=== PATIENT | male | born 1945 | race Caucasian/White ===

== ENCOUNTER → 2016-03-26 | Outpatient (CLI) | payer OTHER, MEDICAID ==
[~2016-03-26] MED LIST: ANALCRE5 TOP; ASPI81TA85 PO; DULO30CA PO; GEMF600T PO; JANU100T PO; LEVA500T PO; LISI10TA4 PO; NAPR220C PO; PRAV40TA2 PO; SING10TA32 PO; TRAM50TA2 PO; TYLE650T25 PO
[2016-03-28 14:22] LABS: PSA TOTAL <0.1 ng/mL (0.0-4.0)
== END ==
LOC: M SMT 14:10
PROVIDERS: ATTEND Urology
DX: Z85.46 Personal history of malignant neoplasm of prostate (principal)

== ENCOUNTER → 2016-04-01 | Outpatient (REF) | payer OTHER, MEDICAID | LOC: M SMT 13:26 | PROVIDERS: ATTEND Urology | DX: R31.29 Other microscopic hematuria (principal) | CPT/HCPCS: 81001; G0463 ==

== ENCOUNTER → 2016-07-04 | Outpatient (CLI) | payer OTHER, MEDICAID ==
[2016-07-04 18:22] LABS: ALBUMIN 4.1 GM/DL (3.2-5.2); ALBUMIN/GLOBULIN RATIO 1.28 (1.00-1.93); ALKALINE PHOSPHATASE 83 U/L (45-117); ALT/SGPT 45 U/L (12-78); ANION GAP 9 MEQ/L (8-16); AST/SGOT 31 U/L (15-37); BILIRUBIN,TOTAL 0.6 MG/DL (0.2-1.0); BLOOD UREA NITROGEN 28 MG/DL (7-18); CALCIUM LEVEL 8.6 MG/DL (8.8-10.2); CARBON DIOXIDE LEVEL 26 MEQ/L (21-32); CHLORIDE LEVEL 105 MEQ/L (98-107); CHOLESTEROL LEVEL 125 MG/DL (<200); CREATININE FOR GFR 1.12 MG/DL (0.70-1.30); GLOMERULAR FILTRATION RATE > 60.0 (>42); GLUCOSE, FASTING 106 MG/DL (83-110); SODIUM LEVEL 140 MEQ/L (136-145); TOTAL PROTEIN 7.3 GM/DL (6.4-8.2); TRIGLYCERIDES LEVEL 64 MG/DL (<150)
[2016-07-04 19:30] LABS: MEAN CORPUSCULAR HEMOGLOBIN 30.7 pg (27.0-33.0); MEAN CORPUSCULAR HGB CONC 34.4 g/dl (32.0-36.5); MEAN CORPUSCULAR VOLUME 89.2 fl (80.0-96.0); RED CELL DISTRIBUTION WIDTH 12.7 % (11.5-14.5); WHITE BLOOD COUNT 8.4 K/mm3 (4.0-10.0)
== END ==
LOC: M SMT 12:02
PROVIDERS: ATTEND Nurse Practitioner Family
DX: E11.9 Type 2 diabetes mellitus without complications (principal); E78.00 Pure hypercholesterolemia, unspecified

== ENCOUNTER → 2016-10-07 | Outpatient (CLI) | payer OTHER, MEDICAID ==
[~2016-10-07] MED LIST changes: +LEVA1TAB2 PO; -LEVA500T PO
== END ==
LOC: M SMT 13:26
PROVIDERS: ATTEND Urology
DX: Z85.46 Personal history of malignant neoplasm of prostate (principal)

== ENCOUNTER → 2016-10-07 | Outpatient (CLI) | payer OTHER, MEDICAID ==
[2016-10-07 19:04] LABS: ALBUMIN 4.1 GM/DL (3.2-5.2); ALBUMIN/GLOBULIN RATIO 1.14 (1.00-1.93); BILIRUBIN,TOTAL 0.5 MG/DL (0.2-1.0); CREATININE FOR GFR 1.28 MG/DL (0.70-1.30); GLOMERULAR FILTRATION RATE 58.6 (>42); POTASSIUM SERUM 4.4 MEQ/L (3.5-5.1); TOTAL PROTEIN 7.7 GM/DL (6.4-8.2)
[2016-10-07 19:13] LABS: MEAN CORPUSCULAR HEMOGLOBIN 31.5 pg (27.0-33.0); MEAN CORPUSCULAR HGB CONC 36.4 g/dl (32.0-36.5); MEAN CORPUSCULAR VOLUME 86.7 fl (80.0-96.0); RED CELL DISTRIBUTION WIDTH 12.6 % (11.5-14.5)
== END ==
LOC: M SMT 13:32
PROVIDERS: ATTEND Internal Medicine Cardiovascular Disease
DX: E78.5 Hyperlipidemia, unspecified (principal); E11.9 Type 2 diabetes mellitus without complications; E55.9 Vitamin D deficiency, unspecified

== ENCOUNTER → 2016-10-07 | Outpatient (CLI) | payer OTHER, MEDICAID ==
[2016-10-07 19:13] LABS: BASO # 0.1 K/mm3 (0.0-0.2); EOS # 0.7 K/mm3 (0.0-0.50); EOS % 11.5 % (0.0-3.0); LARGE UNSTAINED CELL # 0.1 K/mm3 (0.0-0.4); LYMPH # 1.6 K/mm3 (1.5-4.5); LYMPH % 24.3 % (24.0-44.0); MEAN CORPUSCULAR HEMOGLOBIN 29.9 pg (27.0-33.0); MEAN CORPUSCULAR HGB CONC 34.5 g/dl (32.0-36.5); MEAN CORPUSCULAR VOLUME 86.7 fl (80.0-96.0); MONO # 0.5 K/mm3 (0.0-0.8); MONO % 7.8 % (0.0-5.0); NEUTROPHILS # 3.3 K/mm3 (1.8-7.7); NEUTROPHILS % 53.3 % (36.0-66.0); PLATELET COUNT, AUTOMATED 240 k/mm3 (150-450); RED CELL DISTRIBUTION WIDTH 12.7 % (11.5-14.5); WHITE BLOOD COUNT 6.1 K/mm3 (4.0-10.0)
[2016-10-07 19:28] LABS: ALBUMIN 4.2 GM/DL (3.2-5.2); ALKALINE PHOSPHATASE 143 U/L (45-117); ALT/SGPT 57 U/L (12-78); ANION GAP 10 MEQ/L (8-16); AST/SGOT 39 U/L (15-37); BILIRUBIN,TOTAL 0.5 MG/DL (0.2-1.0); BLOOD UREA NITROGEN 19 MG/DL (7-18); CALCIUM LEVEL 9.2 MG/DL (8.8-10.2); CARBON DIOXIDE LEVEL 25 MEQ/L (21-32); CHLORIDE LEVEL 107 MEQ/L (98-107); CREATININE FOR GFR 1.25 MG/DL (0.70-1.30); GLOMERULAR FILTRATION RATE > 60.0 (>42); GLUCOSE, FASTING 126 MG/DL (83-110); PERCENT SATURATION 33.9 % (19.7-50.0); POTASSIUM SERUM 4.5 MEQ/L (3.5-5.1); SODIUM LEVEL 142 MEQ/L (136-145); TOTAL IRON BINDING CAPACITY 330 UG/DL (250-450); TOTAL PROTEIN 7.7 GM/DL (6.4-8.2)
[2016-10-07 20:51] LABS: ERYTHROCYTE SEDIMENTATION RATE 8 mm/hr (0-20)
[2016-10-10 00:08] LABS: Lyme Disease IgG/IgM Antibodie <0.91 ISR (0.00-0.90); Lyme Disease IgM Ab Quantitati <0.80 index (0.00-0.79)
== END ==
LOC: M SMT 13:38
PROVIDERS: ATTEND Internal Medicine Rheumatology
DX: M35.9 Systemic involvement of connective tissue, unspecified (principal); Z51.81 Encounter for therapeutic drug level monitoring; Z79.899 Other long term (current) drug therapy; E78.5 Hyperlipidemia, unspecified; E11.9 Type 2 diabetes mellitus without complications; E55.9 Vitamin D deficiency, unspecified; Z85.46 Personal history of malignant neoplasm of prostate

== ENCOUNTER → 2016-12-03 | Outpatient (CLI) | payer OTHER, MEDICAID ==
--- NOTE | 2016-12-03 16:24 | REP ---
PA and lateral chest: Comparison is the chest CT of 08/24/2013. There is an incomplete inspiratory effort with under aeration of the lung bases. The lung pepper otherwise clear. Cardiac size is normal. The leonie, mediastinum, and bony thorax are unremarkable. Impression: Incomplete inspiratory effort. Otherwise, negative PA and lateral chest. Signed by Kwabena Velasquez MD 12/03/2016 04:16 P
[2016-12-03 19:03] LABS: ALBUMIN 3.9 GM/DL (3.2-5.2); ALBUMIN/GLOBULIN RATIO 1.03 (1.00-1.93); ALKALINE PHOSPHATASE 135 U/L (45-117); ALT/SGPT 48 U/L (12-78); ANION GAP 6 MEQ/L (8-16); AST/SGOT 26 U/L (15-37); BILIRUBIN,TOTAL 0.7 MG/DL (0.2-1.0); BLOOD UREA NITROGEN 20 MG/DL (7-18); CALCIUM LEVEL 8.6 MG/DL (8.8-10.2); CARBON DIOXIDE LEVEL 27 MEQ/L (21-32); CHLORIDE LEVEL 107 MEQ/L (98-107); CREATININE FOR GFR 1.14 MG/DL (0.70-1.30); GAMMA GLUTAMYLTRANSPEPTIDASE 41 U/L (15-85); GLOMERULAR FILTRATION RATE > 60.0 (>42); GLUCOSE, FASTING 104 MG/DL (83-110); POTASSIUM SERUM 4.1 MEQ/L (3.5-5.1); SODIUM LEVEL 140 MEQ/L (136-145); TOTAL PROTEIN 7.7 GM/DL (6.4-8.2)
== END ==
LOC: M SMT 15:29
PROVIDERS: ATTEND Internal Medicine Rheumatology
DX: M17.0 Bilateral primary osteoarthritis of knee (principal); Z79.899 Other long term (current) drug therapy; R74.8 Abnormal levels of other serum enzymes; N18.3 Chronic kidney disease, stage 3 (moderate)

== ENCOUNTER → 2017-01-08 | Outpatient (CLI) | payer OTHER, MEDICAID ==
[2017-01-08 18:44] LABS: MEAN CORPUSCULAR HGB CONC 34.1 g/dl (32.0-36.5); MEAN CORPUSCULAR VOLUME 88.1 fl (80.0-96.0); PLATELET COUNT, AUTOMATED 214 10^3/uL (150-450); RED CELL DISTRIBUTION WIDTH 12.7 % (11.5-14.5); WHITE BLOOD COUNT 7.4 10^3/uL (4.0-10.0)
[2017-01-08 19:23] LABS: ALBUMIN/GLOBULIN RATIO 0.98 (1.00-1.93); ALKALINE PHOSPHATASE 143 U/L (45-117); ALT/SGPT 44 U/L (12-78); ANION GAP 6 MEQ/L (8-16); AST/SGOT 27 U/L (7-37); BILIRUBIN,TOTAL 0.3 MG/DL (0.2-1.0); BLOOD UREA NITROGEN 16 MG/DL (7-18); CALCIUM LEVEL 9.1 MG/DL (8.8-10.2); CARBON DIOXIDE LEVEL 30 MEQ/L (21-32); CHLORIDE LEVEL 106 MEQ/L (98-107); CHOLESTEROL LEVEL 134 MG/DL (<200); CREATININE FOR GFR 1.15 MG/DL (0.70-1.30); GLOMERULAR FILTRATION RATE > 60.0 (>42); GLUCOSE, FASTING 107 MG/DL (83-110); POTASSIUM SERUM 4.5 MEQ/L (3.5-5.1); SODIUM LEVEL 142 MEQ/L (136-145); TOTAL PROTEIN 8.1 GM/DL (6.4-8.2); TRIGLYCERIDES LEVEL 103 MG/DL (<150)
== END ==
LOC: M SMT 12:56
PROVIDERS: ATTEND Internal Medicine Cardiovascular Disease
DX: E55.9 Vitamin D deficiency, unspecified (principal); E78.00 Pure hypercholesterolemia, unspecified; R73.01 Impaired fasting glucose

== ENCOUNTER 2017-01-21 21:45 | Inpatient (IN) | payer OTHER, MEDICAID ==
[~2017-01-21] VITALS: Ht 185.4 cm; Wt 100.0 kg
[2017-01-22 00:55] LABS: VENOUS PARTIAL PRESSURE CO2 47.9 mmHg (38.0-50.0); VENOUS PARTIAL PRESSURE O2 38.1 mmHg (30.0-50.0)
[2017-01-22 00:56] LABS: VENOUS TOTAL CO2 28.4 MEQ/L (24.0-28.0)
[2017-01-22 00:57] LABS: WHITE BLOOD COUNT 10.8 10^3/uL (4.0-10.0)
[2017-01-22 00:58] LABS: MEAN CORPUSCULAR HEMOGLOBIN 29.5 pg (27.0-33.0); MEAN CORPUSCULAR HGB CONC 33.9 g/dl (32.0-36.5); PLATELET COUNT, AUTOMATED 244 10^3/uL (150-450); RED CELL DISTRIBUTION WIDTH 12.8 % (11.5-14.5); VENOUS STANDARD HCO3 24.7 MEQ/L
[2017-01-22 01:25] LABS: ANION GAP 8 MEQ/L (8-16); BLOOD UREA NITROGEN 25 MG/DL (7-18); CARBON DIOXIDE LEVEL 27 MEQ/L (21-32); CHLORIDE LEVEL 107 MEQ/L (98-107); CREATININE FOR GFR 1.24 MG/DL (0.70-1.30); GLOMERULAR FILTRATION RATE > 60.0 (>42); GLUCOSE, FASTING 127 MG/DL (83-110); POTASSIUM SERUM 4.2 MEQ/L (3.5-5.1); SODIUM LEVEL 142 MEQ/L (136-145)
[2017-01-22] MEDS ORDERED: LISI-538 PO (02:43)
[2017-01-22] MEDS ORDERED: GLUCOSE 4 GM CHEW TABLET PO PRN (02:45)
[2017-01-22] MEDS ORDERED: DEXTROSE 50% 50 ML SYRINGE IV PRN (02:45)
[2017-01-22] MEDS ORDERED: CEFT500T3 PO (02:45)
[2017-01-22] MEDS ORDERED: GLUCAGON FOR INJ 1 MG VIAL (J1610) SC PRN (02:45)
[2017-01-22] MEDS ORDERED: OMEP20CA3 PO (02:46)
[2017-01-22] MEDS ORDERED: ISOVUE-370 76% 100ML VIAL (Q9967) As Ordered ONE (02:48)
[2017-01-22 03:49] VITALS: BP 170/80
[2017-01-22] MEDS ORDERED: VANCOMYCIN HCL 1,000 MG, VIAL MATE ADAPTER 1 EACH in D5W 250 ML IV ONE (04:00)
--- NOTE | 2017-01-22 04:04 | PHACANCOPD ---
PHARMACY VANCOMYCIN DOSING Pt Demographics Demographics Patient Age:71 , Weight:100.000 , Gender: male Adjusted Body Weight Date: 01/22/17, Adjusted Body Weight: [88] Kg Events Past 24 Hours Events Past 24 Hours: NO: Dialysis, Diuretic Therapy, Change in CrCl, Fever, Elevation in WBC, Pending Diagnostics, Pending Procedures, Other Vancomycin Vancomycin Target Ranges: 15-20 mcg/ml Vancomycin Load Y/N: Yes Load Dose Date Time Vancomycin Load Dose: 2000MG Date: 01-22 Time: 0500 Vancomycin Dose Date: 01/22/17. Current Vancomycin Dose: [1000MG Q8H] Intermittent Dosing?: No Labs Labs Item Value Date Time White Blood Count 10.8 10^3/uL H 01/22/17 0040 Creatinine 1.24 MG/DL 01/22/17 0040 Blood Urea Nitrogen 25 MG/DL H 01/22/17 0040 Vital Signs Label Value Date Time Patient Temperature 99.1 degrees F 01/22/17 0203 Temperature Source Temporal 01/22/17 0203 Micro Microbiology 01/22/17 Blood Culture, Received Pending 01/22/17 Blood Culture, Received Pending 01/22/17 Gram Stain, Received Pending 01/22/17 Sputum Culture, Received Pending 01/21/17 Influenza Virus Type A Antigen - Final, Complete 01/21/17 Influenza Virus Type B Antigen - Final, Complete Creatinine Clearance Date:01/22/17. Creatinine Clearance: [60]. Pending Labs Trough 01-22 Assessment and Plan Maintaining Current Dose?: Yes Reason for dose change: No Dose Change Pharmacist Note Pharmacist Note Date: 01/22/17. Pharmacist note:Dosed at 1000mg q8h with a trough ordered for . Will continue to monitor and make adjustments as needed. [facility] Jan 22, 2017 04:04
[2017-01-22] MEDS: PRAVASTATIN 20 MG TAB PO SCH ×2 (04:12→20:06)
[2017-01-22] MEDS: NS 1,000 ML IV SCH ×2 (04:13→12:15)
[2017-01-22] MEDS: LISINOPRIL 20 MG TAB PO SCH ×2 (04:13→20:07)
--- NOTE | 2017-01-22 04:20 | REPUSA ---
CLINICAL HISTORY: Infiltrates. TECHNIQUE: Multiple axial CT images were obtained through chest with IV contrast material. MPR hardy l and sagittal sequences were obtained. COMMENTS: Diffuse bilateral subpleural interstitial pulmonary thickening get more prominent in the bases. Mildly enlarged mediastinal and hilar lymph nodes the largest measuring 2.5 cm. There is no evidence of pleural or parenchymal mass. There are no pleural effusions. The heart and great vessels are within normal limits. The visualized portions of the liver are of uniform attenuation without mass or defect. There is no i ntra or extrahepatic biliary ductal dilatation. The spleen is unremarkable. The visualized pancreas i s of normal contour and attenuation characteristics. There is no evidence of adrenal mass. The visual ized portions of the kidneys present no abnormalities. The bony structures are free of lytic or blastic lesions. Multilevel degenerative changes are seen in volving the thoracic spine. Scattered calcifications are seen involving the aorta and visualized paolo r branches compatible with atherosclerosis. No evidence for abnormal enhancement. IMPRESSION: Bilateral changes of usual interstitial pneumonitis. Bilateral basilar associated prominent groundglass densities in the lung bases. Probably superimposed multifocal infection. Chronic bronchitis. Mildly enlarged mediastinal and hilar lymph nodes. Probably reactive. Thank you for your kind referral of this patient. IDE
[2017-01-22] MEDS: VANCOMYCIN HCL 1,000 MG, VIAL MATE ADAPTER 1 EACH in D5W 250 ML IV SCH ×3 (05:58→20:07)
[2017-01-22 06:00] VITALS: BP 149/65
--- NOTE | 2017-01-22 06:28 | HPE ---
DATE OF ADMISSION: 01/22/2017 CHIEF COMPLAINT: The patient, Brad Branch, is a 71-year-old male. The patient comes in with a chief complaint of cough and shortness of breath lasting three weeks. PAST MEDICAL HISTORY: The patient has a previous medical history of hyperlipidemia, hypertension, depression, erectile dysfunction, arthritis, left eye cataract, diabetes mellitus, enlarged prostate, previous syncope, nephrolithiasis. ALLERGIES: No known drug allergies. PAST SURGICAL HISTORY: 1. Bilateral cataract surgery. 2. Back injections. FAMILY HISTORY: Father of stroke at age 73. Mother with cancer in hip at age 74. SOCIAL HISTORY: The patient is a former smoker, non-drinker. No drug use. Drinks 2-5 cups of coffee a day. HOME MEDICATIONS: Include duloxetine, gemfibrozil, levofloxacin for his current pneumonia, lisinopril, montelukast, pravastatin, sitagliptin, tramadol, and naproxen. We will be holding the patient's oral anti-hyperglycemic and switching antibiotic medications. HISTORY OF PRESENT ILLNESS: The patient notes that he has had three weeks of symptoms, cough and shortness of breath. The patient initially thought that he was having his standard sinus infection. He went to three different urgent care centers, did not go to his primary medical doctor (PMD). Patient with poor followup with his PMD, who is not informed of these recent occurrences. Patient started on Augmentin, with that failure went to levofloxacin, and with that failure went to doxycycline. The patient comes in today after no improvement after three weeks of treatment. REVIEW OF SYSTEMS: On 10-system review, the patient was found without any other acute complaints other than what was noted above. PHYSICAL EXAMINATION: The patient is alert and oriented times three, resting comfortably when I came in to see him. His vital signs are 96.4 temperature, pulse 109, respiratory rate 16, blood pressure 183/97, pulse oximetry 95% on room air. The patient has good inspiratory/expiratory effort; however, there are rhonchi and rales on inspiration bilaterally. S1, S2. Regular rate and rhythm. No murmurs, rubs, or gallops. Abdomen is soft, nontender to palpation. Patient with good movement in all four major extremities 5/5. No apparent lymphadenopathy. Head is normocephalic, atraumatic. Extraocular muscles intact. Pupils equal, round, and reactive to light and accommodation. Ears, nose and throat within normal limits. Skin is warm and dry. No apparent lymphadenopathy. LABORATORY DATA: WBC 10.8, hemoglobin and hematocrit are 13.6 over 40.1. Platelet count is 244. Sodium 142, potassium 4.2, chloride 107, carbon dioxide 27, BUN and creatinine 25 over 1.25, fasting glucose 127. (unclear speech) negative. ABG blood gas within normal limits aside from mildly elevated pCO2 28.4. IMAGING: Chest x-ray shows significant infiltrate in what appears to be the right middle lobe near the hilum. ASSESSMENT AND PLAN: The patient is a 71-year-old male who comes in with chief complaint of shortness of breath over three weeks, not improved after three weeks of treatments. 1. The patient will be admitted under the impression of pneumonia, not meeting sepsis criteria. The patient will be admitted to the general medical floor. However, some concern, given the findings for seriousness of the infiltrate, will send for CT. Start intravenous (IV) antibiotics vancomycin and Zosyn, given patient's multiple failures on multiple antibiotics. 2. For patient's depression, continue home medications. 3. For patient's diabetes, insulin sliding scale only at this time. 4. Gastrointestinal (GI) prophylaxis with proton pump inhibitor (PPI). 5. Shortness of breath, most likely secondary to the pneumonia. Two-liters nasal cannula as needed. 6. Deep venous thrombosis (DVT) prophylaxis, not any at this time. The patient is ambulatory and moving about. Given the patient's need for IV antibiotics, I expect the admission to be greater than two midnights. I first saw the patient 01/22/2017.
[2017-01-22 06:44] LABS: ALKALINE PHOSPHATASE 102 U/L (45-117); ALT/SGPT 28 U/L (12-78); ANION GAP 6 MEQ/L (8-16); AST/SGOT 26 U/L (7-37); BILIRUBIN,TOTAL 0.4 MG/DL (0.2-1.0); BLOOD UREA NITROGEN 25 MG/DL (7-18); CALCIUM LEVEL 8.8 MG/DL (8.8-10.2); CARBON DIOXIDE LEVEL 29 MEQ/L (21-32); CHLORIDE LEVEL 106 MEQ/L (98-107); CREATININE FOR GFR 1.13 MG/DL (0.70-1.30); GLOMERULAR FILTRATION RATE > 60.0 (>42); GLUCOSE, FASTING 112 MG/DL (83-110); POTASSIUM SERUM 4.2 MEQ/L (3.5-5.1); SODIUM LEVEL 141 MEQ/L (136-145)
[2017-01-22 06:45] LABS: ALBUMIN 3.2 GM/DL (3.2-5.2); ALBUMIN/GLOBULIN RATIO 0.73 (1.00-1.93); TOTAL PROTEIN 7.6 GM/DL (6.4-8.2)
[2017-01-22] MEDS: PIPERACILLIN/TAZOBACTAM SOD 3.375 GM in APPROPRIATE DILUENT 1 EA IV SCH ×4 (07:14→23:09)
[2017-01-22] MEDS: GEMFIBROZIL 600 MG TAB PO SCH (08:57)
[2017-01-22] MEDS: PANTOPRAZOLE 40MG TAB (PROTONIX) PO SCH (08:57)
[2017-01-22] MEDS: DULoxetine 30 MG CAP (CYMBALTA) PO SCH ×2 (08:57→20:06)
[2017-01-22] MEDS: HumaLOG INSULIN (NovoLOG) PER UNIT SC SCH ×4 (08:58→20:14)
--- NOTE | 2017-01-22 09:34 | ECGEPIP ---
Stationary ECG Study [facility] - ED Test Date: 2017-01-22 Pat Name: OWEN PHILLIPS Department: Room: [place] [address] Gender: M Curriculum Designer: murphy : 1945 Requested By: MARIANNA Gallagher PA-C Order Number: [id number] Reading MD: Ting Blackburn Measurements Intervals Leroy Rate: 89 P: 58 OR: 177 QRS: 16 QRSD: 103 T: 39 QT: 349 QTc: 425 Interpretive Statements SINUS RHYTHM NO PRIOR FOR COMPARISON Electronically Signed On 01-22-2017 9:34:26 EST by Ting Blackburn
--- NOTE | 2017-01-22 10:19 | REP ---
Chest x-ray: Two views. History: Cough x3 weeks. Comparison chest x-ray December 03, 2016. Findings: The lungs are symmetrically aerated. Interstitial markings are diffusely prominent, somewhat more prominent than the earlier study . There is some mild bilateral hilar fullness. Heart is not enlarged. Pulmonary vasculature is not increased. There are degenerative changes in the thoracic spine. Pleural angles are sharp. Impression: Diffuse prominence of pulmonary interstitial markings, more pronounced than on the prior study. Mild bilateral hilar fullness. No focal infiltrate. Signed by Donaldo Pringle MD 01/22/2017 10:10 A
[2017-01-22 14:00] VITALS: BP 158/80
[2017-01-22 20:07] VITALS: BP 136/68
[2017-01-22 22:00] VITALS: BP 155/73
[2017-01-23] MEDS: NS 1,000 ML IV SCH ×3 (03:06→17:44)
[2017-01-23] MEDS: ACETAMINOPHEN TAB 650MG DOSE (2X325MG) PO PRN ×2 (05:06→11:58)
[2017-01-23] MEDS: VANCOMYCIN HCL 1,000 MG, VIAL MATE ADAPTER 1 EACH in D5W 250 ML IV SCH ×3 (05:06→20:10)
[2017-01-23 06:00] VITALS: BP 159/84
[2017-01-23] MEDS: PIPERACILLIN/TAZOBACTAM SOD 3.375 GM in APPROPRIATE DILUENT 1 EA IV SCH ×4 (06:20→23:32)
[2017-01-23 06:50] LABS: ALBUMIN 3.1 GM/DL (3.2-5.2); ALBUMIN/GLOBULIN RATIO 0.78 (1.00-1.93); ALKALINE PHOSPHATASE 89 U/L (45-117); ALT/SGPT 24 U/L (12-78); ANION GAP 7 MEQ/L (8-16); AST/SGOT 27 U/L (7-37); BILIRUBIN,TOTAL 0.6 MG/DL (0.2-1.0); BLOOD UREA NITROGEN 15 MG/DL (7-18); CALCIUM LEVEL 8.3 MG/DL (8.8-10.2); CARBON DIOXIDE LEVEL 27 MEQ/L (21-32); CHLORIDE LEVEL 106 MEQ/L (98-107); CREATININE FOR GFR 1.12 MG/DL (0.70-1.30); GLOMERULAR FILTRATION RATE > 60.0 (>42); GLUCOSE, FASTING 114 MG/DL (83-110); POTASSIUM SERUM 3.8 MEQ/L (3.5-5.1); SODIUM LEVEL 140 MEQ/L (136-145); TOTAL PROTEIN 7.1 GM/DL (6.4-8.2)
[2017-01-23] MEDS: PANTOPRAZOLE 40MG TAB (PROTONIX) PO SCH (08:54)
[2017-01-23] MEDS: DULoxetine 30 MG CAP (CYMBALTA) PO SCH ×2 (08:54→20:09)
[2017-01-23] MEDS: GEMFIBROZIL 600 MG TAB PO SCH (08:54)
[2017-01-23] MEDS: HumaLOG INSULIN (NovoLOG) PER UNIT SC SCH ×4 (08:55→21:00)
[2017-01-23] MEDS: traMADol 50 MG TAB PO PRN ×2 (08:57→20:14)
[2017-01-23 09:20] LABS: MEAN CORPUSCULAR HGB CONC 33.4 g/dl (32.0-36.5); MEAN CORPUSCULAR VOLUME 86.8 fl (80.0-96.0); PLATELET COUNT, AUTOMATED 231 10^3/uL (150-450); RED CELL DISTRIBUTION WIDTH 12.6 % (11.5-14.5); WHITE BLOOD COUNT 8.6 10^3/uL (4.0-10.0)
[2017-01-23 14:00] VITALS: BP 159/80
--- NOTE | 2017-01-23 15:35 | IPN ---
DATE: 03/25/2016 SUBJECTIVE: The patient is seen and examined in the room today. The patient stated his breathing has been improving. He has less cough and there is no fever or chills. No overnight events were reported. OBJECTIVE: VITAL SIGNS: Temperature 98.4, pulse is 77, respiration rate is 18, blood pressure is 159/84, pulse oximetry is 92% in room air. GENERAL: No sign of acute distress. Alert and oriented times three. HEENT: Normocephalic, atraumatic. Extraocular motor grossly intact. CARDIOVASCULAR: Positive S1, S2, regular rate. LUNGS: Positive crackles bilaterally. No significant wheeze is audible during examination. ABDOMEN: Soft, nontender, nondistended. Bowel sounds present. No rebound, no guarding. EXTREMITIES: No edema, no sign of cyanosis. LABORATORY DATA: WBC is 8.6, hemoglobin 12.3, hematocrit 36.8, platelet count is 231. Sodium is 140, potassium 3.8, chloride 106, carbon dioxide 27, BUN 15 creatinine 1.12, GFR greater than 60, fasting glucose 114. Calcium is 8.3. Total bilirubin is 0.6. AST 27, ALT is 24. Alkaline phosphatase is 89. Total protein 7.1. Albumin 3.1. ASSESSMENT AND PLAN: 1. Community-acquired pneumonia. Sputum sample obtained. Patient has a history of failing three different outpatient oral antibiotic regimen. CT imaging was performed and showed ground glass density in the lung bases. There is a probable superimposed multifocal infection. Currently, the patient is on broad-spectrum antibiotic Will tailor it when the sputum culture is available. 2. Diabetes. On sliding scale and consistent-carbohydrate diet. 3. BPH. Continue to monitor. 4. Dyslipidemia. On Lopid and pravastatin. 5. Depression. On Cymbalta. 6. Hypertension. On lisinopril. 7. Deep vein thrombosis (DVT) prophylaxis. On heparin.
[2017-01-23] MEDS: HEPARIN SOD (PORCINE) 5000 UNITS/ML VIAL SQ SCH ×2 (15:56→22:00)
[2017-01-23 20:02] VITALS: BP 178/87
[2017-01-23] MEDS: PRAVASTATIN 20 MG TAB PO SCH (20:10)
[2017-01-23] MEDS ORDERED: LISINOPRIL 40 MG TAB PO SCH (21:00)
[2017-01-24] MEDS: NS 1,000 ML IV SCH (03:23)
[2017-01-24 05:00] VITALS: BP 165/84
[2017-01-24] MEDS: PIPERACILLIN/TAZOBACTAM SOD 3.375 GM in APPROPRIATE DILUENT 1 EA IV SCH (05:15)
[2017-01-24] MEDS: VANCOMYCIN HCL 1,000 MG, VIAL MATE ADAPTER 1 EACH in D5W 250 ML IV SCH (05:16)
[2017-01-24] MEDS: HEPARIN SOD (PORCINE) 5000 UNITS/ML VIAL SQ SCH (05:20)
[2017-01-24 05:55] LABS: MEAN CORPUSCULAR HEMOGLOBIN 29.2 pg (27.0-33.0); MEAN CORPUSCULAR HGB CONC 33.8 g/dl (32.0-36.5); MEAN CORPUSCULAR VOLUME 86.4 fl (80.0-96.0); PLATELET COUNT, AUTOMATED 233 10^3/uL (150-450); RED CELL DISTRIBUTION WIDTH 12.6 % (11.5-14.5)
[2017-01-24 06:12] LABS: ANION GAP 3 MEQ/L (8-16); BLOOD UREA NITROGEN 12 MG/DL (7-18); CALCIUM LEVEL 8.2 MG/DL (8.8-10.2); CARBON DIOXIDE LEVEL 30 MEQ/L (21-32); CHLORIDE LEVEL 106 MEQ/L (98-107); CREATININE FOR GFR 1.13 MG/DL (0.70-1.30); GLOMERULAR FILTRATION RATE > 60.0 (>42); GLUCOSE, FASTING 98 MG/DL (83-110); SODIUM LEVEL 139 MEQ/L (136-145)
[2017-01-24] MEDS: HumaLOG INSULIN (NovoLOG) PER UNIT SC SCH (07:30)
[2017-01-24] MEDS ORDERED: PNEUMOCOCCAL VACCINE 0.5ML SYRINGE(90732) PNEUMOVAX 23 IM ONE (09:00)
[2017-01-24] MEDS ORDERED: INFLUENZA VIRUS VACCINE HIGH DOSE 0.5 ML SYRINGE (90662) IM ONE (09:00)
[2017-01-24] MEDS: GEMFIBROZIL 600 MG TAB PO SCH (09:07)
[2017-01-24] MEDS: DULoxetine 30 MG CAP (CYMBALTA) PO SCH (09:07)
[2017-01-24] MEDS: PANTOPRAZOLE 40MG TAB (PROTONIX) PO SCH (09:07)
[2017-01-24] MEDS: traMADol 50 MG TAB PO PRN (09:08)
[2017-01-24] MEDS ORDERED: LISI40TAB PO ×2 (11:26→12:21)
[2017-01-24] MEDS ORDERED: BACT800T5 PO ×2 (11:26→12:21)
[2017-01-24] MEDS ORDERED: BACITAB PO ×2 (11:27→12:21)
--- NOTE | 2017-01-24 16:42 | DSES ---
DATE OF ADMISSION: 01/22/2017 DATE OF DISCHARGE: 01/24/2017 CONSULTANTS: None. PROCEDURES: None. DISCHARGE DIAGNOSES: 1. Community-acquired pneumonia. 2. Diabetes. 3. Benign prostatic hypertrophy. 4. Dyslipidemia. 5. Depression. 6. Hypertension. HOSPITALIZATION COURSE: Patient is a 71-year-old male who previously had worsening respiratory function. Patient has been visiting urgent care multiple times, and patient has received three different courses of antibiotics; however, his symptoms did not get significant improvement; therefore, he came to [facility] for further evaluation for documentation. Patient was on Augmentin, Levaquin, and doxycycline previously at different times. After patient arrived to the emergency room, imaging study was performed. Patient was found to have prominent ground-glass density in the lung base and probably superimposed multifocal infection. Sputum sample was obtained, and patient was started on broad-spectrum antibiotics. On 01/24/2017, patient was determined stable for discharge with recommendation to finish course of oral antibiotic, and patient is instructed to followup with her primary care provider on 01/27/2017. VITAL SIGNS ON DISCHARGE: Temperature 98.6, pulse 70, respirations 16, blood pressure 165/84, pulse oximetry 94% in room air. LABORATORY DATA ON DATE OF DISCHARGE: WBC 9, hemoglobin 12.3, hematocrit 36.1, platelet count is 233. Sodium is 139, potassium 4, chloride 106, carbon dioxide 30, BUN 12, creatinine 1.13, GFR is greater than 60, fasting glucose is 98, calcium 8.2, C-reactive protein 0.42. Microbiology: Blood cultures show no growth after 48 hours. Official report pending. Blood cultures times two sets. Influenza screening is negative. Sputum culture obtained from 01/22/2017 showed normal osmany (prior to the sample collection, patient already started on approximately 3 weeks of oral antibiotics). IMAGING STUDY: Chest x-ray showed diffuse prominent pulmonary interstitial markings. Mild bilateral hilar fullness. CT of the chest with contrast shows bilateral changes of usual interstitial pneumonitis. Bilateral basilar prominent ground-glass density, probably superimposed multifocal infection on chronic bronchitis. Mildly enlarged mediastinal and hilar lymph node, probably reactive. DISCHARGE INSTRUCTIONS: Discontinue line. Discharge home. Activity as tolerated. Consistent-carbohydrate diet as tolerated. Low-salt diet as tolerated. Patient should finish the oral antibiotics, and patient recommended to followup with his primary care provider on 01/27/2017. DISCHARGE MEDICATIONS: - Bacid one tablet by mouth with meals for 5 days - lisinopril 40 mg by mouth daily - Bactrim one tablet by mouth twice a day for 4 days - Cymbalta 30 mg by mouth twice a day - gemfibrozil 600 mg by mouth daily - Singulair 10 mg by mouth at bedtime - Naproxen 220 mg by mouth at bedtime as needed - omeprazole 40 mg by mouth daily - pravastatin 40 mg by mouth at bedtime - Januvia 100 mg by mouth at bedtime - tramadol 50 mg by mouth every 6 hours as needed DISCHARGE TIME: Greater than 30 minutes.
== END 2017-01-24 12:45 | disposition home or self-care (01) | DRG 195 ==
LOC: M ED 21:45 → M ED INP 01-22 02:42 → M MSPAV 01-22 03:47
PROVIDERS: ADMIT Internal Medicine; ATTEND Internal Medicine
DX: J18.9 Pneumonia, unspecified organism (principal); E11.9 Type 2 diabetes mellitus without complications; N40.0 Benign prostatic hyperplasia without lower urinary tract symptoms; E78.5 Hyperlipidemia, unspecified; I10 Essential (primary) hypertension; F32.9 Major depressive disorder, single episode, unspecified; Z79.899 Other long term (current) drug therapy; N52.9 Male erectile dysfunction, unspecified; M19.90 Unspecified osteoarthritis, unspecified site; Z87.891 Personal history of nicotine dependence

== ENCOUNTER → 2017-01-27 | Outpatient (CLI) | payer OTHER, MEDICAID ==
[~2017-01-27] MED LIST changes: +BACITAB PO; +BACT800T5 PO; +CEFT500T3 PO; +LISI-538 PO; +LISI40TAB PO; +OMEP20CA3 PO
--- NOTE | 2017-01-27 14:00 | REP ---
Clinical: Follow up right middle lobe pneumonia. Comparison: 01/21/2017 Findings: The Mediastinum and cardiac silhouette are within normal limits and stable. Underlying hilar adenopathy as previously identified (see CT dated 01/22/2017) cannot be excluded. Lung pepper demonstrate diffuse chronic fibrosis and interstitial changes. No discrete focal consolidation identified. No definite effusion. No pneumothorax. Skeletal structures are intact. Impression: Diffuse chronic fibrosis and interstitial changes similar to prior examination. Hilar adenopathy as previously identified on CT cannot be excluded. No focal consolidation or effusion. Signed by Dayton Barillas MD 01/27/2017 01:52 P
== END ==
LOC: M SMT 13:17
PROVIDERS: ATTEND Nurse Practitioner Family
DX: J18.9 Pneumonia, unspecified organism (principal)

== ENCOUNTER 2017-02-26 15:51 | Emergency (ER) | payer OTHER, MEDICAID ==
[2017-02-26 18:18] LABS: MEAN CORPUSCULAR HEMOGLOBIN 29.4 pg (27.0-33.0); MEAN CORPUSCULAR HGB CONC 33.4 g/dl (32.0-36.5); PLATELET COUNT, AUTOMATED 221 10^3/uL (150-450); RED CELL DISTRIBUTION WIDTH 12.8 % (11.5-14.5); WHITE BLOOD COUNT 7.2 10^3/uL (4.0-10.0)
[2017-02-26 18:37] LABS: POSITIVE DIFF POS FLAG
[2017-02-26 18:38] LABS: ADD MANUAL DIFFER YES; DIFF SLIDE NUMBER 280
[2017-02-26 18:42] LABS: BASOPHILS 3 % (0-4); EOSINOPHILS 21 % (0-5)
[2017-02-26 18:45] LABS: ANION GAP 6 MEQ/L (8-16); BLOOD UREA NITROGEN 13 MG/DL (7-18); CALCIUM LEVEL 8.7 MG/DL (8.8-10.2); CARBON DIOXIDE LEVEL 28 MEQ/L (21-32); CHLORIDE LEVEL 105 MEQ/L (98-107); CREATININE FOR GFR 0.92 MG/DL (0.70-1.30); GLOMERULAR FILTRATION RATE > 60.0 (>42); GLUCOSE, FASTING 87 MG/DL (83-110); POTASSIUM SERUM 4.2 MEQ/L (3.5-5.1); SODIUM LEVEL 139 MEQ/L (136-145)
[2017-02-26] MEDS: BENZONATATE 100 MG CAP PO (19:48)
== END 2017-02-26 19:51 | disposition home or self-care (01) ==
LOC: M ED 15:51
DX: J32.9 Chronic sinusitis, unspecified (principal); R05 Cough; Z87.891 Personal history of nicotine dependence; Z79.899 Other long term (current) drug therapy
CPT/HCPCS: 71020

== ENCOUNTER → 2017-03-19 | Outpatient (CLI) | payer OTHER, MEDICAID | LOC: M RAD 13:58 | DX: J32.4 Chronic pansinusitis (principal) | CPT/HCPCS: 70486 ==

== ENCOUNTER → 2017-04-09 | Outpatient (CLI) | payer OTHER, MEDICAID | LOC: M RAD 12:23 | DX: J32.4 Chronic pansinusitis (principal) | CPT/HCPCS: 70486 ==

== ENCOUNTER → 2017-04-28 | Outpatient (CLI) | payer OTHER, MEDICAID ==
[2017-04-28 13:22] LABS: PROSTATIC SPECIFIC AG MONITOR < 0.01 NG/ML (< 4.0)
== END ==
LOC: M SMT 10:31
DX: Z85.46 Personal history of malignant neoplasm of prostate (principal)
CPT/HCPCS: 84153

== ENCOUNTER → 2017-06-20 | Outpatient (CLI) | payer OTHER, MEDICAID ==
[2017-06-20 13:56] LABS: HEMATOCRIT 41.4 % (42.0-52.0); MEAN CORPUSCULAR HEMOGLOBIN 29.2 pg (27.0-33.0); MEAN CORPUSCULAR HGB CONC 33.8 g/dl (32.0-36.5); MEAN CORPUSCULAR VOLUME 86.3 fl (80.0-96.0); PLATELET COUNT, AUTOMATED 346 10^3/uL (150-450); RED CELL DISTRIBUTION WIDTH 13.5 % (11.5-14.5); WHITE BLOOD COUNT 12.3 10^3/uL (4.0-10.0)
[2017-06-20 14:42] LABS: ALBUMIN 3.5 GM/DL (3.2-5.2); ALBUMIN/GLOBULIN RATIO 0.88 (1.00-1.93); ALKALINE PHOSPHATASE 106 U/L (45-117); ALT/SGPT 32 U/L (12-78); ANION GAP 5 MEQ/L (8-16); AST/SGOT 17 U/L (7-37); BILIRUBIN,TOTAL 0.4 MG/DL (0.2-1.0); BLOOD UREA NITROGEN 26 MG/DL (7-18); CALCIUM LEVEL 8.7 MG/DL (8.8-10.2); CARBON DIOXIDE LEVEL 31 MEQ/L (21-32); CHLORIDE LEVEL 105 MEQ/L (98-107); CHOLESTEROL LEVEL 168 MG/DL (<200); CHOLESTEROL RISK RATIO 2.947 (<5); CPK CREATINE PHOSPHOKINASE 41 U/L (39-308); GLOMERULAR FILTRATION RATE > 60.0 (>42); GLUCOSE, FASTING 93 MG/DL (70-100); HDL CHOLESTEROL 57 MG/DL (>40); LDL CHOLESTEROL 88.4 MG/DL (<100); NON-HDL-C 111 MG/DL; POTASSIUM SERUM 4.1 MEQ/L (3.5-5.1); SODIUM LEVEL 141 MEQ/L (136-145); TOTAL PROTEIN 7.5 GM/DL (6.4-8.2); TRIGLYCERIDES LEVEL 113 MG/DL (<150)
[2017-06-20 14:53] LABS: MALB URINE SIEMENS 13.3 MG/L; MAU/CREAT RATIO 11.2 MCG/MG (0.0-30.0)
[2017-06-20 15:04] LABS: ESTIMATED AVERAGE GLUCOSE 131 MG/DL (60-110); HEMOGLOBIN A1c 6.2 %
== END ==
LOC: M LAB 13:13
DX: E11.9 Type 2 diabetes mellitus without complications (principal); I10 Essential (primary) hypertension; E78.5 Hyperlipidemia, unspecified
CPT/HCPCS: 82550

== ENCOUNTER → 2017-07-04 | Outpatient (CLI) | payer OTHER | LOC: M RAD 13:03 | DX: J32.4 Chronic pansinusitis (principal); J34.89 Other specified disorders of nose and nasal sinuses | CPT/HCPCS: 70486 ==

== ENCOUNTER 2017-08-20 15:34 | Emergency (ER) | payer OTHER | END 2017-08-20 18:09 | disposition home or self-care (01) | LOC: M ED 15:34 | DX: J06.9 Acute upper respiratory infection, unspecified (principal); R05 Cough; E11.9 Type 2 diabetes mellitus without complications; I10 Essential (primary) hypertension; Z87.01 Personal history of pneumonia (recurrent); Z90.79 Acquired absence of other genital organ(s); Z87.891 Personal history of nicotine dependence; Z79.899 Other long term (current) drug therapy | CPT/HCPCS: 71046 ==

== ENCOUNTER → 2017-09-29 | Outpatient (CLI) | payer OTHER, MEDICAID | LOC: M RAD 10:45 | DX: R91.8 Other nonspecific abnormal finding of lung field (principal) | CPT/HCPCS: 71250 ==

== ENCOUNTER → 2017-11-07 | Outpatient (CLI) | payer OTHER, MEDICAID ==
[2017-11-07 16:55] LABS: PROSTATIC SPECIFIC AG MONITOR < 0.01 NG/ML (< 4.0)
== END ==
LOC: M LAB 15:27
DX: Z85.46 Personal history of malignant neoplasm of prostate (principal)
CPT/HCPCS: 84153

== ENCOUNTER → 2017-12-17 | Outpatient (REF) | payer OTHER, MEDICAID | LOC: M LAB REF 12:40 | DX: R05 Cough (principal); J47.9 Bronchiectasis, uncomplicated | CPT/HCPCS: 87116 ==

== ENCOUNTER → 2017-12-18 | Outpatient (REF) | payer OTHER, MEDICAID | LOC: M LAB REF 13:04 | DX: J47.9 Bronchiectasis, uncomplicated (principal); R05 Cough | CPT/HCPCS: 87116 ==

== ENCOUNTER → 2018-01-01 | Outpatient (CLI) | payer OTHER, MEDICAID | LOC: M CARPUL 12:58 | DX: 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 [Churg-Strauss] (principal); I50.30 Unspecified diastolic (congestive) heart failure | CPT/HCPCS: 93306 ==

== ENCOUNTER → 2018-01-14 | Outpatient (CLI) | payer OTHER, MEDICAID ==
[2018-01-14 18:17] LABS: BASO # 0.1 10^3/uL (0.0-0.2); BASO % 0.9 % (0.0-1.0); EOS # 0.3 10^3/uL (0.0-0.50); EOS % 4.6 % (0.0-3.0); HEMATOCRIT 39.5 % (42.0-52.0); IMMATURE GRANULOCYTE % 0.3 % (0-3.0); LYMPH # 1.3 10^3/uL (1.5-4.5); MEAN CORPUSCULAR HEMOGLOBIN 28.8 pg (27.0-33.0); MEAN CORPUSCULAR HGB CONC 32.9 g/dl (32.0-36.5); MEAN CORPUSCULAR VOLUME 87.6 fl (80.0-96.0); MONO # 0.7 10^3/uL (0.0-0.8); MONO % 10.2 % (0.0-5.0); NEUTROPHILS # 4.6 10^3/uL (1.8-7.7); PLATELET COUNT, AUTOMATED 298 10^3/uL (150-450); RED BLOOD COUNT 4.51 10^6/uL (4.30-6.10); RED CELL DISTRIBUTION WIDTH 12.8 % (11.5-14.5); WHITE BLOOD COUNT 6.9 10^3/uL (4.0-10.0)
[2018-01-14 18:41] LABS: ALBUMIN 3.9 GM/DL (3.2-5.2); ALKALINE PHOSPHATASE 84 U/L (45-117); ALT/SGPT 34 U/L (12-78); ANION GAP 6 MEQ/L (8-16); AST/SGOT 24 U/L (7-37); BILIRUBIN,TOTAL 0.6 MG/DL (0.2-1.0); BLOOD UREA NITROGEN 28 MG/DL (7-18); CARBON DIOXIDE LEVEL 31 MEQ/L (21-32); CHLORIDE LEVEL 104 MEQ/L (98-107); CREATININE FOR GFR 1.46 MG/DL (0.70-1.30); GLOMERULAR FILTRATION RATE 50.2 (>42); GLUCOSE, FASTING 110 MG/DL (70-100); POTASSIUM SERUM 5.1 MEQ/L (3.5-5.1); SODIUM LEVEL 141 MEQ/L (136-145); TOTAL PROTEIN 7.8 GM/DL (6.4-8.2)
== END ==
LOC: M LAB 16:23
DX: R76.11 Nonspecific reaction to tuberculin skin test without active tuberculosis (principal)
CPT/HCPCS: 80053

== ENCOUNTER → 2018-01-30 | Outpatient (CLI) | payer OTHER, MEDICAID ==
[2018-01-30 16:46] LABS: BASO % 0.5 % (0.0-1.0); EOS # 0.2 10^3/uL (0.0-0.50); EOS % 2.1 % (0.0-3.0); HEMATOCRIT 36.6 % (42.0-52.0); HEMOGLOBIN 12.1 g/dl (13.5-17.5); IMMATURE GRANULOCYTE % 0.5 % (0-3.0); LYMPH # 1.2 10^3/uL (1.5-4.5); LYMPH % 15.5 % (24.0-44.0); MEAN CORPUSCULAR HEMOGLOBIN 29.4 pg (27.0-33.0); MEAN CORPUSCULAR HGB CONC 33.1 g/dl (32.0-36.5); MEAN CORPUSCULAR VOLUME 89.1 fl (80.0-96.0); MONO # 0.5 10^3/uL (0.0-0.8); MONO % 5.8 % (0.0-5.0); NEUTROPHILS % 75.6 % (36.0-66.0); PLATELET COUNT, AUTOMATED 260 10^3/uL (150-450); RED BLOOD COUNT 4.11 10^6/uL (4.30-6.10); RED CELL DISTRIBUTION WIDTH 13.1 % (11.5-14.5); WHITE BLOOD COUNT 7.9 10^3/uL (4.0-10.0)
== END ==
LOC: M LAB 15:50
DX: Z51.81 Encounter for therapeutic drug level monitoring (principal); Z79.899 Other long term (current) drug therapy
CPT/HCPCS: 85027

== ENCOUNTER → 2018-02-17 | Outpatient (CLI) | payer MEDICAID, OTHER ==
[~2018-02-17] MED LIST changes: +ALBU83IN; +ALBU83IN INH; +AMLO5TAB4; +AMLO5TAB4 PO; +AUGM875T28; +BENZ-18 PO; +BENZ200C70 PO; +FLON1SPR; +FLUTISP; -GEMF600T PO; +GEMF600T5 PO; +GUAI1TAB PO; +MUCI600T31 PO; +PRED10TA2 PO; +PRED20TA PO; +SITA50TAB PO; +TESS100C PO; +ZITHTAB PO
[2018-02-17 17:06] LABS: BASO # 0.1 10^3/uL (0.0-0.2); BASO % 0.8 % (0.0-1.0); EOS # 0.3 10^3/uL (0.0-0.50); EOS % 3.3 % (0.0-3.0); HEMATOCRIT 37.2 % (42.0-52.0); HEMOGLOBIN 12.6 g/dl (13.5-17.5); LYMPH # 1.4 10^3/uL (1.5-4.5); LYMPH % 17.5 % (24.0-44.0); MEAN CORPUSCULAR HGB CONC 33.9 g/dl (32.0-36.5); MEAN CORPUSCULAR VOLUME 88.6 fl (80.0-96.0); MONO # 0.9 10^3/uL (0.0-0.8); MONO % 11.8 % (0.0-5.0); NEUTROPHILS # 5.3 10^3/uL (1.8-7.7); NEUTROPHILS % 66.3 % (36.0-66.0); PLATELET COUNT, AUTOMATED 263 10^3/uL (150-450)
[2018-02-17 17:46] LABS: ALBUMIN 3.6 GM/DL (3.2-5.2); BILIRUBIN,TOTAL 0.4 MG/DL (0.2-1.0); C REACTIVE PROTEIN QUANTITATIV 0.63 MG/DL (0.00-0.30); CALCIUM LEVEL 8.5 MG/DL (8.8-10.2); CREATININE FOR GFR 1.46 MG/DL (0.70-1.30); GLOMERULAR FILTRATION RATE 50.2 (>42); POTASSIUM SERUM 4.5 MEQ/L (3.5-5.1); TOTAL PROTEIN 7.3 GM/DL (6.4-8.2)
== END ==
LOC: M LAB 16:18
PROVIDERS: ATTEND Internal Medicine
DX: R76.11 Nonspecific reaction to tuberculin skin test without active tuberculosis (principal)

== ENCOUNTER → 2018-04-01 | Outpatient (REF) | payer MEDICARE ==
[~2018-04-01] MED LIST changes: -AMLO5TAB4; -AMLO5TAB4 PO; +AMLO5TAB6; +AMLO5TAB6 PO; +LISI40TA PO; -LISI40TAB PO
[2018-04-01 16:07] LABS: FREE T4 0.71 NG/DL (0.76-1.46); RHEUMATOID FACTOR QUANT < 10.0 IU/ML (<15.0); TOTAL PROTEIN 7.6 GM/DL (6.4-8.2)
[2018-04-01 16:09] LABS: FOLATE 8.9 NG/ML
[2018-04-01 16:14] LABS: HEMOGLOBIN A1c 6.4 %
[2018-04-02 11:44] LABS: ALBUMIN 4.29 GM/DL (3.29-5.55); ALBUMIN % 56.5 % (55.8-66.1); ALPHA-1-GLOBULIN % 4.2 % (2.9-4.9); ALPHA-1-GLOBULINS 0.32 GM/DL (0.17-0.41); ALPHA-2-GLOBULINS 0.89 GM/DL (0.42-0.99); ALPHA-2-GLOBULINS % 11.7 % (7.1-11.8); BETA-1-GLOBULINS 0.41 GM/DL (0.28-0.60); BETA-1-GLOBULINS % 5.4 % (4.7-7.2); BETA-2-GLOBULINS 0.36 GM/DL (0.19-0.55); BETA-2-GLOBULINS % 4.8 % (3.2-6.5); GAMMA GLOBULIN % 17.4 % (11.1-18.8); GAMMA GLOBULINS 1.32 GM/DL (0.65-1.58)
[2018-04-03 09:30] LABS: VITAMIN B12 LEVEL 242 PG/ML (232-1245)
[2018-04-07 10:43] LABS: DRVV SCREEN 45.2 SEC; PTT LUPUS TYPE ANTICOAG SCREEN 1.1 (0-1.2)
== END ==
LOC: M LABDRAWP 14:29 → M LABNEURO 14:29
PROVIDERS: ATTEND Psychiatry & Neurology Neurology
DX: M54.5 Low back pain (principal); M54.2 Cervicalgia; E07.9 Disorder of thyroid, unspecified

== ENCOUNTER → 2018-05-06 | Outpatient (CLI) | payer MEDICAID, MEDICARE ==
[2018-05-06 13:36] LABS: BASO # 0.1 10^3/uL (0.0-0.2); EOS # 0.6 10^3/uL (0.0-0.50); EOS % 7.4 % (0.0-3.0); HEMATOCRIT 37.1 % (42.0-52.0); HEMOGLOBIN 12.5 g/dl (13.5-17.5); LYMPH # 1.8 10^3/uL (1.5-4.5); LYMPH % 22.3 % (24.0-44.0); MEAN CORPUSCULAR HEMOGLOBIN 30.1 pg (27.0-33.0); MEAN CORPUSCULAR HGB CONC 33.7 g/dl (32.0-36.5); MEAN CORPUSCULAR VOLUME 89.4 fl (80.0-96.0); MONO # 1.1 10^3/uL (0.0-0.8); MONO % 13.1 % (0.0-5.0); NEUTROPHILS # 4.6 10^3/uL (1.8-7.7); NEUTROPHILS % 55.8 % (36.0-66.0); PLATELET COUNT, AUTOMATED 247 10^3/uL (150-450); RED BLOOD COUNT 4.15 10^6/uL (4.30-6.10); WHITE BLOOD COUNT 8.2 10^3/uL (4.0-10.0)
[2018-05-06 14:26] LABS: ALT/SGPT 27 U/L (12-78); BILIRUBIN,TOTAL 0.5 MG/DL (0.2-1.0); BLOOD UREA NITROGEN 31 MG/DL (7-18); C REACTIVE PROTEIN QUANTITATIV < 0.30 MG/DL (0.00-0.30); CALCIUM LEVEL 8.9 MG/DL (8.8-10.2); CARBON DIOXIDE LEVEL 29 MEQ/L (21-32); CHLORIDE LEVEL 104 MEQ/L (98-107); CREATININE FOR GFR 1.13 MG/DL (0.70-1.30); GLOMERULAR FILTRATION RATE > 60.0 (>42); GLUCOSE, FASTING 116 MG/DL (70-100); POTASSIUM SERUM 4.5 MEQ/L (3.5-5.1); SODIUM LEVEL 139 MEQ/L (136-145); TOTAL PROTEIN 7.5 GM/DL (6.4-8.2)
== END ==
LOC: M LAB 12:26
PROVIDERS: ATTEND Internal Medicine
DX: 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 [Churg-Strauss] (principal)

== ENCOUNTER → 2018-05-08 | Outpatient (CLI) | payer MEDICARE ==
--- NOTE | 2018-05-11 10:52 | ECHO ---
DATE OF STUDY: 05/08/2018 REFERRING PHYSICIAN: Dr. Santosh Duran INDICATION: Polyarteritis with lung involvement. HEIGHT: 6 feet 0 inches. WEIGHT: 244 pounds. 2-D MEASUREMENTS: Aortic annulus: 2.3 cm Left atrium: 4.2 cm Ventricular septum: 0.95 cm Posterior wall: 0.99 cm Left ventricle diastole: 5.5 cm Inferior vena cava: 1.7 cm Aortic root: 3.0 cm DOPPLER MEASUREMENTS: Aortic valve velocity: 105 cm/s LVOT velocity: 73.7 cm/s Mitral E velocity: 64.2 cm/s Mitral A velocity: 52.8 cm/s Mitral deceleration time: 208 ms Very mild tricuspid regurgitation. Estimated right ventricle systolic pressure 36 mmHg assuming an atrial pressure of 5 mmHg. Pulmonary artery systolic pressure 31 mmHg by pulmonary acceleration method. MITRAL ANNULAR TISSUE DOPPLER: E prime septal: 9.2 cm/s DESCRIPTION: Rhythm was sinus. Image quality was fair. No pericardial effusion. This was a 2-D, M-mode, color flow Doppler and pulse waved Doppler examination and included mitral annular tissue Doppler. CONCLUSIONS: 1. Normal left ventricle internal dimensions and wall thickness. Normal regional LV wall motion and wall thickening. Normal LV systolic function. Left ventricular ejection fraction (LVEF) 70% by visual estimate. Normal LV diastolic function. 2. Suggestive of mild elevation of estimated right ventricle systolic pressure and pulmonary artery systolic pressure. 3. Mild aortic valve sclerosis of a 3-cusp aortic valve. No aortic regurgitation. 4. Otherwise, normal appearing echocardiogram-Doppler findings.
== END ==
LOC: M CARPUL 13:50
PROVIDERS: ATTEND Internal Medicine
DX: 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 [Churg-Strauss] (principal); I35.8 Other nonrheumatic aortic valve disorders

== ENCOUNTER → 2018-05-29 | Outpatient (CLI) | payer MEDICARE ==
[2018-05-29 17:38] LABS: BASO # 0.1 10^3/uL (0.0-0.2); BASO % 0.6 % (0.0-1.0); EOS # 0.4 10^3/uL (0.0-0.50); HEMATOCRIT 39.5 % (42.0-52.0); HEMOGLOBIN 13.2 g/dl (13.5-17.5); LYMPH % 20.6 % (24.0-44.0); MEAN CORPUSCULAR HEMOGLOBIN 29.9 pg (27.0-33.0); MEAN CORPUSCULAR HGB CONC 33.4 g/dl (32.0-36.5); MEAN CORPUSCULAR VOLUME 89.4 fl (80.0-96.0); MONO % 10.6 % (0.0-5.0); NEUTROPHILS # 6.2 10^3/uL (1.8-7.7); NEUTROPHILS % 63.6 % (36.0-66.0); PLATELET COUNT, AUTOMATED 321 10^3/uL (150-450); RED BLOOD COUNT 4.42 10^6/uL (4.30-6.10); WHITE BLOOD COUNT 9.8 10^3/uL (4.0-10.0)
[2018-05-29 17:49] LABS: ALT/SGPT 35 U/L (12-78); BILIRUBIN,TOTAL 0.4 MG/DL (0.2-1.0); BLOOD UREA NITROGEN 28 MG/DL (7-18); C REACTIVE PROTEIN QUANTITATIV < 0.30 MG/DL (0.00-0.30); CALCIUM LEVEL 8.7 MG/DL (8.8-10.2); CARBON DIOXIDE LEVEL 26 MEQ/L (21-32); CHLORIDE LEVEL 108 MEQ/L (98-107); CREATININE FOR GFR 1.33 MG/DL (0.70-1.30); GLUCOSE, FASTING 108 MG/DL (70-100); POTASSIUM SERUM 4.6 MEQ/L (3.5-5.1); SODIUM LEVEL 142 MEQ/L (136-145); TOTAL PROTEIN 7.8 GM/DL (6.4-8.2)
== END ==
LOC: M SMT 15:24
PROVIDERS: ATTEND Internal Medicine
DX: 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 [Churg-Strauss] (principal)

== ENCOUNTER → 2018-06-09 | Outpatient (CLI) | payer MEDICARE, MEDICAID ==
[~2018-06-09] MED LIST changes: -DULO30CA PO; +DULO30CA9 PO
--- NOTE | 2018-06-24 00:26 | ECWPNPC ---
PATIENT NAME: OWEN PHILLIPS : 1945 GENDER: MALE VISIT DATE: 06/09/2018 DISCHARGE DATE: 06/09/18 1513 VISIT LOCKED DATE TIME: PHYSICIAN: HARI VIGIL RESOURCE: HARI VIGIL REASON FOR APPOINTMENT 1. BACK PAIN W/ SCIATICA HISTORY OF PRESENT ILLNESS PAIN SCREENIN72 Y/O MALE REFERRED BY DR PURI,RHEUMATOLOGY IN [place], [place] FOR EVALUATION OF CHRONIC LOW BACK PAIN.THIS HAS BEEN A CHRONIC ISSUE OVER THE YEARSGENERALLY HURTS ALL OVER.TAKING CYMBALTA AND TYLENOL ARTHRITIS IN AM.DESCRIBES PAIN CONSTANT AND STEADY.PAIN IS AGGREVATED BY PROLONGED WALKING OR STANDING.RELIEVD SOMEWHAT WITH HOT SHOWER.RATING PAIN A 4/10 VAS.PAIN AWAKENS HIM FROM SLEEP AT TIMES.LOW BACK IS REPORTED WORSE AREA OF PAIN.DENIES RECENT FEVER,ILLNESS OR WEIGHT LOSS.DENIES BOWEL OR BLADDER INCONTINENCE. PATIENT HAS A COMPLAINT OF ACUTE OR CHRONIC PAIN :YES FALL RISK SCREENING: SCREENING :NO FALLS REPORTED IN THE LAST YEAR CURRENT MEDICATIONS TAKING GEMFIBROZIL 600 MG TABLET 1 TABLET ORALLY DAILY TAKING JANUVIA 100 MG TABLET 1 TABLET ORALLY ONCE A DAY TAKING LISINOPRIL 20 MG TABLET 1 TABLET ORALLY ONCE A DAY TAKING PRAVASTATIN 40 20 MG TABLET 1 TAB(S) ORAL DAILY TAKING CYMBALTA 30 MG CAPSULE DELAYED RELEASE PARTICLES 1 CAPSULE ORALLY TWICE A DAY TAKING AMLODIPINE BESYLATE 10 MG TABLET 1 TABLET ORALLY ONCE A DAY TAKING OMEPRAZOLE 20 MG CAPSULE DELAYED RELEASE 1 CAPSULE ORALLY ONCE A DAY TAKING PREDNISONE 5 MG TABLET 1 TABLET ORALLY ONCE A DAY TAKING ISONIAZID 300 MG TABLET 1 TABLET ORALLY ONCE A DAY TAKING VITAMIN B-6 50 MG TABLET 1 TABLET ORALLY ONCE A DAY NOT-TAKING VIAGRA 100 MG TABLET 1 TABLET NEEDED ORALLY ONCE A DAY NOT-TAKING ACETAMINOPHEN 650 MG TABLET 1 TABLET NEEDED ORALLY EVERY 6 HRS NOT-TAKING STENDRA 200 MG TABLET 1 TAB(S) ORALLY TAKE 1 TAB ON FRI/FRI/FRIDAY NOT-TAKING TRAMADOL HCL 50 MG TABLET 1 TABLET NEEDED ORALLY EVERY 8 HRS DISCONTINUED SINGULAIR 10 MG TABLET 1 TABLET IN THE EVENING ORALLY ONCE A DAY DISCONTINUED ASPIRIN 81 MG TABLET CHEWABLE 1 TABLET ORALLY ONCE A DAY DISCONTINUED IBUPROFEN 200 MG #60 200 MG TABLETS 2 TABLES ORALLY NEEDED DISCONTINUED VIAGRA 100 MG TABLET 1 TABLET ORALLY DIRECTED- 1 HOUR BEFORE INTERCOURSE MEDICATION LIST REVIEWED AND RECONCILED WITH THE PATIENT PAST MEDICAL HISTORY ARTHRITIS HYPERTENSION HYPERCHOLESTEROLEMIA DM LT EYE CATARACT NEPHROLITHIASIS(SPONTANOUS PASSAGE) SYNCOPE PROSTATE CA, [id number], VANI 7 (3+4) - S/P PROSTATECTOMY ENVIRONMENTAL ALLERGIES ALLERGIES N.K.D.A. SURGICAL HISTORY B/L CATARACT SURGERY 2013 BACK INJECTIONS X 2 12/2012 TRUS 07/23/2013 ROBOTIC ASSISTED RADICAL PROSTATECTOMY AND BILATERAL PELVIC LYMPH NODE DIESSECTION 09/07/13 FAMILY HISTORY FATHER: 73 YRS, STROKE, DIAGNOSED WITH STROKE MOTHER: 74 YRS, CANCER IN HIP, CANCER SIBLINGS: ALIVE, 1 BROTHER OLDER AND 1 SISTER YOUNGER LIVING 4 BROTHER(S) , 3 SISTER(S) . 1 SON(S) , 3 DAUGHTER(S) - HEALTHY. NO KNOWN FAMILY HISTORY OF ANY UROLOGICALLY RELATED DISEASES\/CANCERS. SOCIAL HISTORY GENERAL: TOBACCO USE ARE YOU A:: FORMER SMOKER , HOW LONG HAS IT BEEN SINCE YOU LAST SMOKED?: > 10 YEARS. LATEX QUESTIONNAIRE LATEX ALLERGY : HAVE YOU EVER DEVELOPED ANY TYPE OF REACTION AFTER HANDLING LATEX PRODUCTS SUCH RUBBER GLOVES, CONDOMS, DIAPHRAGMS, BALLOONS, SOCKS, OR UNDERWEAR?NO LATEX ALLERGY : HAVE YOU EVER DEVELOPED ANY TYPE OF REACTION DURING OR AFTER DENTAL APPOINTMENT, VAGINAL/RECTAL EXAMINATION, SURGICAL PROCEDURE, OR ANY OTHER EXPOSURE?NO LATEX RISK : HAVE YOU EVER HAD ANY DIFFICULTY BREATHING OR HIVES AFTER EATING OR HANDLING ANY FRUITS, OR VEGETABLES; SUCH KIWI, BANANAS, STONE FRUITS, OR CHESTNUTSNO LATEX RISK : DO YOU HAVE A PREVIOUS PERSONAL HISTORY OF MORE THAN NINE SURGERIES, SPINA BIFIDA, OR REPEATED CATHERTIZATIONS? NO LATEX RISK : ARE YOU FREQUENTLY EXPOSED TO LATEX PRODUCTS IN YOUR OCCUPATION?NO DATE ASKED : 06/09/2018 ALCOHOL SCREENING POINTS: 0, INTERPRETATION: NEGATIVE. RECREATIONAL DRUG USE DENIES. CAFFEINE 2-5/DAY. SEXUAL HX HAD SEX IN THE LAST 12 MONTHS (VAGINAL, ORAL, OR ANAL)?: YES, WITH: WOMEN ONLY, USE PROTECTION?: NO, HAVE YOU EVER HAD AN STD?: NO. 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 LANGUAGE ANDORRAN. LEARNING BARRIERS / SPECIAL NEEDS BARRIERS TO LEARNING?NO HEARING IMPAIRED?NO VISION IMPAIRED?NO COGNITIVELY IMPAIRED?NO READINESS TO LEARN?YES LEARNING PREFERENCES?NO LEARNING CAPABILITIES PRESENT?YES EMOTIONAL BARRIERS?NO SPECIAL DEVICES?NO DOMESTIC VIOLENCE NONE. 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 EXERCISE: BIKES. MARITAL STATUS: . OTHERS AT HOME: SIGNIFICANT OTHER/GIRLFRIEND. PAIN CLINIC PFS, CLERGY, PUBLIC HEALTH REFERRALS HAS THE PATIENT BEEN EDUCATED REGARDING HIS/HER PLAN OF CARE?YES HAS THE PATIENT BEEN EDUCATED REGARDING PAIN, THE RISK FOR PAIN, THE IMPORTANCE OF EFFECTIVE PAIN MANAGEMENT, AND THE PAIN ASSESSMENT PROCESS?YES ADVANCE DIRECTIVE ADVANCE DIRECTIVE DISCUSSED WITH PATIENT:YES PT DOES NOT HAVE HCP AND DECLINES INFO AT THIS TIME 06/09/18 BV REVIEWED WITH PT 06/09/18 1411 BV. HOSPITALIZATION/MAJOR DIAGNOSTIC PROCEDURE SYNCOPE CAH 03/14/13 PNEUMONIA 01/22-01/24/17 PNEUMONIA 06/2017 REVIEW OF SYSTEMS REVIEWED BY: PROVIDER: HARI LOWERY . CONSTITUTIONAL: ANY CHANGE IN YOUR MEDICAL CONDITION? NO . CHILLS NO . FEVER NO . INFECTION: DO YOU HAVE NEW INFECTIONS? NO . DO YOU HAVE HISTORY OF MRSA? NO . MUSCULOSKELETAL: ANY NEW PATTERNS OF PAIN OR NUMBNESS? NO . SYTEMIC LUPUS NO . GASTROENTEROLOGY: ANY NEW CHANGE IN BOWEL CONTROL? NO . BARRETTS ESOPHAGUS NO . CIRRHOSIS NO . HEPATITIS NO . LIVER FAILURE NO . ACID REFLUX NO . UNEXPLAINED WEIGHT LOSS NO . GENITOURINARY: ANY NEW CHANGE IN BLADDER CONTROL? NO . IS THERE A CHANCE YOU COULD BE ? NO . HEMATOLOGY/LYMPH: DO YOU TAKE ANY BLOOD THINNERS? (FOR EXAMPLE- COUMADIN, PLAVIX, AGGRENOX, PLATEL, PRADAXA, OR XARELTO) NO . WHEN WAS YOUR LAST DOSE? DATE: TIME: . LOW PLATELET COUNT NO . SICKLE CELL DISEASE NO . VON WILLIEBRANDS NO . FACTOR V LEIDEN NO . THALLASEMIA NO . ANEMIA NO . EASY BRUISING NO . NEUROLOGY: HAVE YOU FALLEN IN THE PAST 12 MONTHS? YES, SLIPPED ON ICE THIS PAST WINTER. DENIES ANY INJURIES OR ED VISIT . ANY NEW EXTREMITY NUMBNESS OR WEAKNESS? NO . HEAD INJURY NO . DEMENTIA NO . CEREBRAL PALSY NO . MULTIPLE SCLEROSIS NO . DIZZINESS NO . HEADACHE NO . STROKES NO . VERTIGO NO . CARDIOLOGY: DO YOU HAVE A PACEMAKER OR DEFIBRILLATOR? NO . ANGINA NO . HEART ATTACK NO . HEART SURGERY NO . CONGESTIVE HEART FAILURE/FLUID OVERLOAD NO . CHEST PAIN NO . HIGH BLOOD PRESSURE NO . IRREGULAR HEART BEAT NO . RESPIRATORY: HAVE YOU BEEN SICK IN THE PAST WEEK? NO . FEVER NO . FLU LIKE SYMPTOMS? NO . CPAP NO . BYPAP NO . ASTHMA NO . EMPHYSEMA NO . CHRONIC LUNG DISEASES NO . SHORTNESS OF BREATH ON EXERTION NO . COUGH NO . SNORING NO . INTEGUMENTARY: DO YOU HAVE ANY RASHES OR OPEN SORES? NO . ALLERGIC/IMMUNO: ARE YOU ALLERGIC TO IV DYE? NO . ANY NEW ALLERGIES? NO . PSYCHIATRIC: DO YOU HAVE THOUGHTS OF HURTING YOURSELF OR SOMEONE ELSE? NO . ARE YOU ABUSED, NEGLECTED, OR IN AN UNSAFE ENVIRONMENT? NO . ENDOCRINOLOGY: ARE YOU DIABETIC? YES, ON MEDICATION . THYROID DISORDER NO . OTHER: DO YOU NEED ANY PRESCRIPTIONS? NO . IF YES, PLEASE LIST: ____ . ANY NEW PROBLEMS WITH YOUR MEDICATIONS? NO . WHEN DID YOU LAST EAT? ____ . WHEN DID YOU LAST DRINK? ____ . WHAT DID YOU LAST DRINK? ____ . NAME OF PERSON DRIVING YOU HOME? ____ . DO YOU HAVE ANY OTHER QUESTIONS OR CONCERNS NO . VITAL SIGNS WT 250.8 LBS, HT 72 IN, BMI 34.01 INDEX, BP 163/77 MM HG, HR 69 /MIN, RR 18 /MIN, TEMP 97.6 F, OXYGEN SAT % 93%, NA INITIALS AW 1343, REVIEWED BY: BV. EXAMINATION GENERAL EXAMINATION: GENERAL APPEARANCE: AWAKE,ALERT ,PLEAASANT . PSYCH AFFECT NORMAL . NECK: TRACHEA MIDLINE. NO CERVICAL OR SUPRACLAVICULAR LYMPHADENOPATHY NOTED. LUNGS: LUNG ALVARADO ARE CLEAR TO AUSCULTATION BILATERALLY. GOOD MOVEMENT OF AIR . HEART: S1, S2 IN A REGULAR RATE AND RHYTHM. NO SIGNIFICANT MURMURS, RUBS OR GALLOPS NOTED . ABDOMEN: SOFT/NONTENDER. MUSCULOSKELETAL: MUSCLE STRENGTH TESTING 5/5 BILATERAL UPPER/LOWER EXTREMITIES. LUMBAR SACRAL SPINE PALPATION: +FOR PAIN OVER L/S SPINE. + FOR PAIN OVER L/S PARASPINALS. , TRIGGER POINTS:, ELICITED WITH PALPATION OVER LUMBAR PARAVERTEBRAL MUSCLES AND INTO THE SECRUM. RESTRICTION OF ROM IN THIS AREA DISCOMFORT WITH PALPATION OVER BILATERAL SIJ.. CERVICALPOSITIVE FOR DISCOMFORT WITH PALPATION OF CERVICAL SPINE. + FOR PAIN WITH PALPATION OF CERVICAL PARASPINALS. + FOR PAIN WITH PALPATION OF TRAPEZIUS BILAT. SKIN: NO RASH OR SKIN LESIONS. NEUROLOGIC EXAM: CN'S NORMAL TESTED , DTRS 1-2+ IN ALL 4 EXTREMITIES. DIAGNOSTIC TESTS REVIEWED MRI L/S SPINE- MRI C-SPINE-. ASSESSMENTS MYALGIA, OTHER SITE - M79.18 (PRIMARY) TREATMENT MYALGIA, OTHER SITE START GABAPENTIN CAPSULE, 100 MG, 1 CAPSULE, ORALLY, BID, 30 DAY(S), 60 CAPSULE, REFILLS 2 NOTES: TPI BILAT. LOW BACK,TRIGGER POINT INJECTION: YOUR EXPERIENCE MATERIAL WAS PRINTED,TRIGGER POINT INJECTION MATERIAL WAS PRINTED. PREVENTIVE MEDICINE PAIN CLINIC TEACHING: MEDICATIONS PT GIVEN WRITTEN AND VERBAL EDUCATION ON GABAPENTIN. PT VERBALIZES UNDERSTANDING OF ALL EDUCATION. KENNY BELLO 06/09/2018 3:13:50 PM > . PROCEDURE TEACHING PT GIVEN WRITTEN AND VERBAL EDUCATION ON TRIGGER POINT INJECTIONS AND WRITTEN AND VERBAL PRE-PROCEDURE INSTRUCTIONS. PT VERBALIZES UNDERSTANDING OF ALL EDUCATION AND INSTRUCTIONS. KENNY BELLO 06/09/2018 3:14:41 PM > . PROCEDURE CODES FA211 ESTABILISHED PATIENT [facility] CHARGE DISPOSITION & COMMUNICATION FOLLOW UP POST (REASON: TPI BILAT. LOW BACK) ELECTRONICALLY SIGNED BY BEVERLEY PUENTE ON 06/23/2018 AT 01:42 PM EDT DISCLAIMER : THIS IS A VISIT SUMMARY EXTRACTED FROM THE [employer] CHART. IT IS NOT A COPY OF THE [employer] PROGRESS NOTE. [place]
== END ==
LOC: M PAIN 13:30
PROVIDERS: ATTEND Nurse Practitioner Family
DX: M79.18 Myalgia, other site (principal); E11.9 Type 2 diabetes mellitus without complications; I10 Essential (primary) hypertension; E78.00 Pure hypercholesterolemia, unspecified; Z79.899 Other long term (current) drug therapy; Z85.46 Personal history of malignant neoplasm of prostate; Z87.891 Personal history of nicotine dependence

== ENCOUNTER → 2018-06-24 | Outpatient (CLI) | payer MEDICARE, MEDICAID ==
[~2018-06-24] MED LIST changes: +BUPIVACAINE HCL 0.25% 10 ML VIAL As Ordered ONE; +BUPIVACAINE HCL 0.25% 30 ML VIAL As Ordered ONE; +TRIAMCINOLONE ACETONIDE SUSP 40 MG/ML VIAL (J3301) As Ordered ONE; +diazePAM 5 MG TAB As Ordered ONE
--- NOTE | 2018-07-13 00:02 | ECWPNPC ---
PATIENT NAME: OWEN PHILLIPS : 1945 GENDER: MALE VISIT DATE: 06/24/2018 DISCHARGE DATE: 06/24/18 1404 VISIT LOCKED DATE TIME: PHYSICIAN: KEREN WHYTE MD RESOURCE: KEREN WHYTE MD REASON FOR APPOINTMENT 1. TPI HISTORY OF PRESENT ILLNESS HISTORY OF PRESENT ILLNESS: PAIN THE PATIENT DESCRIBES THE PAIN... FALL RISK SCREENING: SCREENING :NO FALLS REPORTED IN THE LAST YEAR CURRENT MEDICATIONS TAKING GEMFIBROZIL 600 MG TABLET 1 TABLET ORALLY DAILY, NOTES: 06/23/18 TAKING JANUVIA 100 MG TABLET 1 TABLET ORALLY ONCE A DAY, NOTES: 06/23/18 TAKING LISINOPRIL 20 MG TABLET 1 TABLET ORALLY ONCE A DAY, NOTES: 06/23/18 TAKING PRAVASTATIN 40 20 MG TABLET 1 TAB(S) ORAL DAILY, NOTES: 06/23/18 TAKING CYMBALTA 30 MG CAPSULE DELAYED RELEASE PARTICLES 1 CAPSULE ORALLY TWICE A DAY, NOTES: 06/23/18 TAKING AMLODIPINE BESYLATE 10 MG TABLET 1 TABLET ORALLY ONCE A DAY, NOTES: 06/23/18 TAKING OMEPRAZOLE 20 MG CAPSULE DELAYED RELEASE 1 CAPSULE ORALLY ONCE A DAY, NOTES: 06/24/18 TAKING PREDNISONE 5 MG TABLET 1 TABLET ORALLY ONCE A DAY, NOTES: 06/24/18 0800 TAKING VITAMIN B-6 50 MG TABLET 1 TABLET ORALLY ONCE A DAY, NOTES: 06/24/18 NOT-TAKING VIAGRA 100 MG TABLET 1 TABLET NEEDED ORALLY ONCE A DAY NOT-TAKING ACETAMINOPHEN 650 MG TABLET 1 TABLET NEEDED ORALLY EVERY 6 HRS NOT-TAKING STENDRA 200 MG TABLET 1 TAB(S) ORALLY TAKE 1 TAB ON FRI/FRI/FRIDAY NOT-TAKING TRAMADOL HCL 50 MG TABLET 1 TABLET NEEDED ORALLY EVERY 8 HRS DISCONTINUED ISONIAZID 300 MG TABLET 1 TABLET ORALLY ONCE A DAY DISCONTINUED GABAPENTIN 100 MG CAPSULE 1 CAPSULE ORALLY BID MEDICATION LIST REVIEWED AND RECONCILED WITH THE PATIENT PAST MEDICAL HISTORY ARTHRITIS HYPERTENSION HYPERCHOLESTEROLEMIA DM LT EYE CATARACT NEPHROLITHIASIS(SPONTANOUS PASSAGE) SYNCOPE PROSTATE CA, [id number], VANI 7 (3+4) - S/P PROSTATECTOMY ENVIRONMENTAL ALLERGIES PNEUMONIA ALLERGIES N.K.D.A. SURGICAL HISTORY B/L CATARACT SURGERY 2013 BACK INJECTIONS X 2 12/2012 TRUS 07/23/2013 ROBOTIC ASSISTED RADICAL PROSTATECTOMY AND BILATERAL PELVIC LYMPH NODE DIESSECTION 07/08/14 FAMILY HISTORY FATHER: 73 YRS, STROKE, DIAGNOSED WITH STROKE MOTHER: 74 YRS, CANCER IN HIP, CANCER SIBLINGS: ALIVE, 1 BROTHER OLDER AND 1 SISTER YOUNGER LIVING 4 BROTHER(S) , 3 SISTER(S) . 1 SON(S) , 3 DAUGHTER(S) - HEALTHY. NO KNOWN FAMILY HISTORY OF ANY UROLOGICALLY RELATED DISEASES\\\/CANCERS. SOCIAL HISTORY GENERAL: TOBACCO USE ARE YOU A:FORMER SMOKER HOW LONG HAS IT BEEN SINCE YOU LAST SMOKED?> 10 YEARS OTHERS AT HOME: SIGNIFICANT OTHER/GIRLFRIEND. 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 LANGUAGE UGANDAN. DOMESTIC VIOLENCE NONE. RECREATIONAL DRUG USE DENIES. EXERCISE: BIKES. LEARNING BARRIERS / SPECIAL NEEDS BARRIERS TO LEARNING?NO HEARING IMPAIRED?NO VISION IMPAIRED?NO COGNITIVELY IMPAIRED?NO READINESS TO LEARN?YES LEARNING PREFERENCES?NO LEARNING CAPABILITIES PRESENT?YES EMOTIONAL BARRIERS?NO SPECIAL DEVICES?NO PAIN CLINIC PFS, CLERGY, PUBLIC HEALTH REFERRALS HAS THE PATIENT BEEN EDUCATED REGARDING HIS/HER PLAN OF CARE?YES HAS THE PATIENT BEEN EDUCATED REGARDING PAIN, THE RISK FOR PAIN, THE IMPORTANCE OF EFFECTIVE PAIN MANAGEMENT, AND THE PAIN ASSESSMENT PROCESS?YES LATEX QUESTIONNAIRE LATEX ALLERGY : HAVE YOU EVER DEVELOPED ANY TYPE OF REACTION AFTER HANDLING LATEX PRODUCTS SUCH RUBBER GLOVES, CONDOMS, DIAPHRAGMS, BALLOONS, SOCKS, OR UNDERWEAR?NO LATEX ALLERGY : HAVE YOU EVER DEVELOPED ANY TYPE OF REACTION DURING OR AFTER DENTAL APPOINTMENT, VAGINAL/RECTAL EXAMINATION, SURGICAL PROCEDURE, OR ANY OTHER EXPOSURE?NO LATEX RISK : HAVE YOU EVER HAD ANY DIFFICULTY BREATHING OR HIVES AFTER EATING OR HANDLING ANY FRUITS, OR VEGETABLES; SUCH KIWI, BANANAS, STONE FRUITS, OR CHESTNUTSNO LATEX RISK : DO YOU HAVE A PREVIOUS PERSONAL HISTORY OF MORE THAN NINE SURGERIES, SPINA BIFIDA, OR REPEATED CATHERTIZATIONS? NO LATEX RISK : ARE YOU FREQUENTLY EXPOSED TO LATEX PRODUCTS IN YOUR OCCUPATION?NO DATE ASKED : 06/09/2018 CAFFEINE 2-5/DAY. ADVANCE DIRECTIVE ADVANCE DIRECTIVE DISCUSSED WITH PATIENT:YES PT DOES NOT HAVE HCP AND DECLINES INFO AT THIS TIME [facility]. MARITAL STATUS: . ALCOHOL SCREENING POINTS: 0, INTERPRETATION: NEGATIVE. 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 SEXUAL HX HAD SEX IN THE LAST 12 MONTHS (VAGINAL, ORAL, OR ANAL)?: YES, WITH: WOMEN ONLY, USE PROTECTION?: NO, HAVE YOU EVER HAD AN STD?: NO. REVIEWED WITH PT 06/09/18 1411 BV. HOSPITALIZATION/MAJOR DIAGNOSTIC PROCEDURE SYNCOPE CAH 03/14/13 PNEUMONIA 01/22-01/24/17 PNEUMONIA 06/2017 REVIEW OF SYSTEMS REVIEWED BY: PROVIDER: . CONSTITUTIONAL: ANY CHANGE IN YOUR MEDICAL CONDITION? NO . CHILLS NO . FEVER NO . INFECTION: DO YOU HAVE NEW INFECTIONS? NO . DO YOU HAVE HISTORY OF MRSA? NO . MUSCULOSKELETAL: ANY NEW PATTERNS OF PAIN OR NUMBNESS? YES, PAIN IS WORSE IN NECK AND LOW HECTOR PAIN . GASTROENTEROLOGY: ANY NEW CHANGE IN BOWEL CONTROL? NO . GENITOURINARY: ANY NEW CHANGE IN BLADDER CONTROL? YES, NO NEW CHANGE TO DRIBBLING . IS THERE A CHANCE YOU COULD BE ? NO . HEMATOLOGY/LYMPH: DO YOU TAKE ANY BLOOD THINNERS? (FOR EXAMPLE- COUMADIN, PLAVIX, AGGRENOX, PLATEL, PRADAXA, OR XARELTO) NO . WHEN WAS YOUR LAST DOSE? DATE: TIME: . NEUROLOGY: HAVE YOU FALLEN IN THE PAST 12 MONTHS? YES, FELL APRIL ON ICE, PT DENIES INJURIES . ANY NEW EXTREMITY NUMBNESS OR WEAKNESS? NO . CARDIOLOGY: DO YOU HAVE A PACEMAKER OR DEFIBRILLATOR? NO . RESPIRATORY: HAVE YOU BEEN SICK IN THE PAST WEEK? NO . FEVER NO . FLU LIKE SYMPTOMS? NO . COUGH NO . INTEGUMENTARY: DO YOU HAVE ANY RASHES OR OPEN SORES? NO . ALLERGIC/IMMUNO: ARE YOU ALLERGIC TO IV DYE? NO . ANY NEW ALLERGIES? NO . PSYCHIATRIC: DO YOU HAVE THOUGHTS OF HURTING YOURSELF OR SOMEONE ELSE? NO . ARE YOU ABUSED, NEGLECTED, OR IN AN UNSAFE ENVIRONMENT? NO . ENDOCRINOLOGY: ARE YOU DIABETIC? YES, FS 98 TODAY @ 0900 . OTHER: DO YOU NEED ANY PRESCRIPTIONS? NO . IF YES, PLEASE LIST: ____ . ANY NEW PROBLEMS WITH YOUR MEDICATIONS? NO . WHEN DID YOU LAST EAT? 06/23/18 . WHEN DID YOU LAST DRINK? 06/24/18 0800 . WHAT DID YOU LAST DRINK? WATER . NAME OF PERSON DRIVING YOU HOME? BINA . DO YOU HAVE ANY OTHER QUESTIONS OR CONCERNS NO . VITAL SIGNS WT 251.0 LBS, HT 72 IN, BMI 34.04 INDEX, BP 155/77 MM HG, HR 72 /MIN, RR 18 /MIN, TEMP 97.3 F, OXYGEN SAT % 94%, NA INITIALS SC 11:41, REVIEWED BY: ELENI. ASSESSMENTS MYALGIA, OTHER SITE - M79.18 (PRIMARY) PROCEDURES PN TRIGGER POINT INJECTION WITH STEROIDS PRE PROCEDURE DIAGNOSIS 1. MYALGIA 2. PAIN AT BILATERAL LOW BACK AREA POST PROCEDURE DIAGNOSIS 1. MYALGIA 2. PAIN AT BILATERAL LOW BACK AREA. PROCEDURE TRIGGER POINT INJECTION AT BILATERAL LOW BACK AREA. SURGEON DR. KEREN WHYTE SUPERVISOR LIME NONE ANESTHESIA LOCAL PRE PROCEDURE NOTE THE PATIENT HAS A HISTORY OF CHRONIC PAIN AT THE RIGHT AND LEFT LOW BACK AREA. I EVALUATED THE PATIENT AND REVIEWED THE CHART. THERE IS EVIDENCE OF BANDS OF TISSUE WITH RESTRICTION OF MOVEMENT AND PRESENCE OF TRIGGER POINT AT THE AFFECTED AREA. I WENT OVER THE RISKS, ALTERNATIVES, AND BENEFITS ASSOCIATED WITH THIS PROCEDURE. THE PATIENT WOULD LIKE TO PROCEED AND GIVE CONSENT TO PERFORMED THE PROCEDURE. THE PATIENT DENIES UNEXPLAINABLE WEIGHT LOSS, FEVER, CHILLS, OR NEW CHANGES IN URINARY OR BOWEL CONTROL DESCRIPTION OF PROCEDURE THE PATIENT WAS BROUGHT TO THE PROCEDURE ROOM AND PLACED IN THE SITTING POSITION. THE AREA WAS CLEANED WITH ALCOHOL. THE PROCEDURE WAS DONE USING ASEPTIC STERILE TECHNIQUE. I CHECKED LATERALITY AND THE LEVEL WHERE THE PROCEDURE WAS GOING TO BE PERFORMED WITH THE PATIENT AND THE SUPPORTING STAFF AT THE MOMENT OF THE TIME OUT IN THE PROCEDURE ROOM. USING A 25-GAUGE NEEDLE, TRIGGER POINTS WERE INJECTED AT THE RIGHT AND LEFT LOW BACK AREA WITH A TOTAL OF 40 ML OF BUPIVACAINE 0.25% AND KENALOG 40 MG. THERE WAS NO EVIDENCE OF BLOOD, PARESTHESIA OR CEREBROSPINAL FLUID DURING THE PROCEDURE. THE PATIENT WAS SENT TO THE RECOVERY ROOM. THE PATIENT WAS MOVING THE EXTREMITIES AND DOING WELL. THERE WAS NO COMPLICATION DURING THE PROCEDURE POST PROCEDURE NOTE THE PATIENT WILL BE SEEN IN A FOLLOW UP IN THE NEXT FEW WEEKS. INSTRUCTIONS WERE GIVEN, QUESTIONS WERE ANSWERED, AND THE PATIENT EXPRESSED UNDERSTANDING AND AGREES WITH THE PLAN. I, PETRA CORDOVA, DOCUMENTED THE ABOVE INFORMATION ACTING A SCRIBE FOR DR. WHYTE. I HAVE REVIEWED THE ABOVE DOCUMENT, WRITTEN BY PETRA THIBODEAUX AND I VERIFY THAT IT IS ACCURATE. PROCEDURE CODES 03343 INJ TRIGGER POINT / [facility] DISPOSITION & COMMUNICATION FOLLOW UP 3 WEEKS ELECTRONICALLY SIGNED BY KEREN WHYTE MD, MD ON 07/12/2018 AT 03:32 PM EDT DISCLAIMER : THIS IS A VISIT SUMMARY EXTRACTED FROM THE [employer] CHART. IT IS NOT A COPY OF THE [employer] PROGRESS NOTE. [facility]
== END ==
LOC: M PAIN 11:15
PROVIDERS: ATTEND Anesthesiology
DX: M79.18 Myalgia, other site (principal); M54.5 Low back pain; E11.9 Type 2 diabetes mellitus without complications; I10 Essential (primary) hypertension; E78.00 Pure hypercholesterolemia, unspecified; M19.90 Unspecified osteoarthritis, unspecified site; J30.2 Other seasonal allergic rhinitis; Z79.899 Other long term (current) drug therapy; Z85.46 Personal history of malignant neoplasm of prostate; Z87.891 Personal history of nicotine dependence
CPT/HCPCS: 20552; J3301

== ENCOUNTER → 2018-07-08 | Outpatient (CLI) | payer MEDICARE, MEDICAID ==
[~2018-07-08] MED LIST changes: -BUPIVACAINE HCL 0.25% 10 ML VIAL As Ordered ONE; -BUPIVACAINE HCL 0.25% 30 ML VIAL As Ordered ONE; -TRIAMCINOLONE ACETONIDE SUSP 40 MG/ML VIAL (J3301) As Ordered ONE; -diazePAM 5 MG TAB As Ordered ONE
[2018-07-08 17:19] LABS: ALT/SGPT 29 U/L (12-78); BILIRUBIN,TOTAL 0.5 MG/DL (0.2-1.0); BLOOD UREA NITROGEN 28 MG/DL (7-18); CALCIUM LEVEL 8.9 MG/DL (8.8-10.2); CARBON DIOXIDE LEVEL 29 MEQ/L (21-32); CHLORIDE LEVEL 109 MEQ/L (98-107); CHOLESTEROL LEVEL 178 MG/DL (<200); CHOLESTEROL RISK RATIO 4.139 (<5); CPK CREATINE PHOSPHOKINASE 126 U/L (39-308); CREATININE FOR GFR 1.08 MG/DL (0.70-1.30); GLOMERULAR FILTRATION RATE > 60.0 (>42); GLUCOSE, FASTING 98 MG/DL (70-100); HDL CHOLESTEROL 43 MG/DL (>40); LDL CHOLESTEROL 114 MG/DL (<100); NON-HDL-C 135 MG/DL; POTASSIUM SERUM 4.5 MEQ/L (3.5-5.1); SODIUM LEVEL 142 MEQ/L (136-145); TOTAL PROTEIN 7.3 GM/DL (6.4-8.2); TRIGLYCERIDES LEVEL 107 MG/DL (<150)
[2018-07-08 17:26] LABS: HEMATOCRIT 40.6 % (42.0-52.0); HEMOGLOBIN 13.2 g/dl (13.5-17.5); MEAN CORPUSCULAR HEMOGLOBIN 29.6 pg (27.0-33.0); MEAN CORPUSCULAR HGB CONC 32.5 g/dl (32.0-36.5); PLATELET COUNT, AUTOMATED 271 10^3/uL (150-450); RED BLOOD COUNT 4.46 10^6/uL (4.30-6.10); WHITE BLOOD COUNT 7.8 10^3/uL (4.0-10.0)
[2018-07-08 17:42] LABS: MAU/CREAT RATIO 39.5 MCG/MG (0.0-30.0)
[2018-07-08 17:49] LABS: HEMOGLOBIN A1c 6.4 %
== END ==
LOC: M SMT 13:07
PROVIDERS: ATTEND Nurse Practitioner Family
DX: I10 Essential (primary) hypertension (principal); E78.5 Hyperlipidemia, unspecified; E11.9 Type 2 diabetes mellitus without complications

== ENCOUNTER → 2018-07-15 | Outpatient (CLI) | payer MEDICARE, MEDICAID ==
--- NOTE | 2018-08-04 01:28 | ECWPNPC ---
PATIENT NAME: OWEN PHILLIPS : 1945 GENDER: MALE VISIT DATE: 07/15/2018 DISCHARGE DATE: 07/15/18 1558 VISIT LOCKED DATE TIME: PHYSICIAN: HARI VIGIL RESOURCE: HARI VIGIL REASON FOR APPOINTMENT 1. POST PROC HISTORY OF PRESENT ILLNESS HISTORY OF PRESENT ILLNESS: HERE FOR POST PROCEDURE F/U.HAD TPI LOW BACK ON 06/24/18.REPORTING SIGNIFICANT REDUCTION IN PAIN FOR APPROXIMATLEY 3 WEEKS THEN PAIN ABRUPTLY RETURNED.CURRENTLY TAKING GABAPENTIN 100MG BID THAT I STARTED AT INITIAL CONSULT.THIS IS NOT HELPING.PAIN IS LOCATED ACROSS LOW BACK WITH RADIATION INTO BILAT. LEGS.RATING PAIN VAS 8/10. PAIN THE PATIENT DESCRIBES THE PAIN... FALL RISK SCREENING: SCREENING :NO FALLS REPORTED IN THE LAST YEAR CURRENT MEDICATIONS TAKING GEMFIBROZIL 600 MG TABLET 1 TABLET ORALLY DAILY TAKING JANUVIA 100 MG TABLET 1 TABLET ORALLY ONCE A DAY TAKING LISINOPRIL 20 MG TABLET 1 TABLET ORALLY ONCE A DAY TAKING PRAVASTATIN 40 20 MG TABLET 1 TAB(S) ORAL DAILY TAKING CYMBALTA 30 MG CAPSULE DELAYED RELEASE PARTICLES 1 CAPSULE ORALLY TWICE A DAY TAKING AMLODIPINE BESYLATE 10 MG TABLET 1 TABLET ORALLY ONCE A DAY TAKING OMEPRAZOLE 20 MG CAPSULE DELAYED RELEASE 1 CAPSULE ORALLY ONCE A DAY TAKING VITAMIN B-6 50 MG TABLET 1 TABLET ORALLY ONCE A DAY TAKING GABAPENTIN 100 MG CAPSULE DIRECTED ORALLY BID NOT-TAKING VIAGRA 100 MG TABLET 1 TABLET NEEDED ORALLY ONCE A DAY NOT-TAKING ACETAMINOPHEN 650 MG TABLET 1 TABLET NEEDED ORALLY EVERY 6 HRS NOT-TAKING STENDRA 200 MG TABLET 1 TAB(S) ORALLY TAKE 1 TAB ON FRI/FRI/FRIDAY NOT-TAKING TRAMADOL HCL 50 MG TABLET 1 TABLET NEEDED ORALLY EVERY 8 HRS DISCONTINUED PREDNISONE 5 MG TABLET 1 TABLET ORALLY ONCE A DAY MEDICATION LIST REVIEWED AND RECONCILED WITH THE PATIENT PAST MEDICAL HISTORY ARTHRITIS HYPERTENSION HYPERCHOLESTEROLEMIA DM LT EYE CATARACT NEPHROLITHIASIS(SPONTANOUS PASSAGE) SYNCOPE PROSTATE CA, [id number], VANI 7 (3+4) - S/P PROSTATECTOMY ENVIRONMENTAL ALLERGIES PNEUMONIA ALLERGIES N.K.D.A. SURGICAL HISTORY B/L CATARACT SURGERY 2013 BACK INJECTIONS X 2 12/2012 TRUS 07/23/2013 ROBOTIC ASSISTED RADICAL PROSTATECTOMY AND BILATERAL PELVIC LYMPH NODE DIESSECTION 09/07/13 FAMILY HISTORY FATHER: 73 YRS, STROKE, DIAGNOSED WITH STROKE MOTHER: 74 YRS, CANCER IN HIP, CANCER SIBLINGS: ALIVE, 1 BROTHER OLDER AND 1 SISTER YOUNGER LIVING 4 BROTHER(S) , 3 SISTER(S) . 1 SON(S) , 3 DAUGHTER(S) - HEALTHY. NO KNOWN FAMILY HISTORY OF ANY UROLOGICALLY RELATED DISEASES\\\/CANCERS. SOCIAL HISTORY GENERAL: TOBACCO USE ARE YOU A:FORMER SMOKER HOW LONG HAS IT BEEN SINCE YOU LAST SMOKED?> 10 YEARS OTHERS AT HOME: SIGNIFICANT OTHER/GIRLFRIEND. 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 LANGUAGE L[place]GISH. DOMESTIC VIOLENCE NONE. RECREATIONAL DRUG USE DENIES. EXERCISE: BIKES. LEARNING BARRIERS / SPECIAL NEEDS BARRIERS TO LEARNING?NO HEARING IMPAIRED?NO VISION IMPAIRED?NO COGNITIVELY IMPAIRED?NO READINESS TO LEARN?YES LEARNING PREFERENCES?NO LEARNING CAPABILITIES PRESENT?YES EMOTIONAL BARRIERS?NO SPECIAL DEVICES?NO PAIN CLINIC PFS, CLERGY, PUBLIC HEALTH REFERRALS HAS THE PATIENT BEEN EDUCATED REGARDING HIS/HER PLAN OF CARE?YES HAS THE PATIENT BEEN EDUCATED REGARDING PAIN, THE RISK FOR PAIN, THE IMPORTANCE OF EFFECTIVE PAIN MANAGEMENT, AND THE PAIN ASSESSMENT PROCESS?YES LATEX QUESTIONNAIRE LATEX ALLERGY : HAVE YOU EVER DEVELOPED ANY TYPE OF REACTION AFTER HANDLING LATEX PRODUCTS SUCH RUBBER GLOVES, CONDOMS, DIAPHRAGMS, BALLOONS, SOCKS, OR UNDERWEAR?NO LATEX ALLERGY : HAVE YOU EVER DEVELOPED ANY TYPE OF REACTION DURING OR AFTER DENTAL APPOINTMENT, VAGINAL/RECTAL EXAMINATION, SURGICAL PROCEDURE, OR ANY OTHER EXPOSURE?NO LATEX RISK : HAVE YOU EVER HAD ANY DIFFICULTY BREATHING OR HIVES AFTER EATING OR HANDLING ANY FRUITS, OR VEGETABLES; SUCH KIWI, BANANAS, STONE FRUITS, OR CHESTNUTSNO LATEX RISK : DO YOU HAVE A PREVIOUS PERSONAL HISTORY OF MORE THAN NINE SURGERIES, SPINA BIFIDA, OR REPEATED CATHERTIZATIONS? NO LATEX RISK : ARE YOU FREQUENTLY EXPOSED TO LATEX PRODUCTS IN YOUR OCCUPATION?NO DATE ASKED : 06/09/2018 CAFFEINE 2-5/DAY. ADVANCE DIRECTIVE ADVANCE DIRECTIVE DISCUSSED WITH PATIENT:YES PT DOES NOT HAVE HCP AND DECLINES INFO AT THIS TIME [facility]. MARITAL STATUS: . ALCOHOL SCREENING POINTS: 0, INTERPRETATION: NEGATIVE. 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 SEXUAL HX HAD SEX IN THE LAST 12 MONTHS (VAGINAL, ORAL, OR ANAL)?: YES, WITH: WOMEN ONLY, USE PROTECTION?: NO, HAVE YOU EVER HAD AN STD?: NO. REVIEWED WITH PT 06/09/18 1411 BV. HOSPITALIZATION/MAJOR DIAGNOSTIC PROCEDURE SYNCOPE CAH 03/14/13 PNEUMONIA 01/22-01/24/17 PNEUMONIA 06/2017 REVIEW OF SYSTEMS REVIEWED BY: PROVIDER: HARI LOWERY . CONSTITUTIONAL: ANY CHANGE IN YOUR MEDICAL CONDITION? NO . CHILLS NO . FEVER NO . INFECTION: DO YOU HAVE NEW INFECTIONS? NO . DO YOU HAVE HISTORY OF MRSA? NO . MUSCULOSKELETAL: ANY NEW PATTERNS OF PAIN OR NUMBNESS? YES, PAIN HAS GOTTEN WORSE . GASTROENTEROLOGY: ANY NEW CHANGE IN BOWEL CONTROL? NO . GENITOURINARY: ANY NEW CHANGE IN BLADDER CONTROL? YES, PT C/O STRESS INCONTINENCE . IS THERE A CHANCE YOU COULD BE ? NO . HEMATOLOGY/LYMPH: DO YOU TAKE ANY BLOOD THINNERS? (FOR EXAMPLE- COUMADIN, PLAVIX, AGGRENOX, PLATEL, PRADAXA, OR XARELTO) NO . WHEN WAS YOUR LAST DOSE? DATE: TIME: . NEUROLOGY: HAVE YOU FALLEN IN THE PAST 12 MONTHS? NO . ANY NEW EXTREMITY NUMBNESS OR WEAKNESS? NO . CARDIOLOGY: DO YOU HAVE A PACEMAKER OR DEFIBRILLATOR? NO . RESPIRATORY: HAVE YOU BEEN SICK IN THE PAST WEEK? NO . FEVER NO . FLU LIKE SYMPTOMS? NO . COUGH NO . INTEGUMENTARY: DO YOU HAVE ANY RASHES OR OPEN SORES? NO . ALLERGIC/IMMUNO: ARE YOU ALLERGIC TO IV DYE? NO . ANY NEW ALLERGIES? NO . PSYCHIATRIC: DO YOU HAVE THOUGHTS OF HURTING YOURSELF OR SOMEONE ELSE? NO . ARE YOU ABUSED, NEGLECTED, OR IN AN UNSAFE ENVIRONMENT? NO . ENDOCRINOLOGY: ARE YOU DIABETIC? YES . OTHER: DO YOU NEED ANY PRESCRIPTIONS? NO . IF YES, PLEASE LIST: ____ . ANY NEW PROBLEMS WITH YOUR MEDICATIONS? NO . WHEN DID YOU LAST EAT? ____ . WHEN DID YOU LAST DRINK? ____ . WHAT DID YOU LAST DRINK? ____ . NAME OF PERSON DRIVING YOU HOME? ____ . DO YOU HAVE ANY OTHER QUESTIONS OR CONCERNS YES, PT STATES HE D/C PREDNISONE LAST WEEK FOR WEIGHT GAIN. PT STATES HE WAS PRESCRIBED THIS FOR RECURRING PNEUMONIA. PT STATES PCP IS NOT AWARE HE HAS D/C PREDNISONE. NEXT VISIT W PCP 08/2018. PT WOULD LIKE TO DISCUSS TAKING CELEBREX AND SOMETHING TO HELP SLOW PROGRESSIN OF ARTHRITIS . VITAL SIGNS WT 252 LBS, HT 72 IN, BMI 34.17 INDEX, BP 139/83 MM HG, HR 77 /MIN, RR 18 /MIN, TEMP 98.0 F, OXYGEN SAT % 94%, NA INITIALS SC 14:44. EXAMINATION GENERAL EXAMINATION: LUNGS: LUNG SOUNDS ARE CLEAR . HEART: HEART RATE REGULAR . MUSCULOSKELETAL:*, MUSCLE STRENGTH TESTING 5/5 BILATERAL LOWER EXTREMITIES., ,PALPATION: POSITIVE FOR PAIN OVER L/S SPINE. POSITIVE FOR PAIN OVER L/S PARSPINALS.SPECIFIC POINT TENDERNESS OVER BILAT L4/5-L5/S1 LUMBR FACETS WITH FACET LOADING . DIAGNOSTIC TESTS REVIEWEDMRI L/S SPINE-04/21/18. 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 EM. PROCEDURE CODES FA211 ESTABILISHED PATIENT [facility] CHARGE DISPOSITION & COMMUNICATION FOLLOW UP POST (REASON: BILAT L4/5-L5/S1 THERAPEUTIC LUMBAR BLOCK) ELECTRONICALLY SIGNED BY BEVERLEY PUENTE ON 08/03/2018 AT 08:30 AM EDT DISCLAIMER : THIS IS A VISIT SUMMARY EXTRACTED FROM THE [employer] CHART. IT IS NOT A COPY OF THE [employer] PROGRESS NOTE. CAIO
== END ==
LOC: M PAIN 14:15
PROVIDERS: ATTEND Nurse Practitioner Family
DX: M47.817 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lopathy, lumbosacral region (principal); G62.9 Polyneuropathy, unspecified; E11.9 Type 2 diabetes mellitus without complications; M19.90 Unspecified osteoarthritis, unspecified site; I10 Essential (primary) hypertension; E78.00 Pure hypercholesterolemia, unspecified; J30.89 Other allergic rhinitis; Z79.899 Other long term (current) drug therapy; Z87.891 Personal history of nicotine dependence

== ENCOUNTER 2018-08-26 14:03 | Outpatient (CLI) | payer MEDICAID, MEDICARE ==
[~2018-08-26] VITALS: Ht 182.9 cm; Wt 114.1 kg
[2018-08-26 14:22] VITALS: BP 150/72
[2018-08-26] MEDS ORDERED: MEPOLIZUMAB SC ONE (14:30)
[2018-08-26 15:20] VITALS: BP 134/67
== END 2018-08-26 15:20 | disposition home or self-care (01) ==
LOC: M INFU 14:03
PROVIDERS: ATTEND Internal Medicine Pulmonary Disease
DX: J47.1 Bronchiectasis with (acute) exacerbation (principal); Z79.84 Long term (current) use of oral hypoglycemic drugs; Z79.891 Long term (current) use of opiate analgesic; Z79.899 Other long term (current) drug therapy

== ENCOUNTER → 2018-08-27 | Outpatient (CLI) | payer MEDICARE, MEDICAID ==
[~2018-08-27] MED LIST changes: +BUPIVACAINE HCL 0.25% 30 ML VIAL As Ordered ONE; +ISOVUE-M 300 61% 15ML VIAL (Q9967) As Ordered ONE; +LIDOCAINE 1% SDV INJ 30 ML VIAL As Ordered ONE; -OMEP20CA3 PO; +OMEP20CA4 PO; +TRIAMCINOLONE ACETONIDE SUSP 40 MG/ML VIAL (J3301) As Ordered ONE; +diazePAM 5 MG TAB As Ordered ONE; +oxyCODONE 5MG TAB As Ordered ONE
--- NOTE | 2018-08-27 14:31 | REP ---
Partial lumbar spine series: Two views . History: Injection procedure for pain. 30 seconds of fluoroscopy time is reported. Findings: A sequence of two fluoroscopically obtained last image hold procedural spot radiographs of the lumbar spine document needle position and contrast injection associated with injection procedure. Electronically Signed by Donaldo Pringle MD 08/27/2018 02:22 P
--- NOTE | 2018-09-03 00:48 | ECWPNPC ---
PATIENT NAME: OWEN PHILLIPS : 1945 GENDER: MALE VISIT DATE: 08/27/2018 DISCHARGE DATE: 08/27/18 1145 VISIT LOCKED DATE TIME: PHYSICIAN: KEREN WHYTE MD RESOURCE: KEREN WHYTE MD REASON FOR APPOINTMENT 1. BILAT L4/5-L5/S1 THERAPEUTIC LUMBAR BLOCK HISTORY OF PRESENT ILLNESS HISTORY OF PRESENT ILLNESS: PAIN THE PATIENT DESCRIBES THE PAIN... FALL RISK SCREENING: SCREENING :NO FALLS REPORTED IN THE LAST YEAR CURRENT MEDICATIONS TAKING GEMFIBROZIL 600 MG TABLET 1 TABLET ORALLY DAILY, NOTES: 08/26/182199 TAKING JANUVIA 100 MG TABLET 1 TABLET ORALLY ONCE A DAY, NOTES: 08/25/182199 TAKING LISINOPRIL 20 MG TABLET 1 TABLET ORALLY ONCE A DAY, NOTES: 08/26/182199 TAKING PRAVASTATIN 40 20 MG TABLET 1 TAB(S) ORAL DAILY, NOTES: 08/26/182199 TAKING CYMBALTA 30 MG CAPSULE DELAYED RELEASE PARTICLES 1 CAPSULE ORALLY TWICE A DAY, NOTES: 08/26/182199 TAKING AMLODIPINE BESYLATE 10 MG TABLET 1 TABLET ORALLY ONCE A DAY, NOTES: 08/26/182199 TAKING OMEPRAZOLE 20 MG CAPSULE DELAYED RELEASE 1 CAPSULE ORALLY ONCE A DAY, NOTES: 08/26/182199 TAKING VITAMIN B-6 50 MG TABLET 1 TABLET ORALLY ONCE A DAY, NOTES: 08/26/182199 TAKING GABAPENTIN 100 MG CAPSULE DIRECTED ORALLY 2 CAP BID, NOTES: 08/26/182199 NOT-TAKING VIAGRA 100 MG TABLET 1 TABLET NEEDED ORALLY ONCE A DAY NOT-TAKING ACETAMINOPHEN 650 MG TABLET 1 TABLET NEEDED ORALLY EVERY 6 HRS NOT-TAKING STENDRA 200 MG TABLET 1 TAB(S) ORALLY TAKE 1 TAB ON FRI/FRI/FRIDAY NOT-TAKING TRAMADOL HCL 50 MG TABLET 1 TABLET NEEDED ORALLY EVERY 8 HRS MEDICATION LIST REVIEWED AND RECONCILED WITH THE PATIENT PAST MEDICAL HISTORY ARTHRITIS HYPERTENSION HYPERCHOLESTEROLEMIA DM LT EYE CATARACT NEPHROLITHIASIS(SPONTANOUS PASSAGE) SYNCOPE PROSTATE CA, [id number], VANI 7 (3+4) - S/P PROSTATECTOMY ENVIRONMENTAL ALLERGIES PNEUMONIA ALLERGIES N.K.D.A. SURGICAL HISTORY B/L CATARACT SURGERY 2013 BACK INJECTIONS X 2 12/2012 TRUS 07/23/2013 ROBOTIC ASSISTED RADICAL PROSTATECTOMY AND BILATERAL PELVIC LYMPH NODE DIESSECTION 09/07/13 FAMILY HISTORY FATHER: 73 YRS, STROKE, DIAGNOSED WITH STROKE MOTHER: 74 YRS, CANCER IN HIP, CANCER SIBLINGS: ALIVE, 1 BROTHER OLDER AND 1 SISTER YOUNGER LIVING 4 BROTHER(S) , 3 SISTER(S) . 1 SON(S) , 3 DAUGHTER(S) - HEALTHY. NO KNOWN FAMILY HISTORY OF ANY UROLOGICALLY RELATED DISEASES\\\/CANCERS. SOCIAL HISTORY GENERAL: TOBACCO USE ARE YOU A:FORMER SMOKER HOW LONG HAS IT BEEN SINCE YOU LAST SMOKED?> 10 YEARS OTHERS AT HOME: SIGNIFICANT OTHER/GIRLFRIEND. 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 LANGUAGE JAPANESE. DOMESTIC VIOLENCE NONE. RECREATIONAL DRUG USE DENIES. EXERCISE: BIKES. LEARNING BARRIERS / SPECIAL NEEDS BARRIERS TO LEARNING?NO HEARING IMPAIRED?NO VISION IMPAIRED?NO COGNITIVELY IMPAIRED?NO READINESS TO LEARN?YES LEARNING PREFERENCES?NO LEARNING CAPABILITIES PRESENT?YES EMOTIONAL BARRIERS?NO SPECIAL DEVICES?NO PAIN CLINIC PFS, CLERGY, PUBLIC HEALTH REFERRALS HAS THE PATIENT BEEN EDUCATED REGARDING HIS/HER PLAN OF CARE?YES HAS THE PATIENT BEEN EDUCATED REGARDING PAIN, THE RISK FOR PAIN, THE IMPORTANCE OF EFFECTIVE PAIN MANAGEMENT, AND THE PAIN ASSESSMENT PROCESS?YES LATEX QUESTIONNAIRE LATEX ALLERGY : HAVE YOU EVER DEVELOPED ANY TYPE OF REACTION AFTER HANDLING LATEX PRODUCTS SUCH RUBBER GLOVES, CONDOMS, DIAPHRAGMS, BALLOONS, SOCKS, OR UNDERWEAR?NO LATEX ALLERGY : HAVE YOU EVER DEVELOPED ANY TYPE OF REACTION DURING OR AFTER DENTAL APPOINTMENT, VAGINAL/RECTAL EXAMINATION, SURGICAL PROCEDURE, OR ANY OTHER EXPOSURE?NO LATEX RISK : HAVE YOU EVER HAD ANY DIFFICULTY BREATHING OR HIVES AFTER EATING OR HANDLING ANY FRUITS, OR VEGETABLES; SUCH KIWI, BANANAS, STONE FRUITS, OR CHESTNUTSNO LATEX RISK : DO YOU HAVE A PREVIOUS PERSONAL HISTORY OF MORE THAN NINE SURGERIES, SPINA BIFIDA, OR REPEATED CATHERTIZATIONS? NO LATEX RISK : ARE YOU FREQUENTLY EXPOSED TO LATEX PRODUCTS IN YOUR OCCUPATION?NO DATE ASKED : 06/09/2018 CAFFEINE 2-5/DAY. ADVANCE DIRECTIVE ADVANCE DIRECTIVE DISCUSSED WITH PATIENT:YES PT DOES NOT HAVE HCP AND DECLINES INFO AT THIS TIME 08/27/18 SCIENTOLOGIST UATSDIN. MARITAL STATUS: . ALCOHOL SCREENING POINTS: 0, INTERPRETATION: NEGATIVE. 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 SEXUAL HX HAD SEX IN THE LAST 12 MONTHS (VAGINAL, ORAL, OR ANAL)?: YES, WITH: WOMEN ONLY, USE PROTECTION?: NO, HAVE YOU EVER HAD AN STD?: NO. REVIEWED WITH PT 06/09/18 1411 BVREVIEWED WITH PT 08/27/18 1023 BV. HOSPITALIZATION/MAJOR DIAGNOSTIC PROCEDURE SYNCOPE CAH 03/14/13 PNEUMONIA 01/22-01/24/17 PNEUMONIA 06/2017 REVIEW OF SYSTEMS REVIEWED BY: PROVIDER: . CONSTITUTIONAL: ANY CHANGE IN YOUR MEDICAL CONDITION? NO . CHILLS NO . FEVER NO . INFECTION: DO YOU HAVE NEW INFECTIONS? NO . DO YOU HAVE HISTORY OF MRSA? NO . MUSCULOSKELETAL: ANY NEW PATTERNS OF PAIN OR NUMBNESS? NO . GASTROENTEROLOGY: ANY NEW CHANGE IN BOWEL CONTROL? NO . GENITOURINARY: ANY NEW CHANGE IN BLADDER CONTROL? NO . IS THERE A CHANCE YOU COULD BE ? NO . HEMATOLOGY/LYMPH: DO YOU TAKE ANY BLOOD THINNERS? (FOR EXAMPLE- COUMADIN, PLAVIX, AGGRENOX, PLATEL, PRADAXA, OR XARELTO) NO . WHEN WAS YOUR LAST DOSE? DATE: TIME: . NEUROLOGY: HAVE YOU FALLEN IN THE PAST 12 MONTHS? NO . ANY NEW EXTREMITY NUMBNESS OR WEAKNESS? NO . CARDIOLOGY: DO YOU HAVE A PACEMAKER OR DEFIBRILLATOR? NO . RESPIRATORY: HAVE YOU BEEN SICK IN THE PAST WEEK? NO . FEVER NO . FLU LIKE SYMPTOMS? NO . COUGH NO . INTEGUMENTARY: DO YOU HAVE ANY RASHES OR OPEN SORES? NO . ALLERGIC/IMMUNO: ARE YOU ALLERGIC TO IV DYE? NO . ANY NEW ALLERGIES? NO . PSYCHIATRIC: DO YOU HAVE THOUGHTS OF HURTING YOURSELF OR SOMEONE ELSE? NO . ARE YOU ABUSED, NEGLECTED, OR IN AN UNSAFE ENVIRONMENT? NO . ENDOCRINOLOGY: ARE YOU DIABETIC? YES . OTHER: DO YOU NEED ANY PRESCRIPTIONS? NO . IF YES, PLEASE LIST: ____ . ANY NEW PROBLEMS WITH YOUR MEDICATIONS? NO . WHEN DID YOU LAST EAT? 08/26/18 2300 . WHEN DID YOU LAST DRINK? 08/26/18 2300 . WHAT DID YOU LAST DRINK? WATER . NAME OF PERSON DRIVING YOU HOME? BINA MAX . DO YOU HAVE ANY OTHER QUESTIONS OR CONCERNS NO . VITAL SIGNS WT 248.2 LBS, HT 72 IN, BMI 33.66 INDEX, BP 156/74 MM HG, HR 79 /MIN, RR 18 /MIN, TEMP 96.2 F, OXYGEN SAT % 92%, REVIEWED BY: BV. ASSESSMENTS SPONDYLOSIS OF LUMBAR REGION WITHOUT MYELOPATHY OR RADICULOPATHY - M47.816 (PRIMARY) SPONDYLOSIS OF LUMBOSACRAL REGION WITHOUT MYELOPATHY OR RADICULOPATHY - M47.817 PROCEDURES PN LUMBAR FACET BLOCK THERAPEUTIC PRE PROCEDURE DIAGNOSIS LUMBAR SPONDYLOSIS, LUMBOSACRAL SPONDYLOSIS POST PROCEDURE DIAGNOSIS LUMBAR SPONDYLOSIS, LUMBOSACRAL SPONDYLOSIS PROCEDURE BILATERAL L4-L5 AND BILATERAL L5-S1 LUMBAR FACET THERAPEUTIC BLOCK SURGEON DR. KEREN WHYTE GALLERY OR MUSEUM TECHNICIAN NONE ANESTHESIA LOCAL PRE PROCEDURE NOTE THE PATIENT HAS A HISTORY OF CHRONIC LOW BACK PAIN. I EVALUATE THE PATIENT AND REVIEWED THE CHART. I WENT OVER THE RISKS, ALTERNATIVES, AND BENEFITS ASSOCIATED WITH THIS PROCEDURE. THE PATIENT WOULD LIKE TO PROCEED AND GIVE CONSENT TO PERFORMED THE PROCEDURE. THE PATIENT DENIES UNEXPLAINABLE WEIGHT LOSS, FEVER, CHILLS, OR NEW CHANGES IN URINARY OR BOWEL CONTROL DESCRIPTION OF PROCEDURE THE PATIENT WAS BROUGHT TO THE PROCEDURE ROOM AND PLACED IN THE PRONE POSITION. THE LUMBOSACRAL AREA WAS CLEANED WITH CHLORAPREP SOLUTION AND DRAPED ASEPTICALLY. THE PROCEDURE WAS DONE UNDER STERILE CONDITIONS. I CHECKED LATERALITY AND THE LEVEL WHERE THE PROCEDURE WAS GOING TO BE PERFORMED WITH THE PATIENT AND THE SUPPORTING STAFF AT THE MOMENT OF THE TIME OUT IN THE PROCEDURE ROOM. UNDER FLUOROSCOPIC GUIDANCE, THE TARGET POINT WAS SELECTED AT THE RIGHT AND LEFT L4-L5 AND RIGHT AND LEFT L5-S1 FACET JOINT. TARGET POINT WAS SELECTED AFTER LATERAL ROTATION AND TILT OF THE MAGNIFIER OF THE C-ARM. LIDOCAINE 0.5% WAS USED TO NUMB THE SKIN AND THE SUBCUTANEOUS TISSUE BELOW IT. SPINAL NEEDLES, 22-GAUGE, WERE ADVANCED UNDER FLUOROSCOPIC GUIDANCE AND FOLLOWING PATIENT FEEDBACK UNTIL THE TARGETS WERE TOUCHED. THE POSITION OF THE NEEDLES WAS VERIFIED WITH AP AND LATERAL VIEWS. AFTER PROPER POSITION OF THE NEEDLES WAS ACHIEVED, ISOVUE-M DYE 30% 0.1 ML WAS INJECTED SHOWING ADEQUATE SPREAD OF THE DYE. THEN A SOLUTION OF 1.9 ML OF BUPIVACAINE 0.125% OF KENALOG 10 MG WAS INJECTED AT EACH SITE. THERE WAS NO EVIDENCE OF BLOOD, PARESTHESIA OR CEREBROSPINAL FLUID DURING THE PROCEDURE. THE PATIENT WAS SENT TO THE RECOVERY ROOM. THE PATIENT WAS MOVING THE EXTREMITIES AND DOING WELL. THERE WAS NO COMPLICATION DURING THE PROCEDURE. FLUOROSCOPY TIME WAS 30 SECONDS POST PROCEDURE NOTE THE PATIENT WILL BE SEEN IN A FOLLOW UP IN THE NEXT FEW WEEKS. INSTRUCTIONS WERE GIVEN, QUESTIONS WERE ANSWERED, AND THE PATIENT EXPRESSED UNDERSTANDING AND AGREES WITH THE PLAN. IAUGUSTINE, DOCUMENTED THE ABOVE INFORMATION ACTING A SCRIBE FOR DR. WHYTE. I HAVE REVIEWED THE ABOVE DOCUMENT, WRITTEN BY AUGUSTINE BEAVERS SCRIBE AND I VERIFY THAT IT IS ACCURATE. DIAGNOSTIC IMAGING [facility] FACET BLOCK (PAIN)[id number] PROCEDURE CODES 6045F RADXPS IN END [id number] PXD [id number] INJ PARAVERT F JNT L/S 1 LEV, MODIFIERS: 50 [id number] INJ PARAVERT F JNT L/S 2 LEV, MODIFIERS: 50 DISPOSITION & COMMUNICATION FOLLOW UP 3 WEEKS ELECTRONICALLY SIGNED BY KEREN WHYTE MD, MD ON 09/02/2018 AT 01:20 PM EDT DISCLAIMER : THIS IS A VISIT SUMMARY EXTRACTED FROM THE [employer] CHART. IT IS NOT A COPY OF THE [employer] PROGRESS NOTE. MTDD
== END ==
LOC: M PAIN 09:30
PROVIDERS: ATTEND Anesthesiology
DX: M47.816 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lopathy, lumbar region (principal); M47.817 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lopathy, lumbosacral region; M19.90 Unspecified osteoarthritis, unspecified site; I10 Essential (primary) hypertension; E78.00 Pure hypercholesterolemia, unspecified; E11.9 Type 2 diabetes mellitus without complications; J30.9 Allergic rhinitis, unspecified; Z87.442 Personal history of urinary calculi; Z85.46 Personal history of malignant neoplasm of prostate; Z87.891 Personal history of nicotine dependence; Z98.41 Cataract extraction status, right eye; Z98.42 Cataract extraction status, left eye; Z79.84 Long term (current) use of oral hypoglycemic drugs; Z79.899 Other long term (current) drug therapy
CPT/HCPCS: 64493; 64494; J3301; Q9967

== ENCOUNTER 2018-09-23 14:00 | Outpatient (CLI) | payer MEDICAID, MEDICARE ==
[~2018-09-23] VITALS: Ht 182.9 cm; Wt 114.1 kg
[~2018-09-23 14:00] MED LIST changes: -BUPIVACAINE HCL 0.25% 30 ML VIAL As Ordered ONE; -ISOVUE-M 300 61% 15ML VIAL (Q9967) As Ordered ONE; -LIDOCAINE 1% SDV INJ 30 ML VIAL As Ordered ONE; -TRIAMCINOLONE ACETONIDE SUSP 40 MG/ML VIAL (J3301) As Ordered ONE; -diazePAM 5 MG TAB As Ordered ONE; -oxyCODONE 5MG TAB As Ordered ONE
[2018-09-23 14:26] VITALS: BP 159/77
[2018-09-23 15:00] VITALS: BP 161/82
[2018-09-23] MEDS ORDERED: MEPOLIZUMAB SC ONE ×2 (15:00)
== END 2018-09-23 15:10 | disposition home or self-care (01) ==
LOC: M INFU 14:00
PROVIDERS: ATTEND Internal Medicine Pulmonary Disease
DX: 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 [Churg-Strauss] (principal); J47.9 Bronchiectasis, uncomplicated; Z79.51 Long term (current) use of inhaled steroids; Z79.52 Long term (current) use of systemic steroids; Z79.899 Other long term (current) drug therapy

== ENCOUNTER → 2018-09-29 | Outpatient (CLI) | payer MEDICARE, MEDICAID ==
--- NOTE | 2018-10-01 01:33 | ECWPNPC ---
PATIENT NAME: OWEN PHILLIPS : 1945 GENDER: MALE VISIT DATE: 09/29/2018 DISCHARGE DATE: 09/29/18 1230 VISIT LOCKED DATE TIME: PHYSICIAN: VALERIE MADRID RESOURCE: VALERIE MADRID REASON FOR APPOINTMENT 1. POST PROC HISTORY OF PRESENT ILLNESS HISTORY OF PRESENT ILLNESS: PAIN THE PATIENT DESCRIBES THE PAIN... 73 YEAR OLD MALE IN FOR POST THERAPEUTIC FACET BLOCK. HE ADMITS THE PROCEDURE WORKED WELL FOR HIS LOWER BACK CURRENTLY REPORTING PAIN AT A 1/10 THERE. HOWEVER, HE DOES REPORT INCREASED PAIN IN HIS UPPER BACK RATING IT AT A 8/10 CURRENTLY. HE DESCRIBES THE PAIN ACHING. FALL RISK SCREENING: SCREENING :NO FALLS REPORTED IN THE LAST YEAR CURRENT MEDICATIONS TAKING NUCALA 100 MG/ML SOLUTION PREFILLED SYRINGE DIRECTED SUBCUTANEOUS MONTHLY TAKING GEMFIBROZIL 600 MG TABLET 1 TABLET ORALLY DAILY TAKING JANUVIA 100 MG TABLET 1 TABLET ORALLY ONCE A DAY TAKING LISINOPRIL 20 MG TABLET 1 TABLET ORALLY ONCE A DAY TAKING PRAVASTATIN 40 20 MG TABLET 1 TAB(S) ORAL DAILY TAKING AMLODIPINE BESYLATE 10 MG TABLET 1 TABLET ORALLY ONCE A DAY TAKING VITAMIN B-6 50 MG TABLET 1 TABLET ORALLY ONCE A DAY TAKING GABAPENTIN 100 MG CAPSULE DIRECTED ORALLY 2 CAP BID TAKING VIAGRA 100 MG TABLET 1 TABLET NEEDED ORALLY ONCE A DAY TAKING ACETAMINOPHEN 650 MG TABLET 1 TABLET NEEDED ORALLY EVERY 6 HRS NOT-TAKING CYMBALTA 30 MG CAPSULE DELAYED RELEASE PARTICLES 1 CAPSULE ORALLY TWICE A DAY NOT-TAKING OMEPRAZOLE 20 MG CAPSULE DELAYED RELEASE 1 CAPSULE ORALLY ONCE A DAY NOT-TAKING STENDRA 200 MG TABLET 1 TAB(S) ORALLY TAKE 1 TAB ON FRI/FRI/FRIDAY NOT-TAKING TRAMADOL HCL 50 MG TABLET 1 TABLET NEEDED ORALLY EVERY 8 HRS MEDICATION LIST REVIEWED AND RECONCILED WITH THE PATIENT PAST MEDICAL HISTORY ARTHRITIS HYPERTENSION HYPERCHOLESTEROLEMIA DM LT EYE CATARACT NEPHROLITHIASIS(SPONTANOUS PASSAGE) SYNCOPE PROSTATE CA, [id number], VANI 7 (3+4) - S/P PROSTATECTOMY ENVIRONMENTAL ALLERGIES PNEUMONIA ALLERGIES N.K.D.A. SURGICAL HISTORY B/L CATARACT SURGERY 2013 BACK INJECTIONS X 2 12/2012 TRUS 07/23/2013 ROBOTIC ASSISTED RADICAL PROSTATECTOMY AND BILATERAL PELVIC LYMPH NODE DIESSECTION 09/07/13 FAMILY HISTORY FATHER: 73 YRS, STROKE, DIAGNOSED WITH STROKE MOTHER: 74 YRS, CANCER IN HIP, CANCER SIBLINGS: ALIVE, 1 BROTHER OLDER AND 1 SISTER YOUNGER LIVING 4 BROTHER(S) , 3 SISTER(S) . 1 SON(S) , 3 DAUGHTER(S) - HEALTHY. NO KNOWN FAMILY HISTORY OF ANY UROLOGICALLY RELATED DISEASES\\\\\\/CANCERS. SOCIAL HISTORY GENERAL: TOBACCO USE ARE YOU A:FORMER SMOKER HOW LONG HAS IT BEEN SINCE YOU LAST SMOKED?> 10 YEARS OTHERS AT HOME: SIGNIFICANT OTHER/GIRLFRIEND. 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 LANGUAGE CYPRIOT. DOMESTIC VIOLENCE NONE. RECREATIONAL DRUG USE DENIES. EXERCISE: BIKES. LEARNING BARRIERS / SPECIAL NEEDS BARRIERS TO LEARNING?NO HEARING IMPAIRED?NO VISION IMPAIRED?NO COGNITIVELY IMPAIRED?NO READINESS TO LEARN?YES LEARNING PREFERENCES?NO LEARNING CAPABILITIES PRESENT?YES EMOTIONAL BARRIERS?NO SPECIAL DEVICES?NO PAIN CLINIC PFS, CLERGY, PUBLIC HEALTH REFERRALS HAS THE PATIENT BEEN EDUCATED REGARDING HIS/HER PLAN OF CARE?YES HAS THE PATIENT BEEN EDUCATED REGARDING PAIN, THE RISK FOR PAIN, THE IMPORTANCE OF EFFECTIVE PAIN MANAGEMENT, AND THE PAIN ASSESSMENT PROCESS?YES LATEX QUESTIONNAIRE LATEX ALLERGY : HAVE YOU EVER DEVELOPED ANY TYPE OF REACTION AFTER HANDLING LATEX PRODUCTS SUCH RUBBER GLOVES, CONDOMS, DIAPHRAGMS, BALLOONS, SOCKS, OR UNDERWEAR?NO LATEX ALLERGY : HAVE YOU EVER DEVELOPED ANY TYPE OF REACTION DURING OR AFTER DENTAL APPOINTMENT, VAGINAL/RECTAL EXAMINATION, SURGICAL PROCEDURE, OR ANY OTHER EXPOSURE?NO LATEX RISK : HAVE YOU EVER HAD ANY DIFFICULTY BREATHING OR HIVES AFTER EATING OR HANDLING ANY FRUITS, OR VEGETABLES; SUCH KIWI, BANANAS, STONE FRUITS, OR CHESTNUTSNO LATEX RISK : DO YOU HAVE A PREVIOUS PERSONAL HISTORY OF MORE THAN NINE SURGERIES, SPINA BIFIDA, OR REPEATED CATHERIZATIONS? NO LATEX RISK : ARE YOU FREQUENTLY EXPOSED TO LATEX PRODUCTS IN YOUR OCCUPATION?NO DATE ASKED : 06/09/2018 CAFFEINE 2-5/DAY. ADVANCE DIRECTIVE ADVANCE DIRECTIVE DISCUSSED WITH PATIENT:YES PT DOES NOT HAVE HCP AND DECLINES INFO AT THIS TIME 08/27/18 YARSANISM ZOROASTRIANISM. MARITAL STATUS: . ALCOHOL SCREENING POINTS: 0, INTERPRETATION: NEGATIVE. 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 SEXUAL HX HAD SEX IN THE LAST 12 MONTHS (VAGINAL, ORAL, OR ANAL)?: YES, WITH: WOMEN ONLY, USE PROTECTION?: NO, HAVE YOU EVER HAD AN STD?: NO. REVIEWED WITH PT 06/09/18 1411 BVREVIEWED WITH PT 08/27/18 1023 BVREVIEWED WITH PT 09/29/18 1149 NLJ. HOSPITALIZATION/MAJOR DIAGNOSTIC PROCEDURE SYNCOPE CAH 03/14/13 PNEUMONIA 01/22-01/24/17 PNEUMONIA 06/2017 REVIEW OF SYSTEMS REVIEWED BY: PROVIDER: SHIRA DE LA ROSA . CONSTITUTIONAL: ANY CHANGE IN YOUR MEDICAL CONDITION? NO . CHILLS NO . FEVER NO . INFECTION: DO YOU HAVE NEW INFECTIONS? NO . DO YOU HAVE HISTORY OF MRSA? NO . MUSCULOSKELETAL: ANY NEW PATTERNS OF PAIN OR NUMBNESS? YES- UPPER BACK PAIN, STATES THAT FACET BLOCK WORKED "VERY WELL" IN LOWER BACK, NOW HAS INCREASED PAIN IN UPPER BACK . GASTROENTEROLOGY: ANY NEW CHANGE IN BOWEL CONTROL? NO . GENITOURINARY: ANY NEW CHANGE IN BLADDER CONTROL? NO . IS THERE A CHANCE YOU COULD BE ? NO . HEMATOLOGY/LYMPH: DO YOU TAKE ANY BLOOD THINNERS? (FOR EXAMPLE- COUMADIN, PLAVIX, AGGRENOX, PLATEL, PRADAXA, OR XARELTO) NO . WHEN WAS YOUR LAST DOSE? DATE: TIME: . NEUROLOGY: HAVE YOU FALLEN IN THE PAST 12 MONTHS? NO . ANY NEW EXTREMITY NUMBNESS OR WEAKNESS? YES- INCREASED PAIN AND TINGLING IN UPPER BACK DOWN TO BILTERAL HANDS AND FINGERS . CARDIOLOGY: DO YOU HAVE A PACEMAKER OR DEFIBRILLATOR? NO . RESPIRATORY: HAVE YOU BEEN SICK IN THE PAST WEEK? NO . FEVER NO . FLU LIKE SYMPTOMS? NO . COUGH NO . INTEGUMENTARY: DO YOU HAVE ANY RASHES OR OPEN SORES? NO . ALLERGIC/IMMUNO: ARE YOU ALLERGIC TO IV DYE? NO . ANY NEW ALLERGIES? NO . PSYCHIATRIC: DO YOU HAVE THOUGHTS OF HURTING YOURSELF OR SOMEONE ELSE? NO . ARE YOU ABUSED, NEGLECTED, OR IN AN UNSAFE ENVIRONMENT? NO . ENDOCRINOLOGY: ARE YOU DIABETIC? NO . OTHER: DO YOU NEED ANY PRESCRIPTIONS? YES- THINKS HE NEEDS GABAPENTIN REFILLED, OR WOULD LIKE A DIFFERENT PAIN MED . IF YES, PLEASE LIST: ____ . ANY NEW PROBLEMS WITH YOUR MEDICATIONS? NO . WHEN DID YOU LAST EAT? ____ . WHEN DID YOU LAST DRINK? ____ . WHAT DID YOU LAST DRINK? ____ . NAME OF PERSON DRIVING YOU HOME? ____ . DO YOU HAVE ANY OTHER QUESTIONS OR CONCERNS YES-FEELS LIKE INJECTIONS IN LOWER BACK WORKED WELL AND IS INTERESTED IN GETTING THEM IN HIS UPPER BACK . VITAL SIGNS WT 244.2 LBS, HT 72 IN, BMI 33.12 INDEX, BP 155/74 MM HG, HR 87 /MIN, RR 18 /MIN, TEMP 98.2 F, OXYGEN SAT % 96%, SAFE IN ENV? (Y/N) YES, NA INITIALS SC 12:10, REVIEWED BY: MASSIEL. EXAMINATION GENERAL EXAMINATION: GENERALNO ACUTE DISTRESS, WELL NOURISHED AND HYDRATED. PSYCHAPPROPRIATE MOOD AND AFFECT . LUNGS:CLEAR TO AUSCULTATION BILATERALLY, NO WHEEZES, RHONCHI, RALES. HEART:NO MURMURS, REGULAR RATE AND RHYTHM. BACK:POINT TENDER OVER T5-T6, T6-T7, SURROUNDING SKIN SHOWS NO ERYTHEMA, ECCHYMOSIS, INCREASED WARMTH, AND/OR SKIN ERUPTIONS.. ASSESSMENTS LUMBOSACRAL SPONDYLOSIS WITHOUT MYELOPATHY - M47.817 (PRIMARY) TREATMENT LUMBOSACRAL SPONDYLOSIS WITHOUT MYELOPATHY CLINICAL NOTES: 73 YEAR OLD MALE IN FOR POST PROCEDURAL FOLLOW UP. GIVEN PRESENTING SYMPTOMS AND RESULTS OF PHYSICAL EXAMINATION RECOMMENDED THORACIC FACET BLOCK WITH POST PROCEDURAL FOLLOW UP. PATIENT HAS EXPRESSED UNDERSTANDING OF AND WAS IN AGREEMENT WITH TREATMENT PLAN. GIVEN TIME TO ASK QUESTIONS AND EXPRESS CONCERNS. OTHERS NOTES: BILATERAL FACET BLOCK T5-T6, T6-T7. PROCEDURE CODES FA211 ESTABILISHED PATIENT [facility] CHARGE DISPOSITION & COMMUNICATION FOLLOW UP POST PROCEDURE (REASON: BILATERAL FACET BLOCK T5-T6, T6-T7) ELECTRONICALLY SIGNED BY BEVERLEY KHOURY ON 09/30/2018 AT 11:28 AM EDT DISCLAIMER : THIS IS A VISIT SUMMARY EXTRACTED FROM THE [employer] CHART. IT IS NOT A COPY OF THE [employer] PROGRESS NOTE. CAIO
== END ==
LOC: M PAIN 11:30
PROVIDERS: ATTEND Family Medicine
DX: M47.817 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lopathy, lumbosacral region (principal); I10 Essential (primary) hypertension; E78.00 Pure hypercholesterolemia, unspecified; E11.9 Type 2 diabetes mellitus without complications; J30.9 Allergic rhinitis, unspecified; Z98.41 Cataract extraction status, right eye; Z98.42 Cataract extraction status, left eye; M19.90 Unspecified osteoarthritis, unspecified site; Z85.46 Personal history of malignant neoplasm of prostate; Z87.442 Personal history of urinary calculi; Z87.891 Personal history of nicotine dependence; Z79.84 Long term (current) use of oral hypoglycemic drugs; Z79.899 Other long term (current) drug therapy; Z90.79 Acquired absence of other genital organ(s)

== ENCOUNTER 2018-10-21 09:16 | Outpatient (CLI) | payer MEDICARE ==
[~2018-10-21] VITALS: Ht 182.9 cm; Wt 113.1 kg
[2018-10-21 09:20] VITALS: BP 149/92
[2018-10-21] MEDS: MEPOLIZUMAB SC ONE (10:17)
[2018-10-21 10:25] VITALS: BP 156/66
== END 2018-10-21 10:25 | disposition home or self-care (01) ==
LOC: M INFU 09:16
PROVIDERS: ATTEND Internal Medicine Pulmonary Disease
DX: 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 [Churg-Strauss] (principal); J47.9 Bronchiectasis, uncomplicated; Z79.891 Long term (current) use of opiate analgesic; Z79.899 Other long term (current) drug therapy

== ENCOUNTER → 2018-11-03 | Outpatient (REF) | payer MEDICARE, MEDICAID ==
[2018-11-03 20:38] LABS: APPEARANCE, URINE CLEAR (CLEAR); BACTERIA, URINE AUTO NEGATIVE (NEGATIVE); BILIRUBIN, URINE AUTO NEGATIVE (NEGATIVE); BLOOD, URINE BLOOD NEGATIVE (NEGATIVE); COLOR, URINE YELLOW (YELLOW); GLUCOSE, URINE (UA) AUTO NEGATIVE (NEGATIVE); KETONE, URINE AUTO TRACE mg/dL (NEGATIVE); LEUKOCYTE ESTERASE, URINE AUTO NEGATIVE (NEGATIVE); MUCUS, URINE SMALL (NEGATIVE); NITRITE, URINE AUTO NEGATIVE (NEGATIVE); PROTEIN, URINE AUTO NEGATIVE (NEGATIVE); RBC, URINE AUTO 2 /HPF (0-3); SPECIFIC GRAVITY URINE AUTO 1.023 (1.002-1.035); SQUAMOUS EPITHELIAL CELL UR AU 0 /HPF (0-6); UROBILINOGEN, URINE AUTO 0.2 mg/dL (0.0-2.0); WBC, URINE AUTO 1 /HPF (0-3)
== END ==
LOC: M SMT 19:16
PROVIDERS: ATTEND Nurse Practitioner Women's Health
DX: Z85.46 Personal history of malignant neoplasm of prostate (principal)

== ENCOUNTER → 2018-11-03 | Outpatient (CLI) | payer MEDICARE ==
[~2018-11-03] MED LIST changes: +OMEP1CAP73 PO; -OMEP20CA4 PO
== END ==
LOC: M SMT 14:59
PROVIDERS: ATTEND Nurse Practitioner Women's Health
DX: Z85.46 Personal history of malignant neoplasm of prostate (principal); R35.0 Frequency of micturition
CPT/HCPCS: 36415; 51798; 81001; 84153; 87086; G0463

== ENCOUNTER 2018-11-25 12:57 | Outpatient (CLI) | payer MEDICAID, MEDICARE ==
[~2018-11-25] VITALS: Ht 177.8 cm; Wt 114.1 kg
[~2018-11-25 12:57] MED LIST changes: -OMEP1CAP73 PO; +OMEP20CA4 PO
[2018-11-25 13:10] VITALS: BP 150/75
[2018-11-25] MEDS: MEPOLIZUMAB SC ONE (13:38)
[2018-11-25 14:15] VITALS: BP 167/77
== END 2018-11-25 14:15 | disposition home or self-care (01) ==
LOC: M INFU 12:57
PROVIDERS: ATTEND Internal Medicine Pulmonary Disease
DX: 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 [Churg-Strauss] (principal); Z79.899 Other long term (current) drug therapy

== ENCOUNTER → 2018-12-11 | Outpatient (CLI) | payer MEDICARE ==
--- NOTE | 2018-12-11 15:31 | REP ---
MRI thoracic spine without contrast: History: Spondylosis. Chronic back pain. Technique: Sagittal and axial T1 and T2-weighted scans are acquired in the usual fashion with and without fat saturation. Sequences include spin echo, turbo spin-echo, and STIR imaging sequences. MRI findings: Thoracic vertebral body heights are preserved. Alignment is normal. Cortical and medullary bone signal intensity are normal. There is discogenic spurring anteriorly at multiple thoracic levels. Thoracic cord is normal in coarse, caliber and signal intensity. There is mild diffuse disc bulging at the T12-L1 disc. There is mild facet hypertrophy and ligamentum flavum hypertrophy at this level. No cord compression is seen. No central canal stenosis is seen. Impression: Degenerative disc changes. No cord compressive lesion is seen. No thoracic disc protrusion. Electronically Signed by Donaldo Pringle MD 12/11/2018 03:44 P
== END ==
LOC: M RAD 13:42
PROVIDERS: ATTEND Family Medicine
DX: M51.34 Other intervertebral disc degeneration, thoracic region (principal); M51.25 Other intervertebral disc displacement, thoracolumbar region; G89.29 Other chronic pain

== ENCOUNTER 2018-12-23 15:42 | Outpatient (CLI) | payer MEDICARE ==
[~2018-12-23] VITALS: Ht 177.8 cm; Wt 113.9 kg
[2018-12-23 15:50] VITALS: BP 137/66
[2018-12-23 16:39] VITALS: BP 147/67
[2018-12-23] MEDS ORDERED: MEPOLIZUMAB SC ONE (17:00)
== END 2018-12-23 16:40 | disposition home or self-care (01) ==
LOC: M INFU 15:42
PROVIDERS: ATTEND Internal Medicine Pulmonary Disease
DX: 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 [Churg-Strauss] (principal); J47.9 Bronchiectasis, uncomplicated; Z79.891 Long term (current) use of opiate analgesic; Z79.899 Other long term (current) drug therapy; Z79.84 Long term (current) use of oral hypoglycemic drugs

== ENCOUNTER → 2019-01-06 | Outpatient (CLI) | payer MEDICARE ==
--- NOTE | 2019-01-06 11:08 | PFTRPT ---
Height: 70.00 Inches Weight: 215.00 Lbs BSA: 2.15 Diagnosis: M30.1 DATE OF STUDY: 01/06/2019 ORDERED BY: Dr. Duran Spirometry: Pre and post bronchodilator study of excellent technical quality. Some difficulty with requires maneuvers is noted. Forced vital capacity normal. FEV1 is in proportion. Obstructive index is, therefore, normal. Flow Volume Loop: Expiratory limb of the flow volume loop does suggest some difficulty with the required maneuvers, but parameters follow through the normal range. Lung Volumes: Total lung capacity normal. Residual volume is in proportion. Diffusing Capacity: Diffusing capacity is reduced but does correct for alveolar volume. Hemoglobin: No hemoglobin available for correction. Airway Mechanics: Airway resistance and conductance are normal. IMPRESSION: Decrease in the absolute diffusing capacity requires clinical correlation. MTDD
== END ==
LOC: M CARPUL 10:00
PROVIDERS: ATTEND Internal Medicine
DX: 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 [Churg-Strauss] (principal)

== ENCOUNTER → 2019-01-12 | Outpatient (CLI) | payer MEDICARE ==
[~2019-01-12] MED LIST changes: +BUPIVACAINE HCL 0.25% 30 ML VIAL As Ordered ONE; +ISOVUE-M 300 61% 15ML VIAL (Q9967) As Ordered ONE; +LIDOCAINE 1% SDV INJ 30 ML VIAL As Ordered ONE; +TRIAMCINOLONE ACETONIDE SUSP 40 MG/ML VIAL (J3301) As Ordered ONE; +diazePAM 5 MG TAB As Ordered ONE; +oxyCODONE 5MG TAB As Ordered ONE
--- NOTE | 2019-01-12 14:04 | REP ---
Partial lumbar spine series: To views . History: Injection procedure for pain. 29 seconds of fluoroscopy time is reported. Findings: A sequence of two fluoroscopically obtained last image hold procedural spot radiographs of the lumbar spine document needle position and contrast injection associated with injection procedure. Electronically Signed by Donaldo Pringle MD 01/12/2019 01:56 P
--- NOTE | 2019-01-12 14:17 | REP ---
Three views chest: 01/12/2019. Indication: Postprocedural assessment. Concern for pneumothorax. Comparison: 08/20/2017. Findings: There is no pneumothorax or significant pleural effusion. Prominent increased patchy interstitial markings are redemonstrated and essentially stable. No new air space consolidation is detected. Impression: No pneumothorax. Stable chronic changes as described. Electronically Signed by Devang Terry DO 01/12/2019 02:08 P
--- NOTE | 2019-01-20 02:01 | ECWPNPC ---
PATIENT NAME: OWEN PHILLIPS : 1945 GENDER: MALE VISIT DATE: 01/12/2019 DISCHARGE DATE: 01/12/19 143 VISIT LOCKED DATE TIME: PHYSICIAN: KEREN WHYTE MD RESOURCE: KEREN WHYTE MD REASON FOR APPOINTMENT 1. BILATERAL FACET BLOCK T4-T5, T5-T6, T6-T7 HISTORY OF PRESENT ILLNESS HISTORY OF PRESENT ILLNESS: PAIN THE PATIENT DESCRIBES THE PAIN... FALL RISK SCREENING: SCREENING :NO FALLS REPORTED IN THE LAST YEAR NEW PATIENT CONSULT: WHEN DID YOUR PAIN FIRST START? . BRIEFLY DESCRIBE HOW YOUR PAIN STARTED? . HOW DOES YOUR PAIN CHANGE WITH TIME? . DOES YOUR PAIN AWAKEN YOU FROM SLEEP? . HOW MANY HOURS OF SLEEP DO YOU NORMALLY GET? . ANY DIAGNOSTIC TESTING? . FACILITY WHERE TESTS WERE DONE? ____. PAIN TREATMENT TREATMENT YES CANCER HAVE YOU EVER HAD ANY TYPE OF CANCER?NO NO. PAIN SCREENING: PATIENT HAS A COMPLAINT OF ACUTE OR CHRONIC PAIN :YES FALL RISK SCREENING: SCREENING : NO FALLS IN THE PAST YEAR. MARINELLI INVENTORY: QUESTIONNAIRE ASSESSEDTBD SCORE VALUE CALCULATED TBD CURRENT MEDICATIONS TAKING NUCALA 100 MG/ML SOLUTION PREFILLED SYRINGE DIRECTED SUBCUTANEOUS MONTHLY, NOTES: 2 WEEKS AGO TAKING GEMFIBROZIL 600 MG TABLET 1 TABLET ORALLY DAILY, NOTES: 01-11-190 TAKING JANUVIA 100 MG TABLET 1 TABLET ORALLY ONCE A DAY, NOTES: 01-10-19 0800 TAKING LISINOPRIL 20 MG TABLET 1 TABLET ORALLY ONCE A DAY, NOTES: 01-11-19 09 TAKING PRAVASTATIN 40 20 MG TABLET 1 TAB(S) ORAL DAILY, NOTES: 01-11-192099 TAKING AMLODIPINE BESYLATE 10 MG TABLET 1 TABLET ORALLY ONCE A DAY, NOTES: 01-11-192099 TAKING VITAMIN B-6 50 MG TABLET 1 TABLET ORALLY ONCE A DAY, NOTES: 01-11-19 09 TAKING GABAPENTIN 100 MG CAPSULE DIRECTED ORALLY 2 CAP BID, NOTES: 01-11-19 2300 TAKING ACETAMINOPHEN 650 MG TABLET 1 TABLET NEEDED ORALLY EVERY 6 HRS, NOTES: NOT LATELY TAKING OXYBUTYNIN CHLORIDE ER 10 MG TABLET EXTENDED RELEASE 24 HOUR 1 TABLET ORALLY ONCE A DAY TAKING IBUPROFEN 600 MG TABLET 1 TABLET WITH FOOD OR MILK NEEDED ORALLY THREE TIMES A DAY, NOTES: 01-11-192299 TAKING VIAGRA 100 MG TABLET 1 TABLET NEEDED ORALLY ONCE A DAY, NOTES: NOT LATELY TAKING CYMBALTA 30 MG CAPSULE DELAYED RELEASE PARTICLES 1 CAPSULE ORALLY TWICE A DAY, NOTES: 01-11-192299 TAKING OMEPRAZOLE 20 MG CAPSULE DELAYED RELEASE 1 CAPSULE ORALLY ONCE A DAY, NOTES: 01-11-19 2100 TAKING TRAMADOL HCL 50 MG TABLET 1 TABLET NEEDED ORALLY EVERY 8 HRS, NOTES: 01-11-19 NOT-TAKING STENDRA 200 MG TABLET 1 TAB(S) ORALLY TAKE 1 TAB ON FRI/FRI/FRIDAY, NOTES: NOT LATELY MEDICATION LIST REVIEWED AND RECONCILED WITH THE PATIENT PAST MEDICAL HISTORY ARTHRITIS HYPERTENSION HYPERCHOLESTEROLEMIA DM LT EYE CATARACT NEPHROLITHIASIS(SPONTANOUS PASSAGE) SYNCOPE PROSTATE CA, [id number], VANI 7 (3+4) - S/P PROSTATECTOMY ENVIRONMENTAL ALLERGIES PNEUMONIA ALLERGIES N.K.D.A. SURGICAL HISTORY B/L CATARACT SURGERY 2012 BACK INJECTIONS X 2 12/2012 TRUS 07/23/2013 ROBOTIC ASSISTED RADICAL PROSTATECTOMY AND BILATERAL PELVIC LYMPH NODE DIESSECTION 09/07/13 FAMILY HISTORY FATHER: 73 YRS, STROKE, DIAGNOSED WITH UNSPECIFIED CEREBRAL ARTERY OCCLUSION WITH CEREBRAL INFARCTION MOTHER: 74 YRS, CANCER IN HIP, OTHER MALIGNANT NEOPLASM OF UNSPECIFIED SITE SIBLINGS: ALIVE, 1 BROTHER OLDER AND 1 SISTER YOUNGER LIVING 4 BROTHER(S) , 3 SISTER(S) . 1 SON(S) , 3 DAUGHTER(S) - HEALTHY. NO KNOWN FAMILY HISTORY OF ANY UROLOGICALLY RELATED DISEASES CANCERS. SOCIAL HISTORY GENERAL: PAIN CLINIC PFS, CLERGY, PUBLIC HEALTH REFERRALS PFS REFERRAL NEEDED?NO CLERGY REFERRAL NEEDED?NO PUBLIC HEALTH REFERRAL NEEDED?NO WAS THE PROVIDER NOTIFIED OF ANY PERTINENT INFO?NO PATIENT: ____. HOSPITALIZATION/MAJOR DIAGNOSTIC PROCEDURE SYNCOPE CAH 03/14/13 PNEUMONIA 01/22-01/24/17 PNEUMONIA 06/2017 REVIEW OF SYSTEMS REVIEWED BY: PROVIDER: , . CONSTITUTIONAL: ANY CHANGE IN YOUR MEDICAL CONDITION? NO, NO . CHILLS NO, NO . FEVER NO, NO . INFECTION: DO YOU HAVE NEW INFECTIONS? NO, NO . DO YOU HAVE HISTORY OF MRSA? NO, NO . MUSCULOSKELETAL: ANY NEW PATTERNS OF PAIN OR NUMBNESS? NO, NO . SYTEMIC LUPUS NO . GASTROENTEROLOGY: ANY NEW CHANGE IN BOWEL CONTROL? NO, NO . BARRETTS ESOPHAGUS NO . CIRRHOSIS NO . HEPATITIS NO . LIVER FAILURE NO . ACID REFLUX NO . UNEXPLAINED WEIGHT LOSS NO . GENITOURINARY: ANY NEW CHANGE IN BLADDER CONTROL? NO, NO . IS THERE A CHANCE YOU COULD BE ? NO, NO . HEMATOLOGY/LYMPH: DO YOU TAKE ANY BLOOD THINNERS? (FOR EXAMPLE- COUMADIN, PLAVIX, AGGRENOX, PLATEL, PRADAXA, OR XARELTO) NO, NO . WHEN WAS YOUR LAST DOSE? DATE: TIME: , DATE: TIME: . LOW PLATELET COUNT NO . SICKLE CELL DISEASE NO . VON WILLIEBRANDS NO . FACTOR V LEIDEN NO . THALLASEMIA NO . ANEMIA NO . EASY BRUISING NO . NEUROLOGY: HAVE YOU FALLEN IN THE PAST 12 MONTHS? NO, NO . ANY NEW EXTREMITY NUMBNESS OR WEAKNESS? NO, NO . HEAD INJURY NO . DEMENTIA NO . CEREBRAL PALSY NO . MULTIPLE SCLEROSIS NO . DIZZINESS NO . HEADACHE NO . STROKES NO . VERTIGO NO . CARDIOLOGY: DO YOU HAVE A PACEMAKER OR DEFIBRILLATOR? NO, NO . ANGINA NO . HEART ATTACK NO . HEART SURGERY NO . CONGESTIVE HEART FAILURE/FLUID OVERLOAD NO . CHEST PAIN NO . HIGH BLOOD PRESSURE NO . IRREGULAR HEART BEAT NO . RESPIRATORY: HAVE YOU BEEN SICK IN THE PAST WEEK? NO, NO . FEVER NO, NO . FLU LIKE SYMPTOMS? NO, NO . CPAP NO . BYPAP NO . ASTHMA NO . EMPHYSEMA NO . CHRONIC LUNG DISEASES NO . SHORTNESS OF BREATH ON EXERTION NO . DO YOU USE ANY TYPE OF TOBACCO (SMOKE, SMOKELESS, CHEW)? NO . COUGH NO, NO . SNORING NO . INTEGUMENTARY: DO YOU HAVE ANY RASHES OR OPEN SORES? NO, NO . ALLERGIC/IMMUNO: ARE YOU ALLERGIC TO IV DYE? NO, NO . ANY NEW ALLERGIES? NO, NO . PSYCHIATRIC: DO YOU HAVE THOUGHTS OF HURTING YOURSELF OR SOMEONE ELSE? NO, NO . ARE YOU ABUSED, NEGLECTED, OR IN AN UNSAFE ENVIRONMENT? NO, NO . ENDOCRINOLOGY: ARE YOU DIABETIC? YES FS THIS AM 98 . THYROID DISORDER NO . OTHER: DO YOU NEED ANY PRESCRIPTIONS? NO, NO . IF YES, PLEASE LIST: ____, ____ . ANY NEW PROBLEMS WITH YOUR MEDICATIONS? NO, NO . WHEN DID YOU LAST EAT? 01-11-191929 . WHEN DID YOU LAST DRINK? 01-11-19 6660 . WHAT DID YOU LAST DRINK? ____, ____WATER . NAME OF PERSON DRIVING YOU HOME? RUCHI . VITAL SIGNS WT 255.4 LBS, HT 72 IN, BMI 34.63 INDEX, BP 146/77 MM HG, HR 87 /MIN, RR 18 /MIN, TEMP 97.4 F, OXYGEN SAT % 95%, NA INITIALS SC 10:45, REVIEWED BY: KG. ASSESSMENTS SPONDYLOSIS WITHOUT MYELOPATHY OR RADICULOPATHY, THORACIC REGION - M47.814 (PRIMARY) PROCEDURES PN THORACIC FACET BLOCK THERAPEUTIC PRE PROCEDURE DIAGNOSIS THORACIC SPONDYLOSIS, THORACIC FACET ARTHROPATHY POST PROCEDURE DIAGNOSIS THORACIC SPONDYLOSIS, THORACIC FACET ARTHROPATHY PROCEDURE BILATERAL T4-T5, T5-T6, AND T6-T7 THORACIC THERAPEUTIC FACET BLOCK SURGEON DR. KEREN WHYTE INSTALLMENT DEALER NONE ANESTHESIA LOCAL PRE PROCEDURE NOTE THE PATIENT WITH HISTORY OF CHRONIC THORACIC PAIN. I EVALUATED THE PATIENT AND REVIEWED THE CHART. I WENT OVER THE RISKS, ALTERNATIVES, AND BENEFITS ASSOCIATED WITH THIS PROCEDURE. THE PATIENT WOULD LIKE TO PROCEED AND GAVE CONSENT TO PERFORM THE PROCEDURE. THE PATIENT DENIES UNEXPLAINABLE WEIGHT LOSS, FEVER, CHILLS, OR NEW CHANGES IN URINARY OR BOWEL CONTROL. DESCRIPTION OF PROCEDURE THE PATIENT WAS BROUGHT TO THE PROCEDURE ROOM AND PLACED IN THE PRONE POSITION. THE THORACIC AREA WAS CLEANED WITH CHLORAPREP SOLUTION AND DRAPED ASEPTICALLY. THE PROCEDURE WAS DONE UNDER STERILE CONDITIONS. I CHECKED LATERALITY AND THE LEVEL WHERE THE PROCEDURE WAS GOING TO BE PERFORMED WITH THE PATIENT AND THE SUPPORTING STAFF AT THE MOMENT OF THE TIME OUT IN THE PROCEDURE ROOM. UNDER FLUOROSCOPIC GUIDANCE, THE TARGET POINT WAS SELECTED AT THE RIGHT AND LEFT T4-T5, RIGHT AND LEFT T5-T6, AND RIGHT AND LEFT T6-T7 THORACIC FACETS. TARGET POINT WAS SELECTED AFTER LATERAL ROTATION AND TILT OF THE MAGNIFIER OF THE C-ARM. LIDOCAINE 0.5% WAS USED TO NUMB THE SKIN AND THE SUBCUTANEOUS TISSUE BELOW IT. SPINAL NEEDLES, 22-GAUGE, WERE ADVANCED UNDER FLUOROSCOPIC GUIDANCE AND FOLLOWING PATIENT FEEDBACK UNTIL THE TARGETS WERE TOUCHED. THE POSITION OF THE NEEDLES WAS VERIFIED WITH MULTIPLE X-RAY VIEWS. AFTER PROPER POSITION OF THE NEEDLES WAS ACHIEVED, ISOVUE-M DYE 30% 0.1 ML WAS INJECTED SHOWING ADEQUATE SPREAD OF THE DYE. THEN A SOLUTION OF 0.9 ML OF BUPIVACAINE 0.125% OF KENALOG 10 MG WAS INJECTED AT EACH SITE. THERE WAS NO EVIDENCE OF BLOOD, PARESTHESIA OR CEREBROSPINAL FLUID DURING THE PROCEDURE. THE PATIENT WAS SENT TO THE RECOVERY ROOM. THE PATIENT WAS MOVING THE EXTREMITIES AND DOING WELL. THERE WAS NO COMPLICATION DURING THE PROCEDURE. FLUOROSCOPY TIME WAS 29 SECONDS POST PROCEDURE NOTE THE PATIENT WILL BE SEEN IN A FOLLOW UP IN THE NEXT FEW WEEKS. INSTRUCTIONS WERE GIVEN, QUESTIONS WERE ANSWERED, AND THE PATIENT EXPRESSED UNDERSTANDING AND AGREED WITH THE PLAN. I, PETRA CORDOVA, DOCUMENTED THE ABOVE INFORMATION ACTING A SCRIBE FOR DR. WHYTE. I HAVE REVIEWED THE ABOVE DOCUMENT, WRITTEN BY PETRA CORDOVA SCRIBPhyllis AND I VERIFY THAT IT IS ACCURATE. DIAGNOSTIC IMAGING [facility] FACET BLOCK (PAIN)[id number] PROCEDURE CODES 37943 INJ PARAVERT F JNT L/S 1 LEV, MODIFIERS: 50 [id number] INJ PARAVERT F JNT L/S 2 LEV, MODIFIERS: 50 [id number] INJ PARAVERT F JNT L/S 3 LEV, MODIFIERS: 50 [id number] RADXPS IN END [id number] PXD DISPOSITION & COMMUNICATION FOLLOW UP 3 WEEKS ELECTRONICALLY SIGNED BY KEREN WHYTE MD, MD ON 01/19/2019 AT 03:16 PM EST DISCLAIMER : THIS IS A VISIT SUMMARY EXTRACTED FROM THE [employer] CHART. IT IS NOT A COPY OF THE [employer] PROGRESS NOTE. MTDD
== END ==
LOC: M PAIN 10:45
PROVIDERS: ATTEND Anesthesiology
DX: M47.814 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lopathy, thoracic region (principal); I10 Essential (primary) hypertension; E78.00 Pure hypercholesterolemia, unspecified; E11.9 Type 2 diabetes mellitus without complications; Z85.46 Personal history of malignant neoplasm of prostate; Z79.891 Long term (current) use of opiate analgesic; Z79.899 Other long term (current) drug therapy; Z98.41 Cataract extraction status, right eye; Z98.42 Cataract extraction status, left eye
CPT/HCPCS: 64490; 64491; 64492; 71046; J3301; Q9967

== ENCOUNTER 2019-01-27 14:08 | Outpatient (CLI) | payer MEDICAID, MEDICARE ==
[~2019-01-27] VITALS: Ht 182.9 cm; Wt 114.1 kg
[~2019-01-27 14:08] MED LIST changes: -BUPIVACAINE HCL 0.25% 30 ML VIAL As Ordered ONE; -ISOVUE-M 300 61% 15ML VIAL (Q9967) As Ordered ONE; -LIDOCAINE 1% SDV INJ 30 ML VIAL As Ordered ONE; -TRIAMCINOLONE ACETONIDE SUSP 40 MG/ML VIAL (J3301) As Ordered ONE; -diazePAM 5 MG TAB As Ordered ONE; -oxyCODONE 5MG TAB As Ordered ONE
[2019-01-27 14:15] VITALS: BP 143/98
[2019-01-27] MEDS ORDERED: MEPOLIZUMAB SC ONE (15:00)
[2019-01-27 15:10] VITALS: BP 149/71
== END 2019-01-27 15:10 | disposition home or self-care (01) ==
LOC: M INFU 14:08
PROVIDERS: ATTEND Internal Medicine Pulmonary Disease
DX: 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 [Churg-Strauss] (principal)

== ENCOUNTER → 2019-02-03 | Outpatient (CLI) | payer MEDICARE ==
[~2019-02-03] MED LIST changes: +OMEP-172 PO; -OMEP20CA4 PO
--- NOTE | 2019-02-18 02:03 | ECWPNPC ---
PATIENT NAME: OWEN PHILLIPS : 1945 GENDER: MALE VISIT DATE: 02/03/2019 DISCHARGE DATE: 02/03/19 1528 VISIT LOCKED DATE TIME: PHYSICIAN: HARI VIGIL RESOURCE: HARI VIGIL REASON FOR APPOINTMENT 1. POST FACET HISTORY OF PRESENT ILLNESS HISTORY OF PRESENT ILLNESS: HERE FOR POST PROCEDURE F/U.HAD BILAT.T4/5-T5/6-T6/7 FACET BLOCK THERAPEUTIC BLOCK ON 01/12/19.PATIENT IS VAGUE HISTORIAN BUT WHAT I GATHER IS THAT INJECTIONS WERE HELPFUL FOR MID BACK PAIN.CHIEF AREA OF PAIN IS LOW BACK.RATING LBP 7/10 VAS.DESCRIBES INTERMITTENT ACHING PAIN THAT AWAKENS HIM FROM SLEEP AT TIMES.REVIEWED MRI L/S SPINE AND DISCUSSED TREATMENT OPTIONS. PAIN THE PATIENT DESCRIBES THE PAIN... FALL RISK SCREENING: SCREENING :NO FALLS REPORTED IN THE LAST YEAR CURRENT MEDICATIONS TAKING NUCALA 100 MG/ML SOLUTION PREFILLED SYRINGE DIRECTED SUBCUTANEOUS MONTHLY TAKING GEMFIBROZIL 600 MG TABLET 1 TABLET ORALLY DAILY TAKING JANUVIA 100 MG TABLET 1 TABLET ORALLY ONCE A DAY TAKING LISINOPRIL 20 MG TABLET 1 TABLET ORALLY ONCE A DAY TAKING PRAVASTATIN 40 20 MG TABLET 1 TAB(S) ORAL DAILY TAKING AMLODIPINE BESYLATE 10 MG TABLET 1 TABLET ORALLY ONCE A DAY TAKING VITAMIN B-6 50 MG TABLET 1 TABLET ORALLY ONCE A DAY TAKING ACETAMINOPHEN 650 MG TABLET 1 TABLET NEEDED ORALLY EVERY 6 HRS TAKING IBUPROFEN 600 MG TABLET 1 TABLET WITH FOOD OR MILK NEEDED ORALLY THREE TIMES A DAY TAKING OMEPRAZOLE 20 MG CAPSULE DELAYED RELEASE 1 CAPSULE ORALLY ONCE A DAY TAKING TRAMADOL HCL 50 MG TABLET 1 TABLET NEEDED ORALLY EVERY 8 HRS NOT-TAKING GABAPENTIN 100 MG CAPSULE DIRECTED ORALLY 2 CAP BID NOT-TAKING OXYBUTYNIN CHLORIDE ER 10 MG TABLET EXTENDED RELEASE 24 HOUR 1 TABLET ORALLY ONCE A DAY NOT-TAKING VIAGRA 100 MG TABLET 1 TABLET NEEDED ORALLY ONCE A DAY NOT-TAKING CYMBALTA 30 MG CAPSULE DELAYED RELEASE PARTICLES 1 CAPSULE ORALLY TWICE A DAY NOT-TAKING STENDRA 200 MG TABLET 1 TAB(S) ORALLY TAKE 1 TAB ON FRI/FRI/FRIDAY, NOTES: NOT LATELY MEDICATION LIST REVIEWED AND RECONCILED WITH THE PATIENT PAST MEDICAL HISTORY ARTHRITIS HYPERTENSION HYPERCHOLESTEROLEMIA DM LT EYE CATARACT NEPHROLITHIASIS(SPONTANOUS PASSAGE) SYNCOPE PROSTATE CA, [id number], VANI 7 (3+4) - S/P PROSTATECTOMY ENVIRONMENTAL ALLERGIES PNEUMONIA ALLERGIES N.K.D.A. SURGICAL HISTORY B/L CATARACT SURGERY 2013 BACK INJECTIONS X 2 12/2012 TRUS 07/23/2013 ROBOTIC ASSISTED RADICAL PROSTATECTOMY AND BILATERAL PELVIC LYMPH NODE DIESSECTION 09/07/13 FAMILY HISTORY FATHER: 73 YRS, STROKE, DIAGNOSED WITH UNSPECIFIED CEREBRAL ARTERY OCCLUSION WITH CEREBRAL INFARCTION MOTHER: 74 YRS, CANCER IN HIP, OTHER MALIGNANT NEOPLASM OF UNSPECIFIED SITE SIBLINGS: ALIVE, 1 BROTHER OLDER AND 1 SISTER YOUNGER LIVING 4 BROTHER(S) , 3 SISTER(S) . 1 SON(S) , 3 DAUGHTER(S) - HEALTHY. NO KNOWN FAMILY HISTORY OF ANY UROLOGICALLY RELATED DISEASES CANCERS. SOCIAL HISTORY GENERAL: TOBACCO USE ARE YOU A:FORMER SMOKER HOW LONG HAS IT BEEN SINCE YOU LAST SMOKED?> 10 YEARS OTHERS AT HOME: SIGNIFICANT OTHER/GIRLFRIEND. 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 LANGUAGE [place]. DOMESTIC VIOLENCE NONE. RECREATIONAL DRUG USE DENIES. EXERCISE: BIKES. LEARNING BARRIERS / SPECIAL NEEDS BARRIERS TO LEARNING?NO HEARING IMPAIRED?NO VISION IMPAIRED?NO COGNITIVELY IMPAIRED?NO READINESS TO LEARN?YES LEARNING PREFERENCES?NO LEARNING CAPABILITIES PRESENT?YES EMOTIONAL BARRIERS?NO SPECIAL DEVICES?NO PAIN CLINIC PFS, CLERGY, PUBLIC HEALTH REFERRALS HAS THE PATIENT BEEN EDUCATED REGARDING HIS/HER PLAN OF CARE?YES HAS THE PATIENT BEEN EDUCATED REGARDING PAIN, THE RISK FOR PAIN, THE IMPORTANCE OF EFFECTIVE PAIN MANAGEMENT, AND THE PAIN ASSESSMENT PROCESS?YES LATEX QUESTIONNAIRE LATEX ALLERGY : HAVE YOU EVER DEVELOPED ANY TYPE OF REACTION AFTER HANDLING LATEX PRODUCTS SUCH RUBBER GLOVES, CONDOMS, DIAPHRAGMS, BALLOONS, SOCKS, OR UNDERWEAR?NO LATEX ALLERGY : HAVE YOU EVER DEVELOPED ANY TYPE OF REACTION DURING OR AFTER DENTAL APPOINTMENT, VAGINAL/RECTAL EXAMINATION, SURGICAL PROCEDURE, OR ANY OTHER EXPOSURE?NO DATE ASKED : 06/09/2018 LATEX RISK : HAVE YOU EVER HAD ANY DIFFICULTY BREATHING OR HIVES AFTER EATING OR HANDLING ANY FRUITS, OR VEGETABLES; SUCH KIWI, BANANAS, STONE FRUITS, OR CHESTNUTSNO LATEX RISK : DO YOU HAVE A PREVIOUS PERSONAL HISTORY OF MORE THAN NINE SURGERIES, SPINA BIFIDA, OR REPEATED CATHERIZATIONS? NO LATEX RISK : ARE YOU FREQUENTLY EXPOSED TO LATEX PRODUCTS IN YOUR OCCUPATION?NO CAFFEINE 2-5/DAY. ADVANCE DIRECTIVE ADVANCE DIRECTIVE DISCUSSED WITH PATIENT:YES PT DOES NOT HAVE HCP AND DECLINES INFO AT THIS TIME RASTAFARI JAIN. MARITAL STATUS: . ALCOHOL SCREENING POINTS: 0, INTERPRETATION: NEGATIVE. 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 SEXUAL HX HAD SEX IN THE LAST 12 MONTHS (VAGINAL, ORAL, OR ANAL)?: YES, WITH: WOMEN ONLY, USE PROTECTION?: NO, HAVE YOU EVER HAD AN STD?: NO. REVIEWED WITH PT 06/09/18 1411 BVREVIEWED WITH PT 08/27/18 1023 BVREVIEWED WITH PT 09/29/18 1149 NLJ. HOSPITALIZATION/MAJOR DIAGNOSTIC PROCEDURE SYNCOPE CAH 03/14/13 PNEUMONIA 01/22-01/24/17 PNEUMONIA 06/2017 REVIEW OF SYSTEMS REVIEWED BY: PROVIDER: HARI LOWERY . CONSTITUTIONAL: ANY CHANGE IN YOUR MEDICAL CONDITION? NO . CHILLS NO . FEVER NO . INFECTION: DO YOU HAVE NEW INFECTIONS? NO . DO YOU HAVE HISTORY OF MRSA? NO . MUSCULOSKELETAL: ANY NEW PATTERNS OF PAIN OR NUMBNESS? NO . GASTROENTEROLOGY: ANY NEW CHANGE IN BOWEL CONTROL? NO . GENITOURINARY: ANY NEW CHANGE IN BLADDER CONTROL? NO . IS THERE A CHANCE YOU COULD BE ? NO . HEMATOLOGY/LYMPH: DO YOU TAKE ANY BLOOD THINNERS? (FOR EXAMPLE- COUMADIN, PLAVIX, AGGRENOX, PLATEL, PRADAXA, OR XARELTO) NO . WHEN WAS YOUR LAST DOSE? DATE: TIME: . NEUROLOGY: HAVE YOU FALLEN IN THE PAST 12 MONTHS? NO . ANY NEW EXTREMITY NUMBNESS OR WEAKNESS? NO . CARDIOLOGY: DO YOU HAVE A PACEMAKER OR DEFIBRILLATOR? NO . RESPIRATORY: HAVE YOU BEEN SICK IN THE PAST WEEK? YES, SINUS CONGESTION . FEVER NO . FLU LIKE SYMPTOMS? NO . COUGH NO . INTEGUMENTARY: DO YOU HAVE ANY RASHES OR OPEN SORES? NO . ALLERGIC/IMMUNO: ARE YOU ALLERGIC TO IV DYE? NO . ANY NEW ALLERGIES? NO . PSYCHIATRIC: DO YOU HAVE THOUGHTS OF HURTING YOURSELF OR SOMEONE ELSE? NO . ARE YOU ABUSED, NEGLECTED, OR IN AN UNSAFE ENVIRONMENT? NO . ENDOCRINOLOGY: ARE YOU DIABETIC? YES . OTHER: DO YOU NEED ANY PRESCRIPTIONS? YES, TO DISCUSS . IF YES, PLEASE LIST: ____ . ANY NEW PROBLEMS WITH YOUR MEDICATIONS? NO . WHEN DID YOU LAST EAT? ____ . WHEN DID YOU LAST DRINK? ____ . WHAT DID YOU LAST DRINK? ____ . NAME OF PERSON DRIVING YOU HOME? ____ . DO YOU HAVE ANY OTHER QUESTIONS OR CONCERNS NO . VITAL SIGNS WT 253.8 LBS, HT 72 IN, BMI 34.42 INDEX, BP 155/72 MM HG, HR 72 /MIN, RR 20 /MIN, TEMP 97.6 F, OXYGEN SAT % 95%, NA INITIALS SC 14:31, REVIEWED BY: ELENI. EXAMINATION GENERAL EXAMINATION: GENERAL AWAKE,ALERT ,PLEASANT . PSYCH AFFECT NORMAL . LUNGS: LUNG ALVARADO ARE CLEAR TO AUSCULTATION BILATERALLY. GOOD MOVEMENT OF AIR . HEART: S1, S2 IN A REGULAR RATE AND RHYTHM. NO SIGNIFICANT MURMURS, RUBS OR GALLOPS NOTED . FOR BILAT. SIJ PALPATION:TENDER OVER BILAT. L4/5-L5/S1 LUMBAR FACETS WITH FACET LOADING.. DIAGNOSTIC TESTS REVIEWED MRI L/S SPINE-04/21/18. 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 PROCEDURE CODES FA211 ESTABILISHED PATIENT [facility] CHARGE DISPOSITION & COMMUNICATION FOLLOW UP POST (REASON: BILAT L4/5-L5/S1 LFBDX) ELECTRONICALLY SIGNED BY BEVERLEY PUENTE ON 02/17/2019 AT 03:57 PM EST DISCLAIMER : THIS IS A VISIT SUMMARY EXTRACTED FROM THE [facility] CHART. IT IS NOT A COPY OF THE [facility] PROGRESS NOTE. CAIO
== END ==
LOC: M PAIN 14:00
PROVIDERS: ATTEND Nurse Practitioner Family
DX: M47.817 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lopathy, lumbosacral region (principal); G62.9 Polyneuropathy, unspecified; I10 Essential (primary) hypertension; E78.00 Pure hypercholesterolemia, unspecified; E11.9 Type 2 diabetes mellitus without complications; Z87.891 Personal history of nicotine dependence; Z79.84 Long term (current) use of oral hypoglycemic drugs; Z79.899 Other long term (current) drug therapy

== ENCOUNTER → 2019-03-31 | Outpatient (CLI) | payer MEDICARE ==
[~2019-03-31] MED LIST changes: +BUPIVACAINE HCL 0.25% 30 ML VIAL As Ordered ONE; +ISOVUE-M 300 61% 15ML VIAL (Q9967) As Ordered ONE; +LIDOCAINE 1% SDV INJ 30 ML VIAL As Ordered ONE; -OMEP-172 PO; +OMEP1CAP73 PO
--- NOTE | 2019-03-31 14:12 | REP ---
C-ARM VIEWS OF THE LUMBAR SPINE: CLINICAL HISTORY: Pain. Two C-arm views of the lower lumbar spine performed during facet injections by Dr. Richard. Twining are seen along the lower lumbar facets and a small amount of contrast is injected. 29 seconds of fluoroscopy time utilized. Electronically Signed by Kwabena Fox MD 03/31/2019 11:07 P
--- NOTE | 2019-04-09 02:44 | ECWPNPC ---
PATIENT NAME: OWEN PHILLIPS : 1945 GENDER: MALE VISIT DATE: 03/31/2019 DISCHARGE DATE: 03/31/19 1416 VISIT LOCKED DATE TIME: PHYSICIAN: KEREN WHYTE MD RESOURCE: KEREN WHYTE MD REASON FOR APPOINTMENT 1. BILAT L5/S1 LFBDX HISTORY OF PRESENT ILLNESS HISTORY OF PRESENT ILLNESS: PAIN THE PATIENT DESCRIBES THE PAIN... FALL RISK SCREENING: SCREENING :NO FALLS REPORTED IN THE LAST YEAR CURRENT MEDICATIONS TAKING NUCALA 100 MG/ML SOLUTION PREFILLED SYRINGE DIRECTED SUBCUTANEOUS MONTHLY, NOTES: 03/02/20 TAKING GEMFIBROZIL 600 MG TABLET 1 TABLET ORALLY DAILY, NOTES: 10:30 PM YESTERDAY TAKING JANUVIA 100 MG TABLET 1 TABLET ORALLY ONCE A DAY, NOTES: 03/29/19 10:00 PM TAKING LISINOPRIL 20 MG TABLET 1 TABLET ORALLY ONCE A DAY, NOTES: 10:30 PM YESTERDAY TAKING PRAVASTATIN 40 20 MG TABLET 1 TAB(S) ORAL DAILY, NOTES: 10:30 PM YESTERDAY TAKING AMLODIPINE BESYLATE 10 MG TABLET 1 TABLET ORALLY ONCE A DAY, NOTES: 10:30 PM YESTERDAY TAKING VITAMIN B-6 50 MG TABLET 1 TABLET ORALLY ONCE A DAY, NOTES: HASN'T TAKEN RECENTLY TAKING ACETAMINOPHEN 650 MG TABLET 1 TABLET NEEDED ORALLY EVERY 6 HRS, NOTES: HASN'T TAKEN RECENTLY TAKING OMEPRAZOLE 20 MG CAPSULE DELAYED RELEASE 1 CAPSULE ORALLY ONCE A DAY, NOTES: 10:30 PM YESTERDAY TAKING IBUPROFEN 600 MG TABLET 1 TABLET WITH FOOD OR MILK NEEDED ORALLY THREE TIMES A DAY, NOTES: 10:30 PM YESTERDAY TAKING GABAPENTIN 100 MG CAPSULE 2 CAP ORALLY BID, NOTES: 10:30 PM YESTERDAY NOT-TAKING TRAMADOL HCL 50 MG TABLET 1 TABLET NEEDED ORALLY EVERY 8 HRS NOT-TAKING GABAPENTIN 100 MG CAPSULE DIRECTED ORALLY 2 CAP BID NOT-TAKING OXYBUTYNIN CHLORIDE ER 10 MG TABLET EXTENDED RELEASE 24 HOUR 1 TABLET ORALLY ONCE A DAY NOT-TAKING VIAGRA 100 MG TABLET 1 TABLET NEEDED ORALLY ONCE A DAY NOT-TAKING CYMBALTA 30 MG CAPSULE DELAYED RELEASE PARTICLES 1 CAPSULE ORALLY TWICE A DAY NOT-TAKING STENDRA 200 MG TABLET 1 TAB(S) ORALLY TAKE 1 TAB ON FRI/FRI/FRIDAY, NOTES: NOT LATELY MEDICATION LIST REVIEWED AND RECONCILED WITH THE PATIENT PAST MEDICAL HISTORY ARTHRITIS HYPERTENSION HYPERCHOLESTEROLEMIA DM BILATERAL CATARACT REMOVAL NEPHROLITHIASIS(SPONTANOUS PASSAGE) SYNCOPE PROSTATE CA, [id number], VANI 7 (3+4) - S/P PROSTATECTOMY ENVIRONMENTAL ALLERGIES PNEUMONIA ALLERGIES N.K.D.A. SURGICAL HISTORY B/L CATARACT SURGERY 2013 BACK INJECTIONS X 2 12/2012 TRUS 07/23/2013 ROBOTIC ASSISTED RADICAL PROSTATECTOMY AND BILATERAL PELVIC LYMPH NODE DIESSECTION 09/07/13 FAMILY HISTORY FATHER: 73 YRS, STROKE, DIAGNOSED WITH UNSPECIFIED CEREBRAL ARTERY OCCLUSION WITH CEREBRAL INFARCTION MOTHER: 74 YRS, CANCER IN HIP, OTHER MALIGNANT NEOPLASM OF UNSPECIFIED SITE SIBLINGS: ALIVE, 1 BROTHER OLDER AND 1 SISTER YOUNGER LIVING 4 BROTHER(S) , 3 SISTER(S) . 1 SON(S) , 3 DAUGHTER(S) - HEALTHY. NO KNOWN FAMILY HISTORY OF ANY UROLOGICALLY RELATED DISEASES CANCERS. SOCIAL HISTORY GENERAL: TOBACCO USE ARE YOU A:FORMER SMOKER HOW LONG HAS IT BEEN SINCE YOU LAST SMOKED?> 10 YEARS OTHERS AT HOME: SIGNIFICANT OTHER/GIRLFRIEND. 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 LANGUAGE URDU. DOMESTIC VIOLENCE NONE. RECREATIONAL DRUG USE DENIES. EXERCISE: BIKES. LEARNING BARRIERS / SPECIAL NEEDS BARRIERS TO LEARNING?NO HEARING IMPAIRED?NO VISION IMPAIRED?NO COGNITIVELY IMPAIRED?NO READINESS TO LEARN?YES LEARNING PREFERENCES?NO LEARNING CAPABILITIES PRESENT?YES EMOTIONAL BARRIERS?NO SPECIAL DEVICES?NO PAIN CLINIC PFS, CLERGY, PUBLIC HEALTH REFERRALS HAS THE PATIENT BEEN EDUCATED REGARDING HIS/HER PLAN OF CARE?YES HAS THE PATIENT BEEN EDUCATED REGARDING PAIN, THE RISK FOR PAIN, THE IMPORTANCE OF EFFECTIVE PAIN MANAGEMENT, AND THE PAIN ASSESSMENT PROCESS?YES LATEX QUESTIONNAIRE LATEX ALLERGY : HAVE YOU EVER DEVELOPED ANY TYPE OF REACTION AFTER HANDLING LATEX PRODUCTS SUCH RUBBER GLOVES, CONDOMS, DIAPHRAGMS, BALLOONS, SOCKS, OR UNDERWEAR?NO LATEX ALLERGY : HAVE YOU EVER DEVELOPED ANY TYPE OF REACTION DURING OR AFTER DENTAL APPOINTMENT, VAGINAL/RECTAL EXAMINATION, SURGICAL PROCEDURE, OR ANY OTHER EXPOSURE?NO DATE ASKED : 06/09/2018 LATEX RISK : HAVE YOU EVER HAD ANY DIFFICULTY BREATHING OR HIVES AFTER EATING OR HANDLING ANY FRUITS, OR VEGETABLES; SUCH KIWI, BANANAS, STONE FRUITS, OR CHESTNUTSNO LATEX RISK : DO YOU HAVE A PREVIOUS PERSONAL HISTORY OF MORE THAN NINE SURGERIES, SPINA BIFIDA, OR REPEATED CATHERIZATIONS? NO LATEX RISK : ARE YOU FREQUENTLY EXPOSED TO LATEX PRODUCTS IN YOUR OCCUPATION?NO CAFFEINE 2-5/DAY. ADVANCE DIRECTIVE ADVANCE DIRECTIVE DISCUSSED WITH PATIENT:YES PT DOES NOT HAVE HCP AND DECLINES INFO AT THIS TIME FAITH TAOIST. MARITAL STATUS: . ALCOHOL SCREENING POINTS: 0, INTERPRETATION: NEGATIVE. 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 SEXUAL HX HAD SEX IN THE LAST 12 MONTHS (VAGINAL, ORAL, OR ANAL)?: YES, WITH: WOMEN ONLY, USE PROTECTION?: NO, HAVE YOU EVER HAD AN STD?: NO. REVIEWED WITH PT 06/09/18 1411 BVREVIEWED WITH PT 08/27/18 1023 BVREVIEWED WITH PT 09/29/18 1149 NLJPRE PROCEDURE PHONE CALL COMPLETED 03/29/2019 1401 NLJ. HOSPITALIZATION/MAJOR DIAGNOSTIC PROCEDURE SYNCOPE CAH 03/14/13 PNEUMONIA 01/22-01/24/17 PNEUMONIA 06/2017 REVIEW OF SYSTEMS REVIEWED BY: PROVIDER: . CONSTITUTIONAL: ANY CHANGE IN YOUR MEDICAL CONDITION? NO . CHILLS NO . FEVER NO . INFECTION: DO YOU HAVE NEW INFECTIONS? NO . DO YOU HAVE HISTORY OF MRSA? NO . MUSCULOSKELETAL: ANY NEW PATTERNS OF PAIN OR NUMBNESS? NO . GASTROENTEROLOGY: ANY NEW CHANGE IN BOWEL CONTROL? NO . GENITOURINARY: ANY NEW CHANGE IN BLADDER CONTROL? NO . IS THERE A CHANCE YOU COULD BE ? NO . HEMATOLOGY/LYMPH: DO YOU TAKE ANY BLOOD THINNERS? (FOR EXAMPLE- COUMADIN, PLAVIX, AGGRENOX, PLATEL, PRADAXA, OR XARELTO) NO . WHEN WAS YOUR LAST DOSE? DATE: TIME: . NEUROLOGY: HAVE YOU FALLEN IN THE PAST 12 MONTHS? NO . ANY NEW EXTREMITY NUMBNESS OR WEAKNESS? YES . CARDIOLOGY: DO YOU HAVE A PACEMAKER OR DEFIBRILLATOR? NO . RESPIRATORY: HAVE YOU BEEN SICK IN THE PAST WEEK? NO . FEVER NO . FLU LIKE SYMPTOMS? NO . COUGH NO . INTEGUMENTARY: DO YOU HAVE ANY RASHES OR OPEN SORES? NO . ALLERGIC/IMMUNO: ARE YOU ALLERGIC TO IV DYE? NO . ANY NEW ALLERGIES? NO . PSYCHIATRIC: DO YOU HAVE THOUGHTS OF HURTING YOURSELF OR SOMEONE ELSE? NO . ARE YOU ABUSED, NEGLECTED, OR IN AN UNSAFE ENVIRONMENT? NO . ENDOCRINOLOGY: ARE YOU DIABETIC? YES . OTHER: DO YOU NEED ANY PRESCRIPTIONS? NO . IF YES, PLEASE LIST: ____ . ANY NEW PROBLEMS WITH YOUR MEDICATIONS? NO . WHEN DID YOU LAST EAT? 1-28-20 2000 . WHEN DID YOU LAST DRINK? 03-30-190 . WHAT DID YOU LAST DRINK? WATER . NAME OF PERSON DRIVING YOU HOME? BINA . DO YOU HAVE ANY OTHER QUESTIONS OR CONCERNS NO . VITAL SIGNS WT 257.2 LBS, HT 72 IN, BMI 34.88 INDEX, BP 138/76 MM HG, HR 81 /MIN, RR 18 /MIN, TEMP 98.1 F, OXYGEN SAT % 95, SAFE IN ENV? (Y/N) YES, REVIEWED BY: LSB. WILLI SIGALA. 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 KEREN WHYTE BODY SHOP TECHNICIAN NONE ANESTHESIA LOCAL PRE PROCEDURE NOTE THE PATIENT WITH HISTORY OF CHRONIC LOW BACK PAIN. I EVALUATED THE PATIENT AND REVIEWED THE CHART. I WENT OVER THE RISKS, ALTERNATIVES, AND BENEFITS ASSOCIATED WITH THIS PROCEDURE. THE PATIENT WOULD LIKE TO PROCEED AND GAVE CONSENT TO PERFORM THE PROCEDURE. AGREED WITH THE PATIENT WE ARE DOING THIS PROCEDURE TO DETERMINE IF THE PATIENT IS A CANDIDATE FOR A RADIOFREQUENCY ABLATION OF THE FACETS JOINTS. THE PATIENT DENIES UNEXPLAINABLE WEIGHT LOSS, FEVER, CHILLS, OR NEW CHANGES IN URINARY OR BOWEL CONTROL DESCRIPTION OF PROCEDURE THE PATIENT WAS BROUGHT TO THE PROCEDURE ROOM AND PLACED IN THE PRONE POSITION. THE LUMBOSACRAL AREA WAS CLEANED WITH CHLORAPREP SOLUTION AND DRAPED ASEPTICALLY. THE PROCEDURE WAS DONE UNDER STERILE CONDITIONS. I CHECKED LATERALITY AND THE LEVEL WHERE THE PROCEDURE WAS GOING TO BE PERFORMED WITH THE PATIENT AND THE SUPPORTING STAFF AT THE MOMENT OF THE TIME OUT IN THE PROCEDURE ROOM. UNDER FLUOROSCOPIC GUIDANCE, TARGETS WERE SELECTED AT THE INTERSECTION OF THE RIGHT AND LEFT TRANSVERSE PROCESS OF L4, L5 AND ALA OF S1 WITH ITS RESPECTIVE SUPERIOR ARTICULAR PROCESS. LIDOCAINE WAS USED TO NUMB THE SKIN AND THE SUBCUTANEOUS TISSUE BELOW IT. SPINAL NEEDLE, 22-GAUGE WAS ADVANCED UNDER FLUOROSCOPIC GUIDANCE AND FOLLOWING PATIENT FEEDBACK UNTIL THE TARGETS WERE REACHED. POSITION OF THE NEEDLES WAS VERIFIED WITH AP AND LATERAL VIEWS. AFTER PROPER POSITION OF THE NEEDLES WAS ACHIEVED, ISOVUE-M DYE 30% 0.1 ML WAS INJECTED AT EACH SITE SHOWING ADEQUATE SPREAD OF THE DYE. THEN A SOLUTION OF 0.4 ML OF BUPIVACAINE 0.25% WAS INJECTED AT EACH SITE. THERE WAS NO EVIDENCE OF BLOOD, PARESTHESIA OR CEREBROSPINAL FLUID DURING THE PROCEDURE. THE PATIENT WAS SENT TO THE RECOVERY ROOM. THE PATIENT WAS MOVING THE EXTREMITIES AND DOING WELL. THERE WAS NO COMPLICATION DURING THE PROCEDURE. FLUOROSCOPY TIME WAS 29 SECONDS POST PROCEDURE NOTE THE PATIENT WILL DOCUMENT HIS PAIN LEVEL AND RESPONSE TO THIS PROCEDURE EVERY 30 MINUTES. THE PATIENT WILL BE SEEN IN A FOLLOW UP IN THE NEXT FEW WEEKS. FURTHER DETERMINATION FOR HIS CASE WILL BE DONE AT THE NEXT VISIT. INSTRUCTIONS WERE GIVEN, QUESTIONS WERE ANSWERED, AND THE PATIENT EXPRESSED UNDERSTANDING AND AGREED WITH THE PLAN. I, PETRA CORDOVA, DOCUMENTED THE ABOVE INFORMATION ACTING A SCRIBE FOR DR. WHYTE. I HAVE REVIEWED THE ABOVE DOCUMENT, WRITTEN BY PETRA CORDOVA SCRIBPhyllis AND I VERIFY THAT IT IS ACCURATE. PROCEDURE CODES 83833 INJ PARAVERT F JNT L/S 1 LEV, MODIFIERS: [id number] RADXPS IN END [id number] PXD DISPOSITION & COMMUNICATION FOLLOW UP 3 WEEKS ELECTRONICALLY SIGNED BY KEREN WHYTE MD, MD ON 04/08/2019 AT 05:42 PM EST DISCLAIMER : THIS IS A VISIT SUMMARY EXTRACTED FROM THE [employer] CHART. IT IS NOT A COPY OF THE [employer] PROGRESS NOTE. MTDD
== END ==
LOC: M PAIN 11:00
PROVIDERS: ATTEND Anesthesiology
DX: M47.817 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lopathy, lumbosacral region (principal)
CPT/HCPCS: 64493; Q9967

== ENCOUNTER → 2019-04-14 | Outpatient (CLI) | payer MEDICARE ==
[~2019-04-14] MED LIST changes: -BUPIVACAINE HCL 0.25% 30 ML VIAL As Ordered ONE; -ISOVUE-M 300 61% 15ML VIAL (Q9967) As Ordered ONE; -LIDOCAINE 1% SDV INJ 30 ML VIAL As Ordered ONE
--- NOTE | 2019-04-30 04:10 | ECWPNPC ---
PATIENT NAME: OWEN PHILLIPS : 1945 GENDER: MALE VISIT DATE: 04/14/2019 DISCHARGE DATE: 04/14/19 1431 VISIT LOCKED DATE TIME: PHYSICIAN: HARI VIGIL RESOURCE: HARI VIGIL REASON FOR APPOINTMENT 1. POST FACET BLK HISTORY OF PRESENT ILLNESS HISTORY OF PRESENT ILLNESS: HERE FOR POST PROCEDURE FOLLOW-UP. HAD BILATERAL LUMBAR L4-5, L5-S1 FACET BLOCK DIAGNOSTIC ON 03/31/2019. REPORTING GREATER THAN 80% REDUCTION IN PAIN FOR 24 HOURS POST PROCEDURE . THE DAY AFTER THE PROCEDURE, PAIN ABRUPTLY RETURNED TO BASELINE. RATING PAIN INTENSITY AN 8/10. DESCRIBES PAIN CONTINUOUS, ACHING, BURNING AND SORE. REPORTS NIGHTTIME AWAKENINGS DUE TO PAIN. PAIN THE PATIENT DESCRIBES THE PAIN... FALL RISK SCREENING: SCREENING :NO FALLS REPORTED IN THE LAST YEAR CURRENT MEDICATIONS TAKING NUCALA 100 MG/ML SOLUTION PREFILLED SYRINGE DIRECTED SUBCUTANEOUS MONTHLY TAKING GEMFIBROZIL 600 MG TABLET 1 TABLET ORALLY DAILY TAKING JANUVIA 100 MG TABLET 1 TABLET ORALLY ONCE A DAY TAKING LISINOPRIL 20 MG TABLET 1 TABLET ORALLY ONCE A DAY TAKING PRAVASTATIN 40 20 MG TABLET 1 TAB(S) ORAL DAILY TAKING AMLODIPINE BESYLATE 10 MG TABLET 1 TABLET ORALLY ONCE A DAY TAKING VITAMIN B-6 50 MG TABLET 1 TABLET ORALLY ONCE A DAY TAKING ACETAMINOPHEN 650 MG TABLET 1 TABLET NEEDED ORALLY EVERY 6 HRS TAKING OMEPRAZOLE 20 MG CAPSULE DELAYED RELEASE 1 CAPSULE ORALLY ONCE A DAY TAKING IBUPROFEN 600 MG TABLET 1 TABLET WITH FOOD OR MILK NEEDED ORALLY THREE TIMES A DAY TAKING GABAPENTIN 100 MG CAPSULE 2 CAP ORALLY BID NOT-TAKING TRAMADOL HCL 50 MG TABLET 1 TABLET NEEDED ORALLY EVERY 8 HRS NOT-TAKING GABAPENTIN 100 MG CAPSULE DIRECTED ORALLY 2 CAP BID NOT-TAKING OXYBUTYNIN CHLORIDE ER 10 MG TABLET EXTENDED RELEASE 24 HOUR 1 TABLET ORALLY ONCE A DAY NOT-TAKING VIAGRA 100 MG TABLET 1 TABLET NEEDED ORALLY ONCE A DAY NOT-TAKING CYMBALTA 30 MG CAPSULE DELAYED RELEASE PARTICLES 1 CAPSULE ORALLY TWICE A DAY NOT-TAKING STENDRA 200 MG TABLET 1 TAB(S) ORALLY TAKE 1 TAB ON FRI/FRI/FRIDAY, NOTES: NOT LATELY MEDICATION LIST REVIEWED AND RECONCILED WITH THE PATIENT PAST MEDICAL HISTORY ARTHRITIS HYPERTENSION HYPERCHOLESTEROLEMIA DM BILATERAL CATARACT REMOVAL NEPHROLITHIASIS(SPONTANOUS PASSAGE) SYNCOPE PROSTATE CA, [id number], VANI 7 (3+4) - S/P PROSTATECTOMY ENVIRONMENTAL ALLERGIES PNEUMONIA ALLERGIES N.K.D.A. SURGICAL HISTORY B/L CATARACT SURGERY 2013 BACK INJECTIONS X 2 12/2012 TRUS 07/23/2013 ROBOTIC ASSISTED RADICAL PROSTATECTOMY AND BILATERAL PELVIC LYMPH NODE DIESSECTION 09/07/13 FAMILY HISTORY FATHER: 73 YRS, STROKE, DIAGNOSED WITH UNSPECIFIED CEREBRAL ARTERY OCCLUSION WITH CEREBRAL INFARCTION MOTHER: 74 YRS, CANCER IN HIP, OTHER MALIGNANT NEOPLASM OF UNSPECIFIED SITE SIBLINGS: ALIVE, 1 BROTHER OLDER AND 1 SISTER YOUNGER LIVING 4 BROTHER(S) , 3 SISTER(S) . 1 SON(S) , 3 DAUGHTER(S) - HEALTHY. NO KNOWN FAMILY HISTORY OF ANY UROLOGICALLY RELATED DISEASES CANCERS. SOCIAL HISTORY GENERAL: TOBACCO USE ARE YOU A:FORMER SMOKER HOW LONG HAS IT BEEN SINCE YOU LAST SMOKED?> 10 YEARS OTHERS AT HOME: SIGNIFICANT OTHER/GIRLFRIEND. 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 LANGUAGE [place]. DOMESTIC VIOLENCE NONE. RECREATIONAL DRUG USE DENIES. EXERCISE: BIKES. LEARNING BARRIERS / SPECIAL NEEDS BARRIERS TO LEARNING?NO HEARING IMPAIRED?NO VISION IMPAIRED?NO COGNITIVELY IMPAIRED?NO READINESS TO LEARN?YES LEARNING PREFERENCES?NO LEARNING CAPABILITIES PRESENT?YES EMOTIONAL BARRIERS?NO SPECIAL DEVICES?NO PAIN CLINIC PFS, CLERGY, PUBLIC HEALTH REFERRALS HAS THE PATIENT BEEN EDUCATED REGARDING HIS/HER PLAN OF CARE?YES HAS THE PATIENT BEEN EDUCATED REGARDING PAIN, THE RISK FOR PAIN, THE IMPORTANCE OF EFFECTIVE PAIN MANAGEMENT, AND THE PAIN ASSESSMENT PROCESS?YES LATEX QUESTIONNAIRE LATEX ALLERGY : HAVE YOU EVER DEVELOPED ANY TYPE OF REACTION AFTER HANDLING LATEX PRODUCTS SUCH RUBBER GLOVES, CONDOMS, DIAPHRAGMS, BALLOONS, SOCKS, OR UNDERWEAR?NO LATEX ALLERGY : HAVE YOU EVER DEVELOPED ANY TYPE OF REACTION DURING OR AFTER DENTAL APPOINTMENT, VAGINAL/RECTAL EXAMINATION, SURGICAL PROCEDURE, OR ANY OTHER EXPOSURE?NO LATEX RISK : HAVE YOU EVER HAD ANY DIFFICULTY BREATHING OR HIVES AFTER EATING OR HANDLING ANY FRUITS, OR VEGETABLES; SUCH KIWI, BANANAS, STONE FRUITS, OR CHESTNUTSNO LATEX RISK : DO YOU HAVE A PREVIOUS PERSONAL HISTORY OF MORE THAN NINE SURGERIES, SPINA BIFIDA, OR REPEATED CATHERIZATIONS? NO LATEX RISK : ARE YOU FREQUENTLY EXPOSED TO LATEX PRODUCTS IN YOUR OCCUPATION?NO DATE ASKED : 06/09/2018 CAFFEINE 2-5/DAY. ADVANCE DIRECTIVE ADVANCE DIRECTIVE DISCUSSED WITH PATIENT:YES 04/14/2019 PT DOES NOT HAVE HCP AND DECLINES INFO AT THIS TIME. JS GNOSTICIST EPISCOPAL. MARITAL STATUS: . ALCOHOL SCREENING POINTS: 0, INTERPRETATION: NEGATIVE. 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 SEXUAL HX HAD SEX IN THE LAST 12 MONTHS (VAGINAL, ORAL, OR ANAL)?: YES, WITH: WOMEN ONLY, USE PROTECTION?: NO, HAVE YOU EVER HAD AN STD?: NO. REVIEWED WITH PT 06/09/18 1411 BVREVIEWED WITH PT 08/27/18 1023 BVREVIEWED WITH PT 09/29/18 1149 NLJPRE PROCEDURE PHONE CALL COMPLETED 03/29/2019 1401 NLJREVIEWED WITH PATIENT 04/14/2019 1358 JS. HOSPITALIZATION/MAJOR DIAGNOSTIC PROCEDURE SYNCOPE CAH 03/14/13 PNEUMONIA 01/22-01/24/17 PNEUMONIA 06/2017 REVIEW OF SYSTEMS REVIEWED BY: PROVIDER: HARI LOWERY . CONSTITUTIONAL: ANY CHANGE IN YOUR MEDICAL CONDITION? NO . CHILLS NO . FEVER NO . INFECTION: DO YOU HAVE NEW INFECTIONS? NO . DO YOU HAVE HISTORY OF MRSA? NO . MUSCULOSKELETAL: ANY NEW PATTERNS OF PAIN OR NUMBNESS? NO . GASTROENTEROLOGY: ANY NEW CHANGE IN BOWEL CONTROL? NO . GENITOURINARY: ANY NEW CHANGE IN BLADDER CONTROL? NO . IS THERE A CHANCE YOU COULD BE ? NO . HEMATOLOGY/LYMPH: DO YOU TAKE ANY BLOOD THINNERS? (FOR EXAMPLE- COUMADIN, PLAVIX, AGGRENOX, PLATEL, PRADAXA, OR XARELTO) NO . WHEN WAS YOUR LAST DOSE? DATE: TIME: . NEUROLOGY: HAVE YOU FALLEN IN THE PAST 12 MONTHS? NO . ANY NEW EXTREMITY NUMBNESS OR WEAKNESS? NO . CARDIOLOGY: DO YOU HAVE A PACEMAKER OR DEFIBRILLATOR? NO . RESPIRATORY: HAVE YOU BEEN SICK IN THE PAST WEEK? NO . FEVER NO . FLU LIKE SYMPTOMS? NO . COUGH NO . INTEGUMENTARY: DO YOU HAVE ANY RASHES OR OPEN SORES? NO . ALLERGIC/IMMUNO: ARE YOU ALLERGIC TO IV DYE? NO . ANY NEW ALLERGIES? NO . PSYCHIATRIC: DO YOU HAVE THOUGHTS OF HURTING YOURSELF OR SOMEONE ELSE? NO . ARE YOU ABUSED, NEGLECTED, OR IN AN UNSAFE ENVIRONMENT? NO . ENDOCRINOLOGY: ARE YOU DIABETIC? YES, TYPE II . OTHER: DO YOU NEED ANY PRESCRIPTIONS? NO . IF YES, PLEASE LIST: ____ . ANY NEW PROBLEMS WITH YOUR MEDICATIONS? NO . WHEN DID YOU LAST EAT? ____ . WHEN DID YOU LAST DRINK? ____ . WHAT DID YOU LAST DRINK? ____ . NAME OF PERSON DRIVING YOU HOME? ____ . DO YOU HAVE ANY OTHER QUESTIONS OR CONCERNS NO . VITAL SIGNS WT 259.6 LBS, HT 72 IN, BMI 35.20 INDEX, BP 145/68 MM HG, HR 84 /MIN, RR 20 /MIN, TEMP 97.3 F, OXYGEN SAT % 96%, SAFE IN ENV? (Y/N) YES, NA INITIALS MS 1356, REVIEWED BY: RUY. EXAMINATION GENERAL EXAMINATION: GENERAL AWAKE,ALERT ,PLEASANT . PSYCH AFFECT NORMAL . LUNGS: LUNG ALVARADO ARE CLEAR TO AUSCULTATION BILATERALLY. GOOD MOVEMENT OF AIR . HEART: S1, S2 IN A REGULAR RATE AND RHYTHM. NO SIGNIFICANT MURMURS, RUBS OR GALLOPS NOTED . LUMBAR:PALPATION:TENDER OVER BILAT. L4/5-L5/S1 LUMBAR FACETS WITH FACET LOADING.. DIAGNOSTIC TESTS REVIEWED MRI L/S SPINE-04/21/18. 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 NEXT VISIT WILL BE FOR RIGHT L4-5, L5-S1 DIAGNOSTIC BLOCK #2. HE WILL SEE ME AFTER THIS TEST FOR A FOLLOW-UP WITH HOURLY PAIN DIARY. IF THIS SHOWS TO BE EFFECTIVE WE WILL PROCEED TO RADIOFREQUENCY ON THE RIGHT SIDE AT HIS NEXT VISIT. AFTER RADIOFREQUENCY ON THE RIGHT SIDE WE WILL PROCEED WITH DIAGNOSTIC #2 ON THE LEFT SIDE AND IF THIS IS EFFECTIVE, WE WOULD PROCEED TO LEFT SIDED RADIOFREQUENCY.RIGHT L4/5-L5/S1 LFBDX#2. PREVENTIVE MEDICINE PAIN CLINIC TEACHING: PROCEDURE TEACHING REVIEWED INFORMATION ON DIAGNOSTIC FACET BLOCK PROCEDURE WITH PATIENT. ALSO REVIEWED PRE-PROCEDURE INSTRUCTIONS. PATIENT VERBALIZED AN UNDERSTANDING. WILLIAM FRANKEL 04/14/2019 3:43:25 PM > . PROCEDURE CODES FA211 ESTABILISHED PATIENT [facility] FAC[facility] CHARGE DISPOSITION & COMMUNICATION FOLLOW UP POST (REASON: RIGHT L4/5-L5/S1 LFBDX#2) ELECTRONICALLY SIGNED BY BEVERLEY PUENTE ON 04/29/2019 AT 12:58 PM EST DISCLAIMER : THIS IS A VISIT SUMMARY EXTRACTED FROM THE [employer] CHART. IT IS NOT A COPY OF THE [employer] PROGRESS NOTE. CAIO
== END ==
LOC: M PAIN 13:30
PROVIDERS: ATTEND Nurse Practitioner Family
DX: M47.817 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lopathy, lumbosacral region (principal); G62.9 Polyneuropathy, unspecified

== ENCOUNTER → 2019-05-18 | Outpatient (CLI) | payer MEDICARE ==
[~2019-05-18] MED LIST changes: +BUPIVACAINE HCL 0.25% 30 ML VIAL As Ordered ONE; +ISOVUE-M 300 61% 15ML VIAL (Q9967) As Ordered ONE; +LIDOCAINE 1% SDV INJ 30 ML VIAL As Ordered ONE
--- NOTE | 2019-05-18 12:53 | REP ---
Partial lumbar spine series: Three views . History: Injection procedure for pain. 14 seconds of fluoroscopy time is reported. Findings: A sequence of three fluoroscopically obtained last image hold procedural spot radiographs of the lumbar spine document needle position and contrast injection associated with injection procedure. Electronically Signed by Donaldo Pringle MD 05/18/2019 12:44 P
--- NOTE | 2019-05-28 03:32 | ECWPNPC ---
PATIENT NAME: OWEN PHILLIPS : 1945 GENDER: MALE VISIT DATE: 05/18/2019 DISCHARGE DATE: 05/18/19 1300 VISIT LOCKED DATE TIME: PHYSICIAN: KEREN WHYTE MD RESOURCE: KEREN WHYTE MD REASON FOR APPOINTMENT 1. LUMBAR FACET BLOCK HISTORY OF PRESENT ILLNESS HISTORY OF PRESENT ILLNESS: PAIN THE PATIENT DESCRIBES THE PAIN... FALL RISK SCREENING: SCREENING :NO FALLS REPORTED IN THE LAST YEAR CURRENT MEDICATIONS TAKING NUCALA 100 MG/ML SOLUTION PREFILLED SYRINGE DIRECTED SUBCUTANEOUS MONTHLY, NOTES: 04/28/19 TAKING GEMFIBROZIL 600 MG TABLET 1 TABLET ORALLY DAILY, NOTES: 05/17/19 TAKING JANUVIA 100 MG TABLET 1 TABLET ORALLY ONCE A DAY, NOTES: 05/17/19 TAKING LISINOPRIL 20 MG TABLET 1 TABLET ORALLY ONCE A DAY, NOTES: 05/17/19 TAKING PRAVASTATIN 40 20 MG TABLET 1 TAB(S) ORAL DAILY, NOTES: 05/17/19 TAKING AMLODIPINE BESYLATE 10 MG TABLET 1 TABLET ORALLY ONCE A DAY, NOTES: 05/17/19 TAKING VITAMIN B-6 50 MG TABLET 1 TABLET ORALLY ONCE A DAY, NOTES: 05/17/19 TAKING ACETAMINOPHEN 650 MG TABLET 1 TABLET NEEDED ORALLY EVERY 6 HRS, NOTES: NONE LATELY TAKING OMEPRAZOLE 20 MG CAPSULE DELAYED RELEASE 1 CAPSULE ORALLY ONCE A DAY, NOTES: 05/17/19 TAKING IBUPROFEN 600 MG TABLET 1 TABLET WITH FOOD OR MILK NEEDED ORALLY THREE TIMES A DAY, NOTES: 05/17/19 TAKING GABAPENTIN 100 MG CAPSULE 2 CAP ORALLY BID, NOTES: 05/17/19 NOT-TAKING TRAMADOL HCL 50 MG TABLET 1 TABLET NEEDED ORALLY EVERY 8 HRS NOT-TAKING GABAPENTIN 100 MG CAPSULE DIRECTED ORALLY 2 CAP BID NOT-TAKING OXYBUTYNIN CHLORIDE ER 10 MG TABLET EXTENDED RELEASE 24 HOUR 1 TABLET ORALLY ONCE A DAY NOT-TAKING VIAGRA 100 MG TABLET 1 TABLET NEEDED ORALLY ONCE A DAY NOT-TAKING CYMBALTA 30 MG CAPSULE DELAYED RELEASE PARTICLES 1 CAPSULE ORALLY TWICE A DAY NOT-TAKING STENDRA 200 MG TABLET 1 TAB(S) ORALLY TAKE 1 TAB ON FRI/FRI/FRIDAY, NOTES: NOT LATELY MEDICATION LIST REVIEWED AND RECONCILED WITH THE PATIENT PAST MEDICAL HISTORY ARTHRITIS HYPERTENSION HYPERCHOLESTEROLEMIA DM BILATERAL CATARACT REMOVAL NEPHROLITHIASIS(SPONTANOUS PASSAGE) SYNCOPE PROSTATE CA, [id number], VANI 7 (3+4) - S/P PROSTATECTOMY ENVIRONMENTAL ALLERGIES PNEUMONIA ALLERGIES N.K.D.A. SURGICAL HISTORY B/L CATARACT SURGERY 2013 BACK INJECTIONS X 2 12/2012 TRUS 07/23/2013 ROBOTIC ASSISTED RADICAL PROSTATECTOMY AND BILATERAL PELVIC LYMPH NODE DIESSECTION 09/07/13 FAMILY HISTORY FATHER: 73 YRS, STROKE, DIAGNOSED WITH UNSPECIFIED CEREBRAL ARTERY OCCLUSION WITH CEREBRAL INFARCTION MOTHER: 74 YRS, CANCER IN HIP, OTHER MALIGNANT NEOPLASM OF UNSPECIFIED SITE SIBLINGS: ALIVE, 1 BROTHER OLDER AND 1 SISTER YOUNGER LIVING 4 BROTHER(S) , 3 SISTER(S) . 1 SON(S) , 3 DAUGHTER(S) - HEALTHY. NO KNOWN FAMILY HISTORY OF ANY UROLOGICALLY RELATED DISEASES CANCERS. SOCIAL HISTORY GENERAL: TOBACCO USE ARE YOU A:FORMER SMOKER HOW LONG HAS IT BEEN SINCE YOU LAST SMOKED?> 10 YEARS OTHERS AT HOME: SIGNIFICANT OTHER/GIRLFRIEND. 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 LANGUAGE SERBIAN. DOMESTIC VIOLENCE NONE. RECREATIONAL DRUG USE DENIES. EXERCISE: BIKES. LEARNING BARRIERS / SPECIAL NEEDS BARRIERS TO LEARNING?NO HEARING IMPAIRED?NO VISION IMPAIRED?NO COGNITIVELY IMPAIRED?NO READINESS TO LEARN?YES LEARNING PREFERENCES?NO LEARNING CAPABILITIES PRESENT?YES EMOTIONAL BARRIERS?NO SPECIAL DEVICES?NO PAIN CLINIC PFS, CLERGY, PUBLIC HEALTH REFERRALS HAS THE PATIENT BEEN EDUCATED REGARDING HIS/HER PLAN OF CARE?YES HAS THE PATIENT BEEN EDUCATED REGARDING PAIN, THE RISK FOR PAIN, THE IMPORTANCE OF EFFECTIVE PAIN MANAGEMENT, AND THE PAIN ASSESSMENT PROCESS?YES LATEX QUESTIONNAIRE LATEX ALLERGY : HAVE YOU EVER DEVELOPED ANY TYPE OF REACTION AFTER HANDLING LATEX PRODUCTS SUCH RUBBER GLOVES, CONDOMS, DIAPHRAGMS, BALLOONS, SOCKS, OR UNDERWEAR?NO LATEX ALLERGY : HAVE YOU EVER DEVELOPED ANY TYPE OF REACTION DURING OR AFTER DENTAL APPOINTMENT, VAGINAL/RECTAL EXAMINATION, SURGICAL PROCEDURE, OR ANY OTHER EXPOSURE?NO DATE ASKED : 06/09/2018 LATEX RISK : HAVE YOU EVER HAD ANY DIFFICULTY BREATHING OR HIVES AFTER EATING OR HANDLING ANY FRUITS, OR VEGETABLES; SUCH KIWI, BANANAS, STONE FRUITS, OR CHESTNUTSNO LATEX RISK : DO YOU HAVE A PREVIOUS PERSONAL HISTORY OF MORE THAN NINE SURGERIES, SPINA BIFIDA, OR REPEATED CATHERIZATIONS? NO LATEX RISK : ARE YOU FREQUENTLY EXPOSED TO LATEX PRODUCTS IN YOUR OCCUPATION?NO CAFFEINE 2-5/DAY. ADVANCE DIRECTIVE ADVANCE DIRECTIVE DISCUSSED WITH PATIENT:YES PT DOES NOT HAVE HCP AND DECLINES INFO AT THIS TIME. JUDAISM QUAKER. MARITAL STATUS: . ALCOHOL SCREENING POINTS: 0, INTERPRETATION: NEGATIVE. 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 SEXUAL HX HAD SEX IN THE LAST 12 MONTHS (VAGINAL, ORAL, OR ANAL)?: YES, WITH: WOMEN ONLY, USE PROTECTION?: NO, HAVE YOU EVER HAD AN STD?: NO. REVIEWED WITH PT 06/09/18 1411 BVREVIEWED WITH PT 08/27/18 1023 BVREVIEWED WITH PT 09/29/18 1149 NLJPRE PROCEDURE PHONE CALL COMPLETED 03/29/2019 1401 NLJREVIEWED WITH PATIENT 04/14/2019 1358 JS. HOSPITALIZATION/MAJOR DIAGNOSTIC PROCEDURE SYNCOPE CAH 03/14/13 PNEUMONIA 01/22-01/24/17 PNEUMONIA 06/2017 REVIEW OF SYSTEMS REVIEWED BY: PROVIDER: . CONSTITUTIONAL: ANY CHANGE IN YOUR MEDICAL CONDITION? NO . CHILLS NO . FEVER NO . INFECTION: DO YOU HAVE NEW INFECTIONS? NO . DO YOU HAVE HISTORY OF MRSA? NO . MUSCULOSKELETAL: ANY NEW PATTERNS OF PAIN OR NUMBNESS? NO . GASTROENTEROLOGY: ANY NEW CHANGE IN BOWEL CONTROL? NO . GENITOURINARY: ANY NEW CHANGE IN BLADDER CONTROL? NO . IS THERE A CHANCE YOU COULD BE ? NO . HEMATOLOGY/LYMPH: DO YOU TAKE ANY BLOOD THINNERS? (FOR EXAMPLE- COUMADIN, PLAVIX, AGGRENOX, PLATEL, PRADAXA, OR XARELTO) NO . WHEN WAS YOUR LAST DOSE? DATE: TIME: . NEUROLOGY: HAVE YOU FALLEN IN THE PAST 12 MONTHS? NO . ANY NEW EXTREMITY NUMBNESS OR WEAKNESS? NO . CARDIOLOGY: DO YOU HAVE A PACEMAKER OR DEFIBRILLATOR? NO . RESPIRATORY: HAVE YOU BEEN SICK IN THE PAST WEEK? NO . FEVER NO . FLU LIKE SYMPTOMS? NO . COUGH NO . INTEGUMENTARY: DO YOU HAVE ANY RASHES OR OPEN SORES? NO . ALLERGIC/IMMUNO: ARE YOU ALLERGIC TO IV DYE? NO . ANY NEW ALLERGIES? NO . PSYCHIATRIC: DO YOU HAVE THOUGHTS OF HURTING YOURSELF OR SOMEONE ELSE? NO . ARE YOU ABUSED, NEGLECTED, OR IN AN UNSAFE ENVIRONMENT? NO . ENDOCRINOLOGY: ARE YOU DIABETIC? YES . OTHER: DO YOU NEED ANY PRESCRIPTIONS? NO . IF YES, PLEASE LIST: ____ . ANY NEW PROBLEMS WITH YOUR MEDICATIONS? NO . WHEN DID YOU LAST EAT? 05/17/19 1630 . WHEN DID YOU LAST DRINK? 05/17/192129 . WHAT DID YOU LAST DRINK? WATER . NAME OF PERSON DRIVING YOU HOME? BINA . DO YOU HAVE ANY OTHER QUESTIONS OR CONCERNS NO . VITAL SIGNS WT 253.6 LBS, HT 72 IN, BMI 34.39 INDEX, BP 165/75 MM HG, HR 83 /MIN, RR 18 /MIN, TEMP 98.6 F, OXYGEN SAT % 93%, SAFE IN ENV? (Y/N) Y, NA INITIALS AW 1112, REVIEWED BY: EM. ASSESSMENTS SPONDYLOSIS OF LUMBOSACRAL REGION WITHOUT MYELOPATHY OR RADICULOPATHY - M47.817 (PRIMARY) TREATMENT SPONDYLOSIS OF LUMBOSACRAL REGION WITHOUT MYELOPATHY OR RADICULOPATHY SMC FACET BLOCK (PAIN) PROCEDURES PN LUMBAR FACET BLOCK DIAGNOSTIC PRE PROCEDURE DIAGNOSIS LUMBOSACRAL SPONDYLOSIS POST PROCEDURE DIAGNOSIS LUMBOSACRAL SPONDYLOSIS PROCEDURE RIGHT L5-S1 FACET BLOCK DIAGNOSTIC NUMBER [address] KEREN WHYTE MAILS SUPERVISOR NONE ANESTHESIA LOCAL PRE PROCEDURE NOTE THE PATIENT WITH HISTORY OF CHRONIC LOW BACK PAIN. I EVALUATED THE PATIENT AND REVIEWED THE CHART. I WENT OVER THE RISKS, ALTERNATIVES, AND BENEFITS ASSOCIATED WITH THIS PROCEDURE. THE PATIENT WOULD LIKE TO PROCEED AND GAVE CONSENT TO PERFORM THE PROCEDURE. AGREED WITH THE PATIENT WE ARE DOING THIS PROCEDURE TO DETERMINE IF THE PATIENT IS A CANDIDATE FOR A RADIOFREQUENCY ABLATION OF THE FACETS JOINTS. THE PATIENT DENIES UNEXPLAINABLE WEIGHT LOSS, FEVER, CHILLS, OR NEW CHANGES IN URINARY OR BOWEL CONTROL DESCRIPTION OF PROCEDURE THE PATIENT WAS BROUGHT TO THE PROCEDURE ROOM AND PLACED IN THE PRONE POSITION. THE LUMBOSACRAL AREA WAS CLEANED WITH CHLORAPREP SOLUTION AND DRAPED ASEPTICALLY. THE PROCEDURE WAS DONE UNDER STERILE CONDITIONS. I CHECKED LATERALITY AND THE LEVEL WHERE THE PROCEDURE WAS GOING TO BE PERFORMED WITH THE PATIENT AND THE SUPPORTING STAFF AT THE MOMENT OF THE TIME OUT IN THE PROCEDURE ROOM. UNDER FLUOROSCOPIC GUIDANCE, TARGETS WERE SELECTED AT THE INTERSECTION OF THE RIGHT TRANSVERSE PROCESS OF L4, L5 AND ALA OF S1 WITH ITS RESPECTIVE SUPERIOR ARTICULAR PROCESS. LIDOCAINE WAS USED TO NUMB THE SKIN AND THE SUBCUTANEOUS TISSUE BELOW IT. SPINAL NEEDLE, 22-GAUGE WAS ADVANCED UNDER FLUOROSCOPIC GUIDANCE AND FOLLOWING PATIENT FEEDBACK UNTIL THE TARGETS WERE REACHED. POSITION OF THE NEEDLES WAS VERIFIED WITH AP AND LATERAL VIEWS. AFTER PROPER POSITION OF THE NEEDLES WAS ACHIEVED, ISOVUE-M DYE 30% 0.1 ML WAS INJECTED AT EACH SITE SHOWING ADEQUATE SPREAD OF THE DYE. THEN A SOLUTION OF 0.4 ML OF BUPIVACAINE 0.25% WAS INJECTED AT EACH SITE. THERE WAS NO EVIDENCE OF BLOOD, PARESTHESIA OR CEREBROSPINAL FLUID DURING THE PROCEDURE. THE PATIENT WAS SENT TO THE RECOVERY ROOM. THE PATIENT WAS MOVING THE EXTREMITIES AND DOING WELL. THERE WAS NO COMPLICATION DURING THE PROCEDURE. FLUOROSCOPY TIME WAS 14 SECONDS POST PROCEDURE NOTE THE PATIENT WILL DOCUMENT HIS PAIN LEVEL AND RESPONSE TO THIS PROCEDURE EVERY 30 MINUTES. THE PATIENT WILL BE SEEN IN A FOLLOW UP IN THE NEXT FEW WEEKS. FURTHER DETERMINATION FOR HIS CASE WILL BE DONE AT THE NEXT VISIT. INSTRUCTIONS WERE GIVEN, QUESTIONS WERE ANSWERED, AND THE PATIENT EXPRESSED UNDERSTANDING AND AGREED WITH THE PLAN. I, PETRA CORDOVA, DOCUMENTED THE ABOVE INFORMATION ACTING A SCRIBE FOR DR. WHYTE. I HAVE REVIEWED THE ABOVE DOCUMENT, WRITTEN BY PETRA CORDOVA SCRIBE AND I VERIFY THAT IT IS ACCURATE. PROCEDURE CODES 31918 INJ PARAVERT F JNT L/S 1 LEV [id number] RADXPS IN END [id number] PXD DISPOSITION & COMMUNICATION FOLLOW UP 3 WEEKS ELECTRONICALLY SIGNED BY KEREN WHYTE MD, MD ON 05/27/2019 AT 12:36 PM EDT DISCLAIMER : THIS IS A VISIT SUMMARY EXTRACTED FROM THE [employer] CHART. IT IS NOT A COPY OF THE [employer] PROGRESS NOTE. MTDD
== END ==
LOC: M PAIN 11:00
PROVIDERS: ATTEND Anesthesiology
DX: M47.817 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lopathy, lumbosacral region (principal)
CPT/HCPCS: 64493; Q9967

== ENCOUNTER → 2019-06-01 | Outpatient (CLI) | payer MEDICARE ==
[~2019-06-01] MED LIST changes: -BUPIVACAINE HCL 0.25% 30 ML VIAL As Ordered ONE; -ISOVUE-M 300 61% 15ML VIAL (Q9967) As Ordered ONE; -LIDOCAINE 1% SDV INJ 30 ML VIAL As Ordered ONE
--- NOTE | 2019-06-08 02:28 | ECWPNPC ---
PATIENT NAME: OWEN PHILLIPS : 1945 GENDER: MALE VISIT DATE: 06/01/2019 DISCHARGE DATE: 06/01/19 1427 VISIT LOCKED DATE TIME: PHYSICIAN: HARI VIGIL RESOURCE: HARI VIGIL REASON FOR APPOINTMENT 1. LUMBAR ACET FOLLOW UP HISTORY OF PRESENT ILLNESS HISTORY OF PRESENT ILLNESS: PHONE CALL TO PATIENT AND PERMISSION RECEIVED TO DO TELEPHONE VISIT. HAD RIGHT LUMBAR FACET BLOCK DIAGNOSTIC #2 ON 05/18/2019. REPORTING NO RELIEF POST PROCEDURE AND AGGRAVATION IN HIS PAIN FOR 24 HOURS. DESCRIBES 24 HOURS OF BURNING PAIN POSTPROCEDURE. RATING PAIN LEVEL VII/X VAS. BASICALLY AT PRE-PROCEDURE LEVEL. REVIEWED MRI AND DISCUSSED TREATMENT OPTIONS. PAIN THE PATIENT DESCRIBES THE PAIN... FALL RISK SCREENING: SCREENING :NO FALLS REPORTED IN THE LAST YEAR CURRENT MEDICATIONS TAKING NUCALA 100 MG/ML SOLUTION PREFILLED SYRINGE DIRECTED SUBCUTANEOUS MONTHLY TAKING GEMFIBROZIL 600 MG TABLET 1 TABLET ORALLY DAILY TAKING JANUVIA 100 MG TABLET 1 TABLET ORALLY ONCE A DAY TAKING LISINOPRIL 20 MG TABLET 1 TABLET ORALLY ONCE A DAY TAKING PRAVASTATIN 40 20 MG TABLET 1 TAB(S) ORAL DAILY TAKING AMLODIPINE BESYLATE 10 MG TABLET 1 TABLET ORALLY ONCE A DAY TAKING VITAMIN B-6 50 MG TABLET 1 TABLET ORALLY ONCE A DAY TAKING ACETAMINOPHEN 650 MG TABLET 1 TABLET NEEDED ORALLY EVERY 6 HRS TAKING OMEPRAZOLE 20 MG CAPSULE DELAYED RELEASE 1 CAPSULE ORALLY ONCE A DAY TAKING IBUPROFEN 600 MG TABLET 1 TABLET WITH FOOD OR MILK NEEDED ORALLY THREE TIMES A DAY TAKING GABAPENTIN 100 MG CAPSULE 2 CAP ORALLY BID NOT-TAKING TRAMADOL HCL 50 MG TABLET 1 TABLET NEEDED ORALLY EVERY 8 HRS NOT-TAKING GABAPENTIN 100 MG CAPSULE DIRECTED ORALLY 2 CAP BID NOT-TAKING OXYBUTYNIN CHLORIDE ER 10 MG TABLET EXTENDED RELEASE 24 HOUR 1 TABLET ORALLY ONCE A DAY NOT-TAKING VIAGRA 100 MG TABLET 1 TABLET NEEDED ORALLY ONCE A DAY NOT-TAKING CYMBALTA 30 MG CAPSULE DELAYED RELEASE PARTICLES 1 CAPSULE ORALLY TWICE A DAY NOT-TAKING STENDRA 200 MG TABLET 1 TAB(S) ORALLY TAKE 1 TAB ON FRI/FRI/FRIDAY, NOTES: NOT LATELY MEDICATION LIST REVIEWED AND RECONCILED WITH THE PATIENT PAST MEDICAL HISTORY ARTHRITIS HYPERTENSION HYPERCHOLESTEROLEMIA DM BILATERAL CATARACT REMOVAL NEPHROLITHIASIS(SPONTANOUS PASSAGE) SYNCOPE PROSTATE CA, [id number], VANI 7 (3+4) - S/P PROSTATECTOMY ENVIRONMENTAL ALLERGIES PNEUMONIA ALLERGIES N.K.D.A. SURGICAL HISTORY B/L CATARACT SURGERY 2013 BACK INJECTIONS X 2 12/2012 TRUS 07/23/2013 ROBOTIC ASSISTED RADICAL PROSTATECTOMY AND BILATERAL PELVIC LYMPH NODE DIESSECTION 09/07/13 FAMILY HISTORY FATHER: 73 YRS, STROKE, DIAGNOSED WITH UNSPECIFIED CEREBRAL ARTERY OCCLUSION WITH CEREBRAL INFARCTION MOTHER: 74 YRS, CANCER IN HIP, OTHER MALIGNANT NEOPLASM OF UNSPECIFIED SITE SIBLINGS: ALIVE, 1 BROTHER OLDER AND 1 SISTER YOUNGER LIVING 4 BROTHER(S) , 3 SISTER(S) . 1 SON(S) , 3 DAUGHTER(S) - HEALTHY. NO KNOWN FAMILY HISTORY OF ANY UROLOGICALLY RELATED DISEASES CANCERS. SOCIAL HISTORY GENERAL: TOBACCO USE ARE YOU A:FORMER SMOKER HOW LONG HAS IT BEEN SINCE YOU LAST SMOKED?> 10 YEARS OTHERS AT HOME: SIGNIFICANT OTHER/GIRLFRIEND. 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 LANGUAGE SURINAMESE. DOMESTIC VIOLENCE NONE. NEW PATIENT PAIN DIARY PATIENT DESCRIBES PAIN :ACHING, HAVE IT ALL THE TIME FROM 0-10, WHAT LEVEL IS YOUR PAIN TODAY?8 PRECIPITATING FACTORS SITTING ALLEVIATING FACTORS ACTIVITY, WALKING IMPACT ON FUNCTION YES RECREATIONAL DRUG USE DENIES. EXERCISE: BIKES. LEARNING BARRIERS / SPECIAL NEEDS BARRIERS TO LEARNING?NO HEARING IMPAIRED?NO VISION IMPAIRED?NO COGNITIVELY IMPAIRED?NO READINESS TO LEARN?YES LEARNING PREFERENCES?NO LEARNING CAPABILITIES PRESENT?YES EMOTIONAL BARRIERS?NO SPECIAL DEVICES?NO PAIN CLINIC PFS, CLERGY, PUBLIC HEALTH REFERRALS HAS THE PATIENT BEEN EDUCATED REGARDING HIS/HER PLAN OF CARE?YES HAS THE PATIENT BEEN EDUCATED REGARDING PAIN, THE RISK FOR PAIN, THE IMPORTANCE OF EFFECTIVE PAIN MANAGEMENT, AND THE PAIN ASSESSMENT PROCESS?YES LATEX QUESTIONNAIRE LATEX ALLERGY : HAVE YOU EVER DEVELOPED ANY TYPE OF REACTION AFTER HANDLING LATEX PRODUCTS SUCH RUBBER GLOVES, CONDOMS, DIAPHRAGMS, BALLOONS, SOCKS, OR UNDERWEAR?NO LATEX ALLERGY : HAVE YOU EVER DEVELOPED ANY TYPE OF REACTION DURING OR AFTER DENTAL APPOINTMENT, VAGINAL/RECTAL EXAMINATION, SURGICAL PROCEDURE, OR ANY OTHER EXPOSURE?NO DATE ASKED : 06/09/2018 LATEX RISK : HAVE YOU EVER HAD ANY DIFFICULTY BREATHING OR HIVES AFTER EATING OR HANDLING ANY FRUITS, OR VEGETABLES; SUCH KIWI, BANANAS, STONE FRUITS, OR CHESTNUTSNO LATEX RISK : DO YOU HAVE A PREVIOUS PERSONAL HISTORY OF MORE THAN NINE SURGERIES, SPINA BIFIDA, OR REPEATED CATHERIZATIONS? NO LATEX RISK : ARE YOU FREQUENTLY EXPOSED TO LATEX PRODUCTS IN YOUR OCCUPATION?NO CAFFEINE 2-5/DAY. ADVANCE DIRECTIVE ADVANCE DIRECTIVE DISCUSSED WITH PATIENT:YES PT DOES NOT HAVE HCP AND DECLINES INFO AT THIS TIME. QUAKER JEWISH. MARITAL STATUS: . ALCOHOL SCREENING POINTS: 0, INTERPRETATION: NEGATIVE. 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 SEXUAL HX HAD SEX IN THE LAST 12 MONTHS (VAGINAL, ORAL, OR ANAL)?: YES, WITH: WOMEN ONLY, USE PROTECTION?: NO, HAVE YOU EVER HAD AN STD?: NO. REVIEWED WITH PT 06/09/18 1411 BVREVIEWED WITH PT 08/27/18 1023 BVREVIEWED WITH PT 09/29/18 1149 NLJPRE PROCEDURE PHONE CALL COMPLETED 03/29/2019 1401 NLJREVIEWED WITH PATIENT 04/14/2019 1358 JS. HOSPITALIZATION/MAJOR DIAGNOSTIC PROCEDURE SYNCOPE CAH 03/14/13 PNEUMONIA 01/22-01/24/17 PNEUMONIA 06/2017 REVIEW OF SYSTEMS REVIEWED BY: PROVIDER: HARI LOWERY . CONSTITUTIONAL: ANY CHANGE IN YOUR MEDICAL CONDITION? NO . CHILLS NO . FEVER NO . INFECTION: DO YOU HAVE NEW INFECTIONS? NO . DO YOU HAVE HISTORY OF MRSA? NO . MUSCULOSKELETAL: ANY NEW PATTERNS OF PAIN OR NUMBNESS? DEPENDS ON ACTIVITY LEVEL . GASTROENTEROLOGY: ANY NEW CHANGE IN BOWEL CONTROL? NO . GENITOURINARY: ANY NEW CHANGE IN BLADDER CONTROL? NO . IS THERE A CHANCE YOU COULD BE ? NO . HEMATOLOGY/LYMPH: DO YOU TAKE ANY BLOOD THINNERS? (FOR EXAMPLE- COUMADIN, PLAVIX, AGGRENOX, PLATEL, PRADAXA, OR XARELTO) NO . WHEN WAS YOUR LAST DOSE? DATE: TIME: . NEUROLOGY: HAVE YOU FALLEN IN THE PAST 12 MONTHS? NO . ANY NEW EXTREMITY NUMBNESS OR WEAKNESS? NO . CARDIOLOGY: DO YOU HAVE A PACEMAKER OR DEFIBRILLATOR? NO . RESPIRATORY: HAVE YOU BEEN SICK IN THE PAST WEEK? NO . FEVER NO . FLU LIKE SYMPTOMS? NO . COUGH NO . INTEGUMENTARY: DO YOU HAVE ANY RASHES OR OPEN SORES? NO . ALLERGIC/IMMUNO: ARE YOU ALLERGIC TO IV DYE? NO . ANY NEW ALLERGIES? NO . PSYCHIATRIC: DO YOU HAVE THOUGHTS OF HURTING YOURSELF OR SOMEONE ELSE? NO . ARE YOU ABUSED, NEGLECTED, OR IN AN UNSAFE ENVIRONMENT? NO . ENDOCRINOLOGY: ARE YOU DIABETIC? YES . OTHER: DO YOU NEED ANY PRESCRIPTIONS? NO . IF YES, PLEASE LIST: ____ . ANY NEW PROBLEMS WITH YOUR MEDICATIONS? NO . WHEN DID YOU LAST EAT? ____ . WHEN DID YOU LAST DRINK? ____ . WHAT DID YOU LAST DRINK? ____ . NAME OF PERSON DRIVING YOU HOME? ____ . DO YOU HAVE ANY OTHER QUESTIONS OR CONCERNS NO . 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 DISPOSITION & COMMUNICATION FOLLOW UP 2 MONTHS (REASON: LBP) ELECTRONICALLY SIGNED BY BEVERLEY PUENTE ON 06/07/2019 AT 11:39 AM EDT DISCLAIMER : THIS IS A VISIT SUMMARY EXTRACTED FROM THE [employer] CHART. IT IS NOT A COPY OF THE [employer] PROGRESS NOTE. CAIO
== END ==
LOC: M PAIN 12:00
PROVIDERS: ATTEND Nurse Practitioner Family
DX: M47.817 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lopathy, lumbosacral region (principal); I10 Essential (primary) hypertension; E11.9 Type 2 diabetes mellitus without complications; Z79.84 Long term (current) use of oral hypoglycemic drugs; Z79.899 Other long term (current) drug therapy; Z87.891 Personal history of nicotine dependence

== ENCOUNTER → 2019-06-17 | Outpatient (CLI) | payer MEDICARE | LOC: M WUC 16:10 | PROVIDERS: ATTEND Nurse Practitioner Women's Health | DX: Z85.46 Personal history of malignant neoplasm of prostate (principal) ==

== ENCOUNTER → 2019-07-30 | Outpatient (CLI) | payer MEDICARE ==
--- NOTE | 2019-08-04 03:15 | ECWPNPC ---
PATIENT NAME: OWEN PHILLIPS : 1945 GENDER: MALE VISIT DATE: 07/30/2019 DISCHARGE DATE: 07/30/19 1439 VISIT LOCKED DATE TIME: PHYSICIAN: HARI VIGIL RESOURCE: HARI VIGIL REASON FOR APPOINTMENT 1. LOW BACK HISTORY OF PRESENT ILLNESS GENERAL: HERE FOR FOLLOW-UP OF CHRONIC LOW BACK PAIN. HE FAILED DIAGNOSTIC LUMBAR FACET BLOCK TRIAL FOR RADIOFREQUENCY. STATES LOWER BACK PAIN HAS INCREASED LATELY. HAS RESPONDED WELL TO LUMBAR THERAPEUTIC FACET BLOCK IN THE PAST. REVIEWED MRI OF THE LS-SPINE AND DISCUSSED TREATMENT OPTIONS. -. PAIN SCREENING: PATIENT HAS A COMPLAINT OF ACUTE OR CHRONIC PAIN :YES LOCATION OF PAIN:LOW BACK INTENSITY OF PAIN (SCALE OF 1 TO 10):7 WHAT DOES YOUR PAIN FEEL LIKE:CONTINOUS, TENDER, THROBBING, SORE DURATION:CONTINOUS, CONSTANT, ALL DAY, MAINLY DURING THE NIGHT PAIN IS INCREASED BY:ACTIVITIES, PROLONGED STANDING PAIN IS DECREASED BY:USE OF PAIN MEDICATIONS PLAN/GOALS/TREATMENT/INTERVENTION/FOLLOW UP:SEE PLAN FALL RISK SCREENING: SCREENING :NO FALLS REPORTED IN THE LAST YEAR DEPRESSION SCREENING: PHQ-2 (2015 EDITION) LITTLE INTEREST OR PLEASURE IN DOING THINGS?NOT AT ALL FEELING DOWN, DEPRESSED, OR HOPELESS?NOT AT ALL TOTAL SCORE0 PAIN CENTER INTAKE QUESTIONS: DO YOU HAVE A HISTORY OF MRSA? :NO DO YOU TAKE A BLOOD THINNERS? :NO DO YOU HAVE ANY BLEEDING DISORDERS? :NO ANY NEW NUMBNESS OR WEAKNESS IN YOUR LEGS OR ARMS? :NO ANY PACEMAKER,DEFIBRILLATOR, OR DORSAL COLUMN STIMULATOR? :NO DO YOU HAVE ANY RASHES OR OPEN SORES? :NO ARE YOU ALLERGIC TO IV DYE? :NO ARE YOU DIABETIC? :YES BORDERLINE ANY NEW PROBLEMS WITH YOUR MEDICATIONS? :NO HAVE YOU RECEIVED A VACCINE IN THE PAST 30 DAYS? :NO DO YOU PLAN TO RECEIVE A VACCINE IN THE NEXT 21 DAYS? :NO DO YOU NEED ANY PRESCRIPTION? :YES GABAPENTIN DO YOU TAKE ANY IMMUNOSUPPRESSIVE MEDICATIONS? :NO NURSING NOTE: -. CURRENT MEDICATIONS TAKING NUCALA 100 MG/ML SOLUTION PREFILLED SYRINGE DIRECTED SUBCUTANEOUS MONTHLY TAKING GEMFIBROZIL 600 MG TABLET 1 TABLET ORALLY DAILY TAKING JANUVIA 100 MG TABLET 1 TABLET ORALLY ONCE A DAY TAKING LISINOPRIL 20 MG TABLET 1 TABLET ORALLY ONCE A DAY TAKING PRAVASTATIN 40 20 MG TABLET 1 TAB(S) ORAL DAILY TAKING AMLODIPINE BESYLATE 10 MG TABLET 1 TABLET ORALLY ONCE A DAY TAKING VITAMIN B-6 50 MG TABLET 1 TABLET ORALLY ONCE A DAY TAKING ACETAMINOPHEN 650 MG TABLET 1 TABLET NEEDED ORALLY EVERY 6 HRS TAKING OMEPRAZOLE 20 MG CAPSULE DELAYED RELEASE 1 CAPSULE ORALLY ONCE A DAY TAKING IBUPROFEN 600 MG TABLET 1 TABLET WITH FOOD OR MILK NEEDED ORALLY THREE TIMES A DAY TAKING GABAPENTIN 100 MG CAPSULE 2 CAP ORALLY BID TAKING OXYBUTYNIN CHLORIDE ER 10 MG TABLET EXTENDED RELEASE 24 HOUR 1 TABLET ORALLY ONCE A DAY MEDICATION LIST REVIEWED AND RECONCILED WITH THE PATIENT PAST MEDICAL HISTORY ARTHRITIS HYPERTENSION HYPERCHOLESTEROLEMIA DM BILATERAL CATARACT REMOVAL NEPHROLITHIASIS(SPONTANOUS PASSAGE) SYNCOPE PROSTATE CA, [id number], VANI 7 (3+4) - S/P PROSTATECTOMY ENVIRONMENTAL ALLERGIES PNEUMONIA ALLERGIES N.K.D.A. SURGICAL HISTORY B/L CATARACT SURGERY 2012 BACK INJECTIONS X 2 12/2012 TRUS 07/23/2013 ROBOTIC ASSISTED RADICAL PROSTATECTOMY AND BILATERAL PELVIC LYMPH NODE DIESSECTION 09/07/13 FAMILY HISTORY FATHER: 73 YRS, STROKE, DIAGNOSED WITH UNSPECIFIED CEREBRAL ARTERY OCCLUSION WITH CEREBRAL INFARCTION MOTHER: 74 YRS, CANCER IN HIP, OTHER MALIGNANT NEOPLASM OF UNSPECIFIED SITE SIBLINGS: ALIVE, 1 BROTHER OLDER AND 1 SISTER YOUNGER LIVING 4 BROTHER(S) , 3 SISTER(S) . 1 SON(S) , 3 DAUGHTER(S) - HEALTHY. NO KNOWN FAMILY HISTORY OF ANY UROLOGICALLY RELATED DISEASES CANCERS. SOCIAL HISTORY GENERAL: TOBACCO USE ARE YOU A:FORMER SMOKER HOW LONG HAS IT BEEN SINCE YOU LAST SMOKED?> 10 YEARS LATEX QUESTIONNAIRE LATEX ALLERGY : HAVE YOU EVER DEVELOPED ANY TYPE OF REACTION AFTER HANDLING LATEX PRODUCTS SUCH RUBBER GLOVES, CONDOMS, DIAPHRAGMS, BALLOONS, SOCKS, OR UNDERWEAR?NO LATEX ALLERGY : HAVE YOU EVER DEVELOPED ANY TYPE OF REACTION DURING OR AFTER DENTAL APPOINTMENT, VAGINAL/RECTAL EXAMINATION, SURGICAL PROCEDURE, OR ANY OTHER EXPOSURE?NO DATE ASKED : 06/09/2018 LATEX RISK : HAVE YOU EVER HAD ANY DIFFICULTY BREATHING OR HIVES AFTER EATING OR HANDLING ANY FRUITS, OR VEGETABLES; SUCH KIWI, BANANAS, STONE FRUITS, OR CHESTNUTSNO LATEX RISK : DO YOU HAVE A PREVIOUS PERSONAL HISTORY OF MORE THAN NINE SURGERIES, SPINA BIFIDA, OR REPEATED CATHERIZATIONS? NO LATEX RISK : ARE YOU FREQUENTLY EXPOSED TO LATEX PRODUCTS IN YOUR OCCUPATION?NO ALCOHOL SCREENING POINTS: 0, INTERPRETATION: NEGATIVE. RECREATIONAL DRUG USE DENIES. CAFFEINE 2-5/DAY. SEXUAL HX HAD SEX IN THE LAST 12 MONTHS (VAGINAL, ORAL, OR ANAL)?: YES, WITH: WOMEN ONLY, USE PROTECTION?: NO, HAVE YOU EVER HAD AN STD?: NO. [employer]. LANGUAGE UKRAINIAN. LEARNING BARRIERS / SPECIAL NEEDS BARRIERS TO LEARNING?NO HEARING IMPAIRED?NO VISION IMPAIRED?NO COGNITIVELY IMPAIRED?NO READINESS TO LEARN?YES LEARNING PREFERENCES?NO LEARNING CAPABILITIES PRESENT?YES EMOTIONAL BARRIERS?NO SPECIAL DEVICES?NO DOMESTIC VIOLENCE NONE. 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 EXERCISE: BIKES. MARITAL STATUS: . OTHERS AT HOME: SIGNIFICANT OTHER/GIRLFRIEND. NEW PATIENT PAIN DIARY PATIENT DESCRIBES PAIN :ACHING, HAVE IT ALL THE TIME FROM 0-10, WHAT LEVEL IS YOUR PAIN TODAY?8 PRECIPITATING FACTORS SITTING ALLEVIATING FACTORS ACTIVITY, WALKING IMPACT ON FUNCTION YES PAIN CLINIC PFS, CLERGY, PUBLIC HEALTH REFERRALS HAS THE PATIENT BEEN EDUCATED REGARDING HIS/HER PLAN OF CARE?YES HAS THE PATIENT BEEN EDUCATED REGARDING PAIN, THE RISK FOR PAIN, THE IMPORTANCE OF EFFECTIVE PAIN MANAGEMENT, AND THE PAIN ASSESSMENT PROCESS?YES ADVANCE DIRECTIVE ADVANCE DIRECTIVE DISCUSSED WITH PATIENT:YES PT DOES NOT HAVE HCP AND DECLINES INFO AT THIS TIME. HOSPITALIZATION/MAJOR DIAGNOSTIC PROCEDURE SYNCOPE CAH 03/14/13 PNEUMONIA 01/22-01/24/17 PNEUMONIA 06/2017 REVIEW OF SYSTEMS CONSTITUTIONAL: ANY RECENT FEVER OR ILLNESS NO . CHILLS NO . GASTROENTEROLOGY: BOWEL INCONTINENCE NO . ANY NEW CHANGE IN BOWEL CONTROL? NO . ABDOMINAL PAIN NO . CONSTIPATION NO . GENITOURINARY: ANY NEW CHANGE IN BLADDER CONTROL? NO . IS THERE A CHANCE YOU COULD BE ? NO . URINARY INCONTINENCE NO . CARDIOLOGY: CHEST PRESSURE NO . CHEST PAIN NO . RESPIRATORY: COUGH NO . SHORTNESS OF BREATH NO . VITAL SIGNS WT 253.2 LBS, HT 72 IN, BMI 34.34 INDEX, BP 139/65 MM HG, HR 94 /MIN, RR 20 /MIN, TEMP 98.3 F, OXYGEN SAT % 97%, SAFE IN ENV? 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 EXAMINATION GENERAL EXAMINATION: GENERAL AWAKE,ALERT ,PLEASANT . PSYCH AFFECT NORMAL . LUNGS: LUNG ALVARADO ARE CLEAR TO AUSCULTATION BILATERALLY. GOOD MOVEMENT OF AIR . HEART: S1, S2 IN A REGULAR RATE AND RHYTHM. NO SIGNIFICANT MURMURS, RUBS OR GALLOPS NOTED . LUMBAR:PALPATION:TENDER OVER BILAT. L4/5-L5/S1 LUMBAR FACETS WITH FACET LOADING.. DIAGNOSTIC TESTS REVIEWED MRI L/S SPINE-04/21/18. 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 PROCEDURE CODES FA211 ESTABILISHED PATIENT LOCATED WITHIN [facility] CHARGE DISPOSITION & COMMUNICATION FOLLOW UP POST (REASON: BILATERAL L4-5, L5- THERAPEUTIC LUMBAR FACET BLOCK) ELECTRONICALLY SIGNED BY BEVERLEY PUENTE ON 08/03/2019 AT 08:35 AM EDT DISCLAIMER : THIS IS A VISIT SUMMARY EXTRACTED FROM THE [employer] CHART. IT IS NOT A COPY OF THE [employer] PROGRESS NOTE. CAIO
== END ==
LOC: M PAIN 13:45
PROVIDERS: ATTEND Nurse Practitioner Family
DX: M47.817 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lopathy, lumbosacral region (principal)

== ENCOUNTER → 2019-08-08 | Outpatient (CLI) | payer MEDICARE | LOC: M LABSMTC 10:04 | PROVIDERS: ATTEND Anesthesiology | DX: Z03.818 Encounter for observation for suspected exposure to other biological agents ruled out (principal); Z11.59 Encounter for screening for other viral diseases | CPT/HCPCS: C9803; U0003 ==

== ENCOUNTER → 2019-08-11 | Outpatient (CLI) | payer MEDICARE ==
[~2019-08-11] MED LIST changes: +BUPIVACAINE HCL 0.25% 30ML VIAL As Ordered ONE; +ISOVUE-M 300 61% 15ML VIAL As Ordered ONE; +LIDOCAINE 1% SDV 30ML VIAL As Ordered ONE; +dexameTHASONE 10MG/1ML VIAL PRES.FREE (J1100 PER 1MG) As Ordered ONE; +diazePAM 5 MG TAB As Ordered ONE; +oxyCODONE 5MG TAB As Ordered ONE
--- NOTE | 2019-08-12 00:51 | REP ---
C-ARM VIEWS LOWER LUMBAR SPINE: CLINICAL HISTORY: Pain. Two C-arm views lower lumbar spine performed during bilateral facet injection by Dr. Richard. Two needles are seen along the bilateral lower lumbar facet joints. 29 seconds fluoroscopy time utilized. Electronically Signed by Kwabena Fox MD 08/13/2019 09:19 A
--- NOTE | 2019-08-13 00:28 | ECWPNPC ---
PATIENT NAME: OWEN PHILLIPS : 1945 GENDER: MALE VISIT DATE: 08/11/2019 DISCHARGE DATE: 08/11/19 161 VISIT LOCKED DATE TIME: PHYSICIAN: KEREN WHYTE MD RESOURCE: KEREN WHYTE MD REASON FOR APPOINTMENT 1. BILATERAL L4-5, L5-S1 THERAPEUTIC LUMBAR FACET BLOCK HISTORY OF PRESENT ILLNESS GENERAL: -. FALL RISK SCREENING: SCREENING :NO FALLS REPORTED IN THE LAST YEAR PAIN SCREENING: PATIENT HAS A COMPLAINT OF ACUTE OR CHRONIC PAIN :YES LOCATION OF PAIN:UPPER BACK, MID BACK, LOW BACK INTENSITY OF PAIN (SCALE OF 1 TO 10):8 WHAT DOES YOUR PAIN FEEL LIKE:ACHING, INTERMITTENT, SHARP PAIN IS INCREASED BY:PROLONGED STANDING WALKING PAIN IS DECREASED BY:SITTING NURSING NOTE: -. PAIN CENTER INTAKE QUESTIONS: DO YOU HAVE A HISTORY OF MRSA? :NO DO YOU TAKE A BLOOD THINNERS? :NO DO YOU HAVE ANY BLEEDING DISORDERS? :NO ANY NEW NUMBNESS OR WEAKNESS IN YOUR LEGS OR ARMS? :NO ANY PACEMAKER,DEFIBRILLATOR, OR DORSAL COLUMN STIMULATOR? :NO DO YOU HAVE ANY RASHES OR OPEN SORES? :NO ARE YOU ALLERGIC TO IV DYE? :NO ARE YOU DIABETIC? :NO BORDERLINE ANY NEW PROBLEMS WITH YOUR MEDICATIONS? :NO HAVE YOU RECEIVED A VACCINE IN THE PAST 30 DAYS? :NO DO YOU PLAN TO RECEIVE A VACCINE IN THE NEXT 21 DAYS? :NO DO YOU TAKE ANY IMMUNOSUPPRESSIVE MEDICATIONS? :NO ANY HISTORY OF SEIZURES? :NO ANY HISTORY OF CARDIAC ISSUES OR EVENTS? :NO DO YOU HAVE SLEEP APNEA? : NO. ANY RECENT HEAD INJURY? :NO DO YOU HAVE ANY NEW INFECTIONS? :NO IS THERE A CHANCE YOU COULD BE ? :NO ARE YOU BREAST FEEDING? :NO WHEN DID YOU LAST EAT? : -08/10/192199 WHEN DID YOU LAST DRINK? : -08/11/2019 0930 WHAT DID YOU LAST DRINK? : -WATER NAME OF PERSON DRIVING YOU HOME? : -BINA DO YOU HAVE ANY OTHER QUESTIONS OR CONCERNS? : - CURRENT MEDICATIONS TAKING NUCALA 100 MG/ML SOLUTION PREFILLED SYRINGE DIRECTED SUBCUTANEOUS MONTHLY, NOTES: MAY TAKING GEMFIBROZIL 600 MG TABLET 1 TABLET ORALLY DAILY, NOTES: 08/09 2299 TAKING JANUVIA 100 MG TABLET 1 TABLET ORALLY ONCE A DAY, NOTES: 08/09 2299 TAKING LISINOPRIL 20 MG TABLET 1 TABLET ORALLY ONCE A DAY, NOTES: 08/09 2299 TAKING PRAVASTATIN 40 20 MG TABLET 1 TAB(S) ORAL DAILY, NOTES: 08/09 2299 TAKING AMLODIPINE BESYLATE 10 MG TABLET 1 TABLET ORALLY ONCE A DAY, NOTES: 08/09 2299 TAKING VITAMIN B-6 50 MG TABLET 1 TABLET ORALLY ONCE A DAY, NOTES: 08/09 08 TAKING ACETAMINOPHEN 650 MG TABLET 1 TABLET NEEDED ORALLY EVERY 6 HRS, NOTES: > 1 MONTH TAKING OMEPRAZOLE 20 MG CAPSULE DELAYED RELEASE 1 CAPSULE ORALLY ONCE A DAY, NOTES: 08/10 899 TAKING IBUPROFEN 600 MG TABLET 1 TABLET WITH FOOD OR MILK NEEDED ORALLY THREE TIMES A DAY, NOTES: 08/09 2299 TAKING GABAPENTIN 100 MG CAPSULE 2 CAP ORALLY BID, NOTES: 08/09 2299 TAKING OXYBUTYNIN CHLORIDE ER 10 MG TABLET EXTENDED RELEASE 24 HOUR 1 TABLET ORALLY ONCE A DAY, NOTES: 08/09 2299 MEDICATION LIST REVIEWED AND RECONCILED WITH THE PATIENT PAST MEDICAL HISTORY ARTHRITIS HYPERTENSION HYPERCHOLESTEROLEMIA DM BILATERAL CATARACT REMOVAL NEPHROLITHIASIS(SPONTANOUS PASSAGE) SYNCOPE PROSTATE CA, [id number], VANI 7 (3+4) - S/P PROSTATECTOMY ENVIRONMENTAL ALLERGIES PNEUMONIA ALLERGIES N.K.D.A. SURGICAL HISTORY B/L CATARACT SURGERY 2013 BACK INJECTIONS X 2 12/2012 TRUS 07/23/2013 ROBOTIC ASSISTED RADICAL PROSTATECTOMY AND BILATERAL PELVIC LYMPH NODE DIESSECTION 09/07/13 FAMILY HISTORY FATHER: 73 YRS, STROKE, DIAGNOSED WITH UNSPECIFIED CEREBRAL ARTERY OCCLUSION WITH CEREBRAL INFARCTION MOTHER: 74 YRS, CANCER IN HIP, OTHER MALIGNANT NEOPLASM OF UNSPECIFIED SITE SIBLINGS: ALIVE, 1 BROTHER OLDER AND 1 SISTER YOUNGER LIVING 4 BROTHER(S) , 3 SISTER(S) . 1 SON(S) , 3 DAUGHTER(S) - HEALTHY. NO KNOWN FAMILY HISTORY OF ANY UROLOGICALLY RELATED DISEASES CANCERS. SOCIAL HISTORY GENERAL: TOBACCO USE ARE YOU A:FORMER SMOKER HOW LONG HAS IT BEEN SINCE YOU LAST SMOKED?> 10 YEARS LATEX QUESTIONNAIRE LATEX ALLERGY : HAVE YOU EVER DEVELOPED ANY TYPE OF REACTION AFTER HANDLING LATEX PRODUCTS SUCH RUBBER GLOVES, CONDOMS, DIAPHRAGMS, BALLOONS, SOCKS, OR UNDERWEAR?NO LATEX ALLERGY : HAVE YOU EVER DEVELOPED ANY TYPE OF REACTION DURING OR AFTER DENTAL APPOINTMENT, VAGINAL/RECTAL EXAMINATION, SURGICAL PROCEDURE, OR ANY OTHER EXPOSURE?NO DATE ASKED : 06/09/2018 LATEX RISK : HAVE YOU EVER HAD ANY DIFFICULTY BREATHING OR HIVES AFTER EATING OR HANDLING ANY FRUITS, OR VEGETABLES; SUCH KIWI, BANANAS, STONE FRUITS, OR CHESTNUTSNO LATEX RISK : DO YOU HAVE A PREVIOUS PERSONAL HISTORY OF MORE THAN NINE SURGERIES, SPINA BIFIDA, OR REPEATED CATHERIZATIONS? NO LATEX RISK : ARE YOU FREQUENTLY EXPOSED TO LATEX PRODUCTS IN YOUR OCCUPATION?NO ALCOHOL SCREENING POINTS: 0, INTERPRETATION: NEGATIVE. RECREATIONAL DRUG USE DENIES. CAFFEINE 2-5/DAY. SEXUAL HX HAD SEX IN THE LAST 12 MONTHS (VAGINAL, ORAL, OR ANAL)?: YES, WITH: WOMEN ONLY, USE PROTECTION?: NO, HAVE YOU EVER HAD AN STD?: NO. TAOISM BUDDHIST. LANGUAGE BRAZILIAN. LEARNING BARRIERS / SPECIAL NEEDS BARRIERS TO LEARNING?NO HEARING IMPAIRED?NO VISION IMPAIRED?NO COGNITIVELY IMPAIRED?NO READINESS TO LEARN?YES LEARNING PREFERENCES?NO LEARNING CAPABILITIES PRESENT?YES EMOTIONAL BARRIERS?NO SPECIAL DEVICES?NO DOMESTIC VIOLENCE NONE. 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 EXERCISE: BIKES. MARITAL STATUS: . OTHERS AT HOME: SIGNIFICANT OTHER/GIRLFRIEND. NEW PATIENT PAIN DIARY PATIENT DESCRIBES PAIN :ACHING, HAVE IT ALL THE TIME FROM 0-10, WHAT LEVEL IS YOUR PAIN TODAY?8 PRECIPITATING FACTORS SITTING ALLEVIATING FACTORS ACTIVITY, WALKING IMPACT ON FUNCTION YES PAIN CLINIC PFS, CLERGY, PUBLIC HEALTH REFERRALS HAS THE PATIENT BEEN EDUCATED REGARDING HIS/HER PLAN OF CARE?YES HAS THE PATIENT BEEN EDUCATED REGARDING PAIN, THE RISK FOR PAIN, THE IMPORTANCE OF EFFECTIVE PAIN MANAGEMENT, AND THE PAIN ASSESSMENT PROCESS?YES ADVANCE DIRECTIVE ADVANCE DIRECTIVE DISCUSSED WITH PATIENT:YES PT DOES NOT HAVE HCP AND DECLINES INFO AT THIS TIME. HOSPITALIZATION/MAJOR DIAGNOSTIC PROCEDURE SYNCOPE CAH 03/14/13 PNEUMONIA 01/22-01/24/17 PNEUMONIA 06/2017 VITAL SIGNS WT 251.4 LBS, HT 72 IN, BMI 34.09 INDEX, BP 136/63 MM HG, HR 81 /MIN, RR 18 /MIN, TEMP 98.4 F, OXYGEN SAT % 93%, NA INITIALS AW 1213. ASSESSMENTS SPONDYLOSIS OF LUMBAR REGION WITHOUT MYELOPATHY OR RADICULOPATHY - M47.816 (PRIMARY) SPONDYLOSIS OF LUMBOSACRAL REGION WITHOUT MYELOPATHY OR RADICULOPATHY - M47.817 TREATMENT SPONDYLOSIS OF LUMBOSACRAL REGION WITHOUT MYELOPATHY OR RADICULOPATHY [facility] FACET BLOCK (PAIN)[id number] PROCEDURES PAIN NURSING RECORD PRE-PROCEDURE IV SITE N/A, PRE-PROCEDURE ORAL MEDICATIONS VALIUM 5 MG AND OXYCODONE 5 MG GIVEN AT 1445 LAS : LUNGS CLEAR BILATERALLY, HEART SOUNDS REGULAR PROCEDURE IN ROOM 1520, PHYSICIAN IN ROOM 1537, START 1542, FINISH 1547, PHYSICIAN OUT OF ROOM 1550, OUT OF ROOM 1600, STEROID DEXAMETHASONE 20MG, O2 RA, ECG NSR, PATIENT SHIELDED YES, SAFETY STRAP YES, PREP CHLORAPROLIVERIO FINNEY RN BSN, IV INFUSED N/A, DRESSING TEGADERM LOC: 1. ALERT, ORIENTED RESP: 1. REGULAR, NO DYSPNEA COLOR: 1. PINK SKIN: 1. WARM, DRY POSITION: 1. PRONE VITALS: 68, 16, 96%, 120/68, TATIANA FINNEY 08/11/2019 3:39:14 PM > 69, 18, 95%, 126/66, TATIANA FINNEY 08/11/2019 3:45:38 PM > 69, 18, 94%, 139/75, TATIANA FINNEY 08/11/2019 4:05:15 PM > DISCHARGE: POST PAIN 06/10, DRESSING SITE CLEAN AND DRY, IV N/A, GAIT STEADY, TEACHING COMPLETED, PATIENT ACKNOWLEDGES KYLER FINNEY RN BSN, PATIENT DISCHARGED AT 1610 PN LUMBAR FACET BLOCK THERAPEUTIC PRE PROCEDURE DIAGNOSIS LUMBAR SPONDYLOSIS, LUMBOSACRAL SPONDYLOSIS POST PROCEDURE DIAGNOSIS LUMBAR SPONDYLOSIS, LUMBOSACRAL SPONDYLOSIS PROCEDURE BILATERAL L4-L5 AND BILATERAL L5-S1 LUMBAR FACET THERAPEUTIC BLOCK SURGEON DR. KEREN WHYTE CALL CENTER SUPPORT REPRESENTATIVE NONE ANESTHESIA LOCAL PRE PROCEDURE NOTE THE PATIENT HAS A HISTORY OF CHRONIC LOW BACK PAIN. I EVALUATED THE PATIENT AND REVIEWED THE CHART. I WENT OVER THE RISKS, ALTERNATIVES, AND BENEFITS ASSOCIATED WITH THIS PROCEDURE. I DISCUSSED THAT THE USE OF STEROIDS MAY CONTRIBUTE TO IMMUNOSUPPRESSION OF THE PATIENT'S BODY AGAINST INFECTIONS SUCH THE DOBBS VIRUS, COVID-19. THE PATIENT IS AWARE OF THE POTENTIAL COMPLICATIONS ASSOCIATED WITH AN INFECTION OF THIS VIRUS INCLUDING . THE PATIENT WOULD LIKE TO PROCEED AND GIVES CONSENT TO PERFORM THE PROCEDURE. THE PATIENT DENIES UNEXPLAINABLE WEIGHT LOSS, FEVER, CHILLS, OR NEW CHANGES IN URINARY OR BOWEL CONTROL. THE PATIENT IS COVID-19 NEGATIVE DESCRIPTION OF PROCEDURE THE PATIENT WAS BROUGHT TO THE PROCEDURE ROOM AND PLACED IN THE PRONE POSITION. THE LUMBOSACRAL AREA WAS CLEANED WITH CHLORAPREP SOLUTION AND DRAPED ASEPTICALLY. THE PROCEDURE WAS DONE UNDER STERILE CONDITIONS. I CHECKED LATERALITY AND THE LEVEL WHERE THE PROCEDURE WAS GOING TO BE PERFORMED WITH THE PATIENT AND THE SUPPORTING STAFF AT THE MOMENT OF THE TIME OUT IN THE PROCEDURE ROOM. UNDER FLUOROSCOPIC GUIDANCE, THE TARGET POINT WAS SELECTED AT THE RIGHT AND LEFT L4-L5 AND RIGHT AND LEFT L5-S1 FACET JOINT. TARGET POINT WAS SELECTED AFTER LATERAL ROTATION AND TILT OF THE MAGNIFIER OF THE C-ARM. LIDOCAINE 0.5% WAS USED TO NUMB THE SKIN AND THE SUBCUTANEOUS TISSUE BELOW IT. SPINAL NEEDLES, 22-GAUGE, WERE ADVANCED UNDER FLUOROSCOPIC GUIDANCE AND FOLLOWING PATIENT FEEDBACK UNTIL THE TARGETS WERE TOUCHED. THE POSITION OF THE NEEDLES WAS VERIFIED WITH AP AND LATERAL VIEWS. AFTER PROPER POSITION OF THE NEEDLES WAS ACHIEVED, ISOVUE-M DYE 30%, 0.1 ML, WAS INJECTED SHOWING ADEQUATE SPREAD OF THE DYE. THEN A SOLUTION OF 1.0 ML OF BUPIVACAINE 0.125% OF DEXAMETHASONE 5 MG WAS INJECTED AT EACH SITE. THERE WAS NO EVIDENCE OF BLOOD, PARESTHESIA OR CEREBROSPINAL FLUID DURING THE PROCEDURE. THE PATIENT WAS SENT TO THE RECOVERY ROOM. THE PATIENT WAS MOVING THE EXTREMITIES AND DOING WELL. THERE WERE NO COMPLICATIONS DURING THE PROCEDURE. EBL LESS THAN 5 ML. FLUOROSCOPY TIME WAS 29 SECONDS POST PROCEDURE NOTE THE PATIENT WILL BE SEEN IN A FOLLOW UP IN THE NEXT FEW WEEKS. I AM LOOKING FOR LONG LASTING RELIEF FOR THE PATIENT WITH THIS INTERVENTION. INSTRUCTIONS WERE GIVEN, QUESTIONS WERE ANSWERED, AND THE PATIENT EXPRESSED UNDERSTANDING AND AGREES WITH THE PLAN. THE PATIENT IS AWARE TO STAY HOME FOR THE NEXT WEEK, IF POSSIBLE, DUE TO COVID-19. I, AARON MCCURDY, DOCUMENTED THE ABOVE INFORMATION ACTING A SCRIBE FOR DR. WHYTE. I HAVE REVIEWED THE ABOVE DOCUMENT, WRITTEN BY AARON MCCURDY, INKER, AND I VERIFY THAT IT IS ACCURATE PROCEDURE CODES 42574 INJ PARAVERT F JNT L/S 1 LEV, MODIFIERS: 50 [id number] INJ PARAVERT F JNT L/S 2 LEV, MODIFIERS: 50 DISPOSITION & COMMUNICATION FOLLOW UP F/UP WITH AVIATION MANAGER (REASON: POST ZAFAR LFBT L4-L5, L5-S1) ELECTRONICALLY SIGNED BY KEREN WHYTE MD, MD ON 08/12/2019 AT 09:22 AM EDT DISCLAIMER : THIS IS A VISIT SUMMARY EXTRACTED FROM THE [employer] CHART. IT IS NOT A COPY OF THE [employer] PROGRESS NOTE. CAIO
== END ==
LOC: M PAIN 13:45
PROVIDERS: ATTEND Anesthesiology
DX: M47.816 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lopathy, lumbar region (principal); M47.817 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lopathy, lumbosacral region
CPT/HCPCS: 64493; 64494; J1100; Q9967

== ENCOUNTER → 2019-08-31 | Outpatient (CLI) | payer MEDICARE ==
[~2019-08-31] MED LIST changes: -BUPIVACAINE HCL 0.25% 30ML VIAL As Ordered ONE; -ISOVUE-M 300 61% 15ML VIAL As Ordered ONE; -LIDOCAINE 1% SDV 30ML VIAL As Ordered ONE; -dexameTHASONE 10MG/1ML VIAL PRES.FREE (J1100 PER 1MG) As Ordered ONE; -diazePAM 5 MG TAB As Ordered ONE; -oxyCODONE 5MG TAB As Ordered ONE
--- NOTE | 2019-09-14 04:09 | ECWPNPC ---
PATIENT NAME: OWEN PHILLIPS : 1945 GENDER: MALE VISIT DATE: 08/31/2019 DISCHARGE DATE: 08/31/19 1349 VISIT LOCKED DATE TIME: PHYSICIAN: HARI VIGIL RESOURCE: HARI VIGIL REASON FOR APPOINTMENT 1. POST ZAFAR LFBT L4-L5, L5-S1 HISTORY OF PRESENT ILLNESS GENERAL: HERE FOR POST PROCEDURE FOLLOW-UP. HAD BILATERAL L4-5, L5-S1 LUMBAR THERAPEUTIC BLOCK ON 08/11/2019. REPORTING MARKED REDUCTION IN PAIN AND ACTIVITY TOLERANCE IMPROVEMENT SINCE PROCEDURE. COMPLAINING OF UPPER BACK PAIN. HE WILL DISCUSS THIS WITH PRIMARY CARE AT FOLLOW-UP NEXT WEEK. DISCUSSED TREATMENT PLAN. -. FALL RISK SCREENING: SCREENING :NO FALLS REPORTED IN THE LAST YEAR PAIN SCREENING: PATIENT HAS A COMPLAINT OF ACUTE OR CHRONIC PAIN :YES LOCATION OF PAIN: BILATERAL LOWER BACK AROUND TO HIPS ON BOTH SIDES INTENSITY OF PAIN (SCALE OF 1 TO 10): RATES IT A 5 TODAY WHAT DOES YOUR PAIN FEEL LIKE:INTERMITTENT, TENDER, SORE PAIN IS INCREASED BY:ACTIVITIES PAIN IS DECREASED BY: MEDICINE THAT HARI PRESCRIBES NURSING NOTE: -. PAIN CENTER INTAKE QUESTIONS: DO YOU HAVE A HISTORY OF MRSA? :NO DO YOU TAKE A BLOOD THINNERS? :NO DO YOU HAVE ANY BLEEDING DISORDERS? :NO ANY NEW NUMBNESS OR WEAKNESS IN YOUR LEGS OR ARMS? :NO ANY PACEMAKER,DEFIBRILLATOR, OR DORSAL COLUMN STIMULATOR? :NO DO YOU HAVE ANY RASHES OR OPEN SORES? :NO ARE YOU ALLERGIC TO IV DYE? :NO ARE YOU DIABETIC? :NO ANY NEW PROBLEMS WITH YOUR MEDICATIONS? :NO HAVE YOU RECEIVED A VACCINE IN THE PAST 30 DAYS? :NO DO YOU PLAN TO RECEIVE A VACCINE IN THE NEXT 21 DAYS? :NO DO YOU NEED ANY PRESCRIPTION? :NO DO YOU TAKE ANY IMMUNOSUPPRESSIVE MEDICATIONS? :NO IS THERE A CHANCE YOU COULD BE ? :NO ARE YOU BREAST FEEDING? :NO CURRENT MEDICATIONS TAKING NUCALA 100 MG/ML SOLUTION PREFILLED SYRINGE DIRECTED SUBCUTANEOUS MONTHLY, NOTES: MAY TAKING GEMFIBROZIL 600 MG TABLET 1 TABLET ORALLY DAILY TAKING JANUVIA 100 MG TABLET 1 TABLET ORALLY ONCE A DAY TAKING LISINOPRIL 20 MG TABLET 1 TABLET ORALLY ONCE A DAY TAKING PRAVASTATIN 40 20 MG TABLET 1 TAB(S) ORAL DAILY TAKING AMLODIPINE BESYLATE 10 MG TABLET 1 TABLET ORALLY ONCE A DAY TAKING VITAMIN B-6 50 MG TABLET 1 TABLET ORALLY ONCE A DAY TAKING ACETAMINOPHEN 650 MG TABLET 1 TABLET NEEDED ORALLY EVERY 6 HRS, NOTES: > 1 MONTH TAKING OMEPRAZOLE 20 MG CAPSULE DELAYED RELEASE 1 CAPSULE ORALLY ONCE A DAY TAKING IBUPROFEN 600 MG TABLET 1 TABLET WITH FOOD OR MILK NEEDED ORALLY THREE TIMES A DAY TAKING OXYBUTYNIN CHLORIDE ER 10 MG TABLET EXTENDED RELEASE 24 HOUR 1 TABLET ORALLY ONCE A DAY TAKING GABAPENTIN 100 MG CAPSULE 2 CAP ORALLY BID, NOTES: 08/09 2300 MEDICATION LIST REVIEWED AND RECONCILED WITH THE PATIENT PAST MEDICAL HISTORY ARTHRITIS HYPERTENSION HYPERCHOLESTEROLEMIA DM BILATERAL CATARACT REMOVAL NEPHROLITHIASIS(SPONTANOUS PASSAGE) SYNCOPE PROSTATE CA, [id number], VANI 7 (3+4) - S/P PROSTATECTOMY ENVIRONMENTAL ALLERGIES PNEUMONIA ALLERGIES N.K.D.A. SURGICAL HISTORY B/L CATARACT SURGERY 2013 BACK INJECTIONS X 2 12/2012 TRUS 07/23/2013 ROBOTIC ASSISTED RADICAL PROSTATECTOMY AND BILATERAL PELVIC LYMPH NODE DIESSECTION 09/07/13 FAMILY HISTORY FATHER: 73 YRS, STROKE, DIAGNOSED WITH UNSPECIFIED CEREBRAL ARTERY OCCLUSION WITH CEREBRAL INFARCTION MOTHER: 74 YRS, CANCER IN HIP, OTHER MALIGNANT NEOPLASM OF UNSPECIFIED SITE SIBLINGS: ALIVE, 1 BROTHER OLDER AND 1 SISTER YOUNGER LIVING 4 BROTHER(S) , 3 SISTER(S) . 1 SON(S) , 3 DAUGHTER(S) - HEALTHY. NO KNOWN FAMILY HISTORY OF ANY UROLOGICALLY RELATED DISEASES CANCERS. SOCIAL HISTORY GENERAL: TOBACCO USE ARE YOU A:FORMER SMOKER HOW LONG HAS IT BEEN SINCE YOU LAST SMOKED?> 10 YEARS LATEX QUESTIONNAIRE LATEX ALLERGY : HAVE YOU EVER DEVELOPED ANY TYPE OF REACTION AFTER HANDLING LATEX PRODUCTS SUCH RUBBER GLOVES, CONDOMS, DIAPHRAGMS, BALLOONS, SOCKS, OR UNDERWEAR?NO LATEX ALLERGY : HAVE YOU EVER DEVELOPED ANY TYPE OF REACTION DURING OR AFTER DENTAL APPOINTMENT, VAGINAL/RECTAL EXAMINATION, SURGICAL PROCEDURE, OR ANY OTHER EXPOSURE?NO DATE ASKED : 06/09/2018 LATEX RISK : HAVE YOU EVER HAD ANY DIFFICULTY BREATHING OR HIVES AFTER EATING OR HANDLING ANY FRUITS, OR VEGETABLES; SUCH KIWI, BANANAS, STONE FRUITS, OR CHESTNUTSNO LATEX RISK : DO YOU HAVE A PREVIOUS PERSONAL HISTORY OF MORE THAN NINE SURGERIES, SPINA BIFIDA, OR REPEATED CATHERIZATIONS? NO LATEX RISK : ARE YOU FREQUENTLY EXPOSED TO LATEX PRODUCTS IN YOUR OCCUPATION?NO ALCOHOL SCREENING POINTS: 0, INTERPRETATION: NEGATIVE. RECREATIONAL DRUG USE DENIES. CAFFEINE 2-5/DAY. SEXUAL HX HAD SEX IN THE LAST 12 MONTHS (VAGINAL, ORAL, OR ANAL)?: YES, WITH: WOMEN ONLY, USE PROTECTION?: NO, HAVE YOU EVER HAD AN STD?: NO. RASTAFARI LUTHERAN. LANGUAGE AMHARIC. LEARNING BARRIERS / SPECIAL NEEDS BARRIERS TO LEARNING?NO HEARING IMPAIRED?NO VISION IMPAIRED?NO COGNITIVELY IMPAIRED?NO READINESS TO LEARN?YES LEARNING PREFERENCES?NO LEARNING CAPABILITIES PRESENT?YES EMOTIONAL BARRIERS?NO SPECIAL DEVICES?NO DOMESTIC VIOLENCE NONE. 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 EXERCISE: BIKES. MARITAL STATUS: . OTHERS AT HOME: SIGNIFICANT OTHER/GIRLFRIEND. NEW PATIENT PAIN DIARY PATIENT DESCRIBES PAIN :ACHING, HAVE IT ALL THE TIME FROM 0-10, WHAT LEVEL IS YOUR PAIN TODAY?8 PRECIPITATING FACTORS SITTING ALLEVIATING FACTORS ACTIVITY, WALKING IMPACT ON FUNCTION YES PAIN CLINIC PFS, CLERGY, PUBLIC HEALTH REFERRALS HAS THE PATIENT BEEN EDUCATED REGARDING HIS/HER PLAN OF CARE?YES HAS THE PATIENT BEEN EDUCATED REGARDING PAIN, THE RISK FOR PAIN, THE IMPORTANCE OF EFFECTIVE PAIN MANAGEMENT, AND THE PAIN ASSESSMENT PROCESS?YES ADVANCE DIRECTIVE ADVANCE DIRECTIVE DISCUSSED WITH PATIENT:YES PT DOES NOT HAVE HCP AND DECLINES INFO AT THIS TIME. HOSPITALIZATION/MAJOR DIAGNOSTIC PROCEDURE SYNCOPE CAH 03/14/13 PNEUMONIA 01/22-01/24/17 PNEUMONIA 06/2017 REVIEW OF SYSTEMS CONSTITUTIONAL: ANY RECENT FEVER NO . CHILLS NO . WEIGHT CHANGE OF UNKNOWN REASONS NO . GASTROENTEROLOGY: NEW UNEXPLAINABLE CHANGES IN BOWEL CONTROL NO . CONSTIPATION NO . GENITOURINARY: ANY NEW CHANGE IN BLADDER CONTROL? NO . NEUROLOGY: NEW ONSET DIZZINESS OR NEUROLOGICAL CHANGES NOT MENTIONED NO . NEW NUMBNESS OR PAIN PATTERNS NOT MENTIONED AND PERTINENT TO TODAY'S VISIT NO . CARDIOLOGY: NEW CHEST PRESSURE NO . NEW CHEST PAIN NO . RESPIRATORY: UNEXPLAINABLE COUGH NO . NEW SHORTNESS OF BREATH NO . VITAL SIGNS WT 253.2 LBS, HT 72 IN, BMI 34.34 INDEX, BP 136/63 MM HG, HR 66 /MIN, RR 18 /MIN, TEMP 97.7 F, OXYGEN SAT % 98%, NA INITIALS AW 1314. EXAMINATION GENERAL EXAMINATION: GENERALAWAKE,ALERT ,PLEASANT . PSYCHAFFECT NORMAL . LUNGS:LUNG ALVARADO ARE CLEAR TO AUSCULTATION BILATERALLY. GOOD MOVEMENT OF AIR . HEART:S1, S2 IN A REGULAR RATE AND RHYTHM. NO SIGNIFICANT MURMURS, RUBS OR GALLOPS NOTED . ASSESSMENTS LUMBOSACRAL SPONDYLOSIS WITHOUT MYELOPATHY - M47.817 (PRIMARY) TREATMENT LUMBOSACRAL SPONDYLOSIS WITHOUT MYELOPATHY NOTES: CONTINUE HOME EXERCISE AND STRETCHING. FOLLOW-UP IN PAIN CLINIC IN 2 MONTHS. PROCEDURE CODES FA211 ESTABILISHED PATIENT [facility] CHARGE DISPOSITION & COMMUNICATION FOLLOW UP 2 MONTHS (REASON: LBP) ELECTRONICALLY SIGNED BY BEVERLEY PUENTE ON 09/13/2019 AT 03:04 PM EDT DISCLAIMER : THIS IS A VISIT SUMMARY EXTRACTED FROM THE [employer] CHART. IT IS NOT A COPY OF THE [employer] PROGRESS NOTE. MTDD
== END ==
LOC: M PAIN 13:00
PROVIDERS: ATTEND Nurse Practitioner Family
DX: M47.817 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lopathy, lumbosacral region (principal)

== ENCOUNTER → 2019-09-02 | Outpatient (CLI) | payer MEDICARE ==
[2019-09-02 14:22] LABS: HEMATOCRIT 42.5 % (42.0-52.0); MEAN CORPUSCULAR HEMOGLOBIN 28.9 pg (27.0-33.0); MEAN CORPUSCULAR HGB CONC 32.9 g/dl (32.0-36.5); MEAN CORPUSCULAR VOLUME 87.8 fl (80.0-96.0); PLATELET COUNT, AUTOMATED 245 10^3/uL (150-450); RED BLOOD COUNT 4.84 10^6/uL (4.30-6.10); WHITE BLOOD COUNT 7.4 10^3/uL (4.0-10.0)
[2019-09-02 14:41] LABS: HEMOGLOBIN A1c 6.6 %
[2019-09-02 14:49] LABS: ALBUMIN 4.2 GM/DL (3.2-5.2); ALT/SGPT 66 U/L (12-78); BILIRUBIN,TOTAL 0.8 MG/DL (0.2-1.0); BLOOD UREA NITROGEN 28 MG/DL (7-18); CARBON DIOXIDE LEVEL 27 MEQ/L (21-32); CHLORIDE LEVEL 108 MEQ/L (98-107); CPK CREATINE PHOSPHOKINASE 195 U/L (39-308); CREATININE FOR GFR 1.23 MG/DL (0.70-1.30); GLOMERULAR FILTRATION RATE > 60.0 (>42); GLUCOSE, FASTING 103 MG/DL (70-100); POTASSIUM SERUM 4.7 MEQ/L (3.5-5.1); SODIUM LEVEL 138 MEQ/L (136-145); TOTAL PROTEIN 7.8 GM/DL (6.4-8.2)
[2019-09-02 14:50] LABS: CHOLESTEROL RISK RATIO 4.666 (<5)
[2019-09-02 15:06] LABS: MALB URINE SIEMENS 58.8 MG/L; MAU/CREAT RATIO 29.1 MCG/MG (0.0-30.0)
== END ==
LOC: M LAB 13:38
PROVIDERS: ATTEND Nurse Practitioner Family
DX: I10 Essential (primary) hypertension (principal); R78.5 Finding of other psychotropic drug in blood

== ENCOUNTER → 2019-11-01 | Outpatient (CLI) | payer MEDICARE ==
[~2019-11-01] MED LIST changes: +AMLO1TAB24; +AMLO1TAB24 PO; -AMLO5TAB6; -AMLO5TAB6 PO; -ASPI81TA85 PO; +ASPI81TA86 PO
== END ==
LOC: M PAIN 12:59
PROVIDERS: ATTEND Nurse Practitioner Family
DX: M47.816 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lopathy, lumbar region (principal)

== ENCOUNTER → 2019-12-09 | Outpatient (CLI) | payer MEDICARE, MEDICAID ==
--- NOTE | 2019-12-15 16:02 | ECWPNPC ---
PATIENT NAME: OWEN PHILLIPS : 1945 GENDER: MALE VISIT DATE: 12/09/2019 DISCHARGE DATE: 12/09/19 1153 VISIT LOCKED DATE TIME: PHYSICIAN: HARI VIGIL RESOURCE: HARI VIGIL REASON FOR APPOINTMENT 1. EVALUATE FOR PROCEDURE HISTORY OF PRESENT ILLNESS DEPRESSION SCREENING: HERE FOR FOLLOW-UP OF CHRONIC LOW BACK PAIN. PAIN HAS GRADUALLY RETURNED TO BASELINE. HAS HAD SEVERAL MONTHS OF PAIN CONTROL AFTER LUMBAR THERAPEUTIC BLOCKS IN THE DISTANT PAST. PAIN IS AGGRAVATED WITH ACTIVITY. REVIEWED MRI OF THE LS-SPINE AND DISCUSS TREATMENT PLAN. PHQ-2 (2015 EDITION) LITTLE INTEREST OR PLEASURE IN DOING THINGS?NOT AT ALL FEELING DOWN, DEPRESSED, OR HOPELESS?NOT AT ALL TOTAL SCORE0 GENERAL: -. FALL RISK SCREENING: SCREENING :NO FALLS REPORTED IN THE LAST YEAR PAIN SCREENING: PATIENT HAS A COMPLAINT OF ACUTE OR CHRONIC PAIN :YES LOCATION OF PAIN:LOW BACK, LEFT HIP, RIGHT HIP, LEG(S), FEET, OTHER: BUTTOCKS, GROIN INTENSITY OF PAIN (SCALE OF 1 TO 10):9 WHAT DOES YOUR PAIN FEEL LIKE:ACHING, CONTINOUS, SHOOTING DURATION:CONTINOUS, ALL DAY, AWAKENS FROM SLEEP PAIN IS INCREASED BY:ACTIVITIES, PROLONGED STANDING PAIN IS DECREASED BY:USE OF PAIN MEDICATIONS, SITTING NURSING NOTE: -. PAIN CENTER INTAKE QUESTIONS: DO YOU HAVE A HISTORY OF MRSA? :NO DO YOU TAKE A BLOOD THINNERS? :NO DO YOU HAVE ANY BLEEDING DISORDERS? :NO ANY NEW NUMBNESS OR WEAKNESS IN YOUR LEGS OR ARMS? :NO ANY PACEMAKER,DEFIBRILLATOR, OR DORSAL COLUMN STIMULATOR? :NO DO YOU HAVE ANY RASHES OR OPEN SORES? :NO ARE YOU ALLERGIC TO IV DYE? :NO ARE YOU DIABETIC? :YES TYPE II ANY NEW PROBLEMS WITH YOUR MEDICATIONS? :NO HAVE YOU RECEIVED A VACCINE IN THE PAST 30 DAYS? :NO DO YOU PLAN TO RECEIVE A VACCINE IN THE NEXT 21 DAYS? :YES IF SO WHAT VACCINE AND WHEN? WOULD LIKE TO GET PNEUMONIA VACCINE 23 SOON DO YOU NEED ANY PRESCRIPTION? :YES GABAPENTIN (WOULD LIKE TO DISCUSS INCREASING THE DOSE) DO YOU TAKE ANY IMMUNOSUPPRESSIVE MEDICATIONS? :NO IS THERE A CHANCE YOU COULD BE ? :NO ARE YOU BREAST FEEDING? :NO CURRENT MEDICATIONS TAKING NUCALA 100 MG/ML SOLUTION PREFILLED SYRINGE DIRECTED SUBCUTANEOUS MONTHLY, NOTES: MAY TAKING GEMFIBROZIL 600 MG TABLET 1 TABLET ORALLY DAILY TAKING JANUVIA 100 MG TABLET 1 TABLET ORALLY ONCE A DAY TAKING LISINOPRIL 20 MG TABLET 1 TABLET ORALLY ONCE A DAY TAKING PRAVASTATIN 40 20 MG TABLET 1 TAB(S) ORAL DAILY TAKING AMLODIPINE BESYLATE 10 MG TABLET 1 TABLET ORALLY ONCE A DAY TAKING VITAMIN B-6 50 MG TABLET 1 TABLET ORALLY ONCE A DAY TAKING ACETAMINOPHEN 650 MG TABLET 1 TABLET NEEDED ORALLY EVERY 6 HRS, NOTES: > 1 MONTH TAKING OMEPRAZOLE 20 MG CAPSULE DELAYED RELEASE 1 CAPSULE ORALLY ONCE A DAY TAKING OXYBUTYNIN CHLORIDE ER 10 MG TABLET EXTENDED RELEASE 24 HOUR 1 TABLET ORALLY ONCE A DAY TAKING GABAPENTIN 100 MG CAPSULE 2 CAP ORALLY BID, NOTES: 08/09 2300 TAKING IBUPROFEN 600 MG TABLET 1 TABLET WITH FOOD OR MILK NEEDED ORALLY THREE TIMES A DAY MEDICATION LIST REVIEWED AND RECONCILED WITH THE PATIENT PAST MEDICAL HISTORY ARTHRITIS HYPERTENSION HYPERCHOLESTEROLEMIA DM BILATERAL CATARACT REMOVAL NEPHROLITHIASIS(SPONTANOUS PASSAGE) SYNCOPE PROSTATE CA, [id number], VANI 7 (3+4) - S/P PROSTATECTOMY ENVIRONMENTAL ALLERGIES PNEUMONIA ALLERGIES N.K.D.A. SURGICAL HISTORY B/L CATARACT SURGERY 2013 BACK INJECTIONS X 2 12/2012 TRUS 07/23/2013 ROBOTIC ASSISTED RADICAL PROSTATECTOMY AND BILATERAL PELVIC LYMPH NODE DIESSECTION 09/07/13 FAMILY HISTORY FATHER: 73 YRS, STROKE, DIAGNOSED WITH UNSPECIFIED CEREBRAL ARTERY OCCLUSION WITH CEREBRAL INFARCTION MOTHER: 74 YRS, CANCER IN HIP, OTHER MALIGNANT NEOPLASM OF UNSPECIFIED SITE SIBLINGS: ALIVE, 1 BROTHER OLDER AND 1 SISTER YOUNGER LIVING 4 BROTHER(S) , 3 SISTER(S) . 1 SON(S) , 3 DAUGHTER(S) - HEALTHY. NO KNOWN FAMILY HISTORY OF ANY UROLOGICALLY RELATED DISEASES CANCERS. SOCIAL HISTORY GENERAL: TOBACCO USE ARE YOU A:FORMER SMOKER HOW LONG HAS IT BEEN SINCE YOU LAST SMOKED?> 10 YEARS LATEX QUESTIONNAIRE LATEX ALLERGY : HAVE YOU EVER DEVELOPED ANY TYPE OF REACTION AFTER HANDLING LATEX PRODUCTS SUCH RUBBER GLOVES, CONDOMS, DIAPHRAGMS, BALLOONS, SOCKS, OR UNDERWEAR?NO LATEX ALLERGY : HAVE YOU EVER DEVELOPED ANY TYPE OF REACTION DURING OR AFTER DENTAL APPOINTMENT, VAGINAL/RECTAL EXAMINATION, SURGICAL PROCEDURE, OR ANY OTHER EXPOSURE?NO LATEX RISK : HAVE YOU EVER HAD ANY DIFFICULTY BREATHING OR HIVES AFTER EATING OR HANDLING ANY FRUITS, OR VEGETABLES; SUCH KIWI, BANANAS, STONE FRUITS, OR CHESTNUTSNO LATEX RISK : DO YOU HAVE A PREVIOUS PERSONAL HISTORY OF MORE THAN NINE SURGERIES, SPINA BIFIDA, OR REPEATED CATHERIZATIONS? NO LATEX RISK : ARE YOU FREQUENTLY EXPOSED TO LATEX PRODUCTS IN YOUR OCCUPATION?NO DATE ASKED : 12/09/2019 ALCOHOL SCREENING POINTS: 0, INTERPRETATION: NEGATIVE. RECREATIONAL DRUG USE DENIES. CAFFEINE 2-5/DAY. SEXUAL HX HAD SEX IN THE LAST 12 MONTHS (VAGINAL, ORAL, OR ANAL)?: YES, WITH: WOMEN ONLY, USE PROTECTION?: NO, HAVE YOU EVER HAD AN STD?: NO. 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 LANGUAGE MALAY. LEARNING BARRIERS / SPECIAL NEEDS CHANGE FROM LAST VISIT?NO BARRIERS TO LEARNING?NO HEARING IMPAIRED?NO VISION IMPAIRED?NO COGNITIVELY IMPAIRED?NO READINESS TO LEARN?YES LEARNING PREFERENCES?NO LEARNING CAPABILITIES PRESENT?YES EMOTIONAL BARRIERS?NO SPECIAL DEVICES?NO REFRIGERATION SYSTEM INSTALLER NEEDED?NO DOMESTIC VIOLENCE NONE. 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 EXERCISE: BIKES. MARITAL STATUS: . OTHERS AT HOME: SIGNIFICANT OTHER/GIRLFRIEND. NEW PATIENT PAIN DIARY PATIENT DESCRIBES PAIN :ACHING, HAVE IT ALL THE TIME FROM 0-10, WHAT LEVEL IS YOUR PAIN TODAY?8 PRECIPITATING FACTORS SITTING ALLEVIATING FACTORS ACTIVITY, WALKING IMPACT ON FUNCTION YES PAIN CLINIC PFS, CLERGY, PUBLIC HEALTH REFERRALS HAS THE PATIENT BEEN EDUCATED REGARDING HIS/HER PLAN OF CARE?YES HAS THE PATIENT BEEN EDUCATED REGARDING PAIN, THE RISK FOR PAIN, THE IMPORTANCE OF EFFECTIVE PAIN MANAGEMENT, AND THE PAIN ASSESSMENT PROCESS?YES ADVANCE DIRECTIVE ADVANCE DIRECTIVE DISCUSSED WITH PATIENT:YES PT DOES NOT HAVE HCP AND DECLINES INFO AT THIS TIME. HOSPITALIZATION/MAJOR DIAGNOSTIC PROCEDURE SYNCOPE CAH 03/14/13 PNEUMONIA 01/22-01/24/17 PNEUMONIA 06/2017 REVIEW OF SYSTEMS CONSTITUTIONAL: ANY RECENT FEVER NO . CHILLS NO . WEIGHT CHANGE OF UNKNOWN REASONS NO . GASTROENTEROLOGY: NEW UNEXPLAINABLE CHANGES IN BOWEL CONTROL NO . CONSTIPATION NO . GENITOURINARY: ANY NEW CHANGE IN BLADDER CONTROL? NO . NEUROLOGY: NEW ONSET DIZZINESS OR NEUROLOGICAL CHANGES NOT MENTIONED NO . NEW NUMBNESS OR PAIN PATTERNS NOT MENTIONED AND PERTINENT TO TODAY'S VISIT NO . CARDIOLOGY: NEW CHEST PRESSURE NO . NEW CHEST PAIN NO . RESPIRATORY: UNEXPLAINABLE COUGH NO . NEW SHORTNESS OF BREATH NO . VITAL SIGNS WT 253.0 LBS, HT 72 IN, BMI 34.31 INDEX, BP 148/69 MM HG, HR 82 /MIN, RR 18 /MIN, TEMP 97.1 F, OXYGEN SAT % 96%, SAFE IN ENV? (Y/N) YES, NA INITIALS AW 1109, REVIEWED BY: RUY. EXAMINATION GENERAL EXAMINATION: GENERAL AWAKE,ALERT ,PLEASANT . PSYCH AFFECT NORMAL . LUNGS: LUNG ALVARADO ARE CLEAR TO AUSCULTATION BILATERALLY. GOOD MOVEMENT OF AIR . HEART: S1, S2 IN A REGULAR RATE AND RHYTHM. NO SIGNIFICANT MURMURS, RUBS OR GALLOPS NOTED . LUMBAR:PALPATION:TENDER OVER BILAT. L4/5-L5/S1 LUMBAR FACETS WITH FACET LOADING.. DIAGNOSTIC TESTS REVIEWED MRI L/S SPINE-04/21/18. 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 PREVENTIVE MEDICINE PAIN CLINIC TEACHING: PROCEDURE TEACHING REVIEWED INFORMATION ON LUMABR FACET BLOCK PROCEDURE WITH PATIENT. ALSO REVIEWED PRE-PROCEDURE INSTRUCTIONS. PATIENT VERBALIZED AN UNDERSTANDING. WILLIAM FRANKEL 12/09/2019 3:24:01 PM > . PROCEDURE CODES FA211 ESTABILISHED PATIENT [facility] CHARGE DISPOSITION & COMMUNICATION FOLLOW UP POST (REASON: BILATERAL L45 L5-S1 LUMBAR FACET BLOCK THERAPEUTIC) ELECTRONICALLY SIGNED BY BEVERLEY PUENTE ON 12/15/2019 AT 03:56 PM EDT DISCLAIMER : THIS IS A VISIT SUMMARY EXTRACTED FROM THE [employer] CHART. IT IS NOT A COPY OF THE [employer] PROGRESS NOTE. CAIO
== END ==
LOC: M PAIN 11:00
PROVIDERS: ATTEND Nurse Practitioner Family
DX: M47.817 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lopathy, lumbosacral region (principal); G89.29 Other chronic pain; I10 Essential (primary) hypertension; E78.00 Pure hypercholesterolemia, unspecified; E11.9 Type 2 diabetes mellitus without complications; Z85.46 Personal history of malignant neoplasm of prostate; Z87.891 Personal history of nicotine dependence; Z79.84 Long term (current) use of oral hypoglycemic drugs; Z79.899 Other long term (current) drug therapy

== ENCOUNTER → 2019-12-13 | Outpatient (CLI) | payer MEDICARE, MEDICAID ==
[2019-12-13 12:29] LABS: HEMATOCRIT 40.6 % (42.0-52.0); HEMOGLOBIN 13.5 g/dl (13.5-17.5); MEAN CORPUSCULAR HEMOGLOBIN 29.3 pg (27.0-33.0); MEAN CORPUSCULAR HGB CONC 33.3 g/dl (32.0-36.5); MEAN CORPUSCULAR VOLUME 88.1 fl (80.0-96.0); PLATELET COUNT, AUTOMATED 293 10^3/uL (150-450); RED BLOOD COUNT 4.61 10^6/uL (4.30-6.10); WHITE BLOOD COUNT 8.4 10^3/uL (4.0-10.0)
[2019-12-13 12:54] LABS: ALBUMIN 3.9 GM/DL (3.2-5.2); ALT/SGPT 82 U/L (12-78); BILIRUBIN,TOTAL 0.5 MG/DL (0.2-1.0); BLOOD UREA NITROGEN 24 MG/DL (7-18); CALCIUM LEVEL 8.9 MG/DL (8.8-10.2); CARBON DIOXIDE LEVEL 28 MEQ/L (21-32); CHLORIDE LEVEL 107 MEQ/L (98-107); CHOLESTEROL LEVEL 147 MG/DL (<200); CPK CREATINE PHOSPHOKINASE 110 U/L (39-308); CREATININE FOR GFR 1.16 MG/DL (0.70-1.30); GLOMERULAR FILTRATION RATE > 60.0 (>42); GLUCOSE, FASTING 107 MG/DL (70-100); HDL CHOLESTEROL 35 MG/DL (>40); LDL CHOLESTEROL 92 MG/DL (<100); NON-HDL-C 112 MG/DL; POTASSIUM SERUM 4.3 MEQ/L (3.5-5.1); SODIUM LEVEL 140 MEQ/L (136-145); TOTAL PROTEIN 7.5 GM/DL (6.4-8.2); TRIGLYCERIDES LEVEL 101 MG/DL (<150)
[2019-12-13 14:16] LABS: HEMOGLOBIN A1c 6.1 %
== END ==
LOC: M LAB 11:00
PROVIDERS: ATTEND Nurse Practitioner Family
DX: E78.5 Hyperlipidemia, unspecified (principal); I10 Essential (primary) hypertension; E11.9 Type 2 diabetes mellitus without complications

== ENCOUNTER → 2019-12-14 | Outpatient (CLI) | payer MEDICARE, MEDICAID ==
--- NOTE | 2019-12-14 14:24 | PFTRPT ---
Height: 70.00 Inches Weight: 247.00 Lbs BSA: 2.28 Diagnosis: M30.1 DATE: 12/14/2019 ORDERING PHYSICIAN: Santosh Duran MD Study is of excellent technical quality. Forced vital capacity is normal. FEV1 is in proportion, obstructive index is therefore normal. Expiratory limit of the flow-volume loop is normal. Total lung capacity is normal. Residual volume is in proportion. Diffusing capacity although significantly reduced is appropriate for alveolar volume. No hemoglobin available for correction. IMPRESSION: Decreased absolute diffusing capacity requires clinical correlation. MTDD
== END ==
LOC: M CARPUL 13:58
PROVIDERS: ATTEND Internal Medicine
DX: 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 [Churg-Strauss] (principal)

== ENCOUNTER → 2019-12-15 | Outpatient (CLI) | payer MEDICARE, MEDICAID | LOC: M LABSMTC 11:15 | PROVIDERS: ATTEND Anesthesiology | DX: Z11.59 Encounter for screening for other viral diseases (principal) | CPT/HCPCS: C9803; U0003 ==

== ENCOUNTER → 2019-12-20 | Outpatient (CLI) | payer MEDICARE, MEDICAID ==
[~2019-12-20] MED LIST changes: +BUPIVACAINE HCL 0.25% 30ML VIAL As Ordered ONE; +ISOVUE-M 300 61% 15ML VIAL As Ordered ONE; +LIDOCAINE 1% SDV 30ML VIAL As Ordered ONE; +TRIAMCINOLONE ACETONIDE SUSP 40 MG/ML VIAL (J3301) As Ordered ONE; +diazePAM 2 MG TAB As Ordered ONE; +oxyCODONE 5MG TAB As Ordered ONE
--- NOTE | 2019-12-20 16:09 | REP ---
INDICATION: BILATERAL LUMBAR FACET BLOCK // PAIN. COMPARISON: 08/11/2019 TECHNIQUE: Multiple C-arm views bilateral lower lumbar spine facet joints performed. FINDINGS: [place] are seen along the lower lumbar facet joints bilaterally and a small amount of contrast was injected. IMPRESSION: 22 seconds fluoroscopy time utilized. <Electronically signed by Kwabena Fox > 12/20/19 8360
--- NOTE | 2019-12-27 16:24 | ECWPNPC ---
PATIENT NAME: OWEN PHILLIPS : 1945 GENDER: MALE VISIT DATE: 12/20/2019 DISCHARGE DATE: 12/20/191558 VISIT LOCKED DATE TIME: PHYSICIAN: KEREN WHYTE MD RESOURCE: KEREN WHYTE MD REASON FOR APPOINTMENT 1. BILATERAL L45 L5-S1 LUMBAR FACET BLOCK THERAPEUTIC HISTORY OF PRESENT ILLNESS GENERAL: -. FALL RISK SCREENING: SCREENING :NO FALLS REPORTED IN THE LAST YEAR PAIN SCREENING: PATIENT HAS A COMPLAINT OF ACUTE OR CHRONIC PAIN :YES LOCATION OF PAIN:LOW BACK, LEFT HIP, RIGHT HIP INTENSITY OF PAIN (SCALE OF 1 TO 10):9 WHAT DOES YOUR PAIN FEEL LIKE:SHARP, INTERMITTENT DURATION:INTERMITTENT, AWAKENS FROM SLEEP PAIN IS INCREASED BY:ACTIVITIES, PROLONGED STANDING PLAN/GOALS/TREATMENT/INTERVENTION/FOLLOW UP:SEE PLAN NURSING NOTE: -. PAIN CENTER INTAKE QUESTIONS: DO YOU HAVE A HISTORY OF MRSA? :NO DO YOU TAKE A BLOOD THINNERS? :NO DO YOU HAVE ANY BLEEDING DISORDERS? :NO ANY NEW NUMBNESS OR WEAKNESS IN YOUR LEGS OR ARMS? :NO ANY PACEMAKER,DEFIBRILLATOR, OR DORSAL COLUMN STIMULATOR? :NO DO YOU HAVE ANY RASHES OR OPEN SORES? :NO ARE YOU ALLERGIC TO IV DYE? :NO ARE YOU DIABETIC? :YES ANY NEW PROBLEMS WITH YOUR MEDICATIONS? :NO HAVE YOU RECEIVED A VACCINE IN THE PAST 30 DAYS? :NO DO YOU PLAN TO RECEIVE A VACCINE IN THE NEXT 21 DAYS? :NO PT EDUCATED REGARDING AVOIDANCE OF FLU//PNEUMONIA VACCINE FOR A MINIMUM OF 21 DAYS POST PROCEDURE. DO YOU TAKE ANY IMMUNOSUPPRESSIVE MEDICATIONS? :NO ANY HISTORY OF SEIZURES? :NO ANY HISTORY OF CARDIAC ISSUES OR EVENTS? :NO DO YOU HAVE SLEEP APNEA? :NO ANY RECENT HEAD INJURY? :NO DO YOU HAVE ANY NEW INFECTIONS? :NO IS THERE A CHANCE YOU COULD BE ? :NO ARE YOU BREAST FEEDING? :NO WHEN DID YOU LAST EAT? : 12/19/19 1900 WHEN DID YOU LAST DRINK? : 12/20/19 1000 WHAT DID YOU LAST DRINK? : SIPS OF WATER NAME OF PERSON DRIVING YOU HOME? : BINA (FRIEND) DO YOU HAVE ANY OTHER QUESTIONS OR CONCERNS? : NO CURRENT MEDICATIONS TAKING NUCALA 100 MG/ML SOLUTION PREFILLED SYRINGE DIRECTED SUBCUTANEOUS MONTHLY, NOTES: 12/19/192199 TAKING GEMFIBROZIL 600 MG TABLET 1 TABLET ORALLY DAILY, NOTES: 12/19/192199 TAKING JANUVIA 100 MG TABLET 1 TABLET ORALLY ONCE A DAY, NOTES: 12/19/192199 TAKING LISINOPRIL 20 MG TABLET 1 TABLET ORALLY ONCE A DAY, NOTES: 12/19/192199 TAKING PRAVASTATIN 40 20 MG TABLET 1 TAB(S) ORAL DAILY, NOTES: 12/19/192199 TAKING AMLODIPINE BESYLATE 10 MG TABLET 1 TABLET ORALLY ONCE A DAY, NOTES: 12/19/192199 TAKING VITAMIN B-6 50 MG TABLET 1 TABLET ORALLY ONCE A DAY, NOTES: 12/19/192199 TAKING ACETAMINOPHEN 650 MG TABLET 1 TABLET NEEDED ORALLY EVERY 6 HRS, NOTES: 12/19/191999 TAKING OMEPRAZOLE 20 MG CAPSULE DELAYED RELEASE 1 CAPSULE ORALLY ONCE A DAY, NOTES: 12/19/192199 TAKING OXYBUTYNIN CHLORIDE ER 10 MG TABLET EXTENDED RELEASE 24 HOUR 1 TABLET ORALLY ONCE A DAY, NOTES: 12/19/192199 TAKING IBUPROFEN 600 MG TABLET 1 TABLET WITH FOOD OR MILK NEEDED ORALLY THREE TIMES A DAY, NOTES: 12/19/192199 TAKING GABAPENTIN 300 MG TABLET 1 TABLET ORALLY TID, NOTES: 12/19/192199 MEDICATION LIST REVIEWED AND RECONCILED WITH THE PATIENT PAST MEDICAL HISTORY ARTHRITIS HYPERTENSION HYPERCHOLESTEROLEMIA DM BILATERAL CATARACT REMOVAL NEPHROLITHIASIS(SPONTANOUS PASSAGE) SYNCOPE PROSTATE CA, [id number], VANI 7 (3+4) - S/P PROSTATECTOMY ENVIRONMENTAL ALLERGIES PNEUMONIA ALLERGIES N.K.D.A. SURGICAL HISTORY B/L CATARACT SURGERY 2013 BACK INJECTIONS X 2 12/2012 TRUS 07/23/2013 ROBOTIC ASSISTED RADICAL PROSTATECTOMY AND BILATERAL PELVIC LYMPH NODE DIESSECTION 09/07/13 FAMILY HISTORY FATHER: 73 YRS, STROKE, DIAGNOSED WITH UNSPECIFIED CEREBRAL ARTERY OCCLUSION WITH CEREBRAL INFARCTION MOTHER: 74 YRS, CANCER IN HIP, OTHER MALIGNANT NEOPLASM OF UNSPECIFIED SITE SIBLINGS: ALIVE, 1 BROTHER OLDER AND 1 SISTER YOUNGER LIVING 4 BROTHER(S) , 3 SISTER(S) . 1 SON(S) , 3 DAUGHTER(S) - HEALTHY. NO KNOWN FAMILY HISTORY OF ANY UROLOGICALLY RELATED DISEASES CANCERS. SOCIAL HISTORY GENERAL: TOBACCO USE ARE YOU A:FORMER SMOKER HOW LONG HAS IT BEEN SINCE YOU LAST SMOKED?> 10 YEARS LATEX QUESTIONNAIRE LATEX ALLERGY : HAVE YOU EVER DEVELOPED ANY TYPE OF REACTION AFTER HANDLING LATEX PRODUCTS SUCH RUBBER GLOVES, CONDOMS, DIAPHRAGMS, BALLOONS, SOCKS, OR UNDERWEAR?NO LATEX ALLERGY : HAVE YOU EVER DEVELOPED ANY TYPE OF REACTION DURING OR AFTER DENTAL APPOINTMENT, VAGINAL/RECTAL EXAMINATION, SURGICAL PROCEDURE, OR ANY OTHER EXPOSURE?NO DATE ASKED : 12/09/2019 LATEX RISK : HAVE YOU EVER HAD ANY DIFFICULTY BREATHING OR HIVES AFTER EATING OR HANDLING ANY FRUITS, OR VEGETABLES; SUCH KIWI, BANANAS, STONE FRUITS, OR CHESTNUTSNO LATEX RISK : DO YOU HAVE A PREVIOUS PERSONAL HISTORY OF MORE THAN NINE SURGERIES, SPINA BIFIDA, OR REPEATED CATHERIZATIONS? NO LATEX RISK : ARE YOU FREQUENTLY EXPOSED TO LATEX PRODUCTS IN YOUR OCCUPATION?NO ALCOHOL SCREENING POINTS: 0, INTERPRETATION: NEGATIVE. RECREATIONAL DRUG USE DENIES. CAFFEINE 2-5/DAY. SEXUAL HX HAD SEX IN THE LAST 12 MONTHS (VAGINAL, ORAL, OR ANAL)?: YES, WITH: WOMEN ONLY, USE PROTECTION?: NO, HAVE YOU EVER HAD AN STD?: NO. ORIENTAL ORTHODOX ANGLICAN. LANGUAGE CZECH. 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 EXERCISE: BIKES. MARITAL STATUS: . OTHERS AT HOME: SIGNIFICANT OTHER/GIRLFRIEND. NEW PATIENT PAIN DIARY PATIENT DESCRIBES PAIN :ACHING, HAVE IT ALL THE TIME FROM 0-10, WHAT LEVEL IS YOUR PAIN TODAY?8 PRECIPITATING FACTORS SITTING ALLEVIATING FACTORS ACTIVITY, WALKING IMPACT ON FUNCTION YES PAIN CLINIC PFS, CLERGY, PUBLIC HEALTH REFERRALS HAS THE PATIENT BEEN EDUCATED REGARDING HIS/HER PLAN OF CARE?YES HAS THE PATIENT BEEN EDUCATED REGARDING PAIN, THE RISK FOR PAIN, THE IMPORTANCE OF EFFECTIVE PAIN MANAGEMENT, AND THE PAIN ASSESSMENT PROCESS?YES ADVANCE DIRECTIVE ADVANCE DIRECTIVE DISCUSSED WITH PATIENT:YES PT DOES NOT HAVE HCP AND DECLINES INFO AT THIS TIME. 12/17/19. HOSPITALIZATION/MAJOR DIAGNOSTIC PROCEDURE SYNCOPE CAH 03/14/13 PNEUMONIA 01/22-01/24/17 PNEUMONIA 06/2017 VITAL SIGNS WT 248.8 LBS, HT 72 IN, BMI 33.74 INDEX, BP 139/67 MM HG, HR 85 /MIN, RR 18 /MIN, TEMP 96.0 F, OXYGEN SAT % 96%, BLOOD GLUCOSE LEVEL 97 THIS MORNING, SAFE IN ENV? (Y/N) YES, NA INITIALS SC 14:12, REVIEWED BY: MT. EXAMINATION GENERAL EXAMINATION: THE PATIENT IS ALERT, ORIENTED TIMES THREE AND COOPERATIVE. HEART SHOWS REGULAR RHYTHM, NO MURMURS AND NO GALLOPS. LUNGS ARE CLEAR TO AUSCULTATION. ASSESSMENTS SPONDYLOSIS WITHOUT MYELOPATHY OR RADICULOPATHY, LUMBAR REGION - M47.816 (PRIMARY) SPONDYLOSIS WITHOUT MYELOPATHY OR RADICULOPATHY, LUMBOSACRAL REGION - M47.817 TREATMENT SPONDYLOSIS WITHOUT MYELOPATHY OR RADICULOPATHY, LUMBAR REGION SMC FACET BLOCK (PAIN)[id number] MEDICATION: VALIUM TAB 2MG ORALLY (DIAZEPAM)GHANSHYAM KILPATRICK 12/20/2019 2:50:58 PM > LOT #: [id number], EXP: 03/2020. ABDULLAHIDOMINICK 12/20/2019 2:53:45 PM > VERIFIED GHANSHYAM KILPATRICK 12/20/2019 2:56:29 PM > ADMINISTERED AT 1456. MEDICATION: OXYCODONE HCL TAB 5MG ORALLY GHANSHYAM KILPATRICK 12/20/2019 2:51:36 PM > LOT #: [id number], EXP: 04/2021. DOMINICK FERNANDO 12/20/2019 2:53:17 PM > VERIFIED GHANSHYAM KILPATRICK 12/20/2019 2:56:42 PM > ADMINISTERED AT 1456. SPONDYLOSIS WITHOUT MYELOPATHY OR RADICULOPATHY, LUMBOSACRAL REGION SMC FACET BLOCK (PAIN)[id number] OTHERS CLINICAL NOTES: PAT COMPLETED 12/17/19 1538 MT. PROCEDURES PAIN NURSING RECORD PRE-PROCEDURE IV SITE N/A, PRE-PROCEDURE ORAL MEDICATIONS OXYCODONE 5MG AND DIAZEPAM 2MG. PROCEDURE IN ROOM 1512, PHYSICIAN IN ROOM 1522, START 1528, FINISH 1533, PHYSICIAN OUT OF ROOM 1535, OUT OF ROOM 1543, STEROID KENALOG, O2 RA, ECG NORMAL SINUS, PATIENT SHIELDED YES, SAFETY STRAP YES, PREP CHLOROPREP BY Tseha KILPATRICK, RN, BSN, IV INFUSED N/A, DRESSING TEGADERM BY DR. DOOLEY LOC: FINESSEARYANGHANSHYAM 12/20/2019 3:12:01 PM > 1. ALERT, ORIENTED RESP: GHANSHYAM IKLPATRICK 12/20/2019 3:12:01 PM > 1. REGULAR, NO DYSPNEA COLOR: GHANSHYAM KILPATRICK 12/20/2019 3:12:01 PM > 1. PINK SKIN: GHANSHYAM KILPATRICK 12/20/2019 3:12:01 PM > 1. WARM, DRY POSITION: GHANSHYAM KILPATRICK 12/20/2019 3:12:01 PM > 1. PRONE VITALS: GHANSHYAM KILPATRICK 12/20/2019 3:12:01 PM > 155/68, 94% RA, HR 75, RR 18. GHANSHYAM KILPATRICK 12/20/2019 3:27:13 PM > 133/64, 95% RA, HR 74 , RR 18 . GHANSHYAM KILPATRICK 12/20/2019 3:45:07 PM > 161/95, 79% RA, HR 84, RR 18. (POST PROCEDURE). DISCHARGE: POST PAIN 07/10, DRESSING SITE DRY AND INTACT, IV N/A, GAIT STEADY, TEACHING COMPLETED, PATIENT ACKNOWLEDGES UNDERSTANDING YES, PATIENT DISCHARGED AT 1600 PN LUMBAR FACET BLOCK THERAPEUTIC PRE PROCEDURE DIAGNOSIS LUMBAR SPONDYLOSIS, LUMBOSACRAL SPONDYLOSIS POST PROCEDURE DIAGNOSIS LUMBAR SPONDYLOSIS, LUMBOSACRAL SPONDYLOSIS PROCEDURE BILATERAL L4-L5 AND BILATERAL L5-S1 LUMBAR FACET THERAPEUTIC BLOCK SURGEON DR. KEREN WHYTE FIELD SALES SPECIALIST NONE ANESTHESIA LOCAL PRE PROCEDURE NOTE THE PATIENT HAS A HISTORY OF CHRONIC LOW BACK PAIN. I EVALUATED THE PATIENT AND REVIEWED THE CHART. I WENT OVER THE RISKS, ALTERNATIVES, AND BENEFITS ASSOCIATED WITH THIS PROCEDURE. I DISCUSSED THAT THE USE OF STEROIDS MAY CONTRIBUTE TO IMMUNOSUPPRESSION OF THE PATIENT'S BODY AGAINST INFECTIONS SUCH COVID-19. THE PATIENT IS AWARE OF THE POTENTIAL COMPLICATIONS ASSOCIATED WITH THIS VIRUS, INCLUDING, BUT NOT LIMITED TO, . THE PATIENT WOULD LIKE TO PROCEED AND GIVES CONSENT TO PERFORM THE PROCEDURE. THE PATIENT DENIES UNEXPLAINABLE WEIGHT LOSS, FEVER, CHILLS, OR NEW CHANGES IN URINARY OR BOWEL CONTROL. THE PATIENT IS COVID-19 NEGATIVE DESCRIPTION OF PROCEDURE THE PATIENT WAS BROUGHT TO THE PROCEDURE ROOM AND PLACED IN THE PRONE POSITION. THE LUMBOSACRAL AREA WAS CLEANED WITH CHLORAPREP SOLUTION AND DRAPED ASEPTICALLY. THE PROCEDURE WAS DONE UNDER STERILE CONDITIONS. A TIMEOUT WAS PERFORMED WHERE LATERALITY AND THE SITE OF THE PROCEDURE WERE CHECKED AND CONFIRMED WITH EVERYONE IN THE ROOM. UNDER FLUOROSCOPIC GUIDANCE, THE TARGET POINT WAS SELECTED AT THE RIGHT AND LEFT L4-L5 AND RIGHT AND LEFT L5-S1 FACET JOINTS. TARGET POINT WAS SELECTED AFTER LATERAL ROTATION AND TILT OF THE MAGNIFIER OF THE C-ARM. I CONFIRMED AGAIN WITH EVERYONE IN THE ROOM THE LATERALITY OF THE TARGET AT 1526 ON THE LEFT AND 1531 ON THE RIGHT. LIDOCAINE 0.5% WAS USED TO NUMB THE SKIN AND THE SUBCUTANEOUS TISSUE BELOW IT. SPINAL NEEDLES, 22-GAUGE, WERE ADVANCED UNDER FLUOROSCOPIC GUIDANCE AND FOLLOWING PATIENT FEEDBACK UNTIL THE TARGETS WERE TOUCHED. THE POSITION OF THE NEEDLES WAS VERIFIED WITH AP AND LATERAL VIEWS. AFTER PROPER POSITION OF THE NEEDLES WAS ACHIEVED, ISOVUE-M DYE 30%, 0.1 ML, WAS INJECTED SHOWING ADEQUATE SPREAD OF THE DYE. KENALOG 20 MG WAS INJECTED AT EACH SITE. THEN, A SOLUTION OF 1.0 ML OF BUPIVACAINE 0.125% OF WAS USED TO FLUSH EACH SITE. THE MEDICATION WAS VERIFIED WITH THE NURSE. THERE WAS NO EVIDENCE OF BLOOD, PARESTHESIA OR CEREBROSPINAL FLUID DURING THE PROCEDURE. THE PATIENT WAS SENT TO THE RECOVERY ROOM. THE PATIENT WAS MOVING THE EXTREMITIES AND DOING WELL. THERE WERE NO COMPLICATIONS DURING THE PROCEDURE. ESTIMATED BLOOD LOSS WAS LESS THAN 5 ML. FLUOROSCOPY TIME WAS 22 SECONDS POST PROCEDURE NOTE DEPENDING ON THE RESULTS, CONSIDER AN EPIDURAL STEROID INJECTION. THE PATIENT MAY BE A CANDIDATE FOR MILD PROCEDURE VERSES VERTIFLEX THE PATIENT HAS PAIN WHEN WALKING AND STANDING STRAIGHT THAT IS RELIEVED BY SITTING OR BENDING FORWARD. THERE IS SPINAL STENOSIS IN THE MRI OF THE LUMBAR SPINAL DATED 04/2018. THE PATIENT WILL BE SEEN IN A FOLLOW UP IN THE NEXT FEW WEEKS. I AM LOOKING FOR LONG LASTING RELIEF FOR THE PATIENT WITH THIS INTERVENTION. INSTRUCTIONS WERE GIVEN, QUESTIONS WERE ANSWERED, AND THE PATIENT EXPRESSED UNDERSTANDING AND AGREES WITH THE PLAN. I, AARON MCCURDY, DOCUMENTED THE ABOVE INFORMATION ACTING A SCRIBE FOR DR. WHYTE. I HAVE REVIEWED THE ABOVE DOCUMENT, WRITTEN BY [ ], REDEYE GUNNER, AND I VERIFY THAT IT IS ACCURATE PROCEDURE CODES 31168 INJ PARAVERT F JNT L/S 1 LEV, MODIFIERS: 50 [id number] INJ PARAVERT F JNT L/S 2 LEV, MODIFIERS: 50 DISPOSITION & COMMUNICATION FOLLOW UP FOLLOW UP WITH STORY TELLER (REASON: POST THERAPEUTIC BILATERAL L4-L5, L5-S1) ELECTRONICALLY SIGNED BY KEREN WHYTE MD, MD ON 12/27/2019 AT 01:15 PM EDT DISCLAIMER : THIS IS A VISIT SUMMARY EXTRACTED FROM THE [facility] CHART. IT IS NOT A COPY OF THE [employer] PROGRESS NOTE. MTDD
== END ==
LOC: M PAIN 14:00
PROVIDERS: ATTEND Anesthesiology
DX: M47.816 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lopathy, lumbar region (principal); M47.817 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lopathy, lumbosacral region; I10 Essential (primary) hypertension; E78.00 Pure hypercholesterolemia, unspecified; E11.9 Type 2 diabetes mellitus without complications; Z85.46 Personal history of malignant neoplasm of prostate; J30.9 Allergic rhinitis, unspecified; Z87.891 Personal history of nicotine dependence; Z79.84 Long term (current) use of oral hypoglycemic drugs; Z79.899 Other long term (current) drug therapy; Z79.1 Long term (current) use of non-steroidal anti-inflammatories (NSAID)
CPT/HCPCS: 64493; 64494; J3301; Q9967

== ENCOUNTER → 2019-12-24 | Outpatient (CLI) | payer MEDICARE, MEDICAID ==
[~2019-12-24] MED LIST changes: -BUPIVACAINE HCL 0.25% 30ML VIAL As Ordered ONE; -ISOVUE-M 300 61% 15ML VIAL As Ordered ONE; -LIDOCAINE 1% SDV 30ML VIAL As Ordered ONE; -TRIAMCINOLONE ACETONIDE SUSP 40 MG/ML VIAL (J3301) As Ordered ONE; -diazePAM 2 MG TAB As Ordered ONE; -oxyCODONE 5MG TAB As Ordered ONE
--- NOTE | 2019-12-25 11:45 | REPVR ---
PROCEDURE INFORMATION: Exam: CT Maxillofacial Without Contrast, Sinus Exam date and time: 12/24/2019 2:27 PM Age: 74 years old Clinical indication: Other: Esoinophic granulomatosis w/ polyangitis egpa TECHNIQUE: Imaging protocol: CT Maxillofacial without contrast. Focus on the sinuses. Radiation optimization: All CT scans at this facility use at least one of these dose optimization techniques: automated exposure control; mA and/or kV adjustment per patient size (includes targeted exams where dose is matched to clinical indication); or iterative reconstruction. COMPARISON: CT Maxilofacial w/out contrast 03/05/2018 3:47 PM FINDINGS: Frontal sinuses: No air-fluid levels. Mild mucosal thickening opacifies the left frontal recess. The left frontal sinus elsewhere is clear. The right frontal sinus is clear. Very trace mucosal disease in the right frontal recess without narrowing. Ethmoid air cells: Mild bilateral ethmoid mucosal thickening. Sphenoid sinuses: The left sphenoid sinus and sphenoid ostium are clear and patent. The right sphenoid sinus is clear. Mucosal disease does narrow and potentially opacified the right sphenoid ostium. Maxillary sinuses: Mild bilateral maxillary sinus mucosal thickening. Mucosal disease does extend along the ostiomeatal units which remain patent. Nasal cavity/Septum: No nasal cavity masses. The right middle turbinate is paradoxical. Orbital cavity: Thinning of the lenses of the globes consistent with prior lens surgery. No acute orbital findings. Bones/joints: No acute fracture seen. There is an old right medial orbital wall fracture. A chronic appearing mildly impacted anterior nasal bone fracture. Soft tissues: Unremarkable. IMPRESSION: 1. Mild, chronic sinusitis without significant change. 2. Mucosal disease does opacify the left frontal recess and right sphenoid ostium but there is no significant associated chronic sinusitis. Electronically signed by: Meghna Shin On 12/25/2019 11:45:19 AM
== END ==
LOC: M RAD 14:20
PROVIDERS: ATTEND Internal Medicine
DX: J32.9 Chronic sinusitis, unspecified (principal); 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 [Churg-Strauss]

== ENCOUNTER 2019-12-30 13:45 | Outpatient (RCR) | payer MEDICARE, MEDICAID | END 2020-01-01 | LOC: M PT 13:45 | PROVIDERS: ATTEND Internal Medicine | DX: M54.5 Low back pain (principal) ==

== ENCOUNTER → 2020-01-03 | Outpatient (CLI) | payer MEDICARE, MEDICAID ==
--- NOTE | 2020-01-05 01:17 | ECWPNPC ---
PATIENT NAME: OWEN PHILLIPS : 1945 GENDER: MALE VISIT DATE: 01/03/2020 DISCHARGE DATE: 01/03/20 1418 VISIT LOCKED DATE TIME: PHYSICIAN: HARI VIGIL RESOURCE: HARI VIGIL REASON FOR APPOINTMENT 1. POST BILATERAL L45 L5-S1 LUMBAR FACET BLOCK THERAPEUTIC HISTORY OF PRESENT ILLNESS GENERAL: HERE FOR POST PROCEDURE FOLLOW-UP. HAD BILATERAL L4-5, L5-S1 LUMBAR FACET BLOCK THERAPEUTIC ON 12/20/2019. CONTINUES TO BENEFIT WITH IMPROVEMENT IN LOW BACK PAIN SINCE PROCEDURE. CHIEF AREA OF PAIN IS UPPER BACK. REVIEWED MRI OF HIS CERVICAL SPINE. DISCUSSED TREATMENT OPTIONS. PAIN IN THIS REGION IS AGGRAVATED WITH RANGE OF JOINT MOTION OF THE NECK OR USE OF ARMS. -. FALL RISK SCREENING: SCREENING :NO FALLS REPORTED IN THE LAST YEAR PAIN SCREENING: PATIENT HAS A COMPLAINT OF ACUTE OR CHRONIC PAIN :YES LOCATION OF PAIN:LOW BACK, LEG(S) INTENSITY OF PAIN (SCALE OF 1 TO 10):3 WHAT DOES YOUR PAIN FEEL LIKE:ACHING, INTERMITTENT DURATION:MAINLY DURING THE DAY, AWAKENS FROM SLEEP PAIN IS INCREASED BY:ACTIVITIES, PROLONGED STANDING PLAN/GOALS/TREATMENT/INTERVENTION/FOLLOW UP:SEE PLAN NURSING NOTE: -. PAIN CENTER INTAKE QUESTIONS: DO YOU HAVE A HISTORY OF MRSA? :NO DO YOU TAKE A BLOOD THINNERS? :NO DO YOU HAVE ANY BLEEDING DISORDERS? :NO ANY NEW NUMBNESS OR WEAKNESS IN YOUR LEGS OR ARMS? :NO ANY PACEMAKER,DEFIBRILLATOR, OR DORSAL COLUMN STIMULATOR? :NO DO YOU HAVE ANY RASHES OR OPEN SORES? :NO ARE YOU ALLERGIC TO IV DYE? :NO ARE YOU DIABETIC? :NO ANY NEW PROBLEMS WITH YOUR MEDICATIONS? :NO HAVE YOU RECEIVED A VACCINE IN THE PAST 30 DAYS? :NO DO YOU PLAN TO RECEIVE A VACCINE IN THE NEXT 21 DAYS? :NO DO YOU NEED ANY PRESCRIPTION? :NO DO YOU TAKE ANY IMMUNOSUPPRESSIVE MEDICATIONS? :NO IS THERE A CHANCE YOU COULD BE ? :NO ARE YOU BREAST FEEDING? :NO CURRENT MEDICATIONS TAKING NUCALA 100 MG/ML SOLUTION PREFILLED SYRINGE DIRECTED SUBCUTANEOUS MONTHLY TAKING GEMFIBROZIL 600 MG TABLET 1 TABLET ORALLY DAILY TAKING JANUVIA 100 MG TABLET 1 TABLET ORALLY ONCE A DAY TAKING LISINOPRIL 20 MG TABLET 1 TABLET ORALLY ONCE A DAY TAKING PRAVASTATIN 40 20 MG TABLET 1 TAB(S) ORAL DAILY TAKING AMLODIPINE BESYLATE 10 MG TABLET 1 TABLET ORALLY ONCE A DAY TAKING VITAMIN B-6 50 MG TABLET 1 TABLET ORALLY ONCE A DAY TAKING ACETAMINOPHEN 650 MG TABLET 1 TABLET NEEDED ORALLY EVERY 6 HRS TAKING OMEPRAZOLE 20 MG CAPSULE DELAYED RELEASE 1 CAPSULE ORALLY ONCE A DAY TAKING OXYBUTYNIN CHLORIDE ER 10 MG TABLET EXTENDED RELEASE 24 HOUR 1 TABLET ORALLY ONCE A DAY TAKING IBUPROFEN 600 MG TABLET 1 TABLET WITH FOOD OR MILK NEEDED ORALLY THREE TIMES A DAY TAKING GABAPENTIN 300 MG TABLET 1 TABLET ORALLY TID MEDICATION LIST REVIEWED AND RECONCILED WITH THE PATIENT PAST MEDICAL HISTORY ARTHRITIS HYPERTENSION HYPERCHOLESTEROLEMIA DM BILATERAL CATARACT REMOVAL NEPHROLITHIASIS(SPONTANOUS PASSAGE) SYNCOPE PROSTATE CA, [id number], VANI 7 (3+4) - S/P PROSTATECTOMY ENVIRONMENTAL ALLERGIES PNEUMONIA ALLERGIES N.K.D.A. SURGICAL HISTORY B/L CATARACT SURGERY 2013 BACK INJECTIONS X 2 12/2012 TRUS 07/23/2013 ROBOTIC ASSISTED RADICAL PROSTATECTOMY AND BILATERAL PELVIC LYMPH NODE DIESSECTION 09/07/13 FAMILY HISTORY FATHER: 73 YRS, STROKE, DIAGNOSED WITH UNSPECIFIED CEREBRAL ARTERY OCCLUSION WITH CEREBRAL INFARCTION MOTHER: 74 YRS, CANCER IN HIP, OTHER MALIGNANT NEOPLASM OF UNSPECIFIED SITE SIBLINGS: ALIVE, 1 BROTHER OLDER AND 1 SISTER YOUNGER LIVING 4 BROTHER(S) , 3 SISTER(S) . 1 SON(S) , 3 DAUGHTER(S) - HEALTHY. NO KNOWN FAMILY HISTORY OF ANY UROLOGICALLY RELATED DISEASES CANCERS. SOCIAL HISTORY GENERAL: TOBACCO USE ARE YOU A:FORMER SMOKER HOW LONG HAS IT BEEN SINCE YOU LAST SMOKED?> 10 YEARS LATEX QUESTIONNAIRE LATEX ALLERGY : HAVE YOU EVER DEVELOPED ANY TYPE OF REACTION AFTER HANDLING LATEX PRODUCTS SUCH RUBBER GLOVES, CONDOMS, DIAPHRAGMS, BALLOONS, SOCKS, OR UNDERWEAR?NO LATEX ALLERGY : HAVE YOU EVER DEVELOPED ANY TYPE OF REACTION DURING OR AFTER DENTAL APPOINTMENT, VAGINAL/RECTAL EXAMINATION, SURGICAL PROCEDURE, OR ANY OTHER EXPOSURE?NO DATE ASKED : 12/09/2019 LATEX RISK : HAVE YOU EVER HAD ANY DIFFICULTY BREATHING OR HIVES AFTER EATING OR HANDLING ANY FRUITS, OR VEGETABLES; SUCH KIWI, BANANAS, STONE FRUITS, OR CHESTNUTSNO LATEX RISK : DO YOU HAVE A PREVIOUS PERSONAL HISTORY OF MORE THAN NINE SURGERIES, SPINA BIFIDA, OR REPEATED CATHERIZATIONS? NO LATEX RISK : ARE YOU FREQUENTLY EXPOSED TO LATEX PRODUCTS IN YOUR OCCUPATION?NO ALCOHOL SCREENING POINTS: 0, INTERPRETATION: NEGATIVE. RECREATIONAL DRUG USE DENIES. CAFFEINE 2-5/DAY. SEXUAL HX HAD SEX IN THE LAST 12 MONTHS (VAGINAL, ORAL, OR ANAL)?: YES, WITH: WOMEN ONLY, USE PROTECTION?: NO, HAVE YOU EVER HAD AN STD?: NO. RESTORATIONIST CONGREGATIONAL. LANGUAGE JAPANESE. 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 EXERCISE: BIKES. MARITAL STATUS: . OTHERS AT HOME: SIGNIFICANT OTHER/GIRLFRIEND. PATIENT DESCRIBES PAIN :ACHING, HAVE IT ALL THE TIME FROM 0-10, WHAT LEVEL IS YOUR PAIN TODAY?8 PRECIPITATING FACTORS SITTING ALLEVIATING FACTORS ACTIVITY, WALKING IMPACT ON FUNCTION YES PAIN CLINIC PFS, CLERGY, PUBLIC HEALTH REFERRALS HAS THE PATIENT BEEN EDUCATED REGARDING HIS/HER PLAN OF CARE?YES HAS THE PATIENT BEEN EDUCATED REGARDING PAIN, THE RISK FOR PAIN, THE IMPORTANCE OF EFFECTIVE PAIN MANAGEMENT, AND THE PAIN ASSESSMENT PROCESS?YES ADVANCE DIRECTIVE ADVANCE DIRECTIVE DISCUSSED WITH PATIENT:YES PT DOES NOT HAVE HCP AND DECLINES INFO AT THIS TIME. 01/03/20. HOSPITALIZATION/MAJOR DIAGNOSTIC PROCEDURE SYNCOPE CAH 03/14/13 PNEUMONIA 01/22-01/24/17 PNEUMONIA 06/2017 REVIEW OF SYSTEMS CONSTITUTIONAL: ANY RECENT FEVER NO . CHILLS NO . WEIGHT CHANGE OF UNKNOWN REASONS NO . GASTROENTEROLOGY: NEW UNEXPLAINABLE CHANGES IN BOWEL CONTROL NO . CONSTIPATION NO . GENITOURINARY: ANY NEW CHANGE IN BLADDER CONTROL? NO . NEUROLOGY: NEW ONSET DIZZINESS OR NEUROLOGICAL CHANGES NOT MENTIONED NO . NEW NUMBNESS OR PAIN PATTERNS NOT MENTIONED AND PERTINENT TO TODAY'S VISIT NO . CARDIOLOGY: NEW CHEST PRESSURE NO . NEW CHEST PAIN NO . RESPIRATORY: UNEXPLAINABLE COUGH NO . NEW SHORTNESS OF BREATH NO . VITAL SIGNS WT 249.6 LBS, HT 72 IN, BMI 33.85 INDEX, BP 129/62 MM HG, HR 76 /MIN, RR 18 /MIN, TEMP 96.0 F, OXYGEN SAT % 96%, SAFE IN ENV? (Y/N) YES, NA INITIALS SC 13:44, REVIEWED BY: TRENT KILPATRICK, RN, BSN. EXAMINATION GENERAL EXAMINATION: GENERALNO ACUTE DISTRESS, WELL NOURISHED AND HYDRATED. PSYCHAPPROPRIATE MOOD AND AFFECT . LUNGS:CLEAR TO AUSCULTATION BILATERALLY, NO WHEEZES, RHONCHI, RALES. HEART:NO MURMURS, REGULAR RATE AND RHYTHM. THORACIC SPINE: TRIGGER POINTS:, ELICITED WITH PALPATION OVER MID THORACIC MUSCLES WITH INCREASE IN PAIN NOTED IN THESE AREAS WITH RANGE OF JOINT MOTION OF THE SPINE. DIAGNOSTIC TESTS REVIEWEDMRI CERVICAL SPINE 2019 . ASSESSMENTS OTHER CHRONIC PAIN - G89.29 (PRIMARY) MYALGIA, OTHER SITE - M79.18 TREATMENT OTHER CHRONIC PAIN PAIN PROCEDURE LOGDATE OF OKUKRDOFV45/19/20PROCEDURE:BILAT LUMBAR FACET BLOCK L4/5-/5/F0OTHODV OF PRE SEDATEVALIUM 2, OXY 5RESULT:MARKED REDUCTION IN PAIN CONTINUES TODAY NOTES: TRIGGER POINT INJECTIONS MID BACK/ THORACIC. 01/03/20 1413 PATIENT GIVEN AND REVIEWED PRE PROCEDURE INSTRUCTIONS WITH NURSE IN PREPARATION FOR TRIGGER POINT INJECTIONS, PATIENT VERBALIZES UNDERSTANDING. PROCEDURE CODES FA211 ESTABILISHED PATIENT [facility] FACILITY CHARGE DISPOSITION & COMMUNICATION FOLLOW UP POST PROCEDURE (REASON: TRIGGER POINT INJECTIONS MID BACK/ THORACIC) ELECTRONICALLY SIGNED BY BEVERLEY PUENTE ON 01/04/2020 AT 01:17 PM EST DISCLAIMER : THIS IS A VISIT SUMMARY EXTRACTED FROM THE [employer] CHART. IT IS NOT A COPY OF THE [employer] PROGRESS NOTE. CAIO
== END ==
LOC: M PAIN 13:30
PROVIDERS: ATTEND Nurse Practitioner Family
DX: G89.29 Other chronic pain (principal); M79.18 Myalgia, other site; I10 Essential (primary) hypertension; E11.9 Type 2 diabetes mellitus without complications; Z85.46 Personal history of malignant neoplasm of prostate; Z87.891 Personal history of nicotine dependence; Z79.84 Long term (current) use of oral hypoglycemic drugs; Z79.899 Other long term (current) drug therapy

== ENCOUNTER → 2020-01-12 | Outpatient (CLI) | payer MEDICARE, MEDICAID | LOC: M LABSMTC 10:09 | PROVIDERS: ATTEND Anesthesiology | DX: Z20.828 Contact with and (suspected) exposure to other viral communicable diseases (principal) ==

== ENCOUNTER → 2020-01-17 | Outpatient (CLI) | payer MEDICARE, MEDICAID ==
[~2020-01-17] MED LIST changes: +BUPIVACAINE HCL 0.25% 10ML VIAL As Ordered ONE; +BUPIVACAINE HCL 0.25% 30ML VIAL As Ordered ONE; +TRIAMCINOLONE ACETONIDE SUSP 40 MG/ML VIAL (J3301) As Ordered ONE; +diazePAM 5 MG TAB As Ordered ONE; +oxyCODONE 5MG TAB As Ordered ONE
--- NOTE | 2020-01-19 00:46 | ECWPNPC ---
PATIENT NAME: OWEN PHILLIPS : 1945 GENDER: MALE VISIT DATE: 01/17/2020 DISCHARGE DATE: 01/17/208 VISIT LOCKED DATE TIME: PHYSICIAN: KEREN WHYTE MD RESOURCE: KEREN WHYTE MD REASON FOR APPOINTMENT 1. TRIGGER POINT INJECTIONS MID BACK/ THORACIC HISTORY OF PRESENT ILLNESS GENERAL: -. FALL RISK SCREENING: SCREENING :NO FALLS REPORTED IN THE LAST YEAR PAIN SCREENING: PATIENT HAS A COMPLAINT OF ACUTE OR CHRONIC PAIN :YES LOCATION OF PAIN:BACK INTENSITY OF PAIN (SCALE OF 1 TO 10):9 WHAT DOES YOUR PAIN FEEL LIKE:ACHING, INTERMITTENT DURATION:AWAKENS FROM SLEEP PAIN IS INCREASED BY:ACTIVITIES, PROLONGED STANDING PLAN/GOALS/TREATMENT/INTERVENTION/FOLLOW UP:SEE PLAN NURSING NOTE: -. PAIN CENTER INTAKE QUESTIONS: DO YOU HAVE A HISTORY OF MRSA? :NO DO YOU TAKE A BLOOD THINNERS? :NO DO YOU HAVE ANY BLEEDING DISORDERS? :NO ANY NEW NUMBNESS OR WEAKNESS IN YOUR LEGS OR ARMS? :NO ANY PACEMAKER,DEFIBRILLATOR, OR DORSAL COLUMN STIMULATOR? :NO DO YOU HAVE ANY RASHES OR OPEN SORES? :NO ARE YOU ALLERGIC TO IV DYE? :NO ARE YOU DIABETIC? :YES BORDERLINE DIABETIC ANY NEW PROBLEMS WITH YOUR MEDICATIONS? :NO HAVE YOU RECEIVED A VACCINE IN THE PAST 30 DAYS? :NO DO YOU PLAN TO RECEIVE A VACCINE IN THE NEXT 21 DAYS? :NO DO YOU TAKE ANY IMMUNOSUPPRESSIVE MEDICATIONS? :NO ANY HISTORY OF SEIZURES? :NO ANY HISTORY OF CARDIAC ISSUES OR EVENTS? :NO DO YOU HAVE SLEEP APNEA? :NO ANY RECENT HEAD INJURY? :NO DO YOU HAVE ANY NEW INFECTIONS? :NO IS THERE A CHANCE YOU COULD BE ? :NO ARE YOU BREAST FEEDING? :NO WHEN DID YOU LAST EAT? : 01/16/20 190 WHEN DID YOU LAST DRINK? : 01/17/20 0900 WHAT DID YOU LAST DRINK? : WATER NAME OF PERSON DRIVING YOU HOME? : BINA (FRIEND) DO YOU HAVE ANY OTHER QUESTIONS OR CONCERNS? : NO CURRENT MEDICATIONS TAKING NUCALA 100 MG/ML SOLUTION PREFILLED SYRINGE DIRECTED SUBCUTANEOUS MONTHLY, NOTES: 01/08/20 -01/10/20 TAKING GEMFIBROZIL 600 MG TABLET 1 TABLET ORALLY DAILY, NOTES: 01/16/202199 TAKING JANUVIA 100 MG TABLET 1 TABLET ORALLY ONCE A DAY, NOTES: 01/16/202199 TAKING LISINOPRIL 20 MG TABLET 1 TABLET ORALLY ONCE A DAY, NOTES: 01/16/202199 TAKING PRAVASTATIN 40 20 MG TABLET 1 TAB(S) ORAL DAILY, NOTES: 01/16/202199 TAKING AMLODIPINE BESYLATE 10 MG TABLET 1 TABLET ORALLY ONCE A DAY, NOTES: 01/16/202199 TAKING VITAMIN B-6 50 MG TABLET 1 TABLET ORALLY ONCE A DAY, NOTES: 01/16/202199 TAKING ACETAMINOPHEN 650 MG TABLET 1 TABLET NEEDED ORALLY EVERY 6 HRS, NOTES: 01/16/202199 TAKING OMEPRAZOLE 20 MG CAPSULE DELAYED RELEASE 1 CAPSULE ORALLY ONCE A DAY, NOTES: 01/17/20 0900 TAKING OXYBUTYNIN CHLORIDE ER 10 MG TABLET EXTENDED RELEASE 24 HOUR 1 TABLET ORALLY ONCE A DAY, NOTES: 01/16/202199 TAKING IBUPROFEN 600 MG TABLET 1 TABLET WITH FOOD OR MILK NEEDED ORALLY THREE TIMES A DAY, NOTES: 01/16/202199 TAKING GABAPENTIN 300 MG TABLET 1 TABLET ORALLY TID, NOTES: 01/16/20 MEDICATION LIST REVIEWED AND RECONCILED WITH THE PATIENT PAST MEDICAL HISTORY ARTHRITIS HYPERTENSION HYPERCHOLESTEROLEMIA DM BILATERAL CATARACT REMOVAL NEPHROLITHIASIS(SPONTANOUS PASSAGE) SYNCOPE PROSTATE CA, [id number], VANI 7 (3+4) - S/P PROSTATECTOMY ENVIRONMENTAL ALLERGIES PNEUMONIA ALLERGIES N.K.D.A. SURGICAL HISTORY B/L CATARACT SURGERY 2013 BACK INJECTIONS X 2 12/2012 TRUS 07/23/2013 ROBOTIC ASSISTED RADICAL PROSTATECTOMY AND BILATERAL PELVIC LYMPH NODE DIESSECTION 09/07/13 FAMILY HISTORY FATHER: 73 YRS, STROKE, DIAGNOSED WITH UNSPECIFIED CEREBRAL ARTERY OCCLUSION WITH CEREBRAL INFARCTION MOTHER: 74 YRS, CANCER IN HIP, OTHER MALIGNANT NEOPLASM OF UNSPECIFIED SITE SIBLINGS: ALIVE, 1 BROTHER OLDER AND 1 SISTER YOUNGER LIVING 4 BROTHER(S) , 3 SISTER(S) . 1 SON(S) , 3 DAUGHTER(S) - HEALTHY. NO KNOWN FAMILY HISTORY OF ANY UROLOGICALLY RELATED DISEASES CANCERS. SOCIAL HISTORY GENERAL: TOBACCO USE ARE YOU A:FORMER SMOKER HOW LONG HAS IT BEEN SINCE YOU LAST SMOKED?> 10 YEARS LATEX QUESTIONNAIRE LATEX ALLERGY : HAVE YOU EVER DEVELOPED ANY TYPE OF REACTION AFTER HANDLING LATEX PRODUCTS SUCH RUBBER GLOVES, CONDOMS, DIAPHRAGMS, BALLOONS, SOCKS, OR UNDERWEAR?NO LATEX ALLERGY : HAVE YOU EVER DEVELOPED ANY TYPE OF REACTION DURING OR AFTER DENTAL APPOINTMENT, VAGINAL/RECTAL EXAMINATION, SURGICAL PROCEDURE, OR ANY OTHER EXPOSURE?NO LATEX RISK : HAVE YOU EVER HAD ANY DIFFICULTY BREATHING OR HIVES AFTER EATING OR HANDLING ANY FRUITS, OR VEGETABLES; SUCH KIWI, BANANAS, STONE FRUITS, OR CHESTNUTSNO LATEX RISK : DO YOU HAVE A PREVIOUS PERSONAL HISTORY OF MORE THAN NINE SURGERIES, SPINA BIFIDA, OR REPEATED CATHERIZATIONS? NO LATEX RISK : ARE YOU FREQUENTLY EXPOSED TO LATEX PRODUCTS IN YOUR OCCUPATION?NO DATE ASKED : 01/14/2020 ALCOHOL SCREENING POINTS: 0, INTERPRETATION: NEGATIVE. RECREATIONAL DRUG USE DENIES. CAFFEINE 2-5/DAY. SEXUAL HX HAD SEX IN THE LAST 12 MONTHS (VAGINAL, ORAL, OR ANAL)?: YES, WITH: WOMEN ONLY, USE PROTECTION?: NO, HAVE YOU EVER HAD AN STD?: NO. ANABAPTISM CHRISTIANITY. LANGUAGE ALBANIAN. 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 EXERCISE: BIKES. MARITAL STATUS: . OTHERS AT HOME: SIGNIFICANT OTHER/GIRLFRIEND. PATIENT DESCRIBES PAIN :ACHING, HAVE IT ALL THE TIME FROM 0-10, WHAT LEVEL IS YOUR PAIN TODAY?8 PRECIPITATING FACTORS SITTING ALLEVIATING FACTORS ACTIVITY, WALKING IMPACT ON FUNCTION YES PAIN CLINIC PFS, CLERGY, PUBLIC HEALTH REFERRALS HAS THE PATIENT BEEN EDUCATED REGARDING HIS/HER PLAN OF CARE?YES HAS THE PATIENT BEEN EDUCATED REGARDING PAIN, THE RISK FOR PAIN, THE IMPORTANCE OF EFFECTIVE PAIN MANAGEMENT, AND THE PAIN ASSESSMENT PROCESS?YES ADVANCE DIRECTIVE ADVANCE DIRECTIVE DISCUSSED WITH PATIENT:YES PT DOES NOT HAVE HCP AND DECLINES INFO AT THIS TIME. 01/14/20 HOSPITALIZATION/MAJOR DIAGNOSTIC PROCEDURE SYNCOPE CAH 03/14/13 PNEUMONIA 01/22-01/24/17 PNEUMONIA 06/2017 VITAL SIGNS WT 244.2 LBS, HT 72 IN, BMI 33.12 INDEX, BP 132/80 MM HG, HR 98 /MIN, RR 18 /MIN, TEMP 97.8 F, OXYGEN SAT % 94%, SAFE IN ENV? (Y/N) YES, NA INITIALS SC 13:49, REVIEWED BY: MTM. FINESSE, METAL SPRAYER. EXAMINATION GENERAL EXAMINATION: THE PATIENT IS ALERT, ORIENTED TIMES THREE AND COOPERATIVE. HEART SHOWS REGULAR RHYTHM, NO MURMURS AND NO GALLOPS. LUNGS ARE CLEAR TO AUSCULTATION. ASSESSMENTS MYALGIA, OTHER SITE - M79.18 (PRIMARY) TREATMENT MYALGIA, OTHER SITE MEDICATION: VALIUM TAB 5MG ORALLY (DIAZEPAM)WILLIAM FRANKEL 01/17/2020 2:01:49 PM > VERIFIED GHANSHYAM KILPATRICK 01/17/2020 2:03:16 PM > LOT # [id number] EXP: 06/21. ADMINISTERED. MEDICATION: OXYCODONE HCL TAB 5MG ORALLY WILLIAM FRANKEL 01/17/2020 2:02:06 PM > VERIFIED GHANSHAYM KILPATRICK 01/17/2020 2:03:46 PM > LOT # [id number] EXP: 04/24. ADMINISTERED. PROCEDURES PAIN NURSING RECORD PRE-PROCEDURE IV SITE N/A, PRE-PROCEDURE ORAL MEDICATIONS YES SEE TREATMENT SECTION PROCEDURE IN ROOM 1330 UPON ARRIVAL TO CLINIC, PHYSICIAN IN ROOM 1423, START 1426, FINISH 1429, PHYSICIAN OUT OF ROOM 1430, OUT OF ROOM 1445, STEROID KENALOG, O2 RA, ECG N/A, PATIENT SHIELDED NO, SAFETY STRAP NO, PREP ALCOHOL DR. WHYTE, IV INFUSED N/A, DRESSING TEGADERM Tesha KILPATRICK, METAL SPRAYER LOC: GHANSHYAM KILPATRICK 01/17/2020 1:30:30 PM > 1. ALERT, ORIENTED RESP: GHANSHYAM KILPATRICK 01/17/2020 1:30:30 PM > 1. REGULAR, NO DYSPNEA COLOR: GHANSHYAM KILPATRICK 01/17/2020 1:30:30 PM > 1. PINK SKIN: GHANSHYAM KILPATRICK 01/17/2020 1:30:30 PM > 1. WARM, DRY POSITION: GHANSHYAM KILPATRICK 01/17/2020 1:30:30 PM > 4. OTHER, SITTING VITALS: GHANSHYAM KILPATRICK 01/17/2020 2:35:00 PM > POST PROCEDURE 134/75, 100, 96% RA, 18. DISCHARGE: POST PAIN 07/10, DRESSING SITE DRY AND INTACT, IV N/A, GAIT STEADY, TEACHING COMPLETED, PATIENT ACKNOWLEDGES UNDERSTANDING YES, PATIENT DISCHARGED AT 1445 PN TRIGGER POINT INJECTION WITH STEROIDS PRE PROCEDURE DIAGNOSIS 1. MYALGIA 2. PAIN AT BILATERAL THORACIC AREA POST PROCEDURE DIAGNOSIS 1. MYALGIA 2. PAIN AT BILATERAL THORACIC AREA PROCEDURE TRIGGER POINT INJECTION AT BILATERAL THORACIC AREA SURGEON DR. KEREN WHYTE DIE DEVELOPER NONE ANESTHESIA LOCAL PRE PROCEDURE NOTE THE PATIENT HAS A HISTORY OF CHRONIC PAIN AT THE RIGHT AND LEFT THORACIC AREA. I EVALUATED THE PATIENT AND REVIEWED THE CHART. THERE IS EVIDENCE OF BANDS OF TISSUE WITH RESTRICTION OF MOVEMENT AND PRESENCE OF TRIGGER POINT AT THE RIGHT AND LEFT THORACIC AREA. I WENT OVER THE RISKS, ALTERNATIVES, AND BENEFITS ASSOCIATED WITH THIS PROCEDURE. THE PATIENT WOULD LIKE TO PROCEED AND GIVE CONSENT TO PERFORMED THE PROCEDURE. THE PATIENT DENIES UNEXPLAINABLE WEIGHT LOSS, FEVER, CHILLS, OR NEW CHANGES IN URINARY OR BOWEL CONTROL. THE PATIENT IS COVID-19 NEGATIVE DESCRIPTION OF PROCEDURE THE PATIENT WAS BROUGHT TO THE PROCEDURE ROOM AND PLACED IN THE SITTING POSITION. THE AREA WAS CLEANED WITH ALCOHOL. THE PROCEDURE WAS DONE USING ASEPTIC STERILE TECHNIQUE. A TIMEOUT WAS PERFORMED WHERE LATERALITY AND THE SITE OF THE PROCEDURE WERE CHECKED AND CONFIRMED WITH EVERYONE IN THE ROOM. USING A 25-GAUGE NEEDLE, TRIGGER POINTS WERE INJECTED AT THE RIGHT AND LEFT LOWER BACK AREA WITH A TOTAL OF 40 ML OF BUPIVACAINE 0.25% AND KENALOG 40 MG. THE MEDICATIONS WERE VERIFIED WITH THE NURSE. THERE WAS NO EVIDENCE OF BLOOD OR PARESTHESIA DURING THE PROCEDURE. THE PATIENT WAS SENT TO THE RECOVERY ROOM. THE PATIENT WAS MOVING THE EXTREMITIES AND DOING WELL. THERE WERE NO COMPLICATIONS DURING THE PROCEDURE. ESTIMATED BLOOD LOSS WAS LESS THAN 5 ML POST PROCEDURE NOTE THE PATIENT IS INTERESTED WITH HELP FOR HIS NECK AND ARM PAIN. HE IS GOING TO DISCUSS THIS WITH HIS PRIMARY TO OBTAIN A REFERRAL FOR HIS NECK AND UPPER BACK. THE PROCEDURE DONE WAS DISCUSSED WITH THE PATIENT. THE PATIENT WILL BE SEEN IN A FOLLOW UP IN THE NEXT FEW WEEKS. I AM LOOKING FOR LONG LASTING PAIN RELIEF FOR THE PATIENT WITH THIS INTERVENTION. INSTRUCTIONS WERE GIVEN, QUESTIONS WERE ANSWERED, AND THE PATIENT EXPRESSED UNDERSTANDING AND AGREES WITH THE PLAN. I, AARON MCCURDY, DOCUMENTED THE ABOVE INFORMATION ACTING A SCRIBE FOR DR. WHYTE. I HAVE REVIEWED THE ABOVE DOCUMENT, WRITTEN BY AARON MCCURDY, MULTICUT LINE OPERATOR, AND I VERIFY THAT IT IS ACCURATE PROCEDURE CODES 15948 INJ TRIGGER POINT 03/04 [facility] DISPOSITION & COMMUNICATION FOLLOW UP FOLLOW UP WITH PAEDIATRICIAN (REASON: POST TPI BILATERAL THORACIC) ELECTRONICALLY SIGNED BY KEREN WHYTE MD, MD ON 01/18/2020 AT 09:58 AM EST DISCLAIMER : THIS IS A VISIT SUMMARY EXTRACTED FROM THE [employer] CHART. IT IS NOT A COPY OF THE [employer] PROGRESS NOTE. CAIO
== END ==
LOC: M PAIN 13:30
PROVIDERS: ATTEND Anesthesiology
DX: M79.18 Myalgia, other site (principal); E11.9 Type 2 diabetes mellitus without complications; I10 Essential (primary) hypertension; Z85.46 Personal history of malignant neoplasm of prostate; Z87.891 Personal history of nicotine dependence; Z79.84 Long term (current) use of oral hypoglycemic drugs; Z79.899 Other long term (current) drug therapy
CPT/HCPCS: 20552; J3301

== ENCOUNTER 2020-01-26 13:44 | Outpatient (RCR) | payer MEDICARE, MEDICAID ==
[~2020-01-26 13:44] MED LIST changes: -BUPIVACAINE HCL 0.25% 10ML VIAL As Ordered ONE; -BUPIVACAINE HCL 0.25% 30ML VIAL As Ordered ONE; -TRIAMCINOLONE ACETONIDE SUSP 40 MG/ML VIAL (J3301) As Ordered ONE; -diazePAM 5 MG TAB As Ordered ONE; -oxyCODONE 5MG TAB As Ordered ONE
== END 2020-01-31 ==
LOC: M PT 13:44
PROVIDERS: ATTEND Internal Medicine
DX: M54.5 Low back pain (principal)

== ENCOUNTER → 2020-01-31 | Outpatient (CLI) | payer MEDICARE, MEDICAID ==
--- NOTE | 2020-02-02 02:44 | ECWPNPC ---
PATIENT NAME: OWEN PHILLIPS : 1945 GENDER: MALE VISIT DATE: 01/31/2020 DISCHARGE DATE: 01/31/20 1500 VISIT LOCKED DATE TIME: PHYSICIAN: HARI VIGIL RESOURCE: HARI VIGIL REASON FOR APPOINTMENT 1. POST TRIGGER POINT INJECTIONS MID BACK/ THORACIC HISTORY OF PRESENT ILLNESS GENERAL: HERE FOR POST PROCEDURE FOLLOW-UP. HAD TRIGGER POINT INJECTIONS BILATERAL THORACIC REGION ON 01/17/2020. REPORTING MARKED REDUCTION IN PAIN IN THAT REGION SINCE PROCEDURE. CHIEF AREA OF PAIN IS NECK AND LOW BACK. STATES WHEN HE TURNS HIS NECK HE HAS SEVERE INCREASES IN NECK PAIN BILATERALLY. STATES USE OF HIS ARMS CAUSES INCREASE IN NECK PAIN.-. FALL RISK SCREENING: SCREENING :NO FALLS REPORTED IN THE LAST YEAR PAIN SCREENING: PATIENT HAS A COMPLAINT OF ACUTE OR CHRONIC PAIN :YES LOCATION OF PAIN: LOW BACK, LEFT LEG, NECK INTENSITY OF PAIN (SCALE OF 1 TO 10):6 WHAT DOES YOUR PAIN FEEL LIKE:ACHING "HURT" DURATION:CONTINOUS, AWAKENS FROM SLEEP PAIN IS INCREASED BY:ACTIVITIES, PROLONGED STANDING, OTHERS PAIN WORSENED WITH DRIVING. PLAN/GOALS/TREATMENT/INTERVENTION/FOLLOW UP:SEE PLAN NURSING NOTE: -. PAIN CENTER INTAKE QUESTIONS: DO YOU HAVE A HISTORY OF MRSA? :NO DO YOU TAKE A BLOOD THINNERS? :NO DO YOU HAVE ANY BLEEDING DISORDERS? :NO ANY NEW NUMBNESS OR WEAKNESS IN YOUR LEGS OR ARMS? :NO ANY PACEMAKER,DEFIBRILLATOR, OR DORSAL COLUMN STIMULATOR? :NO DO YOU HAVE ANY RASHES OR OPEN SORES? :NO ARE YOU ALLERGIC TO IV DYE? :NO ARE YOU DIABETIC? :YES MEDICATION CONTROLLED/ BORDERLINE ANY NEW PROBLEMS WITH YOUR MEDICATIONS? :NO HAVE YOU RECEIVED A VACCINE IN THE PAST 30 DAYS? :NO DO YOU PLAN TO RECEIVE A VACCINE IN THE NEXT 21 DAYS? :NO DO YOU NEED ANY PRESCRIPTION? :NO DO YOU TAKE ANY IMMUNOSUPPRESSIVE MEDICATIONS? :NO IS THERE A CHANCE YOU COULD BE ? :NO ARE YOU BREAST FEEDING? :NO CURRENT MEDICATIONS TAKING NUCALA 100 MG/ML SOLUTION PREFILLED SYRINGE DIRECTED SUBCUTANEOUS MONTHLY TAKING GEMFIBROZIL 600 MG TABLET 1 TABLET ORALLY DAILY TAKING JANUVIA 100 MG TABLET 1 TABLET ORALLY ONCE A DAY TAKING LISINOPRIL 20 MG TABLET 1 TABLET ORALLY ONCE A DAY TAKING PRAVASTATIN 40 20 MG TABLET 1 TAB(S) ORAL DAILY TAKING AMLODIPINE BESYLATE 10 MG TABLET 1 TABLET ORALLY ONCE A DAY TAKING VITAMIN B-6 50 MG TABLET 1 TABLET ORALLY ONCE A DAY TAKING ACETAMINOPHEN 650 MG TABLET 1 TABLET NEEDED ORALLY EVERY 6 HRS TAKING OMEPRAZOLE 20 MG CAPSULE DELAYED RELEASE 1 CAPSULE ORALLY ONCE A DAY TAKING OXYBUTYNIN CHLORIDE ER 10 MG TABLET EXTENDED RELEASE 24 HOUR 1 TABLET ORALLY ONCE A DAY TAKING GABAPENTIN 300 MG TABLET 1 TABLET ORALLY TID TAKING IBUPROFEN 600 MG TABLET 1 TABLET WITH FOOD OR MILK NEEDED ORALLY THREE TIMES A DAY TAKING VITAMIN B12 TR 2000 MCG TABLET EXTENDED RELEASE 1 TABLET ORALLY ONCE A DAY MEDICATION LIST REVIEWED AND RECONCILED WITH THE PATIENT PAST MEDICAL HISTORY ARTHRITIS HYPERTENSION HYPERCHOLESTEROLEMIA DM BILATERAL CATARACT REMOVAL NEPHROLITHIASIS(SPONTANOUS PASSAGE) SYNCOPE PROSTATE CA, [id number], VANI 7 (3+4) - S/P PROSTATECTOMY ENVIRONMENTAL ALLERGIES PNEUMONIA ALLERGIES N.K.D.A. SURGICAL HISTORY B/L CATARACT SURGERY 2013 BACK INJECTIONS X 2 12/2012 TRUS 07/23/2013 ROBOTIC ASSISTED RADICAL PROSTATECTOMY AND BILATERAL PELVIC LYMPH NODE DIESSECTION 09/07/13 FAMILY HISTORY FATHER: 73 YRS, STROKE, DIAGNOSED WITH UNSPECIFIED CEREBRAL ARTERY OCCLUSION WITH CEREBRAL INFARCTION MOTHER: 74 YRS, CANCER IN HIP, OTHER MALIGNANT NEOPLASM OF UNSPECIFIED SITE SIBLINGS: ALIVE, 1 BROTHER OLDER AND 1 SISTER YOUNGER LIVING 4 BROTHER(S) , 3 SISTER(S) . 1 SON(S) , 3 DAUGHTER(S) - HEALTHY. NO KNOWN FAMILY HISTORY OF ANY UROLOGICALLY RELATED DISEASES CANCERS. SOCIAL HISTORY GENERAL: TOBACCO USE ARE YOU A:FORMER SMOKER HOW LONG HAS IT BEEN SINCE YOU LAST SMOKED?> 10 YEARS LATEX QUESTIONNAIRE LATEX ALLERGY : HAVE YOU EVER DEVELOPED ANY TYPE OF REACTION AFTER HANDLING LATEX PRODUCTS SUCH RUBBER GLOVES, CONDOMS, DIAPHRAGMS, BALLOONS, SOCKS, OR UNDERWEAR?NO LATEX ALLERGY : HAVE YOU EVER DEVELOPED ANY TYPE OF REACTION DURING OR AFTER DENTAL APPOINTMENT, VAGINAL/RECTAL EXAMINATION, SURGICAL PROCEDURE, OR ANY OTHER EXPOSURE?NO LATEX RISK : HAVE YOU EVER HAD ANY DIFFICULTY BREATHING OR HIVES AFTER EATING OR HANDLING ANY FRUITS, OR VEGETABLES; SUCH KIWI, BANANAS, STONE FRUITS, OR CHESTNUTSNO LATEX RISK : DO YOU HAVE A PREVIOUS PERSONAL HISTORY OF MORE THAN NINE SURGERIES, SPINA BIFIDA, OR REPEATED CATHERIZATIONS? NO LATEX RISK : ARE YOU FREQUENTLY EXPOSED TO LATEX PRODUCTS IN YOUR OCCUPATION?NO DATE ASKED : 01/31/2020 ALCOHOL SCREENING POINTS: 0, INTERPRETATION: NEGATIVE. RECREATIONAL DRUG USE DENIES. CAFFEINE 2-5/DAY. SEXUAL HX HAD SEX IN THE LAST 12 MONTHS (VAGINAL, ORAL, OR ANAL)?: YES, WITH: WOMEN ONLY, USE PROTECTION?: NO, HAVE YOU EVER HAD AN STD?: NO. [employer]. LANGUAGE IRAQI. 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 EXERCISE: BIKES. MARITAL STATUS: . OTHERS AT HOME: SIGNIFICANT OTHER/GIRLFRIEND. PATIENT DESCRIBES PAIN :ACHING, HAVE IT ALL THE TIME FROM 0-10, WHAT LEVEL IS YOUR PAIN TODAY?8 PRECIPITATING FACTORS SITTING ALLEVIATING FACTORS ACTIVITY, WALKING IMPACT ON FUNCTION YES PAIN CLINIC PFS, CLERGY, PUBLIC HEALTH REFERRALS HAS THE PATIENT BEEN EDUCATED REGARDING HIS/HER PLAN OF CARE?YES HAS THE PATIENT BEEN EDUCATED REGARDING PAIN, THE RISK FOR PAIN, THE IMPORTANCE OF EFFECTIVE PAIN MANAGEMENT, AND THE PAIN ASSESSMENT PROCESS?YES ADVANCE DIRECTIVE ADVANCE DIRECTIVE DISCUSSED WITH PATIENT:YES PT DOES NOT HAVE HCP AND DECLINES INFO AT THIS TIME. 01/14/20 HOSPITALIZATION/MAJOR DIAGNOSTIC PROCEDURE SYNCOPE [facility] 03/14/13 PNEUMONIA 01/22-01/24/17 PNEUMONIA 06/2017 REVIEW OF SYSTEMS CONSTITUTIONAL: ANY RECENT FEVER NO . CHILLS NO . WEIGHT CHANGE OF UNKNOWN REASONS NO . GASTROENTEROLOGY: NEW UNEXPLAINABLE CHANGES IN BOWEL CONTROL NO . CONSTIPATION NO . GENITOURINARY: ANY NEW CHANGE IN BLADDER CONTROL? NO . NEUROLOGY: NEW ONSET DIZZINESS OR NEUROLOGICAL CHANGES NOT MENTIONED NO . NEW NUMBNESS OR PAIN PATTERNS NOT MENTIONED AND PERTINENT TO TODAY'S VISIT NO . CARDIOLOGY: NEW CHEST PRESSURE NO . NEW CHEST PAIN NO . RESPIRATORY: UNEXPLAINABLE COUGH NO . NEW SHORTNESS OF BREATH NO . VITAL SIGNS WT 244.4 LBS, HT 72 IN, BMI 33.14 INDEX, BP 118/59 MM HG, HR 99 /MIN, RR 18 /MIN, TEMP 96.4 F, OXYGEN SAT % 94%, SAFE IN ENV? (Y/N) YES, NA INITIALS AW 1432, REVIEWED BY: TRENT KILPATRICK RN BSN. EXAMINATION GENERAL EXAMINATION: GENERALAWAKE,ALERT ,PLEAASANT . PSYCHAFFECT NORMAL . LUNGS:LUNG ALVARADO ARE CLEAR TO AUSCULTATION BILATERALLY. GOOD MOVEMENT OF AIR . HEART:S1, S2 IN A REGULAR RATE AND RHYTHM. NO SIGNIFICANT MURMURS, RUBS OR GALLOPS NOTED . CERVICAL:TRIGGER POINTS: CERVICAL AND TRAPEZIUS BILAT..PAIN IS AGGREVATED WITH ROJM NECK. ASSESSMENTS OTHER CHRONIC PAIN - G89.29 (PRIMARY) MYALGIA, OTHER SITE - M79.18 TREATMENT OTHER CHRONIC PAIN PAIN PROCEDURE LOGDATE OF [id number]/16/20PROCEDURE:BILATERAL THORACIC TRIGGER POINT INJECTIONSAMOUNT OF PRE SEDATEPO VALIUM 5MG; 5MG OXYCODONERESULT:MARKED IMPROVEMENT IN PAIN NOTES: 01/31/20 7905 PATIENT GIVEN HANDOUT FOR TRIGGER POINT INJECTIONS, PRE PROCEDURE INSTRUCTIONS REVIEWED AND GIVEN TO PATIENT. PATIENT UNDERSTANDS TREATMENT PLAN, NO QUESTIONS OR CONCERNS AT THIS TIME. GHANSHYAM KILPATRICK RN BSN TRIGGER POINT INJECTIONS BILATERAL NECK. PROCEDURE CODES FA211 ESTABILISHED PATIENT [facility] FACILITY CHARGE DISPOSITION & COMMUNICATION FOLLOW UP POST PROCEDURE (REASON: TRIGGER POINT INJECTION BILATERAL NECK) ELECTRONICALLY SIGNED BY BEVERLEY PUENTE ON 02/01/2020 AT 01:16 PM EST DISCLAIMER : THIS IS A VISIT SUMMARY EXTRACTED FROM THE [employer] CHART. IT IS NOT A COPY OF THE [employer] PROGRESS NOTE. CAIO
== END ==
LOC: M PAIN 14:45
PROVIDERS: ATTEND Nurse Practitioner Family
DX: M79.18 Myalgia, other site (principal); E11.9 Type 2 diabetes mellitus without complications; Z87.891 Personal history of nicotine dependence; Z79.84 Long term (current) use of oral hypoglycemic drugs; Z79.899 Other long term (current) drug therapy

== ENCOUNTER 2020-02-10 13:45 | Outpatient (RCR) | payer MEDICARE, MEDICAID | END 2020-03-02 | LOC: M PT 13:45 | PROVIDERS: ATTEND Internal Medicine | DX: M54.5 Low back pain (principal) ==

== ENCOUNTER → 2020-03-19 | Outpatient (CLI) | payer MEDICARE, MEDICAID | LOC: M LABSMTC 11:11 | PROVIDERS: ATTEND Anesthesiology | DX: Z01.812 Encounter for preprocedural laboratory examination (principal); Z20.822 Contact with and (suspected) exposure to COVID-19 ==

== ENCOUNTER → 2020-03-24 | Outpatient (CLI) | payer MEDICARE, MEDICAID ==
[~2020-03-24] MED LIST changes: +BUPIVACAINE HCL 0.25% 10ML VIAL As Ordered ONE; +BUPIVACAINE HCL 0.25% 30ML VIAL As Ordered ONE; -LISI-538 PO; +LISI10TA22 PO; -LISI10TA4 PO; +LISI20TA33 PO; -LISI40TA PO; +LISI40TA4 PO; +TRIAMCINOLONE ACETONIDE SUSP 40 MG/ML VIAL (J3301) As Ordered ONE; +diazePAM 5MG TABLET As Ordered ONE; +oxyCODONE 5MG TAB As Ordered ONE
--- NOTE | 2020-03-28 01:25 | ECWPNPC ---
PATIENT NAME: OWEN PHILLIPS : 1945 GENDER: MALE VISIT DATE: 03/24/2020 DISCHARGE DATE: 03/24/20 1443 VISIT LOCKED DATE TIME: PHYSICIAN: KEREN WHYTE MD RESOURCE: KEREN WHYTE MD REASON FOR APPOINTMENT 1. TRIGGER POINT INJECTIONS BILATERAL NECK HISTORY OF PRESENT ILLNESS GENERAL: -. FALL RISK SCREENING: SCREENING :NO FALLS REPORTED IN THE LAST YEAR PAIN SCREENING: PATIENT HAS A COMPLAINT OF ACUTE OR CHRONIC PAIN :YES LOCATION OF PAIN:NECK RADIATES TO SHOULDERS, ARMS, AND FINGERS AND SOMETIMES DOWN BACK INTENSITY OF PAIN (SCALE OF 1 TO 10):10 RANGES 8-10 + WHAT DOES YOUR PAIN FEEL LIKE:ACHING, BURNING, CONTINOUS, SHOOTING SHOOTING PAIN AT TIMES DURATION:CONTINOUS, AWAKENS FROM SLEEP PAIN IS INCREASED BY:OTHERS STATES IT IS JUST ALWAYS THERE PAIN IS DECREASED BY:USE OF PAIN MEDICATIONS PAIN MEDS AND GABAPENTIN TAKES THE EDGE OFF NURSING NOTE: -. PAIN CENTER INTAKE QUESTIONS: DO YOU HAVE A HISTORY OF MRSA? :NO DO YOU TAKE A BLOOD THINNERS? :NO DO YOU HAVE ANY BLEEDING DISORDERS? :NO ANY NEW NUMBNESS OR WEAKNESS IN YOUR LEGS OR ARMS? :NO ANY PACEMAKER,DEFIBRILLATOR, OR DORSAL COLUMN STIMULATOR? :NO DO YOU HAVE ANY RASHES OR OPEN SORES? :NO ARE YOU ALLERGIC TO IV DYE? :NO ARE YOU DIABETIC? :YES BORDERLINE ANY NEW PROBLEMS WITH YOUR MEDICATIONS? :NO HAVE YOU RECEIVED A VACCINE IN THE PAST 30 DAYS? :NO DO YOU PLAN TO RECEIVE A VACCINE IN THE NEXT 21 DAYS? :NO DO YOU TAKE ANY IMMUNOSUPPRESSIVE MEDICATIONS? :NO ANY HISTORY OF SEIZURES? :NO ANY HISTORY OF CARDIAC ISSUES OR EVENTS? :NO DO YOU HAVE SLEEP APNEA? :NO ANY RECENT HEAD INJURY? :NO DO YOU HAVE ANY NEW INFECTIONS? :NO IS THERE A CHANCE YOU COULD BE ? :NO ARE YOU BREAST FEEDING? :NO WHEN DID YOU LAST EAT? : 03/23/201999 WHEN DID YOU LAST DRINK? : 0900 WHAT DID YOU LAST DRINK? : WATER NAME OF PERSON DRIVING YOU HOME? : HORACE- NEIGHBOR DO YOU HAVE ANY OTHER QUESTIONS OR CONCERNS? : NO CURRENT MEDICATIONS TAKING NUCALA 100 MG/ML SOLUTION PREFILLED SYRINGE DIRECTED SUBCUTANEOUS MONTHLY, NOTES: 03/08/2020 TAKING GEMFIBROZIL 600 MG TABLET 1 TABLET ORALLY DAILY TAKING JANUVIA 100 MG TABLET 1 TABLET ORALLY ONCE A DAY, NOTES: 03/23/202129 TAKING LISINOPRIL 20 MG TABLET 1 TABLET ORALLY ONCE A DAY, NOTES: 03/23/202129 TAKING PRAVASTATIN 40 40MG TABLET 1 TAB(S) ORAL DAILY TAKING AMLODIPINE BESYLATE 10 MG TABLET 1 TABLET ORALLY ONCE A DAY, NOTES: 03/23/202129 TAKING VITAMIN B-6 50 MG TABLET 1 TABLET ORALLY ONCE A DAY TAKING ACETAMINOPHEN 650 MG TABLET 1 TABLET NEEDED ORALLY EVERY 6 HRS TAKING OMEPRAZOLE 20 MG CAPSULE DELAYED RELEASE 1 CAPSULE ORALLY ONCE A DAY TAKING OXYBUTYNIN CHLORIDE ER 10 MG TABLET EXTENDED RELEASE 24 HOUR 1 TABLET ORALLY ONCE A DAY TAKING GABAPENTIN 300 MG TABLET 1 TABLET ORALLY TID TAKING IBUPROFEN 600 MG TABLET 1 TABLET WITH FOOD OR MILK NEEDED ORALLY THREE TIMES A DAY TAKING VITAMIN B12 TR 2000 MCG TABLET EXTENDED RELEASE 1 TABLET ORALLY ONCE A DAY MEDICATION LIST REVIEWED AND RECONCILED WITH THE PATIENT PAST MEDICAL HISTORY ARTHRITIS HYPERTENSION HYPERCHOLESTEROLEMIA DM BILATERAL CATARACT REMOVAL NEPHROLITHIASIS(SPONTANOUS PASSAGE) SYNCOPE PROSTATE CA, [id number], VANI 7 (3+4) - S/P PROSTATECTOMY ENVIRONMENTAL ALLERGIES PNEUMONIA ALLERGIES N.K.D.A. SOCIAL HISTORY GENERAL: TOBACCO USE ARE YOU A:FORMER SMOKER HOW LONG HAS IT BEEN SINCE YOU LAST SMOKED?> 10 YEARS LATEX QUESTIONNAIRE LATEX ALLERGY : HAVE YOU EVER DEVELOPED ANY TYPE OF REACTION AFTER HANDLING LATEX PRODUCTS SUCH RUBBER GLOVES, CONDOMS, DIAPHRAGMS, BALLOONS, SOCKS, OR UNDERWEAR?NO LATEX ALLERGY : HAVE YOU EVER DEVELOPED ANY TYPE OF REACTION DURING OR AFTER DENTAL APPOINTMENT, VAGINAL/RECTAL EXAMINATION, SURGICAL PROCEDURE, OR ANY OTHER EXPOSURE?NO LATEX RISK : HAVE YOU EVER HAD ANY DIFFICULTY BREATHING OR HIVES AFTER EATING OR HANDLING ANY FRUITS, OR VEGETABLES; SUCH KIWI, BANANAS, STONE FRUITS, OR CHESTNUTSNO LATEX RISK : DO YOU HAVE A PREVIOUS PERSONAL HISTORY OF MORE THAN NINE SURGERIES, SPINA BIFIDA, OR REPEATED CATHERIZATIONS? NO LATEX RISK : ARE YOU FREQUENTLY EXPOSED TO LATEX PRODUCTS IN YOUR OCCUPATION?NO DATE ASKED : 03/23/2020 ALCOHOL USE: NO. ALCOHOL SCREENING POINTS: 0, INTERPRETATION: NEGATIVE. RECREATIONAL DRUG USE DENIES. CAFFEINE 2-5/DAY. SEXUAL HX HAD SEX IN THE LAST 12 MONTHS (VAGINAL, ORAL, OR ANAL)?: YES, WITH: WOMEN ONLY, USE PROTECTION?: NO, HAVE YOU EVER HAD AN STD?: NO. 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 EXERCISE: BIKES. MARITAL STATUS: . OTHERS AT HOME: SIGNIFICANT OTHER/GIRLFRIEND. VITAL SIGNS WT 237.6 LBS, HT 72 IN, BMI 32.22 INDEX, BP 136/71 MM HG, HR 89 /MIN, RR 18 /MIN, TEMP 97.7 F, OXYGEN SAT % 97%, SAFE IN ENV? (Y/N) YES, NA INITIALS SC 13:16, REVIEWED BY: JSJ. MARLYS RN. EXAMINATION GENERAL EXAMINATION: THE PATIENT IS ALERT, ORIENTED TIMES THREE AND COOPERATIVE. LUNGS ARE CLEAR TO AUSCULTATION. HEART SHOWS REGULAR RHYTHM, NO MURMURS AND NO GALLOPS. ASSESSMENTS MYALGIA - M79.10 (PRIMARY) TREATMENT MYALGIA MEDICATION: VALIUM TAB 5MG ORALLY (DIAZEPAM)WILLIAM FRANKEL 03/24/2020 1:42:25 PM > LOT: [id number], EXP: 12/2021. FRANCK QUANIL R 03/24/2020 1:44:28 PM > VERIFIED WILLIAM FRANKEL 03/24/2020 1:50:33 PM > ADMINISTERED. MEDICATION: OXYCODONE HCL TAB 5MG ORALLY WILLIAM FRANKEL 03/24/2020 1:42:57 PM > LOT: [id number], EXP: 04/2021. KADEEMCANDI R 03/24/2020 1:44:47 PM > VERIFIED WILLIAM FRANKEL 03/24/2020 1:50:56 PM > ADMINISTERED. COMPLETION OF PROCEDURAL VISIT WHEN MEETS CRITERIAWILLIAM FRANKEL 03/24/2020 2:40:22 PM > CRITERIA MET. OTHERS NOTES: PRE PROCEDURE PHONE CALL COMPLETED 03/23/20 [place]5 Zahida EASTMAN RN. PROCEDURES PAIN NURSING RECORD PROCEDURE IN ROOM 1305, PHYSICIAN IN ROOM 1418, START 1420, FINISH 1424, PHYSICIAN OUT OF ROOM 1425, OUT OF ROOM 1440, ECG N/A, PATIENT SHIELDED N/A, SAFETY STRAP N/A, PREP ALCOHOL BY: DR. WHYTE, DRESSING TEGADERM BY: NEEL FUNEZ LOC: WILLIAM FRANKEL 03/24/2020 2:21:14 PM > , 1. ALERT, ORIENTED RESP: WILLIAM FRANKEL 03/24/2020 2:21:18 PM > , 1. REGULAR, NO DYSPNEA COLOR: WILLIAM FRANKEL 03/24/2020 2:21:21 PM > , 1. PINK SKIN: WILLIAM FRANKEL 03/24/2020 2:21:23 PM > , 1. WARM, DRY POSITION: WILLIAM FRANKEL 03/24/2020 2:21:28 PM > , 5. SITTING VITALS: WILLIAM FRANKEL 03/24/2020 2:31:34 PM > 130/59, 88, 18, 97% NOTES Leticia FRANKEL RN COMPLETION OF PROCEDURE APPOINTMENT: POST PAIN 7, DRESSING SITE DRY AND INTACT, IV N/A, GAIT STEADY, TEACHING COMPLETED, PATIENT ACKNOWLEDGES UNDERSTANDING YES, PROCEDURE APPOINTMENT COMPLETED AT 1440 BY: Leticia FRANKEL RN PN TRIGGER POINT INJECTION WITH STEROIDS PRE PROCEDURE DIAGNOSIS 1. MYALGIA 2. PAIN AT BILATERAL NECK AREA POST PROCEDURE DIAGNOSIS 1. MYALGIA 2. PAIN AT BILATERAL NECK AREA PROCEDURE TRIGGER POINT INJECTION AT RIGHT AND LEFT NECK AREA SURGEON DR. KEREN WHYTE HAIR TINTER NONE ANESTHESIA LOCAL PRE PROCEDURE NOTE THE PATIENT HAS A HISTORY OF CHRONIC PAIN AT THE RIGHT AND LEFT NECK AREA. I EVALUATED THE PATIENT AND REVIEWED THE CHART. THERE IS EVIDENCE OF BANDS OF TISSUE WITH RESTRICTION OF MOVEMENT AND PRESENCE OF TRIGGER POINT AT THE RIGHT AND NECK NECK AREA. I WENT OVER THE RISKS, ALTERNATIVES, AND BENEFITS ASSOCIATED WITH THIS PROCEDURE. THE PATIENT WOULD LIKE TO PROCEED AND GIVE CONSENT TO PERFORMED THE PROCEDURE. THE PATIENT DENIES UNEXPLAINABLE WEIGHT LOSS, FEVER, CHILLS, OR NEW CHANGES IN URINARY OR BOWEL CONTROL. THE PATIENT IS COVID-19 NEGATIVE DESCRIPTION OF PROCEDURE THE PATIENT WAS BROUGHT TO THE PROCEDURE ROOM AND PLACED IN THE SITTING POSITION. THE AREA WAS CLEANED WITH ALCOHOL. THE PROCEDURE WAS DONE USING ASEPTIC STERILE TECHNIQUE. A TIMEOUT WAS PERFORMED WHERE LATERALITY AND THE SITE OF THE PROCEDURE WERE CHECKED AND CONFIRMED WITH EVERYONE IN THE ROOM. USING A 25-GAUGE NEEDLE, TRIGGER POINTS WERE INJECTED AT THE RIGHT AND LEFT AREA WITH A TOTAL OF 40 ML OF BUPIVACAINE 0.25% AND KENALOG 40 MG. THE MEDICATIONS WERE VERIFIED WITH THE NURSE. THERE WAS NO EVIDENCE OF BLOOD OR PARESTHESIA DURING THE PROCEDURE. THE PATIENT WAS SENT TO THE RECOVERY ROOM. THE PATIENT WAS MOVING THE EXTREMITIES AND DOING WELL. THERE WERE NO COMPLICATIONS DURING THE PROCEDURE. ESTIMATED BLOOD LOSS WAS LESS THAN 5 ML POST PROCEDURE NOTE DEPENDING ON THE RESULTS, CONSIDER A CERVICAL EPIDURAL STEROID INJECTION. THE PROCEDURE DONE WAS DISCUSSED WITH THE PATIENT. THE PATIENT WILL BE SEEN IN A FOLLOW UP IN THE NEXT FEW WEEKS. I AM LOOKING FOR LONG LASTING PAIN RELIEF FOR THE PATIENT WITH THIS INTERVENTION. INSTRUCTIONS WERE GIVEN, QUESTIONS WERE ANSWERED, AND THE PATIENT EXPRESSED UNDERSTANDING AND AGREES WITH THE PLAN. I, AARON MCCURDY, DOCUMENTED THE ABOVE INFORMATION ACTING A SCRIBE FOR DR. WHYTE. I HAVE REVIEWED THE ABOVE DOCUMENT, WRITTEN BY AARON MCCURDY, E MERCHANT, AND I VERIFY THAT IT IS ACCURATE PROCEDURE CODES 65322 INJ TRIGGER POINT 03/04 [facility] [place]UN[place] FOLLOW UP FOLLOW UP WITH ORCHARD WORKER (REASON: POST TRIGGER POINT INJECTION BILATERAL NECK) ELECTRONICALLY SIGNED BY KEREN WHYTE MD, MD ON 03/27/2020 AT 04:49 PM EST DISCLAIMER : THIS IS A VISIT SUMMARY EXTRACTED FROM THE [employer] CHART. IT IS NOT A COPY OF THE [employer] PROGRESS NOTE. CAIO
== END ==
LOC: M PAIN 13:00
PROVIDERS: ATTEND Anesthesiology
DX: M79.18 Myalgia, other site (principal); E11.9 Type 2 diabetes mellitus without complications; Z87.891 Personal history of nicotine dependence; Z79.84 Long term (current) use of oral hypoglycemic drugs; Z79.899 Other long term (current) drug therapy
CPT/HCPCS: 20552; J3301

== ENCOUNTER → 2020-04-07 | Outpatient (CLI) | payer MEDICARE, MEDICAID ==
[~2020-04-07] MED LIST changes: -BUPIVACAINE HCL 0.25% 10ML VIAL As Ordered ONE; -BUPIVACAINE HCL 0.25% 30ML VIAL As Ordered ONE; -TRIAMCINOLONE ACETONIDE SUSP 40 MG/ML VIAL (J3301) As Ordered ONE; -diazePAM 5MG TABLET As Ordered ONE; -oxyCODONE 5MG TAB As Ordered ONE
--- NOTE | 2020-04-13 03:56 | ECWPNPC ---
PATIENT NAME: OWEN PHILLIPS : 1945 GENDER: MALE VISIT DATE: 04/07/2020 DISCHARGE DATE: 04/07/20 1520 VISIT LOCKED DATE TIME: PHYSICIAN: HARI VIGIL RESOURCE: HARI VIGIL REASON FOR APPOINTMENT 1. POST TRIGGER POINT INJECTION BILATERAL NECK HISTORY OF PRESENT ILLNESS GENERAL: HERE FOR POST PROCEDURE F/U.HAD TPI OVER NECK 2 WEEKS AGO.REPORTING SOME IMPROVEMENT THAT CONTINUES TODAY.CONTINUES WITH COMPLAINTS OF NECK PAIN.REVIEWED MRI OF CERVICAL SPINE.ALSO COMPLAINING OF GENERALIZED JOINT PAIN.REVIEWED CERVICAL MRI AND DISCUSSED TREATMENT PLAN. -. FALL RISK SCREENING: SCREENING :NO FALLS REPORTED IN THE LAST YEAR PAIN SCREENING: PATIENT HAS A COMPLAINT OF ACUTE OR CHRONIC PAIN :YES LOCATION OF PAIN:NECK, BOTH SHOULDERS, LOW BACK INTENSITY OF PAIN (SCALE OF 1 TO 10):7 WHAT DOES YOUR PAIN FEEL LIKE:ACHING, SHARP, STABBING DURATION:CONTINOUS, MAINLY DURING THE NIGHT, INTERMITTENT, AWAKENS FROM SLEEP PAIN IS INCREASED BY:ACTIVITIES, PROLONGED STANDING PAIN IS DECREASED BY:USE OF PAIN MEDICATIONS GABAPENTIN HELPS. HEAT AND SHOWERS HELPS. NURSING NOTE: -. PAIN CENTER INTAKE QUESTIONS: DO YOU HAVE A HISTORY OF MRSA? :NO DO YOU TAKE A BLOOD THINNERS? :NO DO YOU HAVE ANY BLEEDING DISORDERS? :NO ANY NEW NUMBNESS OR WEAKNESS IN YOUR LEGS OR ARMS? :YES NEW NUMBNESS AND WEAKNESS IN BILATERAL ARMS AND LEGS. ANY PACEMAKER,DEFIBRILLATOR, OR DORSAL COLUMN STIMULATOR? :NO DO YOU HAVE ANY RASHES OR OPEN SORES? :NO ARE YOU ALLERGIC TO IV DYE? :NO ARE YOU DIABETIC? :NO ANY NEW PROBLEMS WITH YOUR MEDICATIONS? :YES PATIENT WOULD LIKE TO DISCUSS A STRONGER DOSE OF IBUPROFEN. HAVE YOU RECEIVED A VACCINE IN THE PAST 30 DAYS? :NO DO YOU PLAN TO RECEIVE A VACCINE IN THE NEXT 21 DAYS? :NO DO YOU NEED ANY PRESCRIPTION? :NO DO YOU TAKE ANY IMMUNOSUPPRESSIVE MEDICATIONS? :NO IS THERE A CHANCE YOU COULD BE ? :NO ARE YOU BREAST FEEDING? :NO CURRENT MEDICATIONS TAKING NUCALA 100 MG/ML SOLUTION PREFILLED SYRINGE DIRECTED SUBCUTANEOUS MONTHLY, NOTES: 03/08/2020 TAKING GEMFIBROZIL 600 MG TABLET 1 TABLET ORALLY DAILY TAKING JANUVIA 100 MG TABLET 1 TABLET ORALLY ONCE A DAY, NOTES: 03/23/202129 TAKING LISINOPRIL 20 MG TABLET 1 TABLET ORALLY ONCE A DAY, NOTES: 03/23/202129 TAKING PRAVASTATIN 40 40MG TABLET 1 TAB(S) ORAL DAILY TAKING AMLODIPINE BESYLATE 10 MG TABLET 1 TABLET ORALLY ONCE A DAY, NOTES: 03/23/202129 TAKING VITAMIN B-6 50 MG TABLET 1 TABLET ORALLY ONCE A DAY TAKING ACETAMINOPHEN 650 MG TABLET 1 TABLET NEEDED ORALLY EVERY 6 HRS TAKING OMEPRAZOLE 20 MG CAPSULE DELAYED RELEASE 1 CAPSULE ORALLY ONCE A DAY TAKING OXYBUTYNIN CHLORIDE ER 10 MG TABLET EXTENDED RELEASE 24 HOUR 1 TABLET ORALLY ONCE A DAY TAKING IBUPROFEN 600 MG TABLET 1 TABLET WITH FOOD OR MILK NEEDED ORALLY THREE TIMES A DAY TAKING VITAMIN B12 TR 2000 MCG TABLET EXTENDED RELEASE 1 TABLET ORALLY ONCE A DAY TAKING GABAPENTIN 300 MG TABLET 1 TABLET ORALLY TID TAKING VITAMIN D3 25 MCG (1000 UT) TABLET CHEWABLE 1 TABLET ORALLY ONCE A DAY MEDICATION LIST REVIEWED AND RECONCILED WITH THE PATIENT PAST MEDICAL HISTORY ARTHRITIS HYPERTENSION HYPERCHOLESTEROLEMIA DM BILATERAL CATARACT REMOVAL NEPHROLITHIASIS(SPONTANOUS PASSAGE) SYNCOPE PROSTATE CA, [id number], VANI 7 (3+4) - S/P PROSTATECTOMY ENVIRONMENTAL ALLERGIES PNEUMONIA ALLERGIES N.K.D.A. SOCIAL HISTORY GENERAL: TOBACCO USE ARE YOU A:FORMER SMOKER HOW LONG HAS IT BEEN SINCE YOU LAST SMOKED?> 10 YEARS LATEX QUESTIONNAIRE LATEX ALLERGY : HAVE YOU EVER DEVELOPED ANY TYPE OF REACTION AFTER HANDLING LATEX PRODUCTS SUCH RUBBER GLOVES, CONDOMS, DIAPHRAGMS, BALLOONS, SOCKS, OR UNDERWEAR?NO LATEX ALLERGY : HAVE YOU EVER DEVELOPED ANY TYPE OF REACTION DURING OR AFTER DENTAL APPOINTMENT, VAGINAL/RECTAL EXAMINATION, SURGICAL PROCEDURE, OR ANY OTHER EXPOSURE?NO LATEX RISK : HAVE YOU EVER HAD ANY DIFFICULTY BREATHING OR HIVES AFTER EATING OR HANDLING ANY FRUITS, OR VEGETABLES; SUCH KIWI, BANANAS, STONE FRUITS, OR CHESTNUTSNO LATEX RISK : DO YOU HAVE A PREVIOUS PERSONAL HISTORY OF MORE THAN NINE SURGERIES, SPINA BIFIDA, OR REPEATED CATHERIZATIONS? NO LATEX RISK : ARE YOU FREQUENTLY EXPOSED TO LATEX PRODUCTS IN YOUR OCCUPATION?NO DATE ASKED : 04/07/2020 ALCOHOL USE: NO. ALCOHOL SCREENING POINTS: 0, INTERPRETATION: NEGATIVE. RECREATIONAL DRUG USE DENIES. CAFFEINE 2-5/DAY. SEXUAL HX HAD SEX IN THE LAST 12 MONTHS (VAGINAL, ORAL, OR ANAL)?: YES, WITH: WOMEN ONLY, USE PROTECTION?: NO, HAVE YOU EVER HAD AN STD?: NO. MORMONISM SIKHISM. LANGUAGE TAJIK. 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 EXERCISE: BIKES. MARITAL STATUS: . OTHERS AT HOME: SIGNIFICANT OTHER/GIRLFRIEND. REVIEW OF SYSTEMS CONSTITUTIONAL: ANY RECENT FEVER NO . CHILLS NO . WEIGHT CHANGE OF UNKNOWN REASONS NO . GASTROENTEROLOGY: NEW UNEXPLAINABLE CHANGES IN BOWEL CONTROL NO . CONSTIPATION NO . GENITOURINARY: ANY NEW CHANGE IN BLADDER CONTROL? NO . NEUROLOGY: NEW ONSET DIZZINESS OR NEUROLOGICAL CHANGES NOT MENTIONED NO . NEW NUMBNESS OR PAIN PATTERNS NOT MENTIONED AND PERTINENT TO TODAY'S VISIT NO . CARDIOLOGY: NEW CHEST PRESSURE NO . NEW CHEST PAIN NO . RESPIRATORY: UNEXPLAINABLE COUGH NO . NEW SHORTNESS OF BREATH NO . VITAL SIGNS WT 238.0 LBS, HT 72 IN, BMI 32.28 INDEX, BP 128/59 MM HG, HR 101 /MIN, RR 18 /MIN, TEMP 97.0 F, OXYGEN SAT % 94%, SAFE IN ENV? (Y/N) YES, NA INITIALS AW 1426, REVIEWED BY: NAYELI SQUIRES MA. EXAMINATION GENERAL EXAMINATION: LUNGS: LUNG SOUNDS ARE CLEAR . HEART: HEART RATE REGULAR . MUSCULOSKELETAL:*, MUSCLE STRENGTH TESTING 5/5 BILATERAL UPPER EXTREMITIES. . CERVICAL:+ FOR PAIN WITH PALPATION OF CERVICAL SPINE. + FOR PAIN WITH PALPATION OF CERVICAL PARASPINALS.SPECIFIC POINT TENDERNESS NOTED OV C4/5-/C5/6,C7,T1 CERVICAL FACETS WITH EXTENSION AND FACET LOADING.. DIAGNOSTIC TESTS REVIEWED CERVICAL MRI . 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 THANK YOU, GHANSHYAM NOTES: BILATERAL CERVICAL THERAPEUTIC FACET BLOCK C5-C6, C6-7 ,C7-T1. PROCEDURE CODES FA211 ESTABILISHED PATIENT [facility] CHARGE DISPOSITION & COMMUNICATION FOLLOW UP POSTPROCEDURE (REASON: BILATERAL CERVICAL THERAPEUTIC FACET BLOCK C5-C6, C6-7 ,C7-T1) ELECTRONICALLY SIGNED BY BEVERLEY PUENTE ON 04/12/2020 AT 08:12 PM EST DISCLAIMER : THIS IS A VISIT SUMMARY EXTRACTED FROM THE [employer] CHART. IT IS NOT A COPY OF THE [employer] PROGRESS NOTE. CAIO
== END ==
LOC: M PAIN 14:15
PROVIDERS: ATTEND Nurse Practitioner Family
DX: M47.812 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lopathy, cervical region (principal); G89.29 Other chronic pain; E11.9 Type 2 diabetes mellitus without complications; Z87.891 Personal history of nicotine dependence; Z79.84 Long term (current) use of oral hypoglycemic drugs; Z79.899 Other long term (current) drug therapy

== ENCOUNTER → 2020-04-19 | Outpatient (CLI) | payer MEDICARE, MEDICAID | LOC: M LABSMTC 13:58 | PROVIDERS: ATTEND Anesthesiology | DX: Z20.822 Contact with and (suspected) exposure to COVID-19 (principal) ==

== ENCOUNTER → 2020-04-21 | Outpatient (CLI) | payer MEDICARE, MEDICAID ==
--- NOTE | 2020-04-24 05:07 | REP ---
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 This CT examination was performed using the following dose reduction techniques: Automated exposure control, adjustment of mA and/or kv according to the patient's size, and use of iterative reconstruction technique. FINDINGS: Diffuse moderate to early advanced fibrosis along with moderate to significant bronchiectasis and scattered scarring is again appreciated, and allowing for variation demonstrates progressively increased bronchiectasis with similar areas of fibrosis. No obvious acute area of consolidation, new suspicious nodule or mass lesion identified. No pleural effusion. No pneumothorax. Mediastinal adenopathy is again noted with precarinal lymph nodes measuring up to 16 mm short axis diameter. Thoracic aorta and coronary arteries again demonstrate atherosclerotic disease without thoracic aortic aneurysm. No cardiomegaly. Pulmonary arteries are stable. Surrounding musculoskeletal structures demonstrate age-related osteopenia and degenerative changes without acute osseous abnormality. IMPRESSION: 1. Moderate early advanced fibrosis, with scarring and bronchiectasis as described above. Fibrosis remains relatively stable although bronchiectasis has progressively increased. 2. No acute consolidation, new suspicious nodule or mass lesion. <Electronically signed by Dayton Barillas > 04/24/20 2907
== END ==
LOC: M RAD 16:25
PROVIDERS: ATTEND Internal Medicine
DX: 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 [Churg-Strauss] (principal); J84.10 Pulmonary fibrosis, unspecified; J47.9 Bronchiectasis, uncomplicated

== ENCOUNTER → 2020-04-24 | Outpatient (CLI) | payer MEDICARE, MEDICAID ==
[~2020-04-24] MED LIST changes: +BUPIVACAINE HCL 0.25% 30ML VIAL As Ordered ONE; +ISOVUE-M 300 61% 15ML VIAL As Ordered ONE; +LIDOCAINE 1% SDV 30ML VIAL As Ordered ONE; +TRIAMCINOLONE ACETONIDE SUSP 40 MG/ML VIAL (J3301) As Ordered ONE; +diazePAM 2 MG TAB As Ordered ONE; +oxyCODONE 5MG TAB As Ordered ONE
--- NOTE | 2020-04-24 17:27 | REP ---
INDICATION: BILATERAL THERAPEUTIC CERVICAL FACET BLOCK. COMPARISON: None. TECHNIQUE: C-arm views cervical spine. FINDINGS: Two needles are seen along the bilateral lower cervical facet joints. IMPRESSION: 14 seconds fluoroscopy time utilized. <Electronically signed by Kwabena Fox > 04/24/20 6500
--- NOTE | 2020-04-27 01:20 | ECWPNPC ---
PATIENT NAME: OWEN PHILLIPS : 1945 GENDER: MALE VISIT DATE: 04/24/2020 DISCHARGE DATE: 04/24/20 1419 VISIT LOCKED DATE TIME: PHYSICIAN: KEREN WHYTE MD RESOURCE: KEREN WHYTE MD REASON FOR APPOINTMENT 1. BILATERAL THERAPUTIC CERVICAL FACET BLOCK C5-C6, C7-T1 HISTORY OF PRESENT ILLNESS GENERAL: -. FALL RISK SCREENING: SCREENING :NO FALLS REPORTED IN THE LAST YEAR PAIN SCREENING: PATIENT HAS A COMPLAINT OF ACUTE OR CHRONIC PAIN :YES LOCATION OF PAIN:NECK, LEFT SHOULDER, RIGHT SHOULDER BILATERAL ARMS AND BILATERAL HANDS INTENSITY OF PAIN (SCALE OF 1 TO 10):8 WHAT DOES YOUR PAIN FEEL LIKE:ACHING, CONTINOUS DURATION:CONTINOUS PAIN IS INCREASED BY:ACTIVITIES, OTHERS BOTHERS WHEN SLEEPING PAIN IS DECREASED BY:OTHERS VOLTERAN NURSING NOTE: -. PAIN CENTER INTAKE QUESTIONS: DO YOU HAVE A HISTORY OF MRSA? :NO DO YOU TAKE A BLOOD THINNERS? :NO DO YOU HAVE ANY BLEEDING DISORDERS? :NO ANY NEW NUMBNESS OR WEAKNESS IN YOUR LEGS OR ARMS? :NO ANY PACEMAKER,DEFIBRILLATOR, OR DORSAL COLUMN STIMULATOR? :NO DO YOU HAVE ANY RASHES OR OPEN SORES? :NO ARE YOU ALLERGIC TO IV DYE? :NO ARE YOU DIABETIC? :NO BODERLINE- DOES NOT DO FINGERSTICKS ANY NEW PROBLEMS WITH YOUR MEDICATIONS? :NO HAVE YOU RECEIVED A VACCINE IN THE PAST 30 DAYS? :NO DO YOU PLAN TO RECEIVE A VACCINE IN THE NEXT 21 DAYS? :YES IF SO WHAT VACCINE AND WHEN? COVID VACCINE- PT VERBLAIZES UNDERSTANDING OF WAITING 2 WEEKS POST PROCEDURE DO YOU TAKE ANY IMMUNOSUPPRESSIVE MEDICATIONS? :NO ANY HISTORY OF SEIZURES? :NO ANY HISTORY OF CARDIAC ISSUES OR EVENTS? :NO DO YOU HAVE SLEEP APNEA? :NO ANY RECENT HEAD INJURY? :NO DO YOU HAVE ANY NEW INFECTIONS? :NO IS THERE A CHANCE YOU COULD BE ? :NO ARE YOU BREAST FEEDING? :NO WHEN DID YOU LAST EAT? : 04/23/2020 1900 WHEN DID YOU LAST DRINK? : 04/24/2020 800 WHAT DID YOU LAST DRINK? : WATER NAME OF PERSON DRIVING YOU HOME? : BINA DO YOU HAVE ANY OTHER QUESTIONS OR CONCERNS? : - CURRENT MEDICATIONS TAKING NUCALA 100 MG/ML SOLUTION PREFILLED SYRINGE DIRECTED SUBCUTANEOUS MONTHLY, NOTES: 04/10/2020 TAKING GEMFIBROZIL 600 MG TABLET 1 TABLET ORALLY DAILY TAKING JANUVIA 100 MG TABLET 1 TABLET ORALLY ONCE A DAY, NOTES: 04/23/2020 2100 TAKING LISINOPRIL 20 MG TABLET 1 TABLET ORALLY ONCE A DAY, NOTES: 04/23/2020 2100 TAKING PRAVASTATIN 40 40MG TABLET 1 TAB(S) ORAL DAILY TAKING AMLODIPINE BESYLATE 10 MG TABLET 1 TABLET ORALLY ONCE A DAY, NOTES: 04/23/2020 2100 TAKING VITAMIN B-6 50 MG TABLET 1 TABLET ORALLY ONCE A DAY TAKING ACETAMINOPHEN 650 MG TABLET 1 TABLET NEEDED ORALLY EVERY 6 HRS TAKING OMEPRAZOLE 20 MG CAPSULE DELAYED RELEASE 1 CAPSULE ORALLY ONCE A DAY, NOTES: 04/24/2020 0700 TAKING OXYBUTYNIN CHLORIDE ER 10 MG TABLET EXTENDED RELEASE 24 HOUR 1 TABLET ORALLY ONCE A DAY TAKING VITAMIN B12 TR 2000 MCG TABLET EXTENDED RELEASE 1 TABLET ORALLY ONCE A DAY TAKING GABAPENTIN 300 MG TABLET 1 TABLET ORALLY TID, NOTES: 04/23/20202099 TAKING VITAMIN D3 25 MCG (1000 UT) TABLET CHEWABLE 1 TABLET ORALLY ONCE A DAY TAKING IBUPROFEN 800 MG TABLET 1 TABLET WITH FOOD OR MILK NEEDED ORALLY THREE TIMES A DAY, NOTES: 04/23/20202229 MEDICATION LIST REVIEWED AND RECONCILED WITH THE PATIENT PAST MEDICAL HISTORY ARTHRITIS HYPERTENSION HYPERCHOLESTEROLEMIA DM BILATERAL CATARACT REMOVAL NEPHROLITHIASIS(SPONTANOUS PASSAGE) SYNCOPE PROSTATE CA, [id number], VANI 7 (3+4) - S/P PROSTATECTOMY ENVIRONMENTAL ALLERGIES PNEUMONIA ALLERGIES N.K.D.A. SOCIAL HISTORY GENERAL: TOBACCO USE ARE YOU A:FORMER SMOKER HOW LONG HAS IT BEEN SINCE YOU LAST SMOKED?> 10 YEARS LATEX QUESTIONNAIRE LATEX ALLERGY : HAVE YOU EVER DEVELOPED ANY TYPE OF REACTION AFTER HANDLING LATEX PRODUCTS SUCH RUBBER GLOVES, CONDOMS, DIAPHRAGMS, BALLOONS, SOCKS, OR UNDERWEAR?NO LATEX ALLERGY : HAVE YOU EVER DEVELOPED ANY TYPE OF REACTION DURING OR AFTER DENTAL APPOINTMENT, VAGINAL/RECTAL EXAMINATION, SURGICAL PROCEDURE, OR ANY OTHER EXPOSURE?NO LATEX RISK : HAVE YOU EVER HAD ANY DIFFICULTY BREATHING OR HIVES AFTER EATING OR HANDLING ANY FRUITS, OR VEGETABLES; SUCH KIWI, BANANAS, STONE FRUITS, OR CHESTNUTSNO LATEX RISK : DO YOU HAVE A PREVIOUS PERSONAL HISTORY OF MORE THAN NINE SURGERIES, SPINA BIFIDA, OR REPEATED CATHERIZATIONS? NO LATEX RISK : ARE YOU FREQUENTLY EXPOSED TO LATEX PRODUCTS IN YOUR OCCUPATION?NO DATE ASKED : 04/24/2020 ALCOHOL USE: NO. ALCOHOL SCREENING POINTS: 0, INTERPRETATION: NEGATIVE. RECREATIONAL DRUG USE DENIES. CAFFEINE 2-5/DAY. SEXUAL HX HAD SEX IN THE LAST 12 MONTHS (VAGINAL, ORAL, OR ANAL)?: YES, WITH: WOMEN ONLY, USE PROTECTION?: NO, HAVE YOU EVER HAD AN STD?: NO. CONGREGATIONAL ZOROASTRIANISM. LANGUAGE IRISH. 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 EXERCISE: BIKES. MARITAL STATUS: . OTHERS AT HOME: SIGNIFICANT OTHER/GIRLFRIEND. VITAL SIGNS WT 234.8 LBS, HT 72 IN, BMI 31.84 INDEX, BP 139/67 MM HG, HR 84 /MIN, RR 18 /MIN, TEMP 97.1 F, OXYGEN SAT % 97%, SAFE IN ENV? (Y/N) YES, NA INITIALS SC 11:54, REVIEWED BY: Zahida EASTMAN RN. EXAMINATION GENERAL EXAMINATION: THE PATIENT IS ALERT, ORIENTED TIMES THREE AND COOPERATIVE. LUNGS ARE CLEAR TO AUSCULTATION. HEART SHOWS REGULAR RHYTHM, NO MURMURS AND NO GALLOPS. ASSESSMENTS SPONDYLOSIS WITHOUT MYELOPATHY OR RADICULOPATHY, CERVICAL REGION - M47.812 (PRIMARY) SPONDYLOSIS WITHOUT MYELOPATHY OR RADICULOPATHY, CERVICOTHORACIC REGION - M47.813 TREATMENT SPONDYLOSIS WITHOUT MYELOPATHY OR RADICULOPATHY, CERVICAL REGION [facility] FACET BLOCK (PAIN)[id number] MEDICATION: VALIUM TAB 2MG ORALLY (DIAZEPAM)TATIANA FINNEY 04/24/2020 12:20:40 PM > VERIFIED AUGUSTINE ECHEVARRIA 04/24/2020 12:25:39 PM > ADMINISTERED MEDICATION: OXYCODONE HCL TAB 5MG ORALLY TATIANA FINNEY 04/24/2020 12:20:54 PM > VERIFIED AUGUSTINE ECHEVARRIA 04/24/2020 12:26:00 PM > ADMINISTERED SALINE LOCKMATATIANA CURIEL 04/24/2020 1:02:47 PM > SL TO RIGHT AC 20G ON FIRST ATTEMPT, PT TOLERATED WELL THIS PROCEDURE WAS REVIEWED BY TATIANA FINNEY ON 04/26/2020 AT 15:38 PM EST COMPLETION OF PROCEDURAL VISIT WHEN MEETS CRITERIAAUGUSTINE EHCEVARRIA 04/24/2020 2:16:02 PM > CRITERIA MET PROCEDURES PAIN NURSING RECORD PROCEDURE IN ROOM 1325, PHYSICIAN IN ROOM 1339, START 1349, FINISH 1354, PHYSICIAN OUT OF ROOM 1356, OUT OF ROOM 1400, ECG NORMAL SINUS, PATIENT SHIELDED YES, SAFETY STRAP YES, PREP CHLOROPREP BY Zahida EASTMAN RN, DRESSING TEGADERM BY DR WHYTE LOC: AUGUSTINE ECHEVARRIA 04/24/2020 1:38:58 PM > , 1. ALERT, ORIENTED RESP: AUGUSTINE ECHEVARRIA 04/24/2020 1:39:01 PM > , 1. REGULAR, NO DYSPNEA COLOR: AUGUSTINE ECHEVARRIA 04/24/2020 1:39:05 PM > , 1. PINK SKIN: AUGUSTINE ECHEVARRIA 04/24/2020 1:39:08 PM > , 1. WARM, DRY POSITION: AUGUSTINE ECHEVARRIA 04/24/2020 1:39:11 PM > , 1. PRONE VITALS: AUGUSTINE ECHEVARRIA 04/24/2020 1:30:15 PM > 146/94-78-18-97% AUGUSTINE ECHEVARRIA 04/24/2020 13:45 PM. 138/30-27-44--96% AUGUSTINE ECHEVARRIA 04/24/2020 14:00 PM> 160/83-74-18-98% 04/24/2020 1414 > 149/86-82-18-99% NOTES Antonio EASTMAN RN COMPLETION OF PROCEDURE APPOINTMENT: POST PAIN 5 BILATERAL POSTERIOR NECK, DRESSING SITE DRY AND INTACT MID POSTERIOR NECK, IV DISCONTINUED, SITE CLEAR, N/A, CATHETER INTACT, GAIT STEADY, TEACHING COMPLETED, PATIENT ACKNOWLEDGES UNDERSTANDING YES PATIENT VERBALIZES UNDERSTANDING OF POST PROCEDURE INSTRUCTIONS, PROCEDURE APPOINTMENT COMPLETED AT 1418 BY: Antonio EASTMAN RN PN CERVICAL FACET BLOCK LOW BILATERAL CERVICAL PRE PROCEDURE DIAGNOSIS CERVICAL SPONDYLOSIS, CERVICOTHORACIC SPONDYLOSIS POST PROCEDURE DIAGNOSIS CERVICAL SPONDYLOSIS, CERVICOTHORACIC SPONDYLOSIS PROCEDURE BILATERAL C6-C7 AND BILATERAL C7-T1 THERAPEUTIC CERVICAL FACET BLOCK SURGEON DR. KEREN WHYTE CASH POSTING CLERK NONE ANESTHESIA LOCAL PRE PROCEDURE NOTE THE PATIENT HAS HISTORY OF CHRONIC CERVICAL PAIN. I EVALUATED THE PATIENT AND REVIEWED THE CHART. I WENT OVER THE RISKS, ALTERNATIVES, AND BENEFITS ASSOCIATED WITH THIS PROCEDURE. THE PATIENT WOULD LIKE TO PROCEED AND GIVE CONSENT TO PERFORMED THE PROCEDURE. THE PATIENT DENIES UNEXPLAINABLE WEIGHT LOSS, FEVER, CHILLS, OR NEW CHANGES IN URINARY OR BOWEL CONTROL. THE PATIENT IS COVID-19 NEGATIVE DESCRIPTION OF PROCEDURE THE PATIENT WAS BROUGHT TO THE PROCEDURE ROOM AND PLACED IN THE PRONE POSITION. THE CERVICOTHORACIC AREA WAS CLEANED WITH CHLORAPREP SOLUTION AND DRAPED ASEPTICALLY. THE PROCEDURE WAS DONE UNDER STERILE CONDITIONS. A TIMEOUT WAS PERFORMED WHERE THE CONSENTED SITE WAS VERIFIED WITH EVERYONE IN THE ROOM. UNDER FLUOROSCOPIC GUIDANCE, TARGET POINT WAS SELECTED AT THE RIGHT AND LEFT C6-C7 AND RIGHT AND LEFT C7-T1 CERVICAL FACET JOINT. TARGET POINTS WERE SELECTED AFTER LATERAL ROTATION AND TILT OF THE MAGNIFIER OF THE C-ARM. I CONFIRMED AGAIN THE SITE OF TARGET. LIDOCAINE 0.5% WAS USED TO NUMB THE SKIN AND THE SUBCUTANEOUS TISSUE BELOW IT. SPINAL NEEDLES, 22-GAUGE, WERE ADVANCED UNDER FLUOROSCOPIC GUIDANCE AND FOLLOWING PATIENT FEEDBACK UNTIL THE TARGETS WERE TOUCHED. THE POSITION OF THE NEEDLES WAS VERIFIED WITH AP AND LATERAL VIEWS. AFTER PROPER POSITION OF THE NEEDLES WAS ACHIEVED, ISOVUE-M DYE 30%, 0.1 ML, WAS INJECTED SHOWING SPREAD OF THE DYE. KENALOG 10 MG WAS INJECTED AT EACH SITE. THEN A SOLUTION OF 6 ML OF BUPIVACAINE 0.125% WAS USED TO FLUSH EACH SITE. THE MEDICATIONS WERE VERIFIED WITH THE NURSE. THERE WAS NO EVIDENCE OF BLOOD, PARESTHESIA OR CEREBROSPINAL FLUID DURING THE PROCEDURE. THE PATIENT WAS SENT TO THE RECOVERY ROOM. THE PATIENT WAS MOVING THE EXTREMITIES AND DOING WELL. THERE WERE NO COMPLICATIONS DURING THE PROCEDURE. ESTIMATED BLOOD LOSS WAS LESS THAN 5 ML. FLUOROSCOPY TIME WAS 14 SECONDS. POST PROCEDURE NOTE THE PATIENT WILL BE SEEN IN A FOLLOW UP IN THE NEXT FEW WEEKS. I AM LOOKING FOR LONG LASTING RELIEF FOR THE PATIENT WITH THIS INTERVENTION. INSTRUCTIONS WERE GIVEN, QUESTIONS WERE ANSWERED, AND THE PATIENT EXPRESSED UNDERSTANDING AND AGREES WITH THE PLAN. I, AARON MCCURDY, DOCUMENTED THE ABOVE INFORMATION ACTING A SCRIBE FOR DR. WHYTE. I HAVE REVIEWED THE ABOVE DOCUMENT, WRITTEN BY AARON MCCURDY, MILIEU COORDINATOR, AND I VERIFY THAT IT IS ACCURATE PROCEDURE CODES 02131 INJ PARAVERT F JNT C/T 1 LEV, MODIFIERS: 50 [id number] INJ PARAVERT F JNT C/T 2 LEV, MODIFIERS: 50 DISPOSITION & COMMUNICATION FOLLOW UP FOLLOW UP WITH SUBPOENA SERVER (REASON: POST BILATERAL THERAPEUTIC CERVICAL FACET BLOCK C5-C6, C7-T1) ELECTRONICALLY SIGNED BY KEREN WHYTE MD, MD ON 04/26/2020 AT 01:15 PM EST DISCLAIMER : THIS IS A VISIT SUMMARY EXTRACTED FROM THE [employer] CHART. IT IS NOT A COPY OF THE [employer] PROGRESS NOTE. MTDD
== END ==
LOC: M PAIN 11:40
PROVIDERS: ATTEND Anesthesiology
DX: M47.812 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lopathy, cervical region (principal); M47.813 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lopathy, cervicothoracic region; E11.9 Type 2 diabetes mellitus without complications; Z87.891 Personal history of nicotine dependence; Z79.84 Long term (current) use of oral hypoglycemic drugs; Z79.899 Other long term (current) drug therapy
CPT/HCPCS: 64490; 64491; J3301; Q9967

== ENCOUNTER → 2020-05-09 | Outpatient (CLI) | payer MEDICARE, MEDICAID ==
[~2020-05-09] MED LIST changes: -BUPIVACAINE HCL 0.25% 30ML VIAL As Ordered ONE; -ISOVUE-M 300 61% 15ML VIAL As Ordered ONE; -LIDOCAINE 1% SDV 30ML VIAL As Ordered ONE; -TRIAMCINOLONE ACETONIDE SUSP 40 MG/ML VIAL (J3301) As Ordered ONE; -diazePAM 2 MG TAB As Ordered ONE; -oxyCODONE 5MG TAB As Ordered ONE
--- NOTE | 2020-05-16 03:46 | ECWPNPC ---
PATIENT NAME: OWEN PHILLIPS : 1945 GENDER: MALE VISIT DATE: 05/09/2020 DISCHARGE DATE: 05/09/20 1500 VISIT LOCKED DATE TIME: PHYSICIAN: HARI VIGIL RESOURCE: HARI VIGIL REASON FOR APPOINTMENT 1. POST BILATERAL THERAPUTIC CERVICAL FACET BLOCK C5-C6, C6-C7, C7-T1 HISTORY OF PRESENT ILLNESS DEPRESSION SCREENING: PHQ-2 (2015 EDITION) LITTLE INTEREST OR PLEASURE IN DOING THINGS?NOT AT ALL FEELING DOWN, DEPRESSED, OR HOPELESS?NOT AT ALL TOTAL SCORE0 GENERAL: HERE FOR POST PROCEDURE FOLLOW-UP. HAD BILATERAL THERAPEUTIC CERVICAL FACET BLOCK C5-6 C7-T1 ON 04/24/2020. REPORTING MARKED REDUCTION IN PAIN POST PROCEDURE. CONTINUES WITH PHYSICAL THERAPY. CHIEF COMPLAINT IS BILATERAL UPPER ARM SHOULDER PAIN AT NIGHTTIME. OVERALL DOING VERY WELL. -. FALL RISK SCREENING: SCREENING : NO FALLS REPORTED IN THE LAST YEAR. PAIN SCREENING: PATIENT HAS A COMPLAINT OF ACUTE OR CHRONIC PAIN :YES LOCATION OF PAIN:NECK INTENSITY OF PAIN (SCALE OF 1 TO 10):4 WHAT DOES YOUR PAIN FEEL LIKE:ACHING DURATION:INTERMITTENT PAIN IS INCREASED BY:OTHERS SLEEPING PAIN IS DECREASED BY:USE OF PAIN MEDICATIONS NURSING NOTE: -. PAIN CENTER INTAKE QUESTIONS: DO YOU HAVE A HISTORY OF MRSA? :NO DO YOU TAKE A BLOOD THINNERS? :NO DO YOU HAVE ANY BLEEDING DISORDERS? :NO ANY NEW NUMBNESS OR WEAKNESS IN YOUR LEGS OR ARMS? :NO ANY PACEMAKER,DEFIBRILLATOR, OR DORSAL COLUMN STIMULATOR? :NO DO YOU HAVE ANY RASHES OR OPEN SORES? :NO ARE YOU ALLERGIC TO IV DYE? :NO ARE YOU DIABETIC? :NO ANY NEW PROBLEMS WITH YOUR MEDICATIONS? :NO HAVE YOU RECEIVED A VACCINE IN THE PAST 30 DAYS? :NO DO YOU PLAN TO RECEIVE A VACCINE IN THE NEXT 21 DAYS? :NO DO YOU NEED ANY PRESCRIPTION? :NO DO YOU TAKE ANY IMMUNOSUPPRESSIVE MEDICATIONS? :NO IS THERE A CHANCE YOU COULD BE ? :NO ARE YOU BREAST FEEDING? :NO CURRENT MEDICATIONS TAKING NUCALA 100 MG/ML SOLUTION PREFILLED SYRINGE DIRECTED SUBCUTANEOUS MONTHLY TAKING GEMFIBROZIL 600 MG TABLET 1 TABLET ORALLY DAILY TAKING JANUVIA 100 MG TABLET 1 TABLET ORALLY ONCE A DAY TAKING LISINOPRIL 20 MG TABLET 1 TABLET ORALLY ONCE A DAY TAKING PRAVASTATIN 40 40MG TABLET 1 TAB(S) ORAL DAILY TAKING AMLODIPINE BESYLATE 10 MG TABLET 1 TABLET ORALLY ONCE A DAY TAKING VITAMIN B-6 50 MG TABLET 1 TABLET ORALLY ONCE A DAY TAKING ACETAMINOPHEN 650 MG TABLET 1 TABLET NEEDED ORALLY EVERY 6 HRS TAKING OMEPRAZOLE 20 MG CAPSULE DELAYED RELEASE 1 CAPSULE ORALLY ONCE A DAY TAKING OXYBUTYNIN CHLORIDE ER 10 MG TABLET EXTENDED RELEASE 24 HOUR 1 TABLET ORALLY ONCE A DAY TAKING VITAMIN B12 TR 2000 MCG TABLET EXTENDED RELEASE 1 TABLET ORALLY ONCE A DAY TAKING GABAPENTIN 300 MG TABLET 1 TABLET ORALLY TID TAKING VITAMIN D3 25 MCG (1000 UT) TABLET CHEWABLE 1 TABLET ORALLY ONCE A DAY TAKING IBUPROFEN 800 MG TABLET 1 TABLET WITH FOOD OR MILK NEEDED ORALLY THREE TIMES A DAY MEDICATION LIST REVIEWED AND RECONCILED WITH THE PATIENT PAST MEDICAL HISTORY ARTHRITIS HYPERTENSION HYPERCHOLESTEROLEMIA DM BILATERAL CATARACT REMOVAL NEPHROLITHIASIS(SPONTANOUS PASSAGE) SYNCOPE PROSTATE CA, [id number], VANI 7 (3+4) - S/P PROSTATECTOMY ENVIRONMENTAL ALLERGIES PNEUMONIA ALLERGIES N.K.D.A. SOCIAL HISTORY GENERAL: TOBACCO USE ARE YOU A:FORMER SMOKER HOW LONG HAS IT BEEN SINCE YOU LAST SMOKED?> 10 YEARS LATEX QUESTIONNAIRE LATEX ALLERGY : HAVE YOU EVER DEVELOPED ANY TYPE OF REACTION AFTER HANDLING LATEX PRODUCTS SUCH RUBBER GLOVES, CONDOMS, DIAPHRAGMS, BALLOONS, SOCKS, OR UNDERWEAR?NO LATEX ALLERGY : HAVE YOU EVER DEVELOPED ANY TYPE OF REACTION DURING OR AFTER DENTAL APPOINTMENT, VAGINAL/RECTAL EXAMINATION, SURGICAL PROCEDURE, OR ANY OTHER EXPOSURE?NO LATEX RISK : HAVE YOU EVER HAD ANY DIFFICULTY BREATHING OR HIVES AFTER EATING OR HANDLING ANY FRUITS, OR VEGETABLES; SUCH KIWI, BANANAS, STONE FRUITS, OR CHESTNUTSNO LATEX RISK : DO YOU HAVE A PREVIOUS PERSONAL HISTORY OF MORE THAN NINE SURGERIES, SPINA BIFIDA, OR REPEATED CATHERIZATIONS? NO LATEX RISK : ARE YOU FREQUENTLY EXPOSED TO LATEX PRODUCTS IN YOUR OCCUPATION?NO DATE ASKED : 05/09/2020 ALCOHOL USE: NO. ALCOHOL SCREENING POINTS: 0, INTERPRETATION: NEGATIVE. RECREATIONAL DRUG USE DENIES. CAFFEINE 2-5/DAY. SEXUAL HX HAD SEX IN THE LAST 12 MONTHS (VAGINAL, ORAL, OR ANAL)?: YES, WITH: WOMEN ONLY, USE PROTECTION?: NO, HAVE YOU EVER HAD AN STD?: NO. 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 EXERCISE: BIKES. MARITAL STATUS: . OTHERS AT HOME: SIGNIFICANT OTHER/GIRLFRIEND. REVIEW OF SYSTEMS CONSTITUTIONAL: ANY RECENT FEVER NO . CHILLS NO . WEIGHT CHANGE OF UNKNOWN REASONS NO . GASTROENTEROLOGY: NEW UNEXPLAINABLE CHANGES IN BOWEL CONTROL NO . CONSTIPATION NO . GENITOURINARY: ANY NEW CHANGE IN BLADDER CONTROL? NO . NEUROLOGY: NEW ONSET DIZZINESS OR NEUROLOGICAL CHANGES NOT MENTIONED NO . NEW NUMBNESS OR PAIN PATTERNS NOT MENTIONED AND PERTINENT TO TODAY'S VISIT NO . CARDIOLOGY: NEW CHEST PRESSURE NO . PATIENT DENIES NO . RESPIRATORY: UNEXPLAINABLE COUGH NO . NEW SHORTNESS OF BREATH NO . VITAL SIGNS WT 234 LBS, HT 72 IN, BMI 31.73 INDEX, BP 116/56 MM HG, HR 72 /MIN, RR 18 /MIN, TEMP 97.6 F, OXYGEN SAT % 96%, SAFE IN ENV? (Y/N) YEST.NAZARIO SANTANA. EXAMINATION GENERAL EXAMINATION: GENERALAWAKE,ALERT ,PLEASANT . PSYCHAFFECT NORMAL . LUNGS:LUNG ALVARADO ARE CLEAR TO AUSCULTATION BILATERALLY. GOOD MOVEMENT OF AIR . HEART:S1, S2 IN A REGULAR RATE AND RHYTHM. NO SIGNIFICANT MURMURS, RUBS OR GALLOPS NOTED . ASSESSMENTS OTHER CHRONIC PAIN - G89.29 (PRIMARY) SPONDYLOSIS WITHOUT MYELOPATHY OR RADICULOPATHY, CERVICAL REGION - M47.812 TREATMENT OTHER CHRONIC PAIN PAIN PROCEDURE LOGDATE OF PROCEDURE1PROCEDURE:BILATERAL THERAPEUTIC CERVICAL FACET BLOCK C5-C6,C7-P2NCGWBW OF PRE SEDATEVALIUM 2MG, OXYCODONE 5MGRESULT:MARKED REDUCTION IN PAIN CONTINUES TODAY PROCEDURE CODES FA211 ESTABILISHED PATIENT [facility] CHARGE DISPOSITION & COMMUNICATION FOLLOW UP 3 MONTHS (REASON: NECK PAIN/RESPONDS WELL TO CERVICAL FACET BLOCK) ELECTRONICALLY SIGNED BY BEVERLEY PUENTE ON 05/15/2020 AT 12:46 PM EDT DISCLAIMER : THIS IS A VISIT SUMMARY EXTRACTED FROM THE [employer] CHART. IT IS NOT A COPY OF THE [employer] PROGRESS NOTE. CAIO
== END ==
LOC: M PAIN 14:15
PROVIDERS: ATTEND Nurse Practitioner Family
DX: M47.812 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lopathy, cervical region (principal); G89.29 Other chronic pain; E11.9 Type 2 diabetes mellitus without complications; Z87.891 Personal history of nicotine dependence; Z79.84 Long term (current) use of oral hypoglycemic drugs; Z79.899 Other long term (current) drug therapy

== ENCOUNTER → 2020-05-17 | Outpatient (CLI) | payer MEDICARE, MEDICAID | LOC: M LAB 15:03 | PROVIDERS: ATTEND Internal Medicine | DX: J47.9 Bronchiectasis, uncomplicated (principal) ==

== ENCOUNTER → 2020-05-19 | Outpatient (REF) | payer MEDICARE, MEDICAID | LOC: M LAB REF 15:36 | PROVIDERS: ATTEND Internal Medicine Pulmonary Disease | DX: J47.9 Bronchiectasis, uncomplicated (principal) ==

== ENCOUNTER → 2020-05-31 | Outpatient (RCR) | payer MEDICARE, MEDICAID | LOC: M PT 05-01 13:56 | PROVIDERS: ATTEND Internal Medicine | DX: M54.2 Cervicalgia (principal) ==

== ENCOUNTER → 2020-06-19 | Outpatient (CLI) | payer MEDICARE, MEDICAID | LOC: M LAB 15:01 | PROVIDERS: ATTEND Nurse Practitioner Women's Health | DX: Z85.46 Personal history of malignant neoplasm of prostate (principal) ==

== ENCOUNTER 2020-06-28 13:45 | Outpatient (RCR) | payer MEDICARE, MEDICAID | END 2020-06-30 | LOC: M PT 13:45 | PROVIDERS: ATTEND Internal Medicine | DX: Z47.89 Encounter for other orthopedic aftercare (principal); M54.2 Cervicalgia ==

== ENCOUNTER 2020-07-20 16:32 | Emergency (ER) | payer MEDICARE, MEDICAID ==
[~2020-07-20] VITALS: Ht 182.9 cm; Wt 113.8 kg
[2020-07-20 16:38] VITALS: BP 160/78
--- NOTE | 2020-07-20 17:31 | REP ---
INDICATION: injury, swelling. COMPARISON: None. FINDINGS: No acute fracture or destructive osseous lesion. The mortise is intact. There is a small plantar calcaneal heel spur. IMPRESSION: Within normal limits for age <Electronically signed by Jeovany Smith > 07/20/20 [id number]
== END 2020-07-20 21:03 | disposition left against medical advice (07) ==
LOC: M ED 16:32
DX: M77.32 Calcaneal spur, left foot (principal); Z53.9 Procedure and treatment not carried out, unspecified reason; X50.0XXA Overexertion from strenuous movement or load, initial encounter; Y92.410 Unspecified street and highway as the place of occurrence of the external cause; Y93.9 Activity, unspecified; Y99.9 Unspecified external cause status; E11.9 Type 2 diabetes mellitus without complications; I10 Essential (primary) hypertension; E78.5 Hyperlipidemia, unspecified; K21.9 Gastro-esophageal reflux disease without esophagitis; G89.29 Other chronic pain; M54.9 Dorsalgia, unspecified; Z79.899 Other long term (current) drug therapy

== ENCOUNTER → 2020-07-24 | Outpatient (CLI) | payer MEDICARE, MEDICAID ==
[2020-07-24 16:06] LABS: HEMOGLOBIN 13.4 g/dl (13.5-17.5); MEAN CORPUSCULAR HEMOGLOBIN 28.7 pg (27.0-33.0); MEAN CORPUSCULAR HGB CONC 32.7 g/dl (32.0-36.5); MEAN CORPUSCULAR VOLUME 87.8 fl (80.0-96.0); PLATELET COUNT, AUTOMATED 282 10^3/uL (150-450); RED BLOOD COUNT 4.67 10^6/uL (4.30-6.10); WHITE BLOOD COUNT 9.4 10^3/uL (4.0-10.0)
[2020-07-24 16:25] LABS: HEMOGLOBIN A1c 6.1 %
[2020-07-24 16:30] LABS: ALBUMIN 3.8 GM/DL (3.2-5.2); ALT/SGPT 32 U/L (12-78); BILIRUBIN,TOTAL 0.4 MG/DL (0.2-1.0); BLOOD UREA NITROGEN 25 MG/DL (7-18); CALCIUM LEVEL 8.8 MG/DL (8.8-10.2); CARBON DIOXIDE LEVEL 25 MEQ/L (21-32); CHLORIDE LEVEL 110 MEQ/L (98-107); CHOLESTEROL LEVEL 166 MG/DL (<200); CHOLESTEROL RISK RATIO 4.486 (<5); CPK CREATINE PHOSPHOKINASE 100 U/L (39-308); CREATININE FOR GFR 1.13 MG/DL (0.70-1.30); GLOMERULAR FILTRATION RATE > 60.0 (>42); GLUCOSE, FASTING 111 MG/DL (70-100); HDL CHOLESTEROL 37 MG/DL (>40); LDL CHOLESTEROL 99 MG/DL (<100); NON-HDL-C 129 MG/DL; POTASSIUM SERUM 4.5 MEQ/L (3.5-5.1); SODIUM LEVEL 142 MEQ/L (136-145); TOTAL PROTEIN 7.4 GM/DL (6.4-8.2); TRIGLYCERIDES LEVEL 152 MG/DL (<150)
[2020-07-24 16:40] LABS: MALB URINE SIEMENS 23.8 MG/L; MAU/CREAT RATIO 11.9 MCG/MG (0.0-30.0)
== END ==
LOC: M LAB 15:37
PROVIDERS: ATTEND Nurse Practitioner Family
DX: E78.5 Hyperlipidemia, unspecified (principal); I10 Essential (primary) hypertension; E11.9 Type 2 diabetes mellitus without complications

== ENCOUNTER → 2020-08-02 | Outpatient (REF) | payer MEDICARE, MEDICAID ==
[2020-08-02 17:50] LABS: APPEARANCE, URINE CLEAR (CLEAR); BACTERIA, URINE AUTO NEGATIVE (NEGATIVE); BILIRUBIN, URINE AUTO NEGATIVE (NEGATIVE); BLOOD, URINE BLOOD NEGATIVE (NEGATIVE); COLOR, URINE YELLOW (YELLOW); GLUCOSE, URINE (UA) AUTO NEGATIVE (NEGATIVE); KETONE, URINE AUTO NEGATIVE (NEGATIVE); LEUKOCYTE ESTERASE, URINE AUTO NEGATIVE (NEGATIVE); MUCUS, URINE SMALL (NEGATIVE); NITRITE, URINE AUTO NEGATIVE (NEGATIVE); PROTEIN, URINE AUTO 2+ mg/dL (NEGATIVE); RBC, URINE AUTO 0 /HPF (0-3); SPECIFIC GRAVITY URINE AUTO 1.025 (1.002-1.035); SQUAMOUS EPITHELIAL CELL UR AU 0 /HPF (0-6); UROBILINOGEN, URINE AUTO 0.2 mg/dL (0.0-2.0); WBC, URINE AUTO 1 /HPF (0-3)
== END ==
LOC: M SMT 17:14
PROVIDERS: ATTEND Nurse Practitioner Women's Health
DX: R31.9 Hematuria, unspecified (principal)

== ENCOUNTER → 2020-08-07 | Outpatient (CLI) | payer MEDICARE, MEDICAID ==
[2020-08-07 15:48] LABS: BLOOD UREA NITROGEN 23 MG/DL (7-18); CALCIUM LEVEL 8.8 MG/DL (8.8-10.2); CARBON DIOXIDE LEVEL 25 MEQ/L (21-32); CHLORIDE LEVEL 107 MEQ/L (98-107); CREATININE FOR GFR 1.02 MG/DL (0.70-1.30); GLOMERULAR FILTRATION RATE > 60.0 (>42); GLUCOSE, FASTING 109 MG/DL (70-100); POTASSIUM SERUM 4.3 MEQ/L (3.5-5.1); SODIUM LEVEL 140 MEQ/L (136-145)
== END ==
LOC: M LAB 14:38
PROVIDERS: ATTEND Nurse Practitioner Women's Health
DX: R31.9 Hematuria, unspecified (principal)

== ENCOUNTER → 2020-08-07 | Outpatient (CLI) | payer MEDICARE, MEDICAID | LOC: M LAB 14:40 | PROVIDERS: ATTEND Nurse Practitioner Family | DX: E55.9 Vitamin D deficiency, unspecified (principal); R31.9 Hematuria, unspecified ==

== ENCOUNTER → 2020-08-09 | Outpatient (CLI) | payer MEDICARE, MEDICAID ==
--- NOTE | 2020-08-12 05:29 | ECWPNPC ---
PATIENT NAME: OWEN PHILLIPS : 1945 GENDER: MALE VISIT DATE: 08/09/2020 DISCHARGE DATE: 08/09/20 1448 VISIT LOCKED DATE TIME: PHYSICIAN: HARI VIGIL RESOURCE: HARI VIGIL REASON FOR APPOINTMENT 1. NECK PAIN/RESPONDS WELL TO CERVICAL FACET BLOCK HISTORY OF PRESENT ILLNESS GENERAL: HERE FOR FOLLOW-UP OF PERSISTENT NECK PAIN. HAD BILATERAL CERVICAL THERAPEUTIC FACET BLOCKS IN APRIL. PATIENT WAS DOING VERY GOOD WITH IMPROVED ACTIVITY TOLERANCE AND SLEEP AFTER THE PROCEDURE UNTIL A FEW WEEKS AGO. HAS HAD GREATER THAN 3 MONTHS IMPROVEMENT IN PAIN POST PROCEDURE. PATIENT WOULD LIKE TO REPEAT THE PROCEDURE. -. FALL RISK SCREENING: SCREENING : NO FALLS REPORTED IN THE LAST YEAR. PAIN SCREENING: PATIENT HAS A COMPLAINT OF ACUTE OR CHRONIC PAIN :YES LOCATION OF PAIN:NECK INTENSITY OF PAIN (SCALE OF 1 TO 10):6 WHAT DOES YOUR PAIN FEEL LIKE:INTERMITTENT, SORE DURATION:INTERMITTENT PAIN IS INCREASED BY:ACTIVITIES PAIN IS DECREASED BY:USE OF PAIN MEDICATIONS, OTHERS HEAT AND ICE NURSING NOTE: -. PAIN CENTER INTAKE QUESTIONS: DO YOU HAVE A HISTORY OF MRSA? :NO DO YOU TAKE A BLOOD THINNERS? :NO DO YOU HAVE ANY BLEEDING DISORDERS? :NO ANY NEW NUMBNESS OR WEAKNESS IN YOUR LEGS OR ARMS? :NO ANY PACEMAKER,DEFIBRILLATOR, OR DORSAL COLUMN STIMULATOR? :NO DO YOU HAVE ANY RASHES OR OPEN SORES? :NO ARE YOU ALLERGIC TO IV DYE? :NO ARE YOU DIABETIC? :NO ANY NEW PROBLEMS WITH YOUR MEDICATIONS? :NO HAVE YOU RECEIVED A VACCINE IN THE PAST 30 DAYS? :NO DO YOU PLAN TO RECEIVE A VACCINE IN THE NEXT 21 DAYS? :NO DO YOU NEED ANY PRESCRIPTION? :NO DO YOU TAKE ANY IMMUNOSUPPRESSIVE MEDICATIONS? :NO IS THERE A CHANCE YOU COULD BE ? :NO ARE YOU BREAST FEEDING? :NO CURRENT MEDICATIONS TAKING OXYBUTYNIN CHLORIDE ER 10 MG TABLET EXTENDED RELEASE 24 HOUR 1 TABLET ORALLY ONCE A DAY TAKING NUCALA 100 MG/ML SOLUTION PREFILLED SYRINGE DIRECTED SUBCUTANEOUS MONTHLY TAKING GEMFIBROZIL 600 MG TABLET 1 TABLET ORALLY DAILY TAKING JANUVIA 100 MG TABLET 1 TABLET ORALLY ONCE A DAY TAKING LISINOPRIL 20 MG TABLET 1 TABLET ORALLY ONCE A DAY TAKING PRAVASTATIN 40 40MG TABLET 1 TAB(S) ORAL DAILY TAKING AMLODIPINE BESYLATE 10 MG TABLET 1 TABLET ORALLY ONCE A DAY TAKING VITAMIN B-6 50 MG TABLET 1 TABLET ORALLY ONCE A DAY TAKING ACETAMINOPHEN 650 MG TABLET 1 TABLET NEEDED ORALLY EVERY 6 HRS TAKING OMEPRAZOLE 20 MG CAPSULE DELAYED RELEASE 1 CAPSULE ORALLY ONCE A DAY TAKING VITAMIN B12 TR 2000 MCG TABLET EXTENDED RELEASE 1 TABLET ORALLY ONCE A DAY TAKING VITAMIN D3 25 MCG (1000 UT) TABLET CHEWABLE 1 TABLET ORALLY ONCE A DAY TAKING GABAPENTIN 300 MG TABLET 1 TABLET ORALLY TID TAKING IBUPROFEN 800 MG TABLET 1 TABLET WITH FOOD OR MILK NEEDED ORALLY THREE TIMES A DAY TAKING CEPHALEXIN 500 MG CAPSULE 1 CAPSULE 1 HOUR PRIOR TO YOUR CYSTSOCOPY ORALLY ONCE MEDICATION LIST REVIEWED AND RECONCILED WITH THE PATIENT PAST MEDICAL HISTORY ARTHRITIS HYPERTENSION HYPERCHOLESTEROLEMIA DM BILATERAL CATARACT REMOVAL NEPHROLITHIASIS(SPONTANOUS PASSAGE) SYNCOPE PROSTATE CA, [id number], VANI 7 (3+4) - S/P PROSTATECTOMY ENVIRONMENTAL ALLERGIES PNEUMONIA ALLERGIES N.K.D.A. SOCIAL HISTORY GENERAL: TOBACCO USE ARE YOU A:FORMER SMOKER HOW LONG HAS IT BEEN SINCE YOU LAST SMOKED?> 10 YEARS LATEX QUESTIONNAIRE LATEX ALLERGY : HAVE YOU EVER DEVELOPED ANY TYPE OF REACTION AFTER HANDLING LATEX PRODUCTS SUCH RUBBER GLOVES, CONDOMS, DIAPHRAGMS, BALLOONS, SOCKS, OR UNDERWEAR?NO LATEX ALLERGY : HAVE YOU EVER DEVELOPED ANY TYPE OF REACTION DURING OR AFTER DENTAL APPOINTMENT, VAGINAL/RECTAL EXAMINATION, SURGICAL PROCEDURE, OR ANY OTHER EXPOSURE?NO LATEX RISK : HAVE YOU EVER HAD ANY DIFFICULTY BREATHING OR HIVES AFTER EATING OR HANDLING ANY FRUITS, OR VEGETABLES; SUCH KIWI, BANANAS, STONE FRUITS, OR CHESTNUTSNO LATEX RISK : DO YOU HAVE A PREVIOUS PERSONAL HISTORY OF MORE THAN NINE SURGERIES, SPINA BIFIDA, OR REPEATED CATHERIZATIONS? NO LATEX RISK : ARE YOU FREQUENTLY EXPOSED TO LATEX PRODUCTS IN YOUR OCCUPATION?NO DATE ASKED : 08/09/2020 ALCOHOL USE: NO. ALCOHOL SCREENING POINTS: 0, INTERPRETATION: NEGATIVE. RECREATIONAL DRUG USE DENIES. CAFFEINE 2-5/DAY. SEXUAL HX HAD SEX IN THE LAST 12 MONTHS (VAGINAL, ORAL, OR ANAL)?: YES, WITH: WOMEN ONLY, USE PROTECTION?: NO, HAVE YOU EVER HAD AN STD?: NO. 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 LANGUAGE UZBEK. 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 EXERCISE: BIKES. MARITAL STATUS: . OTHERS AT HOME: SIGNIFICANT OTHER/GIRLFRIEND. REVIEW OF SYSTEMS CONSTITUTIONAL: ANY RECENT FEVER NO . CHILLS NO . WEIGHT CHANGE OF UNKNOWN REASONS NO . GASTROENTEROLOGY: NEW UNEXPLAINABLE CHANGES IN BOWEL CONTROL NO . CONSTIPATION NO . GENITOURINARY: ANY NEW CHANGE IN BLADDER CONTROL? NO . NEUROLOGY: NEW ONSET DIZZINESS OR NEUROLOGICAL CHANGES NOT MENTIONED NO . NEW NUMBNESS OR PAIN PATTERNS NOT MENTIONED AND PERTINENT TO TODAY'S VISIT NO . CARDIOLOGY: NEW CHEST PRESSURE NO . PATIENT DENIES NO . RESPIRATORY: UNEXPLAINABLE COUGH NO . NEW SHORTNESS OF BREATH NO . VITAL SIGNS WT 250.6 LBS, HT 72 IN, BMI 33.98 INDEX, BP 135/65 MM HG, HR 78 /MIN, RR 18 /MIN, TEMP 98.6 F, OXYGEN SAT % 95%, SAFE IN ENV? (Y/N) YES, NA INITIALS SC 14:04. EXAMINATION GENERAL EXAMINATION: LUNGS: LUNG SOUNDS ARE CLEAR . HEART: HEART RATE REGULAR . MUSCULOSKELETAL:*, MUSCLE STRENGTH TESTING 5/5 BILATERAL UPPER EXTREMITIES. . CERVICAL:+ FOR PAIN WITH PALPATION OF CERVICAL SPINE. + FOR PAIN WITH PALPATION OF CERVICAL PARASPINALS.SPECIFIC POINT TENDERNESS NOTED OV C4/5-/C5/6,C7,T1 CERVICAL FACETS WITH EXTENSION AND FACET LOADING.. DIAGNOSTIC TESTS REVIEWED CERVICAL MRI . ASSESSMENTS LUMBOSACRAL SPONDYLOSIS WITHOUT MYELOPATHY - M47.817 (PRIMARY) TREATMENT LUMBOSACRAL SPONDYLOSIS WITHOUT MYELOPATHY SALINE LOCK (ORDERED FOR 08/23/2020) MEDICATION: VALIUM TAB 2MG ORALLY (DIAZEPAM) (ORDERED FOR 08/23/2020) MEDICATION: OXYCODONE HCL TAB 5MG ORALLY (ORDERED FOR 08/23/2020) NOTES: BILATERAL THERAPEUTIC CERVICAL FACET BLOCK C5-6,C7-T1 PRINTED AND REVIEWED PRE PROCEDURE INFORMATION, PATIENT VERBALIZED UNDERSTANDING LAISHA SANTANA. PROCEDURE CODES FA211 ESTABILISHED PATIENT [facility] FACILITY CHARGE DISPOSITION & COMMUNICATION FOLLOW UP POST (REASON: BILATERAL THERAPEUTIC CERVICAL FACET BLOCK C5-6,C7-T1) ELECTRONICALLY SIGNED BY BEVERLEY PUENTE ON 08/11/2020 AT 08:34 AM EDT DISCLAIMER : THIS IS A VISIT SUMMARY EXTRACTED FROM THE [employer] CHART. IT IS NOT A COPY OF THE [employer] PROGRESS NOTE. CAIO
== END ==
LOC: M PAIN 14:00
PROVIDERS: ATTEND Nurse Practitioner Family
DX: M47.817 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lopathy, lumbosacral region (principal); Z87.891 Personal history of nicotine dependence; Z79.899 Other long term (current) drug therapy

== ENCOUNTER → 2020-08-12 | Outpatient (CLI) | payer MEDICARE, MEDICAID ==
[~2020-08-12] MED LIST changes: +ISOVUE-370 76% 100ML VIAL As Ordered ONE
--- NOTE | 2020-08-12 11:03 | REP ---
INDICATION: HEMATURIA. History of prostate carcinoma. COMPARISON: Comparison CT study August 24, 2013.. TECHNIQUE: Contrast dose: 100 ML of Isovue [address] technique: Helical scanning is acquired and overlapping 1.5 mm and contiguous 3 mm axial images are reformatted. In addition, maximum intensity projection and multiplanar re-formation images are generated in sagittal and coronal imaging projections. FINDINGS: Digital preliminary smoke inspector radiograph is unremarkable. Normal bowel gas pattern. There are patchy areas of bibasilar interstitial fibrosis noted in the lung bases. These appear somewhat more prominent than on the 2014 study. There is no evidence of pleural effusion or upper abdominal ascites. There is mild diffuse fatty infiltration of the liver. The liver and spleen are normal in size homogeneous in texture. No focal hepatic lesion is seen. Normal adrenal glands are observed. No abnormality is noted in the pancreas. There are small calcified gallstones in the dependent portion the gallbladder again noted. Some vascular calcification is seen including calcific plaquing at the origin of the superior mesenteric artery. Bilateral intrarenal nephrolithiasis is observed with multiple stones in each kidney. The largest calculus in the right kidney measures 6 mm, upper pole location. The largest calculus in the left kidney is cyst similar in size, 6 mm. There are several 5-6 mm calculi on the left. No hydronephrosis is seen on either side. The previous study showed multiple intrarenal stones. Several of these are larger than on the prior exam. There is a small dystrophic calcification in pericolonic fat on the right and small bowel mesenteric fibrotic changes are again seen as described in 2014. Small and large bowel loops some cells are unremarkable. A normal appendix is seen in the right lower quadrant. There is left colonic diverticulosis without CT evidence of diverticulitis as previously noted. The prostate is surgically absent. Urinary bladder is unremarkable. No pelvic mass or adenopathy is seen. No bladder mass is observed. Delayed images show no evidence of filling defect in the upper tract collecting system. The ureters describe a normal course to the bladder. No lytic or blastic bony destructive lesion is appreciated. There are degenerative spondylosis changes in the lumbar spine. IMPRESSION: Bilateral intrarenal nephrolithiasis with multiple intrarenal calculi in each kidney. No hydronephrosis seen. Status post prostatectomy. Left colonic diverticulosis and a minimal diffuse fatty infiltration of the liver. Cholelithiasis. <Electronically signed by Frantz Pringle > 08/12/20 [id number]
== END ==
LOC: M RAD 09:48
PROVIDERS: ATTEND Nurse Practitioner Women's Health
DX: N20.0 Calculus of kidney (principal); K57.30 Diverticulosis of large intestine without perforation or abscess without bleeding; K76.0 Fatty (change of) liver, not elsewhere classified; K80.20 Calculus of gallbladder without cholecystitis without obstruction; Z85.46 Personal history of malignant neoplasm of prostate; Z98.890 Other specified postprocedural states
CPT/HCPCS: 74178; Q9967

== ENCOUNTER → 2020-08-22 | Outpatient (REF) | payer MEDICARE ==
[~2020-08-22] MED LIST changes: -ISOVUE-370 76% 100ML VIAL As Ordered ONE
== END ==
LOC: M SFHCPLAZ 09:56
PROVIDERS: ATTEND Family Medicine
DX: E53.8 Deficiency of other specified B group vitamins (principal)
CPT/HCPCS: 36415; 82607; G0463

== ENCOUNTER → 2020-09-06 | Outpatient (CLI) | payer MEDICARE, MEDICAID ==
[2020-09-06 13:55] LABS: BASO # 0.1 10^3/uL (0.0-0.2); BASO % 0.8 % (0.0-1.0); EOS # 0.1 10^3/uL (0.0-0.5); EOS % 1.7 % (0.0-3.0); HEMATOCRIT 40.6 % (42.0-52.0); HEMOGLOBIN 13.3 g/dl (13.5-17.5); LYMPH # 1.6 10^3/uL (1.5-5.0); LYMPH % 22.8 % (24.0-44.0); MEAN CORPUSCULAR HEMOGLOBIN 28.9 pg (27.0-33.0); MEAN CORPUSCULAR HGB CONC 32.8 g/dl (32.0-36.5); MEAN CORPUSCULAR VOLUME 88.3 fl (80.0-96.0); MONO # 0.8 10^3/uL (0.0-0.8); MONO % 11.5 % (2.0-8.0); NEUTROPHILS # 4.5 10^3/uL (1.5-8.5); NEUTROPHILS % 62.8 % (36.0-66.0); PLATELET COUNT, AUTOMATED 249 10^3/uL (150-450); WHITE BLOOD COUNT 7.1 10^3/uL (4.0-10.0)
[2020-09-06 14:38] LABS: ALT/SGPT 40 U/L (12-78); BILIRUBIN,TOTAL 0.5 MG/DL (0.2-1.0); BLOOD UREA NITROGEN 19 MG/DL (7-18); CALCIUM LEVEL 8.6 MG/DL (8.8-10.2); CARBON DIOXIDE LEVEL 26 MEQ/L (21-32); CHLORIDE LEVEL 107 MEQ/L (98-107); CREATININE FOR GFR 1.21 MG/DL (0.70-1.30); GLOMERULAR FILTRATION RATE > 60.0 (>42); GLUCOSE, FASTING 119 MG/DL (70-100); POTASSIUM SERUM 4.3 MEQ/L (3.5-5.1); SODIUM LEVEL 140 MEQ/L (136-145); TOTAL PROTEIN 7.3 GM/DL (6.4-8.2)
== END ==
LOC: M LAB 12:47
PROVIDERS: ATTEND Internal Medicine
DX: Z01.812 Encounter for preprocedural laboratory examination (principal); J84.9 Interstitial pulmonary disease, unspecified; Z20.822 Contact with and (suspected) exposure to COVID-19
CPT/HCPCS: 36415; 80053; 85025; 86038; 86140; 86225; 86235; U0003

== ENCOUNTER → 2020-09-06 | Outpatient (CLI) | payer MEDICARE, MEDICAID | LOC: M LABSMTC 12:33 | PROVIDERS: ATTEND Anesthesiology | DX: Z01.812 Encounter for preprocedural laboratory examination (principal); Z20.822 Contact with and (suspected) exposure to COVID-19 ==

== ENCOUNTER → 2020-09-11 | Outpatient (CLI) | payer MEDICARE ==
[~2020-09-11] MED LIST changes: +BUPIVACAINE HCL 0.25% 30ML VIAL As Ordered ONE; +ISOVUE-M 300 61% 15ML VIAL As Ordered ONE; +LIDOCAINE 1% SDV 30ML VIAL As Ordered ONE; +TRIAMCINOLONE ACETONIDE SUSP 40 MG/ML VIAL (J3301) As Ordered ONE; +diazePAM 2 MG TAB As Ordered ONE; +oxyCODONE 5MG TAB As Ordered ONE
--- NOTE | 2020-09-11 14:36 | REP ---
INDICATION: BILATERAL THERAPEUTIC CERVICAL FACET BLOCK. COMPARISON: None. TECHNIQUE: Two views. Eleven seconds of fluoroscopy time is reported. FINDINGS: A sequence of 2 last image hold fluoroscopically obtained spot radiograph(s) of the cervical spine document(s) needle position(s) and contrast injection associated with injection procedure. IMPRESSION: Procedural imaging. <Electronically signed by Frantz Pringle > 09/11/20 [id number]
--- NOTE | 2020-09-15 03:27 | ECWPNPC ---
PATIENT NAME: OWEN PHILLIPS : 1945 GENDER: MALE VISIT DATE: 09/11/2020 DISCHARGE DATE: 09/11/20 1318 VISIT LOCKED DATE TIME: PHYSICIAN: KEREN WHYTE MD PHYSICIAN PAGER NO: ACTIVE RESOURCE: KEREN WHYTE MD REASON FOR APPOINTMENT 1. BILATERAL THERAPEUTIC CERVICAL FACET BLOCK C5-6,C7-T1 HISTORY OF PRESENT ILLNESS GENERAL: -. FALL RISK SCREENING: SCREENING : NO FALLS REPORTED IN THE LAST YEAR. NONE. PAIN SCREENING: PATIENT HAS A COMPLAINT OF ACUTE OR CHRONIC PAIN :YES LOCATION OF PAIN:NECK, UPPER BACK, MID BACK INTENSITY OF PAIN (SCALE OF 1 TO 10):8 WHAT DOES YOUR PAIN FEEL LIKE:ACHING DURATION:INTERMITTENT, AWAKENS FROM SLEEP PAIN IS INCREASED BY:OTHERS COMES AND GOES PAIN IS DECREASED BY:OTHERS PREVIOUS PROCEDURES NURSING NOTE: -. PAIN CENTER INTAKE QUESTIONS: DO YOU HAVE A HISTORY OF MRSA? :NO DO YOU TAKE A BLOOD THINNERS? :NO DO YOU HAVE ANY BLEEDING DISORDERS? :NO ANY NEW NUMBNESS OR WEAKNESS IN YOUR LEGS OR ARMS? :NO ANY PACEMAKER,DEFIBRILLATOR, OR DORSAL COLUMN STIMULATOR? :NO DO YOU HAVE ANY RASHES OR OPEN SORES? :NO ARE YOU ALLERGIC TO IV DYE? :NO ARE YOU DIABETIC? :NO BORDERLINE- DOESNT CHECK AT HOME ANY NEW PROBLEMS WITH YOUR MEDICATIONS? :NO HAVE YOU RECEIVED A VACCINE IN THE PAST 30 DAYS? :NO DO YOU PLAN TO RECEIVE A VACCINE IN THE NEXT 21 DAYS? :NO DO YOU TAKE ANY IMMUNOSUPPRESSIVE MEDICATIONS? :NO ANY HISTORY OF SEIZURES? :NO ANY HISTORY OF CARDIAC ISSUES OR EVENTS? :NO DO YOU HAVE ANY KIDNEY OR LIVER DISEASE? :NO DO YOU HAVE SLEEP APNEA? :NO ANY RECENT HEAD INJURY? :NO DO YOU HAVE ANY NEW INFECTIONS? :NO IS THERE A CHANCE YOU COULD BE ? :NO ARE YOU BREAST FEEDING? :NO WHEN DID YOU LAST EAT? : 09/10/201999 WHEN DID YOU LAST DRINK? : 0800 WHAT DID YOU LAST DRINK? : WATER NAME OF PERSON DRIVING YOU HOME? : BINA DO YOU HAVE ANY OTHER QUESTIONS OR CONCERNS? : NO CURRENT MEDICATIONS TAKING LISINOPRIL 20 MG TABLET 1 TABLET ORALLY ONCE A DAY, NOTES: 09/10/20 2200 TAKING OMEPRAZOLE 40 MG CAPSULE DELAYED RELEASE 1 CAPSULE ORALLY ONCE A DAY, NOTES: 0800 TAKING VITAMIN D3 25 MCG (1000 UT) TABLET CHEWABLE 1 TABLET ORALLY ONCE A DAY, NOTES: 09/10/202199 TAKING AMLODIPINE BESYLATE 10 MG TABLET 1 TABLET ORALLY ONCE A DAY, NOTES: 09/10/202199 TAKING NUCALA 100 MG/ML SOLUTION PREFILLED SYRINGE DIRECTED SUBCUTANEOUS MONTHLY, NOTES: 09/02/20 0800 TAKING ACETAMINOPHEN 650 MG TABLET 1 TABLET NEEDED ORALLY EVERY 6 HRS, NOTES: 09/10/202199 TAKING GABAPENTIN 300 MG TABLET 1 TABLET ORALLY TID, NOTES: 09/10/202199 TAKING IBUPROFEN 800 MG TABLET 1 TABLET WITH FOOD OR MILK NEEDED ORALLY THREE TIMES A DAY, NOTES: 09/10/202199 TAKING FLUTICASONE-SALMETEROL 100-50 MCG/DOSE AEROSOL POWDER BREATH ACTIVATED 1 PUFF INHALATION TWICE A DAY, NOTES: 09/10/202199 TAKING ALBUTEROL SULFATE (2.5 MG/3ML) 0.083% NEBULIZATION SOLUTION 3 ML NEEDED INHALATION TWICE A DAY, NOTES: 09/10/202199 TAKING SODIUM CHLORIDE 3 % NEBULIZATION SOLUTION 4 ML INHALATION TWICE A DAY, NOTES: UNKOWN TAKING JANUVIA 50 MG TABLET 1 TABLET ORALLY ONCE A DAY, NOTES: 09/10/202199 TAKING PRAVASTATIN 40 40MG TABLET 1 TAB(S) ORAL DAILY, NOTES: 09/10/202199 TAKING VITAMIN B12 1000 MCG TABLET EXTENDED RELEASE 1 TABLET ORALLY ONCE A DAY, NOTES: 09/10/202199 NOT-TAKING CEPHALEXIN 500 MG CAPSULE 1 CAPSULE 1 HOUR PRIOR TO YOUR CYSTSOCOPY ORALLY ONCE NOT-TAKING OXYBUTYNIN CHLORIDE ER 10 MG TABLET EXTENDED RELEASE 24 HOUR 1 TABLET ORALLY ONCE A DAY MEDICATION LIST REVIEWED AND RECONCILED WITH THE PATIENT PAST MEDICAL HISTORY PROSTATE CA, [id number], VANI 7 (3+4) - S/P PROSTATECTOMY - [facility] UROLOGY OSTEOARTHRITIS OF SPINE HYPERTENSION HYPERCHOLESTEROLEMIA DM2 WITHOUT COMPLICATION; FOLLOWS WITH DR. SMITH FOR DIABETIC EYE EXAM HX NEPHROLITHASIS WITH SPONTANEOUS PASSAGE GERD VITAMIN D DEFICIENCY VITAMIN B12 DEFICIENCY HX RECURRENT PNEUMONIA - DR. KOLB CHURG-ISAI DISEASE - DR. PURI FORMER SMOKER, QUIT IN 1970 ALLERGIES N.K.D.A. SURGICAL HISTORY B/L CATARACT SURGERY 2013 BACK INJECTIONS X 2 12/2012 TRUS 07/23/2013 ROBOTIC ASSISTED RADICAL PROSTATECTOMY AND BILATERAL PELVIC LYMPH NODE DIESSECTION 09/07/13 SOCIAL HISTORY GENERAL: TOBACCO USE ARE YOU A:FORMER SMOKER HOW LONG HAS IT BEEN SINCE YOU LAST SMOKED?> 10 YEARS LATEX QUESTIONNAIRE LATEX ALLERGY : HAVE YOU EVER DEVELOPED ANY TYPE OF REACTION AFTER HANDLING LATEX PRODUCTS SUCH RUBBER GLOVES, CONDOMS, DIAPHRAGMS, BALLOONS, SOCKS, OR UNDERWEAR?NO LATEX ALLERGY : HAVE YOU EVER DEVELOPED ANY TYPE OF REACTION DURING OR AFTER DENTAL APPOINTMENT, VAGINAL/RECTAL EXAMINATION, SURGICAL PROCEDURE, OR ANY OTHER EXPOSURE?NO LATEX RISK : HAVE YOU EVER HAD ANY DIFFICULTY BREATHING OR HIVES AFTER EATING OR HANDLING ANY FRUITS, OR VEGETABLES; SUCH KIWI, BANANAS, STONE FRUITS, OR CHESTNUTSNO LATEX RISK : DO YOU HAVE A PREVIOUS PERSONAL HISTORY OF MORE THAN NINE SURGERIES, SPINA BIFIDA, OR REPEATED CATHERIZATIONS? NO LATEX RISK : ARE YOU FREQUENTLY EXPOSED TO LATEX PRODUCTS IN YOUR OCCUPATION?NO DATE ASKED : 08/09/2020 ALCOHOL USE: NO. ALCOHOL SCREENING POINTS: 0, INTERPRETATION: NEGATIVE. RECREATIONAL DRUG USE DENIES. CAFFEINE 2-5/DAY. SEXUAL HX HAD SEX IN THE LAST 12 MONTHS (VAGINAL, ORAL, OR ANAL)?: YES, WITH: WOMEN ONLY, USE PROTECTION?: NO, HAVE YOU EVER HAD AN STD?: NO. HIV / HEP-C SCREENING HIV TEST OFFERED TO PATIENT:YES DATE OFFERED:08/22/2020 TEST ACCEPTED:NO REASON:PATIENT DECLINED BROCHURE PROVIDED TO PATIENTYES EPISCOPALIAN BAPTISM. LANGUAGE ALBANIAN. 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 EXERCISE: BIKES. MARITAL STATUS: . OTHERS AT HOME: SIGNIFICANT OTHER/GIRLFRIEND. - HAS THE PATIENT BEEN EDUCATED REGARDING HIS/HER PLAN OF CARE?YES HAS THE PATIENT BEEN EDUCATED REGARDING PAIN, THE RISK FOR PAIN, THE IMPORTANCE OF EFFECTIVE PAIN MANAGEMENT, AND THE PAIN ASSESSMENT PROCESS?YES HOSPITALIZATION/MAJOR DIAGNOSTIC PROCEDURE SYNCOPE [facility] 03/14/13 PNEUMONIA 01/22-01/24/17 PNEUMONIA X2 TIMES 06/2017 VITAL SIGNS WT 250.2 LBS, HT 72 IN, BMI 33.93 INDEX, BP 153/72 MM HG, HR 74 /MIN, RR 18 /MIN, TEMP 97.9 F, OXYGEN SAT % 98%, SAFE IN ENV? (Y/N) YES, NA INITIALS ND 11:01, REVIEWED BY: APA. KADEEM RN. EXAMINATION GENERAL: THE PATIENT IS ALERT, ORIENTED TIMES THREE AND COOPERATIVE. LUNGS ARE CLEAR TO AUSCULTATION. HEART SHOWS REGULAR RHYTHM, NO MURMURS AND NO GALLOPS. 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 CANDI QUAN 09/11/2020 11:27:09 AM > ADMINISTERED MEDICATION: PAIN OXYCODONE HCL TAB 5MG ORALLY WILLIAM FRANKEL 09/11/2020 11:21:13 AM > VERIFIED. CANDI QUAN 09/11/2020 11:27:21 AM > ADMINISTERED SALINE LOCKPETRACANDI Sanz 09/11/2020 11:35:04 AM > 20G STARTED IN LEFT AC. BLOOD RETURN PRESENT, FLUSHING WELL, PATIENT TOLERATED WELL DES MATIAS 09/11/2020 1:27:39 PM > SL D/C'D AT 1310. SITE CLEAR WITHOUT REDNESS OR SWELLING. PROCEDURES PAIN NURSING RECORD PROCEDURE IN ROOM 1200, PHYSICIAN IN ROOM 1239, START 1243, FINISH 1249, PHYSICIAN OUT OF ROOM 1250, ECG NORMAL SINUS, PATIENT SHIELDED YES, SAFETY STRAP YES, PREP CHLOROPREP Melvi QUAN RN, DRESSING TEGADERM DR. WHYTE LOC: DES MATIAS 09/11/2020 12:23:58 PM > 1. ALERT, ORIENTED DES MATIAS 09/11/2020 1:11:31 PM > 1. ALERT, ORIENTED RESP: DES MATIAS 09/11/2020 12:24:01 PM > 1. REGULAR, NO DYSPNEA DES MATIAS 09/11/2020 1:11:37 PM > 1. REGULAR, NO DYSPNEA COLOR: DES MATIAS 09/11/2020 12:24:05 PM > 1. PINK DES MATIAS 09/11/2020 1:11:44 PM > 1. PINK SKIN: DES MATIAS 09/11/2020 12:24:08 PM > 1. WARM, DRY DES MATIAS 09/11/2020 1:12:08 PM > 1. WARM, DRY POSITION: DES MATIAS 09/11/2020 12:24:14 PM > 1. PRONE DES MATIAS 09/11/2020 1:12:15 PM > 5. SITTING VITALS: %GUZMAN MATIAS 09/11/2020 11:49:17 AM > HR 71 O2 94% BP 141/66 PETRDHAVALCANDI R 09/11/2020 12:06:10 PM > 130/61, 64, 18, 94% DES MATIAS 09/11/2020 12:24:28 PM > 136/63,60,16,92% JULIENNE MATIASITA 09/11/2020 12:39:40 PM > 130/64,56,16,92% POLLYDES 09/11/2020 12:54:52 PM > 150/78, 63,16,97% JULIENNE MATIASITA 09/11/2020 1:12:23 PM > 159/74,62,18,98% NOTES BEDSIDE REPORT GIVEN TO Melvi MATIAS RN AT 12:19 COMPLETION OF PROCEDURE APPOINTMENT: POST PAIN 4, DRESSING SITE DRY AND INTACT, IV DISCONTINUED, SITE CLEAR, CATHETER INTACT, GAIT STEADY TAKEN TO VEHICLE VIA W/C PER PROTOCOL DUE TO PROCEDURE, TEACHING COMPLETED, PATIENT ACKNOWLEDGES UNDERSTANDING YES, PROCEDURE APPOINTMENT COMPLETED AT 1317 PN CERVICAL FACET BLOCK LOW BILATERAL CERVICAL PRE PROCEDURE DIAGNOSIS CERVICAL SPONDYLOSIS POST PROCEDURE DIAGNOSIS CERVICAL SPONDYLOSIS PROCEDURE BILATERAL C5-C6 AND BILATERAL C7-T1 THERAPEUTIC CERVICAL FACET BLOCK SURGEON DR. KEREN WHYTE WEB DESIGN SPECIALIST NONE ANESTHESIA LOCAL PRE PROCEDURE NOTE THE PATIENT HAS HISTORY OF CHRONIC CERVICAL PAIN. I EVALUATED THE PATIENT AND REVIEWED THE CHART. I WENT OVER THE RISKS, ALTERNATIVES, AND BENEFITS ASSOCIATED WITH THIS PROCEDURE. THE PATIENT WOULD LIKE TO PROCEED AND GIVE CONSENT TO PERFORMED THE PROCEDURE. THE PATIENT DENIES UNEXPLAINABLE WEIGHT LOSS, FEVER, CHILLS, OR NEW CHANGES IN URINARY OR BOWEL CONTROL. THE PATIENT IS COVID-19 NEGATIVE DESCRIPTION OF PROCEDURE THE PATIENT WAS BROUGHT TO THE PROCEDURE ROOM AND PLACED IN THE PRONE POSITION. THE CERVICOTHORACIC AREA WAS CLEANED WITH CHLORAPREP SOLUTION AND DRAPED ASEPTICALLY. THE PROCEDURE WAS DONE UNDER STERILE CONDITIONS. A TIMEOUT WAS PERFORMED WHERE THE CONSENTED SITE WAS VERIFIED WITH EVERYONE IN THE ROOM. UNDER FLUOROSCOPIC GUIDANCE, TARGET POINT WAS SELECTED AT THE RIGHT AND LEFT C5-C6 AND RIGHT AND LEFT C7-T1 CERVICAL FACET JOINT. TARGET POINTS WERE SELECTED AFTER LATERAL ROTATION AND TILT OF THE MAGNIFIER OF THE C-ARM. I CONFIRMED AGAIN THE SITE OF TARGET. LIDOCAINE 0.5% WAS USED TO NUMB THE SKIN AND THE SUBCUTANEOUS TISSUE BELOW IT. SPINAL NEEDLES, 22-GAUGE, WERE ADVANCED UNDER FLUOROSCOPIC GUIDANCE AND FOLLOWING PATIENT FEEDBACK UNTIL THE TARGETS WERE TOUCHED. THE POSITION OF THE NEEDLES WAS VERIFIED WITH AP AND LATERAL VIEWS. AFTER PROPER POSITION OF THE NEEDLES WAS ACHIEVED, ISOVUE-M DYE 30%, 0.1 ML, WAS INJECTED SHOWING SPREAD OF THE DYE. KENALOG 10 MG WAS INJECTED AT EACH SITE. THEN A SOLUTION OF 6 ML OF BUPIVACAINE 0.125% WAS USED TO FLUSH EACH SITE. THE MEDICATIONS WERE VERIFIED WITH THE NURSE. THERE WAS NO EVIDENCE OF BLOOD, PARESTHESIA OR CEREBROSPINAL FLUID DURING THE PROCEDURE. THE PATIENT WAS SENT TO THE RECOVERY ROOM. THE PATIENT WAS MOVING THE EXTREMITIES AND DOING WELL. THERE WERE NO COMPLICATIONS DURING THE PROCEDURE. ESTIMATED BLOOD LOSS WAS LESS THAN 5 ML. FLUOROSCOPY TIME WAS 11 SECONDS. POST PROCEDURE NOTE THE PATIENT WILL BE SEEN IN A FOLLOW UP IN THE NEXT FEW WEEKS. I AM LOOKING FOR LONG LASTING RELIEF FOR THE PATIENT WITH THIS INTERVENTION. INSTRUCTIONS WERE GIVEN, QUESTIONS WERE ANSWERED, AND THE PATIENT EXPRESSED UNDERSTANDING AND AGREES WITH THE PLAN. I, AARON MCCURDY, DOCUMENTED THE ABOVE INFORMATION ACTING A SCRIBE FOR DR. WHYTE. I HAVE REVIEWED THE ABOVE DOCUMENT, WRITTEN BY AARON MCCURDY, INTENSIVE CARE UNIT NURSE, AND I VERIFY THAT IT IS ACCURATE PROCEDURE CODES 17375 INJ PARAVERT F JNT C/T 1 LEV, MODIFIERS: 50 30240 INJ PARAVERT F JNT C/T 2 LEV, MODIFIERS: 50 DISPOSITION & COMMUNICATION FOLLOW UP FOLLOW UP WITH CREDIT CARD CLERK (REASON: POST BILATERAL THERAPEUTIC CERVICAL FACET BLOCK C5-C6, C7-T1) ELECTRONICALLY SIGNED BY KEREN WHYTE MD, MD ON 09/14/2020 AT 02:15 PM EDT DISCLAIMER : THIS IS A VISIT SUMMARY EXTRACTED FROM THE [employer] CHART. IT IS NOT A COPY OF THE [employer] PROGRESS NOTE. MTDD
== END ==
LOC: M PAIN 11:00
PROVIDERS: ATTEND Anesthesiology
DX: M47.812 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lopathy, cervical region (principal); E11.9 Type 2 diabetes mellitus without complications; K21.9 Gastro-esophageal reflux disease without esophagitis; E55.9 Vitamin D deficiency, unspecified; Z87.891 Personal history of nicotine dependence; Z79.84 Long term (current) use of oral hypoglycemic drugs; Z79.899 Other long term (current) drug therapy
CPT/HCPCS: 64490; 64491; J3301; Q9967

== ENCOUNTER → 2020-09-26 | Outpatient (CLI) | payer MEDICARE ==
[~2020-09-26] MED LIST changes: -BUPIVACAINE HCL 0.25% 30ML VIAL As Ordered ONE; -ISOVUE-M 300 61% 15ML VIAL As Ordered ONE; -LIDOCAINE 1% SDV 30ML VIAL As Ordered ONE; -TRIAMCINOLONE ACETONIDE SUSP 40 MG/ML VIAL (J3301) As Ordered ONE; -diazePAM 2 MG TAB As Ordered ONE; -oxyCODONE 5MG TAB As Ordered ONE
--- NOTE | 2020-09-28 03:35 | ECWPNPC ---
PATIENT NAME: OWEN PHILLIPS : 1945 GENDER: MALE VISIT DATE: 09/26/2020 DISCHARGE DATE: 09/26/20 1428 VISIT LOCKED DATE TIME: PHYSICIAN: HARI VIGIL PHYSICIAN PAGER NO: ACTIVE RESOURCE: HARI VIGIL REASON FOR APPOINTMENT 1. POST BILATERAL THERAPEUTIC CERVICAL FACET BLOCK C5-6,C7-T1 HISTORY OF PRESENT ILLNESS GENERAL: HERE FOR POST PROCEDURE FOLLOW-UP. HAD BILATERAL THERAPEUTIC CERVICAL FACET BLOCKS C5-6, C7-T1 ON 09/11/2020. REPORTING MARKED REDUCTION IN PAIN THAT CONTINUES TODAY. HE DOES HOME EXERCISES AND TAKES IBUPROFEN AND GABAPENTIN WHICH HE FINDS HELPFUL. OVERALL DOING WELL. -. FALL RISK SCREENING: SCREENING : NO FALLS REPORTED IN THE LAST YEAR. PAIN SCREENING: PATIENT HAS A COMPLAINT OF ACUTE OR CHRONIC PAIN :YES LOCATION OF PAIN:NECK INTENSITY OF PAIN (SCALE OF 1 TO 10):2 WHAT DOES YOUR PAIN FEEL LIKE:INTERMITTENT, SORE DURATION:INTERMITTENT PAIN IS INCREASED BY:OTHERS DURING THE NIGHT AND WHEN HE WAKE UP IN THE MORNING PAIN IS DECREASED BY:USE OF PAIN MEDICATIONS, OTHERS ICE NURSING NOTE: -. PAIN CENTER INTAKE QUESTIONS: DO YOU HAVE A HISTORY OF MRSA? :NO DO YOU TAKE A BLOOD THINNERS? :NO DO YOU HAVE ANY BLEEDING DISORDERS? :NO ANY NEW NUMBNESS OR WEAKNESS IN YOUR LEGS OR ARMS? :NO ANY PACEMAKER,DEFIBRILLATOR, OR DORSAL COLUMN STIMULATOR? :NO DO YOU HAVE ANY RASHES OR OPEN SORES? :NO ARE YOU ALLERGIC TO IV DYE? :NO ARE YOU DIABETIC? :NO BORDER LINE ANY NEW PROBLEMS WITH YOUR MEDICATIONS? :NO HAVE YOU RECEIVED A VACCINE IN THE PAST 30 DAYS? :NO DO YOU PLAN TO RECEIVE A VACCINE IN THE NEXT 21 DAYS? :NO DO YOU NEED ANY PRESCRIPTION? :NO DO YOU TAKE ANY IMMUNOSUPPRESSIVE MEDICATIONS? :NO IS THERE A CHANCE YOU COULD BE ? :NO ARE YOU BREAST FEEDING? :NO CURRENT MEDICATIONS TAKING LISINOPRIL 20 MG TABLET 1 TABLET ORALLY ONCE A DAY TAKING OMEPRAZOLE 40 MG CAPSULE DELAYED RELEASE 1 CAPSULE ORALLY ONCE A DAY TAKING VITAMIN D3 25 MCG (1000 UT) TABLET CHEWABLE 1 TABLET ORALLY ONCE A DAY TAKING AMLODIPINE BESYLATE 10 MG TABLET 1 TABLET ORALLY ONCE A DAY TAKING NUCALA 100 MG/ML SOLUTION PREFILLED SYRINGE DIRECTED SUBCUTANEOUS MONTHLY TAKING ACETAMINOPHEN 650 MG TABLET 1 TABLET NEEDED ORALLY EVERY 6 HRS TAKING GABAPENTIN 300 MG TABLET 1 TABLET ORALLY TID TAKING IBUPROFEN 800 MG TABLET 1 TABLET WITH FOOD OR MILK NEEDED ORALLY THREE TIMES A DAY TAKING FLUTICASONE-SALMETEROL 100-50 MCG/DOSE AEROSOL POWDER BREATH ACTIVATED 1 PUFF INHALATION TWICE A DAY TAKING ALBUTEROL SULFATE (2.5 MG/3ML) 0.083% NEBULIZATION SOLUTION 3 ML NEEDED INHALATION TWICE A DAY TAKING SODIUM CHLORIDE 3 % NEBULIZATION SOLUTION 4 ML INHALATION TWICE A DAY, NOTES: UNKOWN TAKING JANUVIA 50 MG TABLET 1 TABLET ORALLY ONCE A DAY TAKING PRAVASTATIN 40 40MG TABLET 1 TAB(S) ORAL DAILY TAKING VITAMIN B12 1000 MCG TABLET EXTENDED RELEASE 1 TABLET ORALLY ONCE A DAY NOT-TAKING CEPHALEXIN 500 MG CAPSULE 1 CAPSULE 1 HOUR PRIOR TO YOUR CYSTSOCOPY ORALLY ONCE NOT-TAKING OXYBUTYNIN CHLORIDE ER 10 MG TABLET EXTENDED RELEASE 24 HOUR 1 TABLET ORALLY ONCE A DAY MEDICATION LIST REVIEWED AND RECONCILED WITH THE PATIENT PAST MEDICAL HISTORY PROSTATE CA, [id number], VANI 7 (3+4) - S/P PROSTATECTOMY - [facility] UROLOGY OSTEOARTHRITIS OF SPINE HYPERTENSION HYPERCHOLESTEROLEMIA DM2 WITHOUT COMPLICATION; FOLLOWS WITH DR. SMITH FOR DIABETIC EYE EXAM HX NEPHROLITHASIS WITH SPONTANEOUS PASSAGE GERD VITAMIN D DEFICIENCY VITAMIN B12 DEFICIENCY HX RECURRENT PNEUMONIA - DR. KOLB CHURG-ISAI DISEASE - DR. PURI FORMER SMOKER, QUIT IN 1970 ALLERGIES N.K.D.A. SOCIAL HISTORY GENERAL: TOBACCO USE ARE YOU A:FORMER SMOKER 1973 HOW LONG HAS IT BEEN SINCE YOU LAST SMOKED?> 10 YEARS LATEX QUESTIONNAIRE LATEX ALLERGY : HAVE YOU EVER DEVELOPED ANY TYPE OF REACTION AFTER HANDLING LATEX PRODUCTS SUCH RUBBER GLOVES, CONDOMS, DIAPHRAGMS, BALLOONS, SOCKS, OR UNDERWEAR?NO LATEX ALLERGY : HAVE YOU EVER DEVELOPED ANY TYPE OF REACTION DURING OR AFTER DENTAL APPOINTMENT, VAGINAL/RECTAL EXAMINATION, SURGICAL PROCEDURE, OR ANY OTHER EXPOSURE?NO LATEX RISK : HAVE YOU EVER HAD ANY DIFFICULTY BREATHING OR HIVES AFTER EATING OR HANDLING ANY FRUITS, OR VEGETABLES; SUCH KIWI, BANANAS, STONE FRUITS, OR CHESTNUTSNO LATEX RISK : DO YOU HAVE A PREVIOUS PERSONAL HISTORY OF MORE THAN NINE SURGERIES, SPINA BIFIDA, OR REPEATED CATHERIZATIONS? NO LATEX RISK : ARE YOU FREQUENTLY EXPOSED TO LATEX PRODUCTS IN YOUR OCCUPATION?NO DATE ASKED : 09/26/2020 ALCOHOL USE: NO. ALCOHOL SCREENING POINTS: 0, INTERPRETATION: NEGATIVE. RECREATIONAL DRUG USE DENIES. CAFFEINE 2-5/DAY. SEXUAL HX HAD SEX IN THE LAST 12 MONTHS (VAGINAL, ORAL, OR ANAL)?: YES, WITH: WOMEN ONLY, USE PROTECTION?: NO, HAVE YOU EVER HAD AN STD?: NO. HIV / HEP-C SCREENING HIV TEST OFFERED TO PATIENT:YES DATE OFFERED:08/22/2020 TEST ACCEPTED:NO REASON:PATIENT DECLINED BROCHURE PROVIDED TO PATIENTYES LATTER DAY ORIENTAL ORTHODOX. LANGUAGE INDONESIAN. 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 EXERCISE: BIKES. MARITAL STATUS: . OTHERS AT HOME: SIGNIFICANT OTHER/GIRLFRIEND. - HAS THE PATIENT BEEN EDUCATED REGARDING HIS/HER PLAN OF CARE?YES HAS THE PATIENT BEEN EDUCATED REGARDING PAIN, THE RISK FOR PAIN, THE IMPORTANCE OF EFFECTIVE PAIN MANAGEMENT, AND THE PAIN ASSESSMENT PROCESS?YES REVIEW OF SYSTEMS CONSTITUTIONAL: ANY RECENT FEVER NO . CHILLS NO . WEIGHT CHANGE OF UNKNOWN REASONS NO . GASTROENTEROLOGY: NEW UNEXPLAINABLE CHANGES IN BOWEL CONTROL NO . CONSTIPATION NO . GENITOURINARY: ANY NEW CHANGE IN BLADDER CONTROL? NO . NEUROLOGY: NEW ONSET DIZZINESS OR NEUROLOGICAL CHANGES NOT MENTIONED NO . NEW NUMBNESS OR PAIN PATTERNS NOT MENTIONED AND PERTINENT TO TODAY'S VISIT NO . CARDIOLOGY: NEW CHEST PRESSURE NO . PATIENT DENIES NO . RESPIRATORY: UNEXPLAINABLE COUGH NO . NEW SHORTNESS OF BREATH NO . VITAL SIGNS WT 248.6 LBS, HT 72 IN, BMI 33.71 INDEX, BP 131/66 MM HG, HR 75 /MIN, RR 18 /MIN, TEMP 97.0 F, OXYGEN SAT % 96%, SAFE IN ENV? (Y/N) YES, NA INITIALS SC 14:01T.NAZARIO SANTANA. EXAMINATION GENERAL EXAMINATION: GENERALAWAKE,ALERT ,PLEASANT . PSYCHAFFECT NORMAL . LUNGS:LUNG ALVARADO ARE CLEAR TO AUSCULTATION BILATERALLY. GOOD MOVEMENT OF AIR . HEART:S1, S2 IN A REGULAR RATE AND RHYTHM. NO SIGNIFICANT MURMURS, RUBS OR GALLOPS NOTED . ASSESSMENTS OTHER CHRONIC PAIN - G89.29 (PRIMARY) LUMBOSACRAL SPONDYLOSIS WITHOUT MYELOPATHY - M47.817 TREATMENT OTHER CHRONIC PAIN REFILL GABAPENTIN TABLET, 300 MG, 1 TABLET, ORALLY, TID, 90 DAY(S), 270 TABLET, REFILLS 0 REFILL IBUPROFEN TABLET, 800 MG, 1 TABLET WITH FOOD OR MILK NEEDED, ORALLY, THREE TIMES A DAY, 90 DAY(S), 270 TABLET PAIN PROCEDURE LOGDATE OF PROCEDURE1PROCEDURE:BILATERAL THERAPEUTIC CERVICAL FACET BLOCK 5-C6,C7-[id number] OF PRE SEDATEVALIUM 2MG, OXYCODOE 5MGRESULT:MARKED REDUCTION NPAIN CONTINUES TODAY NOTES: CONTINUE HOME EXERCISE AND STRETCHING. PROCEDURE CODES FA211 ESTABILISHED PATIENT [facility] CHARGE DISPOSITION & COMMUNICATION FOLLOW UP 3 MONTHS (REASON: MED MGMNT) ELECTRONICALLY SIGNED BY BEVERLEY PUENTE ON 09/27/2020 AT 01:03 PM EDT DISCLAIMER : THIS IS A VISIT SUMMARY EXTRACTED FROM THE [employer] CHART. IT IS NOT A COPY OF THE [employer] PROGRESS NOTE. CAIO
== END ==
LOC: M PAIN 13:45
PROVIDERS: ATTEND Nurse Practitioner Family
DX: G89.29 Other chronic pain (principal); M47.817 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lopathy, lumbosacral region; I10 Essential (primary) hypertension; E78.00 Pure hypercholesterolemia, unspecified; E11.9 Type 2 diabetes mellitus without complications; K21.9 Gastro-esophageal reflux disease without esophagitis; E55.9 Vitamin D deficiency, unspecified; E53.9 Vitamin B deficiency, unspecified; Z87.891 Personal history of nicotine dependence; Z79.84 Long term (current) use of oral hypoglycemic drugs; Z79.899 Other long term (current) drug therapy

== ENCOUNTER → 2020-10-24 | Outpatient (CLI) | payer MEDICARE ==
[2020-10-24 19:01] LABS: HEMOGLOBIN A1c 6.1 %
== END ==
LOC: M PLALAB 15:02
PROVIDERS: ATTEND Family Medicine
DX: E11.9 Type 2 diabetes mellitus without complications (principal)
CPT/HCPCS: 36415; 83036; G0463

== ENCOUNTER → 2020-12-28 | Outpatient (CLI) | payer MEDICARE | LOC: M PAIN 14:15 | PROVIDERS: ATTEND Anesthesiology | DX: M46.08 Spinal enthesopathy, sacral and sacrococcygeal region (principal); G89.29 Other chronic pain; Z87.891 Personal history of nicotine dependence; Z79.82 Long term (current) use of aspirin; Z79.899 Other long term (current) drug therapy ==

== ENCOUNTER → 2021-01-29 | Outpatient (CLI) | payer MEDICARE, MEDICAID ==
[~2021-01-29] MED LIST changes: +AMLO1TAB25 PO; +AZEL0.055; +FLUT1BLS4 INH; +GABA-282 PO; +IBUP80TA PO; +LOPI600T PO; +MEPO100A SC; +OMEP40CA5 PO; +[UNRECOGNIZED DRUG - CODE] PO
== END ==
LOC: M LABSMTC 10:07
PROVIDERS: ATTEND Anesthesiology
DX: Z01.812 Encounter for preprocedural laboratory examination (principal); Z20.822 Contact with and (suspected) exposure to COVID-19

== ENCOUNTER 2021-02-02 07:41 | Day surgery (SDC) | payer MEDICARE ==
[~2021-02-02] VITALS: Ht 182.9 cm; Wt 111.1 kg
[~2021-02-02 07:41] MED LIST changes: +NS 1,000 ML IV ONE; +OMEP-221 PO; -OMEP40CA5 PO
--- OUTSIDE RECORDS SUMMARY | 2021-02-02 07:45 | CCD ---
Author Author [facility] Organization [facility] Address Unknown Phone Unavailable Care Team Providers Care Button Broacher Name Role Phone Boo Morales Unavailable PROBLEMS Type Condition ICD9-CM Code [id number] Code Onset Dates Condition S tatus W/U Status Risk SNOMED Code Notes Problem Erectile dysfunction following radical prostatectomy N52.31 Active confirmed 278411504 Problem Personal history of malignant neoplasm of prostate Z85.46 Active confirmed 236209542 Problem 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lopathy, lumbosacral region M47.817 Active confirmed 62201873 Problem Other chronic pain G89.29 Active confirmed 8 5209225 Problem 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 lopathy, cervicothoracic region M47.813 Active confirmed 86390405 Problem 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lopathy, lumbar region M47.816 Active confirmed 003011821 Problem Hypertriglyceridemia E78.1 Active confirmed 015443839 Problem Essential hypertension I10 Active confirmed 70030723 Problem Vitamin D deficiency E55.9 Active confirmed 96278208 Problem Dry eyes H04.123 Active confirmed 738299678 Problem Diabetes mellitus without complication E11.9 A ctive confirmed 870257237 Problem Spinal enthesopathy, sacral and sacrococcygeal region M46.08 Active confirmed 11747802 Problem 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lopathy, cervical region M47.812 Active confirmed 526312300 Problem 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 Active confirmed 08993604 Problem Osteoarthritis involving multiple joints on both sides of body M15.9 Active confirmed 825923744 Problem Gastroesophageal reflux dise ase, unspecified whether esophagitis present K21.9 Active confirmed 077113533 Problem Bilateral renal stones N20.0 Active confirmed 73477453 ALLERGIES No Known Allergies ENCOUNTERS from 1945 to 2021-01-22 Encounter Location Date Provider Diagnosis [facility] [address] [phone] [place] [address] Jan, Boo Morales 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lopathy, lumbar region M47.816 IMMUNIZATIONS Vaccine Route Administration Date Status COVID-19 dose #2 given elsewhere Unspecified Unknown Jun Administered COVID-19 dose #1 given elsewhere Unspecified Unknown May Administered Influenza (High Dose 65 & up) Unknown Mar 10, 2015 Re fused Influenza 6mo & up Fluzone Unknown June 12, 2015 Refus ed SOCIAL HISTORY Tobacco Use: Social History Observation Description Date Details (start date - stop date) Former Smoker Sex Assigned At : Social History Observation Description Sex Assigned At Unknown Education: Question Answer Notes Level of Education: High School Audit Question Answer Notes Total Score: 0 Interpretation: Alcohol Education Drug and Alcohol Question Answer Notes Total Score: 0 Interpretation: No problems reported Tobacco Use: Question Answer Notes Are you a: former smoker 1973 How long has it been since you last smoked? > 10 years REASON FOR REFERRAL No Information VITAL SIGNS No information MEDICATIONS Medication SIG (Take, Route, Frequency, Duration) Notes Start Da te End Date Status Omeprazole 40 MG 1 capsule Orally Once a day Active Doxycycline Hyclate 100 MG 1 tablet Orally bid for 10 day(s) Nov, Active Acetaminophen 650 mg 1 tablet as needed Orally every 6 hrs Active Pravastatin 40 40mg 1 tab(s) oral daily for 90 days Active Aspirin EC 81 MG 1 tablet Orally Once a day for 90 day(s) Oct, Active Ibuprofen 800 MG 1 tablet with food or milk as needed Ora lly Three times a day Oct, Active amLODIPine Besylate 10 MG 1 tablet Orally Once a day for 90 days Active Fluticasone-Salmeterol 100-50 MCG/DOSE 1 puff Inhalation Twice a day Active Ciprofloxacin HCl 0.3 % 2 drops in bothe eyes Ophthalmic tid for 10 days Nov, Active Vitamin B12 1000 MCG 1 tablet Orally Once a day for 90 day(s) Aug, Active Lisinopril 20 MG 1 tablet Orally twice a day for 90 days Active Sodium Chloride 3 % 4 ml Inhalation Twice a day UNKOWN Active Vitamin D3 25 MCG (1000 UT) 1 tablet Orally Once a day Not-Taking Gabapentin 300 MG 1 tablet Orally tid for 30 days Jan, Active Albuterol Sulfate (2.5 MG/3ML) 0.083% 3 ml as needed Inhalation twi ce a day Active Nucala 100 MG/ML as directed 300mg Subcutaneous monthly Active PROCEDURES No Information RESULTS No Results REASON FOR VISIT Refill gabapentin-Dr. Morales MEDICAL (GENERAL) HISTORY Type Description Date Medical History Prostate CA, [id number], Gleas on 7 (3+4) - S/P Prostatectomy - [facility] Urology Medical History Osteoarthritis of spine Medical History Hypertension Medical History Hypercholesterolemia Medical History DM2 without complication; fo dylan with Dr. Kidd for diabetic eye exam Medical History Hx nephrolithasis with spontaneous passa ge Medical History GERD Medical History Vitamin D deficiency Medical History Vitamin B12 deficiency Medical History Hx recurrent pneumonia - Dr. Duran Medical History Churg-marialuisa disease - Dr. Duran Medical History Former smoker, quit in 1969 Surgical History B/L Cataract Surgery 2012 Surgical History Back injections x 2 12/2012 Surgical History TRUS 07/23/2013 Surgical History Robotic Assisted Radical Pro statectomy and bilateral Pelvic Lymph Node Diessection 09/07/13 Surgical History cysto 08/2020 Hospitalization History Syncope [facility] 03/14/13 Hospitalization History PNEUMONIA 01/22-01/24/17 Hospitalization History Pneumonia x2 times 06/2017 Goals Section No Information Health Concerns No Information MEDICAL EQUIPMENT No Information MENTAL STATUS No Information FUNCTIONAL STATUS No Information ASSESSMENTS Encounter Date Diagnosis Assessment Notes Treatment Notes Treatm ent Clinical Notes Jan, Spondylosis without myelopat hy or radiculopathy, lumbar region (ICD-10 - M47.816) PLAN OF TREATMENT Medication Medication Name Sig Start Date Stop Date amLODIPine Besylate 10 MG 1 tablet Orally Once a day for 90 days Gabapentin 300 MG 1 tablet Orally tid for 30 days Jan, Next Appt Details Provider Name:Boo Morales, 2021-03-20 01:45:00 PM, [address], , [place], [address], Provider Name:Jojo Alvarado, 2021-04-23 02:30:00 PM, [address], , [place], [address], Provider Name:Dafne Freeman, 2 01:30:00 PM, [address], , [place], [address], Insurance Providers Payer Name Payer Address Payer Phone Insured Name Patient Relati onship to Insured Coverage Start Date Coverage End Date MEDICARE COMPLETE [facility] [address] [address] [facility] [address] OWEN PHILLIPS self
--- OUTSIDE RECORDS SUMMARY | 2021-02-02 07:45 | CCD | Continuity of Care Document ---
Author Author Brad KOLB M.D. Organization Unknown Address [address] [place] [address] Phone [phone] Care Team Providers Care Boxcar Weigher Name Role Phone Nabeel Salguero M.D. AUTM AUTM Unavailable Jojo Alvarado M.D. AUTM [phone] Problems Active Problems Provider Date Idiopathic pulmonary fibrosis Ashlie Gamino M.D. Onset: 03/04/2017 Chronic pansinusitis Mahesh Mccullough MD Onset: 03/12/2017 Cough Mahesh Mccullough MD Onset: 03/12/2017 Difficulty breathing Mahesh Mccullough MD Onset: 03/12/2017 Posterior rhinorrhea Mahesh Mccullough MD Onset: 03/12/2017 Ex-smoker Mahesh Mccullough MD Onset: 03/12/2017 Difficulty speaking Mahesh Mccullough MD Onset: 03/12/2017 Other nonspecific abnormal finding of lung field Mahesh rodriguez MD Onset: 03/12/2017 Pulmonary function studies abnormal Ashlie Gamino M.D. Onset: 03/04/2017 Acute respiratory failure with hypoxia Mahesh Mccullough MD O nset: 07/22/2017 Social History Type Date Description Comments Sex Unknown ETOH Use Rarely consumes alcohol Tobacco Use Start: 03/03/56 End: 03/03/68 Patient is a forme r smoker hx: 1/2ppd since age 11, quit age 23 Smoking Status Reviewed: 01/15/21 Patient is a former smoker hx : 1/2ppd since age 11, quit age 23 Allergies and adverse reactions Description No Known Drug Allergies Medications Active Medications SIG Qnty Indications Ordering Provide r Date Azelastine HCL (Nasal) 0.15% Solut ion 1 spray each nostril twice a day 30ml M30.1 Janae Kolb M .D. 01/15/2021 Miralax 17GM/Scoop Powder use as instructed by doctor for bowel prep 510gm Z12.11 Yao Cadet MD 12/12/2020 Miralax 17GM/Scoop Powder take 17 grams by mouth once daily. 510units Z12.11 Yao Cadet MD 12/12/[address] take 4 tabs by mouth prior to procedure per instructions. 4tabs Z12.11 Yao Cadet MD 12/12/2020 Sodium Chloride 3% Nebulizer 1 vial (3ml) nebulzied 2-3 times a day as needed 750ml J47.9 Brenda Kolb M.D. 05/11/2020 Fluticasone Propionate/Salmeterol Diskus 100-50mcg/Dose Aerosol 1 puff twice a day 60units Binu Kolb M.D. 04/06/2020 Nucala 100mg Solution Rec 300mg subcutaneous every four weeks 3units Ashlie raza M.D. 08/04/2018 Albuterol Sulfate (2 .5mg/3ML) 0.083% Nebulizer 1 vial via neb twice a day and every 4 hours as needed dx: j47.9 360ml Janae Kolb M.D. 10/09/2017 Flonase Allergy Relief 50mcg/Act Suspension 1 spray each nostril twice a day as needed Unknown Ibuprofen 800mg Tablets tid Unknown Vitamin B12 1000mcg Tablets ER 1 by mouth every day Unknown Multi Vitamin Daily Tablets Daily Unknown Pravastatin Sodium 40mg Tablets 1 by mouth every day Unknown Lisinopril 20mg Tablets bid Unknown Amlodipine Besylate 10mg Tablets 1 by mouth every day Unknown Omeprazole 40mg Capsules DR 1 by mouth every day Unknown Aspirin Ec Low Dose 81mg Tablets DR Daily Unknown Acapella Misc G reen use as directed twice a day after nebulized Albuterol dx: J47.9 Unkno wn Medications Administered in Office Medication SIG Qnty Indications Ordering Provider Date Covid-19 vaccine, Unspecified Inj ection Unknown 06/11/2020 Covid-19 vaccine, Unspecified Inj ection Unknown 05/21/2020 Immunizations Description No Information Available Vital Signs Date Vital Result Comment 01/15/2021 2:23pm BP Systolic 142 mmHg BP Diastolic 76 mmHg Heart Rate 87 /min O2 % BldC Oximetry 93 % Height 70 inches 5'10" Weight 250.00 lb BMI (Body Mass Index) 35.9 kg/m2 [place] Body Weight 166 lb Weight 113.400 kg BSA (Body Surface Area) 2.29 m2 12/12/2020 2:21pm BP Systolic 136 mmHg BP Diastolic 64 mmHg Height 70 inches 5'10" Weight 252.00 lb BMI (Body Mass Index) 36.2 kg/m2 [place] Body Weight 166 lb Weight 114.307 kg BSA (Body Surface Area) 2.30 m2 Results Test Acquired Date Facility Test Result H/L Range Note FVL/[place] 01/15/2021 [facility] SEE IMAGE FVC-Pred 4.15 L FVC-Pre 3.02 L FVC-%Pred-Pre 72 L FVC-LLN 3.22 L Fev1-Pred 2.99 L Fev1-Pre 2.53 L Fev1-%Pred-Pre 84 L Fev1-LLN 2.20 L Fev6-Pred 3.89 L Fev6-Pre 3.02 L Fev6-%Pred-Pre 77 L Fev6-LLN 2.98 L Xky7lrj-Arvr 72 % Mko1haq-Ymv 84 % Wvx7mrb-%Pred-Pre 115 % Cgh9cfp-XXP 62 % Ylk5owj-Pkha 94 % Eit2rcb-Akj 100 % Ipr4dmf-%Pred-Pre 106 % FEFMax-Pred 7.60 L/E/sec FEFMax-Pre 5.00 L/E/sec FEFMax-%Pred-Pre 65 L/E/sec FEFMax-LLN 5.28 L/E/sec Ydg1679-Zpde 2.12 L/E/sec Tea9083-Wub 3.38 L/E/sec Zry8531-%Pred-Pre 158 L/E/sec Irk9861-FXX 0.52 L/E/sec ExpTime-Pre 5.70 sec Ecd2dtm7-Gdar 77 % Mmr5nba9-Wes 84 % Laq0swk8-%Pred-Pre 109 % Roe0mdy1-MYO 68 % CBC With Differential 09/06/2020 [facility] [address] [place] [address] [phone] White Blood Count 7.1 10 Normal 4.0-10.0 Red Blood Count 4.60 10 Normal 4.30-6.10 Hemoglobin 13.3 g/dL Low 13.5-17.5 Hematocrit 40.6 % Low 42.0-52.0 Mean Corpuscular Volume 88.3 fl Normal 80.0-96.0 Mean Corpuscular Hemoglobin 28.9 pg Normal 27.0-33.0 Mean Corpuscular HGB Conc 32.8 g/dL Normal 32.0-36.5 Red Cell Distribution Width 12.9 % Normal 11.5-14.5 Platelet Count, Automated 249 10 Normal 150-450 Neutrophils % 62.8 % Normal 36.0-66.0 Lymph % 22.8 % Low 24.0-44.0 [facility] % 11.5 % High 2.0-8.0 Eos % 1.7 % Normal 0.0-3.0 Baso % 0.8 % Normal 0.0-1.0 Immature Granulocyte % 0.4 % Normal 0-3.0 Nucleated Red Blood Cell % 0.0 % Normal 0-0 Neutrophils # 4.5 10 Normal 1.5-8.5 Lymph # 1.6 10 Normal 1.5-5.0 [facility] # 0.8 10 Normal 0.0-0.8 Eos # 0.1 10 Normal 0.0-0.5 Baso # 0.1 10 Normal 0.0-0.2 Comprehensive Metabolic Profil 09/06/2020 [facility] [address] [place] [address] [phone] Glucose, Fasting 119 mg/dL High 70-100 Blood Urea Nitrogen 19 mg/dL High 7-18 Creatinine For GFR 1.21 mg/dL Normal 0.70-1.30 Glomerular Filtration Rate > 60.0 Normal >42 1 Sodium Level 140 mEq/L Normal 136-145 Potassium Serum 4.3 mEq/L Normal 3.5-5.1 Chloride Level 107 mEq/L Normal 98-107 Carbon Dioxide Level 26 mEq/L Normal 21-32 Anion Gap 7 mEq/L Low 8-16 Calcium Level 8.6 mg/dL Low 8.8-10.2 Ast/Sgot 28 U/L Normal 7-37 Alt/SGPT 40 U/L Normal 12-78 Alkaline Phosphatase 84 U/L Normal 45-117 Bilirubin,Total 0.5 mg/dL Normal 0.2-1.0 Total Protein 7.3 GM/DL Normal 6.4-8.2 Albumin 4.0 GM/DL Normal 3.2-5.2 Albumin/Globulin Ratio 1.2 Normal Laboratory test finding 09/06/2020 [facility] [address] [place] [address] [phone] C Reactive Protein Quantitativ 0.30 mg/dL Normal 0 .00-0.30 Antinuclear Antibodies 09/06/2020 [facility] [address] [place] [address] [phone] Antinuclear Antibodies Direct Negative Normal Ne gative Sjogren's Anti SS-A <0.2 AI Normal 0.0-0.9 Sjogren's Anti SS-B <0.2 AI Normal 0.0-0.9 Anti Double Strand Dna Nafisa 09/06/2020 [facility] Lab [address] [place] [address] [phone] Anti DS-Dna AB Negative Normal Negative 2 Laboratory test finding 09/06/2020 [facility] [address] [place] [address] [phone] Anti-U1 RN ENDOCRINOLOGY AB <20 units Normal <20 3 Anti Branch(Sm) AB <20 units Normal <20 4 1 Units are mL/min/1.73 m2 Chronic Kidney Disease Staging per NKF: Stage I & II GFR >=60 Normal to Mildly Decreased Stage III GFR 30-59 Moderately Decreased Stage IV GFR 15-29 Severely Decreased Stage V GFR <15 Very Little GFR Left ESRD GFR <15 on DOPING SUPERVISOR 2 Performed at: RN - [facility] [address] [id number] [employer]: Joanna Bear MD, Phone: [phone] Performed at: [facility] [employer] [address] [facility], [facility], [place] [id number] [employer]: Matthias Ponce MD, Phone: [phone] Performed at: - [facility] [address] [place], [place] [id number] [address] [employer]: Nii Blackman MD, Phone: [phone] Negative: <20 Weak Positive: 20 - 39 Moderate Positive: 40 - 80 Strong Positive: >80 4 Negative: <20 Weak Positive: 20 - 39 Moderate Positive: 40 - 80 Strong Positive: >80 Procedures Date Code Description Status 01/15/2021 42188 Office/Outpatient Established Mo d MDM 30-39 Min Completed 01/15/2021 55584 Spirometry Completed 08/10/2020 15854 Office/Outpatient Established Mo d MDM 30-39 Min Completed 07/27/2020 00571 [facility] Me asurement Heart Rate, Oximetry Completed Medical Devices Description No Information Available Encounters Type Date Location Provider Dx Diagnosis Office Visit 01/15/2021 2:30p [facility] Pulmonary/Thoracic Janae Nash M.D. M30.1 Polyarteritis with lung invo lvement [Churg-Marialuisa] J47.9 Bronchiectasis, uncomplicate d J84.10 Pulmonary fibrosis, unspecif ied R91.8 Other nonspecific abnormal f inding of lung field Office Visit 08/10/2020 2:30p [facility] Janae Nash M.D. J84.10 Pulmonary fibrosis, unspecif ied J47.9 Bronchiectasis, uncomplicate d M30.1 Polyarteritis with lung invo lvement [Churg-Marialuisa] R91.8 Other nonspecific abnormal f inding of lung field Assessments Date Code Description Provider 01/15/2021 M30.1 Polyarteritis with lung involvem ent [Churg-Marialuisa] Janae Kolb M.D. 01/15/2021 J47.9 Bronchiectasis, uncomplicated Janae Zuniga M.D. 01/15/2021 J84.10 Pulmonary fibrosis, unspecified Janae Kolb M.D. 01/15/2021 R91.8 Other nonspecific abnormal findi ng of lung field Janae Kolb M.D. 12/12/2020 Z12.11 Encounter for screening for loly gnant neoplasm of colon Kinjal Monsalve, RPA-C 12/12/2020 K59.00 Constipation, unspecified Meliss payton Monsalve, RPA-C 08/10/2020 J84.10 Pulmonary fibrosis, unspecified Janae Kolb M.D. 08/10/2020 J47.9 Bronchiectasis, uncomplicated Janae Zuniga M.D. 08/10/2020 M30.1 Polyarteritis with lung involvem ent [Churg-Marialuisa] Jnaae Kolb M.D. 08/10/2020 R91.8 Other nonspecific abnormal findi ng of lung field Janae Kolb M.D. 07/27/2020 J84.10 Pulmonary fibrosis, unspecified Pulmonary Lab Plan of Treatment Future Appointment(s):* 06/18/2021 3:00 pm - Janae Kolb M.D. at [facility] Pulmonary/Thoracic * 06/18/2021 2:00 pm - Pulmonary Lab at [facility] Pulmonary/Thoracic * 02/02/2021 12:55 pm - Shaka Ortega M.D. 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 [Churg-Marialuisa] * J47.9 Bronchiectasis, uncomplicated * J84.10 Pulmonary fibrosis, unspecified * R91.8 Other nonspecific abnormal finding of lung field * * New Medication:* Azelastine HCL (Nasal) 0.15 % * New Labs:* PFT W/HGB On Meds, Scheduled: 06/18/21 * New Xrays:* CT Chest W/O Contrast, Ordered: 01/15/21 * Follow up:* CT chest and PFT in 4-5 mo with follow-up afterwards Functional Status Functional Condition Comment Date Status Independent with all ADL's Activ e Independent with all IADL's Acti ve Mental Status Mental Condition Comment Date Status Cognitive ability not impaired A ctive Referrals Refer to Reason for Referral Status Appt Date Shaka Ortega M.D. COLO SCREENING Scheduled 12/01 [facility]- [address] [facility], [address] [place] [address] [phone]
--- OUTSIDE RECORDS SUMMARY | 2021-02-02 07:45 | CCD ---
Author Author [facility] Organization [facility] Address Unknown Phone Unavailable Care Team Providers Care Launch Leader Name Role Phone Jojo Alvarado Unavailable PROBLEMS Type Condition ICD9-CM Code [id number] Code Onset Dates Condition S tatus W/U Status Risk SNOMED Code Notes Problem Erectile dysfunction following radical prostatectomy N52.31 Active confirmed 353792327 Problem Personal history of malignant neoplasm of prostate Z85.46 Active confirmed 069071077 Problem 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lopathy, lumbosacral region M47.817 Active confirmed 54217538 Problem Other chronic pain G89.29 Active confirmed 8 5297434 Problem 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 lopathy, cervicothoracic region M47.813 Active confirmed 42608041 Problem 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lopathy, lumbar region M47.816 Active confirmed 221949270 Problem Hypertriglyceridemia E78.1 Active confirmed 477044218 Problem Essential hypertension I10 Active confirmed 39166029 Problem Vitamin D deficiency E55.9 Active confirmed 56993223 Problem Dry eyes H04.123 Active confirmed 203511419 Problem Diabetes mellitus without complication E11.9 A ctive confirmed 964113926 Problem Spinal enthesopathy, sacral and sacrococcygeal region M46.08 Active confirmed 59795584 Problem 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lopathy, cervical region M47.812 Active confirmed 106255759 Problem 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 Active confirmed 39074043 Problem Osteoarthritis involving multiple joints on both sides of body M15.9 Active confirmed 024870116 Problem Gastroesophageal reflux dise ase, unspecified whether esophagitis present K21.9 Active confirmed 349990996 Problem Bilateral renal stones N20.0 Active confirmed 01307292 ALLERGIES No Known Allergies ENCOUNTERS from 1945 to 2021-01-18 Encounter Location Date Provider Diagnosis [facility] Miquel Belcher[address] [facility] [phone] [place] [address] Jan, Jojo Alvarado Essential hypertension I10 IMMUNIZATIONS Vaccine Route Administration Date Status COVID-19 dose #2 given elsewhere Unspecified Unknown Jun Administered COVID-19 dose #1 given elsewhere Unspecified Unknown May ch 2020 Administered Influenza (High Dose 65 & up) [...] 300 MG 1 tablet Orally tid for 90 days Jan, Active Albuterol Sulfate (2.5 MG/3ML) 0.083% 3 ml as needed Inhalation twi ce a day Active Nucala 100 MG/ML as directed 300mg Subcutaneous monthly Active PROCEDURES No Information RESULTS No Results REASON FOR VISIT amlodipine MEDICAL (GENERAL) HISTORY Type Description Date Medical History Prostate CA, [id number], Gleas on 7 (3+4) - S/P Prostatectomy - [facility] Urology Medical History Osteoarthritis of spine Medical [...] Treatment Notes Treatm ent Clinical Notes Jan, Essential hypertension (ICD-10 - I10) PLAN OF TREATMENT Medication Medication Name Sig Start Date Stop Date amLODIPine Besylate 10 MG 1 tablet Orally Once a day for 90 days Gabapentin 300 MG 1 tablet Orally tid for 90 days Jan, Next Appt Details Provider Name:Jojo Alvarado, 2021-04-23 02:30:00 PM, [address] [facility], , [place], [address], Provider Name:Dafne Freeman, 2021-07- 2 01:30:00 PM, [address], , [place], [address], Insurance Providers Payer Name Payer Address Payer Phone Insured Name Patient Relati onship to Insured Coverage Start Date Coverage End Date MEDICARE COMPLETE [employer] [address] [address] [facility] [id number] OWEN PHILLIPS self
--- OUTSIDE RECORDS SUMMARY | 2021-02-02 07:46 | CCD | Continuity of Care Document ---
Author Organization Unknown Address Unknown Phone Unavailable Care Team Providers Care Interactive Graphic Designer Name Role Phone Nabeel Salguero M.D. AUTM Santosh Duran M.D. AUTM [phone] AUTM Unavailable Jojo Alvarado M.D. AUTM [phone] Problems Active Problems Provider Date Idiopathic pulmonary [...] 11, quit age 23 Smoking Status Reviewed: 08/10/20 Patient is a former smoker hx : 1/2ppd since age 11, quit age 23 Allergies, Adverse Reactions, Alerts Description No Known Drug Allergies Medications Active Medications SIG Qnty Indications Ordering Provide r Date Sodium Chloride 3% Nebulizer 1 vial (3ml) nebulzied 2-3 times a day as needed 750ml J47.9 Brenda Duran M.D. 05/11/2020 Fluticasone Propionate/Salmeterol Diskus 100-50mcg/Dose Aerosol 1 puff twice a day 60units Binu Duran M.D. 04/06/2020 Nucala 100mg Solution Rec 300mg subcutaneous every four weeks 3units Ashlie raza M.D. 08/04/2018 Albuterol Sulfate (2 .5mg/3ML) 0.083% Nebulizer 1 vial via neb twice a day and every 4 hours as needed dx: j47.9 360ml Janae Duran M.D. 10/09/2017 Lisinopril 20mg Tablets 1 by mouth every day 30tabs Unknown Januvia 50mg Tablets 1 by mouth every day Unknown Acapella Misc G reen use as directed twice a day after nebulized Albuterol dx: J47.9 Unkno wn Omeprazole 40mg Capsules DR 1 by mouth every day Unknown Gemfibrozil 600mg Tablets 1 tab once daily Lacy Benitez, NikolasNMichele 000 Oxybutynin Chloride ER 10mg Tablets ER 24HR 1 tab once daily Unknown Gabapentin 100mg Capsules 2 tabs twice daily Unknown Medications Administered in Office Medication SIG Qnty Indications Ordering Provider Date Covid-19 vaccine, Unspecified Inj ection Unknown 06/11/2020 Covid-19 vaccine, Unspecified Inj ection Unknown 05/21/2020 Immunizations Description No Information Available Vital Signs Date Vital Result Comment 08/10/2020 2:33pm BP Systolic 132 mmHg BP Diastolic 76 mmHg Heart Rate 82 /min O2 % BldC Oximetry 97 % Height 70 inches 5'10" Weight 247.38 lb BMI (Body Mass Index) 35.5 kg/m2 [place] Body Weight 166 lb Weight 112.209 kg BSA (Body Surface Area) 2.28 m2 05/11/2020 3:28pm BP Systolic 118 mmHg BP Diastolic 72 mmHg Heart Rate 67 /min O2 % BldC Oximetry 98 % Body Temperature 96.5 F Height 70 inches 5'10" Weight 235.50 lb BMI (Body Mass Index) 33.8 kg/m2 [place] Body Weight 166 lb Weight 106.823 kg BSA (Body Surface Area) 2.24 m2 Results Test Acquired Date Facility Test Result H/L Range Note CBC With Differential 09/06/2020 [facility] [address] [place] [address] [phone] White Blood Count 7.1 10 Normal 4.0-10.0 [...] 36.0-66.0 Lymph % 22.8 % Low 24.0-44.0 [place] % 11.5 % High 2.0-8.0 Eos % 1.7 % Normal 0.0-3.0 Baso % 0.8 % Normal 0.0-1.0 Immature Granulocyte % 0.4 % Normal 0-3.0 Nucleated Red Blood Cell % 0.0 % Normal 0-0 Neutrophils # 4.5 10 Normal 1.5-8.5 Lymph # 1.6 10 Normal 1.5-5.0 [place] # 0.8 10 Normal 0.0-0.8 Eos # 0.1 10 Normal 0.0-0.5 Baso # 0.1 10 Normal 0.0-0.2 Comprehensive Metabolic Profil 09/06/2020 [facility] [address] [place], [place] [id number] [phone] Glucose, Fasting 119 mg/dL High 70-100 Blood [...] Ratio 1.2 Normal Laboratory test finding 09/06/2020 [facility] Main Lab [address] [place] [address] [phone] C Reactive Protein Quantitativ 0.30 mg/dL Normal 0 .00-0.30 Antinuclear Antibodies 09/06/2020 [facility] Lab [address] [place] [address] [phone] Antinuclear Antibodies Direct Negative Normal Ne gative Sjogren's Anti SS-A <0.2 AI Normal 0.0-0.9 Sjogren's Anti SS-B <0.2 AI Normal 0.0-0.9 Anti Double Strand Dna Nafisa 09/06/2020 [facility] Main Lab [address] [place] [address] [phone] Anti DS-Dna AB Negative Normal Negative 2 Laboratory test finding 09/06/2020 [facility] Main Lab [address] [place] [address] [phone] Anti-U1 DIGITAL ANALYST AB <20 units Normal <20 3 Anti Branch(Sm) AB <20 units Normal <20 4 1 Units are mL/min/1.73 m2 Chronic Kidney Disease Staging per NKF: Stage I & II GFR >=60 Normal to Mildly Decreased Stage III GFR 30-59 Moderately Decreased Stage IV GFR 15-29 Severely Decreased Stage V GFR <15 Very Little GFR Left ESRD GFR <15 on JET DYEING MACHINE OPERATOR 2 Performed at: RN - [facility] [address] [id number] Machine Hand: Joanna Bear MD, Phone: [phone] Performed at: [facility] [employer] [address] [facility], [facility], [facility] [id number] Machine Hand: Matthias Ponce MD, Phone: [phone] Performed at: - [facility] [address] [id number] Machine Hand: Nii Blackman MD, Phone: [phone] 3 Negative: <20 Weak Positive: 20 - 39 Moderate Positive: 40 - 80 Strong Positive: >80 4 Negative: <20 Weak Positive: 20 - 39 Moderate Positive: 40 - 80 Strong Positive: >80 Procedures Date Code Description Status 08/10/2020 20040 Office/Outpatient Established Mo d MDM 30-39 Min Completed 07/27/2020 02762 Pulmonary Stress [facility] Or asurement Heart Rate, Oximetry Completed Medical Devices Description No Information Available Encounters Type Date Location Provider Dx Diagnosis Office Visit 08/10/2020 2:30p [facility] K Janae davis M.D. 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 08/10/2020 J47.9 Bronchiectasis, uncomplicated Janae Zuniga M.D. 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 08/10/2020 R91.8 Other nonspecific abnormal findi ng of lung field Janae Duran M.D. 07/27/2020 J84.10 Pulmonary fibrosis, unspecified Pulmonary Lab Plan of Treatment Future Appointment(s):* 12/12/2020 1:45 pm - CANDE Tovar at [facility] * 01/15/2021 2:30 pm - Janae Duran M.D. 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 Albuterol with hypertonic saline in nebulizer one to two times a day (try for two times a day). 2. Acapella device after using nebulizer twice a day 3. Percussion vest to be worn during nebulizer treatment (twice a day if possible) 5. Cont with Advair inhaler twice a day (rinse, gargle and spit afterwards) Follow-up in 5-6 mo with spirometry Functional Status Functional Condition Comment Date Status Independent with all ADL's Activ e Independent with all IADL's Acti ve Mental Status Mental Condition Comment Date Status Cognitive ability not impaired A ctive Referrals Refer to Reason for Referral Status Appt Date Shaka Ortega M.D. COLO SCREENING Scheduled 12/01 [facility]- [address] [facility], [address] [place] [address] [phone]
--- OUTSIDE RECORDS SUMMARY | 2021-02-02 07:46 | CCD ---
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 Active confirmed 769607954 Problem 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lopathy, lumbar region M47.816 Active confirmed 331534516 Problem 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lopathy, lumbosacral region M47.817 Active confirmed 39039083 Problem Diabetes mellitus without complication E11.9 A ctive confirmed 406959924 Problem Hypertriglyceridemia E78.1 Active confirmed 253849376 Problem Essential hypertension I10 Active confirmed 63651178 Problem Bilateral renal stones N20.0 Active confirmed 02103319 Problem 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lopathy, cervical region M47.812 Active confirmed 713846329 Problem Dry eyes H04.123 Active confirmed 759464953 Problem 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 lopathy, cervicothoracic region M47.813 Active confirmed 10606174 Problem Vitamin D deficiency E55.9 Active confirmed 24772065 Problem 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 Active confirmed 31228353 Problem Osteoarthritis involving multiple joints on both sides of body M15.9 Active confirmed 132630351 Problem Gastroesophageal reflux dise ase, unspecified whether esophagitis present K21.9 Active confirmed 446019605 ALLERGIES No Known Allergies ENCOUNTERS from 1945 to 2020-11-30 Encounter Location Date Provider Diagnosis [facility] Miquel Belcher[address] [facility] [phone] [place] [address] Nov, Yaneli Monsivais Cough R05 ; Acute non-recurr ent pansinusitis J01.40 and Acute bacterial conjunctivitis of both eyes H10.33 IMMUNIZATIONS Vaccine Route Administration Date Status COVID-19 [...] REASON FOR REFERRAL No Information VITAL SIGNS Weight 249 lbs Nov, Weight-kg 112.95 kg Nov, Height 72 in Nov, BMI 33.77 kg/m2 Nov, Heart Rate 79 /min Nov, Respiratory Rate 18 /min Nov, Temperature 98.1 degrees Fahrenheit Nov, Oximetry 95 Nov, Blood pressure systolic 102 mm Hg Nov, Blood pressure diastolic 60 mm Hg Nov, MEDICATIONS Medication SIG (Take, Route, Frequency, Duration) Notes Start Da te End Date Status Aspirin EC 81 MG 1 tablet Orally Once a day for 90 day(s) Oct, Active Ibuprofen 800 MG 1 tablet with food or milk as needed Ora lly Three times a day Oct, Active Acetaminophen 650 mg 1 tablet as needed Orally every 6 hrs Active Omeprazole 40 MG 1 capsule Orally Once a day Active Sodium Chloride 3 % 4 ml Inhalation Twice a day UNKOWN Active Pravastatin 40 40mg 1 tab(s) oral daily for 90 days Active Albuterol Sulfate (2.5 MG/3ML) 0.083% 3 ml as needed Inhalation twi ce a day Active Lisinopril 20 MG 1 tablet Orally twice a day for 90 days Active Doxycycline Hyclate 100 MG 1 tablet Orally bid for 10 day(s) Nov, Active Ciprofloxacin HCl 0.3 % 2 drops in bothe eyes Ophthalmic tid for 10 days Nov, Active Vitamin B12 1000 MCG 1 tablet Orally Once a day for 90 day(s) Aug, Active Nucala 100 MG/ML as directed 300mg Subcutaneous monthly Active Vitamin D3 25 MCG (1000 UT) 1 tablet Orally Once a day Not-Taking Fluticasone-Salmeterol 100-50 MCG/DOSE 1 puff Inhalation Twice a day Active amLODIPine Besylate 10 MG 1 tablet Orally Once a day Active Gabapentin 300 MG 1 tablet Orally tid Jan, Active PROCEDURES No Information RESULTS Component Value Reference Range KOMAL COVID AG (Point of Care) Reviewed date:11/30/2020 15:57:05 Interpretation: Performing Lab:[facility], [facility] INTERFACE [address] [place], [place] [id number] , ,[place] [address] KOMAL COVID ANTIGEN NEGATIVE NEGATIVE REASON FOR VISIT SOB, cough-door D MEDICAL (GENERAL) HISTORY Type Description Date Medical History Prostate CA, [id number], Gleas on 7 (3+4) - S/P Prostatectomy - [facility] Urology Medical History Osteoarthritis of spine Medical [...] Duran Medical History Former smoker, quit in 1970 Surgical History B/L Cataract Surgery 2012 Surgical [...] Notes Treatment Notes Treatm ent Clinical Notes Nov, Cough (ICD-10 - R05) History of pulmonary fibrosis, has inhalers at home as well as a nebulizer will use if necessary, pulmonary notes reviewed Nov, Acute non-recurrent pansinusitis (ICD-10 - J01.4 0) Plan of care discussed with patient, will start doxycycline discussed risk and benefits of meds with patient Nov, Acute bacterial conjunctivitis of both eyes (ICD -10 - H10.33) Will treat with eyedrops, discussed with patient cleansing eyes with baby shampoo and water every morning in the shower, and at night before he goes to bed before using the drops PLAN OF TREATMENT Medication Medication Name Sig Start Date Stop Date Doxycycline Hyclate 100 MG 1 tablet Orally bid for 10 day(s) Nov, Ciprofloxacin HCl 0.3 % 2 drops in bothe eyes Ophthalmic tid for 10 days Nov, Treatment Notes Assessment Notes Clinical Notes Cough History of pulmonary fibrosis, has inhalers at home as well as a nebulizer will use if necessary, pulmonary notes reviewed Acute non-recurrent pansinusitis Plan of care discussed with patient, will start doxycycline discussed risk and benefits of meds with patient Acute bacterial conjunctivitis of both eyes Will treat with eyedrops, discussed with patient cleansing eyes with baby shampoo and water every morning in the shower, and at night before he goes to bed before using the drops Next Appt Details Dr. Alvarado as scheduled 04/23/21 Reason: Provider Name:Boo Morales, 2020-12-28 02:15:00 PM, [address] [facility] 3rd Floor, , [place], [address], Provider Name:Jojo Alvarado, 2021-04-23 02:30:00 PM, [address] [facility], , [place], [address], Provider Name:Dafne Freeman, 2021-07-0 2 01:30:00 PM, [address] [facility], , [place], [address], Insurance Providers Payer Name Payer Address Payer Phone Insured Name Patient Relati onship to Insured Coverage Start Date Coverage End Date MEDICARE COMPLETE [employer] [address] [address] [facility] [id number] OWEN PHILLIPS self
--- OUTSIDE RECORDS SUMMARY | 2021-02-02 07:46 | CCD | Continuity of Care Document ---
Author Author Brad KOLB M.D. Organization Unknown Address [address] [place] [address] Phone [phone] Care Team Providers Care Junior Software Engineer Name Role Phone Nabeel Salguero M.D. AUTM Santosh Duran M.D. AUTM [phone] AUTM Unavailable Jojo Alvarado M.D. AUTM [phone] Problems Active Problems Provider Date Idiopathic pulmonary [...] and every 4 hours as needed dx: tj47.9 360ml Janae Kolb M.D. 10/09/2017 Flonase Allergy [...] Dose 81mg Tablets DR Daily Unknown Acapella Shani valle use as directed twice a day after [...] lb BMI (Body Mass Index) 35.9 kg/m2 [place] Body Weight 166 lb Weight 113.400 kg BSA (Body Surface Area) 2.29 m2 12/12/2020 2:21pm BP Systolic 136 mmHg BP Diastolic 64 mmHg Height 70 inches 5'10" Weight 252.00 lb BMI (Body Mass Index) 36.2 kg/m2 [place] Body Weight 166 lb Weight 114.307 kg BSA (Body Surface Area) 2.30 m2 Results Test Acquired Date Facility Test Result H/L Range Note FVL/Hari 01/15/2021 [facility] SEE IMAGE FVC-Pred 4.15 L FVC-Pre 3.02 L FVC-%Pred-Pre 72 L FVC-LLN 3.22 L Fev1-Pred 2.99 L Fev1-Pre 2.53 L Fev1-%Pred-Pre 84 L Fev1-LLN 2.20 L Fev6-Pred 3.89 L Fev6-Pre 3.02 L Fev6-%Pred-Pre 77 L Fev6-LLN 2.98 L Tsq2oir-Rhjg 72 % Fcl3fcj-Syl 84 % Pqr6lit-%Pred-Pre 115 % Zjt7opx-JWL 62 % Lav3qoh-Hdib 94 % Oaf6lwi-Exr 100 % Jcv3vtr-%Pred-Pre 106 % FEFMax-Pred 7.60 L/E/sec FEFMax-Pre 5.00 L/E/sec FEFMax-%Pred-Pre 65 L/E/sec FEFMax-LLN 5.28 L/E/sec Czy6138-Msac 2.12 L/E/sec Ffg0575-Ihs 3.38 L/E/sec Vwy9776-%Pred-Pre 158 L/E/sec Boc6746-JER 0.52 L/E/sec ExpTime-Pre 5.70 sec Gby3flj2-Prfo 77 % Puq7hkb7-Kzy 84 % Dvx8xgn0-%Pred-Pre 109 % Tqr7qig6-ZRF 68 % CBC With Differential 09/06/2020 [facility] Main Lab [address] [place] [address] [phone] White Blood Count 7.1 10 Normal 4.0-10.0 [...] 36.0-66.0 Lymph % 22.8 % Low 24.0-44.0 [place] % 11.5 % High 2.0-8.0 Eos % 1.7 % Normal 0.0-3.0 Baso % 0.8 % Normal 0.0-1.0 Immature Granulocyte % 0.4 % Normal 0-3.0 Nucleated Red Blood Cell % 0.0 % Normal 0-0 Neutrophils # 4.5 10 Normal 1.5-8.5 Lymph # 1.6 10 Normal 1.5-5.0 [place] # 0.8 10 Normal 0.0-0.8 Eos # 0.1 10 Normal 0.0-0.5 Baso # 0.1 10 Normal 0.0-0.2 Comprehensive Metabolic Profil 09/06/2020 [facility] [address] [place] [address] [phone] Glucose, Fasting 119 mg/dL High 70-100 Blood [...] Ratio 1.2 Normal Laboratory test finding 09/06/2020 [facility] Main Lab [address] [place] [address] [phone] C Reactive Protein Quantitativ 0.30 mg/dL Normal 0 .00-0.30 Antinuclear Antibodies 09/06/2020 [facility] Lab [address] [place] [address] [phone] Antinuclear Antibodies Direct Negative Normal Ne gative Sjogren's Anti SS-A <0.2 AI Normal 0.0-0.9 Sjogren's Anti SS-B <0.2 AI Normal 0.0-0.9 Anti Double Strand Dna Nafisa 09/06/2020 [facility] Main Lab [address] [place] [address] [phone] Anti DS-Dna AB Negative Normal Negative 2 Laboratory test finding 09/06/2020 [facility] Main Lab [address] [place] [address] [phone] Anti-U1 ELECTRONIC PARTS DESIGNER AB <20 units Normal <20 3 Anti Branch(Sm) AB <20 units Normal <20 4 1 Units are mL/min/1.73 m2 Chronic Kidney Disease Staging per NKF: Stage I & II GFR >=60 Normal to Mildly Decreased Stage III GFR 30-59 Moderately Decreased Stage IV GFR 15-29 Severely Decreased Stage V GFR <15 Very Little GFR Left ESRD GFR <15 on WAITER/WAITRESS TOURIST CLASS 2 Performed at: - [facility] [address] [id number] Asphalt Layer: Joanna Bear MD, Phone: [phone] Performed at: [facility] [employer] [address] [place] [address], [facility] [id number] Asphalt Layer: Matthias Ponce MD, Phone: [phone] Performed at: - [facility] [address] [id number] Asphalt Layer: Nii Blackman MD, Phone: [phone] 3 Negative: <20 Weak Positive: 20 - 39 Moderate Positive: 40 - 80 Strong Positive: >80 4 Negative: <20 Weak Positive: 20 - 39 Moderate Positive: 40 - 80 Strong Positive: >80 Procedures Date Code Description Status 08/10/2020 37543 Office/Outpatient Established Mo d MDM 30-39 Min Completed 07/27/2020 57996 [facility]monary [facility] Va asurement Heart Rate, Oximetry Completed Medical Devices Description No Information Available Encounters Type Date Location Provider Dx Diagnosis Office Visit 08/10/2020 2:30p [facility] K Janae davis M.D. J84.10 Pulmonary [...] for loly gnant neoplasm of colon Kinjal A Gricel, RPA-C 12/12/2020 K59.00 Constipation, unspecified Meliss a A Gricel, RPA-C 08/10/2020 J84.10 Pulmonary fibrosis, unspecified Janae Kolb M.D. 08/10/2020 J47.9 Bronchiectasis, uncomplicated Janae Zuniga M.D. 08/10/2020 M30.1 Polyarteritis with lung involvem ent [Churg-Marialuisa] Janae Kolb M.D. 08/10/2020 R91.8 Other nonspecific abnormal findi ng of lung field Janae Kolb M.D. 07/27/2020 J84.10 Pulmonary fibrosis, unspecified Pulmonary Lab Plan of Treatment Future Appointment(s):* 06/18/2021 3:00 pm - Janae Kolb M.D. at [facility] * 06/18/2021 2:00 pm - Pulmonary Lab at [facility] * 02/02/2021 12:55 pm - Shaka Ortega M.D. at [facility] 01/15/2021 - Janae Kolb M.D.* [...] not impaired A ctive Referrals Refer to Dr Reason for Referral Status Appt Date Shaka Ortega M.D. COLO SCREENING Scheduled 12/01 [facility]- [address] [facility], [address] [place] [address] [phone]
--- OUTSIDE RECORDS SUMMARY | 2021-02-02 07:46 | CCD | Continuity of Care Document ---
Author Author Brad KOLB M.D. Organization Unknown Address [address] [place] [address] Phone [phone] Care Team Providers Care Senior Administrator Support Name Role Phone Nabeel Salguero M.D. AUTM Santosh Duran M.D. AUTM [phone] AUTM Unavailable Jojo Alvarado M.D. AUTM [phone] Problems Active Problems Provider Date Idiopathic pulmonary [...] lb BMI (Body Mass Index) 35.9 kg/m2 [place] Body Weight 166 lb Weight 113.400 kg BSA (Body Surface Area) 2.29 m2 12/12/2020 2:21pm BP Systolic 136 mmHg BP Diastolic 64 mmHg Height 70 inches 5'10" Weight 252.00 lb BMI (Body Mass Index) 36.2 kg/m2 [place] Body Weight 166 lb Weight 114.307 kg [...] L Fev6-%Pred-Pre 77 L Fev6-LLN 2.98 L Wby6exr-Luyt 72 % Jaz9wkx-Gcr 84 % Hxr6eaq-%Pred-Pre 115 % Lsr6hnm-IAM 62 % Elx2ljp-Lfyv 94 % Ani9vpp-Ibq 100 % Fym0dlh-%Pred-Pre 106 % FEFMax-Pred 7.60 L/E/sec FEFMax-Pre 5.00 L/E/sec FEFMax-%Pred-Pre 65 L/E/sec FEFMax-LLN 5.28 L/E/sec Nwq1764-Mfwb 2.12 L/E/sec Pbb1518-Myl 3.38 L/E/sec Pls0589-%Pred-Pre 158 L/E/sec Sse0262-RGJ 0.52 L/E/sec ExpTime-Pre 5.70 sec Oxz6wmk6-Gsxu 77 % Dus8mnm3-Gqp 84 % Oyv2kdr6-%Pred-Pre 109 % Mez6msu5-OXN 68 % CBC With Differential 09/06/2020 [facility] Main Lab [address] [place] [address] [phone] White Blood Count 7.1 10 Normal 4.0-10.0 [...] 36.0-66.0 Lymph % 22.8 % Low 24.0-44.0 [place] % 11.5 % High 2.0-8.0 Eos % 1.7 % Normal 0.0-3.0 Baso % 0.8 % Normal 0.0-1.0 Immature Granulocyte % 0.4 % Normal 0-3.0 Nucleated Red Blood Cell % 0.0 % Normal 0-0 Neutrophils # 4.5 10 Normal 1.5-8.5 Lymph # 1.6 10 Normal 1.5-5.0 [place] # 0.8 10 Normal 0.0-0.8 Eos # 0.1 10 Normal 0.0-0.5 Baso # 0.1 10 Normal 0.0-0.2 Comprehensive Metabolic Profil 09/06/2020 [facility] Lab [address] [place] [address] [phone] Glucose, Fasting 119 mg/dL High 70-100 Blood [...] Ratio 1.2 Normal Laboratory test finding 09/06/2020 [facility] Main Lab [address] [place] [address] [phone] C Reactive Protein Quantitativ 0.30 mg/dL Normal 0 .00-0.30 Antinuclear Antibodies 09/06/2020 [facility] Main Lab [address] [place] [address] [phone] Antinuclear Antibodies Direct Negative Normal Ne gative Sjogren's Anti SS-A <0.2 AI Normal 0.0-0.9 Sjogren's Anti SS-B <0.2 AI Normal 0.0-0.9 Anti Double Strand Dna Nafisa 09/06/2020 [facility] Main Lab [address] [place] [address] [phone] Anti DS-Dna AB Negative Normal Negative 2 Laboratory test finding 09/06/2020 [facility] Main Lab [address] [place] [address] [phone] Anti-U1 RESEARCH TEST ENGINE OPERATOR AB <20 units Normal <20 3 Anti Branch(Sm) AB <20 units Normal <20 4 1 Units are mL/min/1.73 m2 Chronic Kidney Disease Staging per NKF: Stage I & II GFR >=60 Normal to Mildly Decreased Stage III GFR 30-59 Moderately Decreased Stage IV GFR 15-29 Severely Decreased Stage V GFR <15 Very Little GFR Left ESRD GFR <15 on MICROGRINDER OPERATOR 2 Performed at: - [facility] [address] [id number] Sports Physical Therapist: Joanna Bear MD, Phone: [phone] Performed at: [facility] [employer] [address] [place] [address], [facility] [id number] Sports Physical Therapist: Matthias Ponce MD, Phone: [phone] Performed at: - [facility] [address] [id number] Sports Physical Therapist: Nii Blackman MD, Phone: [phone] 3 Negative: <20 Weak Positive: 20 - 39 Moderate Positive: 40 - 80 Strong Positive: >80 4 Negative: <20 Weak Positive: 20 - 39 Moderate Positive: 40 - 80 Strong Positive: >80 Procedures Date Code Description Status 08/10/2020 09590 Office/Outpatient Established Mo d MDM 30-39 Min Completed 07/27/2020 05192 Pulmonary Stress [facility] Ut asurement Heart Rate, Oximetry Completed Medical Devices Description No Information Available Encounters Type Date Location Provider Dx Diagnosis Office Visit 08/10/2020 2:30p [facility] K Janae davis M.D. J84.10 Pulmonary [...] 3:00 pm - Janae Kolb M.D. at [facility] * 06/18/2021 2:00 pm - Pulmonary Lab at [facility] * 02/02/2021 12:55 pm - Shaka Ortega M.D. at [facility] 01/15/2021 - Janae Kolb M.D.* [...] Shaka Ortega M.D. COLO SCREENING Scheduled 12/01 [facility]- [address] [facility], [address] [place] [address] [phone]
--- OUTSIDE RECORDS SUMMARY | 2021-02-02 07:46 | CCD | Continuity of Care Document ---
Author Author Brad KOLB M.D. Organization Unknown Address [address] [place] [address] Phone [phone] Care Team Providers Care Children Librarian Name Role Phone Nabeel Salguero M.D. AUTM [phone] Santosh Duran M.D. AUTM [phone] AUTM Unavailable Jojo Alvarado M.D. AUTM [phone] Problems Active Problems Provider Date Idiopathic pulmonary [...] lb BMI (Body Mass Index) 35.9 kg/m2 [place] Body Weight 166 lb Weight 113.400 kg BSA (Body Surface Area) 2.29 m2 12/12/2020 2:21pm BP Systolic 136 mmHg BP Diastolic 64 mmHg Height 70 inches 5'10" Weight 252.00 lb BMI (Body Mass Index) 36.2 kg/m2 [place] Body Weight 166 lb Weight 114.307 kg [...] L Fev6-%Pred-Pre 77 L Fev6-LLN 2.98 L Fla0whg-Objb 72 % Qbr2lkn-Fqv 84 % Rbp0hyi-%Pred-Pre 115 % Ftg7zna-RMX 62 % Jme3ozc-Vnou 94 % Lmu7dam-Qzm 100 % Ief0yel-%Pred-Pre 106 % FEFMax-Pred 7.60 L/E/sec FEFMax-Pre 5.00 L/E/sec FEFMax-%Pred-Pre 65 L/E/sec FEFMax-LLN 5.28 L/E/sec Nnn8170-Khix 2.12 L/E/sec Ywm0113-Eoh 3.38 L/E/sec Eol6267-%Pred-Pre 158 L/E/sec Ckh7131-CPJ 0.52 L/E/sec ExpTime-Pre 5.70 sec Oeg1wvm0-Kdoy 77 % Ake1zvo4-Wob 84 % Dhh5olk7-%Pred-Pre 109 % Rbt1jvq3-KZZ 68 % CBC With Differential 09/06/2020 [facility] Main Lab [address] [place] [address] [phone] White Blood Count 7.1 10 Normal 4.0-10.0 [...] 36.0-66.0 Lymph % 22.8 % Low 24.0-44.0 [place] % 11.5 % High 2.0-8.0 Eos % 1.7 % Normal 0.0-3.0 Baso % 0.8 % Normal 0.0-1.0 Immature Granulocyte % 0.4 % Normal 0-3.0 Nucleated Red Blood Cell % 0.0 % Normal 0-0 Neutrophils # 4.5 10 Normal 1.5-8.5 Lymph # 1.6 10 Normal 1.5-5.0 [place] # 0.8 10 Normal 0.0-0.8 Eos # 0.1 10 Normal 0.0-0.5 Baso # 0.1 10 Normal 0.0-0.2 Comprehensive Metabolic Profil 09/06/2020 [facility] Main Lab [address] [place] [address] [phone] Glucose, Fasting 119 mg/dL High 70-100 Blood [...] Ratio 1.2 Normal Laboratory test finding 09/06/2020 [facility] Main Lab [address] [place] [address] [phone] C Reactive Protein Quantitativ 0.30 mg/dL Normal 0 .00-0.30 Antinuclear Antibodies 09/06/2020 [facility] Main Lab [address] [place] [address] [phone] Antinuclear Antibodies Direct Negative Normal Ne gative Sjogren's Anti SS-A <0.2 AI Normal 0.0-0.9 Sjogren's Anti SS-B <0.2 AI Normal 0.0-0.9 Anti Double Strand Dna Nafisa 09/06/2020 [facility] Main Lab [address] [place] [address] [phone] Anti DS-Dna AB Negative Normal Negative 2 Laboratory test finding 09/06/2020 [facility] Main Lab [address] [place] [address] [phone] Anti-U1 SILVER MINER AB <20 units Normal <20 3 Anti Branch(Sm) AB <20 units Normal <20 4 1 Units are mL/min/1.73 m2 Chronic Kidney Disease Staging per NKF: Stage I & II GFR >=60 Normal to Mildly Decreased Stage III GFR 30-59 Moderately Decreased Stage IV GFR 15-29 Severely Decreased Stage V GFR <15 Very Little GFR Left ESRD GFR <15 on ACCOUNT EXECUTIVE AGRIBUSINESS 2 Performed at: - [facility] [address] [id number] Biodiesel Plant Manager: Joanna Bear MD, Phone: [phone] Performed at: [facility] [employer] [address] [place] [address], [facility] [id number] Biodiesel Plant Manager: Matthias Ponce MD, Phone: [phone] Performed at: - [facility] [address] [id number] Biodiesel Plant Manager: Nii Blackman MD, Phone: [phone] 3 Negative: <20 Weak Positive: 20 - 39 Moderate Positive: 40 - 80 Strong Positive: >80 4 Negative: <20 Weak Positive: 20 - 39 Moderate Positive: 40 - 80 Strong Positive: >80 Procedures Date Code Description Status 08/10/2020 82072 Office/Outpatient Established Mo d MDM 30-39 Min Completed 07/27/2020 54455 [facility] N[place] asurement Heart Rate, Oximetry Completed Medical Devices Description No Information Available Encounters Type Date Location Provider Dx Diagnosis Office Visit 08/10/2020 2:30p [facility] K Janae davis M.D. J84.10 Pulmonary [...] 3:00 pm - Janae Kolb M.D. at [facility] * 06/18/2021 2:00 pm - Pulmonary Lab at [facility] * 02/02/2021 12:55 pm - Shaka Ortega M.D. at [facility] 01/15/2021 - Janae Kolb M.D.* [...] Shaka Ortega M.D. COLO SCREENING Scheduled 12/01 [facility]- [address] [facility], [address] [place] [address] [phone]
--- OUTSIDE RECORDS SUMMARY | 2021-02-02 07:46 | CCD ---
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 Active confirmed 764818074 Problem 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lopathy, lumbar region M47.816 Active confirmed 673074116 Problem 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lopathy, lumbosacral region M47.817 Active confirmed 23111061 Problem Diabetes mellitus without complication E11.9 A ctive confirmed 317408518 Problem Hypertriglyceridemia E78.1 Active confirmed 903312172 Problem Essential hypertension I10 Active confirmed 16920577 Problem Bilateral renal stones N20.0 Active confirmed 90265108 Problem 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lopathy, cervical region M47.812 Active confirmed 603109423 Problem Dry eyes H04.123 Active confirmed 825926759 Problem 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 lopathy, cervicothoracic region M47.813 Active confirmed 32662924 Problem Vitamin D deficiency E55.9 Active confirmed 51823266 Problem 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 Active confirmed 82377279 Problem Osteoarthritis involving multiple joints on both sides of body M15.9 Active confirmed 334508479 Problem Gastroesophageal reflux dise ase, unspecified whether esophagitis present K21.9 Active confirmed 799378868 ALLERGIES No Known Allergies ENCOUNTERS from 1945 to 2020-11-30 Encounter [facility] Date [facility] [phone] [place] [address] Nov, Jojo Alvarado IMMUNIZATIONS Vaccine Route Administration Date Status COVID-19 [...] tid Jan, Active PROCEDURES No Information RESULTS No Results REASON FOR VISIT sinus issues MEDICAL (GENERAL) HISTORY Type Description Date Medical History Prostate CA, [id number], Gleas on 7 (3+4) - S/P Prostatectomy - [facility] Urology Medical History Osteoarthritis of spine [...] No Information FUNCTIONAL STATUS No Information ASSESSMENTS No Information PLAN OF TREATMENT Medication Medication Name Sig Start Date Stop Date Doxycycline Hyclate 100 MG 1 tablet Orally bid for 10 day(s) Nov, Ciprofloxacin HCl 0.3 % 2 drops in bothe eyes Ophthalmic tid for 10 days Nov, Next Appt Details Provider Name:Boo Morales, 2020-12-28 02:15:00 PM, [address], , [place], [address], Provider Name:Jojo Alvarado, 2021-04-23 02:30:00 PM, [address] [facility], , [place], [address], Provider Name:Dafne Freeman, 2 01:30:00 PM, [address], , [place], [address], Insurance Providers Payer Name Payer Address Payer Phone Insured Name Patient Relati onship to Insured Coverage Start Date Coverage End Date MEDICARE COMPLETE [employer] [address] [address] [facility] [id number] OWEN PHILLIPS self
--- OUTSIDE RECORDS SUMMARY | 2021-02-02 07:46 | CCD | Continuity of Care Document ---
Author Author Brad KOLB M.D. Organization Unknown Address [address] [place] [address] Phone [phone] Care Team Providers Care Easement Worker Name Role Phone Nabeel Salguero M.D. AUTM Santosh Duran M.D. AUTM [phone] AUTM Unavailable Jojo Alvarado M.D. AUTM [phone] Problems Active Problems Provider Date Idiopathic pulmonary [...] lb BMI (Body Mass Index) 35.9 kg/m2 [place] Body Weight 166 lb Weight 113.400 kg BSA (Body Surface Area) 2.29 m2 12/12/2020 2:21pm BP Systolic 136 mmHg BP Diastolic 64 mmHg Height 70 inches 5'10" Weight 252.00 lb BMI (Body Mass Index) 36.2 kg/m2 [place] Body Weight 166 lb Weight 114.307 kg [...] L Fev6-%Pred-Pre 77 L Fev6-LLN 2.98 L Iku5nqn-Lzss 72 % Gpa0cod-Urd 84 % Vgx0ivy-%Pred-Pre 115 % Lcx7uyg-ACP 62 % Ewh4qlq-Wkyx 94 % Tmc8uue-Crd 100 % Kwn6oyb-%Pred-Pre 106 % FEFMax-Pred 7.60 L/E/sec FEFMax-Pre 5.00 L/E/sec FEFMax-%Pred-Pre 65 L/E/sec FEFMax-LLN 5.28 L/E/sec Rsv9513-Dslp 2.12 L/E/sec Fwc4807-Fxh 3.38 L/E/sec Hys1219-%Pred-Pre 158 L/E/sec Onc6116-WUP 0.52 L/E/sec ExpTime-Pre 5.70 sec Xax2vov5-Tohl 77 % Lnz4jpx6-Ghv 84 % Wfu7lwe3-%Pred-Pre 109 % Rul2gdk6-WIA 68 % CBC With Differential 09/06/2020 [facility] Main Lab [address] [place] [address] [phone] White Blood Count 7.1 10 Normal 4.0-10.0 [...] 36.0-66.0 Lymph % 22.8 % Low 24.0-44.0 [place] % 11.5 % High 2.0-8.0 Eos % 1.7 % Normal 0.0-3.0 Baso % 0.8 % Normal 0.0-1.0 Immature Granulocyte % 0.4 % Normal 0-3.0 Nucleated Red Blood Cell % 0.0 % Normal 0-0 Neutrophils # 4.5 10 Normal 1.5-8.5 Lymph # 1.6 10 Normal 1.5-5.0 [place] # 0.8 10 Normal 0.0-0.8 Eos # 0.1 10 Normal 0.0-0.5 Baso # 0.1 10 Normal 0.0-0.2 Comprehensive Metabolic Profil 09/06/2020 [facility] Main Lab [address] [place] [address] [phone] Glucose, Fasting 119 mg/dL High 70-100 Blood [...] Ratio 1.2 Normal Laboratory test finding 09/06/2020 [facility] Main Lab [address] [place] [address] 22957 [phone] C Reactive Protein Quantitativ 0.30 mg/dL Normal 0 .00-0.30 Antinuclear Antibodies 09/06/2020 [facility] Main Lab [address] [place] [address] [phone] Antinuclear Antibodies Direct Negative Normal Ne gative Sjogren's Anti SS-A <0.2 AI Normal 0.0-0.9 Sjogren's Anti SS-B <0.2 AI Normal 0.0-0.9 Anti Double Strand Dna Nafisa 09/06/2020 [facility] Main Lab [address] [place] [address]1275 [phone] Anti DS-Dna AB Negative Normal Negative 2 Laboratory test finding 09/06/2020 [facility] Main Lab [address] [place] [address] 24444 [phone] Anti-U1 IN SERVICE COORDINATOR AB <20 units Normal <20 3 Anti Branch(Sm) AB <20 units Normal <20 4 1 Units are mL/min/1.73 m2 Chronic Kidney Disease Staging per NKF: Stage I & II GFR >=60 Normal to Mildly Decreased Stage III GFR 30-59 Moderately Decreased Stage IV GFR 15-29 Severely Decreased Stage V GFR <15 Very Little GFR Left ESRD GFR <15 on DESKTOP ANALYST 2 Performed at: - [facility] [address] [id number] Investment Executive: Joanna Bear MD, Phone: [phone] Performed at: [facility] [employer] [address] [place] [address], [facility] [id number] Investment Executive: Matthias Ponce MD, Phone: [phone] Performed at: - [facility] [address] [id number] Investment Executive: Nii Blackman MD, Phone: [phone] 3 Negative: <20 Weak Positive: 20 - 39 Moderate Positive: 40 - 80 Strong Positive: >80 4 Negative: <20 Weak Positive: 20 - 39 Moderate Positive: 40 - 80 Strong Positive: >80 Procedures Date Code Description Status 08/10/2020 01917 Office/Outpatient Established Mo d MDM 30-39 Min Completed 07/27/2020 54736 [facility] Vt asurement Heart Rate, Oximetry Completed Medical Devices Description No Information Available Encounters Type Date Location Provider Dx Diagnosis Office Visit 08/10/2020 2:30p [facility] K Janae davis M.D. J84.10 Pulmonary [...] 3:00 pm - Janae Kolb M.D. at [facility] * 06/18/2021 2:00 pm - Pulmonary Lab at [facility] * 02/02/2021 12:55 pm - Shaka Ortega M.D. at [facility] 01/15/2021 - Janae Kolb M.D.* [...] Shaka Ortega M.D. COLO SCREENING Scheduled 12/01 [facility]- [address] [facility], [address] [place] [address] [phone]
--- OUTSIDE RECORDS SUMMARY | 2021-02-02 07:46 | CCD | Continuity of Care Document ---
Author Author Brad VILLASEÑOR M.D. Organization Unknown Address [address], [address], [place] [address] Phone [phone] Problems Active Problems Provider Date Allergic rhinitis Onset: 07/22/2017 Cough Onset: 07/22/2017 Social History Type Date Description Comments Sex Unknown Allergies and adverse reactions Description No Known Drug Allergies Medications Description No Information Available Medications Administered in Office Medication SIG Qnty Indications Ordering Provider Date Allergy Injection 2 Or More Injection Nabeel Villaseñor M.D. 01/03/2021 Immunizations Description No Information Available Vital Signs Date Vital Result Comment 09/24/2017 3:40pm BMI (Body Mass Index) 31.06 kg/m2 09/24/2017 3:40pm Weight 229.00 lb Height 72 inches Heart Rate 92 /min Respiratory Rate 22 /min BP Systolic 134 mmHg BP Diastolic 72 mmHg O2 % BldC Oximetry 96 % BMI (Body Mass Index) 31.0577 kg/m2 Results Description No Information Available Procedures Date Code Description Status 01/03/2021 42149 Allergy Injection 2 Or More Comp leted Medical Devices Description No Information Available Encounters Description No Information Available Assessments Date Code Description Provider 01/03/2021 J30.1 Allergic rhinitis due to pollen Nabeel Villaseñor M.D. Plan of Treatment No Information Available Functional Status Description No Information Available Mental Status Description No Information Available Referrals Description No Information Available
--- OUTSIDE RECORDS SUMMARY | 2021-02-02 07:46 | CCD | Continuity of Care Document ---
Author Author Brad KOLB M.D. Organization Unknown Address [address] [place] [address] Phone [phone] Care Team Providers Care Shield Cleaner Name Role Phone Nabeel Salguero M.D. AUTM Santosh Duran M.D. AUTM [phone] AUTM Unavailable Jojo Alvarado M.D. AUTM [phone] Problems Active Problems Provider Date Idiopathic pulmonary [...] lb BMI (Body Mass Index) 35.9 kg/m2 [place] Body Weight 166 lb Weight 113.400 kg BSA (Body Surface Area) 2.29 m2 12/12/2020 2:21pm BP Systolic 136 mmHg BP Diastolic 64 mmHg Height 70 inches 5'10" Weight 252.00 lb BMI (Body Mass Index) 36.2 kg/m2 [place] Body Weight 166 lb Weight 114.307 kg [...] L Fev6-%Pred-Pre 77 L Fev6-LLN 2.98 L Ynx9fpb-Pbcx 72 % Tnj8pqn-Jur 84 % Zej4dbx-%Pred-Pre 115 % Gpr6lcm-UER 62 % Xpy7xae-Saaa 94 % Ddz8qtm-Zvu 100 % Klo1chp-%Pred-Pre 106 % FEFMax-Pred 7.60 L/E/sec FEFMax-Pre 5.00 L/E/sec FEFMax-%Pred-Pre 65 L/E/sec FEFMax-LLN 5.28 L/E/sec Egb7088-Hxws 2.12 L/E/sec Vci2718-Haz 3.38 L/E/sec Bgn7698-%Pred-Pre 158 L/E/sec Mgc4292-KTR 0.52 L/E/sec ExpTime-Pre 5.70 sec Qsf9iio3-Okkz 77 % Vxa7odt5-Zgq 84 % Zzk7ixz1-%Pred-Pre 109 % Hfc1ygf3-MJQ 68 % CBC With Differential 09/06/2020 [facility] Main Lab [address] [place] [address] [phone] White Blood Count 7.1 10 Normal 4.0-10.0 [...] 36.0-66.0 Lymph % 22.8 % Low 24.0-44.0 [place] % 11.5 % High 2.0-8.0 Eos % 1.7 % Normal 0.0-3.0 Baso % 0.8 % Normal 0.0-1.0 Immature Granulocyte % 0.4 % Normal 0-3.0 Nucleated Red Blood Cell % 0.0 % Normal 0-0 Neutrophils # 4.5 10 Normal 1.5-8.5 Lymph # 1.6 10 Normal 1.5-5.0 [place] # 0.8 10 Normal 0.0-0.8 Eos # 0.1 10 Normal 0.0-0.5 Baso # 0.1 10 Normal 0.0-0.2 Comprehensive Metabolic Profil 09/06/2020 [facility] Main Lab [address] [place] [address] [phone] Glucose, Fasting 119 mg/dL High 70-100 Blood [...] Ratio 1.2 Normal Laboratory test finding 09/06/2020 [facility] Main Lab [address] [place] [address] [phone] C Reactive Protein Quantitativ 0.30 mg/dL Normal 0 .00-0.30 Antinuclear Antibodies 09/06/2020 [facility] Main Lab [address] [place] [address] [phone] Antinuclear Antibodies Direct Negative Normal Ne gative Sjogren's Anti SS-A <0.2 AI Normal 0.0-0.9 Sjogren's Anti SS-B <0.2 AI Normal 0.0-0.9 Anti Double Strand Dna Nafisa 09/06/2020 [facility] Main Lab [address] [place] [address] [phone] Anti DS-Dna AB Negative Normal Negative 2 Laboratory test finding 09/06/2020 [facility] Main Lab [address] [place] [address]807 [phone] Anti-U1 COMPENSATION EXPERT AB <20 units Normal <20 3 Anti Branch(Sm) AB <20 units Normal <20 4 1 Units are mL/min/1.73 m2 Chronic Kidney Disease Staging per NKF: Stage I & II GFR >=60 Normal to Mildly Decreased Stage III GFR 30-59 Moderately Decreased Stage IV GFR 15-29 Severely Decreased Stage V GFR <15 Very Little GFR Left ESRD GFR <15 on LAWN CARE PROFESSIONAL 2 Performed at: - [facility] [address] [id number] Product Development Director: Joanna Bear MD, Phone: [phone] Performed at: [facility] [employer] [address] [place] [address], [facility] [id number] Product Development Director: Matthias Ponce MD, Phone: [phone] Performed at: - [facility] [address] [id number] Product Development Director: Nii Blackman MD, Phone: [phone] 3 Negative: <20 Weak Positive: 20 - 39 Moderate Positive: 40 - 80 Strong Positive: >80 4 Negative: <20 Weak Positive: 20 - 39 Moderate Positive: 40 - 80 Strong Positive: >80 Procedures Date Code Description Status 08/10/2020 59462 Office/Outpatient Established Mo d MDM 30-39 Min Completed 07/27/2020 64128 [facility] [place] asurement Heart Rate, Oximetry Completed Medical Devices Description No Information Available Encounters Type Date Location Provider Dx Diagnosis Office Visit 08/10/2020 2:30p [facility] K Janae davis M.D. J84.10 Pulmonary [...] 3:00 pm - Janae Kolb M.D. at [facility] * 06/18/2021 2:00 pm - Pulmonary Lab at [facility] * 02/02/2021 12:55 pm - Shaka Ortega M.D. at [facility] 01/15/2021 - Janae Kolb M.D.* [...] Shaka Ortega M.D. COLO SCREENING Scheduled 12/01 [facility]- [address] [facility], [address] [place] [address] [phone]
--- OUTSIDE RECORDS SUMMARY | 2021-02-02 07:46 | CCD | Continuity of Care Document ---
Author Author Brad [facility] Organization Unknown Address [address], [address] [place] [address] Phone [phone] Care Team Providers Care Adolescent Counselor Name Role Phone Nabeel Salguero M.D. AUTM [phone] Santosh Duran M.D. AUTM [phone] AUTM Unavailable Jojo Alvarado M.D. AUTM [phone] Problems Active Problems Provider Date Idiopathic pulmonary fibrosis Ashlie Gamino M.D. Onset: 03/04/2017 Chronic pansinusitis Mahesh Mccullough MD Onset: 03/12/2017 Cough Mahesh Mccullough MD Onset: 03/12/2017 Difficulty breathing Mahesh Mccullough MD Onset: 03/12/2017 Posterior rhinorrhea Mhaesh Mccullough MD Onset: 03/12/2017 Ex-smoker Mahesh Mccullough [...] SIG Qnty Indications Ordering Provide r Date Miralax 17GM/Scoop Powder use as instructed by [...] 2-3 times a day as needed 750ml J47Brenda Aldana M.D. 05/11/2020 Fluticasone Propionate/Salmeterol Diskus 100-50mcg/Dose Aerosol 1 puff twice a day 60units Binu Duran M.D. 04/06/2020 Nucala 100mg Solution Rec 300mg subcutaneous every four weeks 3units Ashlie raza M.D. 08/04/2018 Albuterol Sulfate (2 .5mg/3ML) 0.083% Nebulizer 1 vial via neb twice a day and every 4 hours as needed dx: tj47.9 360ml Janae Duran M.D. 10/09/2017 Acapella Shani Colunga reedom use as directed twice a day after nebulized Albuterol dx: J47.9 Unkno wn Aspirin Ec Low Dose 81mg Tablets DR Daily Unknown Omeprazole 40mg Capsules DR 1 by mouth every day Unknown Amlodipine Besylate 10mg Tablets 1 by mouth every day Unknown Lisinopril 20mg Tablets bid Unknown Pravastatin Sodium 40mg Tablets 1 by mouth every day Unknown Multi Vitamin Daily Tablets Daily Unknown Vitamin B12 1000mcg Tablets ER 1 by mouth every day Unknown Ibuprofen 800mg Tablets tid Unknown Medications Administered in Office Medication SIG Qnty Indications Ordering Provider Date Covid-19 vaccine, Unspecified Inj ection Unknown 06/11/2020 Covid-19 vaccine, Unspecified Inj ection Unknown 05/21/2020 Immunizations Description No Information Available Vital Signs Date Vital Result Comment 12/12/2020 2:21pm BP Systolic 136 mmHg BP Diastolic 64 mmHg Height 70 inches 5'10" Weight 252.00 lb BMI (Body Mass Index) 36.2 kg/m2 Boss Body Weight 166 lb Weight 114.307 kg BSA (Body Surface Area) 2.30 m2 08/10/2020 2:33pm BP Systolic 132 mmHg BP Diastolic 76 mmHg Heart Rate 82 /min O2 % BldC Oximetry 97 % Height 70 inches 5'10" Weight 247.38 lb BMI (Body Mass Index) 35.5 kg/m2 Boss Body Weight 166 lb Weight 112.209 kg BSA (Body Surface Area) 2.28 m2 Results Test Acquired Date Facility Test Result H/L Range Note CBC With Differential 09/06/2020 [facility] Main Lab [address] [place] [address] [phone] White Blood Count 7.1 10 Normal 4.0-10.0 [...] 36.0-66.0 Lymph % 22.8 % Low 24.0-44.0 Terrell % 11.5 % High 2.0-8.0 Eos % 1.7 % Normal 0.0-3.0 Baso % 0.8 % Normal 0.0-1.0 Immature Granulocyte % 0.4 % Normal 0-3.0 Nucleated Red Blood Cell % 0.0 % Normal 0-0 Neutrophils # 4.5 10 Normal 1.5-8.5 Lymph # 1.6 10 Normal 1.5-5.0 Terrell # 0.8 10 Normal 0.0-0.8 Eos # 0.1 10 Normal 0.0-0.5 Baso # 0.1 10 Normal 0.0-0.2 Comprehensive Metabolic Profil 09/06/2020 [facility] Main Lab [address] [place] [address] [id number] [phone] Glucose, Fasting 119 mg/dL High 70-100 Blood [...] Ratio 1.2 Normal Laboratory test finding 09/06/2020 [facility] Main Lab [address] [place] [address] [phone] C Reactive Protein Quantitativ 0.30 mg/dL Normal 0 .00-0.30 Antinuclear Antibodies 09/06/2020 [facility] Main Lab [address] [place] [address] [phone] Antinuclear Antibodies Direct Negative Normal Ne gative Sjogren's Anti SS-A <0.2 AI Normal 0.0-0.9 Sjogren's Anti SS-B <0.2 AI Normal 0.0-0.9 Anti Double Strand Dna Nafisa 09/06/2020 [facility] Main Lab [address] [place] [address] [phone] Anti DS-Dna AB Negative Normal Negative 2 Laboratory test finding 09/06/2020 [facility] Main Lab [address] [place] [address] [phone] Anti-U1 MICROARRAY OPERATIONS VICE PRESIDENT AB <20 units Normal <20 3 Anti Branch(Sm) AB <20 units Normal <20 4 1 Units are mL/min/1.73 m2 Chronic Kidney Disease Staging per NKF: Stage I & II GFR >=60 Normal to Mildly Decreased Stage III GFR 30-59 Moderately Decreased Stage IV GFR 15-29 Severely Decreased Stage V GFR <15 Very Little GFR Left ESRD GFR <15 on LEGGER PRESS OPERATOR 2 Performed at: RN - [facility] [address] [id number] Financial Accounting Analyst: Joanna Bear MD, Phone: [phone] Performed at: [facility] [address] [place] [address] [id number] Financial Accounting Analyst: Matthias Ponce MD, Phone: [phone] Performed at: - [facility] [address] [id number] Financial Accounting Analyst: Nii Blackman MD, Phone: [phone] Negative: <20 Weak Positive: 20 - 39 Moderate Positive: 40 - 80 Strong Positive: >80 4 Negative: <20 Weak Positive: 20 - 39 Moderate Positive: 40 - 80 Strong Positive: >80 Procedures Date Code Description Status 08/10/2020 77756 Office/Outpatient Established Mo d MDM 30-39 Min Completed 07/27/2020 83914 [facility] [place] asure[place] Heart Rate, Oximetry Completed Medical Devices Description No Information Available Encounters Type Date Location Provider Dx Diagnosis Office Visit 08/10/2020 2:30p [facility] Janae Nash M.D. 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 08/10/2020 J47.9 Bronchiectasis, uncomplicated Janae uZniga M.D. 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 08/10/2020 R91.8 Other nonspecific abnormal findi ng of lung field Janae Duran M.D. 07/27/2020 J84.10 Pulmonary fibrosis, unspecified Pulmonary Lab Plan of Treatment Future Appointment(s):* 01/15/2021 2:30 pm - Janae Duran M.D. at [facility] 12/12/2020 - CANDE Tovar* Z12.11 Encounter for screening for malignant neoplasm of colon * K59.00 Constipation, unspecified * * New Medication:* Miralax 17 GM/Scoop * Miralax 17 GM/Scoop * Dulcolax 5 mg * New Orders:* Colonoscopy, Ordered: 12/12/20 * Comments:* Will arrange for colonoscopy. Reviewed risks and benefits of the procedure, as well as other options, with the patient. Bowel prep procedure was discussed with patient, as well as risks and side effects associated with the bowel prep. Patient verbalized understanding of all of the above and is in agreement to proceed. Patient will seek medical attention for any acute changes. Will monitor. * Follow up:* As scheduled, sooner if needed. Functional Status Functional Condition Comment Date Status Independent with all ADL's Activ e Independent with all IADL's Acti ve Mental Status Mental Condition Comment Date Status Cognitive ability not impaired A ctive Referrals Refer to Reason for Referral Status Appt Date Shaka Ortega M.D. COLO SCREENING Scheduled 12/01 [facility] [address], [address] [place] [address] [phone]
--- OUTSIDE RECORDS SUMMARY | 2021-02-02 07:47 | CCD ---
Author Author [facility] Organization [facility] Address Unknown Phone Unavailable Care Team Providers Care Scale Model Maker Name Role Phone KIRSCHMAN, L ALEXANDER LEAD SECTION SUPERVISOR Unavailable Unavailable KIRSCHMAN, L ALEXANDER LEAD SECTION SUPERVISOR Unavailable Unavailable KIRSCHMAN, L ALEXANDER LEAD SECTION SUPERVISOR Unavailable Unavailable KIRSCHMAN, L ALEXANDER LEAD SECTION SUPERVISOR Unavailable Unavailable KIRSCHMAN, L ALEXANDER LEAD SECTION SUPERVISOR Unavailable Unavailable KIRSCHMAN, L ALEXANDER LEAD SECTION SUPERVISOR Unavailable Unavailable KIRSCHMAN, L ALEXANDER LEAD SECTION SUPERVISOR Unavailable Unavailable KIRSCHMAN, L ALEXANDER LEAD SECTION SUPERVISOR Unavailable Unavailable KIRSCHMAN, L ALEXANDER LEAD SECTION SUPERVISOR Unavailable Unavailable KIRSCHMAN, L ALEXANDER LEAD SECTION SUPERVISOR Unavailable Unavailable KIRSCHMAN, L ALEXANDER LEAD SECTION SUPERVISOR Unavailable Unavailable KIRSCHMAN, L ALEXANDER LEAD SECTION SUPERVISOR Unavailable Unavailable KIRSCHMAN, L ALEXANDER LEAD SECTION SUPERVISOR Unavailable Unavailable KIRSCHMAN, L ALEXANDER LEAD SECTION SUPERVISOR Unavailable Unavailable KIRSCHMAN, L ALEXANDER LEAD SECTION SUPERVISOR Unavailable Unavailable KIRSCHMAN, L ALEXANDER LEAD SECTION SUPERVISOR Unavailable Unavailable KIRSCHMAN, L ALEXANDER LEAD SECTION SUPERVISOR Unavailable Unavailable KIRSCHMAN, L ALEXANDER LEAD SECTION SUPERVISOR Unavailable Unavailable KIRSCHMAN, L ALEXANDER LEAD SECTION SUPERVISOR Unavailable Unavailable KIRSCHMAN, L ALEXANDER LEAD SECTION SUPERVISOR Unavailable Unavailable KIRSCHMAN, L ALEXANDER LEAD SECTION SUPERVISOR Unavailable Unavailable KIRSCHMAN, L ALEXANDER LEAD SECTION SUPERVISOR Unavailable Unavailable KIRSCHMAN, L ALEXANDER LEAD SECTION SUPERVISOR Unavailable Unavailable KIRSCHMAN, L ALEXANDER LEAD SECTION SUPERVISOR Unavailable Unavailable KIRSCHMAN, L ALEXANDER LEAD SECTION SUPERVISOR Unavailable Unavailable KIRSCHMAN, L ALEXANDER LEAD SECTION SUPERVISOR Unavailable Unavailable KIRSCHMAN, L ALEXANDER LEAD SECTION SUPERVISOR Unavailable Unavailable KIRSCHMAN, L ALEXANDER LEAD SECTION SUPERVISOR Unavailable Unavailable KIRSCHMAN, L ALEXANDER LEAD SECTION SUPERVISOR Unavailable Unavailable KIRSCHMAN, L ALEXANDER LEAD SECTION SUPERVISOR Unavailable Unavailable KIRSCHMAN, L ALEXANDER LEAD SECTION SUPERVISOR Unavailable Unavailable KIRSCHMAN, L ALEXANDER LEAD SECTION SUPERVISOR Unavailable Unavailable KIRSCHMAN, L ALEXANDER LEAD SECTION SUPERVISOR Unavailable Unavailable KIRSCHMAN, L ALEXANDER LEAD SECTION SUPERVISOR Unavailable Unavailable KIRSCHMAN, L ALEXANDER LEAD SECTION SUPERVISOR Unavailable Unavailable KIRSCHMAN, L ALEXANDER LEAD SECTION SUPERVISOR Unavailable Unavailable KIRSCHMAN, L ALEXANDER LEAD SECTION SUPERVISOR Unavailable Unavailable KIRSCHMAN, L ALEXANDER LEAD SECTION SUPERVISOR Unavailable Unavailable KIRSCHMAN, L ALEXANDER LEAD SECTION SUPERVISOR Unavailable Unavailable KIRSCHMAN, L ALEXANDER LEAD SECTION SUPERVISOR Unavailable Unavailable KIRSCHMAN, L ALEXANDER LEAD SECTION SUPERVISOR Unavailable Unavailable KIRSCHMAN, L ALEXANDER LEAD SECTION SUPERVISOR Unavailable Unavailable KIRSCHMAN, L ALEXANDER LEAD SECTION SUPERVISOR Unavailable Unavailable KIRSCHMAN, L ALEXANDER LEAD SECTION SUPERVISOR Unavailable Unavailable KIRSCHMAN, L ALEXANDER LEAD SECTION SUPERVISOR Unavailable Unavailable KIRSCHMAN, L ALEXANDER LEAD SECTION SUPERVISOR Unavailable Unavailable KIRSCHMAN, L ALEXANDER LEAD SECTION SUPERVISOR Unavailable Unavailable BETZYHannah ZAPATA MD Unavailable Unavailable BETZYHannha VELASCO MD Unavailable Unavailable BETZYHannah VELASCO MD Unavailable Unavailable BETZYHannah VELASCO MD Unavailable Unavailable BETZYHannah VELASCO MD Unavailable Unavailable BETZYHannah ZAPATA MD Unavailable Unavailable BETZYHannah ZAPATA MD Unavailable Unavailable BETZYHannah ZAPATA MD Unavailable Unavailable BETZYHannah ZAPATA MD Unavailable Unavailable BETZYHannah ZAPATA MD Unavailable Unavailable BETZYHannah ZAPATA MD Unavailable Unavailable BETZYHannah ZAPATA MD Unavailable Unavailable BETZYHannah ZAPATA MD Unavailable Unavailable BETZYHannah ZAPATA MD Unavailable Unavailable BETZYHannah VELASCO MD Unavailable Unavailable BETZYHannah VELASCO MD Unavailable Unavailable BETZYHannah VELASCO MD Unavailable Unavailable BETZYHannah VELASCO MD Unavailable Unavailable BETZY, Hannah Gallardo MD Unavailable Unavailable BETZY, Hannah Gallardo MD Unavailable Unavailable BETZY, Hannah Gallardo MD Unavailable Unavailable BETZY, Hannah Gallardo MD Unavailable Unavailable BETZY, Hannah Gallardo MD Unavailable Unavailable BETZY, Hannah Gallardo MD Unavailable Unavailable BETZY, Hannah Gallardo MD Unavailable Unavailable BETZY, Hannah Gallardo MD Unavailable Unavailable BETZY, Hannah Gallardo MD Unavailable Unavailable BETZY, Hannah Gallardo MD Unavailable Unavailable BETZY, Hannah Gallardo MD Unavailable Unavailable BETZY, Hannah Gallardo MD Unavailable Unavailable BETZY, Hannah Gallardo MD Unavailable Unavailable BETZY, Hannah Gallardo MD Unavailable Unavailable BETZY, Hannah Gallardo MD Unavailable Unavailable BETZY, Hannah Gallardo MD Unavailable Unavailable BETZY, Hannah Gallardo MD Unavailable Unavailable BETZY, Hannah Gallardo MD Unavailable Unavailable BETZY, Hannah Gallardo MD Unavailable Unavailable BETZY, Hannah Gallardo MD Unavailable Unavailable BETZY, Hannah Gallardo MD Unavailable Unavailable BETZY, Hannah Gallardo MD Unavailable Unavailable BETZY, Hannah Gallardo MD Unavailable Unavailable BETZY, Hannah aGllardo MD Unavailable Unavailable BETZY, Hannah Gallardo MD Unavailable Unavailable BETZY, Hananh Gallardo MD Unavailable Unavailable BETZY, Hannah Gallardo MD Unavailable Unavailable BETZY, Hannah Gallardo MD Unavailable Unavailable BEZTY, Hannah Gallardo MD Unavailable Unavailable BETZY, Hannah Gallardo MD Unavailable Unavailable BETZY, Hannah Gallardo MD Unavailable Unavailable BETZY, Hannah Gallardo MD Unavailable Unavailable BETZY, Hannah Gallardo MD Unavailable Unavailable BETZY, Hannah Gallardo MD Unavailable Unavailable BETZY, Hannah Gallardo MD Unavailable Unavailable BETZY, Hannah Gallardo MD Unavailable Unavailable BETZY, Hannah Gallardo MD Unavailable Unavailable BETZY, Hannah Gallardo MD Unavailable Unavailable BETZY, Hannah Gallardo MD Unavailable Unavailable BETZY, Hannah Gallardo MD Unavailable Unavailable BETZY, Hannah Gallardo MD Unavailable Unavailable BETZY, Hannah Gallardo MD Unavailable Unavailable BETZY, Hannah Gallardo MD Unavailable Unavailable BETZY, Hannah Gallardo MD Unavailable Unavailable Janae Duran MD Unavailable Unavailable aJnae Duran MD Unavailable Unavailable Janae Duran MD Unavailable Unavailable Janae Duran MD Unavailable Unavailable Janae Duran MD Unavailable Unavailable Janae Duran MD Unavailable Unavailable Janae Duran MD Unavailable Unavailable Janae Duran MD Unavailable Unavailable Janae Duran MD Unavailable Unavailable Janae Duran MD Unavailable Unavailable Janae Duran MD Unavailable Unavailable Janae Duran MD Unavailable Unavailable Janae Duran MD Unavailable Unavailable Janae Duran MD Unavailable Unavailable Janae Duran MD Unavailable Unavailable Janae Duran MD Unavailable Unavailable Janae Duran MD Unavailable Unavailable Janae Duran MD Unavailable Unavailable Janae Duran MD Unavailable Unavailable Janae Duran MD Unavailable Unavailable Janae Duran MD Unavailable Unavailable Janae Duran MD Unavailable Unavailable Janae Duran MD Unavailable Unavailable Janae Duran MD Unavailable Unavailable Janae Duran MD Unavailable Unavailable Janae Duran MD Unavailable Unavailable Janae Duran MD Unavailable Unavailable Janae Duran MD Unavailable Unavailable Janae Duran MD Unavailable Unavailable Janae Duran MD Unavailable Unavailable Santosh Duran MD Unavailable Unavailable KIRSCHMAN, L ALEXANDER LEAD SECTION SUPERVISOR Unavailable Unavailable KIRSCHMAN, L ALEXANDER LEAD SECTION SUPERVISOR Unavailable Unavailable KIRSCHMAN, L ALEXANDER LEAD SECTION SUPERVISOR Unavailable Unavailable KIRSCHMAN, L ALEXANDER LEAD SECTION SUPERVISOR Unavailable Unavailable KIRSCHMAN, L ALEXANDER LEAD SECTION SUPERVISOR Unavailable Unavailable KIRSCHMAN, L ALEXANDER LEAD SECTION SUPERVISOR Unavailable Unavailable KIRSCHMAN, L ALEXANDER LEAD SECTION SUPERVISOR Unavailable Unavailable KIRSCHMAN, L ALEXANDER LEAD SECTION SUPERVISOR Unavailable Unavailable KIRSCHMAN, L ALEXANDER LEAD SECTION SUPERVISOR Unavailable Unavailable KIRSCHMAN, L ALEXANDER LEAD SECTION SUPERVISOR Unavailable Unavailable KIRSCHMAN, L ALEXANDER LEAD SECTION SUPERVISOR Unavailable Unavailable KIRSCHMAN, L ALEXANDER LEAD SECTION SUPERVISOR Unavailable Unavailable KIRSCHMAN, L ALEXANDER LEAD SECTION SUPERVISOR Unavailable Unavailable KIRSCHMAN, L ALEXANDER LEAD SECTION SUPERVISOR Unavailable Unavailable KIRSCHMAN, L ALEXANDER LEAD SECTION SUPERVISOR Unavailable Unavailable KIRSCHMAN, L ALEXANDER LEAD SECTION SUPERVISOR Unavailable Unavailable KIRSCHMAN, L ALEXANDER LEAD SECTION SUPERVISOR Unavailable Unavailable KIRSCHMAN, L ALEXANDER LEAD SECTION SUPERVISOR Unavailable Unavailable KIRSCHMAN, L ALEXANDER LEAD SECTION SUPERVISOR Unavailable Unavailable KIRSCHMAN, L ALEXANDER LEAD SECTION SUPERVISOR Unavailable Unavailable KIRSCHMAN, L ALEXANDER LEAD SECTION SUPERVISOR Unavailable Unavailable KIRSCHMAN, L ALEXANDER LEAD SECTION SUPERVISOR Unavailable Unavailable KIRSCHMAN, L ALEXANDER LEAD SECTION SUPERVISOR Unavailable Unavailable KIRSCHMAN, L ALEXANDER LEAD SECTION SUPERVISOR Unavailable Unavailable KIRSCHMAN, L ALEXANDER LEAD SECTION SUPERVISOR Unavailable Unavailable KIRSCHMAN, L ALEXANDER LEAD SECTION SUPERVISOR Unavailable Unavailable KIRSCHMAN, L ALEXANDER LEAD SECTION SUPERVISOR Unavailable Unavailable KIRSCHMAN, L ALEXANDER LEAD SECTION SUPERVISOR Unavailable Unavailable KIRSCHMAN, L ALEXANDER LEAD SECTION SUPERVISOR Unavailable Unavailable KIRSCHMAN, L ALEXANDER LEAD SECTION SUPERVISOR Unavailable Unavailable KIRSCHMAN, L ALEXANDER LEAD SECTION SUPERVISOR Unavailable Unavailable KIRSCHMAN, L ALEXANDER LEAD SECTION SUPERVISOR Unavailable Unavailable KIRSCHMAN, L ALEXANDER LEAD SECTION SUPERVISOR Unavailable Unavailable KIRSCHMAN, L ALEXANDER LEAD SECTION SUPERVISOR Unavailable Unavailable KIRSCHMAN, L ALEXANDER LEAD SECTION SUPERVISOR Unavailable Unavailable KIRSCHMAN, L ALEXANDER LEAD SECTION SUPERVISOR Unavailable Unavailable KIRSCHMAN, L ALEXANDER LEAD SECTION SUPERVISOR Unavailable Unavailable KIRSCHMAN, L ALEXANDER LEAD SECTION SUPERVISOR Unavailable Unavailable KIRSCHMAN, L ALEXANDER LEAD SECTION SUPERVISOR Unavailable Unavailable KIRSCHMAN, L ALEXANDER LEAD SECTION SUPERVISOR Unavailable Unavailable KIRSCHMAN, L ALEXANDER LEAD SECTION SUPERVISOR Unavailable Unavailable KIRSCHMAN, L ALEXANDER LEAD SECTION SUPERVISOR Unavailable Unavailable KIRSCHMAN, L ALEXANDER LEAD SECTION SUPERVISOR Unavailable Unavailable KIRSCHMAN, L ALEXANDER LEAD SECTION SUPERVISOR Unavailable Unavailable KIRSCHMAN, L ALEXANDER LEAD SECTION SUPERVISOR Unavailable Unavailable KIRSCHMAN, L ALEXANDER LEAD SECTION SUPERVISOR Unavailable Unavailable KIRSCHMAN, L ALEXANDER LEAD SECTION SUPERVISOR Unavailable Unavailable TURRIN, DELFINA Unavailable Unavailable TURRIN, DELFINA Unavailable Unavailable TURRIN, DELFINA Unavailable Unavailable TURRIN, DELFINA Unavailable Unavailable Roger, [id number] MD Santosh GARCIA Unavailable Roger, [id number] MD Santosh GARCIA Unavailable Roger, [id number] MD Santosh GARCIA Unavailable Roger, [id number] MD Santosh GARCIA Unavailable Roger, [id number] MD Santosh GARCIA Unavailable Roger, [id number] MD Santosh GARCIA Unavailable Roger, [id number] MD Santosh GARCIA Unavailable Roger, [id number] MD Santosh GARCIA Unavailable Roger, [id number] MD Santosh GARCIA Unavailable Roger, [id number] MD Santosh GARCIA Unavailable Roger, [id number] MD Santosh GARCIA Unavailable Roger, [id number] MD Santosh GARCIA Unavailable Roger, [id number] MD Santosh GARCIA Unavailable Roger, [id number] MD Santosh MD Unavailable Roger, [id number] MD Santosh MD Unavailable Roger, [id number] MD Santosh MD Unavailable Roger, [id number] MD Santosh MD Unavailable Roger, [id number] MD Santosh MD Unavailable Roger, [id number] MD Santosh MD Unavailable Roger, [id number] MD Santosh MD Unavailable Roger, [id number] MD Santosh MD Unavailable Roger, [id number] MD Santosh MD Unavailable Roger, [id number] MD Santosh MD Unavailable Roger, [id number] MD Santosh MD Unavailable Roger, [id number] MD Santosh MD Unavailable Roger, [id number] MD Santosh MD Unavailable Roger, [id number] MD Santosh MD Unavailable Roger, [id number] MD Santosh MD Unavailable Roger, [id number] MD Santosh MD Unavailable Roger, [id number] MD Santosh MD Unavailable Roger, [id number] MD Santosh MD Unavailable Roger, [id number] MD Santosh MD Unavailable Roger, [id number] MD Santosh MD Unavailable Hannah RAY MD Unavailable Unavailable Hannah RAY MD Unavailable Unavailable Hannah RAY MD Unavailable Unavailable Hannah RAY MD Unavailable Unavailable Hannah RAY MD Unavailable Unavailable Hannah RAY MD Unavailable Unavailable Hannah RAY MD Unavailable Unavailable Hannah RAY MD Unavailable Unavailable Hannah RAY MD Unavailable Unavailable ABIGAILLIHannah TERRAZAS MD Unavailable Unavailable Hannah RAY MD Unavailable Unavailable Re-disclosure Warning The records that you are about to access may contain information from federally-assisted alcohol or drug abuse programs. If such information is present, then the following federally mandated warning applies: This information has been disclosed to you from records protected by federal confidentiality rules (42 CFR part 2). The federal rules prohibit you from making any further disclosure of this information unless further disclosure is expressly permitted by the written consent of the person to whom it pertains or as otherwise permitted by 42 CFR part 2. A general authorization for the release of medical or other information is NOT sufficient for this purpose. The Federal rules restrict any use of the information to criminally investigate or prosecute any alcohol or drug abuse patient.The records that you are about to access may contain highly sensitive health information, the redisclosure of which is protected by Article 27-F of the [facility] Public Health law. If you continue you may have access to information: Regarding HIV / AIDS; Provided by facilities licensed or operated by the [facility] Office of Mental Health; or Provided by the [facility] Office for People With Developmental Disabilities. If such information is present, then the following [facility] mandated warning applies: This information has been disclosed to you from confidential records which are protected by state law. State law prohibits you from making any further disclosure of this information without the specific written consent of the person to whom it pertains, or as otherwise permitted by law. Any unauthorized further disclosure in violation of state law may result in a fine or mcfp sentence or both. A general authorization for the release of medical or other information is NOT sufficient authorization for further disc losure. Allergies and Adverse Reactions Type Description Substance Reaction Status Data Source(s ) No Known Allergies No Known Allergies [facility] Family History Family Member Name Family Member Gender Family Member Status Date o f Status Description Data Source(s) Unknown Unknown Problem MEDENT ([facility], ) Encounters Encounter Providers Location Date Indications Data Source(s ) Unknown [address] [facility], [facility] [address] 01/18/2021 12:00:00 AM EST eCW1 ([facility]) Unknown [address] [facility] [address] 01/18/2021 12:00:00 AM EST eCW1 ([facility]) Outpatient Attender: Janae Prakash/Nicko/Jeevan/Justice espinoza 01/15/2021 01:30:00 PM EST MEDENT ([facility]) Office Visit, Est Pt., Level 3 PC [address] [place] [address] 11/29/2020 12:00:00 AM EDT eCW1 ([facility]) Unknown [address] [facility] [address] 11/28/2020 12:00:00 AM EDT eCW1 ([facility]) Emergency Attender: DELFINA WAYNEConsultant: ALEXANDER BONNER LEAD SECTION SUPERVISOR 11/20/2020 12:35:00 PM EDT - 11/20/2020 02:58:00 PM EDT [facility] Patient discharged. Unknown [address] [facility] [address] 10/25/2020 12:00:00 AM EDT eCW1 ([facility]) Outpatient [address] [facility] [address] 10/24/2020 12:00:00 AM EDT eCW1 ([facility]) Unknown [address] [facility] [address] 10/24/2020 12:00:00 AM EDT eCW1 ([facility]) Unknown [address] [facility] [address] 10/23/2020 12:00:00 AM EDT eCW1 ([facility]) Emergency Attender: MARGARITO RAY MDConsultant: VIOLET WU NP 10/12/2020 02:09:00 PM EDT - 10/12/2020 05:14:00 PM EDT [facility] Patient discharged. Outpatient [address] [facility] [address] 09/26/2020 12:00:00 AM EDT eCW1 ([facility]) (Cysto1) Urology [address] [place] [address] 09/15/2020 12:00:00 AM EDT eCW1 ([facility]) (PN Proc 45) Pain Procedure 45 [address] [place] [address] 09/11/2020 12:00:00 AM EDT eCW1 ([facility]) Outpatient Attender: Sami BO MD [id number] 09/08/19 12:00:00 AM EDT - 09/07/2020 03:12:13 PM EDT [facility] Unknown [address] [facility] [address] 09/07/2020 12:00:00 AM EDT eCW1 ([facility]) Unknown [address] [facility] [address] 09/06/2020 12:00:00 AM EDT eCW1 ([facility]) Outpatient Attender: [id number] Santosh Duran MD [facility] 08/28/2020 03:36:00 PM EDT - 08/28/2020 03:37:00 PM EDT [facility] Patient discharged. Unknown [address] [facility] [address] 08/23/2020 12:00:00 AM EDT eCW1 ([facility]) Outpatient [address] [facility] [address] 08/22/2020 12:00:00 AM EDT eCW1 ([facility]) Outpatient Attender: Janae Prakash/Nicko/Jeevan/Justice espinoza 08/10/2020 02:30:00 PM EDT MEDENT ([facility]) Outpatient [address] [facility] [address] 08/09/2020 12:00:00 AM EDT [facility] Outpatient Attender: ALEXANDER WU [facility] 01:30:00 PM EDT MEDENT (C[facility]ley [facility]) Unknown [address] [facility] [address] 08/01/2020 12:00:00 AM EDT [facility]CW[facility]) Unknown [address] [facility] [address] 06/29/2020 12:00:00 AM EDT eCW1 ([facility]) Outpatient [address] [facility] [address] 06/22/2020 12:00:00 AM EDT eCW1 ([facility]) Unknown [address] [facility], [facility] [address] 06/13/2020 12:00:00 AM EDT eCW1 ([facility]) Outpatient Attender: [id number] Santosh Duran MD [facility] 05/12/2020 09:35:00 AM EST - 05/12/2020 09:36:00 AM EST [facility] Patient discharged. Outpatient Attender: Janae Prakash/Nicko/Jeevan/Justice ndl 05/11/2020 02:30:00 PM EST MEDENT ([facility]) Outpatient [address] [facility] [address] 05/09/2020 12:00:00 AM EST eCW1 ([facility]) Outpatient Attender: ALEXANDER WU [facility] 01:30:00 PM EST MEDENT (Chet Hanley MD) (PN Proc 45) Pain Procedure 45 [address] [place] [address] 04/24/2020 12:00:00 AM EST eCW1 ([facility]) Unknown [address] [facility], [facility] [address] 04/21/2020 12:00:00 AM EST eCW1 ([facility]) Outpatient Attender: Santosh Duran MDAttender: [id number] Santosh Duran MD [facility] 04/17/2020 02:56:00 PM EST - 04/17/2020 02:57:00 PM EST M30. 1 [facility] M30.1 Patient discharged. Outpatient [address] [facility] [address] 04/07/2020 12:00:00 AM EST eCW1 ([facility] [place]) Outpatient Attender: Janae Prakash/Nicko/Jeevan/Justice ndl 04/06/2020 02:00:00 PM EST MEDENT ([facility]) Unknown [address] [facility] [address] 03/24/2020 12:00:00 AM EST eCW1 ([facility]) Unknown [address] [facility] [address] 03/24/2020 12:00:00 AM EST eCW1 ([facility]) Unknown [address] [facility] [address] 03/23/2020 12:00:00 AM EST eCW1 ([facility]) Unknown [address] [facility] [address] 02/16/2020 12:00:00 AM EST eCW1 ([facility]) Outpatient [address] [facility] [address] 01/31/2020 12:00:00 AM EST eCW1 ([facility]) Unknown [address] [facility] [address] 01/17/2020 12:00:00 AM EST [facility] [place] (PN Proc 45) Pain Procedure 45 [address] [place] [address] 01/17/2020 12:00:00 AM EST eCW1 ([facility]) Unknown [address] [facility] [address] 01/14/2020 12:00:00 AM EST eCW1 ([facility]) Outpatient [address] [facility] [address] 01/03/2020 12:00:00 AM EST eCW1 ([facility]) (PN Proc 60) Pain Procedure 60 [address] [place] [address] 12/20/2019 12:00:00 AM EDT eCW1 ([facility]) Unknown [address] [facility] [address] 12/17/2019 12:00:00 AM EDT eCW1 ([facility]) Outpatient Attender: ALEXANDER WU [facility] 02:30:00 PM EDT MEDENT (Chet Hanley MD) Outpatient [address] [facility] [address] 12/09/2019 12:00:00 AM EDT eCW1 ([facility]) Outpatient Attender: Santosh Duran MDAttender: [id number] Santosh Duran MD [facility] 12/08/2019 02:06:00 PM EDT - 12/08/2019 02:07:00 PM EDT [facility] Patient discharged. Immunizations Vaccine Date Status Description Data Source(s) COVID-19 VACCINE Pfizer 12/11/2020 12:00:00 AM EDT completed [employer] Vaccine Series Complete: YESThis Data wa s Submitted to [facility] Via [employer]. COVID-19 dose #2 given elsewhere Unspecified 06/11/2020 09:5 6:00 AM EDT completed eCW1 ([facility]) COVID-19 dose #2 given elsewhere Unspecified 06/11/2020 09:5 6:00 AM EDT completed eCW1 ([facility]) COVID-19 dose #2 given elsewhere Unspecified 06/11/2020 09:5 6:00 AM EDT completed eCW1 ([facility]) COVID-19 dose #2 given elsewhere Unspecified 06/11/2020 09:5 6:00 AM EDT completed eCW1 ([facility]) COVID-19 dose #2 given elsewhere Unspecified 06/11/2020 09:5 6:00 AM EDT completed eCW1 ([facility]) COVID-19 dose #2 given elsewhere Unspecified 06/11/2020 09:5 6:00 AM EDT completed [facility] [facility]) COVID-19 dose #2 given elsewhere Unspecified 06/11/2020 09:5 6:00 AM EDT completed eCW1 ([facility]) COVID-19 dose #2 given elsewhere Unspecified 06/11/2020 09:5 6:00 AM EDT completed eCW1 ([facility]) COVID-19 dose #2 given elsewhere Unspecified 06/11/2020 09:5 6:00 AM EDT completed eCW1 ([facility]) COVID-19 dose #2 given elsewhere Unspecified 06/11/2020 09:5 6:00 AM EDT completed eCW1 ([facility]) COVID-19 dose #2 given elsewhere Unspecified 06/11/2020 09:5 6:00 AM EDT completed eCW1 ([facility]) COVID-19 dose #2 given elsewhere Unspecified 06/11/2020 09:5 6:00 AM EDT completed eCW1 ([facility]) COVID-19 dose #2 given elsewhere Unspecified 06/11/2020 09:5 6:00 AM EDT completed eCW1 ([facility]) COVID-19 dose #2 given elsewhere Unspecified 06/11/2020 09:5 6:00 AM EDT completed eCW1 ([facility]) COVID-19 dose #2 given elsewhere Unspecified 06/11/2020 09:5 6:00 AM EDT completed eCW1 ([facility]) COVID-19 VACCINE Pfizer 06/11/2020 12:00:00 AM EDT completed [employer] Vaccine Series Complete: YESThis Data wa s Submitted to [facility] [employer]. COVID-19 dose #1 given elsewhere Unspecified 05/21/2020 09:5 6:00 AM EDT completed eCW1 ([facility]) COVID-19 dose #1 given elsewhere Unspecified 05/21/2020 09:5 6:00 AM EDT completed eCW1 ([facility]) COVID-19 dose #1 given elsewhere Unspecified 05/21/2020 09:5 6:00 AM EDT completed eCW1 ([facility]) COVID-19 dose #1 given elsewhere Unspecified 05/21/2020 09:5 6:00 AM EDT completed eCW1 ([facility]) COVID-19 dose #1 given elsewhere Unspecified 05/21/2020 09:5 6:00 AM EDT completed eCW1 ([facility]) COVID-19 dose #1 given elsewhere Unspecified 05/21/2020 09:5 6:00 AM EDT completed eCW1 ([facility]) COVID-19 dose #1 given elsewhere Unspecified 05/21/2020 09:5 6:00 AM EDT completed eCW1 ([facility]) COVID-19 dose #1 given elsewhere Unspecified 05/21/2020 09:5 6:00 AM EDT completed eCW1 ([facility]) COVID-19 dose #1 given elsewhere Unspecified 05/21/2020 09:5 6:00 AM EDT completed eCW1 ([facility]) COVID-19 dose #1 given elsewhere Unspecified 05/21/2020 09:5 6:00 AM EDT completed eCW1 ([facility]) COVID-19 dose #1 given elsewhere Unspecified 05/21/2020 09:5 6:00 AM EDT completed eCW1 ([facility]) COVID-19 dose #1 given elsewhere Unspecified 05/21/2020 09:5 6:00 AM EDT completed eCW1 ([facility]) COVID-19 dose #1 given elsewhere Unspecified 05/21/2020 09:5 6:00 AM EDT completed eCW1 ([facility]) COVID-19 dose #1 given elsewhere Unspecified 05/21/2020 09:5 6:00 AM EDT completed eCW1 ([facility]) COVID-19 dose #1 given elsewhere Unspecified 05/21/2020 09:5 6:00 AM EDT completed eCW1 ([facility]) COVID-19 VACCINE Pfizer 05/21/2020 12:00:00 AM EDT completed [employer] Vaccine Series Complete: NOThis Data was Submitted to [facility] Via [employer]. Medications Medication Brand Name Start Date Product Form Dose Route Admi nistrative Instructions Pharmacy Instructions Status Indications Reaction Description Data Source(s) Azelastine HCL (Nasal) Azelastine HCL (Nasal) 01/15/2021 12:00:[address] active MEDENT ([facility], ) Allergy Injection 2 Or More 01/03/2021 12:00:00 AM EDT completed [facility] Medication administered onsite POLYETHYLENE GLYCOL 3350 142 MG/ML Oral Solution [Miralax] M iralax 12/12/2020 12:00:00 AM EDT active EDENT ([facility], ) Bisacodyl 5 MG Delayed Release Oral Tablet [Dulcolax] Dulcol ax 12/12/2020 12:00:00 AM EDT ORAL active EDENT ([facility], ) POLYETHYLENE GLYCOL 3350 142 MG/ML Oral Solution [Miralax] M iralax 12/12/2020 12:00:00 AM EDT ORAL active EDENT ([facility], ) doxycycline hyclate 100 MG Oral Tablet Doxycycline Hyc late 100 MG Doxycycline Hyclate 100 MG 11/29/2020 12:00:00 AM EDT 1.0 {tablet} active Doxycycline Hyclate 100 MG eCW1 ([facility]) doxycycline hyclate 100 MG Oral Tablet Doxycycline Hyc late 100 MG Doxycycline Hyclate 100 MG 11/29/2020 12:00:00 AM EDT 1.0 {tablet} active Doxycycline Hyclate 100 MG eCW1 ([facility]) doxycycline hyclate 100 MG Oral Tablet Doxycycline Hyc late 100 MG Doxycycline Hyclate 100 MG 11/29/2020 12:00:00 AM EDT 1.0 {tablet} active Doxycycline Hyclate 100 MG eCW1 ([facility]) Ciprofloxacin 3 MG/ML Ophthalmic Solution Ciprofloxaci n HCl 0.3 % Ciprofloxacin HCl 0.3 % 11/29/2020 12:00:00 AM EDT active Ciprofloxacin HCl 0.3 % eCW1 ([facility]) Ciprofloxacin 3 MG/ML Ophthalmic Solution Ciprofloxaci n HCl 0.3 % Ciprofloxacin HCl 0.3 % 11/29/2020 12:00:00 AM EDT active Ciprofloxacin HCl 0.3 % eCW1 ([facility]) Ciprofloxacin 3 MG/ML Ophthalmic Solution Ciprofloxaci n HCl 0.3 % Ciprofloxacin HCl 0.3 % 11/29/2020 12:00:00 AM EDT active Ciprofloxacin HCl 0.3 % eCW1 ([facility]) doxycycline hyclate 100 MG Oral Tablet Doxycycline Hyc late 100 MG Doxycycline Hyclate 100 MG 11/29/2020 12:00:00 AM EDT 1.0 {tablet} active Doxycycline Hyclate 100 MG eCW1 ([facility]) Ciprofloxacin 3 MG/ML Ophthalmic Solution Ciprofloxaci n HCl 0.3 % Ciprofloxacin HCl 0.3 % 11/29/2020 12:00:00 AM EDT active Ciprofloxacin HCl 0.3 % eCW1 ([facility]) Aspirin 81 MG Delayed Release Oral Tablet Aspirin EC 81 MG A spirin EC 81 MG 10/24/2020 12:00:00 AM EDT 1.0 {tablet} active Aspirin EC 81 MG eCW1 ([facility]) Aspirin 81 MG Delayed Release Oral Tablet Aspirin EC 81 MG A spirin EC 81 MG 10/24/2020 12:00:00 AM EDT 1.0 {tablet} active Aspirin EC 81 MG eCW1 ([facility]) Aspirin 81 MG Delayed Release Oral Tablet Aspirin EC 81 MG A spirin EC 81 MG 10/24/2020 12:00:00 AM EDT 1.0 {tablet} active Aspirin EC 81 MG eCW1 ([facility]) Aspirin 81 MG Delayed Release Oral Tablet Aspirin EC 81 MG A spirin EC 81 MG 10/24/2020 12:00:00 AM EDT 1.0 {tablet} active Aspirin EC 81 MG eCW1 ([facility]) Aspirin 81 MG Delayed Release Oral Tablet Aspirin EC 81 MG A spirin EC 81 MG 10/24/2020 12:00:00 AM EDT 1.0 {tablet} active Aspirin EC 81 MG eCW1 ([facility]) Aspirin 81 MG Delayed Release Oral Tablet Aspirin EC 81 MG A spirin EC 81 MG 10/24/2020 12:00:00 AM EDT 1.0 {tablet} active Aspirin EC 81 MG eCW1 ([facility]) Aspirin 81 MG Delayed Release Oral Tablet Aspirin EC 81 MG A spirin EC 81 MG 10/24/2020 12:00:00 AM EDT 1.0 {tablet} active Aspirin EC 81 MG eCW1 ([facility]) Aspirin 81 MG Delayed Release Oral Tablet Aspirin EC 81 MG A spirin EC 81 MG 10/24/2020 12:00:00 AM EDT 1.0 {tablet} active Aspirin EC 81 MG eCW1 ([facility]) Aspirin 81 MG Delayed Release Oral Tablet Aspirin EC 81 MG A spirin EC 81 MG 10/24/2020 12:00:00 AM EDT 1.0 {tablet} active Aspirin EC 81 MG eCW1 ([facility]) Nucala 100 MG/ML Subcutaneous Solution Auto-injector [id number] 08/31/2020 12:00:00 AM EDT active [facility] Vitamin B12 1000 MCG Vitamin B12 1000 MCG 08/23/2020 12:00:00 AM ED T 1.0 {tablet} active Vitamin B12 1000 MCG eC W1 ([facility]) Vitamin B12 1000 MCG Vitamin B12 1000 MCG 08/23/2020 12:00:00 AM ED T 1.0 {tablet} active Vitamin B12 1000 MCG eC W1 ([facility]) Vitamin B12 1000 MCG Vitamin B12 1000 MCG 08/23/2020 12:00:00 AM ED T 1.0 {tablet} active Vitamin B12 1000 MCG eC W1 ([facility]) Vitamin B12 1000 MCG Vitamin B12 1000 MCG 08/23/2020 12:00:00 AM ED T 1.0 {tablet} active Vitamin B12 1000 MCG eC W1 ([facility]) Vitamin B12 1000 MCG Vitamin B12 1000 MCG 08/23/2020 12:00:00 AM ED T 1.0 {tablet} active Vitamin B12 1000 MCG eC W1 ([facility]) Vitamin B12 1000 MCG Vitamin B12 1000 MCG 08/23/2020 12:00:00 AM ED T 1.0 {tablet} active Vitamin B12 1000 MCG eC W1 ([facility]) Vitamin B12 1000 MCG Vitamin B12 1000 MCG 08/23/2020 12:00:00 AM ED T 1.0 {tablet} active Vitamin B12 1000 MCG eC W1 ([facility]) Vitamin B12 1000 MCG Vitamin B12 1000 MCG 08/23/2020 12:00:00 AM ED T 1.0 {tablet} active Vitamin B12 1000 MCG eC W1 ([facility]) Vitamin B12 1000 MCG Vitamin B12 1000 MCG 08/23/2020 12:00:00 AM ED T 1.0 {tablet} active Vitamin B12 1000 MCG eC W1 ([facility]) Vitamin B12 1000 MCG Vitamin B12 1000 MCG 08/23/2020 12:00:00 AM ED T 1.0 {tablet} active Vitamin B12 1000 MCG eC W1 ([facility]) Vitamin B12 1000 MCG Vitamin B12 1000 MCG 08/23/2020 12:00:00 AM ED T 1.0 {tablet} active Vitamin B12 1000 MCG eC W1 ([facility]) Vitamin B 12 1 MG Extended Release Oral Tablet Vitamin B12 1000 MCG Oral Tablet Extended Release Vitamin B12 1000 MCG Oral Tablet Extended Release 08/02 12:00:00 AM EDT active 1 [facility] Vitamin B12 1000 MCG Vitamin B12 1000 MCG 08/23/2020 12:00:00 AM ED T 1.0 {tablet} active Vitamin B12 1000 MCG eC W1 ([facility]) Vitamin B12 1000 MCG Vitamin B12 1000 MCG 08/23/2020 12:00:00 AM ED T 1.0 {tablet} active Vitamin B12 1000 MCG eC W1 ([facility]) Vitamin B12 1000 MCG Vitamin B12 1000 MCG 08/23/2020 12:00:00 AM ED T 1.0 {tablet} active Vitamin B12 1000 MCG eC W1 ([facility]) Vitamin B12 1000 MCG Vitamin B12 1000 MCG 08/23/2020 12:00:00 AM ED T 1.0 {tablet} active Vitamin B12 1000 MCG eC W1 ([facility]) 60 ACTUAT Fluticasone propionate 0.1 MG/ ACTUAT / salmeterol 0.05 MG/ACTUAT Dry Powder Inhaler Fluticasone-Salmeterol 100-50 MCG/DOSE Inhalation Aerosol Powder Breath Activated (ADVAIR) Fluticasone-Salmeterol 100-50 MCG/DOSE I nhalation Aerosol Powder Breath Activated (ADVAIR) 08/10/2020 12:00:00 AM EDT active INHALE 1 DOSE BY MOUTH TWICE [facility] Pravastatin Sodium 40 MG Oral Tablet Pra vastatin Sodium 40 MG Oral Tablet (PRAVACHOL) Pravastatin Sodium 40 MG Oral Tablet (PRAVACHOL) 08/07 12:00:00 AM EDT 40 mg Oral active Take 40 mg by mo [facility] Cephalexin 500 MG Oral Capsule Cephalexin 500 MG 08/04/2020 12:00:00 AM EDT active Cephalexin 500 MG eC W1 ([facility]) Cephalexin 500 MG Oral Capsule Cephalexin 500 MG 08/04/2020 12:00:00 AM EDT active Cephalexin 500 MG eC W1 ([facility]) Cephalexin 500 MG Oral Capsule Cephalexin 500 MG 08/04/2020 12:00:00 AM EDT suspended Cephalexin 500 MG eC W1 ([facility]) Cephalexin 500 MG Oral Capsule Cephalexin 500 MG 08/04/2020 12:00:00 AM EDT active Cephalexin 500 MG eC W1 ([facility]) Cephalexin 500 MG Oral Capsule Cephalexin 500 MG 08/04/2020 12:00:00 AM EDT suspended Cephalexin 500 MG eC W1 ([facility]) Cephalexin 500 MG Oral Capsule Cephalexin 500 MG 08/04/2020 12:00:00 AM EDT active Cephalexin 500 MG eC W1 ([facility]) Cephalexin 500 MG Oral Capsule Cephalexin 500 MG 08/04/2020 12:00:00 AM EDT active Cephalexin 500 MG eC W1 ([facility]) Cephalexin 500 MG Oral Capsule Cephalexin 500 MG 08/04/2020 12:00:00 AM EDT suspended Cephalexin 500 MG eC W1 ([facility]) Omeprazole 40 MG Delayed Release Oral Capsule Omeprazole 08/03/2020 12:00:00 AM EDT ORAL active MEDENT (Lucia Hanley MD) sitagliptin 50 MG Oral Tablet [Januvia] Januvia 50 MG Oral Tablet Januvia 50 MG Oral Tablet 08/03/2020 12:00:00 AM EDT 50 mg Oral active Take 50 mg by mouth daily [facility] Amlodipine 10 MG Oral Tablet amLODIPine Besylate 10 MG Oral Tablet (NORVASC) amLODIPine Besylate 10 MG Oral Tablet (NORVASC) 07/12/2020 12:00:00 AM EDT 10 mg Oral active Take 10 mg by mouth [facility] Covid-19 vaccine, Unspecified 06/11/2020 12:00:00 AM EDT completed MEDENT ([facility], ) Medication administered onsite Covid-19 vaccine, Unspecified 05/21/2020 12:00:00 AM EDT completed MEDENT ([facility], ) Medication administered onsite Sodium Chloride 0.513 MEQ/ML Inhalant Solution Sodium Chlori de 05/11/2020 12:00:00 AM EST active M EDENT ([facility], ) 60 ACTUAT Fluticasone propionate 0.1 MG/ ACTUAT / salmeterol 0.05 MG/ACTUAT Dry Powder Inhaler Fluticasone Propionate/Salmeterol Diskus 04/06/2020 12 :00:00 AM EST RESPIRATORY active MEDEN T ([facility], ) 24 HR Oxybutynin chloride 10 MG Extended Release Oral Tablet Oxybutynin Chloride ER 10 MG Oral Tablet Extended Release 24 Hour (DITROPAN-XL) Oxybutynin Chloride ER 10 MG Oral Tablet Extended Release 24 Hour (DITROPAN-XL) 03/19/2020 12:00:00 AM EST active [facility] Ibuprofen 600 MG Oral Tablet Ibuprofen 600 MG Oral Tab let (MOTRIN) Ibuprofen 600 MG Oral Tablet (MOTRIN) 01/19/2020 12:00:00 AM EST active TAKE 1 TABLET BY MOUTH THREE TIMES DAILY WITH FOOD OR MILK NEEDED [facility] Insurance Providers Payer name Policy type / Coverage type Policy ID Covered republican ID Covered republican's relationship to neal Policy Neal Plan Information MEDICARE [id number] SP [id number] A TODAYS OPTIONS [id number] SP [id number] MEDICARE COMPLETE [id number] SP [id number] MEDICARE COMPLETE [id number] SP [id number] MEDICAID [id number] SP [id number] WELLCARE [id number] SP [id number] [facility] MEDICARE COMPLETE G [id number] Self [id number] MEDICARE COMPLETE [id number] SP [id number] MEDICAID [id number] Self [id number] MEDICARE COMPLETE-UHC O [id number] S [id number] MEDICAID [id number] S [id number] MEDICARE COMPLETE-UHC O [id number] S [id number] MEDICAID [id number] SP [id number] ANSI-Medicare Part B [id number] ANSI-Medicare Part B [id number] ANS-Medicaid [id number] ANS-Medicaid [id number] ANSI-Medicare Part B [id number] ANSI-Medicare Part B [id number] [facility] [id number] ANSI-Medicare Part B [id number] ANSI-Medicaid [id number] ANSI-Medicare Part B [id number] Medicaid [facility] Part B [id number] Self [id number] Today's [facility] Medicare Commercial [id number] Self [id number] [facility] Medicare Commercial [id number] Self [id number] ANSI-Medicare Part B [id number] ANSI-Medicare Part B [id number] ANSI-Medicaid [id number] ANSI-Medicare Part B [id number] ANSI-Medicaid [id number] ANSI-Medicare Part B [id number] ANSI-Medicare Part B [id number] ANSI-Medicaid [id number] ANSI-Medicare Part B [id number] UNITED HEALTH MEDICARE [id number] S [id number] MEDICARE [id number] SP [id number] A TODAYS OPTIONS [id number] SP [id number] Medicaid [place] Medigap Part B [id number] Self [id number] Today's Options Medicare Commercial [id number] Self [id number] Medicaid [place] Medigap Part B [id number] Self [id number] [place] [id number] [place] [id number] ANSI-Medicaid [id number] ANSI-Medicare Part B [id number] Medicaid [place] Medigap Part B [id number] Self [id number] Medicaid [id number] Medicaid [id number] Todays Options/Am Prog [id number] Med icare Part B [id number] MEDICAID -O/P EMERGENCY ROOM [id number] 18 [id number] TODAYS OPTION -O/P [id number] 18 [id number] MEDICARE [id number] [facility] [id number] Self [id number] [facility] [id number] Self [id number] [employer] OPTIONS/[place] O [id number] O [id number] [place] Med[place]ap Part B [id number] Self [id number] [place] [id number] Self [id number] [place] [id number] Self [id number] [place] [id number] Self [id number] [facility] [id number] Self [id number] [employer] OPTIONS/[place] O [id number] S [id number] MEDICAID-O/P [id number] MEDICAID-PHYSICIAN [id number] MEDICAID-I/P [id number] V TODAY OPTION-I/P [id number] 18 [id number] [facility] OPTION -O/P [id number] 18 1 [id number] MEDICARE COMPLETE [id number] SP [id number] MEDICARE COMPLETE [id number] SP [id number] [facility] MEDICAID [id number] SP [id number] [facility] MEDICARE COMPLETE - O/P [id number] 18 [id number] [facility] MEDICARE COMPLETE - O/P [id number] 18 [id number] MEDICAID [id number] S [id number] [facility] MEDICARE [id number] S [id number] MEDICARE [id number] SP [id number] [id number] SP [id number] Problems, Conditions, and Diagnoses Code Display Name Description Problem Type Effective Dates Data Source(s) U40972 Personal history of nicotine dependence Personal history of nicotine dependence Diagnosis 11/20/2020 12:35:00 PM EDT [facility] Z6832 Body mass index [BMI] 32.0-32.9, adult B scarlett mass index [BMI] 32.0-32.9, adult Diagnosis 11/20/2020 12:35:00 PM EDT [facility] E119 Type 2 diabetes mellitus without complic ations Type 2 diabetes mellitus without complications Diagnosis 11/20/2020 12:35:00 PM EDT [facility] E669 Obesity, unspecified Obesity, unspecified Diagnosis 11/20/2020 12:35:00 PM EDT [facility] I10 Essential (primary) hypertension Essential (primary) h ypertension Diagnosis 11/20/2020 12:35:00 PM EDT [facility] J0100 Acute maxillary sinusitis, unspecified A cute maxillary sinusitis, unspecified Diagnosis 11/20/2020 12:35:00 PM EDT [facility] R05 Cough Cough Diagnosis 11/20/2020 12:35:00 PM ED T [facility] Y[address] or not applicable Unspecified place or not applicable Diagnosis 10/12/2020 02:09:00 PM EDT [facility] [id number] Bitten or stung by nonvenomo us insect and other nonvenomous arthropods, initial encounter Bitten or stung by nonvenomous insect an d other nonvenomous arthropods, initial encounter Diagnosis 10/12/2020 02:09:00 PM EDT [facility] Z7984 jail (current) use of oral hypoglyc emic drugs jail (current) use of oral hypoglycemic drugs Diagnosis 10/12/2020 02:09:00 PM EDT [facility] [id number] Allergy, unspecified, initial encounter Allergy, unspecified, initial encounter Diagnosis 10/12/2020 02:09:00 PM EDT [facility] D47748 Cellulitis of left upper limb Cellulitis of left upper limb Diagnosis 10/12/2020 02:09:00 PM EDT [facility] [id number] Insect bite (nonvenomous) of left upper arm, initial encounter Insect bite (nonvenomous) of left upper arm, initial encounter Diagnosis 10/12/2020 02:09:00 PM EDT [facility] R21 Rash and other nonspecific skin eruption Rash and other nonspecific skin eruption Diagnosis 10/12/2020 02:09:00 PM EDT [facility] Z79.899 Other halfway (current) drug therapy O THER USP (CURRENT) DRUG THERAPY Diagnosis 08/28/2020 03:36:00 PM EDT [facility] D72.18 EOSINOPHILIA IN DISEASES CLASSIFIED ELSE WHERE EOSINOPHILIA IN DISEASES CLASSIFIED ELSEWHERE Diagnosis 08/28/2020 03:36:00 PM EDT [facility] 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 [Borrego rg-Marialuisa] POLYARTERITIS WITH LUNG INVOLVEMENT [CHURG-MARIALUISA] Diagnosis 08/28/2020 03:36:00 PM EDT [facility] J47.9 Bronchiectasis, uncomplicated BRONCHIECTASIS, UNCOMPLI CATED Diagnosis 08/28/2020 03:36:00 PM EDT [facility] J84.9 Interstitial pulmonary disease, unspecif ied INTERSTITIAL PULMONARY DISEASE, UNSPECIFIED Diagnosis 08/28/2020 03:36:00 PM EDT [facility] Z51.81 Encounter for therapeutic drug level mon itoring ENCOUNTER FOR THERAPEUTIC DRUG LEVEL MONITORING Diagnosis 04/17/2020 02:56:00 PM EST [facility] 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, sacral and sacrococc ygeal region Problem 12/28/2020 12:00:00 AM EDT eCW1 ([facility]) H04.123 [id number] Dry eyes Problem 10/24/2020 12:00:00 AM ED T eCW1 ([facility]) N20.0 Kidney stone Bilateral renal stones Problem 09/15/2020 12:00:00 AM EDT eCW1 ([facility]) K21.9 [id number] Gastroesophageal ref lux disease, unspecified whether esophagitis present Problem 08/22/2020 12:00:00 AM EDT eCW1 ([facility]) M15.9 Osteoarthritis Osteoarthritis invol ving multiple joints on both sides of body Problem 08/22/2020 12:00:00 AM EDT eCW1 ([facility]) M30.1 [id number] Polyarteritis with lung involvement [Chur g-Marialuisa] Problem 08/22/2020 12:00:00 AM EDT eCW1 ([facility]) E11.9 Diabetes mellitus without complication D iabetes mellitus without complication Problem 08/22/2020 12:00:00 AM EDT eCW1 ([facility]) E55.9 Vitamin D deficiency Vitamin D deficiency Problem 08/22/2020 12:00:00 AM EDT eCW1 ([facility]) I10 [id number] Essential hypertension Problem 08/22/2020 12 :00:00 AM EDT eCW1 ([facility]) E78.1 [id number] Hypertriglyceridemia Problem 08/22/2020 12:0 0:00 AM EDT eCW1 ([facility]) M47.812 [id number] 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lopathy, cervical region Problem 04/24/2020 12:00:00 AM EST eCW1 ([facility]) M47.813 [id number] 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lopathy, cervicothoracic region Problem 04/24/2020 12:00:00 AM EST eCW1 ([facility]) M47.812 [id number] Spondylosis, cervical Problem 04/07/2020 12: 00:00 AM EST eCW1 ([facility]) M47.816 [id number] 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lopathy, lumbar region Problem 12/20/2019 12:00:00 AM EDT eCW1 ([facility]) M47.817 [id number] 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lopathy, lumbosacral region Problem 12/20/2019 12:00:00 AM EDT eCW1 ([facility]) Surgeries/Procedures Procedure Description Date Indications Data Source(s) Spirometry 01/15/2021 12:00:00 AM FABIO CASAS ([facility], ) OFFICE OUTPATIENT VISIT 25 MINUTES 01/15/2021 12:00:00 AM EST DESTINEE ([facility], ) PROF SVCS ALLG IMMNTX X W/PRV ALLGIC XTRCS NJXS 2020 12:00:00 AM EDT MEDENT ([facility]) Pain Procedure Log 09/26/2020 12:00:00 AM EDT eCW1 ([facility]) Med: Lidocaine Jelly 2% 6ml Intravesically (Glydo) 09/15/2020 12:00:00 AM EDT eCW1 ([facility]) TOBACCO USE ASSESSED 09/15/2020 12:00:00 AM EDT eCW1 ([facility]) Unclassified drugs 09/11/2020 12:00:00 AM EDT eCW1 ([facility]) Completion of procedural visit when meets criteria 09/11/2020 12:00:00 AM EDT eCW1 ([facility]) Hospital outpatient clinic visit for assessment and ma nagement of a patient Hospital Outpatient Clinic Visit 08/28/2020 12:00:00 AM EDT [facility] OFFICE OUTPATIENT VISIT 25 MINUTES 08/10/2020 12:00:00 AM EDT MEDENT ([facility], ) OFFICE OUTPATIENT VISIT 15 MINUTES 08/03/2020 12:00:00 AM EDT MEDLINDA (Chet Hanley MD) [facility] Measurement Heart Rate, Oximet ry 07/27/2020 12:00:00 AM EDT MEDENT ([facility], ) Pain Procedure Log 05/09/2020 12:00:00 AM EST eCW1 ([facility]) OFFICE OUTPATIENT VISIT 15 MINUTES 05/03/2020 12:00:00 AM EST MEDENT (Chet Hanley MD) Unclassified drugs 04/24/2020 12:00:00 AM EST eCW1 ([facility]) Completion of procedural visit when meets criteria 04/24/2020 12:00:00 AM EST eCW1 ([facility]) COLLECTION VENOUS BLOOD VENIPUNCTURE ROUTINE VENIPUNCTURE 12:00:00 AM [facility] BLOOD COUNT COMPLETE AUTO&AUTO DIFRNTL WBC COUNT COMPLETE CB C W/AUTO DIFF WBC 04/17/2020 12:00:00 AM [facility] C-REACTIVE PROTEIN C-REACTIVE PROTEIN 04/17/2020 12:00:00 AM [facility] COMPREHENSIVE METABOLIC PANEL COMPREHEN METABOLIC PANEL 04/03 12:00:00 AM [facility] Pain Procedure Log 04/07/2020 12:00:00 AM EST eCW1 ([facility]) Spirometry 04/06/2020 12:00:00 AM EST M AUGUSTO ([facility], ) Plethysmography Determination Lung Volumes & Per Airway Resi st 04/06/2020 12:00:00 AM EST MEDENT ([facility] ) DIFFUSING CAPACITY 04/06/2020 12:00:00 AM EST MEDENT ([facility], ) Pain Procedure Log 01/31/2020 12:00:00 AM EST eCW1 ([facility]) Unclassified drugs 01/17/2020 12:00:00 AM EST eCW1 ([facility]) Pain Procedure Log 01/03/2020 12:00:00 AM EST eCW1 ([facility]) Unclassified drugs 12/20/2019 12:00:00 AM EDT eCW1 ([facility]) Results ID Date Data Source [id number] 01/29/2021 10:00:00 AM EST [facility] Name Value Range Interpretation Code Description Data Nadia rce(s) Supporting Document(s) SARS-CoV-2 (COVID-19) RNA [Presence] in Respiratory specimen by TRAY with probe detection Not Detected [facility] This lab was ordered by [facility] and reported by [employer]. ID Date Data Source [id number] 01/15/2021 02:22:00 PM EST MEDENT ([facility], ) Name Value Range Interpretation Code Description Data Nadia rce(s) Supporting Document(s) PDFReport Laboratory test result MEDENT ([facility], ) FVC-Pre 3.02 L MEDENT ([facility]) FVC-Pred 4.15 L MEDENT ([facility]) FVC-LLN 3.22 L MEDENT ([facility]) FVC-%Pred-Pre 72 L MEDENT ([facility]) Fev1-Pred 2.99 L MEDENT ([facility]) Fev1-%Pred-Pre 84 L MEDENT ([facility]) Fev1-Pre 2.53 L MEDENT ([facility]) Fev1-LLN 2.20 L MEDENT ([facility]) Fev6-Pre 3.02 L MEDENT ([facility]) Fev6-Pred 3.89 L MEDENT ([facility]) Fev6-LLN 2.98 L MEDENT ([facility]) Fev6-%Pred-Pre 77 L MEDENT ([facility]) Elg0yxt-Pcpg 72 % MEDENT ([facility]) Ohv2pqq-Hif 84 % MEDENT ([facility]) Isl4jcv-%Pred-Pre 115 % MEDENT ([facility]) Cig8srh-Fhbt 94 % MEDENT ([facility]) Dbr1xkk-Abp 100 % MED[facility] ([facility]) Tkh7xdl-HCR 62 % MEDENT ([facility]) Tyq6ssq-%Pred-Pre 106 % MEDENT ([facility]) FEFMax-Pred 7.60 L/E/sec MEDENT ([facility]) FEFMax-%Pred-Pre 65 L/E/sec MEDENT ([facility]) FEFMax-Pre 5.00 L/E/sec MEDENT ([facility]) FEFMax-LLN 5.28 L/E/sec MEDENT ([facility]) Oxa1761-Obl 3.38 L/E/sec MEDENT ([facility]) Muy8250-Qdyd 2.12 L/E/sec MEDENT ([facility]) ExpTime-Pre 5.70 sec MEDENT ([facility]) Ysy4098-%Pred-Pre 158 L/E/sec MEDENT ([facility]) Zyl8808-EOS 0.52 L/E/sec MEDENT ([facility]) Dvt7nod8-Ccyh 77 % MEDENT ([facility]) Vuj7uad6-Zjp 84 % MEDENT ([facility]) Hgy2umn1-%Pred-Pre 109 % MEDENT ([facility]) Jaa1kaf8-JEY 68 % MEDENT ([facility]) ID Date Data Source [id number] 11/29/2020 02:45:00 PM EDT [facility] Name Value Range Interpretation Code Description Data Nadia rce(s) Supporting Document(s) SARS COVID [facility]TIGEN NEGATIVE [facility] This [facility] was ordered by [facility] nd reported by [facility]. ID Date Data Source KOMAL COVID AG (Point of Care) 11/29/2020 12:00:00 AM EDT eC W1 ([facility]) Name Value Range Interpretation Code Description Data Nadia rce(s) Supporting Document(s) NEGATIVE NEGATIVE KOMAL COVID ANTIGEN eCW1 ([facility]) ID Date Data Source [id number] 11/21/2020 08:32:00 AM EDT [facility] [address] [place] [address] PHONE: [phone] FAX: [phone] Name .................. : ALAN López Acct Number.................. : [id number] ROOM. ................. : VT-04 Number ................... : [id number] Stay type ............. : E/R Discharge Date......... ... : 11/20/20 Admit Date ......... : 11/20/20 Admit Phys .................... : ROSANA CALLES Date of ....... : 1945 Family Phys ................... : BRYCE Phone .................. : [phone] Age ................................ : 75 Film# .................. .:[id number] Sex ................................. : M Unsigned transcriptions are preliminary reports and do not represent a medical or legal document CHEST 2 VIEWS [id number] COMPLETE:11/20/20 13:52 33943 Reason(s): Congestion FRONTAL AND LATERAL CHEST 2 VIEWS INDICATION: Congestion COMPARISON: 08/12/2018 FINDINGS: Mediastinal and hilar structures are normal. Cardiac silhouette is unremarkable. Right diaphragm is mildly elevated. Mild linear scarring both lower lobes unchanged. No acute consolidation. No pleural effusions or pneumothorax. Moderately extensive osteophytes thoracic spine. IMPRESSION: No acute disease. Electronically Reviewed and Signed By Aristeo Fleming MD , 11/21/20 08:32, AISHA Transcribe Initials: DZ , Transcribe Date: 11/20/20 18:32, Dictation Date: Copy for: BRYCE MUNOZ via modem Copy for: EMERGENCY DEPT via modem Copy for: 710 MED REC DISCHARGED Page 1 of 1 Name Value Range Interpretation Code Description Data Nadia rce(s) Supporting Document(s) ID Date Data Source [id number] 11/20/2020 12:35:00 PM EDT [facility] 1 OrderSheet [facility] Emergency Department [address] [place] [address] Phone #: ext- [phone] 11/20/2020 12:35 Patient: OWEN BRANCH Sex: M : 1945 Age: 75yWEIGHT:111.5 kg (S) HEIGHT:73 inches (S) BMI:32.4ALLERGIES: No Known Drug AllergyCHIEF COMPLAINT: cough, sinus pain, runny noseDIAGNOSIS: SinusitisLAB ORDERSOrder Description Priority Entered Acknowledged InitialedDIAGNOSTIC STUDY ORDERSOrder Description Priority Entered Acknowledged InitialedChest 2 View STAT 13:52 11/20/2020 13:53 [place]ak,(Oxygen?(No)) Delfina Wayne R.N., M.D.; Reason for Study: Congestion, CoughMEDICATION/IV/DRIP/FLUID ORDERSOrder Description Priority Entered Acknowledged InitialedTessalon Perles PO 13:53 11/20/2020 13:56 Sorbero,200 mg Turrin, Delfina Galindo R.N., M.D.;Amoxicillin 14:50 11/20/2020 14:53 Sorbero,Capsules PO 1000 Turrin, Delfina Disla M.D.;GENERAL ORDERSOrder Description Priority Entered Acknowledged Initialed[Electronically signed by Delfina Wayne M.D. (15:01 11/20/2020)][Electronically signed by Mateo Cid R.N. (:11/20/2020)][Electronically locked by Mateo Cid R.N. (11/20/2020)] Name Value Range Interpretation Code Description Data Nadia rce(s) Supporting Document(s) ID Date Data Source [id number] 11/20/2020 12:35:00 PM EDT [facility] 1 Medication Reconciliation Report [facility] Emergency Department [address] [place] [address] Phone #: [phone]- [phone] 11/20/2020 12:35 Patient: OWEN BRANCH Sex: M : 1945 Age: 75yWeight: 111.5 kgHeight/Length: 73 in.BMI: 32.4ALLERGIES: No Known Drug AllergyThe patient's Home Medications are listed below:CONTINUE TAKING THE FOLLOWING MEDICATIONS: AmLODIPine Besylate Oral (10 mg) 1 tablet, daily Gabapentin Oral (300 mg) 1 capsule, 3x a day Lisinopril Oral (20 mg) 1 tablet, 2x a day Omeprazole Oral (20 mg) 2 capsules, 2x a day Pravastatin Sodium Oral (40 mg) 1 tablet, dailyThe source(s) of the original Home Medication information:Not obtained.The following Medications were given to the patient in the Emergency Department:Tessalon Perles [PO] PO 200 mg, administered: 13:56 11/20/2020MOXICILLIN CAPSULES [PO] PO 1000 mg, administere d: 14:53 11/20/2020The following Medications were prescribed to the patient:amoxicillin 875 mg tablet Take 1 tablet twice a day for 10 days -- Dispense 20 tablet. Refills: 0.Substitution permitted.Pharmacy - [facility] [address] ; [place] [address]. .Tessalon Perles 100 mg capsule Take 1 capsule three times a day for 5 days -- Dispense 15 capsule.Refills: 1. Substitution permitted.Pharmacy - [facility] [id number] ; [place] [address]. Phone: [phone] Medication Reconciliation Report [facility] Emergency Department [address] [place] [address] Phone #: ext- [phone] 11/20/2020 12:35 [id number] Sex: [facility] : 1945 Age: [id number] . -- Delfina Wayne M.D. Name Value Range Interpretation Code Description Data Nadia rce(s) Supporting Document(s) ID Date Data Source [id number] 11/20/2020 12:35:00 PM EDT [facility] 1 Medication Administration Record [facility] Emergency Department [address] [place] [address] Phone #: [phone] ext- [phone] 11/20/2020 12:35 Patient: OWEN BRANCH Sex: M : 1945 Age: 75yWeight: 111.5 kgHeight/Length: 73 inBMI: 32.4ALLERGIES: No Known Drug Allergy Date/Time Medication Administered Medication OrderedGiven TESSALON PERLES [PO] Tessalon Perles PO 200 mg13:56 11/20/2020 (BENZONATATE)Mateo Cid REffieNEffie Dose: 200 mg Capsules POGiven AMOXICILLIN CAPSULES [PO] Amoxicillin Capsules PO 1000 mg14:53 11/20/2020 Dose: 1000 mg Capsules POSorbMateo wilkinson RCarolyne Name Value Range Interpretation Code Description Data Nadia rce(s) Supporting Document(s) ID Date Data Source [id number] 11/20/2020 12:35:00 PM EDT [facility] 1 General Instructions [facility] Emergency Department [address] [place] [address] Phone #: ext- [phone] 11/20/2020 12:35 Patient: OWEN BRANCH Sex: M : 1945 Age: 75yAcute maxillary sinusitis.INSTRUCTIONSDrink plenty of fluids.Warnings: Further evaluation is necessary. It is very important to follow up with a healthcare provider.GENERAL WARNINGS: Return or contact your physician immediately if your condition worsens orchanges unexpectedly, if not improving as expected, or if other problems arise. Specifically return if pain,vomiting, bleeding, breathing difficulty or fever greater than 102 degrees F and not controlled byacetaminophen or ibuprofen.Your Current Medications: Your current home medications have been reviewed.CONTINUE TAKING THE FOLLOWING MEDICATIONS:AmLODIPine Besylate Oral : Tablet 10 mg, 1 tablet daily.Gabapentin Oral : Capsule 300 mg, 1 capsule 3x a day.Lisinopril Oral : Tablet 20 mg, 1 tablet 2x a day.Omeprazole Oral : Capsule Delayed Release 20 mg, 2 capsules 2x a day.Pravastatin Sodium Oral : Tablet 40 mg, 1 tablet daily.Prescription Medications:amoxicillin 875 mg tablet Take 1 tablet twice a day for 10 days -- Dispense 20 tablet. Refills: 0.Substitution permitted.Pharmacy [facility] [address] ; [place] [address]. .Tessalon Perles 100 mg capsule Take 1 capsule three times a day for 5 days -- Dispense 15 capsule.Refills: 1. Substitution permitted.Pharmacy - [facility] [id number] ; [place] [address]. .Follow-up:Return to the emergency department as needed. Follow up with your healthcare provider in three days ifnot better. Call for an appointment. Reason for referral: evaluation and treatment. Summary of careprovided to patient via paper.Understanding of the discharge instructions verbalized by patient. Expected course of illness, dischargeinstructions, activity level, diet, prescriptions x2, follow-up appointment and risks and benefits of treatment 2 General Instructions [facility] Emergency Department [address] [place] [address] Phone #: ext- [phone] 11/20/2020 12:35 Patient: OWEN BRANCH Sex: M : 1945 Age: 75yreviewed. ADDITIONAL INFORMATIONSinusitis (Antibiotic Treatment)The sinuses are air-filled spaces within the bones of the face. They connect to the inside of thenose. Sinusitis is an inflammation of the tissue that lines the sinuses. Sinusitis can occur during acold. It can also happen due to allergies to pollens and other particles in the air. Sinusitis can causesymptoms of sinus congestion and a feeling of fullness. A sinus infection causes fever, headache,and facial pain. There is often green or yellow fluid draining from the nose or into the back of thethroat (post-nasal drip). You have been given antibiotics to treat this condition.Home care Take the full course of antibiotics as instructed. Don't stop taking them, even when you feel better. Drink plenty of water, hot tea, and other liquids as directed by the healthcare provider. This may help thin nasal mucus. It also may help your sinuses drain fluids. Heat may help soothe painful areas of your face. Use a towel soaked in hot water. Or, loom winder tender the shower and direct the warm spray onto your face. Using a vaporizer along with a menthol rub at night may also help soothe symptoms. 3 General Instructions [facility] Emergency Department [address] [place] [address] Phone #: ext- [phone] 11/20/2020 12:35 --- Patient: OWEN BRANCH Sex: M : 1945 Age: 75y An expectorant with guaifenesin may help thin nasal mucus and help your sinuses drain fluids. Talk with your provider or pharmacists before taking an uyzp-zec-fdlsrss (OTC) medicine if you have any questions about it or its side effects.. You can use an OTC decongestant, unless a similar medicine was prescribed to you. Nasal sprays work the fastest. Use one that contains phenylephrine or oxymetazoline. First blow your nose gently. Then use the spray. Don't use these medicines more often than directed on the label. If you do, your symptoms may get worse. You may also take pills that contain pseudoephedrine. Don't use products that combine multiple medicines. This is because side effects may be increased. Read labels. You can also ask the pha rmacist for help. (People with high blood pressure should not use decongestants. They can raise blood pressure.) Talk with your provider or pharmacist if you have any questions about the medicine.. OTC antihistamines may help if allergies contributed to your sinusitis. Talk with your provider or pharmacist if you have any questions about the medicine.. Don't use nasal rinses or irrigation during an acute sinus infection, unless your healthcare provider tells you to. Rinsing may spread the infection to other areas in your sinuses. Use acetaminophen or ibuprofen to control pain, unless another pain medicine was prescribed to you. If you have chronic liver or kidney disease or ever had a stomach ulcer, talk with your healthcare provider before using these medicines. Never give aspirin to anyone under age 18 who is ill with a fever. It may cause severe liver damage. Don't smoke. This can make symptoms worse.Follow-up careFollow up with your healthcare provider, or as advised.When to seek medical adviceCall your healthcare provider if any of these occur: Facial pain or headache that gets worse Stiff neck Unusual drowsiness or confusion Swelling of your forehead or eyelids Symptoms don't go away in 10 days Vision problems, such as blurred or double vision Fever of 100.4F (38C) or higher, or as directed by your healthcare provider 4 General Instructions [facility] Emergency Department [address] [place] [address] Phone #: ext- [phone] 11/20/2020 12:35 [id number] Sex[facility] M : 1945 Age: 75yCall 911Call 911 if any of these occur: Seizure Trouble breathing Feeling dizzy or faint Fingernails, skin or lips look blue, purple , or grayPreventionHere are steps you can take to help prevent an infection: Keep good hand washing habits. Don't have close contact with people who have sore throats, colds, or other upper respiratory infections. Don't smoke, and stay away from secondhand smoke. Stay up to date with of your vaccines. [id number] [employer]. [address] [place] [address]. All rights reserved. This information is not intended as asubstitute for professional medical care. Always follow your healthcare professional's instructions. You have been given the following additional information: Sinusitis (Antibiotic Treatment)(Electronically signed by Delfina Wayne M.D. 11/20/2020 15:01) Name Value Range Interpretation Code Description Data Nadia rce(s) Supporting Document(s) ID Date Data Source [id number] 11/20/2020 12:35:00 PM EDT [facility] 1 Clinical Report - Nurses [facility] Emergency Department [address] [place] [address] Phone #: [phone] xsw- [phone] 11/20/2020 12:35 Patient: OWEN BRANCH Sex: M : 1945 Age: 75yTRIAGEArrived by private vehicle. Historian: patient. Unaccompanied. ( last night he states he had troublebreath nasal congestion).Acuity: LEVEL 4.Chief Complaint: COUGH and BODY ACHES.Alert. No acute distress.Onset. (4 days ago). He has had chest congestion, sinus pain and a headache. 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 (0900).SEPSIS SCREEN: SIRS SCREEN NEGATIVE. SEPSIS SCREEN NEGATIVE. No suspected or confirmedsigns of infection present. --12:42 11/20/20 Carolina Garcia R.N.12:36 11/20/20. BP: 146/80. MAP: 102. HR: 72. RR: 18. O2 saturation: 94%. Temp: 97.8 F. Pain levelnow: 05/10. --12:42 11/20/20 Carolina Garcia R.N.Weight: 111.5 kg stated. Height/Length: 73 inches Per Pa tient. BMI: 32.4. --12:36 11/20/20 Carolina Garcia R.N.MedicationsAmLODIPine Besylate Oral (Tablet 10 mg) 1 tablet, daily. Gabapentin Oral (Capsule 300 mg) 1 capsule, 3x a day. Lisinopril Oral (Tablet 20 mg) 1 tablet, 2x a day. Omeprazole Oral (Capsule Delayed Release 20 mg) 2 capsules, 2x a day. Pravastatin Sodium Oral (Tablet 40 mg) 1 tablet, daily. --12:39 11/20/20 Carolina Garcia R.N.AllergiesNo Known Drug Allergy. --12:39 11/20/20 Carolina Garcia R.N.PROBLEMS:Diabetes Mellitus.Environmental Allergies.Cellulitis.Allergic Reaction.Pneumonia.Arthritis.Sinusitis.Hypertension. 2 Clinical Report - Nurses [facility] Emergency Department [address] [place] [address] Phone #: ext- [phone] 11/20/2020 12:35 Patient: OWEN BRANCH Sex: M : 1945 Age: 75y Gastroesophageal Reflux Disease. Hyperlipidemia. --12:39 11/20/20 Carolina Garcia R.N. ADDITIONAL SURGERIES: Cataract Surgery. Prostatectomy. --12:39 11/20/20 Carolina Garcia R.N. History PAST MEDICAL HX: Immunizations: up-to-date. SOCIAL HX: Smoker- current status unknown (quit 1970). No alcohol use or drug use. No recen t travel. No known contact with a sick individual. He was offered HIV testing but declined and hepatitis C testing but declined. He has not traveled outside the [place] Infectious disease exposure: No infectious disease exposure. The patient was not exposed to Coronavirus. (had had covid vaccine). Patient is not a known carrier of tuberculosis, hepatitis, HIV, MRSA or VRE. Patient is not a known carrier of CRE. SELF HARM ASSESSMENT: Self harm assessment was performed. The patient answered "no" to the question(s) "Have you recently felt down, depressed, or hopeless?" and "Do you have thoughts of harming or killing yourself?". ABUSE ASSESSMENT: Abuse assessment. Abuse denied. No suspicion of abuse. No report of abuse. NUTRITIONAL RISK ASSESSMENT: The nutritional risk assessment revealed no deficiencies. FUNCTIONAL ASSESSMENT: Functional assessment: no impairments noted. LEARNING NEEDS ASSESSMENT: The learning needs assessment revealed no barriers. FALL RISK ASSESSMENT: Fall risk assessment completed. No risk factors identified. SKIN INTEGRITY ASSESSMENT: Skin integrity risk assessment completed. No skin integrity risk identified. --12:42 11/20/20 Carolina Garcia R.N. Interventions Identification band on patient. To treatment room. --12:42 11/20/20 Carolina Garcia R.N. To treatment room. --13:11 11/20/20 Deloris Pool R.N.PHYSICAL [id number]:15 11/20/20. Ambulatory to room. Patient gowned.GENERAL / NEURO / PSYCH: Alert. Oriented X 4. Appears in no acute distress.HEENT: Mucous membranes are pink.RESPIRATORY: Respirations not labored. Chest nontender. Breath sounds within normal limits.CVS: Capillary refill less than 2 seconds. Pulses within normal limits. 3 Clinical Report - Nurses [facility] Emergency Department [address] [place] [address] Phone #: ext- [phone] 11/20/2020 12:35 Patient: OWEN BRANCH Sex: M : 1945 Age: 75y GI / : Abdomen soft and nontender and normal bowel sounds. SKIN: Skin intact. Skin is warm and dry. Normal skin turgor. --13:15 11/20/20 Mateo Cid R.N.NURSING PROGRESS NOTES13:39 11/20/20. Reassurance given. Two patient identifiers checked. Call light placed in reach. Bedplaced in lowest position. Brakes of bed on. --14:04 11/20/20 Mateo Cid R.N. 13:56 11/20 Tessalon Perles (Benzonatate) PO Capsules 200 mg given. Allergies verified and confirmed 5 rights. Information reviewed with patient including reason for taking this medication, signs of allergic reaction and precautions. Verbalizes understanding. --13:56 11/20/20 Mateo Cid R.N. 14:04 11/20/20. Patient walked back from radiology with data technical lead. --14:04 11/20/20 Mateo Cid R.N. Reassurance given. Two patient identifiers checked. Call light placed in reach. Bed placed in lowest position. Brakes of bed on. --14:11 11/20/20 Mateo Cid R.N. 14:53 11/20/2020 AMOXICILLIN CAPSULES PO Capsules 1000 mg given. Allergies verified and confirmed 5 rights. Information reviewed with patient including reason for taking this medication, signs of allergic reaction and precautions. Verbalizes understanding. --14:53 11/20/20 Mateo Cid R.N.DISPOSITION / DISCHARGE 14:54 11/20/20. BP: 130/70. MAP: 90. HR: 72. RR: 17. O2 saturation: 96%. Temp: 98.6 F. Pain level now: 0/10. --14:54 11/20/[address] data report analyst, OLIVERIO Hurtado Tech1.Locked/Released at 11/20/2020 21:29 by Mateo Cid R.N. Name Value Range Interpretation Code Description Data Nadia rce(s) Supporting Document(s) ID Date Data Source [id number] 11/20/2020 12:35:00 PM EDT [facility] 1 Clinical Report - Physicians/Mid Levels [facility] Emergency Department [address] [place] [address] Phone #: ext- [phone] 11/20/2020 12:35 Patient: OWEN BRANCH Sex: M : 1945 Age: 75y Time Seen: 13:16 11/20/2020; initial patient contact. Arrived- By private vehicle. Historian- patient. Disposition decision: 14:51 11/20/2020.HISTORY OF PRESENT ILLNESS Chief Complaint: COUGH and SINUS PAIN. RUNNY NOSE. This started 4 days ago and is still present. It has been intermittent. The illness is described as mild. The patient has had a mild cough productive of yellow sputum. He has had scant amounts of yellow sputum. No difficulty breathing, chest discomfort or pain, fever or chills. No sore throat, hoarseness or ear pain. He has had moderate nasal congestion, moderate sinus pressure . Associated symptoms include sinus drainage and mild muscle aches. He has had a moderate yellow nasal discharge. He has had moderate sinus drainage with sinus pressure. Additional history - No known contact with a sick individual. Similar symptoms previously. Patient has had similar symptoms occasionally. ( w sinusitis). Recent medical care: Not recently seen/assessed.REVIEW OF SYSTEMSThe patient has had a mild frontal headache. No eye discomfort, nausea, vomiting, diarrhea or abdominalpain. No hay fever, pedal edema, calf pain, difficulty with urination or skin rash. No enlarged lymphnodes, joint pain or tick bite. All other systems reviewed and are negative.PAST HISTORYSee nurses notes. Problems: Obesity. Pneumonia. Arthritis. Hypertension. Gastroesophageal Reflux Disease. Hyperlipidemia. Additional Surgeries: Cataract Surgery. Prostatectomy. Medications: AmLODIPine Besylate Oral (Tablet 10 mg) 1 tablet, daily. 2 Clinical Report - Physicians/Mid Levels [facility] Emergency Department [address] [place] [address] Phone #: ext- [phone] 11/20/2020 12:35 Patient: OWEN BRANCH Sex: M : 1945 Age: 75y Gabapentin Oral (Capsule 300 mg) 1 capsule, 3x a day. Lisinopril Oral (Tablet 20 mg) 1 tablet, 2x a day. Omeprazole Oral (Capsule Delayed Release 20 mg) 2 capsules, 2x a day. Pravastatin Sodium Oral (Tablet 40 mg) 1 tablet, daily. Allergies: No Known Drug Allergy.SOCIAL HISTORYFormer smoker, end date 1970. No alcohol use or drug use. No recent travel.ADDITIONAL NOTESThe nursing notes have been reviewed with agreement regarding the chief complaint, HPI, ROS, PMH andpatient medications and allergies.PHYSICAL EXAMVital Signs: 11/20/2020 12:36 BP: 146/80. MAP: 102. HR: 72. RR: 18. O2 saturation: 94%. Temp: 97.8 F.Pain level now: 05/10. Have been reviewed. Oxygen saturation normal.Appearance: Alert. No acute distress.Head: Tenderness present to percussion/palpation of the sinuses: mild right and left maxillary tenderness.Eyes: Pupils equal, round and reactive to light. Eyes normal inspection.ENT: Abnormal ear exam. (Fluid behind b/l TM's). Moderate, clear nasal discharge present. Pharynxnormal. Uvula midline.Neck: Normal inspection. Neck supple.CVS: Normal heart rhythm and rate. Heart sounds normal. Pulses normal.Respiratory: No respiratory distress. Painless inspiration. Breath sounds normal.Abdomen: Soft and nontender. No organomegaly. Mildly obese.Back: Normal inspection.Skin: Skin warm and dry. Normal skin color. No rash. Normal skin turgor.Extremities: Extremities exhibit normal ROM. No lower extremity edema.Neuro: Oriented X 3. No motor deficit. No sensory deficit.LABS, X-RAYS, AND EKGChest X-ray: No acute disease. Views: PA and lateral. Technique: good. The X-rays were interpretedby the radiologist. Interpretation time: 14:17 11/20/2020.Laboratory Tests: Laboratory tests have been ordered, with results reviewed and considered in themedical decision making process.PROGRESS AND PROCEDURESCourse of Care: 14:50 11/20/20. CXR results nml, pt has clinical sinusitis, will treat w amoxicillin andtessalon, and d/c w instructions, pt understands and agrees. Patient counseled in person regarding the patient's stable condition, test results, diagnosis and need for follow-up. Patient agrees with plan of care. 3 Clinical Report - Physicians/Mid Levels [facility] Emergency Department [address] [place] [address] Phone #: ext- [phone] 11/20/2020 12:35 [id number] Sex[facility] M : 1945 Age: 75y Disposition: Condition: good and stable. Discharge decision based on the following: patient's condition is stable; patient's condition is improved; patient is ambulatory; patient is active; patient drinking fluids; patient eating; patient's pain is controlled; patient's exam is improved; no abnormal test results; improving condition on repeat evaluation; social support is good; transportation is available; follow-up is available; clinical impression is consistent with outpatient treatment.CLINICAL IMPRESSION Acute maxillary sinusitis.INSTRUCTIONS Drink plenty of fluids. Warnings: Further evaluation is necessary. It is very important to follow up with a healthcare provider. GENERAL WARNINGS: Return or contact your physician immediately if your condition worsens or changes unexpectedly, if not improving as expected, or if other problems arise. Specifically return if pain, vomiting, bleeding, breathing difficulty or fever greater than 102 degrees F and not controlled by acetaminophen or ibuprofen. Your Current Medications: Your current home medications have been reviewed. CONTINUE TAKING THE FOLLOWING MEDICATIONS: AmLODIPine Besylate Oral : Tablet 10 mg, 1 tablet daily. Gabapentin Oral : Capsule 300 mg, 1 capsule 3x a day. Lisinopril Oral : Tablet 20 mg, 1 tablet 2x a day. Omeprazole Oral : Capsule Delayed Release 20 mg, 2 capsules 2x a day. Pravastatin Sodium Oral : Tablet 40 mg, 1 tablet daily. Prescription Medications: amoxicillin 875 mg tablet Take 1 tablet twice a day for 10 days -- Dispense 20 tablet. Refills: 0. Substitution permitted. Pharmacy - [facility] [address] ; [place] [address]. . Tessalon Perles 100 mg capsule Take 1 capsule three times a day for 5 days -- Dispense 15 capsule. Refills: 1. Substitution permitted. Pharmacy - [facility] [id number] ; [place] [address]. . Follow-up: Return to the emergency department as needed. Follow up with your healthcare provider in three days if 4 Clinical Report - Physicians/Mid Levels [facility] Emergency Department [address] [place] [address] Phone #: ext- [phone] 11/20/2020 12:35 Patient: OWEN BRANCH Sex: M : 1945 Age: 75y not better. Call for an appointment. Reason for referral: evaluation and treatment. Summary of care provided to patient via paper. Understanding of the discharge instructions verbalized by patient. Expected course of illness, discharge instructions, activity level, diet, prescriptions x2, follow-up appointment and risks and benefits of treatment reviewed.(Electronically signed by Delfina Wayne M.D. 11/20/2020 15:01) Name Value Range Interpretation Code Description Data Nadia rce(s) Supporting Document(s) ID Date Data Source [id number] 10/12/2020 02:09:00 PM EDT [facility] 1 Medication Reconciliation Report [facility] Emergency Department [address] [place] [address] Phone #: ext- [phone] 10/12/2020 14:09 Patient: OWEN BRANCH Sex: M : 1945 Age: 75yWeight: 110.6 kgHeight/Length: 72 in.BMI: 33.1ALLERGIES: No Known Drug AllergyThe patient's Home Medications are listed below:THE FOLLOWING MEDICATIONS NEED TO BE RECONCILED: AmLODIPine Besylate Oral (10 mg) 1 tablet, daily Cymbalta Oral (30 mg) 2 capsules, daily Dymista Nasal (137-50 mcg/act) 1 drop, 2x a day Gabapentin Oral (300 mg) 1 capsule, 3x a day Januvia Oral (50 mg) 1 tablet, daily Lisinopril Oral (20 mg) 1 tablet, daily Omeprazole Oral (20 mg) 1 capsule, daily Pravastatin Sodium Oral (40 mg) 1 tablet, daily Simply Saline Nasal (0.9 %), 3x a day Singulair Oral (10 mg) 1 tablet, daily TraMADol HCl Oral (50 mg) 1 tablet, dailyThe source(s) of the original Home Medication information:patientThe following Medications were given to the patient in the Emergency Department:None. 2 Medication Reconciliation Report [facility] Emergency Department [address] [place] [address] Phone #: ext- [phone] 10/12/2020 14:09 Patient: OWEN BRANCH Sex: M : 1945 Age: 75yThe following Medications were prescribed to the patient:cephalexin 500 mg capsule Take 1 capsule three times a day for 7 days -- Dispense 21 capsule.Refills: 0. Substitution permitted.Pharmacy - [facility] [phone] ; [place] [address]. . -- Jerrell Conner P.A.-C Name Value Range Interpretation Code Description Data Nadia rce(s) Supporting Document(s) ID Date Data Source [id number] 10/12/2020 02:09:00 PM EDT [facility] 1 Medication Administration Record [facility] Emergency Department [address] [place] [address] Phone #: ext- [phone] 10/12/2020 14:09 Patient: OWEN BRANCH Sex: M : 1945 Age: 75yWeight: 110.6 kgHeight/Length: 72 inBMI: 33.1ALLERGIES: No Known Drug AllergyDate/Time Medication Administered Medication Ordered Name Value Range Interpretation Code Description Data Nadia rce(s) Supporting Document(s) ID Date Data Source [id number] 10/12/2020 02:09:00 PM EDT [facility] 1 General Instructions [facility] Emergency Department [address] [place] [address] Phone #: ext [phone] 10/12/2020 14:09 Patient: OWEN BRANCH Sex: M : 1945 Age: 75yLocalized allergic reaction with skin rash secondary to insect and unknown and of unknown cause.Cellulitis of the left upper arm.INSTRUCTIONSTake Tylenol (Acetaminophen) or Motrin (Ibuprofen) as needed for fever control. Take medicationaccording to label instructions.No dietary restrictions.(Recommend to utilize OTC Motrin and Tylenol to control inflammation and pain management.Recommend to follow the instructions on the bottle and not to exceed. Recommend Benadryl as well.).Warnings: Further evaluation is necessary.GENERAL WARNINGS: Return or contact your physician immediately if your condition worsens orchanges unexpectedly, if not improving as expected, or if other problems arise.Prescription Medications:cephalexin 500 mg capsule Take 1 capsule three times a day for 7 days -- Dispense 21 capsule.Refills: 0. Substitution permitted.Pharmacy - [facility] [phone] ; [place] [address]. .Follow-up:Return to the emergency department as needed. Follow up with your healthcare provider in about twodays if not better. Call for an appointment.Understanding of the discharge instructions verbalized by patient. ADDITIONAL INFORMATIONGeneral Allergic ReactionsAn allergic reaction is a set of symptoms caused by an allergen. An allergen is something that causesyour immune system to react abnormally. It releases various chemicals. These include histamine.Histamine causes swelling and itching. An allergic reaction may affect the entire body. This is called ageneral allergic reaction. Often symptoms affect only one part of the body. This is called a localallergic reaction. 2 General Instructions [facility] Emergency Department [address] [place] [address] Phone #: ext- [phone] 10/12/2020 14:09 Patient: OWEN BRANCH Sex: M : 1945 Age: 75yYou are having an allergic reaction. Almost anything can cause one. Different people are allergic todifferent things. It is usually something that you ate or swallowed, came into contact with by getting orputting it on your skin or clothes, or something you breathed in the air. This can be very annoying andsometimes scary.Most people think of allergic reactions when they have a rash or itchy skin. Other symptoms caninclude: Itching of the eyes, nose, and roof of the mouth Runny or stuffy nose Watery eyes Sneezing or coughing A blocked feeling in the ear Red, raised, itchy rash called hives Red and purple spots Rash, redness, welts, blisters Itching, burning, sting ing, pain Dry, flaky, cracking, scaly skinSevere symptoms include: Swelling of the face, lips, or other parts of the body Hoarse voice Trouble swallowing, feeling like your throat is closing Trouble breathing, wheezing Nausea, vomiting, diarrhea, stomach cramps Feeling faint or lightheaded, rapid heart rateSometimes the cause may be obvious. But there are so many things that can cause a reaction thatyou may not be able to figure it out. The most important things to help find your allergen are toremember: When it started What you were doing at the time or just before that 3 General Instructions [facility] Emergency Department [address] [place] [address] Phone #: ext- [phone] 10/12/2020 14:09 Patient: OWEN BRANCH Sex: M : 1945 Age: 75y What activities you were involved in If you were exposed to anything newBelow are some common causes of allergies. Some of these can cause severe general allergicreactions. Others can cause mild to moderate symptoms. But remember that almost anything cancause a reaction. You may not even be aware that you came into contact with one of these things: Dust, mold, pollen Plants (common ones are poison jeb and poison oak, but there are many others) Animals Foods such as shrimp, shellfish, peanuts, milk products, gluten, and eggs Food colorings, flavorings, and additives Insect bites or stings such as bees, mosquitoes, fleas, and ticks Medicines such as penicillin, sulfa medi cines, aspirin, and ibuprofen. But any medicine can cause a reaction. Jewelry such as nickel or gold. This can be new, or something you've worn for a while, including zippers and buttons. Latex such as in gloves, clothes, toys, balloons, or some tapes. Some people allergic to latex may also have problems with foods like bananas, avocados, kiwi, papaya, or chestnuts. Lotions, perfumes, cosmetics, soaps, shampoos, skincare products, nail products Chemicals or dyes in clothing, linen, package designer, hair dyes, soaps, iodineMany viruses and common colds can cause a rash that is not an allergic reaction. Sometimes it ishard to tell the difference between allergies, sensitivity, or an intolerance to something. This isespecially true with food. Many things can cause diarrhea, vomiting, stomach cramps, and skinirritation.Home care 4 General Instructions [facility] Emergency Department [address] [place] [address] Phone #: ext- [phone] 10/12/2020 14:09 Patient: OWEN BRANCH Sex: M : 1945 Age: 75yThe goal of treatment is to help relieve the symptoms and get you feeling better. The rash will usuallyfade over several days. But it can sometimes last a couple of weeks. Over the next couple of days,there may be times when it gets a little worse, and then better again. Here are some things to do: If you know what you are allergic to, stay away from it. Future exposures may cause similar or sometimes worse symptoms. Don't wear tight clothing and stay away from anything that heats up your skin such as hot showers or baths, and direct sunlight. Heat will make itching worse. An ice pack will relieve local areas of intense itching and redness. To make an ice pack, put ice cubes in a plastic bag that seals at the top. Wrap it in a thin, clean towel. Don't put the ice directly on the skin because it can damage the skin. Oral diphenhydramine is an bfnp-dps-ypoamxo antihistamine sold at pharmacies and grocery stores. Unless a prescription antihistamine was given, diphenhydramine may be used to reduce itching if large areas of the skin are involved. It may make you sleepy. So be careful using it in the daytime or when going to school, working, or driving. Note: Don't use diphenhydramine if you have glaucoma or if you are a man with trouble urinating because of an enlarged prostate. There are other antihistamines that won't make you so sleepy. These are good choices for daytime use. Ask your healthcare provider or pharmacist for suggestions. Don't use diphenhydramine cream on your skin unless prescribed. It may cause a worse reaction in some people. To help prevent an infection, don't scratch the affected area. Scratching may worsen the reaction and damage your skin. It can also lead to an infection. Always check the affected areas for signs of an infection. Call your healthcare provider and ask what you can use to help decrease the itching. To decrease your exposure to allergens, try the following: o Use heat-steam to clean your home. 5 General Instructions [facility] Emergency Department [address] [place] [address] Phone #: ext- [phone] 10/12/2020 14:09 Patient: OWEN BRANCH Sex: M : 1945 Age: 75y o Use high-efficiency particulate (HEPA) vacuums and filters. o Stay away from food and pet triggers. o Kill any cockroaches and use pest control to keep further infestations from happening. o Clean your house often.Follow-up careFollow up with your healthcare provider, or as advised. If you had a severe reaction today, or if youhave had several mild to medium allergic reactions in the past, ask your provider about allergytesting. This can help you find out what you are allergic to. If you had a severe reaction that includeddizziness, fainting, or trouble breathing or swallowing, ask your provider about carryingauto-injectable epinephrine.Call [phone] if any of these occur: Trouble breathing or swallowing, wheezing Cool, moist, pale skin Shortness of breath Hoarse voice or trouble speaking Confusion Very drowsy or trouble awakening Fainting or loss of consciousness Rapid heart rate Feeling of dizziness or weakness or a sudden drop in blood pressure Feeling of doom Feeling lightheaded Severe nausea or vomiting, or diarrhea Seizure Swelling in the face, eyelids, lips, mouth, throat, or tongue Drooling 6 General Instructions [facility] Emergency Department [address] [place] [address] Phone #: ext- [phone] 10/12/2020 14:09 Patient: OWEN BRANCH Sex: M : 1945 Age: 75yWhen to seek medical adviceCall your healthcare provider or get medical care right away if any of these occur: Spreading areas of itching, redness, or swelling Nausea or stomach cramps or abdominal pain Continuing or recurring symptoms Spreading areas of redness, swelling, or itching Signs of infection at the affected site: o Spreading redness o Increased pain or swelling o Fluid or colored drainage from the site o Fever of 100.4F (38C) or above lasting for 24 to 48 hours, or as directed by your provider [phone] [employer]. [address] [place] [address], [place] [address]. All rights reserved. This information is not intended as asubstitute for professional medical care. Always follow your healthcare professional's instructions.Insect Sting Allergy, GeneralizedYou are having an allergic reaction to an insect sting. This may occur after a sting by a wasp,honeybee, yellow jacket, fire ant, or other insect. This may cause an itchy rash and swelling in theface or other parts of the body. A more severe reaction may cause you to feel dizzy, faint, or havetrouble breathing or swallowing. Other warning signs are listed below.Symptoms can include: Rash, hives, redness, welts, or blisters in places other than the sting site Itching, burning, stinging, pain in places other than the sting site Dry, flaky, cracking, scaly skin Swelling in places other than the sting site Stomach pain or crampsMore severe symptoms are: Swelling of the face or lips or drooling Trouble swallowing, feeling like your throat is closing 7 General Instructions [facility] Emergency Department [address] [place] [address] Phone #: ext- [phone] 10/12/2020 14:09 Patient: OWEN BRANCH Sex: M : 1945 Age: 75y Trouble breathing, wheezing Dizziness or a sudden drop in blood pressure Hoarse voice or trouble speaking Severe nausea, vomiting, or diarrhea Feeling faint or lightheaded Rapid heart rateHome careMedicineThe healthcare provider may prescribe medicines to ease swelling, itching, and pain. Follow theprovider's instructions when taking these medicines. If you had a severe reaction, the provider may prescribe an injectable epinephrine kit. Epinephrine will stop the progression of an allergic reaction. Before you leave the hospital, be sure that you know when and how to use this medicine. Oral diphenhydramine is an fxes-jas-nrhelci antihistamine available at pharmacies and grocery stores. Unless a prescription antihistamine was given, diphenhydramine may be used to reduce itching if large areas of the skin are involved. It may make you sleepy. So be careful using it in the daytime or when going to school, working, or driving. Note: Don't use diphenhydramine if you have glaucoma or if you are a man with trouble urinating due to an enlarged prostate. There are other antihistamines that cause less drowsiness and are good choices for daytime use. Ask your healthcare provider or pharmacist for suggestions. Don't use diphenhydramine cream on your skin. It can cause a further reaction in some people. Calamine lotion or oatmeal baths sometimes help with itching. You may use acetaminophen or ibuprofen to control pain, unless another pain medicine was prescribed. Note: If you have chronic liver or kidney disease or ever had a stomach ulcer or gastrointestinal bleeding, talk with your provider before using these medicines.General care 8 General Instructions [facility] Emergency Department [address] [place] [address] Phone #: ext- [phone] 10/12/2020 14:09 Patient: OWEN BRANCH Sex: M : 1945 Age: 75yDon't wear tight clothing. And stay away from things that heat up your skin (such as hot showers orbaths, or direct sunlight). Heat makes the itching worse.An ice pack will relieve local areas of intense itching and redness. Apply 5 to 10 minutes. To make anice pack, put ice cubes in a plastic bag that seals at the top. Wrap the bag in a clean, thin towel orcloth. Don't put ice directly on the skin.StingsWasps, yellow jackets, and hornets don't leave a stinger b ehind. But if a honeybee stings you, astinger may stay in your skin. The stinger of a honeybee releases a substance that will attract otherbees to you. So try to move away from the nest right away. Once you are away from the nest, thentake out the stinger as quickly as possible by: Scraping the stinger out with the edge of a dull knife or plastic card (credit card). Don't use tweezers or your fingers to remove the stinger. That may squeeze more toxin from the stinger. Wash the affected area with soap and warm water 2 to 3 times a day. Don't break a blister, if there is one. Next apply an ice pack for 5 to 10 minutes. To make an ice pack, put ice cubes in a plastic bag that seals at the top. Wrap the bag in a clean, thin towel or cloth. Don't put ice directly on the skin. Contact your healthcare provider and ask what can be used to help decrease the swelling and itching to the affected area. To prevent an infection, don't scratch the affected areas. Always check the sting site for signs of an infection. These include increased redness, swelling, drainage, or pain.Preventing future reactions 9 General Instructions [facility] Emergency Department [address] [place] [address] Phone #: ext- [phone] 10/12/2020 14:09 Patient: OWEN BRANCH Sex: M : 1945 Age: 75yFuture reactions could be worse than this one. So try to stay away from situations where you mightbe stung: Don't walk in grass wearing sandals or without shoes. Don't leave food uncovered when eating outside. Sweet treats, watermelon, and ice cream attract insects. Don't drink from uncovered sweetened drinks in cans when outside. Insects are attracted to soda drink cans. They can sometimes crawl inside of them. Don't wear bright colored clothes with flowery prints and patterns when outside. Don't wear perfume when outside. Smell attracts insects. Wear long pants, long-sleeved shirts, socks, and work gloves when working outside. Be aware that honeybees nest in trees. Wasps and yellow jackets nest in the ground, trees, or roof eaves. Stay away from garbage cans when outside.Auto-injectable epinephrine If you are at high risk for another sting due to where you work or play, or if you had dizziness, fainting, or trouble breathing or swallowing from the sting, an auto-injectable epinephrine may be prescribed. If not, ask your healthcare provider for one. Always carry it with you. Learn how to use the device. If you start to feel the symptoms of another reaction in the future, use the auto-injectable epinephrine to inject yourself. Then call 911. Don't wait until symptoms become severe. Remember that the auto-injectable epinephrine is a rescue medicine only. You still need someone to take you to the hospital or call 911 after you have received the medicine.Follow-up careFollow up with your healthcare provider, or as advised if your symptoms do not keep improving.Call 911Call 911 if any of these occur: Trouble breathing or swallowing, wheezing Cool, moist, pale skin Hoarse voice or trouble speaking Confusion 10 General Instructions [facility] Emergency Department [address] [place] [address] Phone #: irb- [phone] 10/12/2020 14:09 Patient: OWEN BRANCH Sex: M : 1945 Age: 75y Very drowsy or trouble waking up Fainting or loss of consciousness Rapid heart rate Low blood pressure or feeling dizzy or weak Feeling of doom Severe nausea, vomiting, or diarrhea Seizure Swelling in the face, eyelids, lips, mouth, throat, or tongue DroolingWhen to seek medical adviceCall your healthcare provider right away or seek medical care right away if any of the following occur: Spreading areas of itching, redness, or swelling Headache, fe tati, chills, muscle or joint aching Increased pain or swelling Signs of infection of the affected area: o Spreading redness o Increase in pain or swelling o Fluid or colored drainage from the site [id number] [employer]. [address] [place] [address]. All rights reserved. This information is not intended as asubstitute for professional medical care. Always follow your healthcare professional's instructions.CellulitisCellulitis is an infection of the deep layers of skin. A break in the skin, such as a cut or scratch, can letbacteria under the skin. If the bacteria get to deep layers of the skin, it can be serious. If not treated,cellulitis can get into the bloodstream and lymph nodes. The infection can then spread throughout thebody. This causes serious illness.Cellulitis causes the affected skin to become red, swollen, warm, and sore. The reddened areas havea visible border. An open sore may leak fluid (pus). You may have a fever, chills, and pain. 11 General Instructions [facility] Emergency Department [address] [place] [address] Phone #: ext- [phone] 10/12/2020 14:09 Patient: OWEN BRANCH Sex: M : 1945 Age: 75yCellulitis is treated with antibiotics taken for 7 to 10 days. An open sore may be cleaned and coveredwith cool wet gauze. Symptoms should get better 1 to 2 days after treatment is started. Make sure totake all the antibiotics for the full number of days until they are gone. Keep taking the medicine even ifyour symptoms go away.Home careFollow these tips: Limit the use of the part of your body with cellulitis. If the infection is on your leg, keep your leg raised while sitting. This helps reduce swelling. Take all of the antibiotic medicine exactly as directed until it is gone. Don't miss any doses, especially during the first 7 days. Don't stop taking the medicine when your symptoms get better. Keep the affected area clean and dry. Wash your hands with soap and clean, running water before and after touching your skin. Anyone else who touches your skin should also wash his or her hands. Don't share towels.Follow-up careFollow up with your healthcare provider, or as advised. If your infection doesn't go away on the firstantibiotic, your healthcare provider will prescribe a different one.When to seek medical adviceCall your healthcare provider right away if any of these occur: Red areas that spread Swelling or pain that gets worse Fluid leaking from the skin (pus) Fever higher of 100.4 F (38.0 C) or higher after 2 days on antibiotics [id number] [employer]. [address] [place] [address]. All rights reserved. This information is not intended as asubstitute for professional medical care. Always follow your healthcare professional's instructions. You have been given the following additional information: General Allergic Reactions Insect Sting Allergy, Generalized Cellulitis 12 General Instructions [facility] Emergency Department [address] [place] [address] Phone #: ext- [phone] 10/12/2020 14:09 Patient: OWEN BRANCH Sex: M : 1945 Age: 75y(Electronically signed by Jerrell Conner P.A.-C 10/13/2020 17:39) Name Value Range Interpretation Code Description Data Nadia rce(s) Supporting Document(s) ID Date Data Source [id number] 10/12/2020 02:09:00 PM EDT [facility] 1 Clinical Report - Nurses [facility] Emergency Department [address] [place] [address] Phone #: ext [phone] 10/12/2020 14:09 Patient: OWEN BRANCH Sex: M : 1945 Age: 75yTRIAGEArrived by private vehicle. Historian: patient. Unaccompanied.Triage time: 14:25 10/12/2020. Acuity: LEVEL 4.Chief Complaint: SKIN RASH and INSECT BITEAlert. No acute distress.( Pt states on Friday was bit by unknown bug to inner left upper arm. [facility] area has since began torash. States itchy.).SEPSIS SCREEN: SIRS SCREEN NEGATIVE. SEPSIS SCREEN NEGATIVE. No suspected or confirmedsigns of infection present. --14:32 10/12/20 Alka Gehwiu80:24 10/12/20. BP: 133/70. MAP: 91. HR: 72. RR: 16. O2 saturation: 97% on room air. Temp: 98 F. Painlevel now: 0/10. --14:32 10/12/20 Nilesh Rucker.Weight: 110.6 kg stated. Height/Length: 72 inches Per Patient. BMI: 33.1. --14:23 10/12/20 Nilesh Rucker.MedicationsAmLODIPine Besylate Oral (Tablet 10 mg) 1 tablet, daily. Cymbalta Oral (Capsule Delayed Release Particles 30 mg) 2 capsules, daily. Dymista Nasal (Suspension 137-50 mcg/act) 1 drop, 2x a day. Januvia Oral (Tablet 50 mg) 1 tablet, daily. Lisinopril Oral (Tablet 20 mg) 1 tablet, daily. Omeprazole Oral (Capsule Delayed Release 20 mg) 1 capsule, daily. Pravastatin Sodium Oral (Tablet 40 mg) 1 tablet, daily. Simply Saline Nasal (Aerosol Solution 0.9 %), 3x a day. Singulair Oral (Tablet 10 mg) 1 tablet, daily. TraMADol HCl Oral (Tablet 50 mg) 1 tablet, daily. --14:28 10/12/20 Nilesh Rucker Gabapentin Oral (Capsule 300 mg) 1 capsule, 3x a day. --14:28 10/12/20 Nilesh Rucker.AllergiesNo Known Drug Allergy. --14:28 10/12/20 Nilesh Rucker.PROBLEMS:Arthritis.Gastroesophageal Reflux Disease.Environmental Allergies.Diabetes Mellitus.Hyperlipidemia. 2 Clinical Report - Nurses [facility] Emergency Department [address] [place] [address], [place], [facility] [address] Phone #: ext- [phone] 10/12/2020 14:09 [id number] : 1945 Age: 75y Sinusitis. Pneumonia. Hypertension. --14:29 10/12/20 Nilesh Rucker. Medication/allergy information source: the patient. --14:32 10/12/20 Nilesh Rucker. ADDITIONAL SURGERIES: Cataract Surgery. Prostatectomy. --14:29 10/12/20 Alka Nilesh. History SOCIAL HX: Former smoker. No alcohol use or drug use. He was offered HIV testing but declined and hepatitis C testing but declined. SELF HARM ASSESSMENT: Self harm assessment was performed. The patient answered "no" to the question(s) "Do you have thoughts of harming or killing yourself?" and "Do you have a plan for harming or killing yourself?". ABUSE ASSESSMENT: Abuse assessment. Abuse denied. No suspicion of abuse. No report of abuse. NUTRITIONAL RISK ASSESSMENT: The nutritional risk assessment revealed no deficiencies. FUNCTIONAL ASSESSMENT: Functional assessment: no impairments noted. LEARNING NEEDS ASSESSMENT: The learning needs assessment revealed no barriers. FALL RISK ASSESSMENT: Fall risk assessment completed. Risk factors identified include patient age greater than 65 years. SKIN INTEGRITY ASSESSMENT: Skin integrity risk assessment completed. No skin integrity risk identified. --14:32 10/12/20 AlkaIsraelin SOCIAL HX: The patient has not traveled outside the [place] Infectious disease exposure: The patient was not exposed to Coronavirus. Patient is not a known carrier of tuberculosis, hepatitis, HIV, MRSA or VRE. Patient is not a known carrier of CRE. --14:32 10/12/20 Nilesh Rucker. Interventions Identification band on patient. To waiting room. Advanced care plan (full code). No allergy band on patient. --14:32 10/12/20 Nilesh Rucker.PHYSICAL DNFGOUGOEB47:44 10/12/20. Ambulatory to room.GENERAL / NEURO / PSYCH: Alert. The patient does not appear to be in acute distress. Oriented X 4. 3 Clinical Report - Nurses [facility] Emergency Department [address] [place] [address] Phone #: ext- [phone] 10/12/2020 14:09 Patient: OWEN BRANCH Sex: M : 1945 Age: 75y HEENT: Mucous membranes are pink. RESPIRATORY: Respirations not labored. CVS: Capillary refill less than 2 seconds. SKIN: Skin rash present. Urticaria present. Increased warmth present. Erythema present. ( L inner bicep area redness and itching). --17:16 10/12/20 Stephanie Mccall RN.NURSING PROGRESS NOTES15:44 10/12/20. Reassurance given. Two patient identifiers checked. Bed placed in lowest position.Brakes of bed on. --17:17 10/12/20 Stephanie Mccall RN.DISPOSITION / DISCHARGE Departure time: 17:20 10/12/2020. --17:20 10/12/20 Stephanie Mccall RN Condition at departure: stable. No learning barriers present. Discharge instructions provided and reviewed with the patient. Reviewed medication(s) side effects, precautions, dosing and course information. Prescription(s) sent electronically to pharmacy. Patient verbalized understanding. Written instructions provided in Cypriot. The patient was discharged by the physician itinerant teacher assistant. He was discharged home and unaccompanied at time of discharge. He left ambulatory and via private vehicle. Patient driving. --17:22 10/12/20 Stephanie Mccall RN 17:20 10/12/20. BP: deferred. HR: deferred. RR: deferred. O2 saturation: deferred. Temp: deferred. Pain level now: 0/10. --17:22 10/12/20 Stephanie Mccall RN.Locked/Released at 10/12/2020 17:30 by Stephanie Mccall RN Name Value Range Interpretation Code Description Data Nadia rce(s) Supporting Document(s) ID Date Data Source [id number] 10/12/2020 02:09:00 PM EDT [facility] 1 Clinical Report - Physicians/Mid Levels [facility] Emergency Department [address] [place] [address] Phone #: ext- [phone] 10/12/2020 14:09 [id number] : 1945 Age: 75y Time Seen: 16:49 10/12/2020; initial patient contact, initial documentation. Arrived- By private vehicle. Historian- patient. Disposition decision: 17:02 10/12/2020.HISTORY OF PRESENT ILLNESS Chief Complaint: SKIN RASH and INSECT BITE. This started about 3 days ago and is still present. It is described as itchy and painful. It has been located on the left arm. A possible cause has been identified. He had a recent insect bite. (Pt states on Friday was bit by unknown bug to inner left upper arm. States area has since began to rash. States itchy and painful near elbow). Similar symptoms previously. None. Recent medical care: Not recently seen/assessed.REVIEW OF SYSTEMSNo fever, chills, sore throat, cough or difficulty breathing. No hoarseness, lump in throat, headache, eyeirritation or chest pain. No abdominal pain, nausea, diarrhea, difficulty with urination or vomiting. Thepatient has had joint pain. All other systems reviewed and are negative.PAST HISTORYSee nurses notes. Problems: Arthritis. Gastroesophageal Reflux Disease. Environmenta l Allergies. Diabetes Mellitus. Hyperlipidemia. Sinusitis. Pneumonia. Hypertension. Additional Surgeries: Cataract Surgery. Prostatectomy. Medications: Gabapentin Oral (Capsule 300 mg) 1 capsule, 3x a day. AmLODIPine Besylate Oral (Tablet 10 mg) 1 tablet, daily. Cymbalta Oral (Capsule Delayed Release Particles 30 mg) 2 capsules, daily. 2 Clinical Report - Physicians/Mid Levels [facility] Emergency Department [address] [place] [address] Phone #: ext- [phone] 10/12/2020 14:09 Patient: OWEN BRANCH Sex: M : 1945 Age: 75y Dymista Nasal (Suspension 137-50 mcg/act) 1 drop, 2x a day. Januvia Oral (Tablet 50 mg) 1 tablet, daily. Lisinopril Oral (Tablet 20 mg) 1 tablet, daily. Omeprazole Oral (Capsule Delayed Release 20 mg) 1 capsule, daily. Pravastatin Sodium Oral (Tablet 40 mg) 1 tablet, daily. Simply Saline Nasal (Aerosol Solution 0.9 %), 3x a day. Singulair Oral (Tablet 10 mg) 1 tablet, daily. TraMADol HCl Oral (Tablet 50 mg) 1 tablet, daily. Allergies: No Known Drug Allergy.SOCIAL HISTORYNever smoker. No alcohol use or drug use.ADDITIONAL NOTESThe nursing notes have been reviewed.PHYSICAL EXAMVital Signs: Have been reviewed. Oxygen saturation normal.Appearance: Alert. Oriented X3. No acute distress.Eyes: Eyelids appear normal to inspection. Conjunctivae and sclerae appear normal to inspection.Corneas appear normal to inspection. EOMs intact. Periorbital areas appear normal to inspection.ENT: Normal ENT inspection. Airway intact. TM's normal. Ears normal. Nose normal. Nares normal.Pharynx normal. Moist mucous membranes. Uvula midline. Voice normal.Neck: Neck supple.CVS: Normal heart rate and rhythm. No JVD present. Pulses normal. Capillary refill normal. Strongperipheral pulses. Heart sounds normal. Pulses: right radial 2+; left radial 2+.Respiratory: Chest normal on inspection. No respiratory distress. Unlabored respirations. Lungs clear.Good chest movement. Breath sounds normal and equal.Skin: Skin warm and dry. Erythema. No tender indurated area. Rash present on the right upperextremity. The rash is macular, papular and eryth ematous. There is warmth and inflammation. Noweeping or abscess.Extremities: Normal external inspection. Extremities nontender.Neuro: Awake. Alert. Mood/affect normal. Speech normal. No motor deficit. No sensory deficit.Psych: Cognition normal. Thought process and content normal. Insight and judgement normal.PROGRESS AND PROCEDURESCourse of Care: Enter room and pt lying peacefully in bed in NAD. Patient stable. Denies any newissues, concerns, or complaints. VSS, NAD, AOx3, interacting well and appropriately, no use of accessory muscle, able to speak full sentences, stable, non-toxic looking. Pt sts that he was bitten by a unknown insect and has been scratching the area and noetd that [facility] 3 Clinical Report - Physicians/Mid Levels [facility] Emergency Department [address] [place] [address] Phone #: ext- [phone] 10/12/2020 14:09 Patient: OWEN BRANCH Sex: M : 1945 Age: 75y has incrased over the last few days. PE dmeos NV itnact b/l UE. noted erythema and warmth. Noted papular lesions. no vesicule noted. ? 2/2 ithching wiht ? early cellulitis. discuss iwht attending and she enters evals and sts not shingles. ? early cellulitits. Will tx. Discussed tx plan with pt. Discussed and counseled on stable condition. Discussed importance of a f/u with PCP. Discussed return to ER criteria. Answered their questions. Indicates and verbalizes that they understand, agree, and will comply with above. Denies any new questions or concerns. Patient has capacity to understand. Discharge decision based on the following: patient's condition is stable; patient's exam is stable; social support is adequate; transportation is available; follow-up is available. Discussed of OTC Motrin and Tylenol to control inflammation and pain management. Informed to follow directions on bottle that are appropriate for age and/or weight. Discussed case with health care provider (Ashley). Disposition: Discharged home in good and improved condition. Condition: good and stable.CLINICAL IMPRESSION Localized allergic reaction with skin rash secondary to insect and unknown and of unknown cause. Cellulitis of the left upper arm.INSTRUCTIONS Take Tylenol (Acetaminophen) or Motrin (Ibuprofen) as needed for fever control. Take medication according to label instructions. No dietary restrictions. (Recommend to utilize OTC Motrin and Tylenol to control inflammation and pain management. Recommend to follow the instructions on the bottle and not to exceed. Recommend Benadryl as well.). Warnings: Further evaluation is necessary. GENERAL WARNINGS: Return or contact your physician immediately if your condition worsens or changes unexpectedly, if not improving as expected, or if other problems arise. Prescription Medications: cephalexin 500 mg capsule Take 1 capsule three times a day for 7 days -- Dispense 21 capsule. Refills: 0. Substitution permitted. Pharmacy - [facility] [phone] ; [place] [address]. . 4 Clinical Report - Physicians/Mid Levels [facility] Emergency Department [address] [place] [address] Phone #: ext- [phone] 10/12/2020 14:09 Patient: OWEN BRANCH Sex: M : 1945 Age: 75y Follow-up: Return to the emergency department as needed. Follow up with your healthcare provider in about two days if not better. Call for an appointment. Un derstanding of the discharge instructions verbalized by patient.(Electronically signed by Jerrell Conner P.A.-C 10/13/2020 17:39) Name Value Range Interpretation Code Description Data Nadia rce(s) Supporting Document(s) ID Date Data Source [id number] 09/07/2020 03:33:11 PM EDT [facility] Name Value Range Interpretation Code Description Data Nadia rce(s) Supporting Document(s) Progress Note [facility] [id number]/PIPmrLHBqn7EyTGwxVKi2WVzpJPKiC7NlAAM3jZ1jBKQ5YAfFSvIzOqObQeB2 lbm [file] ICAgICAgICAgICAgICAgICAgICAgICAgICAgICAgIC AgICAgICAgICAgICAgICAgICAgICAgICAgICANCiAgICAgICAgICAgICAgICAgICAgICAgICAgICAgIC AgICAgICAgICAgICAgICAgICAgICAgICAgICAgICAgICAgICAgICAgICAgICAgICAgICAgICAgICAgIC AgICAgICAgICANCiAgICAgICAgICAgICAgICAgICAg ICAgICAgICAgICAgICAgICAgICAgICAgICAgICAgICAgICAgICAgICAgICAgICAgICAgICAgICAgICAg ICAgICAgICAgICAgICAgICAgICANCiAgICAgICAgICAgICAgICAgICAgICAgICAgICAgICAgICAgICAg ICAgICAgICAgICAgICAgICAgICAgICAgICAgICAgIC AgICAgICAgICAgICAgICAgICAgICAgICAgICAgICANCiAgICAgICAgICAgICAgICAgICAgICAgICAgIC AgICAgICAgICAgICAgICAgICAgICAgICAgICAgICAgICAgICAgICAgICAgICAgICAgICAgICAgICAgIC AgICAgICAgICAgICANCiAgICAgICAgICAgICAgICAg ICAgICAgICAgICAgICAgICAgICAgICAgICAgICAgICAgICAgICAgICAgICAgICAgICAgICAgICAgICAg ICAgICAgICAgICAgICAgICAgICAgICANCiAgICAgICAgICAgICAgICAgICAgICAgICAgICAgICAgICAg ICAgICAgICAgICAgICAgICAgICAgICAgICAgICAgIC AgICAgICAgICAgICAgICAgICAgICAgICAgICAgICAgICANCiAgICAgICAgICAgICAgICAgICAgICAgIC AgICAgICAgICAgICAgICAgICAgICAgICAgICAgICAgICAgICAgICAgICAgICAgICAgICAgICAgICAgIC AgICAgICAgICAgICAgICANCiAgICAgICAgICAgICAg ICAgICAgICAgICAgICAgICAgICAgICAgICAgICAgICAgICAgICAgICAgICAgICAgICAgICAgICAgICAg ICAgICAgICAgICAgICAgICAgICAgICAgICANCiAgICAgICAgICAgICAgICAgICAgICAgICAgICAgICAg ICAgICAgICAgICAgICAgICAgICAgICAgICAgICAgIC AgICAgICAgICAgICAgICAgICAgICAgICAgICAgICAgICAgICANCjw/pGBfJ0sexKQqllD1E9tiVt4JGr 8CHR3dw5OnPNOmUXjsewGpXzoFQwJyHIGxKksDRkp1GWucDV5OaUJaF6BmL9ZgOZlsQM7XPGAuKMFqoS PmEYRqGCMyYsM4FBLgFWevHK7HsWNtKJlfKHKuZZDm HaPeIGJrZEVlPDJiBSRvDEGAQW6LZdNiN1XchE32RQREZh6+VGlquyDiUamSCkW8QNLsr7CvBNy9WZ4W BWQvSoftp2MqUcygHMBFAIodDZ2UPAM6TJI5BDKcWc2GLZWpF063cbDyTP1JGf5XJiXnRX2tip3TAjts DNKvWuhPNbi8SBgtJC7DbNTlBZmRhk9gkcBtnlRIo5 RvzeVpwPDTcuAowLWslIgoWTUsETVrZLS1YDmpIM1nXPTeFRFaNvYaHEUVPK7XEAZeVXTrkFCqJIUjNP IARC9ZHYiySEF8LGJxodGgzPTfQEusBT7PBMDpuiYkRmbwGCFEDMl+Xp6KNB0vw9KyUPbmJYUpYI2fcl 7RQHgJPdGvR2O9zMRiS3O7JLvzVx5SFJEqDNAzIoQf UKGDBOcpZB0SNK4zyaA5UU8EjWBvQMQuZJUprYEpXVf3J33ghIVwELrvCE9CSHM+Pascale+Ok6VNOHvZNHv VMKaLyKuLDIKSzTzZ4ExG1SLb0XrU5FrLT29zIsjejVyNVxbTK0ZXG5xMXQaPYGBIF6NwJZpmR0rmcWr TWVpSQZRYuFaC52trNTiKNHsJJH7QJLtWe2BASBkG0 ObqbCfuUgmzxAdVOUuWVAYJZ8VDXwvwmOcaDBxrYrfZX33jRyaTA0DNx3UIlTiFM8cpf3YwLEoGd7VAK ExNG9IVOXoPGAiRUTaPWL9SYBzKhSxFOltDMGpORFpOSL7YHJqVZItFZ8LUuXtJMOxVZQuRFqtGGUmBM Llqq6MRSUwEQZ3UPr8ZvHzDGBwPBOsMXmwQOMqGOUs CON2HIWqVGIgWJ5TEoAsPHWaBWD3OpMqUPXdREEsis9RBPVwEREoFkc7DZRjTKGmYIKsABxrORCdKRY4 JNT7UBXfDJExQP4ZMtFkTTPlRHzeETykOHTjYWKyir2BQFBzVRDhHJI3RZEsNJLpZMRtXZbzYNSuMKTj VifiAEXuEVVvWI2MUfGrMRGzZNYqQGbvDTRvMVDaqs 8ORIDkMUFaKGO0YaQjDPByACPpPXmkUQXwXSGoMJIhYMEiJUIjYD0FVaEuRXKiPNN2LSUhWFRuBVFdbv 9LXBApFSDwUwhkApHhSKQwTKMgGQyaRGDvXFImJmjnFVYyEHApXJ7ZIsEmCGWiHHZ4DLFfVOPmBUNpzc 1NDWEmKEShTEB4VfGdHCPcQIFnDLytHMRjZLT1PAG8 FVYxKUTpNT8LTbAtNOCnIJl4RyfwEEFySQCxsz1CKGFpONM7TnZ7BELnAUIdVLZhQKtzCTWhRCT2SQV2 IBJkZBLrDL3HMoPnVUByEJi3LaLeQNLnOJAcgz4LANBlJPM0ZINdDICmRTYtKIXxLCuiOKVsVFM7LXA9 QONmCNYqYQ3VZpFtDBPbWPt5SSDgXQVfDAOhmn6IFC EhIAZ4PXJpRyRjIDSlOIHbIItoXWMlZUUoVPL5RDNiCIMzGR1EIoTpTEUvTOV7UfTrOYIaRQVfbb9NOJ FpVPY9NeQ1RaNrCPKoVAHwJGy2lxTdrSHmLXg8IP4JA2MnxsWdAdCSKr2Xq274FTPsQAVsAt9QA4urJx 6fWHVqWKCDJt7SHHv9NGu5VNPqW0OtOXIbRHIcQBsy PJM2RTGmOcV1OEKdOaJ+VGx4FzKiSHOsIRF5DHUkPYA9GVAsGng5JjXlFHv4GaRsGN2tQMYHAb3+DQpz tVZcbDdbRGBVUpUwKqRiLXcgBSPLIj4C ID Date Data Source [id number] 09/06/2020 01:15:00 PM EDT [facility] ([facility]) Name Value Range Interpretation Code Description Data Nadia rce(s) Supporting Document(s) Laboratory test finding (navigational concept) Laboratory test r esult Normal (applies to non-numeric results) [facility] ([facility]) <content>Negative: <20 </content>
<content>Weak Positive: 20 - 39</content>
<content>Moderate Positive: 40 - 80</content>
<content>Strong Positive: > 80</content>
<content></content> Branch extractable nuclear Ab [Units/volume] in Serum Laboratory test result Normal (applies to non-numeric results) [facility] ([facility]) <content>Negative: <20 </content>
<content>Weak Positive: 20 - 39</content>
<content>Moderate Positive: 40 - 80</content>
<content>Strong Positive: > 80</content>
<content></content> ID Date Data Source [id number] 09/06/2020 01:15:00 PM EDT [facility] ([facility]) Name Value Range Interpretation Code Description Data Nadia rce(s) Supporting Document(s) Laboratory test finding (navigational concept) Laboratory test r esult Normal (applies to non-numeric results) [facility] ([facility]) Performed at: - [facility] [id number] Physical Education Aide: Joanna Bear MD, Phone: [phone] Performed at: [employer] [address] [place] [id number] Physical Education Aide: Matthias Ponce MD, Phone: [phone] Performed at: - [facility] [id number] Physical Education Aide: Nii Blackman MD, Phone: [phone] ID Date Data Source [id number] 09/06/2020 01:15:00 PM EDT [facility] ([facility]) Name Value Range Interpretation Code Description Data Nadia rce(s) Supporting Document(s) Antinuclear Antibodies Direct Laboratory test result Normal (applies to non- numeric results) [facility] ([facility]) Sjogren's Anti SS-B Laboratory test result 0.0-0.9 Amanda l (applies to non- numeric results) [facility] ([facility]) Sjogren's Anti SS-A Laboratory test result 0.0-0.9 Amanda l (applies to non- numeric results) [facility] ([facility]) ID Date Data Source [id number] 09/06/2020 01:15:00 PM EDT [facility]) Name Value Range Interpretation Code Description Data Nadia rce(s) Supporting Document(s) C reactive protein [Mass/volume] in Serum or Plasma by High sensitivity method 0.30 mg/dL 0.00-0.30 Normal (applies to non-numeric results) [facility] ([facility]) ID Date Data Source [id number] 09/06/2020 01:15:00 PM EDT [facility] ([facility]) Name Value Range Interpretation Code Description Data Nadia rce(s) Supporting Document(s) Blood Urea Nitrogen 19 mg/dL 7-18 Above high normal [facility] ([facility]) Glucose, Fasting 119 mg/dL 70-100 Above high normal [facility] ([facility]) Creatinine For GFR 1.21 mg/dL 0.70-1.30 Normal (applies to non -numeric results) [facility] ([facility]) Glomerular Filtration Rate Laboratory test result Normal (applies to non- numeric results) [facility]) <content>Units are mL/min/1.73 m2</content>
<content></content>
<content>Chronic Kidney Disease Staging per NKF:</content>
<content></content>
<content>Stage I & II GFR >=60 Normal to Mildly Decreased</content>
<content>Stage III GFR 30- 59 Moderately Decreased</content>
<content>Stage IV GFR 15-29 Severely Decreased</content>
<content>Stage V GFR <15 Very Little GFR Left</content>
<content>ESRD GFR <15 on MACHINE STRAW HAT PRESSER</content>
<content></content> Sodium Level 140 meq/L 136-145 Normal (applies to non-numeric res ults) [facility] ([facility], ) Chloride Level 107 meq/L 98-107 Normal (applies to non-numeric r esults) [facility] ([facility]) Potassium Serum 4.3 meq/L 3.5-5.1 Normal (applies to non-numeric results) [facility] ([facility]) Carbon Dioxide Level 26 meq/L 21-32 Normal (applies to non-num elba results) [facility] ([facility]) Anion Gap 7 meq/L 8-16 Below low normal [facility] ( [facility]) Calcium Level 8.6 mg/dL 8.8-10.2 Below low normal [facility] ([facility], ) Ast/Sgot 28 U/L 7-37 Normal (applies to non-numeric resul ts) [facility] ([facility]) Alt/SGPT 40 U/L 12-78 Normal (applies to non-numeric resul ts) [facility] ([facility]) Bilirubin,Total 0.5 mg/dL 0.2-1.0 Normal (applies to non-numeric results) [facility] ([facility]) Alkaline Phosphatase 84 U/L 45-117 Normal (applies to non-num elba results) [facility] ([facility], ) Total Protein 7.3 GM/DL 6.4-8.2 Normal (applies to non-numeric re sults) [facility] ([facility]) Albumin 4.0 GM/DL 3.2-5.2 Normal (applies to non-numeric resul ts) [facility] ([facility]) Albumin/Globulin Ratio 1.2 Normal (applies to non-n umeric results) [facility]) ID Date Data Source [id number] 09/06/2020 01:15:00 PM EDT [facility] ([facility]) Name Value Range Interpretation Code Description Data Nadia rce(s) Supporting Document(s) White Blood Count 7.1 10 4.0-10.0 Normal (applies to non-numeri c results) [facility] ([facility]) Red Blood Count 4.60 10 4.30-6.10 Normal (applies to non-numeric results) [facility] ([facility]) Hemoglobin 13.3 g/dL 13.5-17.5 Below low normal [facility] ( [facility]) Hematocrit 40.6 % 42.0-52.0 Below low normal [facility] ( [facility]) Mean Corpuscular Volume 88.3 fl 80.0-96.0 Normal ( applies to non-numeric results) [facility] ([facility]) Mean Corpuscular Hemoglobin 28.9 pg 27.0-33.0 Norm al (applies to non-numeric results) [facility] ([facility]) Red Cell Distribution Width 12.9 % 11.5-14.5 Norm al (applies to non-numeric results) [facility] ([facility]) Mean Corpuscular HGB Conc 32.8 g/dL 32.0-36.5 Normal (applies to non-numeric results) [facility] ([facility]) Platelet Count, Automated 249 10 150-450 Normal (applies to non-numeric results) [facility] ([facility]) Neutrophils % 62.8 % 36.0-66.0 Normal (applies to non-numeric re sults) [facility] ([facility]) Lymph % 22.8 % 24.0-44.0 Below low normal [facility] ( [facility]) Eos % 1.7 % 0.0-3.0 Normal (applies to non-numeric resul ts) [facility] [place] % 11.5 % 2.0-8.0 Above high normal [facility]) Baso % 0.8 % 0.0-1.0 Normal (applies to non-numeric resul ts) [facility] Immature Granulocyte % 0.4 % 0-3.0 Normal (applies to non-n umeric results) [facility] ([facility], ) Nucleated Red Blood Cell % 0.0 % 0-0 Normal (applies to n on-numeric results) [facility] ([facility]) Lymph # 1.6 10 1.5-5.0 Normal (applies to non-numeric resul ts) [facility] ([facility]) Neutrophils # 4.5 10 1.5-8.5 Normal (applies to non-numeric re sults) [facility] ([facility]) Eos # 0.1 10 0.0-0.5 Normal (applies to non-numeric resul ts) [facility] ([facility]) [place] # 0.8 10 0.0-0.8 Normal (applies to non-numeric resul ts) [facility] ([facility]) Baso # 0.1 10 0.0-0.2 Normal (applies to non-numeric resul ts) [facility] ([facility]) ID Date Data Source [id number] 09/06/2020 12:30:00 PM EDT [facility] Name Value Range Interpretation Code Description Data Nadia rce(s) Supporting Document(s) SARS-CoV-2 (COVID-19) RNA [Presence] in Respiratory specimen by TRAY with probe detection Not Detected [facility] This lab was ordered by [facility] and reported by [employer] ID Date Data Source VITAMIN B12 LEVEL 08/22/2020 12:00:00 AM EDT eC1 ([facility]) Name Value Range Interpretation Code Description Data Nadia rce(s) Supporting Document(s) > 1999 [id number] VITAMIN B12 LEVEL [facility] ([facility]) ID Date Data Source [id number] 08/07/2020 02:59:00 PM EDT [facility] ([facility]) Name Value Range Interpretation Code Description Data Nadia rce(s) Supporting Document(s) Calcidiol [Mass/volume] in Serum or Plasma 41.9 ng/mL 30.0- 100.0 Normal (applies to non-numeric results) [facility] ([facility]) ID Date Data Source [id number] 08/07/2020 02:57:00 PM EDT [facility] ([facility]) Name Value Range Interpretation Code Description Data Nadia rce(s) Supporting Document(s) Laboratory test finding (navigational concept) 109 mg/dL 7 0-100 Above high normal [facility] ([facility]) Laboratory test finding (navigational concept) 1.02 mg/dL 0 .70-1.30 Normal (applies to non-numeric results) [facility] ([facility]) Laboratory test finding (navigational concept) 23 mg/dL 7-18 Above high normal [facility] ([facility]) Laboratory test finding (navigational concept) Laboratory test r esult Normal (applies to non-numeric results) [facility] ([facility]) <content>Units are mL/min/1.73 m2</content>
<content></content>
<content>Chronic Kidney Disease Staging per NKF:</content>
<content></content>
<content>Stage I & II GFR >=60 Normal to Mildly Decreased</content>
<content>Stage III GFR 30- 59 Moderately Decreased</content>
<content>Stage IV GFR 15-29 Severely Decreased</content>
<content>Stage V GFR <15 Very Little GFR Left</content>
<content>ESRD GFR <15 on MACHINE STRAW HAT PRESSER</content>
<content></content> Laboratory test finding (navigational concept) 140 meq/L 1 36-145 Normal (applies to non-numeric results) [facility] ([facility]) Laboratory test finding (navigational concept) 4.3 meq/L 3 .5-5.1 Normal (applies to non-numeric results) [facility] ([facility]) Laboratory test finding (navigational concept) 107 meq/L 9 8-107 Normal (applies to non-numeric results) [facility] ([facility]) Laboratory test finding (navigational concept) 25 meq/L 2 1-32 Normal (applies to non-numeric results) [facility] ([facility]) Laboratory test finding (navigational concept) 8 meq/L 8 -16 Normal (applies to non-numeric results) [facility] ([facility]) Laboratory test finding (navigational concept) 8.8 mg/dL 8 .8-10.2 Normal (applies to non-numeric results) [facility] ([facility]) ID Date Data Source Basic Metabolic Profile (BMP) 08/07/2020 12:00:00 AM EDT eCW 1 ([facility]) Name Value Range Interpretation Code Description Data Nadia rce(s) Supporting Document(s) 109 70-100 GLUCOSE, FASTING eCW1 ([facility]) 23 7-18 BLOOD UREA NITROGEN eCW1 ([facility]) 1.02 0.70-1.30 CREATININE FOR GFR eCW1 ([facility]) > 60.0 >42 GLOMERULAR FILTRATION RATE eCW 1 ([facility]) 140 136-145 SODIUM LEVEL eCW1 ([facility]) 4.3 3.5-5.1 POTASSIUM SERUM eCW1 (Critical access hospital) 25 21-32 CARBON DIOXIDE LEVEL eCW1 ([facility]) 107 98-107 CHLORIDE LEVEL eCW1 ([facility]) 8.8 8.8-10.2 CALCIUM LEVEL eCW1 ([facility]) ID Date Data Source URINE CULTURE 08/02/2020 12:00:00 AM EDT eCW1 ([facility]) Name Value Range Interpretation Code Description Data Nadia rce(s) Supporting Document(s) URINE CULTURE eCW1 ([facility]) ID Date Data Source UA URINALYSIS 08/02/2020 12:00:00 AM EDT eCW1 ([facility]) Name Value Range Interpretation Code Description Data Nadia rce(s) Supporting Document(s) UA URINALYSIS eCW1 ([facility]) ID Date Data Source [id number] 07/24/2020 03:52:00 PM EDT [facility] ([facility]) Name Value Range Interpretation Code Description Data Nadia rce(s) Supporting Document(s) Laboratory test finding (navigational concept) 199.0 mg/dL Normal (applies to non-numeric results) [facility] ([facility]) Laboratory test finding (navigational concept) 11.9 MCG/MG 0 .0-30.0 Normal (applies to non-numeric results) [facility] ([facility] Han[facility]) [employer] STATES THAT MICROALBUMINURIA IS PRESENT IF THE MICROALBUMIN/CREATININE RATIO EXCEEDS 30 MCG/MG. THE THRESHOLD FOR CLINICAL ALBUMINURIA IS REACHED AT 300 MCG/MG. THE CLASSIFICATION OF A PATIENT SHOULD BE BASED UPON AT LEAST 2 OF 3 ABNORMAL RESULTS ON SPECIMENS COLLECTED WITHIN A 3 TO 6 MONTH TIME FRAME. Laboratory test finding (navigational concept) 23.8 mg/L Normal (applies to non-numeric results) [facility] ([facility]) ID Date Data Source [id number] 07/24/2020 03:52:00 PM EDT [facility] ([facility]) Name Value Range Interpretation Code Description Data Nadia rce(s) Supporting Document(s) Creatine kinase [Enzymatic activity/volume] in Serum or Plasma 1 00 U/L 39-308 Normal (applies to non-numeric results) [facility] ([facility]) ID Date Data Source [id number] 07/24/2020 03:52:00 PM EDT [facility] ([facility]) Name Value Range Interpretation Code Description Data Nadia rce(s) Supporting Document(s) Laboratory test finding (navigational concept) 166 mg/dL Normal (applies to non-numeric results) [facility] ([facility]ley [facility]) Laboratory test finding (navigational concept) 152 mg/dL Above high normal [facility] ([facility] Hanley [facility]) Laboratory test finding (navigational concept) 99 mg/dL Normal (applies to non-numeric results) [facility] ([facility] Hanley [facility]) Laboratory test finding (navigational concept) 37 mg/dL Below low normal [facility] ([facility]) Laboratory test finding (navigational concept) 129 mg/dL Normal (applies to non-numeric results) [facility] ([facility]) Laboratory test finding (navigational concept) 4.486 Normal (applies to non- numeric results) [facility] ([facility]) ID Date Data Source [id number] 07/24/2020 03:52:00 PM EDT [facility] ([facility]) Name Value Range Interpretation Code Description Data Nadia rce(s) Supporting Document(s) Laboratory test finding (navigational concept) 1.13 mg/dL 0 .70-1.30 Normal (applies to non-numeric results) [facility] ([facility] Hanley [facility]) Laboratory test finding (navigational concept) 111 mg/dL 7 0-100 Above high normal [facility] ([facility] Hanley MD) Laboratory test finding (navigational concept) 25 mg/dL 7-18 Above high normal [facility] ([facility] Hanley [facility]) Laboratory test finding (navigational concept) Laboratory test r esult Normal (applies to non-numeric results) [facility] ([facility]) <content>Units are mL/min/1.73 m2</content>
<content></content>
<content>Chronic Kidney Disease Staging per NKF:</content>
<content></content>
<content>Stage I & II GFR >=60 Normal to Mildly Decreased</content>
<content>Stage III GFR 30-59 Moderately Decreased</content>
<content>Stage IV GFR 15-29 Severely Decreased</content>
<content>Stage V GFR <15 Very Little GFR Left</content>
<content>ESRD GFR <15 on MACHINE STRAW HAT PRESSER</content>
<content></content> Laboratory test finding (navigational concept) 142 meq/L 1 36-145 Normal (applies to non-numeric results) [facility] ([facility]) Laboratory test finding (navigational concept) 4.5 meq/L 3 .5-5.1 Normal (applies to non-numeric results) [facility] ([facility] Hanley [facility]) Laboratory test finding (navigational concept) 110 meq/L 9 8-107 Above high normal [facility] ([facility] Han[facility]) Laboratory test finding (navigational concept) 25 meq/L 2 1-32 Normal (applies to non-numeric results) [facility] ([facility] Han[facility]) Laboratory test finding (navigational concept) 8.8 mg/dL 8 .8-10.2 Normal (applies to non-numeric results) [facility] ([facility] Hanley MD) Laboratory test finding (navigational concept) 7 meq/L 8-16 Below low normal [facility] ([facility] Hanley MD) Laboratory test finding (navigational concept) 27 U/L 7 -37 Normal (applies to non-numeric results) [facility] (Chet Hanley MD) Laboratory test finding (navigational concept) 32 U/L 1 2-78 Normal (applies to non-numeric results) [facility] ([facility] Hanley MD) Laboratory test finding (navigational concept) 102 U/L 4 5-117 Normal (applies to non-numeric results) [facility] (C[facility] Hanley MD) Laboratory test finding (navigational concept) 0.4 mg/dL 0 .2-1.0 Normal (applies to non-numeric results) [facility] ([facility] Hanley MD) Laboratory test finding (navigational concept) 7.4 GM/DL 6 .4-8.2 Normal (applies to non-numeric results) [facility] ([facility] Hanley [facility]) Laboratory test finding (navigational concept) 3.8 GM/DL 3 .2-5.2 Normal (applies to non-numeric results) [facility] (C[facility] Hanley MD) Laboratory test finding (navigational concept) 1.1 Normal (applies to non- numeric results) [facility] ([facility]) ID Date Data Source [id number] 07/24/2020 03:52:00 PM EDT [facility] ([facility]) Name Value Range Interpretation Code Description Data Nadia rce(s) Supporting Document(s) Laboratory test finding (navigational concept) 128 mg/dL 6 0-110 Above high normal [facility] ([facility] Han[facility]) Laboratory test finding (navigational concept) 6.1 % Normal (applies to non- numeric results) [facility] ([facility]) <content>REFERENCE RANGES:</content><br/ ><content></content>
<content><=5.6% NORMAL</content>
<content>5.7-6.4% SUGGESTS IMPAIRED GLUCOSE METABOLISM/PREDIABETIC</content>
<content>>= 6.5% ABNORMAL</content>
<content></content> ID Date Data Source [id number] 07/24/2020 03:52:00 PM EDT [facility] ([facility]) Name Value Range Interpretation Code Description Data Nadia rce(s) Supporting Document(s) Laboratory test finding (navigational concept) 9.4 10 4 .0-10.0 Normal (applies to non-numeric results) [facility] ([facility] Hanley [facility]) Laboratory test finding (navigational concept) 13.4 g/dL 1 3.5-17.5 Below low normal [facility] ([facility] Hanley MD) Laboratory test finding (navigational concept) 4.67 10 4 .30-6.10 Normal (applies to non-numeric results) [facility] (C[facility] Hanley MD) Laboratory test finding (navigational concept) 41.0 % 4 2.0-52.0 Below low normal [facility] ([facility] Hanley MD) Laboratory test finding (navigational concept) 87.8 fl 8 0.0-96.0 Normal (applies to non-numeric results) [facility] ([facility] Hanley MD) Laboratory test finding (navigational concept) 28.7 pg 2 7.0-33.0 Normal (applies to non-numeric results) [facility] ([facility] Hanley [facility]) Laboratory test finding (navigational concept) 282 10 1 50-450 Normal (applies to non-numeric results) [facility] ([facility] Hanley MD) Laboratory test finding (navigational concept) 13.3 % 1 1.5-14.5 Normal (applies to non-numeric results) [facility] (C[facility] Hanley MD) Laboratory test finding (navigational concept) 32.7 g/dL 3 2.0-36.5 Normal (applies to non-numeric results) [facility] ([facility] Hanley MD) Laboratory test finding (navigational concept) 0.0 % 0 -0 Normal (applies to non- numeric results) [facility] ([facility] Hanley MD) ID Date Data Source [id number] 06/19/2020 03:15:00 PM EDT [facility] ([facility]) Name Value Range Interpretation Code Description Data Nadia rce(s) Supporting Document(s) Prostate specific Ag [Mass/volume] in Serum or Plasma Laboratory test result Normal (applies to non-numeric results) [facility] ([facility] case MD) The PSA assay is performed on the [employer] analyzer by [employer] sandwich chemiluminescent immunoassay and should not be compared interchangeably with other methods. It should not be used alone as a screening test or diagnosis for the presence or absence of malignant disease. Predictions of disease recurrence should not be based solely on values obtained from serial patient serum values. ID Date Data Source [id number] 05/19/2020 02:00:00 PM EDT [facility] ([facility]) Name Value Range Interpretation Code Description Data Nadia rce(s) Supporting Document(s) Afb Smear Laboratory test result [facility] ([facility]) Due to limited sensitivity, smear result s should be used as an adjunct in evaluating patient tuberculosis status. Cultural examination is highly recommended for clinical diagnosis. AFB smear Kinyoun NEGATIVE (NO AFB Seen ) Afb Culture Laboratory test result [facility] ([facility]) Testing performed at reference lab . Rep ort copy to follow on a separate form. 07/06/20 REF LAB#:[id number] FULL REPORT IN LAB NOTES ([facility]CW and [facility]). No Acid-Fast Bacilli Isolated after 6 Weeks. ID Date Data Source [id number] 05/19/2020 02:00:00 PM EDT [facility] ([facility]) Name Value Range Interpretation Code Description Data Nadia rce(s) Supporting Document(s) Sputum Culture Laboratory test result Normal (applies to non-numeric results) [facility] ([facility]) FULL REPORT IN LAB NOTES ([facility]CW and [facility] ). NORMAL ZACHARIAH PRESENT Gram Stain Laboratory test result Normal (applies to non-n umeric results) [facility] ([facility]) QUALITY: GOOD MODERATE WBCS FEW EPITHELIAL CELLS FEW GRAM POSITIVE COCCI IN PAIRS ID Date Data Source [id number] 05/17/2020 03:21:00 PM EDT [facility] ([facility]) Name Value Range Interpretation Code Description Data Nadia rce(s) Supporting Document(s) Aspergillus fumigatus IgE Ab [Units/volume] in Serum Laboratory test result Normal (applies to non-numeric results) [facility] ([facility] case [facility]) <content>.</content>
<content>Levels of Specific IgE Class Description of Class</content>
<content> ----- </content>
<content>< 0.10 0 Negative</content>
<content>0.10 - 0.31 0/I Equivocal/Low</content>
<content>0.32 - 0.55 I Low</content>
<content>0.56 - 1.40 II Moderate</content>
<content>1.41 - 3.90 III High</content>
<content>3.91 - 19.00 IV Very High</content>
<content>19.01 - 100.00 V Very High</content>
<content>>100.00 Very High</content>
<content>Performed at: [facility]</content>
<content>[address], [place] [id number]</content>
<content>Physical Education Aide: Nii Blackman MD, Phone: [phone]</content>
<content>Performed at: [facility]</content>
<content>[address] [place], [place] [id number]</content>
<content>Physical Education Aide: Tamie Mccarty [facility], Phone: [phone]</content>
<content></content> ID Date Data Source [id number] 05/17/2020 03:21:00 PM EDT [facility] ([facility]) Name Value Range Interpretation Code Description Data Nadia rce(s) Supporting Document(s) Laboratory test finding (navigational concept) Laboratory test r esult Normal (applies to non-numeric results) [facility] ([facility]) Laboratory test finding (navigational concept) Laboratory test r esult Normal (applies to non-numeric results) [facility] ([facility]het Hanley MD) Laboratory test finding (navigational concept) Laboratory test r esult Normal (applies to non-numeric results) [facility] (Chet Hanley MD) ID Date Data Source [id number] 05/17/2020 03:21:00 PM EDT [facility] ([facility] MD) Name Value Range Interpretation Code Description Data Nadia rce(s) Supporting Document(s) Galactomannan Ag [Presence] in Serum or Plasma by Immunoassa y 0.06 Index 0.00-0.49 Normal (applies to non-numeric results) [facility] ( Chet Hanley MD) ID Date Data Source [id number] 04/19/2020 12:30:00 PM EST [facility] Name Value Range Interpretation Code Description Data Nadia rce(s) Supporting Document(s) SARS coronavirus 2 RNA Not Detected [facility] This lab was ordered by [facility] and reported by [facility]. ID Date Data Source [id number] 04/17/2020 06:36:[address] [facility] Name Value Range Interpretation Code Description Data Nadia rce(s) Supporting Document(s) White Blood Count 4.8-10.8 Normal (applies to non-numeri c results) [facility] Red Blood Count 4.35-6.08 Normal (applies to non-numeric results) [facility] Hemoglobin 13.0-17.5 Below low normal [facility] Hematocrit 37.7-51.0 Below low normal [facility] Mean Corpuscular Volume 80-94 Normal (applies to non- numeric results) [facility] Mean Corpuscular Hemoglobin 27.0-33.0 Normal (appli es to non-numeric results) [facility] Mean Corpuscular HGB Conc 32.0-36.0 Normal (applies to no n-numeric results) [facility] Red Cell Distribution Width 11.5-14.5 Normal (appli es to non-numeric results) [facility] Platelet Count 332 X10 3/uL 130-450 Normal (applies to non-numeric results) [facility] Mean Platelet Volume 9.6-13.1 Below low normal [facility] Imm Grans% (AUTO) 0 % 0-2 Normal (applies to non-numeri c results) [facility] Neutrophils % (AUTO) 61 % 40-75 Normal (applies to non-num elba results) [facility] Lymphocytes % (AUTO) 22 % 21-46 Normal (applies to non-num elba results) [facility] Monocytes % (AUTO) 14 % 5-12 Above high normal [facility] Eosinophils % (AUTO) 1 % 1-5 Normal (applies to non-num elba results) [facility] Basophils % (AUTO) 1 % 0-1 Normal (applies to non-numer ic results) [facility] Imm Grans# (AUTO) 0.0-0.5 Normal (applies to non-numeri c results) [facility] Neutrophils # (AUTO) 1.5-8.1 Normal (applies to non-num elba results) [facility] Lymphocytes # (AUTO) 1.0-3.1 Normal (applies to non-num elba results) [facility] Monocytes # (AUTO) 0.2-1.3 Above high normal [facility] Eosinophils# (AUTO) 0.0-0.5 Normal (applies to non-nume ludmila results) [facility] Basophils # (AUTO) 0.0-0.1 Normal (applies to non-numer ic results) [facility] ID Date Data Source [id number] 04/17/2020 06:32:[address] [facility] Name Value Range Interpretation Code Description Data Nadia rce(s) Supporting Document(s) Sodium 140 mmol/L 137-145 Normal (applies to non-numeric resul ts) [facility] Potassium 3.5-5.1 Normal (applies to non-numeric resul ts) [facility] Chloride 109 mmol/L 98-112 Normal (applies to non-numeric resul ts) [facility] Carbon Dioxide CO2 22.0-33.0 Normal (applies to non-numer ic results) [facility] Anion Gap 4.0-11.0 Below low normal [facility] BUN 27 mg/dL 9-20 Above high normal [facility] Creatinine 0.80-1.50 Normal (applies to non-numeric resul ts) [facility] GFR 54 mL/min >60 Below low normal [facility] Result based on MDRD formula. Glucose Level 109 mg/dL 74-[address] [facility] The reference range is only applicable w hen fasting. Calcium-Uncorrected 8.4-10.2 Normal (applies to non-nume ludmila results) [facility] Corrected Calcium 8.4-10.2 Normal (applies to non-numeri c results) [facility] Bilirubin,Total 0.2-1.3 Normal (applies to non-numeric results) [facility] SGOT(AST) 26 U/L 17-59 Normal (applies to non-numeric resul ts) [facility] SGPT(ALT) 26 U/L 21-72 Normal (applies to non-numeric resul ts) [facility] Alkaline Phosphatase 90 U/L 38-126 Normal (applies to non-num elba results) [facility] can increase Alkaline Phosp le vels up to 2 times the normal adult value. Normal values for children and adolescents are 2 to 3 times the normal adult value. Total Protein 6.3-8.2 Normal (applies to non-numeric re sults) [facility] Albumin 3.5-5.0 Normal (applies to non-numeric resul ts) [facility] ID Date Data Source [id number] 04/17/2020 06:32:[address] [facility] Name Value Range Interpretation Code Description Data Nadia rce(s) Supporting Document(s) C-Reactive Protein,Wide Range <3.00 Above high normal [facility] ID Date Data Source [id number] 03/19/2020 10:15:00 AM EST [facility] Name Value Range Interpretation Code Description Data Nadia rce(s) Supporting Document(s) SARS coronavirus 2 RNA Not Detected [facility] This lab was ordered by [facility] and reported by [facility]. ID Date Data Source [id number] 01/12/2020 10:00:00 AM EST [facility] (Chet Hanley MD) Name Value Range Interpretation Code Description Data Nadia rce(s) Supporting Document(s) Laboratory test finding (navigational concept) Laboratory test result [facility] (Chet Hanley MD) This nucleic acid amplification test was developed and its performance characteristics determined by [facility]. Nucleic acid amplification tests include PCR and TMA. This test has not been FDA cleared or approved. This test has been authorized by FDA under an Emergency Use Authorization (EUA). This test is only authorized for the duration of time the declaration that circumstances exist justifying the authorization of the emergency use of in vitro diagnostic tests for detection of SARS-CoV-2 virus and/or diagnosis of COVID-19 infection under section 564(b)(1) of the Act, 21 U.S.C. 360bbb-3 (b) (1), unless the authorization is terminated or revoked sooner. When diagnostic testing is negative, the possibility of a false negative result should be considered in the context of a patient's recent exposures and the presence of clinical signs and symptoms consistent with COVID-19. An individual without symptoms of COVID-19 and who is not shedding SARS-CoV-2 virus would expect to have a negative (not detected) result in this assay. Performed at: [facility] [address] [id number] Physical Education Aide: Macie Antonio PhD, Phone: [phone] Not Detected ID Date Data Source [id number] 01/12/2020 10:00:00 AM EST [facility] Name Value Range Interpretation Code Description Data Naida rce(s) Supporting Document(s) SARS coronavirus 2 RNA [facility] This lab was ordered by [facility] and reported by [facility]. ID Date Data Source [id number] 12/15/2019 12:00:00 PM EDT [facility] (Chet Hanley MD) Name Value Range Interpretation Code Description Data Nadia rce(s) Supporting Document(s) Laboratory test finding (navigational concept) Laboratory test result [facility] (Chet Hanley MD) This nucleic acid amplification test was developed and its performance characteristics determined by [facility]. Nucleic acid amplification tests include PCR and TMA. This test has not been FDA cleared or approved. This test has been authorized by FDA under an Emergency Use Authorization (EUA). This test is only authorized for the duration of time the declaration that circumstances exist justifying the authorization of the emergency use of in vitro diagnostic tests for detection of SARS-CoV-2 virus and/or diagnosis of COVID-19 infection under section 564(b)(1) of the Act, 21 U.S.C. 360bbb-3 (b) (1), unless the authorization is terminated or revoked sooner. When diagnostic testing is negative, the possibility of a false negative result should be considered in the context of a patient's recent exposures and the presence of clinical signs and symptoms consistent with COVID-19. An individual without symptoms of COVID-19 and who is not shedding SARS-CoV-2 virus would expect to have a negative (not detected) result in this assay. Performed at: [facility] [place] [facility] [id number] Physical Education Aide: Joanna Bear MD, Phone: [phone] Not Detected ID Date Data Source [id number] 12/15/2019 12:00:00 PM EDT [facility] Name Value Range Interpretation Code Description Data Nadia rce(s) Supporting Document(s) SARS coronavirus 2 RNA [facility] This lab was ordered by [facility] and reported by [facility]. ID Date Data Source [id number] 12/08/2019 06:57:[address] [facility] Name Value Range Interpretation Code Description Data Nadia rce(s) Supporting Document(s) Sodium 138 mmol/L 137-145 Normal (applies to non-numeric resul ts) [facility] Potassium 3.5-5.1 Normal (applies to non-numeric resul ts) [facility] Chloride 105 mmol/L 98-112 Normal (applies to non-numeric resul ts) [facility] Carbon Dioxide CO2 22.0-33.0 Normal (applies to non-numer ic results) [facility] Anion Gap 4.0-11.0 Normal (applies to non-numeric resul ts) [facility] BUN 21 mg/dL 9-20 [facility] high [facility] Creatinine 0.80-1.50 Normal (applies to non-numeric resul ts) [facility] GFR 64 mL/min >60 Normal (applies to non-numeric resul ts) [facility] Result based on MDRD formula. Glucose Level 88 mg/dL 74-99 Normal (applies to non-numeric re sults) [facility] The reference range is only applicable w hen fasting. Calcium-Uncorrected 8.4-10.2 Normal (applies to non-nume ludmila results) [facility] Corrected Calcium 8.4-10.2 Normal (applies to non-numeri c results) [facility] Bilirubin,Total 0.2-1.3 Normal (applies to non-numeric results) [facility] SGOT(AST) 36 U/L 17-59 Normal (applies to non-numeric resul ts) [facility] SGPT(ALT) 55 U/L 21-72 Normal (applies to non-numeric resul ts) [facility] Alkaline Phosphatase 96 U/L 38-126 Normal (applies to non-num elba results) [facility] can increase Alkaline Phosp le vels up to 2 times the normal adult value. Normal values for children and adolescents are 2 to 3 times the normal adult value. Total Protein 6.3-8.2 Normal (applies to non-numeric re sults) [facility] Albumin 3.5-5.0 Normal (applies to non-numeric resul ts) [facility] ID Date Data Source [id number] 12/08/2019 06:57:[address] [facility] Name Value Range Interpretation Code Description Data Nadia rce(s) Supporting Document(s) C-Reactive Protein,Wide Range <3.00 Above high normal [facility] ID Date Data Source [id number] 12/08/2019 06:00:[address] [facility] Name Value Range Interpretation Code Description Data Nadia rce(s) Supporting Document(s) White Blood Count 4.8-10.8 Normal (applies to non-numeri c results) [facility] Red Blood Count 4.35-6.08 Normal (applies to non-numeric results) [facility] Hemoglobin 13.0-17.5 Normal (applies to non-numeric resul ts) [facility] Hematocrit 37.7-51.0 Normal (applies to non-numeric resul ts) [facility] Mean Corpuscular Volume 80-94 Normal (applies to non- numeric results) [facility] Mean Corpuscular Hemoglobin 27.0-33.0 Normal (appli es to non-numeric results) [facility] Mean Corpuscular HGB Conc 32.0-36.0 Normal (applies to no n-numeric results) [facility] Red Cell Distribution Width 11.5-14.5 Normal (appli es to non-numeric results) [facility] Platelet Count 311 X10 3/uL 130-450 Normal (applies to non-numeric results) [facility] Mean Platelet Volume 9.6-13.1 Normal (applies to non-num elba results) [facility] Imm Grans% (AUTO) 0 % 0-2 Normal (applies to non-numeri c results) [facility] Neutrophils % (AUTO) 59 % 40-75 Normal (applies to non-num elba results) [facility] Lymphocytes % (AUTO) 22 % 21-46 Normal (applies to non-num elba results) [facility] Monocytes % (AUTO) 16 % 5-12 Above high normal [facility] Eosinophils % (AUTO) 2 % 1-5 Normal (applies to non-num elba results) [facility] Basophils % (AUTO) 1 % 0-1 Normal (applies to non-numer ic results) [facility] Imm Grans# (AUTO) 0.0-0.5 Normal (applies to non-numeri c results) [facility] Neutrophils # (AUTO) 1.5-8.1 Normal (applies to non-num elba results) [facility] Lymphocytes # (AUTO) 1.0-3.1 Normal (applies to non-num elba results) [facility] Monocytes # (AUTO) 0.2-1.3 Above high normal [facility] Eosinophils# (AUTO) 0.0-0.5 Normal (applies to non-nume ludmila results) [facility] Basophils # (AUTO) 0.0-0.1 Normal (applies to non-numer ic results) [facility] Procedure Social History Code Duration Value Status Description Data Source(s ) Smoking 01/15/2021 12:00:00 AM EST - 03/03/1970 12:00:00 AM EST Patient is a former smoker completed Patient is a former smoker [facility] ([facility], ) Smoking 12/28/2020 12:00:00 AM EDT Former Smoker completed Former Smoker eCW1 ([facility]) Smoking 12/28/2020 12:00:00 AM EDT Former Smoker completed Former Smoker eCW1 ([facility]) Smoking 11/29/2020 12:00:00 AM EDT Former Smoker completed Former Smoker eCW1 ([facility]) Smoking 11/29/2020 12:00:00 AM EDT Former Smoker completed Former Smoker eCW1 ([facility]) Smoking 10/24/2020 12:00:00 AM EDT Former Smoker completed Former Smoker eCW1 ([facility]) Smoking 10/24/2020 12:00:00 AM EDT Former Smoker completed Former Smoker eCW1 ([facility]) Smoking 10/24/2020 12:00:00 AM EDT Former Smoker completed Former Smoker eCW1 ([facility]) Smoking 10/24/2020 12:00:00 AM EDT Former Smoker completed Former Smoker eCW1 ([facility]) Smoking 10/24/2020 12:00:00 AM EDT Former Smoker completed Former Smoker eCW1 ([facility]) Smoking 09/26/2020 12:00:00 AM EDT Former Smoker completed Former Smoker eCW1 ([facility]) Smoking 09/11/2020 12:00:00 AM EDT Former Smoker completed Former Smoker eCW1 ([facility]) Smoking 09/11/2020 12:00:00 AM EDT Former Smoker completed Former Smoker eCW1 ([facility]) Tobacco use and exposure 09/07/2020 12:00:00 AM EDT Never used co mpleted [facility] Smoking 09/07/2020 12:00:00 AM EDT Former smoker completed Former smoker [facility] Smoking 08/22/2020 12:00:00 AM EDT Former Smoker completed Former Smoker eCW1 ([facility]) Smoking 08/22/2020 12:00:00 AM EDT Former Smoker completed Former Smoker eCW1 ([facility]) Smoking 08/22/2020 12:00:00 AM EDT Former Smoker completed Former Smoker eCW1 ([facility]) Smoking 08/09/2020 12:00:00 AM EDT Former Smoker completed Former Smoker eCW1 ([facility]) Smoking 06/22/2020 12:00:00 AM EDT Former Smoker completed Former Smoker eCW1 ([facility]) Smoking 06/22/2020 12:00:00 AM EDT Former Smoker completed Former Smoker eCW1 ([facility]) Smoking 06/22/2020 12:00:00 AM EDT Former Smoker completed Former Smoker eCW1 ([facility]) Smoking 05/09/2020 12:00:00 AM EST Former Smoker completed Former Smoker eCW1 ([facility]) Smoking 05/09/2020 12:00:00 AM EST Former Smoker completed Former Smoker eCW1 ([facility]) Smoking 04/24/2020 12:00:00 AM EST Former Smoker completed Former Smoker eCW1 ([facility]) Smoking 04/24/2020 12:00:00 AM EST Former Smoker completed Former Smoker eCW1 ([facility]) Smoking 04/07/2020 12:00:00 AM EST Former Smoker completed Former Smoker eCW1 ([facility]) Smoking 03/24/2020 12:00:00 AM EST Former Smoker completed Former Smoker eCW1 ([facility]) Smoking 03/24/2020 12:00:00 AM EST Former Smoker completed Former Smoker eCW1 ([facility]) Smoking 03/24/2020 12:00:00 AM EST Former Smoker completed Former Smoker eCW1 ([facility]) Smoking 01/31/2020 12:00:00 AM EST Former Smoker completed Former Smoker eCW1 ([facility]) Smoking 01/31/2020 12:00:00 AM EST Former Smoker completed Former Smoker eCW1 ([facility]) Smoking 01/17/2020 12:00:00 AM EST Former Smoker completed Former Smoker eCW1 ([facility]) Smoking 01/17/2020 12:00:00 AM EST Former Smoker completed Former Smoker eCW1 ([facility]) Smoking 01/17/2020 12:00:00 AM EST Former Smoker completed Former Smoker eCW1 ([facility]) Smoking 01/03/2020 12:00:00 AM EST Former Smoker completed Former Smoker eCW1 ([facility]) Smoking 12/20/2019 12:00:00 AM EDT Former Smoker completed Former Smoker eCW1 ([facility]) Smoking 12/20/2019 12:00:00 AM EDT Former Smoker completed Former Smoker eCW1 ([facility]) Smoking 12/09/2019 12:00:00 AM EDT Former Smoker completed Former Smoker eCW1 ([facility]) Vital Signs ID Date Data Source UNK Name Value Range Interpretation Code Description Data Source(s) Systolic blood pressure 142 mm[Hg] 142 mm[Hg] M [facility] ([facility]) Diastolic blood pressure 76 mm[Hg] 76 mm[Hg] [facility] ([facility]) Body weight 250.00 [lb_av] 250.00 [lb_av] [facility] [place] body weight 166 [lb_av] 166 [lb_av] [facility] Body surface area Derived from formula 2.29 m2 2.[address] [facility] ([facility]) Heart rate 87 /min 87 /min [facility] ([facility]) Oxygen saturation in Arterial blood by Pulse oximetry 93 % 93 % [facility] ([facility]) Body height 70 [in_i] 70 [in_i] [facility] ([facility]) 5'10" Body mass index (BMI) [Ratio] 35.9 kg/m2 35.9 k g/m2 [facility] ([facility]) Body weight 113.400 kg 113.[address] [facility] ([facility]) Body mass index (BMI) [Ratio] 36.2 kg/m2 36.2 k g/m2 [facility] ([facility]) Systolic blood pressure 136 mm[Hg] 136 mm[Hg] [facility] [place] body weight 166 [lb_av] 166 [lb_av] [facility] T ([facility]) Body weight 114.307 kg 114.[address] [facility] ([facility]) Diastolic blood pressure 64 mm[Hg] 64 mm[Hg] [facility] ([facility]) Body height 70 [in_i] 70 [in_i] [facility] ([facility]) 5'10" Body weight 252.00 [lb_av] 252.00 [lb_av] [facility] T ([facility]) Body surface area Derived from formula 2.30 m2 2.[address] [facility] ([facility]) Body weight 249 [lb_av] 249 [lb_av] eCW1 ([facility]) Body weight 112.95 kg 112.95 kg W1 ([facility]) Body height 72 [in_i] 72 [in_i] eCW1 ([facility]) Body mass index (BMI) [Ratio] 33.77 kg/m2 33.77 kg/m2 W1 ([facility]) Heart rate 79 /min 79 /min eCW1 ([facility]) Respiratory rate 18 /min 18 /min eCW1 ([facility]) Body temperature 98.1 [degF] 98.1 [degF] eCW1 ( [facility]) Systolic blood pressure 102 mm[Hg] 102 mm[Hg] e CW1 ([facility]) Diastolic blood pressure 60 mm[Hg] 60 mm[Hg] eCW1 ([facility]) Body weight 249 [lb_av] 249 [lb_av] eCW1 ([facility]) Body height 72 [in_i] 72 [in_i] eCW1 ([facility]) Body mass index (BMI) [Ratio] 33.77 kg/m2 33.77 kg/m2 eCW1 ([facility]) Heart rate 86 /min 86 /min eCW1 ([facility]) Respiratory rate 18 /min 18 /min eCW1 ([facility]) Body temperature 96.8 [degF] 96.8 [degF] eCW1 ( [facility]) Systolic blood pressure 130 mm[Hg] 130 mm[Hg] e CW1 ([facility]) Diastolic blood pressure 68 mm[Hg] 68 mm[Hg] eCW1 ([facility]) Body weight 248.6 [lb_av] 248.6 [lb_av] eCW1 ([facility]) Body height 72 [in_i] 72 [in_i] eCW1 ([facility]) Body mass index (BMI) [Ratio] 33.71 kg/m2 33.71 kg/m2 eCW1 ([facility]) Heart rate 75 /min 75 /min eCW1 ([facility] hospital) Respiratory rate 18 /min 18 /min eCW1 ([facility]) Body temperature 97.0 [degF] 97.0 [degF] eCW1 ( [facility]) Systolic blood pressure 131 mm[Hg] 131 mm[Hg] e CW1 ([facility]) Diastolic blood pressure 66 mm[Hg] 66 mm[Hg] eCW1 ([facility]) Body weight 245.4 [lb_av] 245.4 [lb_av] eCW1 ([facility]) Body height 72 [in_i] 72 [in_i] eCW1 ([facility]) Body mass index (BMI) [Ratio] 33.28 kg/m2 33.28 kg/m2 eCW1 ([facility]) Heart rate 76 /min 76 /min eCW1 (Critical access hospital) Respiratory rate 18 /min 18 /min eCW1 ([facility]) Body temperature 96.8 [degF] 96.8 [degF] eCW1 ( [facility]) Systolic blood pressure 148 mm[Hg] 148 mm[Hg] e CW1 ([facility]) Diastolic blood pressure 78 mm[Hg] 78 mm[Hg] eCW1 ([facility]) Body weight 250.2 [lb_av] 250.2 [lb_av] eCW1 ([facility]) Body height 72 [in_i] 72 [in_i] eCW1 ([facility]) Body mass index (BMI) [Ratio] 33.93 kg/m2 33.93 kg/m2 eCW1 ([facility]) Heart rate 74 /min 74 /min eCW1 (Critical access hospital) Respiratory rate 18 /min 18 /min eCW1 ([facility]) Body temperature 97.9 [degF] 97.9 [degF] eCW1 ( [facility]) Systolic blood pressure 153 mm[Hg] 153 mm[Hg] e CW1 ([facility]) Diastolic blood pressure 72 mm[Hg] 72 mm[Hg] eCW1 ([facility]) Body weight 250 [lb_av] 250 [lb_av] eCW1 ([facility]) Body height 72 [in_i] 72 [in_i] eCW1 ([facility]) Body mass index (BMI) [Ratio] 33.90 kg/m2 33.90 kg/m2 eCW1 ([facility]) Heart rate 87 /min 87 /min eCW1 (Critical access hospital) Respiratory rate 18 /min 18 /min eCW1 ([facility]) Body temperature 97.1 [degF] 97.1 [degF] eCW1 ( [facility]) Systolic blood pressure 140 mm[Hg] 140 mm[Hg] e CW1 ([facility]) Diastolic blood pressure 72 mm[Hg] 72 mm[Hg] eCW1 ([facility]) Systolic blood pressure 132 mm[Hg] 132 mm[Hg] M EDENT ([facility]) Diastolic blood pressure 76 mm[Hg] 76 mm[Hg] MED[facility] ([facility]) Heart rate 82 /min 82 /min [facility] ([facility]) Body weight 247.38 [lb_av] 247.38 [lb_av] [facility] T ([facility]) Body weight 112.209 kg 112.[address] [facility] ([facility]) Body mass index (BMI) [Ratio] 35.5 kg/m2 35.5 k g/m2 [facility] ([facility]) [place] body weight 166 [lb_av] 166 [lb_av] [facility] T ([facility]) Body surface area Derived from formula 2.28 m2 2.[address] [facility] ([facility]) Oxygen saturation in Arterial blood by Pulse oximetry 97 % 97 % [facility] ([facility]) Body height 70 [in_i] 70 [in_i] [facility] ([facility]) 5'10" Oxygen saturation in Arterial blood by Pulse oximetry 97 % 97 % [facility] ([facility]) Body height 70 [in_i] 70 [in_i] [facility] ([facility]) 5'10" Body weight 247.38 [lb_av] 247.38 [lb_av] [facility] ([facility]) Body mass index (BMI) [Ratio] 35.5 kg/m2 35.5 k g/m2 [facility] ([facility]) [place] body weight 166 [lb_av] 166 [lb_av] [facility] ([facility]) Body weight 112.209 kg 112.[address] [facility] ([facility]) Body surface area Derived from formula 2.28 m2 2.[address] [facility] ([facility]) Body weight 250.6 [lb_av] 250.6 [lb_av] eCW1 ([facility]) Body height 72 [in_i] 72 [in_i] eCW1 ([facility]) Body mass index (BMI) [Ratio] 33.98 kg/m2 33.98 kg/m2 eCW1 ([facility]) Heart rate 78 /min 78 /min eCW1 ([facility]) Respiratory rate 18 /min 18 /min eCW1 ([facility]) Body temperature 98.6 [degF] 98.6 [degF] eCW1 ( [facility]) Systolic blood pressure 135 mm[Hg] 135 mm[Hg] e CW1 ([facility]) Diastolic blood pressure 65 mm[Hg] 65 mm[Hg] eCW1 ([facility]) Body height 72 [in_i] 72 [in_i] [facility] ([facility] 6'0" Body weight 248.12 [lb_av] 248.12 [lb_av] [facility] ([facility]) Body mass index (BMI) [Ratio] 33.6 kg/m2 33.6 k g/m2 [facility] ([facility]) Body temperature 97.3 [degF] 97.3 [degF] [facility] ([facility]) Systolic blood pressure 151 mm[Hg] 151 mm[Hg] M [facility]ENT ([facility]) Diastolic blood pressure 72 mm[Hg] 72 mm[Hg] [facility] ([facility]) Heart rate 85 /min 85 /min [facility] ([facility]) Oxygen saturation in Arterial blood by Pulse oximetry 95 % 95 % [facility] ([facility]) Body weight 238 [lb_av] 238 [lb_av] eCW1 ([facility]) Body height 72 [in_i] 72 [in_i] eCW1 ([facility]) Body mass index (BMI) [Ratio] 32.28 kg/m2 32.28 kg/m2 eCW1 ([facility]) Heart rate 89 /min 89 /min eCW1 ([facility] hospital) Respiratory rate 18 /min 18 /min eCW1 ([facility]) Body temperature 95.6 [degF] 95.6 [degF] eCW1 ( [facility]) Systolic blood pressure 144 mm[Hg] 144 mm[Hg] e CW1 ([facility]) Diastolic blood pressure 79 mm[Hg] 79 mm[Hg] eCW1 ([facility]) Oxygen saturation in Arterial blood by Pulse oximetry 98 % 98 % [facility]) [place] body weight 166 [lb_av] 166 [lb_av] [facility] ([facility]) Body temperature 96.5 [degF] 96.5 [degF] [facility] ([facility]) Body height 70 [in_i] 70 [in_i] [facility] ([facility]) 5'10" Body weight 235.50 [lb_av] 235.50 [lb_av] [facility] T ([facility]) Body mass index (BMI) [Ratio] 33.8 kg/m2 33.8 k g/m2 [facility] ([facility]) Systolic blood pressure 118 mm[Hg] 118 mm[Hg] [facility] Body weight 106.823 kg 106.[address] [facility] ([facility]) Body surface area Derived from formula 2.24 m2 2.[address] [facility] ([facility]) Diastolic blood pressure 72 mm[Hg] 72 mm[Hg] [facility] ([facility]) Heart rate 67 /min 67 /min [facility] ([facility]) Oxygen saturation in Arterial blood by Pulse oximetry 98 % 98 % [facility] ([facility]) Body temperature 96.5 [degF] 96.5 [degF] [facility] ([facility]) Body height 70 [in_i] 70 [in_i] [facility] ([facility]) 5'10" Body weight 235.50 [lb_av] 235.50 [lb_av] [facility] T ([facility]) Body mass index (BMI) [Ratio] 33.8 kg/m2 33.8 k g/m2 [facility] ([facility]) [place] body weight 166 [lb_av] 166 [lb_av] [facility] ([facility]) Body weight 106.823 kg 106.[address] [facility] ([facility]) Body surface area Derived from formula 2.24 m2 2.24 m2 [facility] ([facility], ) Body weight 234 [lb_av] 234 [lb_av] eCW1 ([facility]) Body height 72 [in_i] 72 [in_i] eCW1 ([facility]) Body mass index (BMI) [Ratio] 31.73 kg/m2 31.73 kg/m2 eCW1 ([facility]) Heart rate 72 /min 72 /min eCW1 ([facility]) Respiratory rate 18 /min 18 /min eCW1 ([facility]) Body temperature 97.6 [degF] 97.6 [degF] eCW1 ( [facility]) Systolic blood pressure 116 mm[Hg] 116 mm[Hg] e CW1 ([facility]) Diastolic blood pressure 56 mm[Hg] 56 mm[Hg] eCW1 ([facility]) Oxygen saturation in Arterial blood by Pulse oximetry 98 % 98 % [facility] ([facility]) Body height 72 [in_i] 72 [in_i] [facility] ([facility]) 6'0" Body weight 237.50 [lb_av] 237.50 [lb_av] [facility] ([facility]) Body mass index (BMI) [Ratio] 32.2 kg/m2 32.2 k g/m2 [facility] ([facility]) Body temperature 97.2 [degF] 97.2 [degF] [facility] ([facility]) Systolic blood pressure 134 mm[Hg] 134 mm[Hg] M [facility] ([facility]) Diastolic blood pressure 83 mm[Hg] 83 mm[Hg] [facility] ([facility]) Heart rate 85 /min 85 /min [facility] ([facility]) Body weight 234.8 [lb_av] 234.8 [lb_av] eCW1 ([facility]) Body height 72 [in_i] 72 [in_i] eCW1 ([facility]) Body mass index (BMI) [Ratio] 31.84 kg/m2 31.84 kg/m2 eCW1 ([facility]) Heart rate 84 /min 84 /min eCW1 ([facility]) Respiratory rate 18 /min 18 /min eCW1 ([facility]) Body temperature 97.1 [degF] 97.1 [degF] eCW1 ( [facility]) Systolic blood pressure 139 mm[Hg] 139 mm[Hg] e CW1 ([facility]) Diastolic blood pressure 67 mm[Hg] 67 mm[Hg] eCW1 ([facility]) Body weight 238.0 [lb_av] 238.0 [lb_av] eCW1 ([facility]) Body height 72 [in_i] 72 [in_i] eCW1 ([facility]) Body mass index (BMI) [Ratio] 32.28 kg/m2 32.28 kg/m2 eCW1 ([facility]) Heart rate 101 /min 101 /min eCW1 ([facility] access hospital) Respiratory rate 18 /min 18 /min eCW1 ([facility]) Body temperature 97.0 [degF] 97.0 [degF] eCW1 ( [facility]) Systolic blood pressure 128 mm[Hg] 128 mm[Hg] e CW1 ([facility]) Diastolic blood pressure 59 mm[Hg] 59 mm[Hg] eCW1 ([facility]) Body height 70 [in_i] 70 [in_i] [facility] ([facility], ) 5'10" Systolic blood pressure 102 mm[Hg] 102 mm[Hg] M EDENT ([facility], ) Body temperature 97.4 [degF] 97.4 [degF] [facility] ([facility], ) Body weight 235.00 [lb_av] 235.00 [lb_av] MEDEN T ([facility], ) Body mass index (BMI) [Ratio] 33.7 kg/m2 33.7 k g/m2 [facility] ([facility], ) [place] body weight 166 [lb_av] 166 [lb_av] [facility] T ([facility]) Body weight 106.596 kg 106.596 kg [facility] ([facility]) Body surface area Derived from formula 2.24 m2 2.[address] [facility] ([facility]) Diastolic blood pressure 72 mm[Hg] 72 mm[Hg] [facility]) Heart rate 93 /min 93 /min [facility] ([facility]) Oxygen saturation in Arterial blood by Pulse oximetry 97 % 97 % [facility] ([facility]) Body weight 244.4 [lb_av] 244.4 [lb_av] eCW1 ([facility]) Body height 72 [in_i] 72 [in_i] eCW1 ([facility]) Body mass index (BMI) [Ratio] 33.14 kg/m2 33.14 kg/m2 eCW1 ([facility]) Heart rate 99 /min 99 /min eCW1 ([facility]) Respiratory rate 18 /min 18 /min eCW1 ([facility]) Body temperature 96.4 [degF] 96.4 [degF] eCW1 ( [facility]) Systolic blood pressure 118 mm[Hg] 118 mm[Hg] e CW1 ([facility]) Diastolic blood pressure 59 mm[Hg] 59 mm[Hg] eCW1 ([facility]) Body weight 244.2 [lb_av] 244.2 [lb_av] eCW1 ([facility]) Body height 72 [in_i] 72 [in_i] eCW1 ([facility]) Body mass index (BMI) [Ratio] 33.12 kg/m2 33.12 kg/m2 W1 ([facility]) Heart rate 98 /min 98 /min eCW1 ([facility] hospital) Respiratory rate 18 /min 18 /min eCW1 ([facility]) Body temperature 97.8 [degF] 97.8 [degF] eCW1 ( [facility]) Systolic blood pressure 132 mm[Hg] 132 mm[Hg] e CW1 ([facility]) Diastolic blood pressure 80 mm[Hg] 80 mm[Hg] eCW1 ([facility]) Body weight 249.6 [lb_av] 249.6 [lb_av] eCW1 ([facility]) Body height 72 [in_i] 72 [in_i] eCW1 ([facility]) Body mass index (BMI) [Ratio] 33.85 kg/m2 33.85 kg/m2 eCW1 ([facility]) Heart rate 76 /min 76 /min eCW1 ([facility]) Respiratory rate 18 /min 18 /min eCW1 ([facility]) Body temperature 96.0 [degF] 96.0 [degF] eCW1 ( [facility]) Systolic blood pressure 129 mm[Hg] 129 mm[Hg] e CW1 ([facility]) Diastolic blood pressure 62 mm[Hg] 62 mm[Hg] eCW1 ([facility]) Diastolic blood pressure 67 mm[Hg] 67 mm[Hg] eCW1 ([facility]) Body weight 248.8 [lb_av] 248.8 [lb_av] eCW1 ([facility]) Body height 72 [in_i] 72 [in_i] eCW1 ([facility]) Body mass index (BMI) [Ratio] 33.74 kg/m2 33.74 kg/m2 eCW1 ([facility]) Heart rate 85 /min 85 /min eCW1 ([facility]) Respiratory rate 18 /min 18 /min eCW1 ([facility]) Body temperature 96.0 [degF] 96.0 [degF] eCW1 ( [facility]) Systolic blood pressure 139 mm[Hg] 139 mm[Hg] e CW1 ([facility]) Body temperature 97.1 [degF] 97.1 [degF] eCW1 ( [facility]) Body mass index (BMI) [Ratio] 34.31 kg/m2 34.31 kg/m2 eCW1 ([facility]) Body weight 253.0 [lb_av] 253.0 [lb_av] eCW1 ([facility]) Body height 72 [in_i] 72 [in_i] eCW1 ([facility]) Diastolic blood pressure 69 mm[Hg] 69 mm[Hg] eCW1 ([facility]) Heart rate 82 /min 82 /min eCW1 ([facility]) Respiratory rate 18 /min 18 /min eCW1 ([facility]) Systolic blood pressure 148 mm[Hg] 148 mm[Hg] e CW1 ([facility]) Patient Treatment Plan of Care Planned Activity Planned Date Details Description Data Source (s) Ciprofloxacin 3 MG/ML Ophthalmic Solution 11/29/2020 12:00:00 AM ED T eCW1 ([facility]) doxycycline hyclate 100 MG Oral Tablet 11/29/2020 12:00:00 AM EDT eCW1 ([facility]) Ciprofloxacin 3 MG/ML Ophthalmic Solution 11/29/2020 12:00:00 AM ED T eCW1 ([facility]) doxycycline hyclate 100 MG Oral Tablet 11/29/2020 12:00:00 AM EDT eCW1 ([facility]) Aspirin 81 MG Delayed Release Oral Tablet 10/24/2020 12:00:00 AM ED T eCW1 ([facility]) Aspirin 81 MG Delayed Release Oral Tablet 10/24/2020 12:00:00 AM ED T eCW1 ([facility]) Aspirin 81 MG Delayed Release Oral Tablet 10/24/2020 12:00:00 AM ED T eCW1 ([facility]) Aspirin 81 MG Delayed Release Oral Tablet 10/24/2020 12:00:00 AM ED T eCW1 ([facility]) Aspirin 81 MG Delayed Release Oral Tablet 10/24/2020 12:00:00 AM ED T eCW1 ([facility]) Nucala 100 MG/ML Subcutaneous Solution Auto-injector 12:00:00 AM [facility] Vitamin B 12 1 MG Extended Release Oral Tablet 08/23/2020 12:00:00 AM [facility] Vitamin B12 1000 MCG 08/23/2020 12:00:00 AM EDT eC ([facility]) Vitamin B12 1000 MCG 08/23/2020 12:00:00 AM EDT [facility] ([facility]) Vitamin B12 1000 MCG 08/23/2020 12:00:00 AM EDT [facility] ([facility]) 60 ACTUAT Fluticasone propionate 0.1 MG/ ACTUAT / salmeterol 0.05 MG/ACTUAT Dry Powder Inhaler 08/10/2020 12:00:00 AM EDT [facility] Pravastatin Sodium 40 MG Oral Tablet 08/07/2020 12:00:00 AM [facility] Cephalexin 500 MG Oral Capsule 08/04/2020 12:00:00 AM EDT [facility] ([facility]) sitagliptin 50 MG Oral Tablet [Januvia] 08/03/2020 12:00:00 AM [facility] Amlodipine 10 MG Oral Tablet 07/12/2020 12:00:00 AM [facility] 24 HR Oxybutynin chloride 10 MG Extended Release Oral Tablet 03/19/2020 12:00:[address] [facility] Ibuprofen 600 MG Oral Tablet 01/19/2020 12:00:00 AM [facility]
[2021-02-02] MEDS ORDERED: propofoL 200 MG/20 ML VIAL As Ordered ONE (08:17)
[2021-02-02] MEDS ORDERED: LIDOCAINE 2% 100MG/5ML SDV (FOR ANES.) As Ordered ONE (08:17)
--- NOTE | 2021-02-02 09:30 | ROOR ---
Patient Name: Brad Branch Procedure Date: 02/02/2021 8:51 AM Date of : 1945 Age: 75 Room: [facility] Gender: Male Note Status: Finalized Procedure: Colonoscopy Indications: Screening for colorectal malignant neoplasm Providers: Shaka Ortega MD Referring MD: Jojo Alvarado MD Requesting Provider: Medicines: Monitored Anesthesia Care Complications: No immediate complications. Procedure: Pre-Anesthesia Assessment: - Prior to the procedure, a History and Physical was performed, and patient medications and allergies were reviewed. The patient is competent. The risks and benefits of the procedure and the sedation options and risks were discussed with the patient. All questions were answered and informed consent was obtained. Patient identification and proposed procedure were verified by the physician, the nurse and the anesthesiologist in the procedure room. Mental Status Examination: alert and oriented. Airway Examination: normal oropharyngeal airway and neck mobility. Respiratory Examination: clear to auscultation. CV Examination: normal. Prophylactic Antibiotics: The patient does not require prophylactic antibiotics. Prior Anticoagulants: The patient has taken no previous anticoagulant or antiplatelet agents. ASA Grade Assessment: II - A patient with mild systemic disease. After reviewing the risks and benefits, the patient was deemed in satisfactory condition to undergo the procedure. The anesthesia plan was to use monitored anesthesia care (MAC). Immediately prior to administration of medications, the patient was re-assessed for adequacy to receive sedatives. The heart rate, respiratory rate, oxygen saturations, blood pressure, adequacy of pulmonary ventilation, and response to care were monitored throughout the procedure. The physical status of the patient was re-assessed after the procedure. The Colonoscope was introduced through the anus and advanced to the terminal ileum, with identification of the appendiceal orifice and IC valve. The colonoscopy was performed without difficulty. The patient tolerated the procedure well. The quality of the bowel preparation was fair except the ascending colon was poor. The terminal ileum, ileocecal valve, appendiceal orifice, and rectum were photographed. Scope insertion time was 2 minutes. Scope withdrawal time was 8 minutes. The total duration of the procedure was 10 minutes. Findings: The perianal and digital rectal examinations were normal. The terminal ileum appeared normal. A 10 mm polyp was found in the transverse colon. The polyp was sessile. The polyp was removed with a cold snare. Resection and retrieval were complete. To close a defect after polypectomy, one hemostatic clip was successfully placed. There was no bleeding at the end of the procedure. Verification of patient identification for the specimen was done by the physician and nurse using the patient's name, date and medical record number. Estimated blood loss was minimal. Multiple small and large-mouthed diverticula were found in the sigmoid colon. There was no evidence of diverticular bleeding. Non-bleeding external and internal hemorrhoids were found during retroflexion. The hemorrhoids were medium-sized. Impression: - The examined portion of the ileum was normal. - One 10 mm polyp in the transverse colon, removed with a cold snare. Resected and retrieved. Clip was placed. - Moderate diverticulosis in the sigmoid colon. There was no evidence of diverticular bleeding. - Non-bleeding external and internal hemorrhoids. Recommendation: - Patient has a contact number available for emergencies. The signs and symptoms of potential delayed complications were discussed with the patient. Return to normal activities tomorrow. Written discharge instructions were provided to the patient. - High fiber diet. - Use fiber, for example Citrucel, Fibercon, Konsyl or Metamucil. - Continue present medications. - Await pathology results. - Repeat colonoscopy in 1 year because the bowel preparation was poor and for surveillance based on pathology results. - Telephone GI clinic for pathology results in 2 weeks. - Return to GI clinic in 1 year. - Return to primary care physician. Procedure Code(s): --- Professional --- 45049, Colonoscopy, flexible; with removal of tumor(s), polyp(s), or other lesion(s) by snare technique Diagnosis Code(s): --- Professional --- Z12.11, Encounter for screening for malignant neoplasm of colon K64.8, Other hemorrhoids K63.5, Polyp of colon K57.30, Diverticulosis of large intestine without perforation or abscess without bleeding CPT copyright 2019 [employer]. All rights reserved. The codes documented in this report are preliminary and upon data conversion analyst review may be revised to meet current compliance requirements. Shaka Ortega MD Shaka Ortega MD 02/02/2021 9:29:34 AM Electronically signed by Shaka Ortega MD Number of Addenda: 0 Note Initiated On: 02/02/2021 8:51 AM Estimated Blood Loss: Estimated blood loss was minimal.
[2021-02-02 09:46] VITALS: BP 127/62
== END 2021-02-02 10:00 | disposition home or self-care (01) ==
LOC: M OPP 07:41
PROVIDERS: ATTEND Internal Medicine Gastroenterology
DX: Z12.11 Encounter for screening for malignant neoplasm of colon (principal); D12.6 Benign neoplasm of colon, unspecified; K57.30 Diverticulosis of large intestine without perforation or abscess without bleeding; K64.8 Other hemorrhoids; Z79.82 Long term (current) use of aspirin; Z79.899 Other long term (current) drug therapy; Z87.891 Personal history of nicotine dependence; Z85.46 Personal history of malignant neoplasm of prostate; Z80.8 Family history of malignant neoplasm of other organs or systems

== ENCOUNTER → 2021-03-07 | Outpatient (CLI) | payer MEDICARE, MEDICAID ==
[~2021-03-07] MED LIST changes: -NS 1,000 ML IV ONE
== END ==
LOC: M LABSMTC 12:30
PROVIDERS: ATTEND Anesthesiology
DX: Z20.828 Contact with and (suspected) exposure to other viral communicable diseases (principal); Z11.52 Encounter for screening for COVID-19

== ENCOUNTER → 2021-03-07 | Outpatient (CLI) | payer MEDICARE, MEDICAID ==
[2021-03-07 13:19] LABS: BASO # 0.1 10^3/uL (0.0-0.2); BASO % 0.5 % (0.0-1.0); EOS # 0.1 10^3/uL (0.0-0.5); EOS % 1.2 % (0.0-3.0); HEMOGLOBIN 13.9 g/dl (13.5-17.5); LYMPH # 2.5 10^3/uL (1.5-5.0); LYMPH % 23.6 % (24.0-44.0); MEAN CORPUSCULAR HEMOGLOBIN 29.2 pg (27.0-33.0); MEAN CORPUSCULAR HGB CONC 33.1 g/dl (32.0-36.5); MEAN CORPUSCULAR VOLUME 88.2 fl (80.0-96.0); MONO # 1.2 10^3/uL (0.0-0.8); MONO % 11.1 % (2.0-8.0); NEUTROPHILS # 6.6 10^3/uL (1.5-8.5); NEUTROPHILS % 63.1 % (36.0-66.0); PLATELET COUNT, AUTOMATED 276 10^3/uL (150-450); RED BLOOD COUNT 4.76 10^6/uL (4.30-6.10); WHITE BLOOD COUNT 10.5 10^3/uL (4.0-10.0)
[2021-03-07 14:14] LABS: ALBUMIN 3.8 GM/DL (3.2-5.2); ALT/SGPT 190 U/L (12-78); BILIRUBIN,TOTAL 0.5 MG/DL (0.2-1.0); BLOOD UREA NITROGEN 25 MG/DL (7-18); CALCIUM LEVEL 9.1 MG/DL (8.8-10.2); CARBON DIOXIDE LEVEL 29 MEQ/L (21-32); CHLORIDE LEVEL 107 MEQ/L (98-107); GLOMERULAR FILTRATION RATE > 60.0 (>42); GLUCOSE, FASTING 112 MG/DL (70-100); POTASSIUM SERUM 4.2 MEQ/L (3.5-5.1); SODIUM LEVEL 141 MEQ/L (136-145); TOTAL PROTEIN 7.2 GM/DL (6.4-8.2)
== END ==
LOC: M LAB 12:30
PROVIDERS: ATTEND Internal Medicine
DX: D72.10 Eosinophilia, unspecified (principal)

== ENCOUNTER → 2021-03-21 | Outpatient (CLI) | payer MEDICARE, MEDICAID ==
[~2021-03-21] MED LIST changes: -OMEP-221 PO; +OMEP40CA5 PO
[2021-03-21 16:55] LABS: ALBUMIN 3.5 GM/DL (3.2-5.2); BILIRUBIN,DIRECT 0.1 MG/DL (0.0-0.2); BILIRUBIN,TOTAL 0.5 MG/DL (0.2-1.0)
== END ==
LOC: M LAB 15:00
PROVIDERS: ATTEND Internal Medicine
DX: Z79.899 Other long term (current) drug therapy (principal)

== ENCOUNTER → 2021-04-03 | Outpatient (CLI) | payer MEDICARE, MEDICAID | LOC: M PAIN 14:00 | PROVIDERS: ATTEND Nurse Practitioner Family | DX: M46.08 Spinal enthesopathy, sacral and sacrococcygeal region (principal); M51.16 Intervertebral disc disorders with radiculopathy, lumbar region; G89.29 Other chronic pain; K21.9 Gastro-esophageal reflux disease without esophagitis; Z87.891 Personal history of nicotine dependence; Z79.82 Long term (current) use of aspirin; Z79.899 Other long term (current) drug therapy ==

== ENCOUNTER → 2021-04-30 | Outpatient (CLI) | payer MEDICARE, MEDICAID | LOC: M RAD 10:33 | PROVIDERS: ATTEND Nurse Practitioner Family | DX: M46.08 Spinal enthesopathy, sacral and sacrococcygeal region (principal); M51.36 Other intervertebral disc degeneration, lumbar region; M51.37 Other intervertebral disc degeneration, lumbosacral region ==

== ENCOUNTER → 2021-05-10 | Outpatient (CLI) | payer MEDICARE, MEDICAID | LOC: M PLALAB 15:06 → M PLAIMG 15:06 | PROVIDERS: ATTEND Urology | DX: N20.0 Calculus of kidney (principal); R31.0 Gross hematuria ==

== ENCOUNTER → 2021-05-10 | Outpatient (CLI) | payer MEDICARE, MEDICAID | LOC: M PLALAB 15:03 | PROVIDERS: ATTEND Nurse Practitioner Women's Health | DX: Z85.46 Personal history of malignant neoplasm of prostate (principal) ==

== ENCOUNTER → 2021-05-23 | Outpatient (REF) | payer MEDICARE, MEDICAID | LOC: M SFHCPLAZ 12:46 | PROVIDERS: ATTEND Family Medicine | DX: B34.9 Viral infection, unspecified (principal) ==

== ENCOUNTER → 2021-05-28 | Outpatient (CLI) | payer MEDICARE, MEDICAID | LOC: M PAIN 14:45 | PROVIDERS: ATTEND Nurse Practitioner Family | DX: M51.16 Intervertebral disc disorders with radiculopathy, lumbar region (principal); G89.29 Other chronic pain; E11.9 Type 2 diabetes mellitus without complications; Z87.891 Personal history of nicotine dependence; Z79.82 Long term (current) use of aspirin; Z79.899 Other long term (current) drug therapy ==

== ENCOUNTER → 2021-05-31 | Outpatient (CLI) | payer MEDICARE, MEDICAID ==
[2021-05-31 16:11] LABS: MALB URINE SIEMENS 31.8 MG/L; MAU/CREAT RATIO 12.3 MCG/MG (0.0-30.0)
[2021-05-31 16:18] LABS: ALBUMIN 3.8 GM/DL (3.2-5.2); ALT/SGPT 94 U/L (12-78); BILIRUBIN,TOTAL 0.5 MG/DL (0.2-1.0); BLOOD UREA NITROGEN 19 MG/DL (7-18); CALCIUM LEVEL 9.3 MG/DL (8.8-10.2); CARBON DIOXIDE LEVEL 32 MEQ/L (21-32); CHLORIDE LEVEL 107 MEQ/L (98-107); CHOLESTEROL LEVEL 131 MG/DL (<200); CHOLESTEROL RISK RATIO 4.093 (<5); CREATININE FOR GFR 1.18 MG/DL (0.70-1.30); GLOMERULAR FILTRATION RATE > 60.0 (>42); GLUCOSE, FASTING 84 MG/DL (70-100); HDL CHOLESTEROL 32 MG/DL (>40); LDL CHOLESTEROL 74 MG/DL (<100); NON-HDL-C 99 MG/DL; POTASSIUM SERUM 4.4 MEQ/L (3.5-5.1); SODIUM LEVEL 142 MEQ/L (136-145); TOTAL 25(OH) VITAMIN D 29.9 NG/ML (30.0-100.0); TOTAL PROTEIN 7.6 GM/DL (6.4-8.2); TRIGLYCERIDES LEVEL 126 MG/DL (<150)
[2021-05-31 17:40] LABS: HEMOGLOBIN A1c 6.5 %
== END ==
LOC: M LAB 14:38
PROVIDERS: ATTEND Family Medicine
DX: I10 Essential (primary) hypertension (principal); E78.1 Pure hyperglyceridemia; E11.9 Type 2 diabetes mellitus without complications; E55.9 Vitamin D deficiency, unspecified; Z79.51 Long term (current) use of inhaled steroids; Z79.899 Other long term (current) drug therapy

== ENCOUNTER → 2021-06-07 | Outpatient (CLI) | payer MEDICARE, MEDICAID ==
[2021-06-07 15:59] LABS: INR 1.08; PROTHROMBIN TIME 14.4 SECONDS (12.7-14.5)
[2021-06-07 16:19] LABS: FERRITIN 37 NG/ML (26-388); IRON (FE) 102 UG/DL (65-175); PERCENT SATURATION 30.5 % (19.7-50.0); TOTAL IRON BINDING CAPACITY 334 UG/DL (250-450)
[2021-06-07 16:36] LABS: HEPATITIS B SURFACE ANTIGEN NEGATIVE (NEGATIVE)
== END ==
LOC: M LAB 15:04
PROVIDERS: ATTEND Family Medicine
DX: R74.01 Elevation of levels of liver transaminase levels (principal); Z79.01 Long term (current) use of anticoagulants
CPT/HCPCS: 36415; 82728; 83550; 85610; 86704; 87340; G0472

== ENCOUNTER → 2021-06-11 | Outpatient (CLI) | payer MEDICARE, MEDICAID | LOC: M WHC 08:16 | PROVIDERS: ATTEND Family Medicine | DX: R74.01 Elevation of levels of liver transaminase levels (principal); K76.0 Fatty (change of) liver, not elsewhere classified ==

== ENCOUNTER → 2021-07-16 | Outpatient (CLI) | payer MEDICARE, MEDICAID | LOC: M PLAIMG 12:47 | PROVIDERS: ATTEND Internal Medicine Pulmonary Disease | DX: 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 [Churg-Strauss] (principal) ==

== ENCOUNTER → 2021-07-31 | Outpatient (CLI) | payer MEDICARE, MEDICAID ==
[~2021-07-31] MED LIST changes: +ACET-861 PO; +ALBU2.5V10; +ALBU2.5V10 INH; -ALBU83IN; -ALBU83IN INH; +ECOT81TA5 PO; +OCEA0.654 NARES; +OXYB10TA23 PO; +TIZA2CAP PO
== END ==
LOC: M LABSMTC 10:23
PROVIDERS: ATTEND Anesthesiology
DX: Z01.812 Encounter for preprocedural laboratory examination (principal); Z20.822 Contact with and (suspected) exposure to COVID-19

== ENCOUNTER → 2021-08-03 | Outpatient (CLI) | payer MEDICARE, MEDICAID ==
[~2021-08-03] MED LIST changes: +ISOVUE-M 300 61% 15ML VIAL As Ordered ONE; +LIDOCAINE 1% SDV 30ML VIAL As Ordered ONE; +diazePAM 2 MG TAB As Ordered ONE; +methylPREDNISolone SUSP 40MG/ML 1ML VIAL (DEPO MEDROL) As Ordered ONE; +oxyCODONE 5MG TAB As Ordered ONE
[2021-08-03 13:30] VITALS: BP 156/74
== END ==
LOC: M IRPRO 11:28
PROVIDERS: ATTEND Anesthesiology
DX: M51.16 Intervertebral disc disorders with radiculopathy, lumbar region (principal); G89.29 Other chronic pain; E11.9 Type 2 diabetes mellitus without complications; M19.90 Unspecified osteoarthritis, unspecified site; Z87.891 Personal history of nicotine dependence
CPT/HCPCS: 62323; J1030; Q9967

== ENCOUNTER → 2021-08-20 | Outpatient (CLI) | payer MEDICARE, MEDICAID ==
[~2021-08-20] MED LIST changes: -ISOVUE-M 300 61% 15ML VIAL As Ordered ONE; -LIDOCAINE 1% SDV 30ML VIAL As Ordered ONE; -diazePAM 2 MG TAB As Ordered ONE; -methylPREDNISolone SUSP 40MG/ML 1ML VIAL (DEPO MEDROL) As Ordered ONE; -oxyCODONE 5MG TAB As Ordered ONE
[2021-08-20 16:17] LABS: HEMATOCRIT 38.2 % (42.0-52.0); HEMOGLOBIN 12.8 g/dl (13.5-17.5); MEAN CORPUSCULAR HEMOGLOBIN 29.5 pg (27.0-33.0); MEAN CORPUSCULAR HGB CONC 33.5 g/dl (32.0-36.5); PLATELET COUNT, AUTOMATED 251 10^3/uL (150-450); RED BLOOD COUNT 4.34 10^6/uL (4.30-6.10); WHITE BLOOD COUNT 6.7 10^3/uL (4.0-10.0)
[2021-08-20 16:49] LABS: MALB URINE SIEMENS 19.9 MG/L; MAU/CREAT RATIO 14.7 MCG/MG (0.0-30.0)
[2021-08-20 16:59] LABS: ALBUMIN 3.4 GM/DL (3.2-5.2); ALT/SGPT 83 U/L (12-78); BILIRUBIN,TOTAL 0.5 MG/DL (0.2-1.0); BLOOD UREA NITROGEN 17 MG/DL (7-18); C REACTIVE PROTEIN QUANTITATIV 0.84 MG/DL (0.00-0.30); CALCIUM LEVEL 8.6 MG/DL (8.8-10.2); CARBON DIOXIDE LEVEL 26 MEQ/L (21-32); CHLORIDE LEVEL 108 MEQ/L (98-107); CHOLESTEROL LEVEL 117 MG/DL (<200); CREATININE FOR GFR 1.02 MG/DL (0.70-1.30); FOLATE > 24.0 NG/ML; GLOMERULAR FILTRATION RATE > 60.0 (>42); GLUCOSE, FASTING 148 MG/DL (70-100); HDL CHOLESTEROL 30 MG/DL (>40); LDL CHOLESTEROL 62 MG/DL (<100); NON-HDL-C 87 MG/DL; POTASSIUM SERUM 4.2 MEQ/L (3.5-5.1); SODIUM LEVEL 140 MEQ/L (136-145); TOTAL 25(OH) VITAMIN D 34.4 NG/ML (30.0-100.0); TOTAL PROTEIN 7.1 GM/DL (6.4-8.2); TRIGLYCERIDES LEVEL 123 MG/DL (<150); VITAMIN B12 LEVEL 827 PG/ML
[2021-08-20 19:35] LABS: HEMOGLOBIN A1c 6.5 %
== END ==
LOC: M LAB 15:15
PROVIDERS: ATTEND Internal Medicine Hematology
DX: K75.81 Nonalcoholic steatohepatitis (NASH) (principal); Z79.899 Other long term (current) drug therapy

== ENCOUNTER → 2021-10-18 | Outpatient (CLI) | payer MEDICARE, MEDICAID | LOC: M PAIN 10:45 | PROVIDERS: ATTEND Nurse Practitioner Family | DX: G89.29 Other chronic pain (principal); M79.18 Myalgia, other site; Z85.46 Personal history of malignant neoplasm of prostate; I10 Essential (primary) hypertension; E78.00 Pure hypercholesterolemia, unspecified; E11.9 Type 2 diabetes mellitus without complications; K21.9 Gastro-esophageal reflux disease without esophagitis; E55.9 Vitamin D deficiency, unspecified; N32.81 Overactive bladder; E53.8 Deficiency of other specified B group vitamins; Z87.891 Personal history of nicotine dependence; Z87.442 Personal history of urinary calculi; Z79.82 Long term (current) use of aspirin; Z79.899 Other long term (current) drug therapy ==

== ENCOUNTER → 2021-11-08 | Outpatient (CLI) | payer MEDICARE, MEDICAID ==
[2021-11-08 16:24] LABS: HEMATOCRIT 39.9 % (42.0-52.0); MEAN CORPUSCULAR HEMOGLOBIN 29.1 pg (27.0-33.0); MEAN CORPUSCULAR HGB CONC 32.6 g/dl (32.0-36.5); MEAN CORPUSCULAR VOLUME 89.5 fl (80.0-96.0); PLATELET COUNT, AUTOMATED 272 10^3/uL (150-450); RED BLOOD COUNT 4.46 10^6/uL (4.30-6.10); WHITE BLOOD COUNT 6.8 10^3/uL (4.0-10.0)
[2021-11-08 16:56] LABS: ALBUMIN 3.5 GM/DL (3.2-5.2); ALT/SGPT 61 U/L (12-78); BILIRUBIN,DIRECT 0.2 MG/DL (0.0-0.2); BILIRUBIN,TOTAL 0.6 MG/DL (0.2-1.0); IRON (FE) 97 UG/DL (65-175); PERCENT SATURATION 28.9 % (19.7-50.0); TOTAL IRON BINDING CAPACITY 336 UG/DL (250-450); TOTAL PROTEIN 7.7 GM/DL (6.4-8.2)
[2021-11-08 17:36] LABS: HEPATITIS B SURFACE ANTIGEN NEGATIVE (NEGATIVE)
[2021-11-08 18:03] LABS: HEPATITIS B CORE ANTIBODY IGM NEGATIVE (NEGATIVE); HEPATITIS C VIRUS ABY INDEX 0.1 INDEX (<0.8)
[2021-11-13 16:10] LABS: ANCA-ATYPICAL <1:20 titer (Neg:<1:20); ANTI-MITOCHONDRIAL ANTIBODY <20.0 Units (0.0-20.0); ANTINUCLEAR ANTIBODIES DIRECT Negative (Negative); CERULOPLASMIN 21.9 mg/dL (16.0-31.0); CYTOPLASMIC NEUTROP AB ANCA-C <1:20 titer (Neg:<1:20); LIVER-KIDNEY MICROSOMAL ABY <20.1 Units (0.0-20.0); PERINUCLEAR AB ANCA-P <1:20 titer (Neg:<1:20)
== END ==
LOC: M LAB 15:30
PROVIDERS: ATTEND Physician Assistant Medical
DX: R74.01 Elevation of levels of liver transaminase levels (principal); Z79.899 Other long term (current) drug therapy

== ENCOUNTER → 2021-11-28 | Outpatient (CLI) | payer MEDICARE, MEDICAID | LOC: M RAD 07:56 | PROVIDERS: ATTEND Physician Assistant Medical | DX: K80.20 Calculus of gallbladder without cholecystitis without obstruction (principal); R74.01 Elevation of levels of liver transaminase levels; K76.0 Fatty (change of) liver, not elsewhere classified ==

== ENCOUNTER → 2021-12-23 | Outpatient (CLI) | payer MEDICARE, MEDICAID | LOC: M LABSMTC 10:21 | PROVIDERS: ATTEND Anesthesiology | DX: Z01.812 Encounter for preprocedural laboratory examination (principal); Z20.822 Contact with and (suspected) exposure to COVID-19 ==

== ENCOUNTER → 2021-12-27 | Outpatient (CLI) | payer MEDICARE, MEDICAID ==
[~2021-12-27] MED LIST changes: +BUPIVACAINE HCL 0.25% 10ML VIAL As Ordered ONE; +BUPIVACAINE HCL 0.25% 30ML VIAL As Ordered ONE; +TRIAMCINOLONE ACETONIDE SUSP 40 MG/ML VIAL (J3301) As Ordered ONE; +diazePAM 2 MG TAB As Ordered ONE; +oxyCODONE 5MG TAB As Ordered ONE
== END ==
LOC: M PAIN 08:00
PROVIDERS: ATTEND Anesthesiology
DX: M51.16 Intervertebral disc disorders with radiculopathy, lumbar region (principal); M79.18 Myalgia, other site; G89.29 Other chronic pain; I10 Essential (primary) hypertension; E11.9 Type 2 diabetes mellitus without complications; Z87.891 Personal history of nicotine dependence; Z79.82 Long term (current) use of aspirin; Z79.899 Other long term (current) drug therapy
CPT/HCPCS: 20553; J3301

== ENCOUNTER → 2022-01-02 | Outpatient (CLI) | payer MEDICARE, MEDICAID ==
[~2022-01-02] MED LIST changes: -BUPIVACAINE HCL 0.25% 10ML VIAL As Ordered ONE; -BUPIVACAINE HCL 0.25% 30ML VIAL As Ordered ONE; -TRIAMCINOLONE ACETONIDE SUSP 40 MG/ML VIAL (J3301) As Ordered ONE; -diazePAM 2 MG TAB As Ordered ONE; -oxyCODONE 5MG TAB As Ordered ONE
== END ==
LOC: M LABSMTC 11:32
PROVIDERS: ATTEND Anesthesiology
DX: Z01.812 Encounter for preprocedural laboratory examination (principal); Z11.52 Encounter for screening for COVID-19

== ENCOUNTER 2022-01-07 09:19 | Day surgery (SDC) | payer MEDICARE, MEDICAID ==
[~2022-01-07] VITALS: Ht 185.4 cm; Wt 100.2 kg
[~2022-01-07 09:19] MED LIST changes: +NS 1,000 ML IV ONE
[2022-01-07] MEDS ORDERED: LIDOCAINE 2% 100MG/5ML SDV (FOR ANES.) As Ordered ONE (10:47)
[2022-01-07] MEDS ORDERED: propofoL 200 MG/20 ML VIAL As Ordered ONE (10:47)
[2022-01-07] MEDS ORDERED: SIMETHICONE 40MG/0.6ML DROPS 30ML As Ordered ONE (10:47)
[2022-01-07 11:11] VITALS: BP 167/90
== END 2022-01-07 11:39 | disposition home or self-care (01) ==
LOC: M OPP 09:19
PROVIDERS: ATTEND Internal Medicine Gastroenterology
DX: Z86.010 Personal history of colon polyps (principal); D12.3 Benign neoplasm of transverse colon; K64.4 Residual hemorrhoidal skin tags; K64.8 Other hemorrhoids; Z79.02 Long term (current) use of antithrombotics/antiplatelets; Z79.1 Long term (current) use of non-steroidal anti-inflammatories (NSAID); Z79.51 Long term (current) use of inhaled steroids; Z79.82 Long term (current) use of aspirin; Z79.83 Long term (current) use of bisphosphonates; Z79.899 Other long term (current) drug therapy; Z87.891 Personal history of nicotine dependence; Z85.46 Personal history of malignant neoplasm of prostate; M19.90 Unspecified osteoarthritis, unspecified site; 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 [Churg-Strauss]; I10 Essential (primary) hypertension; K74.60 Unspecified cirrhosis of liver; Z80.8 Family history of malignant neoplasm of other organs or systems

== ENCOUNTER → 2022-01-11 | Outpatient (CLI) | payer MEDICARE, MEDICAID ==
[~2022-01-11] MED LIST changes: -NS 1,000 ML IV ONE
== END ==
LOC: M PAIN 11:15
PROVIDERS: ATTEND Nurse Practitioner Family
DX: M51.16 Intervertebral disc disorders with radiculopathy, lumbar region (principal); G89.29 Other chronic pain; I10 Essential (primary) hypertension; E11.9 Type 2 diabetes mellitus without complications; K21.9 Gastro-esophageal reflux disease without esophagitis; Z87.891 Personal history of nicotine dependence; Z79.82 Long term (current) use of aspirin; Z79.899 Other long term (current) drug therapy

== ENCOUNTER → 2022-03-19 | Outpatient (CLI) | payer MEDICARE, MEDICAID | LOC: M LABSMTC 10:28 | PROVIDERS: ATTEND Anesthesiology | DX: Z01.818 Encounter for other preprocedural examination (principal) ==

== ENCOUNTER → 2022-03-22 | Outpatient (CLI) | payer OTHER, MEDICAID ==
[~2022-03-22] MED LIST changes: +ISOVUE-M 300 61% 15ML VIAL As Ordered ONE; +LIDOCAINE 1% SDV 30ML VIAL As Ordered ONE; +diazePAM 2 MG TAB As Ordered ONE; +methylPREDNISolone SUSP 40MG/ML 1ML VIAL (DEPO MEDROL) As Ordered ONE; +oxyCODONE 5MG TAB As Ordered ONE
== END ==
LOC: M PAIN 08:00
PROVIDERS: ATTEND Anesthesiology
DX: M51.16 Intervertebral disc disorders with radiculopathy, lumbar region (principal); G89.29 Other chronic pain; I10 Essential (primary) hypertension; E11.9 Type 2 diabetes mellitus without complications; K21.9 Gastro-esophageal reflux disease without esophagitis; Z87.891 Personal history of nicotine dependence; Z79.82 Long term (current) use of aspirin; Z79.899 Other long term (current) drug therapy
CPT/HCPCS: 62323; Q9967

== ENCOUNTER → 2022-04-12 | Outpatient (CLI) | payer OTHER, MEDICAID ==
[~2022-04-12] MED LIST changes: -ISOVUE-M 300 61% 15ML VIAL As Ordered ONE; -LIDOCAINE 1% SDV 30ML VIAL As Ordered ONE; -diazePAM 2 MG TAB As Ordered ONE; -methylPREDNISolone SUSP 40MG/ML 1ML VIAL (DEPO MEDROL) As Ordered ONE; -oxyCODONE 5MG TAB As Ordered ONE
== END ==
LOC: M PAIN 15:45
PROVIDERS: ATTEND Anesthesiology
DX: G89.29 Other chronic pain (principal); M79.18 Myalgia, other site; M54.2 Cervicalgia; I10 Essential (primary) hypertension; E11.9 Type 2 diabetes mellitus without complications; K21.9 Gastro-esophageal reflux disease without esophagitis; Z87.891 Personal history of nicotine dependence; Z79.82 Long term (current) use of aspirin; Z79.899 Other long term (current) drug therapy

== ENCOUNTER → 2022-05-27 | Outpatient (CLI) | payer OTHER, MEDICAID ==
[~2022-05-27] MED LIST changes: +FLUT50SP17; -FLUTISP; +MONT-5 PO; -SING10TA32 PO
== END ==
LOC: M LABSMTC 12:10
PROVIDERS: ATTEND Anesthesiology
DX: Z01.818 Encounter for other preprocedural examination (principal); Z11.52 Encounter for screening for COVID-19

== ENCOUNTER → 2022-05-27 | Outpatient (CLI) | payer OTHER, MEDICAID ==
[~2022-05-27] MED LIST changes: +BUPIVACAINE HCL 0.25% 10ML VIAL As Ordered ONE; +BUPIVACAINE HCL 0.25% 30ML VIAL As Ordered ONE; -FLUT50SP17; +FLUTISP; +TRIAMCINOLONE ACETONIDE SUSP 40MG/ML 1ML VIAL As Ordered ONE
== END ==
LOC: M PAIN 14:30
PROVIDERS: ATTEND Anesthesiology
DX: M79.18 Myalgia, other site (principal); G89.29 Other chronic pain; I10 Essential (primary) hypertension; E11.9 Type 2 diabetes mellitus without complications; K21.9 Gastro-esophageal reflux disease without esophagitis; Z87.891 Personal history of nicotine dependence; Z79.82 Long term (current) use of aspirin; Z79.899 Other long term (current) drug therapy
CPT/HCPCS: 20553; J3301

== ENCOUNTER → 2022-07-06 | Outpatient (CLI) | payer OTHER, MEDICAID ==
[~2022-07-06] MED LIST changes: -BUPIVACAINE HCL 0.25% 10ML VIAL As Ordered ONE; -BUPIVACAINE HCL 0.25% 30ML VIAL As Ordered ONE; +FLUT50SP17; -FLUTISP; -TRIAMCINOLONE ACETONIDE SUSP 40MG/ML 1ML VIAL As Ordered ONE
[2022-07-06 12:47] LABS: ALBUMIN 3.8 G/DL (3.2-5.2); BILIRUBIN,DIRECT 0.2 MG/DL (<0.4); BILIRUBIN,TOTAL 0.6 MG/DL (0.3-1.2); TOTAL PROTEIN 7.3 G/DL (5.7-8.2)
== END ==
LOC: M LAB 11:33
PROVIDERS: ATTEND Internal Medicine Gastroenterology
DX: R74.01 Elevation of levels of liver transaminase levels (principal)

== ENCOUNTER → 2022-07-06 | Outpatient (CLI) | payer OTHER, MEDICAID ==
[2022-07-06 12:22] LABS: HEMATOCRIT 40.3 % (42.0-52.0); HEMOGLOBIN 13.6 g/dl (13.5-17.5); MEAN CORPUSCULAR HGB CONC 33.7 g/dl (32.0-36.5); MEAN CORPUSCULAR VOLUME 88.8 fl (80.0-96.0); PLATELET COUNT, AUTOMATED 252 10^3/uL (150-450); RED BLOOD COUNT 4.54 10^6/uL (4.30-6.10); WHITE BLOOD COUNT 8.1 10^3/uL (4.0-10.0)
[2022-07-06 12:46] LABS: C REACTIVE PROTEIN QUANTITATIV < 0.40 MG/DL (<1.0)
[2022-07-06 12:47] LABS: CREATININE, URINE 106.8 MG/DL; MAU/CREAT RATIO 15.9 MCG/MG (0.0-30.0)
[2022-07-06 12:48] LABS: HEMOGLOBIN A1c 5.8 % (4.0-6.0)
[2022-07-06 13:02] LABS: ALBUMIN 4.2 G/DL (3.2-5.2); ALKALINE PHOSPHATASE 84 U/L (46-116); ALT/SGPT 28 U/L (7.0-40); AST/SGOT 31 U/L (<34); BILIRUBIN,TOTAL 0.6 MG/DL (0.3-1.2); BLOOD UREA NITROGEN 18 MG/DL (9-23); CALCIUM LEVEL 8.7 MG/DL (8.3-10.6); CARBON DIOXIDE LEVEL 29 MMOL/L (20-31); CHLORIDE LEVEL 104 MMOL/L (98-107); CHOLESTEROL LEVEL 158 MG/DL (<200); CHOLESTEROL RISK RATIO 4.12 (<5); FREE T4 1.08 NG/DL (0.89-1.76); GLOMERULAR FILTRATION RATE > 60.0 (>42); GLUCOSE, FASTING 109 MG/DL (74-106); HDL CHOLESTEROL 38.3 MG/DL (>40); LDL CHOLESTEROL 98.1 MG/DL (<100); NON-HDL-C 119.7 MG/DL; POTASSIUM SERUM 4.4 MMOL/L (3.5-5.1); SODIUM LEVEL 137 MMOL/L (136-145); THYROID STIMULATING HORMONE 1.475 uIU/ML (0.55-4.78); TOTAL 25(OH) VITAMIN D 30.2 NG/ML (20.0-100.0); TOTAL PROTEIN 7.7 G/DL (5.7-8.2); TRIGLYCERIDES LEVEL 108 MG/DL (<150); VITAMIN B12 LEVEL 1224 PG/ML (211-911)
== END ==
LOC: M LAB 11:35
PROVIDERS: ATTEND Internal Medicine Hematology
DX: R79.89 Other specified abnormal findings of blood chemistry (principal); R74.01 Elevation of levels of liver transaminase levels; Z79.899 Other long term (current) drug therapy

== ENCOUNTER → 2022-07-10 | Outpatient (CLI) | payer OTHER, MEDICAID | LOC: M PAIN 15:45 | PROVIDERS: ATTEND Anesthesiology | DX: M54.2 Cervicalgia (principal); M79.18 Myalgia, other site; G89.29 Other chronic pain; I10 Essential (primary) hypertension; E11.9 Type 2 diabetes mellitus without complications; K21.9 Gastro-esophageal reflux disease without esophagitis; Z87.891 Personal history of nicotine dependence; Z79.82 Long term (current) use of aspirin; Z79.899 Other long term (current) drug therapy ==

== ENCOUNTER → 2022-08-06 | Outpatient (REF) | payer OTHER, MEDICAID | LOC: M LABSMT 12:02 | PROVIDERS: ATTEND Urology | DX: Z85.46 Personal history of malignant neoplasm of prostate (principal) ==

== ENCOUNTER → 2022-08-13 | Outpatient (CLI) | payer OTHER, MEDICAID | LOC: M LAB 16:34 | PROVIDERS: ATTEND Urology | DX: Z85.46 Personal history of malignant neoplasm of prostate (principal) ==

== ENCOUNTER → 2022-09-10 | Outpatient (CLI) | payer OTHER, MEDICAID | LOC: M RAD 15:46 | PROVIDERS: ATTEND Internal Medicine Critical Care Medicine | DX: J84.10 Pulmonary fibrosis, unspecified (principal) ==

== ENCOUNTER → 2022-10-11 | Outpatient (CLI) | payer OTHER, MEDICAID | LOC: M PAIN 13:45 | PROVIDERS: ATTEND Nurse Practitioner Family | DX: M51.16 Intervertebral disc disorders with radiculopathy, lumbar region (principal); G89.29 Other chronic pain; I10 Essential (primary) hypertension; K21.9 Gastro-esophageal reflux disease without esophagitis; Z87.891 Personal history of nicotine dependence; Z79.82 Long term (current) use of aspirin; Z79.899 Other long term (current) drug therapy ==

== ENCOUNTER → 2022-11-20 | Outpatient (CLI) | payer OTHER, MEDICAID ==
[2022-11-20 17:17] LABS: C REACTIVE PROTEIN QUANTITATIV < 0.40 MG/DL (<1.0)
[2022-11-21 15:39] LABS: RHEUMATOID FACTOR QUANT < 3.5 IU/ML (<14)
== END ==
LOC: M LAB 16:00
PROVIDERS: ATTEND Internal Medicine Critical Care Medicine
DX: J84.10 Pulmonary fibrosis, unspecified (principal)

== ENCOUNTER → 2022-12-03 | Outpatient (CLI) | payer OTHER, MEDICAID ==
[~2022-12-03] MED LIST changes: +ISOVUE-M 300 61% 15ML VIAL As Ordered ONE; +LIDOCAINE 1% SDV 30ML VIAL As Ordered ONE; +diazePAM 2 MG TAB As Ordered ONE; +methylPREDNISolone SUSP 40MG/ML 1ML VIAL (DEPO MEDROL) As Ordered ONE; +oxyCODONE 5MG TAB As Ordered ONE
== END ==
LOC: M PAIN 14:15
PROVIDERS: ATTEND Anesthesiology
DX: M51.16 Intervertebral disc disorders with radiculopathy, lumbar region (principal); G89.29 Other chronic pain; Z85.46 Personal history of malignant neoplasm of prostate; Z87.891 Personal history of nicotine dependence; Z80.8 Family history of malignant neoplasm of other organs or systems; Z79.82 Long term (current) use of aspirin; Z79.899 Other long term (current) drug therapy
CPT/HCPCS: 62323; J1030; Q9967

== ENCOUNTER → 2023-01-29 | Outpatient (CLI) | payer OTHER, MEDICAID ==
[~2023-01-29] MED LIST changes: -FLUT50SP17; +FLUTISP; -ISOVUE-M 300 61% 15ML VIAL As Ordered ONE; -LIDOCAINE 1% SDV 30ML VIAL As Ordered ONE; -diazePAM 2 MG TAB As Ordered ONE; -methylPREDNISolone SUSP 40MG/ML 1ML VIAL (DEPO MEDROL) As Ordered ONE; -oxyCODONE 5MG TAB As Ordered ONE
== END ==
LOC: M PAIN 14:15
PROVIDERS: ATTEND Anesthesiology
DX: M51.16 Intervertebral disc disorders with radiculopathy, lumbar region (principal); G89.29 Other chronic pain; I10 Essential (primary) hypertension; E78.00 Pure hypercholesterolemia, unspecified; E11.9 Type 2 diabetes mellitus without complications; K21.9 Gastro-esophageal reflux disease without esophagitis; E55.9 Vitamin D deficiency, unspecified; E53.8 Deficiency of other specified B group vitamins; Z87.891 Personal history of nicotine dependence; N32.81 Overactive bladder; Z85.46 Personal history of malignant neoplasm of prostate; Z79.82 Long term (current) use of aspirin; Z79.899 Other long term (current) drug therapy

== ENCOUNTER → 2023-02-06 | Outpatient (REF) | payer OTHER, MEDICAID | LOC: M SFHCPLAZ 14:45 | PROVIDERS: ATTEND Internal Medicine Hematology | DX: R19.7 Diarrhea, unspecified (principal) ==

== ENCOUNTER 2023-02-28 15:23 | Emergency (ER) | payer OTHER, MEDICAID ==
[~2023-02-28] VITALS: Ht 182.9 cm; Wt 97.4 kg
[2023-02-28] MEDS ORDERED: SODI3NEB (16:19)
[2023-02-28] MEDS ORDERED: OMEP40CA5 (16:19)
[2023-02-28] MEDS ORDERED: DULO1CAP5 (16:19)
[2023-02-28] MEDS ORDERED: TIZA2TA (16:19)
[2023-02-28] MEDS ORDERED: methocarbamoL 500 MG TAB PO ONE (17:45)
[2023-02-28] MEDS ORDERED: predniSONE 20 MG TAB PO ONE (17:45)
[2023-02-28] MEDS ORDERED: ACETAMINOPHEN TAB 650MG DOSE (2X325MG) PO ONE (17:45)
[2023-02-28] MEDS ORDERED: PRED20TA PO (18:47)
[2023-02-28] MEDS ORDERED: METH-1164 PO (18:47)
[2023-02-28 18:58] VITALS: BP 147/78; TEMP 97.8; O2SAT 95
== END 2023-02-28 18:59 | disposition home or self-care (01) ==
LOC: M ED 15:23
DX: M54.50 Low back pain, unspecified (principal); E78.5 Hyperlipidemia, unspecified; K21.9 Gastro-esophageal reflux disease without esophagitis; I10 Essential (primary) hypertension; Z87.891 Personal history of nicotine dependence; Z79.52 Long term (current) use of systemic steroids; Z79.82 Long term (current) use of aspirin; Z79.811 Long term (current) use of aromatase inhibitors; Z79.899 Other long term (current) drug therapy
CPT/HCPCS: 72131; 99283; J7512

== ENCOUNTER → 2023-03-25 | Outpatient (CLI) | payer OTHER, MEDICAID ==
[~2023-03-25] MED LIST changes: +DULO1CAP5; +METH-1164 PO; +OMEP40CA5; +SODI3NEB; +TIZA2TA
[2023-03-25 15:52] LABS: HEMATOCRIT 39.3 % (42.0-52.0); HEMOGLOBIN 13.1 g/dl (13.5-17.5); MEAN CORPUSCULAR HEMOGLOBIN 30.5 pg (27.0-33.0); MEAN CORPUSCULAR HGB CONC 33.3 g/dl (32.0-36.5); MEAN CORPUSCULAR VOLUME 91.6 fl (80.0-96.0); PLATELET COUNT, AUTOMATED 323 10^3/uL (150-450); RED BLOOD COUNT 4.29 10^6/uL (4.30-6.10); WHITE BLOOD COUNT 7.4 10^3/uL (4.0-10.0)
[2023-03-25 16:02] LABS: HEMOGLOBIN A1c 5.8 % (4.0-6.0)
[2023-03-25 16:22] LABS: CREATININE, URINE 156.7 MG/DL
[2023-03-25 16:23] LABS: MAU/CREAT RATIO 12.7 MCG/MG (0.0-30.0)
[2023-03-25 16:24] LABS: CHOLESTEROL RISK RATIO 4.83 (<5); HDL CHOLESTEROL 31.2 MG/DL (>40); LDL CHOLESTEROL 73.4 MG/DL (<100); NON-HDL-C 119.8 MG/DL
[2023-03-25 16:26] LABS: THYROID STIMULATING HORMONE 1.411 uIU/ML (0.55-4.78); TOTAL 25(OH) VITAMIN D 28.2 NG/ML (20.0-100.0)
== END ==
LOC: M LAB 15:20
PROVIDERS: ATTEND Internal Medicine Hematology
DX: E11.9 Type 2 diabetes mellitus without complications (principal); Z98.2 Presence of cerebrospinal fluid drainage device; Z79.899 Other long term (current) drug therapy

== ENCOUNTER → 2023-04-15 | Outpatient (CLI) | payer OTHER, MEDICAID ==
[~2023-04-15] MED LIST changes: +ISOVUE-M 300 61% 15ML VIAL As Ordered ONE; +LIDOCAINE 1% SDV 30ML VIAL As Ordered ONE; +diazePAM 2 MG TAB As Ordered ONE; +methylPREDNISolone SUSP 40MG/ML 1ML VIAL (DEPO MEDROL) As Ordered ONE; +oxyCODONE 5MG TAB As Ordered ONE
== END ==
LOC: M PAIN 14:30
PROVIDERS: ATTEND Anesthesiology
DX: M51.16 Intervertebral disc disorders with radiculopathy, lumbar region (principal); G89.29 Other chronic pain; Z85.46 Personal history of malignant neoplasm of prostate; Z87.891 Personal history of nicotine dependence; Z79.82 Long term (current) use of aspirin; Z79.899 Other long term (current) drug therapy
CPT/HCPCS: 62323; J1030; Q9967

== ENCOUNTER → 2023-05-14 | Outpatient (CLI) | payer OTHER, MEDICAID ==
[~2023-05-14] MED LIST changes: -ISOVUE-M 300 61% 15ML VIAL As Ordered ONE; -LIDOCAINE 1% SDV 30ML VIAL As Ordered ONE; -diazePAM 2 MG TAB As Ordered ONE; -methylPREDNISolone SUSP 40MG/ML 1ML VIAL (DEPO MEDROL) As Ordered ONE; -oxyCODONE 5MG TAB As Ordered ONE
== END ==
LOC: M PAIN 15:00
PROVIDERS: ATTEND Anesthesiology
DX: M54.6 Pain in thoracic spine (principal); M79.10 Myalgia, unspecified site; M25.551 Pain in right hip; Z87.891 Personal history of nicotine dependence; I10 Essential (primary) hypertension; E78.00 Pure hypercholesterolemia, unspecified; E11.9 Type 2 diabetes mellitus without complications; Z79.02 Long term (current) use of antithrombotics/antiplatelets; Z79.51 Long term (current) use of inhaled steroids; Z79.891 Long term (current) use of opiate analgesic; Z79.899 Other long term (current) drug therapy

== ENCOUNTER → 2023-05-28 | Outpatient (CLI) | payer OTHER, MEDICAID | LOC: M PLAIMG 08:53 | PROVIDERS: ATTEND Internal Medicine Hematology | DX: M25.551 Pain in right hip (principal) ==

== ENCOUNTER → 2023-06-26 | Outpatient (CLI) | payer OTHER, MEDICAID ==
[~2023-06-26] MED LIST changes: +TRIAMCINOLONE ACETONIDE SUSP 40MG/ML 1ML VIAL As Ordered ONE
== END ==
LOC: M PAIN 15:30
PROVIDERS: ATTEND Anesthesiology
DX: M79.18 Myalgia, other site (principal); G89.29 Other chronic pain; I10 Essential (primary) hypertension; E78.00 Pure hypercholesterolemia, unspecified; E11.9 Type 2 diabetes mellitus without complications; K21.9 Gastro-esophageal reflux disease without esophagitis; E55.9 Vitamin D deficiency, unspecified; E53.8 Deficiency of other specified B group vitamins; Z87.891 Personal history of nicotine dependence; Z85.46 Personal history of malignant neoplasm of prostate; Z79.82 Long term (current) use of aspirin; Z79.891 Long term (current) use of opiate analgesic; Z79.899 Other long term (current) drug therapy

== ENCOUNTER → 2023-06-26 | Outpatient (CLI) | payer OTHER, MEDICAID ==
[~2023-06-26] MED LIST changes: -TRIAMCINOLONE ACETONIDE SUSP 40MG/ML 1ML VIAL As Ordered ONE
== END ==
LOC: M RAD 13:04
PROVIDERS: ATTEND Anesthesiology
DX: M25.551 Pain in right hip (principal); K57.90 Diverticulosis of intestine, part unspecified, without perforation or abscess without bleeding; M79.18 Myalgia, other site; G89.29 Other chronic pain; I10 Essential (primary) hypertension; E78.00 Pure hypercholesterolemia, unspecified; E11.9 Type 2 diabetes mellitus without complications; K21.9 Gastro-esophageal reflux disease without esophagitis; E55.9 Vitamin D deficiency, unspecified; E53.8 Deficiency of other specified B group vitamins; Z87.891 Personal history of nicotine dependence; Z85.46 Personal history of malignant neoplasm of prostate; Z79.82 Long term (current) use of aspirin; Z79.891 Long term (current) use of opiate analgesic; Z79.899 Other long term (current) drug therapy
CPT/HCPCS: 20552; 73721; J0665; J3301

== ENCOUNTER → 2023-07-01 | Outpatient (REF) | payer OTHER, MEDICAID | LOC: M SFHCDERM 17:46 | PROVIDERS: ATTEND Physician Assistant | DX: L57.0 Actinic keratosis (principal) ==

== ENCOUNTER → 2023-07-10 | Outpatient (CLI) | payer OTHER, MEDICAID | LOC: M LAB 15:04 | PROVIDERS: ATTEND Internal Medicine Critical Care Medicine | DX: J84.10 Pulmonary fibrosis, unspecified (principal) ==

== ENCOUNTER → 2023-08-20 | Outpatient (CLI) | payer OTHER, MEDICAID ==
[~2023-08-20] MED LIST changes: -AZEL0.055; +AZEL1SPR4
[2023-08-20 18:14] LABS: C REACTIVE PROTEIN QUANTITATIV < 0.40 MG/DL (<1.0)
[2023-08-20 18:16] LABS: ALBUMIN 3.8 G/DL (3.2-5.2); ALKALINE PHOSPHATASE 104 U/L (46-116); ALT/SGPT 19 U/L (7.0-40); AST/SGOT 18 U/L (<34); BASO # 0.1 10^3/uL (0.0-0.2); BASO % 0.6 % (0.0-1.0); BILIRUBIN,TOTAL 0.5 MG/DL (0.3-1.2); BLOOD UREA NITROGEN 20 MG/DL (9-23); CALCIUM LEVEL 9.3 MG/DL (8.3-10.6); CARBON DIOXIDE LEVEL 30 MMOL/L (20-31); CHLORIDE LEVEL 104 MMOL/L (98-107); CHOLESTEROL LEVEL 141 MG/DL (<200); CHOLESTEROL RISK RATIO 4.23 (<5); CREATININE FOR GFR 1.01 MG/DL (0.70-1.30); EOS # 0.2 10^3/uL (0.0-0.5); EOS % 1.7 % (0.0-3.0); GLOMERULAR FILTRATION RATE > 60.0 (>42); GLUCOSE, FASTING 94 MG/DL (74-106); HDL CHOLESTEROL 33.3 MG/DL (>40); HEMATOCRIT 39.9 % (42.0-52.0); HEMOGLOBIN 13.3 g/dl (13.5-17.5); LDL CHOLESTEROL 66.1 MG/DL (<100); LYMPH # 2.6 10^3/uL (1.5-5.0); LYMPH % 29.9 % (24.0-44.0); MEAN CORPUSCULAR HEMOGLOBIN 30.3 pg (27.0-33.0); MEAN CORPUSCULAR HGB CONC 33.3 g/dl (32.0-36.5); MEAN CORPUSCULAR VOLUME 90.9 fl (80.0-96.0); MONO # 1.1 10^3/uL (0.0-0.8); NEUTROPHILS # 4.9 10^3/uL (1.5-8.5); NEUTROPHILS % 55.6 % (36.0-66.0); NON-HDL-C 107.7 MG/DL; PLATELET COUNT, AUTOMATED 302 10^3/uL (150-450); POTASSIUM SERUM 4.4 MMOL/L (3.5-5.1); RED BLOOD COUNT 4.39 10^6/uL (4.30-6.10); SODIUM LEVEL 137 MMOL/L (136-145); TOTAL PROTEIN 7.7 G/DL (5.7-8.2); TRIGLYCERIDES LEVEL 208 MG/DL (<150); WHITE BLOOD COUNT 8.8 10^3/uL (4.0-10.0)
[2023-08-20 18:17] LABS: TOTAL 25(OH) VITAMIN D 31.5 NG/ML (20.0-100.0); VITAMIN B12 LEVEL 784 PG/ML (211-911)
[2023-08-20 18:18] LABS: THYROID STIMULATING HORMONE 1.254 uIU/ML (0.55-4.78)
[2023-08-20 18:28] LABS: HEMOGLOBIN A1c 5.8 % (4.0-6.0)
[2023-08-20 18:39] LABS: CREATININE, URINE 165.2 MG/DL
== END ==
LOC: M PLALAB 15:18
PROVIDERS: ATTEND Internal Medicine Hematology
DX: K75.81 Nonalcoholic steatohepatitis (NASH) (principal); I10 Essential (primary) hypertension; Z79.899 Other long term (current) drug therapy

== ENCOUNTER → 2023-09-24 | Outpatient (CLI) | payer OTHER, MEDICAID | LOC: M RAD 10:00 | PROVIDERS: ATTEND Nurse Practitioner Acute Care | DX: 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 [Churg-Strauss] (principal); J84.10 Pulmonary fibrosis, unspecified ==

== ENCOUNTER 2023-10-16 10:53 | Day surgery (SDC) | payer MEDICAID, OTHER ==
[~2023-10-16] VITALS: Ht 182.9 cm; Wt 90.2 kg
[~2023-10-16 10:53] MED LIST changes: -DULO1CAP5; +DULO1CAP5 PO; -OMEP40CA5; +THERTAB52 PO; -TIZA2TA; +TIZA2TA PO
[2023-10-16] MEDS: NS 1,000 ML IV ONE (12:30)
[2023-10-16] MEDS ORDERED: LIDOCAINE 2% 100MG/5ML SDV (FOR ANES.) As Ordered ONE (13:34)
[2023-10-16] MEDS ORDERED: propofoL 200 MG/20 ML VIAL As Ordered ONE (13:34)
[2023-10-16] MEDS ORDERED: fentaNYL 100 MCG/2 ML INJECTION As Ordered ONE (13:35)
[2023-10-16 13:56] VITALS: TEMP 98.9
[2023-10-16 14:11] VITALS: BP 161/74; O2SAT 95
== END 2023-10-16 14:19 | disposition home or self-care (01) ==
LOC: M OPP 10:53
PROVIDERS: ATTEND Internal Medicine Gastroenterology
DX: K44.9 Diaphragmatic hernia without obstruction or gangrene (principal); R05.3 Chronic cough; J45.909 Unspecified asthma, uncomplicated; K76.0 Fatty (change of) liver, not elsewhere classified; Z87.891 Personal history of nicotine dependence; Z79.01 Long term (current) use of anticoagulants; Z79.02 Long term (current) use of antithrombotics/antiplatelets; Z79.1 Long term (current) use of non-steroidal anti-inflammatories (NSAID); Z79.82 Long term (current) use of aspirin; Z79.891 Long term (current) use of opiate analgesic; Z79.899 Other long term (current) drug therapy; Z79.620 Long term (current) use of immunosuppressive biologic
CPT/HCPCS: 43235; J3010

== ENCOUNTER 2023-11-04 14:16 | Emergency (ER) | payer OTHER, MEDICAID ==
[~2023-11-04] VITALS: Ht 182.9 cm; Wt 91.9 kg
[2023-11-04 17:10] VITALS: BP 136/72; TEMP 98.1; O2SAT 97
== END 2023-11-04 17:12 | disposition home or self-care (01) ==
LOC: M ED 14:16
DX: J06.9 Acute upper respiratory infection, unspecified (principal); E11.9 Type 2 diabetes mellitus without complications; I10 Essential (primary) hypertension; E78.5 Hyperlipidemia, unspecified; Z87.891 Personal history of nicotine dependence; Z79.52 Long term (current) use of systemic steroids; Z79.811 Long term (current) use of aromatase inhibitors; Z79.899 Other long term (current) drug therapy

== ENCOUNTER → 2023-11-17 | Outpatient (CLI) | payer OTHER, MEDICAID ==
[2023-11-17 15:49] LABS: BASO # 0.1 10^3/uL (0.0-0.2); BASO % 0.3 % (0.0-1.0); EOS # 0.1 10^3/uL (0.0-0.5); EOS % 0.7 % (0.0-3.0); HEMATOCRIT 34.2 % (42.0-52.0); LYMPH # 1.3 10^3/uL (1.5-5.0); LYMPH % 8.2 % (24.0-44.0); MEAN CORPUSCULAR HEMOGLOBIN 29.3 pg (27.0-33.0); MEAN CORPUSCULAR HGB CONC 32.2 g/dl (32.0-36.5); MONO # 1.4 10^3/uL (0.0-0.8); MONO % 8.9 % (2.0-8.0); NEUTROPHILS # 12.9 10^3/uL (1.5-8.5); NEUTROPHILS % 80.9 % (36.0-66.0); PLATELET COUNT, AUTOMATED 542 10^3/uL (150-450); RED BLOOD COUNT 3.76 10^6/uL (4.30-6.10); WHITE BLOOD COUNT 15.9 10^3/uL (4.0-10.0)
[2023-11-17 16:10] LABS: BLOOD UREA NITROGEN 22 MG/DL (9-23); CALCIUM LEVEL 8.3 MG/DL (8.3-10.6); CARBON DIOXIDE LEVEL 27 MMOL/L (20-31); CHLORIDE LEVEL 103 MMOL/L (98-107); CREATININE FOR GFR 1.11 MG/DL (0.70-1.30); GLOMERULAR FILTRATION RATE > 60.0 (>35); GLUCOSE, FASTING 160 MG/DL (74-106); POTASSIUM SERUM 4.3 MMOL/L (3.5-5.1); SODIUM LEVEL 136 MMOL/L (136-145)
[2023-11-17 16:14] LABS: ERYTHROCYTE SEDIMENTATION RATE 86 mm/hr (0-20)
[2023-11-17 16:23] LABS: PROCALCITONIN 0.31 ng/ml
== END ==
LOC: M LAB 14:53
PROVIDERS: ATTEND Internal Medicine Critical Care Medicine
DX: J18.9 Pneumonia, unspecified organism (principal)

== ENCOUNTER → 2023-11-18 | Outpatient (CLI) | payer OTHER, MEDICAID ==
[2023-11-20 12:22] LABS: QuantiFERON-TB Gold Plus NEGATIVE (NEGATIVE)
== END ==
LOC: M LAB 13:01
PROVIDERS: ATTEND Internal Medicine Critical Care Medicine
DX: J18.9 Pneumonia, unspecified organism (principal)

== ENCOUNTER 2023-12-10 12:26 | Inpatient (IN) | payer OTHER, MEDICAID ==
[2023-12-10] VITALS (17 sets, daily range): BP systolic 133–159; BP diastolic 61–76; TEMP 100; O2SAT 86–95
[~2023-12-10] VITALS: Ht 182.9 cm; Wt 84.9 kg
[~2023-12-10 12:26] MED LIST changes: +GABA-1172 PO; -GABA-282 PO
[2023-12-10 13:03] LABS: BASO # 0.1 10^3/uL (0.0-0.2); BASO % 0.3 % (0.0-1.0); HEMATOCRIT 32.5 % (42.0-52.0); HEMOGLOBIN 10.3 g/dl (13.5-17.5); LYMPH # 1.2 10^3/uL (1.5-5.0); LYMPH % 5.2 % (24.0-44.0); MEAN CORPUSCULAR HEMOGLOBIN 27.8 pg (27.0-33.0); MEAN CORPUSCULAR HGB CONC 31.7 g/dl (32.0-36.5); MEAN CORPUSCULAR VOLUME 87.8 fl (80.0-96.0); MONO # 1.3 10^3/uL (0.0-0.8); MONO % 5.7 % (2.0-8.0); NEUTROPHILS # 19.4 10^3/uL (1.5-8.5); NEUTROPHILS % 87.6 % (36.0-66.0); PLATELET COUNT, AUTOMATED 454 10^3/uL (150-450); WHITE BLOOD COUNT 22.2 10^3/uL (4.0-10.0)
[2023-12-10 13:28] LABS: ALBUMIN 1.8 G/DL (3.2-5.2); BILIRUBIN,DIRECT 0.2 MG/DL (<0.4); BILIRUBIN,TOTAL 0.5 MG/DL (0.3-1.2); CALCIUM LEVEL 8.6 MG/DL (8.3-10.6); CREATININE FOR GFR 1.39 MG/DL (0.70-1.30); GLOMERULAR FILTRATION RATE 52.3 (>35); POTASSIUM SERUM 4.4 MMOL/L (3.5-5.1); TOTAL PROTEIN 6.4 G/DL (5.7-8.2)
[2023-12-10 13:29] LABS: THYROID STIMULATING HORMONE 2.008 uIU/ML (0.55-4.78); THYROXINE (T4) 5.4 UG/DL (4.5-10.9)
[2023-12-10 13:30] LABS: INR 1.38; PARTIAL THROMBOPLASTIN TIME 37.2 SECONDS (24.8-34.2); PROTHROMBIN TIME 16.6 SECONDS (12.5-14.5)
[2023-12-10 13:34] LABS: PROCALCITONIN 0.81 ng/ml
[2023-12-10 13:41] LABS: ABG BASE EXCESS -2.5 (-2.0-2.0); ABG HCO3 19.4 MMOL/L (22.0-26.0); ABG O2 SATURATION 98.9 % (95.0-99.0); ABG PARTIAL PRESSURE CO2 24.2 mmHg (35.0-45.0); ABG PARTIAL PRESSURE O2 134.9 mmHg (75.0-100.0); ABG STANDARD HCO3 22.4 MMOL/L. (22.0-26.0); ABG TOTAL CO2 20.1 MMOL/L (23.0-31.0); ABG pH (ARTERIAL) 7.522 UNITS (7.350-7.450)
[2023-12-10] MEDS ORDERED: ISOVUE-370 76% 100ML VIAL As Ordered ONE (13:59)
[2023-12-10] MEDS: cefTRIAXone SOD 2 GM in D5W MINI-BAG PLUS 50 ML IV ONE (15:02)
[2023-12-10] MEDS: AZITHROMYCIN INJ 500 MG, VIAL MATE ADAPTER 1 EACH in D5W 250 ML IV ONE (15:54)
[2023-12-10] MEDS ORDERED: PANT40TA29 PO (17:32)
[2023-12-10] MEDS ORDERED: FLUT1BLS5 IH (17:32)
[2023-12-10] MEDS ORDERED: AZEL1SPR3 (17:33)
[2023-12-10] MEDS ORDERED: HOME MED LIST COMPLETE! XX SCH (17:35)
[2023-12-10] MEDS ORDERED: VANCOMYCIN 1,750 MG/350 ML IV BAG *LOAD IV ONE (17:55)
[2023-12-10] MEDS: VANCOMYCIN/WATER FOR INJ (PEG) 1,750 MG in IV 1 EA IV ONE (18:25)
[2023-12-10] MEDS: FUROSEMIDE 40MG/4ML VIAL IV SCH (19:17)
[2023-12-10] MEDS: methylPREDNISolone 125MG 2ML VIAL IV SCH (19:17)
[2023-12-10] MEDS: CEFEPIME HCL 2 GM in D5W MINI-BAG PLUS 50 ML IV SCH (22:12)
[2023-12-10] MEDS: ACETAMINOPHEN *IV* 1,000 MG in IV 1 EA IV ONE (23:06)
[2023-12-11] VITALS (20 sets, daily range): BP systolic 117–171; BP diastolic 62–80; TEMP 97.3–99.3; O2SAT 79–98
[2023-12-11] MEDS ORDERED: VANCOMYCIN 1,250 MG/250 ML IV BAG IV SCH (04:00)
[2023-12-11 04:51] LABS: HEMATOCRIT 28.8 % (42.0-52.0); HEMOGLOBIN 9.3 g/dl (13.5-17.5); MEAN CORPUSCULAR HEMOGLOBIN 27.4 pg (27.0-33.0); MEAN CORPUSCULAR HGB CONC 32.3 g/dl (32.0-36.5); PLATELET COUNT, AUTOMATED 406 10^3/uL (150-450); RED BLOOD COUNT 3.39 10^6/uL (4.30-6.10); WHITE BLOOD COUNT 14.7 10^3/uL (4.0-10.0)
[2023-12-11 05:12] LABS: ALBUMIN 1.8 G/DL (3.2-5.2); BILIRUBIN,TOTAL 0.3 MG/DL (0.3-1.2); CALCIUM LEVEL 8.4 MG/DL (8.3-10.6); CREATININE FOR GFR 1.35 MG/DL (0.70-1.30); GLOMERULAR FILTRATION RATE 54.1 (>35); POTASSIUM SERUM 3.6 MMOL/L (3.5-5.1); TOTAL PROTEIN 6.5 G/DL (5.7-8.2)
[2023-12-11] MEDS: guaiFENesin ER TABLET 600 MG TAB PO ONE (05:14)
[2023-12-11] MEDS: HEPARIN SOD (PORCINE) 5000UNITS/ML 1ML VIAL/SYRINGE SC SCH (05:15)
[2023-12-11] MEDS: ALBUTEROL SULFATE 2.5MG/0.5ML INH NEB SOLN NEB PRN (05:56)
[2023-12-11 08:26] LABS: C REACTIVE PROTEIN QUANTITATIV 29.8 MG/DL (<1.0)
[2023-12-11 08:27] LABS: MAGNESIUM LEVEL 1.7 MG/DL (1.8-2.4); PHOSPHORUS LEVEL 5.3 MG/DL (2.4-5.1)
[2023-12-11] MEDS: FORMOTEROL FUMARATE 20 MCG/2 ML INHALATION SOLUTION (PERFOROMIST) INH SCH (08:49)
[2023-12-11 09:43] LABS: ERYTHROCYTE SEDIMENTATION RATE 96 mm/hr (0-20)
[2023-12-11] MEDS ORDERED: MAGNESIUM SULFATE 1GM/100ML D5W BAG (10MG/ML) As Ordered ONE (09:49)
[2023-12-11] MEDS ORDERED: dexmedeTOMIDine (4MCG/ML)200MCG/50ML BTL (PRECEDEX) As Ordered ONE (09:58)
[2023-12-11] MEDS: PANTOPRAZOLE 40MG VIAL IV SCH (10:13)
[2023-12-11] MEDS: methylPREDNISolone 1,000 MG, VIAL MATE ADAPTER 1 EACH in NS 250 ML IV SCH (10:25)
[2023-12-11] MEDS: dexmedeTOMidine 200 MCG in IV 1 EA IV SCH (10:28)
[2023-12-11] MEDS: MAG SULF 1GM/100ML (MAG RUN) 1 GM in IV 1 EA IV ONE (10:28)
[2023-12-11] MEDS: AZITHROMYCIN INJ 500 MG, VIAL MATE ADAPTER 1 EACH in NS 250 ML IV SCH (15:13)
[2023-12-11 17:46] LABS: ALBUMIN 1.8 G/DL (3.2-5.2); BILIRUBIN,TOTAL 0.3 MG/DL (0.3-1.2); CALCIUM LEVEL 8.3 MG/DL (8.3-10.6); CREATININE FOR GFR 1.33 MG/DL (0.70-1.30); GLOMERULAR FILTRATION RATE 55.1 (>35); POTASSIUM SERUM 3.4 MMOL/L (3.5-5.1); TOTAL PROTEIN 6.6 G/DL (5.7-8.2)
[2023-12-11] MEDS ORDERED: POTASSIUM CHLORIDE 10MEQ SR TABLET PO ONE (19:10)
[2023-12-11] MEDS: KCL 10MEQ/100ML SWI (KRUN) 10 MEQ in IV 1 EA IV SCH (19:56)
[2023-12-12] VITALS (22 sets, daily range): BP systolic 79–188; BP diastolic 52–96; TEMP 97.4–98.7; O2SAT 66–95
[2023-12-12] MEDS: LORazepam 2 MG/ML 1ML VIAL IV STA (03:11)
[2023-12-12 03:13] LABS: ABG BASE EXCESS 0.2 (-2.0-2.0); ABG HCO3 24.5 MMOL/L (22.0-26.0); ABG O2 SATURATION 84.5 % (95.0-99.0); ABG PARTIAL PRESSURE CO2 38.5 mmHg (35.0-45.0); ABG PARTIAL PRESSURE O2 52.3 mmHg (75.0-100.0); ABG STANDARD HCO3 24.4 MMOL/L. (22.0-26.0); ABG TOTAL CO2 25.7 MMOL/L (23.0-31.0); ABG pH (ARTERIAL) 7.422 UNITS (7.350-7.450)
[2023-12-12] MEDS: FUROSEMIDE 40MG/4ML VIAL IV ONE (03:30)
[2023-12-12 04:36] LABS: BASO % 0.1 % (0.0-1.0); HEMATOCRIT 30.4 % (42.0-52.0); LYMPH # 1.1 10^3/uL (1.5-5.0); MEAN CORPUSCULAR HGB CONC 32.9 g/dl (32.0-36.5); MEAN CORPUSCULAR VOLUME 85.2 fl (80.0-96.0); MONO # 0.9 10^3/uL (0.0-0.8); MONO % 4.9 % (2.0-8.0); NEUTROPHILS # 16.7 10^3/uL (1.5-8.5); NEUTROPHILS % 88.3 % (36.0-66.0); PLATELET COUNT, AUTOMATED 501 10^3/uL (150-450); RED BLOOD COUNT 3.57 10^6/uL (4.30-6.10); WHITE BLOOD COUNT 18.9 10^3/uL (4.0-10.0)
[2023-12-12] MEDS ORDERED: LORazepam 2 MG/ML 1ML VIAL IM PRN (05:05)
[2023-12-12 05:10] LABS: ALBUMIN 1.9 G/DL (3.2-5.2); BILIRUBIN,TOTAL 0.3 MG/DL (0.3-1.2); CALCIUM LEVEL 8.2 MG/DL (8.3-10.6); CREATININE FOR GFR 1.4 MG/DL (0.70-1.30); GLOMERULAR FILTRATION RATE 51.9 (>35); POTASSIUM SERUM 3.5 MMOL/L (3.5-5.1); TOTAL PROTEIN 6.9 G/DL (5.7-8.2)
[2023-12-12] MEDS: METOPROLOL 5 MG/5 ML VIAL IV STA (05:16)
[2023-12-12] MEDS: LORazepam 2 MG/ML 1ML VIAL IV PRN ×2 (08:14→16:32)
[2023-12-12] MEDS: diazePAM 10MG/2ML SYRINGE IV ONE (08:27)
[2023-12-12] MEDS: METOPROLOL 5 MG/5 ML VIAL IV PRN (08:34)
[2023-12-12] MEDS ORDERED: LORazepam 2 MG/ML 1ML VIAL IV PRN (09:05)
[2023-12-12] MEDS: LR 1,000 ML IV SCH (09:47)
[2023-12-12] MEDS ORDERED: SALIVA SUBSTITUTE(MOUTHKOTE) BTL MT PRN (11:10)
[2023-12-12] MEDS: diazePAM 10MG/2ML SYRINGE IM PRN (12:46)
[2023-12-12] MEDS ORDERED: SCOPOLAMINE 1MG TRANSDERMAL PATCH TOP PRN (13:00)
[2023-12-12] MEDS ORDERED: ONDANSETRON 4MG 2ML VIAL IV PRN (13:00)
[2023-12-12] MEDS ORDERED: ACETAMINOPHEN 650MG SUPP PR PRN (13:00)
[2023-12-12] MEDS: MEPOLIZUMAB 100 MG/ML SC ONE (14:32)
[2023-12-12] MEDS: MORPHINE 2 MG/ML 1ML VIAL IV PRN (14:40)
[2023-12-12] MEDS ORDERED: MORPHINE 2 MG/ML 1ML VIAL IV PRN (15:30)
[2023-12-12] MEDS: MORPHINE 4 MG/ML 1ML VIAL IV PRN (16:01)
[2023-12-12] MEDS ORDERED: PREPARATION H OINTMENT (HEMORRHOID) TOP PRN (17:50)
[2023-12-14] MEDS ORDERED: NON-FORMULARY 1 EA EA IM ONE (18:15)
[2023-12-15 21:42] LABS: URINE STREP PNEUMONIAE ANTIGEN NOT DETECTED (NOT DETECT)
== END 2023-12-13 05:00 | disposition expired | DRG 196 ==
LOC: EDBD 12:26 → M ED 12:26 → M ED INP 18:34 → M ICU 19:54
PROVIDERS: ADMIT Internal Medicine Pulmonary Disease; ATTEND Internal Medicine
DX: J84.9 Interstitial pulmonary disease, unspecified (principal); J96.01 Acute respiratory failure with hypoxia; J15.69 Pneumonia due to other Gram-negative bacteria; G92.9 Unspecified toxic encephalopathy; 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 [Churg-Strauss]; N17.9 Acute kidney failure, unspecified; J45.909 Unspecified asthma, uncomplicated; C61 Malignant neoplasm of prostate; K21.9 Gastro-esophageal reflux disease without esophagitis; D72.18 Eosinophilia in diseases classified elsewhere; I48.0 Paroxysmal atrial fibrillation; Z51.5 Encounter for palliative care; Z66 Do not resuscitate; Z79.82 Long term (current) use of aspirin; Z79.899 Other long term (current) drug therapy; Z87.891 Personal history of nicotine dependence